=== PATIENT | female | born 1965 | race Two or more races ===

== ENCOUNTER 2020-08-29 08:49 | Outpatient (REF) | payer OTHER, SELFPAY ==
--- NOTE | 2020-08-29 08:53 | XR_ITS ---
EXAMINATION: XR KNEE, RIGHT XR KNEE, LEFT XR KNEE AP STANDING CLINICAL INFORMATION: Pain. COMPARISON: None TECHNIQUE: Lateral, tunnel, and sunrise views of the right knee. Lateral, tunnel, and sunrise views of the left knee. AP bilateral standing view of the knees was obtained. FINDINGS: Right knee: Bony alignment and mineralization are normal. There is very mild asymmetric narrowing of the medial joint space compartment, with a small peripheral osteophyte of the medial articular margin of the patella. The patellofemoral compartment appears mildly narrowed, and there is a patellar articular surface upper pole osteophyte. No fracture, dislocation or joint effusion is seen. There are ossific densities adjacent to the medial femoral condyle. No foreign body is seen. IMPRESSION: 1. There is mild osteoarthritic change of the right patellofemoral compartment, and very mild osteoarthritic change is seen of the medial joint space compartment. 2. No right knee fracture, dislocation or joint effusion is seen. 3. There are Julius-Stieda fragments adjacent to the right medial femoral condyle, suggesting old, healed MCL injury. FINDINGS: Left knee: Bones and soft tissues are normal. No fracture or joint effusion. Alignment is anatomic. Joint spaces are well maintained. No abnormal soft tissue calcification. IMPRESSION: Unremarkable left knee.
== END 2020-08-29 08:50 | disposition home or self-care (01) ==
LOC: CF 08:49
PROVIDERS: PCP Nurse Practitioner Family; Referring Provider Nurse Practitioner Family; Visit Provider Physician Assistant
DX: M22.2X2 Patellofemoral disorders, left knee (principal); M22.2X1 Patellofemoral disorders, right knee; E66.9 Obesity, unspecified; I10 Essential (primary) hypertension; E78.5 Hyperlipidemia, unspecified; I48.0 Paroxysmal atrial fibrillation
CPT/HCPCS: 20610; 73560; 73565; 99213; J1020

== ENCOUNTER 2020-09-14 01:15 | Emergency (ER) | payer OTHER, SELFPAY ==
[2020-09-14 01:25] VITALS: BP 149/70; PULSE 79; RESP 18; TEMP 37.1; O2SAT 100; BMI 36.6
--- NOTE | 2020-09-14 02:08 | CT_ITS ---
EXAMINATION: CT HEAD WITHOUT CONTRAST CLINICAL INFORMATION: Headache COMPARISON: None TECHNIQUE: Contiguous axial imaging was performed from the skull base to vertex without intravenous administration of contrast. This CT examination was performed using dose optimization techniques as appropriate, variously including the following: *Automated exposure control *Adjustment of mA and/or kV according to patient size (this includes techniques or standardized protocols for targeted exams where dose is matched to indication/reason for exam; i.e. extremities or head) *Use of iterative reconstruction technique DLP: 691 mGy-cm FINDINGS: There is no evidence of acute intracranial hemorrhage or territorial infarction. No abnormal mass effect or midline shift is seen. Torres to white matter differentiation is well preserved. No extra-axial fluid collections are identified. The ventricles are normal in size. There is no abnormal attenuation within the brain parenchyma. The osseous structures and soft tissues are normal. There is mild mucosal thickening of the paranasal sinuses. The mastoid air cells are well-aerated. CT/CT head/brain wo con IMPRESSION: No acute intracranial pathology.
--- NOTE | 2020-09-14 02:12 | ED.HA ---
HPI - Headache General Chief Complaint: Headache Stated Complaint: Mult complaints Time Seen by Provider: 09/14/20 02:08 History of Present Illness HPI Narrative: patient is a 55-year-old female with a history of similar headaches in the PAC presented today with having headaches that is bilateral. Not as affecting vision. Excruciating worse with light. Question fever. Also complaining of neck pain. Patient has no focal weaknesses. No change in smell or taste. No coughing or congestion or upper respiratory symptoms. No diaphoresis. Patient is from home. Positive history of high cholesterol. Positive history of hypertension. No history of stroke no history of being on blood thinners. Related Data Home Medications Medication Instructions Recorded Confirmed acetaminophen 300 mg-codeine 30 mg 1 tab PO PRN 08/23/20 tablet amlodipine 10 mg tablet 10 mg PO DAILY 08/23/20 amlodipine 5 mg tablet 5 mg PO DAILY 08/23/20 amoxicillin 875 mg-potassium 1 tab PO BID 08/23/20 clavulanate 125 mg tablet aripiprazole 5 mg tablet 5 mg PO DAILY 08/23/20 atorvastatin 10 mg tablet 10 mg PO DAILY 08/23/20 azithromycin 250 mg tablet mg PO DIRECTED 08/23/20 buprenorphine HCl 750 mcg buccal 750 mcg PO BID 08/23/20 film buspirone 15 mg tablet 15 mg PO BID 08/23/20 carvedilol 25 mg tablet 25 mg PO BID 08/23/20 cholecalciferol (vitamin D3) 50 50 mcg PO DAILY 08/23/20 mcg (2,000 unit) tablet cyclobenzaprine 10 mg tablet 10 mg PO TID 08/23/20 fluticasone propionate 110 0 mcg INHALATION 08/23/20 mcg/actuation HFA aerosol inhaler fluticasone propionate 220 0 mcg INHALATION 08/23/20 mcg/actuation HFA aerosol inhaler lisinopril 40 mg tablet 40 mg PO DAILY 08/23/20 lorazepam 0.5 mg tablet 0 mg PO 08/23/20 omeprazole 20 mg capsule,delayed 20 mg PO DAILY 08/23/20 release oxycodone 10 mg tablet 10 mg PO QID PRN 08/23/20 oxycodone 5 mg tablet 5 mg PO Q12H PRN 08/23/20 penicillin V potassium 500 mg 500 mg PO QID 08/23/20 tablet polyethylene glycol 3350 17 gram 17 g PO DAILY 08/23/20 oral powder packet prednisone 10 mg tablet 0 mg PO DIRECTED 08/23/20 rivaroxaban 20 mg tablet 20 mg PO DAILY 08/23/20 sertraline 100 mg tablet 0 mg PO 08/23/20 spironolactone 25 mg tablet 25 mg PO BID 08/23/20 zolpidem 10 mg tablet 10 mg PO BEDTIME PRN 08/23/20 Previous Rx's Medication Instructions Recorded ondansetron 4 mg PO TID PRN 5 Days #10 tab 09/14/20 Allergies Allergy/AdvReac Type Severity Reaction Status Date / Time ibuprofen [IBUPROFEN] Allergy Mild RASH, Verified 09/14/20 01:24 hives, hives Review of Systems Review of Systems: Constitutional: No Weight loss, No Fever, No Chills, No Night Sweats, No Fatigue, No Malaise ENT/Mouth: No Hearing loss, No Ear Pain, No Nasal Congestion, No Sinus Pain, No Hoarseness, No sore throat, No Rhinorrhea, No Swallowing Difficulty Eyes: No Eye Pain, No Swelling, No Redness, No Foreign Body, No Discharge, No Vision Changes Cardiovascular: No Chest Pain, No SOB, No Dyspnea on Exertion, No Orthopnea, No Edema, No Palpitations Respiratory: No Cough, No Sputum, No Wheezing, No Smoke Exposure, No Dyspnea Gastrointestinal: No Nausea, No Vomiting, No Diarrhea, No Constipation, No abdominal Pain, No Hematochezia, No Melena Genitourinary: no irregular bleeding, No Dysuria, No Urinary Frequency, No Hematuria, No Urinary Incontinence, No Urgency, No Flank Pain, No Urinary Flow Changes, No Hesitancy Musculoskeletal: No joint pain, No Myalgias, No Joint Swelling Skin: No Skin Lesions, No rash Neuro: No Weakness, No Numbness, No Paresthesias, No Loss of Consciousness, No Dizziness, No Headache Psych: No Anxiety/Panic, No Depression, No SI/HI/AH/VH, No Social Issues, Heme/Lymph: No Bruising, No Bleeding,No Lymphadenopathy Endocrine: No Polyuria, No Polydipsia, No Temperature Intolerance [facility] Past Medical History Medical History (Updated 09/14/20 @ 05:37 by Belia Rosa MD) Adenomatous polyp of colon Anxiety Asthma Auditory hallucinations Benign neoplasm breast skin Bursitis, shoulder Calcaneal spur Cervical pain (neck) Depression Dyspepsia Esophagitis GERD (gastroesophageal reflux disease) HTN (hypertension) Hyperlipidemia Hypertensive urgency Impaired glucose tolerance WENDY (obstructive sleep apnea) PAF (paroxysmal atrial fibrillation) Palpitations Xanthelasma Surgical History History of esophagogastroduodenoscopy History of hysterectomy History of removal of cyst Hx of cholecystectomy Status post Margarita fundoplication Family History Family History Father CVD (cardiovascular disease) HTN (hypertension) Diabetes Mother HTN (hypertension) Diabetes CVD (cardiovascular disease) Brother Pacemaker Maternal Grandmother Throat cancer Social History Social History Advance Directives: No Advance Directives Information Provided: No Physical Exam Vital Signs: Vital Signs: Vital Signs Temp Pulse Resp BP Pulse Ox 09/14/20 04:46 98.7 F 09/14/20 03:41 99.6 F 80 18 122/57 L 95 09/14/20 03:04 76 96 09/14/20 01:25 98.7 F 79 18 149/70 H 100 Body Mass Index 36.6 MDM - Headache MDM Narrative Medical decision making narrative: patient has no fever here in the emergency department. White count is normal. Symptoms completely resolved after treatment for migraine. Unlikely to have meningitis neurologically intact. Now there is no photophobia. patient's sed rate is 29 no evidence for temporal arteritis. Patient's CT scan of the head was negative for any gross evidence of bleeding. Patient is well appearing. Symptoms completely resolved. Will have patient continue NSAIDs and discharge patient home close follow-up on an outpatient basis. Differential Diagnosis Differential diagnosis: Likely migraine, tension headache, subarachnoid hemorrhage, headache and meningitis Medical Records Attestation: I reviewed the patient's medical records. Lab Data Attestation: I reviewed the patient's lab results. Result diagrams: 09/14/20 02:55 09/14/20 03:36 Labs: Lab Results 09/14/20 09/14/20 09/14/20 Range/Units 02:55 02:55 02:55 WBC 5.4 (4.8-10.8) X10*3/uL RBC 4.54 (4.20-5.50) X10*6/uL Hgb 12.3 (12.0-16.0) g/dl Hct 37.8 (37-47) % MCV 83.3 (80-98) fL MCH 27.1 (27.0-33.0) pg MCHC 32.5 (31.0-35.0) g/dl RDW 13.6 (11.0-16.0) % Plt Count 206 (160-400) X10*3/uL MPV 11.0 (9.4-12.3) fL Immature Gran % (Auto) 0.2 (0.0-0.4) % Neut % (Auto) 72.6 (45-73) % Lymph % (Auto) 14.3 L (20-40) % Saline % (Auto) 11.4 H (2-11) % Eos % (Auto) 1.1 (0-4) % Baso % (Auto) 0.4 (0-2) % Lymph # (Auto) 0.8 L (1.2-4.9) X10*3/uL Saline # (Auto) 0.6 (0.1-1.2) X10*3/uL Eos # (Auto) 0.1 (0.0-0.4) X10*3/uL Baso # (Auto) 0.0 (0.0-0.2) X10*3/uL Abs Immat Gran (auto) 0.01 (0.00-0.03) X10*3/uL Absolute Neuts (auto) 4.0 (2.0-8.3) X10*3/uL Absolute Nucleated RBC 0.000 (0.0-0.012) X10*3/uL Nucleated RBC % (auto) 0.0 (0.0-0.2) /100WBC ESR 29 H (0-20) MM/HR Sodium Cancelled Potassium Cancelled Chloride Cancelled Carbon Dioxide Cancelled Anion Gap Cancelled BUN Cancelled Creatinine Cancelled Estim Creat Clear Calc Cancelled Estimated GFR Cancelled Random Glucose Cancelled Calcium Cancelled C-Reactive Protein Cancelled Urine Color Urine Appearance Urine pH (5.0-8.0) Ur Specific [place] (1.005-1.025) Urine Protein (NEG-TRACE) MG/DL Urine Glucose (UA) (NEG) MG/DL Urine Ketones (NEG) MG/DL Urine Blood (NEG) Urine Nitrite (NEG) Ur Leukocyte Esterase (NEG) 09/14/20 09/14/20 09/14/20 Range/Units 03:36 03:36 04:47 WBC (4.8-10.8) X10*3/uL RBC (4.20-5.50) X10*6/uL Hgb (12.0-16.0) g/dl Hct (37-47) % MCV (80-98) fL MCH (27.0-33.0) pg MCHC (31.0-35.0) g/dl RDW (11.0-16.0) % Plt Count (160-400) X10*3/uL MPV (9.4-12.3) fL Immature Gran % (Auto) (0.0-0.4) % Neut % (Auto) (45-73) % Lymph % (Auto) (20-40) % Saline % (Auto) (2-11) % Eos % (Auto) (0-4) % Baso % (Auto) (0-2) % Lymph # (Auto) (1.2-4.9) X10*3/uL Saline # (Auto) (0.1-1.2) X10*3/uL Eos # (Auto) (0.0-0.4) X10*3/uL Baso # (Auto) (0.0-0.2) X10*3/uL Abs Immat Gran (auto) (0.00-0.03) X10*3/uL Absolute Neuts (auto) (2.0-8.3) X10*3/uL Absolute Nucleated RBC (0.0-0.012) X10*3/uL Nucleated RBC % (auto) (0.0-0.2) /100WBC ESR (0-20) MM/HR Sodium 139 Potassium 3.5 Chloride 107 Carbon Dioxide 22 Anion Gap 14 BUN 12 Creatinine 0.83 Estim Creat Clear Calc 79.2 Estimated GFR > 60 Random Glucose 109 Calcium 7.6 L C-Reactive Protein 1.41 H Urine Color YELLOW Urine Appearance CLEAR Urine pH 6.5 (5.0-8.0) Ur Specific [place] 1.020 (1.005-1.025) Urine Protein NEG (NEG-TRACE) MG/DL Urine Glucose (UA) NEG (NEG) MG/DL Urine Ketones NEG (NEG) MG/DL Urine Blood NEG (NEG) Urine Nitrite NEG (NEG) Ur Leukocyte Esterase NEG (NEG) Discharge Plan Discharge Clinical Impression: Headache Patient Disposition: Home, Self-Care Instructions: Acute Headache (ED) Prescriptions: New ondansetron 4 mg tablet,disintegrating 4 mg PO TID PRN (Reason: nausea and vomiting) 5 Days Qty: 10 RF: 0 Referrals: Alfredo Massey, [facility] [Primary Care Provider] - 2 days
[2020-09-14 03:00] LABS: MANUAL DIFF FLAG NO
[2020-09-14 03:01] LABS: Basophils Percent Auto 0.4 % (0-2); Eosinophils Absolute Auto 0.1 X10*3/uL (0.0-0.4); Eosinophils Percent Auto 1.1 % (0-4); Hematocrit 37.8 % (37-47); Hemoglobin 12.3 g/dl (12.0-16.0); Imm Gran Abs Auto 0.01 X10*3/uL (0.00-0.03); Imm Gran Pct Auto 0.2 % (0.0-0.4); Lymphocytes Absolute Auto 0.8 X10*3/uL (1.2-4.9); Lymphocytes Percent Auto 14.3 % (20-40); Mean Corpuscular HGB Conc 32.5 g/dl (31.0-35.0); Mean Corpuscular Hemoglobin 27.1 pg (27.0-33.0); Mean Corpuscular Volume 83.3 fL (80-98); Monocytes Absolute Auto 0.6 X10*3/uL (0.1-1.2); Monocytes Percent Auto 11.4 % (2-11); Neutrophils Percent Auto 72.6 % (45-73); Platelet Count 206 X10*3/uL (160-400); Red Blood Count 4.54 X10*6/uL (4.20-5.50); Red Cell Distribution Width 13.6 % (11.0-16.0); White Blood Count 5.4 X10*3/uL (4.8-10.8)
[2020-09-14] MEDS: diphenhydrAMINE HCL 50 MG/ML VIAL 25 MG IVPUSH (03:03)
[2020-09-14] MEDS: Ketorolac Tromethamine 30 MG/ML VIAL IVPUSH (03:03)
[2020-09-14] MEDS: 0.9 % Sodium Chloride 1,000 ML 999 ML IVCONT (03:03)
[2020-09-14 03:04] VITALS: PULSE 76; O2SAT 96
[2020-09-14] MEDS: Prochlorperazine Edisylate 10 MG/2 ML VIAL IVPUSH (03:04)
[2020-09-14 03:35] LABS: Erythrocyte Sedimentation Rate 29 MM/HR (0-20)
[2020-09-14 03:41] VITALS: BP 122/57; PULSE 80; RESP 18; TEMP 37.6; O2SAT 95
[2020-09-14 04:10] LABS: C Reactive Protein 1.41 mg/dL (< or = 0.50)
[2020-09-14 04:11] LABS: Anion Gap 14 (12-20); Blood Urea Nitrogen 12 mg/dL (9-16); Calcium 7.6 mg/dL (8.4-10.2); Carbon Dioxide 22 mmol/L (22-29); Chloride 107 mmol/L (96-108); Creatinine Clr Calc Pharmacy 79.2; Estimated Glomerular Filt Rate > 60; Glucose Random 109 mg/dL (60-115); Potassium 3.5 mmol/l (3.3-5.1); Sodium 139 mmol/L (135-145)
--- NOTE | 2020-09-14 04:24 | PC.NURSE ---
pt reports she is n longer experiencing pain, able to ambulate with steady gait. skin felt ht to touch earlier, now improved. pt never had fever while in ER.
[2020-09-14 04:46] VITALS: TEMP 37.1
[2020-09-14 05:01] LABS: Glucose Urine UA NEG (NEG); Leukocyte Esterase Urine NEG (NEG); Nitrite Urine NEG (NEG); PH 6.5 (5.0-8.0); Urine Blood NEG (NEG); Urine Ketones NEG (NEG); Urine Protein NEG (NEG-TRACE)
[2020-09-14 05:10] LABS: Appearance Urine CLEAR; Color Urine YELLOW
== END 2020-09-14 06:14 | disposition home or self-care (01) ==
PROVIDERS: Emergency Provider Emergency Medicine Emergency Medical Services; PCP Nurse Practitioner Family
DX: R51.9 Headache, unspecified (principal); M54.2 Cervicalgia; Z20.828 Contact with and (suspected) exposure to other viral communicable diseases; Z79.899 Other long term (current) drug therapy
CPT/HCPCS: 36415; 70450; 80048; 81003; 85025; 85652; 86140; 87635; 96361; 96374; 96375; 99284; J1200; J1885

== ENCOUNTER → 2020-10-02 12:42 | Outpatient (BNVA) | payer OTHER, SELFPAY | PROVIDERS: PCP Nurse Practitioner Family; Referring Provider Nurse Practitioner Family; Visit Provider Internal Medicine Gastroenterology | DX: K21.9 Gastro-esophageal reflux disease without esophagitis (principal); K59.09 Other constipation; R68.81 Early satiety; Z86.010 Personal history of colon polyps; Z79.899 Other long term (current) drug therapy | CPT/HCPCS: 99212 ==

== ENCOUNTER 2020-10-09 11:21 | Outpatient (REF) | payer OTHER, SELFPAY | END 2020-10-09 11:22 | disposition home or self-care (01) | LOC: HO.LAB 11:21 | PROVIDERS: Visit Provider Internal Medicine | DX: Z20.828 Contact with and (suspected) exposure to other viral communicable diseases (principal) | CPT/HCPCS: C9803; U0003 ==

== ENCOUNTER 2020-10-24 14:34 | Outpatient (REF) | payer OTHER, SELFPAY ==
[2020-10-26 13:13] LABS: BV Int Neg Control Negative (Negative); BV Int Pos Control Positive (Positive)
== END 2020-10-24 14:35 | disposition home or self-care (01) ==
LOC: HO.LAB 14:34
PROVIDERS: PCP Nurse Practitioner Family; Visit Provider Advanced Practice Midwife
DX: N89.8 Other specified noninflammatory disorders of vagina (principal)
CPT/HCPCS: 87480; 87510; 87660; 99212

== ENCOUNTER → 2020-11-25 09:24 | Outpatient (BNVA) | payer OTHER, SELFPAY | PROVIDERS: PCP Nurse Practitioner Family; Visit Provider Internal Medicine Cardiovascular Disease | DX: I48.0 Paroxysmal atrial fibrillation (principal); I10 Essential (primary) hypertension | CPT/HCPCS: 93005; 99212 ==

== ENCOUNTER 2020-11-25 10:21 | Emergency (ER) | payer OTHER, SELFPAY ==
--- NOTE | 2020-11-25 | XR_ITS ---
EXAMINATION: XR ANKLE, LEFT CLINICAL INFORMATION: Ankle pain. COMPARISON: None TECHNIQUE: AP, lateral, and mortise views of the left ankle. FINDINGS: There is bimalleolar soft tissue swelling. There are small bone fragments lateral to the mid tarsal bones question osteophytosis old healed fracture fragments on AP view. There is a moderate size calcaneal enthesophyte. XR/XR ankle LT min 3V IMPRESSION: No acute fracture or dislocation. Likely lateral enthesophytes are old fracture fragments lateral to the tarsal bones on AP projection. There is however mild bimalleolar soft tissue swelling. There is moderate size calcaneal heel spur.
--- NOTE | 2020-11-25 | XR_ITS ---
EXAMINATION: XR FOOT, LEFT CLINICAL INFORMATION: Foot pain. COMPARISON: None TECHNIQUE: AP, lateral, and oblique views of the left foot. FINDINGS: There is no visible fracture, dislocation or subluxation seen. There are small enthesophyte or bone fragment seen lateral to calculi or cuboid joint space. Same abnormality was seen on the left ankle exam. There is a moderate size calcaneal heel spur. XR/XR foot LT 2V IMPRESSION: Small loose body or an enthesophyte along the lateral foot at the calcaneocuboid junction. Moderate size calcaneal heel enthesophyte. No acute fracture or dislocation seen.
[2020-11-25 10:33] VITALS: BP 153/91; PULSE 68; RESP 18; TEMP 36.9; O2SAT 99; BMI 35.4
--- NOTE | 2020-11-25 10:47 | ED_ITS ---
HPI - Extremity Injury (Lower) General Chief Complaint: Extremity Injury, Lower Stated Complaint: left ankle inj Time Seen by Provider: 11/25/20 10:29 Source: patient Mode of arrival: ambulatory Limitations: no limitations History of Present Illness HPI Narrative: 55-year-old female here with left ankle pain status post fall 4 days ago. Patient tells me she missed a step falling approximately 4 stairs. There was no head strike or head injury or loss of consciousness. She tells me she had inversion injury to her left ankle and now has pain at the site. Pain is worsened with weight-bearing. complaint: ankle injury Onset (ago): day(s) Injury: Left: ankle and foot Type of Injury: inversion Place: home Severity: mild Relieving factors: nothing Exacerbating factors: nothing Context: fall Associated symptoms: swelling and able to partially bear weight Other symptoms: none Related Data Home Medications Medication Instructions Recorded Confirmed amlodipine 10 mg tablet 10 mg PO DAILY 08/23/20 11/25/20 aripiprazole 5 mg tablet 5 mg PO DAILY 08/23/20 11/25/20 buspirone 15 mg tablet 15 mg PO BID 08/23/20 11/25/20 cyclobenzaprine 10 mg tablet 10 mg PO TID 08/23/20 11/25/20 fluticasone propionate 110 0 mcg INHALATION 08/23/20 11/25/20 mcg/actuation HFA aerosol inhaler lisinopril 40 mg tablet 40 mg PO DAILY 08/23/20 11/25/20 lorazepam 0.5 mg tablet 0.5 mg PO tab 08/23/20 11/25/20 omeprazole 20 mg capsule,delayed 20 mg PO DAILY 08/23/20 11/25/20 release polyethylene glycol 3350 17 gram 17 g PO DAILY 08/23/20 11/25/20 oral powder packet sertraline 100 mg tablet 100 mg PO tab 08/23/20 11/25/20 spironolactone 25 mg tablet 25 mg PO BID 08/23/20 11/25/20 zolpidem 10 mg tablet 10 mg PO BEDTIME PRN 08/23/20 11/25/20 cholecalciferol (vitamin D3) 50 50 mcg PO DAILY 11/25/20 11/25/20 mcg (2,000 unit) capsule Previous Rx's Medication Instructions Recorded carvedilol 25 mg tablet 25 mg PO BID 90 Days #180 tab 09/30/20 omeprazole 20 mg capsule,delayed 20 mg PO BID 30 Days #60 cap 10/02/20 release fluticasone propionate 220 220 mcg INHALATION BID 30 Days #12 10/13/20 mcg/actuation HFA aerosol inhaler g atorvastatin 10 mg tablet 10 mg PO DAILY #90 tab 11/07/20 cholecalciferol (vitamin D3) 50 50 mcg PO DAILY #90 tab 11/07/20 mcg (2,000 unit) tablet rivaroxaban 20 mg tablet 20 mg PO DAILY #90 tab 11/10/20 Allergies Allergy/AdvReac Type Severity Reaction Status Date / Time ibuprofen [IBUPROFEN] Allergy Mild RASH, Verified 10/02/20 12:43 hives, hives Review of Systems Review of Systems: Yes all other systems are reviewed and are negative Constitutional: Constitutional: Reports no additional constitutional complaints, Denies body ache(s), Denies chills, Denies fever(s), Denies headache(s) and Denies weakness Eyes: Eyes: Reports no additional eye complaints and Denies change in vision ENT: Reports system reviewed and no additional complaints, except as documented, Denies dizziness, Denies headache(s), Denies nasal congestion, Denies nasal discharge and Denies neck pain Cardiovascular: Cardiovascular: Reports no additional cardiovascular compl aints, Denies chest pain, Denies leg edema and Denies dyspnea Respiratory: Respiratory: Reports no additional respiratory complaints, Denies cough and Denies dyspnea Gastrointestinal: Gastrointestinal: Reports no additional gastrointestinal complaints, Denies abdominal pain, Denies diarrhea, Denies nausea and Denies vomiting Genitourinary: Genitourinary: Reports no additional female genitourinary complaints and Denies urinary incontinence Musculoskeletal: Musculoskeletal: Reports no additional musculoskeletal complaints, Denies back pain, Reports arthralgias, Reports joint swelling, Denies neck pain, Denies numbness and Denies tingling Integumentary/Breasts: Skin/Breast: Reports system reviewed and no additional complaints, except as docu and Denies rash Neurologic: Reports system reviewed and no additional complaints, except as documented, Denies Abnormal speech present, Denies dizziness, Denies headache(s), Denies numbness, Denies tingling and Denies weakness PMFSH Past Medical History Attestation statement: The following information was validated with the patient. Source: old records reviewed and nursing notes reviewed Medical History Adenomatous polyp of colon Anxiety Asthma Auditory hallucinations Benign neoplasm breast skin Bursitis, shoulder Calcaneal spur Cervical pain (neck) Depression Dyspepsia Esophagitis GERD (gastroesophageal reflux disease) HTN (hypertension) Hyperlipidemia Hypertensive urgency Impaired glucose tolerance WENDY (obstructive sleep apnea) PAF (paroxysmal atrial fibrillation) Palpitations Xanthelasma Surgical History H/O esophagogastroduodenoscopy (09/01/15) H/O esophagogastroduodenoscopy (11/13/19) History of esophagogastroduodenoscopy (06/14/12) History of hysterectomy History of removal of cyst Hx of cholecystectomy Hx of colonoscopy Status post Margarita fundoplication (10/27/12) Family History Family History Father CVD (cardiovascular disease) HTN (hypertension) Diabetes Mother HTN (hypertension) Diabetes CVD (cardiovascular disease) Brother Pacemaker Maternal Grandmother Throat cancer Social History Social History Alcohol intake: current Alcohol intake frequency: does not drink Smoking Status: Never smoker Advance Directives: No Advance Directives Information Provided: Yes Physical Exam Vital Signs: Vital Signs: Last Vital Signs Temp 98.5 F 11/25/20 10:33 Pulse 68 11/25/20 10:33 Resp 18 11/25/20 10:33 BP 153/91 H 11/25/20 10:33 Pulse Ox 99 11/25/20 10:33 Body Mass Index 35.4 Const: General: cooperative, healthy appearing, comfortable and no acute d istress Orientation/consciousness: patient oriented x3 Limitations: no limitations HENMT: Head: Yes normal to inspection Ears: hearing grossly normal bilaterally General nose exam: Normal external nose present Face and sinus: Yes normal facial exam Mouth: Normal oral and palatal mucosa present Throat: Yes posterior oropharynx normal Eyes: General: appearance normal, both eyes and all related structures Pupils: Equal, round and reactive pupils present Neck: Neck: Yes normal visual inspection Chest: Chest palpation & inspection: normal inspection of the chest Resp: Effort & Inspection: normal respiratory effort Auscultation: clear to auscultation bilaterally Cardio: Rate: regular rate Rhythm: regular rhythm Peripheral pulses: Peripheral pulses 2+ throughout GI: Inspection: Yes normal to inspection Palpation (GI): Soft to palpation and nontender Auscultation: normal bowel sounds Back/Spine/Pelvis: Thoracic/Lumbar Spine: thoracic and lumbar spine normal to inspection Skin: General skin exam: no rashes or lesions noted Neuro: General: patient oriented x3, no focal motor deficits and normal sensation to monofilament Cranial nerves: Yes Equal, round and reactive pupils present Cognition (Neuro): normal cognition Speech: No Abnormal speech present Gait exam (Neuro): Normal gait present Motor exam (neuro): 5/5 motor strength present throughout Extrem: Other: Pain over to lateral ankle and base of 5th. No swelling, ecchymosis, warmth. FRom of the ankle and foot. NV intact distally. General: Yes normal to inspection Course Course Course Narrative: Will check imaging. 1150-Imaging unremarkable. Likely sprain. Reviewed worrisome signs and symptoms and when to return to the emergency department. Comfortable discharge home. Procedures Orthopedic Splinting/Casting Injury #1: Side: left Lower Extremity Injury Location: ankle Lower Extremity Immobilizer: AirCast Other Orthopedic Equipment: cane MDM - Extremity Injury (Lower) Medical Records Attestation: I reviewed the patient's medical records. Lab Data Attestation: I reviewed the patient's lab results. Imaging Data ankle/foot xray: Attestation: I personally reviewed and interpreted this imaging study as follows: Radiologist's impression: EXAMINATION: XR ANKLE, LEFT CLINICAL INFORMATION: Ankle pain. COMPARISON: None TECHNIQUE: AP, lateral, and mortise views of the left ankle. FINDINGS: There is bimalleolar soft tissue swelling. There are small bone fragments lateral to the mid tarsal bones question osteophytosis old healed fracture fragments on AP view. There is a moderate size calcaneal enthesophyte. XR/XR ankle LT min 3V IMPRESSION: No acute fracture or dislocation. Likely lateral enthesophytes are old fracture fragments lateral to the tarsal bones on AP projection. There is however mild bimalleolar soft tissue swelling. There is moderate size calcaneal heel spur. Discharge Plan Discharge Clinical Impression: Ankle sprain and strain Patient Disposition: Home, Self-Care Instructions: Ankle Sprain (ED) Additional Instructions: Tylenol for pain Ice, rest the ankle and use the air splint as discussed Try to limit some weight-bearing for the next few days to let it heal Prescriptions: No Action carvedilol 25 mg tablet 25 mg PO BID 90 Days Qty: 180 RF: 1 fluticasone propionate 220 mcg/actuation HFA aerosol inhaler 220 mcg inhalation BID 30 Days Qty: 12 RF: 4 cholecalciferol (vitamin D3) 50 mcg (2,000 unit) tablet 50 mcg PO DAILY Qty: 90 RF: 1 atorvastatin 10 mg tablet 10 mg PO DAILY Qty: 90 RF: 2 rivaroxaban [Xarelto] 20 mg tablet 20 mg PO DAILY Qty: 90 RF: 2 omeprazole 20 mg capsule,delayed release(DR/EC) 20 mg PO BID 30 Days Qty: 60 RF: 3 cholecalciferol (vitamin D3) 50 mcg (2,000 unit) capsule 50 mcg PO DAILY RF: 0 zolpidem 10 mg tablet 10 mg PO BEDTIME PRNRF: 0 lorazepam 0.5 mg tablet 0.5 mg PO RF: 0 polyethylene glycol 3350 17 gram powder in packet 17 g PO DAILY RF: 0 aripiprazole 5 mg tablet 5 mg PO DAILY RF: 0 buspirone 15 mg tablet 15 mg PO BID RF: 0 sertraline 100 mg tablet 100 mg PO RF: 0 lisinopril 40 mg tablet 40 mg PO DAILY RF: 0 spironolactone 25 mg tablet 25 mg PO BID RF: 0 omeprazole 20 mg capsule,delayed release(DR/EC) 20 mg PO DAILY RF: 0 amlodipine 10 mg tablet 10 mg PO DAILY RF: 0 cyclobenzaprine 10 mg tablet 10 mg PO TID RF: 0 Flovent HFA 110 mcg/actuation HFA aerosol inhaler 0 mcg inhalation RF: 0 Referrals: Alfredo Massey, [facility] [Primary Care Provider] - 2 days Interventions: ED Discharge Assessment Last Done: 11/25/20 11:40 Discharge Date/Time: 11/25/20 11:41
== END 2020-11-25 11:41 | disposition home or self-care (01) ==
PROVIDERS: Emergency Provider Emergency Medicine; PCP Nurse Practitioner Family
DX: S93.402A Sprain of unspecified ligament of left ankle, initial encounter (principal); S96.912A Strain of unspecified muscle and tendon at ankle and foot level, left foot, initial encounter; W10.8XXA Fall (on) (from) other stairs and steps, initial encounter; Y93.9 Activity, unspecified; Y92.9 Unspecified place or not applicable; Y99.9 Unspecified external cause status
CPT/HCPCS: 73610; 73620; 99282; 99283

== ENCOUNTER → 2020-12-05 09:37 | Outpatient (BNVA) | payer OTHER, SELFPAY | PROVIDERS: PCP Nurse Practitioner Family; Visit Provider Obstetrics & Gynecology | DX: N89.8 Other specified noninflammatory disorders of vagina (principal); N76.0 Acute vaginitis; B96.89 Other specified bacterial agents as the cause of diseases classified elsewhere | CPT/HCPCS: 99212 ==

== ENCOUNTER → 2020-12-12 08:03 | Outpatient (BNVA) | payer OTHER, SELFPAY | PROVIDERS: PCP Nurse Practitioner Family; Visit Provider Nurse Practitioner Family | DX: M47.27 Other spondylosis with radiculopathy, lumbosacral region (principal); M22.2X1 Patellofemoral disorders, right knee; M22.2X2 Patellofemoral disorders, left knee; M25.569 Pain in unspecified knee; M25.469 Effusion, unspecified knee | CPT/HCPCS: 99202 ==

== ENCOUNTER → 2020-12-16 13:51 | Outpatient (BNVA) | payer OTHER, SELFPAY | PROVIDERS: PCP Nurse Practitioner Family; Visit Provider Obstetrics & Gynecology | DX: N89.8 Other specified noninflammatory disorders of vagina (principal) | CPT/HCPCS: 99212 ==

== ENCOUNTER 2020-12-24 12:48 | Outpatient (REF) | payer OTHER, SELFPAY ==
--- NOTE | 2020-12-24 12:50 | US_ITS ---
EXAMINATION: ULTRASOUND EXTREMITY NONVASCULAR CLINICAL INFORMATION: Right knee pain COMPARISON: Previous x-ray August 2020 TECHNIQUE: Grayscale and color imaging of the soft tissues of the right knee FINDINGS: No Hayes's cyst is seen. The popliteal artery and vein are normal-appearing. There is a small suprapatellar joint effusion. US/US extremity nonvascular IMPRESSION: No Hayes's cyst seen.
== END 2020-12-24 12:49 | disposition home or self-care (01) ==
LOC: HO.US 12:48
PROVIDERS: PCP Nurse Practitioner Family; Visit Provider Anesthesiology
DX: M25.561 Pain in right knee (principal); M25.569 Pain in unspecified knee; R60.0 Localized edema
CPT/HCPCS: 76882

== ENCOUNTER → 2020-12-25 12:51 | Outpatient (BNVA) | payer OTHER, SELFPAY | PROVIDERS: PCP Nurse Practitioner Family; Visit Provider Internal Medicine Gastroenterology | DX: Z13.89 Encounter for screening for other disorder (principal) | CPT/HCPCS: Q3014 ==

== ENCOUNTER 2020-12-26 11:17 | Outpatient (REF) | payer OTHER, SELFPAY ==
[2020-12-26 11:38] LABS: MANUAL DIFF FLAG NO
[2020-12-26 11:52] LABS: Basophils Percent Auto 0.6 % (0-2); Eosinophils Absolute Auto 0.2 X10*3/uL (0.0-0.4); Eosinophils Percent Auto 3.1 % (0-4); Hematocrit 42.8 % (37-47); Hemoglobin 13.7 g/dl (12.0-16.0); Imm Gran Abs Auto 0.01 X10*3/uL (0.00-0.03); Imm Gran Pct Auto 0.2 % (0.0-0.4); Lymphocytes Absolute Auto 1.5 X10*3/uL (1.2-4.9); Lymphocytes Percent Auto 22.5 % (20-40); Mean Corpuscular Hemoglobin 26.9 pg (27.0-33.0); Mean Corpuscular Volume 84.1 fL (80-98); Mean Platelet Volume 11.3 fL (9.4-12.3); Monocytes Absolute Auto 0.4 X10*3/uL (0.1-1.2); Monocytes Percent Auto 5.4 % (2-11); Neutrophils Absolute Auto 4.5 X10*3/uL (2.0-8.3); Neutrophils Percent Auto 68.2 % (45-73); Platelet Count 276 X10*3/uL (160-400); Red Blood Count 5.09 X10*6/uL (4.20-5.50); White Blood Count 6.5 X10*3/uL (4.8-10.8)
[2020-12-26 12:19] LABS: Alanine Aminotransferase 21 U/L (0-31); Albumin Level 3.9 g/dL (3.5-5.0); Alkaline Phosphatase 107 U/L (39-117); Anion Gap 15 (12-20); Aspartate Amino Transferase 22 U/L (5-31); Bilirubin Total 0.4 mg/dL (0.0-1.0); Blood Urea Nitrogen 21 mg/dL (9-16); C Reactive Protein 1.32 mg/dL (< or = 0.50); Calcium 9.1 mg/dL (8.4-10.2); Carbon Dioxide 27 mmol/L (22-29); Chloride 105 mmol/L (96-108); Estimated Glomerular Filt Rate > 60; Glucose Random 113 mg/dL (60-115); Lipase 20 U/L (8-78); Potassium 5.2 mmol/L (3.3-5.1); Sodium 142 mmol/L (135-145); Total Protein 7.2 g/dL (6.5-8.0)
[2020-12-26 12:42] LABS: Glucose Urine UA NEG (NEG); Leukocyte Esterase Urine NEG (NEG); Nitrite Urine NEG (NEG); PH 7.5 (5.0-8.0); Urine Blood TRACE (NEG); Urine Ketones NEG (NEG); Urine Protein NEG (NEG-TRACE)
[2020-12-26 12:43] LABS: Appearance Urine CLEAR; Color Urine YELLOW
[2020-12-26 12:56] LABS: RBC Urine 0-2 /HPF (0); WBC Urine 0-2 /HPF (0-4)
[2020-12-26 12:57] LABS: Bacteria Urine TRACE /LPF; Squamous Epithelial Cell Urine 1+ /LPF
== END 2020-12-26 11:18 | disposition home or self-care (01) ==
LOC: HO.LAB 11:17
PROVIDERS: PCP Nurse Practitioner Family; Visit Provider Internal Medicine Gastroenterology
DX: R10.33 Periumbilical pain (principal)
CPT/HCPCS: 36415; 80053; 81001; 83690; 85025; 86140

== ENCOUNTER 2021-01-01 08:35 | Outpatient (REF) | payer OTHER, SELFPAY ==
--- NOTE | ~2021-01-01 | US_ITS ---
EXAMINATION: US ABDOMEN COMPLETE CLINICAL INFORMATION: Periumbilical pain. COMPARISON: CT abdomen and pelvis 08/16/2017. Ultrasound abdomen 07/25/2014. TECHNIQUE: Real-time imaging of the abdominal viscera. FINDINGS: PANCREAS: Most of the pancreas is obscured by overlying gas. ABDOMINAL AORTA: The proximal, mid, and distal segments are normal in caliber. INFERIOR VENA CAVA: Visualized portions are normal. LIVER: Normal. The liver is normal in size. The liver contour is normal. Parenchymal echogenicity is normal. No focal hepatic lesion. There is no intrahepatic biliary duct dilatation seen. GALLBLADDER: Surgically absent. COMMON BILE DUCT: Normal in caliber measuring 0.2 cm in diameter. RIGHT KIDNEY: Normal. No hydronephrosis. No renal calculi or focal parenchymal lesions. The kidney measures 9.1 cm in maximum dimension. LEFT KIDNEY: Normal. No hydronephrosis. No renal calculi or focal parenchymal lesions. The kidney measures 11.0 cm in maximum dimension. SPLEEN: Normal. The spleen measures 10.6 cm in maximum dimension. FREE FLUID: None. US/US abdomen complete IMPRESSION: Unremarkable complete abdomen ultrasound.
== END 2021-01-01 08:36 | disposition home or self-care (01) ==
LOC: HO.US 08:35
PROVIDERS: Visit Provider Internal Medicine Gastroenterology
DX: R10.33 Periumbilical pain (principal)
CPT/HCPCS: 76700

== ENCOUNTER 2021-01-15 09:48 | Outpatient (REF) | payer OTHER, SELFPAY ==
--- NOTE | ~2021-01-15 | XR_ITS ---
EXAMINATION: XR CERVICAL SPINE CLINICAL INFORMATION: M54.2 - Cervicalgia COMPARISON: None TECHNIQUE: 3 views of the cervical spine were obtained. FINDINGS: There is borderline rightward tilting cervical spine. Cervical lordosis is within normal. There is no cervical vertebral compression or visible fracture, destructive process, or prevertebral soft tissue swelling. The odontoid appears intact. There are degenerative disc changes C5-C6 and C6-C7 with disc space narrowing and endplate sclerosis and vertebral spurring. Borderline facet degeneration also present mid cervical spine. No visible erosive changes. XR/XR cervical spine 3V IMPRESSION: Degenerative disc changes and vertebral spurring C5-C6 and C6-C7.
[2021-01-15 11:44] LABS: Alanine Aminotransferase 19 U/L (0-31); Albumin Level 3.9 g/dL (3.5-5.0); Alkaline Phosphatase 114 U/L (39-117); Anion Gap 14 (12-20); Aspartate Amino Transferase 16 U/L (5-31); Bilirubin Total 0.7 mg/dL (0.0-1.0); Blood Urea Nitrogen 15 mg/dL (9-16); Calcium 9.2 mg/dL (8.4-10.2); Carbon Dioxide 28 mmol/L (22-29); Chloride 106 mmol/L (96-108); Cholesterol 200 mg/dL; Estimated Glomerular Filt Rate > 60; Glucose Fasting 119 mg/dL (60-99); HDL Cholesterol 59 mg/dL; LDL Cholesterol Calculated 122 mg/dl; Potassium 4.3 mmol/L (3.3-5.1); Sodium 144 mmol/L (135-145); Total Protein 6.9 g/dL (6.5-8.0); Triglycerides 97 mg/dL
[2021-01-15 12:09] LABS: TSH reflex Free T4 2.71 uIU/mL (0.32-4.0)
[2021-01-15 12:36] LABS: Glucose Urine UA NEG (NEG); Leukocyte Esterase Urine NEG (NEG); Nitrite Urine NEG (NEG); Urine Blood TRACE (NEG); Urine Ketones NEG (NEG); Urine Protein NEG (NEG-TRACE)
[2021-01-15 12:40] LABS: Appearance Urine HAZY; Color Urine YELLOW
[2021-01-15 13:05] LABS: Bacteria Urine TRACE /LPF; RBC Urine 0 /HPF (0); Squamous Epithelial Cell Urine TRACE /LPF; WBC Urine 0 /HPF (0-4)
== END 2021-01-15 09:49 | disposition home or self-care (01) ==
LOC: HO.HMGCLDS 09:48
PROVIDERS: Absent Provider Internal Medicine Gastroenterology; PCP Nurse Practitioner Family; Visit Provider Nurse Practitioner Family
DX: I10 Essential (primary) hypertension (principal); M54.2 Cervicalgia; R10.33 Periumbilical pain
CPT/HCPCS: 36415; 72040; 80053; 80061; 81001; 81003; 84443

== ENCOUNTER 2021-01-27 06:09 | Outpatient (REF) | payer OTHER, SELFPAY ==
--- NOTE | ~2021-01-27 | FL_ITS ---
EXAMINATION: XR FLUOROSCOPY WITH IMAGES CLINICAL INFORMATION: M47.27 - Other spondylosis with radiculopathy, lumbosacral region COMPARISON: CT lumbar spine 12/14/2019 TECHNIQUE: Fluoroscopy performed by María Vicente NP. Fluoroscopy time: 0.3 minutes DAP: 2.29 Gycm2 Images: 1 FINDINGS: There is spinal needle overlying the outer left L5-S1 neural foramen. There is contrast in the nerve sheath with transforaminal epidural extension. FL/FL guidance in treatment room IMPRESSION: Fluoroscopy for pain management procedure.
== END 2021-01-27 06:10 | disposition home or self-care (01) ==
LOC: HO.RADIR 06:09
PROVIDERS: Visit Provider Anesthesiology
DX: M47.27 Other spondylosis with radiculopathy, lumbosacral region (principal); M22.2X1 Patellofemoral disorders, right knee; M22.2X2 Patellofemoral disorders, left knee
CPT/HCPCS: 64483; J3300; Q9967

== ENCOUNTER 2021-01-29 12:44 | Outpatient (REF) | payer OTHER, SELFPAY ==
--- NOTE | ~2021-01-29 | MM_ITS ---
EXAMINATION: MM SCREENING DIGITAL BREAST TOMOSYNTHESIS, BILATERAL CLINICAL INFORMATION: Screening. Asymptomatic. The lifetime risk of breast cancer based on the Tyrer-Cuzick Model is 11.8%. COMPARISON: Mammography: January 24, 2020 and studies dating back to July 14, 2012 TECHNIQUE: Digital breast tomosynthesis is performed in both the craniocaudal and mediolateral oblique views along with computer-aided detection (CAD). Synthesized 2D images are generated from the tomosynthesis. FINDINGS: There are scattered areas of fibroglandular density (ACR BI-RADS breast composition Category b). There are no significant masses, abnormal calcifications, or other abnormalities. MM/MM tomosynthesis screening BI IMPRESSION: There are no significant changes from prior study. ASSESSMENT: BI-RADS 1: Negative RECOMMENDATION: Routine annual mammography screening. This patient's information was entered into a reminder system with a target due date for their next mammogram.
== END 2021-01-29 12:45 | disposition home or self-care (01) ==
LOC: HO.MAMMO 12:44
PROVIDERS: PCP Nurse Practitioner Family; Visit Provider Nurse Practitioner Family
DX: Z12.31 Encounter for screening mammogram for malignant neoplasm of breast (principal)
CPT/HCPCS: 77063; 77067

== ENCOUNTER 2021-02-13 06:58 | Day surgery (SDC) | payer OTHER, SELFPAY ==
[2021-02-06 13:41] VITALS: BMI 39.3
--- NOTE | 2021-02-12 10:36 | P.CONAN_ITS ---
Documented by User: Irais Elizabeth 02/12/21 10:39 HPI - Anesthesia Eval Consult details Narrative: 55yo F for Upper Endoscopy and Colonoscopy Xarelto (PAF, rare symptoms per Cardiology routing visit 11/2020) [facility] Active Problems Active Problems: All Active Problems (Updated 02/06/21 @ 13:40 by Radha Alejo) Patellofemoral arthralgia of both knees (Acute) Obesity (Acute) Foot pain, bilateral (Acute) GERD (gastroesophageal reflux disease) (Acute) Early satiety (Acute) Chronic constipation (Acute) Vaginal lesion (Acute) HTN (hypertension) (Acute) Paroxysmal atrial fibrillation (Acute) Bacterial vaginosis (Acute) Bilateral primary osteoarthritis of knee (Acute) Spondylosis of lumbosacral spine with radiculopathy (Acute) Pain and swelling of knee (Acute) Continuous periumbilical abdominal pain (Acute) Dyslipidemia (Acute) Elevated fasting blood sugar (Acute) Adenomatous polyp of colon (Acute) Cervical pain (neck) (Acute) Past Medical History Medical History (Updated 02/12/21 @ 10:38 by Irais Elizabeth) Adenomatous polyp of colon Anxiety Asthma Auditory hallucinations Benign neoplasm breast skin Bursitis, shoulder Calcaneal spur Cervical pain (neck) Depression Dyspepsia Esophagitis GERD (gastroesophageal reflux disease) HTN (hypertension) Hyperlipidemia Hypertensive urgency Impaired glucose tolerance WENDY (obstructive sleep apnea) PAF (paroxysmal atrial fibrillation) Palpitations Xanthelasma Family History Family History Father CVD (cardiovascular disease) HTN (hypertension) Diabetes Mother HTN (hypertension) Diabetes CVD (cardiovascular disease) Brother Pacemaker Maternal Grandmother Throat cancer Brother No problems noted. Daughter Hx LEEP (loop electrosurgical excision procedure), cervix, Surgical History Surgical History (Updated 02/06/21 @ 13:28 by Radha Alejo) H/O esophagogastroduodenoscopy (09/01/15) H/O esophagogastroduodenoscopy (11/13/19) History of esophagogastroduodenoscopy (06/14/12) History of hysterectomy History of removal of cyst Hx of cholecystectomy Hx of colonoscopy Status post Margarita fundoplication (10/27/12) Social History Social History (Updated 12/25/20 @ 12:55 by Shira Julien [facility]) Household Members: None Are you a primary intensive care specialist to a significant other at home: No Alcohol intake: current Alcohol intake frequency: does not drink Smoking Status: Never smoker Use of substances other than those prescribed or required for medical reasons: No Have you been hit, kicked, punched, or otherwise hurt by someone within the past year? If so, by whom?: No Advance Directives: No Advance Directives Information Provided: No Advance Directives on File: No Recently lost weight without trying: No Current occupational status: disabled Sexual orientation: Straight/Heterosexual Gender identity: female Meds Allergies Allergy/AdvReac Type Severity Reaction Status Date / Time ibuprofen [IBUPROFEN] Allergy Mild RASH, Verified 02/06/21 13:29 hives, hives Home Medications Medication Instructions Recorded Confirmed Last Taken Type amlodipine 10 mg tablet 10 mg PO DAILY 08/23/20 02/06/21 Unknown History aripiprazole 5 mg tablet 5 mg PO DAILY 08/23/20 02/06/21 Unknown History buspirone 15 mg tablet 15 mg PO BID 08/23/20 02/06/21 Unknown History fluticasone propionate 110 1 puff INHALATION BID 08/23/20 02/06/21 Unknown History mcg/actuation HFA aerosol inhaler lisinopril 40 mg tablet 40 mg PO DAILY 08/23/20 02/06/21 Unknown History lorazepam 0.5 mg tablet 0.5 mg PO tab 08/23/20 01/12/21 02/13/21 06:00 History omeprazole 20 mg capsule,delayed 20 mg PO DAILY 08/23/20 02/06/21 Unknown History release polyethylene glycol 3350 17 gram 17 g PO DAILY 08/23/20 01/12/21 Unknown History oral powder packet sertraline 100 mg tablet 100 mg PO tab 08/23/20 01/12/21 Unknown History spironolactone 25 mg tablet 25 mg PO BID 08/23/20 02/06/21 Unknown History zolpidem 10 mg tablet 10 mg PO BEDTIME PRN 08/23/20 02/06/21 Unknown History cholecalciferol (vitamin D3) 50 50 mcg PO DAILY 11/25/20 02/06/21 Unknown History mcg (2,000 unit) capsule Exam Exam Date and Time: February 12, 2021 1036 Height,Weight and Vital Signs: Height 5 ft 2 in Weight 97.522 kg Pertinent Lab Results Pertinent Lab Results: Laboratory Tests 12/26/20 01/15/21 11:32 09:55 WBC 6.5 Hgb 13.7 Hct 42.8 Plt Count 276 D Sodium 144 Potassium 4.3 Chloride 106 Carbon Dioxide 28 BUN 15 Creatinine 0.87 Narrative Narrative: EKG 11/2020 normal sinus rhythm with minimal voltage criteria for LVH with normal axis and normal intervals Assessment and Plan Assessment Anesthesia Assessment: Chart Reviewed Documented by User: Josseline Sosa 02/13/21 08:35 [facility] Past Medical History Medical History (Updated 02/12/21 @ 10:38 by Irais Elizabeth) Adenomatous polyp of colon Anxiety Asthma Auditory hallucinations Benign neoplasm breast skin Bursitis, shoulder Calcaneal spur Cervical pain (neck) Depression Dyspepsia Esophagitis GERD (gastroesophageal reflux disease) HTN (hypertension) Hyperlipidemia Hypertensive urgency Impaired glucose tolerance WENDY (obstructive sleep apnea) PAF (paroxysmal atrial fibrillation) Palpitations Xanthelasma Family History Family History Father CVD (cardiovascular disease) HTN (hypertension) Diabetes Mother HTN (hypertension) Diabetes CVD (cardiovascular disease) Brother Pacemaker Maternal Grandmother Throat cancer Brother No problems noted. Daughter Hx LEEP (loop electrosurgical excision procedure), cervix, Surgical History Surgical History (Updated 02/06/21 @ 13:28 by Radha Alejo) H/O esophagogastroduodenoscopy (09/01/15) H/O esophagogastroduodenoscopy (11/13/19) History of esophagogastroduodenoscopy (06/14/12) History of hysterectomy History of removal of cyst Hx of cholecystectomy Hx of colonoscopy Status post Margarita fundoplication (10/27/12) Social History Social History (Updated 12/25/20 @ 12:55 by Shira Julien [facility]) Household Members: None Are you a primary intensive care specialist to a significant other at home: No Alcohol intake: current Alcohol intake frequency: does not drink Smoking Status: Never smoker Use of substances other than those prescribed or required for medical reasons: No Have you been hit, kicked, punched, or otherwise hurt by someone within the past year? If so, by whom?: No Advance Directives: No Advance Directives Information Provided: No Advance Directives on File: No Recently lost weight without trying: No Current occupational status: disabled Sexual orientation: Straight/Heterosexual Gender identity: female Meds Allergies Allergy/AdvReac Type Severity Reaction Status Date / Time ibuprofen [IBUPROFEN] Allergy Mild RASH, Verified 02/06/21 13:29 hives, hives Home Medications Medication Instructions Recorded Confirmed Last Taken Type amlodipine 10 mg tablet 10 mg PO DAILY 08/23/20 02/06/21 Unknown History aripiprazole 5 mg tablet 5 mg PO DAILY 08/23/20 02/06/21 Unknown History buspirone 15 mg tablet 15 mg PO BID 08/23/20 02/06/21 Unknown History fluticasone propionate 110 1 puff INHALATION BID 08/23/20 02/06/21 Unknown History mcg/actuation HFA aerosol inhaler lisinopril 40 mg tablet 40 mg PO DAILY 08/23/20 02/06/21 Unknown History lorazepam 0.5 mg tablet 0.5 mg PO tab 08/23/20 01/12/21 02/13/21 06:00 History omeprazole 20 mg capsule,delayed 20 mg PO DAILY 08/23/20 02/06/21 Unknown History release polyethylene glycol 3350 17 gram 17 g PO DAILY 08/23/20 01/12/21 Unknown History oral powder packet sertraline 100 mg tablet 100 mg PO tab 08/23/20 01/12/21 Unknown History spironolactone 25 mg tablet 25 mg PO BID 08/23/20 02/06/21 Unknown History zolpidem 10 mg tablet 10 mg PO BEDTIME PRN 08/23/20 02/06/21 Unknown History cholecalciferol (vitamin D3) 50 50 mcg PO DAILY 11/25/20 02/06/21 Unknown History mcg (2,000 unit) capsule Exam Airway Mallampati Class: II TM Dist: >3cm Neck ROM: Full Heart: RRr Lungs: CTA BL Assessment and Plan Assessment Anesthesia Assessment: Anesthesia Plan Discussed and Chart Reviewed Final Anesthetic Review NPO: Yes ASA Class: III Final Preanesthetic Review: No Changes in Pt Med Stat and Consent Obtained/Reviewed Patient Risk: Intermediate Procedure Risk: Intermediate Anesthetic Plan Anesthetic Plan: MAC: Disposition: Standard PACU
[2021-02-13 07:54] VITALS: BP 149/83; PULSE 85; RESP 16; TEMP 36.9; O2SAT 97
[2021-02-13] MEDS: Lactated Ringers 1,000 ML 100 ML IVCONT (08:07)
--- NOTE | 2021-02-13 08:36 | P.OP_ITS ---
Operative Note Operative Note Date of Service: 02/13/21 Narrative: Pre-op diagnosis: colon cancer screening, hx of colon polyps, rectal bleeding, FU of Lynch's Post-op diagnosis: other (GERD, Gastritis, colon polyps, diverticulosis, hemorrhoids) Procedure: FLEXIBLE TRANSORAL UPPER GASTROINTESTINAL ENDOSCOPY WITH BIOPSIES AND ESOPHAGEAL BALLOON DILATION AND COLONOSCOPY TILL CECUM UPPER ENDOSCOPY Consent: Indications for the procedure and potential complications of bleeding, perforation, reaction to medications and missed diagnosis were discussed with the patient and informed consent was obtained. Instrument: Olympus GIF H 190 mid size upper endoscope Monitoring: Vital signs and clinical assessment, continuous EKG monitoring, Pulse oximetry, Carbon Dioxide monitoring and blood pressure monitoring were done throughout the procedure. Procedure: The patient was placed in the left lateral decubitis position and pre-procedure medications were administered and a bite block was placed. The endoscope was inserted into the mouth and advanced under direct vision to the third part of duodenum. A careful inspection was made as the upper endoscope was withdrawn including a retroflexed examination of the proximal stomach; Findings and interventions are described below. Findings: Larynx: Normal Esophagus: GE junction at 35 cms. Focal esophagitis at GE junction with 1 cms tongue of Lynhc's - biopsied. Balloon dilation was performed with 19 and 20 mm CRE balloon x 60 seconds at each level.. Stomach: Mild gastric erythema. Biopsies were obtained. Grade 2 flap valve and intact fundal wrap on retroflexed examination of the cardia. Duodenum: Normal bulb and descending duodenum. Biopsies were obtained from 3rd part of duodenum to check for celiac sprue. Intervention: Biopsies and esophageal balloon dilation to 20 mm (60 Upper Sorbian) as noted above COLONOSCOPY PROCEDURE NOTE Consent: Indications for the procedure and potential complications of bleeding, perforation, reaction to medications and missed diagnosis were discussed with the patient and informed consent was obtained. Instrument: Olympus PCF H 190 L variable stiffness pediatric colonoscope Monitoring: Vital signs and clinical assessment, intermittent blood pressure monitoring, continuous EKG monitoring, Pulse oximetry and Carbon Dioxide monitoring were done throughout the procedure. Colon withdrawl time was 20 minutes. Procedure: The patient was placed in the left lateral decubitis position and pre-procedure medications were administered. After a digital rectal examination of the ano-rectum, the video colonoscope was inserted into the rectum and advanced through the colon to the cecum. The colonoscope was slowly withdrawn in a retrograde panoramic fashion and the colon mucosa was carefully examined including a retroflexed view of the rectum. Findings and interventions are described below. Procedure Difficulty: : Without difficulty Findings: Terminal Ileum: Not evaluated Cecum: Normal Ascending Colon: Normal Transverse Colon: Normal Descending Colon: Moderate diverticulosis Sigmoid Colon: Moderate diverticulosis Rectum: Normal Ano-rectum: Moderate internal hemorrhoids Colon preparation: Fair despite copious irrigation. There was adherent stool in the right and transverse colon. No large lesions were seen Impression and Post Procedure Diagnosis: Endoscopy Findings: ESOPHAGUS: Focal esophagitis at GE junction with 1 cms tongue of Lynch's - biopsied. Balloon dilation was performed with 19 and 20 mm CRE balloon x 60 seconds at each level. STOMACH: Gastritis and intact fundal wrap on retroflexed exam Colonoscopy Findings: No polyps were detected. Moderate diverticulosis seen in the left colon Moderate hemorrhoids on retroflexed exam. Plan: Await pathology results Patient has an appointment on 02/19/21 in the GI [facility] with Mara Burger M.D.. Repeat Colonoscopy interval based on path results - in 3 years due to fair prep. Above findings were reviewed with the patient and GERD and diverticulosis handouts were given in the discharge area Surgeon: Mara Burger MD Anesthesia: MAC (Dr Parrish) Crusher And Blender Operator: Isidro Cedeño Estimated blood loss (mL): 0 Pathology: other (A- SMALL BOWEL BXS R/O CELIAC B- GASTRIC ANTRUM BXS R/O H. PYLORI C- ESOPHAGEAL BXS F/U ON BARETT'S) Condition: stable Disposition: PACU
--- NOTE | 2021-02-13 08:36 | MHC.SHP ---
Pre-Procedural Eval Section A The patient is an INPATIENT: No The History & Physical has been completed within 30 days and I have reviewed it.: No Section B Chief Complaint: reflux disease Details of Present Illness: colon cancer screening, hx of colon polyps, rectal bleeding, FU of Lynch's, dysphagia Relevant Family History (Specify if Yes): No Relevant Social History: None Present Medications: see Short Stay Collaborative assessment Medical History: Significant History (Adenomatous polyp of colon Anxiety Asthma Auditory hallucinations Benign neoplasm breast skin Bursitis, shoulder Calcaneal spur Cervical pain (neck) Depression Dyspepsia Esophagitis GERD (gastroesophageal reflux disease) HTN (hypertension) Hyperlipidemia Hypertensive urgency Impaired glucose toleran) History of Previous Operations: Relevant previous surgery/procedure and date(s) (H/O esophagogastroduodenoscopy (09/01/15) H/O esophagogastroduodenoscopy (11/13/19) History of esophagogastroduodenoscopy (06/14/12) History of hysterectomy History of removal of cyst Hx of cholecystectomy Hx of colonoscopy Status post Margarita fundoplication (10/27/12)) Allergies: Allergies Allergy/AdvReac Type Severity Reaction Status Date / Time ibuprofen [IBUPROFEN] Allergy Mild RASH, Verified 02/06/21 13:29 hives, hives Review of Systems Sugical H&P ROS: Negative: Constitution, Cardiovascular and Respiratory and Yes, Specify: Gastrointestinal (abdominal pain, dysphagia, constipation) Exam Surgical H&P Exam: Normal: Heart, Normal: Lungs, Normal: Extremities and Normal: Abdomen Plan Diagnosis/Plan: Unchanged I have reviewed the history and physical and performed a pertinent physical examination on my patient. No changes have occurred unless specified.
[2021-02-13 09:42] VITALS: BP 120/72; PULSE 77; RESP 16; TEMP 36.9; O2SAT 98
[2021-02-13 09:56] VITALS: BP 125/83; PULSE 68; RESP 18; TEMP 36.8; O2SAT 99
== END 2021-02-13 12:43 | disposition home or self-care (01) ==
PROVIDERS: PCP Nurse Practitioner Family; Visit Provider Internal Medicine Gastroenterology
PROC: (CPT 43249; principal; 2021-02-13 08:20)
DX: Z12.11 Encounter for screening for malignant neoplasm of colon (principal); Z86.010 Personal history of colon polyps; K57.30 Diverticulosis of large intestine without perforation or abscess without bleeding; K64.8 Other hemorrhoids; K21.9 Gastro-esophageal reflux disease without esophagitis; K22.70 Barrett's esophagus without dysplasia; K29.50 Unspecified chronic gastritis without bleeding; I10 Essential (primary) hypertension; G47.33 Obstructive sleep apnea (adult) (pediatric); J45.909 Unspecified asthma, uncomplicated; Z79.899 Other long term (current) drug therapy; Z88.8 Allergy status to other drugs, medicaments and biological substances
CPT/HCPCS: 43249; 43239; G0105; 88305; 88342; C1726

== ENCOUNTER → 2021-02-19 14:41 | Outpatient (BNVA) | payer OTHER, SELFPAY | PROVIDERS: PCP Nurse Practitioner Family; Visit Provider Internal Medicine Gastroenterology | DX: R10.33 Periumbilical pain (principal); K22.70 Barrett's esophagus without dysplasia; K59.09 Other constipation; K21.9 Gastro-esophageal reflux disease without esophagitis; R68.81 Early satiety; D12.6 Benign neoplasm of colon, unspecified; Z79.899 Other long term (current) drug therapy | CPT/HCPCS: 99212 ==

== ENCOUNTER → 2021-03-02 08:10 | Outpatient (BNVA) | payer OTHER, SELFPAY | PROVIDERS: PCP Nurse Practitioner Family; Visit Provider Anesthesiology | DX: M47.27 Other spondylosis with radiculopathy, lumbosacral region (principal); M25.569 Pain in unspecified knee; M25.469 Effusion, unspecified knee; M51.36 Other intervertebral disc degeneration, lumbar region; Z79.899 Other long term (current) drug therapy | CPT/HCPCS: Q3014 ==

== ENCOUNTER → 2021-03-04 10:35 | Outpatient (BNVA) | payer OTHER, SELFPAY | PROVIDERS: PCP Nurse Practitioner Family; Visit Provider Nurse Practitioner Family ==

== ENCOUNTER 2021-03-16 10:24 | Emergency (ER) | payer OTHER, SELFPAY ==
--- NOTE | ~2021-03-16 | XR_ITS ---
EXAMINATION: XR CHEST CLINICAL INFORMATION: Chest pain COMPARISON: Chest radiographs 11/19/2017, 08/03/2017 TECHNIQUE: Portable upright AP view of the chest was obtained. FINDINGS: The lungs are clear. There is no pneumothorax, airspace consolidation, pleural reaction, or groundglass opacity. No effusion. The costophrenic sulci are well-defined. The heart is normal in size. The vascularity is unremarkable. The hilar and mediastinal contours are unremarkable. There are degenerative changes thoracic spine and right axillary clips again seen. XR/XR chest 1V IMPRESSION: Unremarkable examination.
[2021-03-16 11:07] VITALS: BP 173/79; PULSE 67; RESP 18; TEMP 36.8; O2SAT 98; BMI 40.2
--- NOTE | 2021-03-16 11:15 | ECG_ITS ---
Test Reason : CP Blood Pressure : / mmHG Vent. Rate : 061 BPM Atrial Rate : 061 BPM P-R Int : 144 ms QRS Dur : 082 ms QT Int : 434 ms P-R-T Axes : 045 003 046 degrees QTc Int : 436 ms Normal sinus rhythm Minimal voltage criteria for LVH, may be normal variant Borderline ECG When compared with ECG of 31-AUG-2018 17:14, No significant change was found Referred By: Generic ED Physician Electronically Signed By:MARLO LIZAMA MD
--- NOTE | 2021-03-16 11:52 | ED_ITS ---
HPI - Chest Pain General Chief Complaint: Chest Pain Stated Complaint: HBP Time Seen by Provider: 03/16/21 11:51 Source: patient Mode of arrival: ambulatory Limitations: no limitations History of Present Illness HPI narrative: 55 yo female with hx of GERD, HTN, PAF on xarelto comes in with L sided sharp chest pain last night she has had increasing CWP since her last COVID vaccine denies any dyspnea or nausea but notes her BP was up to 190s took her medications always compliant with her AC therapy MD complaint: chest pain Pertinent past history: other Onset (ago): day(s) (last night) Timing of current episode: episodic Prior episodes: Yes Onset: during rest Pain location: left chest Pain radiation: none Severity: moderate Quality: sharp Relieving factors: nothing Exacerbating factors: palpation and movement Context: other (chest pain daily for months/years) Treatment prior to arrival: other (takes all of her medications) Related Data Home Medications Medication Instructions Recorded Confirmed amlodipine 10 mg tablet 10 mg PO DAILY 08/23/20 03/16/21 aripiprazole 5 mg tablet 5 mg PO DAILY 08/23/20 03/16/21 buspirone 15 mg tablet 15 mg PO BID 08/23/20 03/16/21 fluticasone propionate 110 1 puff INHALATION BID 08/23/20 03/16/21 mcg/actuation HFA aerosol inhaler lisinopril 40 mg tablet 40 mg PO DAILY 08/23/20 03/16/21 lorazepam 0.5 mg tablet 0.5 mg PO tab 08/23/20 03/16/21 omeprazole 20 mg capsule,delayed 20 mg PO DAILY 08/23/20 03/16/21 release polyethylene glycol 3350 17 gram 17 g PO DAILY 08/23/20 03/16/21 oral powder packet sertraline 100 mg tablet 100 mg PO tab 08/23/20 03/16/21 spironolactone 25 mg tablet 25 mg PO BID 08/23/20 03/16/21 zolpidem 10 mg tablet 10 mg PO BEDTIME PRN 08/23/20 03/16/21 cholecalciferol (vitamin D3) 50 50 mcg PO DAILY 11/25/20 03/16/21 mcg (2,000 unit) capsule Previous Rx's Medication Instructions Recorded carvedilol 25 mg tablet 25 mg PO BID 90 Days #180 tab 09/30/20 rivaroxaban 20 mg tablet 20 mg PO DAILY #90 tab 11/10/20 blood pressure kit-extra large #1 ea 01/12/21 atorvastatin 20 mg tablet 20 mg PO DAILY 90 Days #90 tab 01/15/21 tizanidine 4 mg tablet 4 mg PO TID PRN 30 Days #90 tab 03/02/21 amoxicillin 875 mg-potassium 1 tab PO BID #20 tab 03/05/21 clavulanate 125 mg tablet cyclobenzaprine 10 mg PO TID PRN #14 tab 03/16/21 lidocaine 1 patch TOPICAL DAILY PRN #10 ea 03/16/21 Allergies Allergy/AdvReac Type Severity Reaction Status Date / Time ibuprofen [IBUPROFEN] Allergy Mild RASH, Verified 03/16/21 11:22 hives, hives Review of Systems Review of Systems: Constitutional : No Weight loss, No Fever, No Chills ENT/Mouth : No sore throat, No Rhinorrhea Eyes: No Eye Pain, No Swelling Cardiovascular : pos Chest Pain, no SOB, no Dyspnea on Exertion, No Orthopnea, No Edema, No Palpitations Respiratory : No Cough, No Sputum Gastrointestinal : no Nausea, No Vomiting, No Diarrhea, No abdominal Pain, No Hematochezia, No Melena Genitourinary : No Dysuria, No Urinary Frequency Musculoskeletal : No joint pain, No Myalgias, No Joint Swelling Skin : No Skin Lesions, No rash Neuro : No Weakness, No Numbness, No Dizziness, No Headache Psych : No Anxiety/Panic, No Depression Heme/Lymph: No Bruising, No Lymphadenopathy Endocrine : No Polyuria, No Polydipsia All other systems reviewed and are negative [facility] Past Medical History Attestation statement: The following information was validated with the patient. Medical History Adenomatous polyp of colon Afib Anxiety Asthma Auditory hallucinations Benign neoplasm breast skin Bursitis, shoulder Calcaneal spur Cervical pain (neck) Depression Disc degeneration, lumbar Dyspepsia Esophagitis GERD (gastroesophageal reflux disease) HTN (hypertension) Hyperlipidemia Hypertensive urgency Impaired glucose tolerance WENDY (obstructive sleep apnea) PAF (paroxysmal atrial fibrillation) Palpitations Xanthelasma Surgical History H/O esophagogastroduodenoscopy (09/01/15) H/O esophagogastroduodenoscopy (11/13/19) History of esophagogastroduodenoscopy (06/14/12) History of hysterectomy History of removal of cyst Hx of cholecystectomy Hx of colonoscopy Status post Margarita fundoplication (10/27/12) Family History Family History Father CVD (cardiovascular disease) HTN (hypertension) Diabetes Mother HTN (hypertension) Diabetes CVD (cardiovascular disease) Brother Pacemaker Maternal Grandmother Throat cancer Brother No problems noted. Daughter Hx LEEP (loop electrosurgical excision procedure), cervix, Social History Social History Household Members: None Alcohol intake: current Alcohol intake frequency: does not drink Smoking Status: Never smoker Advance Directives: No Advance Directives Information Provided: No Current occupational status: disabled Sexual orientation: Straight/Heterosexual Gender identity: female Physical Exam Vital Signs: Vital Signs: Last Vital Signs Temp 98.3 F 03/16/21 11:07 Pulse 59 03/16/21 12:54 Resp 16 03/16/21 12:54 BP 155/80 H 03/16/21 12:54 Pulse Ox 97 03/16/21 12:54 Body Mass Index 40.2 Appearance: Alert. Oriented X3. No acute distress. Eyes: Pupils equal, round and reactive to light. ENT: Pharynx normal. Neck: Normal inspection. Neck supple. CVS: Normal heart rate and rhythm. Pulses normal. Chest: ttp along L lateral pectoral muscle reproduces pain Respiratory: No respiratory distress. Breath sounds normal. Abdomen: Soft and nontender. Skin: Skin warm and dry. Normal skin color. Normal skin turgor. Extremities: No lower extremity edema. No calf ttp Neuro: Oriented X 3. No motor deficit. No sensory deficit. Course Course Course Narrative: no acute findings, stable for DC MDM - Chest Pain MDM Narrative Medical decision making narrative: 55 yo female with hx of GERD, HTN, PAF on xarelto comes in with L sided sharp chest pain last night she has had increasing CWP since her last COVID vaccine denies any dyspnea or nausea but notes her BP was up to 190s took her medications always compliant with her AC therapy - CWP is reproduceable but given age and risk factors will obtain labs, troponin, CXR, treat with muscle relaxers Lab Data Result diagrams: 03/16/21 12:33 03/16/21 12:33 Labs: Lab Results 03/16/21 03/16/21 03/16/21 Range/Units 12:33 12:33 12:33 WBC 6.7 (4.8-10.8) X10*3/uL RBC 4.83 (4.20-5.50) X10*6/uL Hgb 12.8 (12.0-16.0) g/dl Hct 40.4 (37-47) % MCV 83.6 (80-98) fL MCH 26.5 L (27.0-33.0) pg MCHC 31.7 (31.0-35.0) g/dl RDW 14.3 (11.0-16.0) % Plt Count 291 (160-400) X10*3/uL MPV 10.8 (9.4-12.3) fL Immature Gran % (Auto) 0.3 (0.0-0.4) % Neut % (Auto) 68.5 (45-73) % Lymph % (Auto) 23.5 (20-40) % [place] % (Auto) 5.7 (2-11) % Eos % (Auto) 1.6 (0-4) % Baso % (Auto) 0.4 (0-2) % Lymph # (Auto) 1.6 (1.2-4.9) X10*3/uL [place] # (Auto) 0.4 (0.1-1.2) X10*3/uL Eos # (Auto) 0.1 (0.0-0.4) X10*3/uL Baso # (Auto) 0.0 (0.0-0.2) X10*3/uL Abs Immat Gran (auto) 0.02 (0.00-0.03) X10*3/uL Absolute Neuts (auto) 4.6 (2.0-8.3) X10*3/uL Absolute Nucleated RBC 0.000 (0.0-0.012) X10*3/uL Nucleated RBC % (auto) 0.0 (0.0-0.2) /100WBC PT 13.4 H (10.8-13.0) SEC INR 1.1 (0.9-1.1) APTT 39.8 H (24.1-38.0) SEC Sodium 142 (135-145) mmol/L Potassium 4.2 (3.3-5.1) mmol/L Chloride 108 (96-108) mmol/L Carbon Dioxide 28 (22-29) mmol/L Anion Gap 10 L (12-20) BUN 13 (9-16) mg/dL Creatinine 0.83 (0.5-1.4) mg/dL Estim Creat Clear Calc 83.6 Estimated GFR > 60 Random Glucose 112 (60-115) mg/dL Calcium 9.0 (8.4-10.2) mg/dL Magnesium 2.1 (1.6-2.6) mg/dL Total Bilirubin 0.6 (0.0-1.0) mg/dL Direct Bilirubin 0.2 (0.0-0.5) mg/dL AST 12 (5-31) U/L ALT 15 (0-31) U/L Alkaline Phosphatase 98 (39-117) U/L Troponin I High Sens (<3.5-17.0) ng/L Total Protein 6.3 L (6.5-8.0) g/dL Albumin 3.6 (3.5-5.0) g/dL Lipase 18 (8-78) U/L COVID-19 ([facility]) (Negative) COVID-19 Clin Com 03/16/21 03/16/21 Range/Units 12:33 12:33 WBC (4.8-10.8) X10*3/uL RBC (4.20-5.50) X10*6/uL Hgb (12.0-16.0) g/dl Hct (37-47) % MCV (80-98) fL MCH (27.0-33.0) pg MCHC (31.0-35.0) g/dl RDW (11.0-16.0) % Plt Count (160-400) X10*3/uL MPV (9.4-12.3) fL Immature Gran % (Auto) (0.0-0.4) % Neut % (Auto) (45-73) % Lymph % (Auto) (20-40) % [place] % (Auto) (2-11) % Eos % (Auto) (0-4) % Baso % (Auto) (0-2) % Lymph # (Auto) (1.2-4.9) X10*3/uL [place] # (Auto) (0.1-1.2) X10*3/uL Eos # (Auto) (0.0-0.4) X10*3/uL Baso # (Auto) (0.0-0.2) X10*3/uL Abs Immat Gran (auto) (0.00-0.03) X10*3/uL Absolute Neuts (auto) (2.0-8.3) X10*3/uL Absolute Nucleated RBC (0.0-0.012) X10*3/uL Nucleated RBC % (auto) (0.0-0.2) /100WBC PT (10.8-13.0) SEC INR (0.9-1.1) APTT (24.1-38.0) SEC Sodium (135-145) mmol/L Potassium (3.3-5.1) mmol/L Chloride (96-108) mmol/L Carbon Dioxide (22-29) mmol/L Anion Gap (12-20) BUN (9-16) mg/dL Creatinine (0.5-1.4) mg/dL Estim Creat Clear Calc Estimated GFR Random Glucose (60-115) mg/dL Calcium (8.4-10.2) mg/dL Magnesium (1.6-2.6) mg/dL Total Bilirubin (0.0-1.0) mg/dL Direct Bilirubin (0.0-0.5) mg/dL AST (5-31) U/L ALT (0-31) U/L Alkaline Phosphatase (39-117) U/L Troponin I High Sens 4.0 (<3.5-17.0) ng/L Total Protein (6.5-8.0) g/dL Albumin (3.5-5.0) g/dL Lipase (8-78) U/L COVID-19 ([facility]) Negative (Negative) COVID-19 Clin Com See Note ECG Data ECG #1: Attestation: I personally reviewed and interpreted this ECG as follows: ECG interpretation date: 03/16/21 ECG interpretation time: 12:21 Interpretation: Rate: 61 Rhythm: NSR [place]: normal, LVH Normal P waves. Normal CATY. Normal QRS complex. ST T wave : normal, no EMELY qTC: normal prior studies: no acute ischemia The study has been interpreted contemporaneously by me. . Discharge Plan Discharge Clinical Impression: Atypical chest pain Patient Disposition: Home, Self-Care Instructions: Chest Pain (ED) Additional Instructions: return to ED for any worsening symptoms or concerns Prescriptions: New cyclobenzaprine 10 mg tablet 10 mg PO TID PRN (Reason: muscle spasm) Qty: 14 RF: 0 lidocaine 4 % adhesive patch,medicated 1 patch topical DAILY PRN (Reason: pain) Qty: 10 RF: 0 No Action carvedilol 25 mg tablet 25 mg PO BID 90 Days Qty: 180 RF: 1 rivaroxaban [Xarelto] 20 mg tablet 20 mg PO DAILY Qty: 90 RF: 2 atorvastatin 20 mg tablet 20 mg PO DAILY 90 Days Qty: 90 RF: 0 (DME) blood pressure kit-extra large Kit See Rx Instructions .ROUTE .MEDSUPPLY Qty: 1 RF: 0 amoxicillin-pot clavulanate [Augmentin] 875-125 mg tablet 1 tab PO BID Qty: 20 RF: 0 cholecalciferol (vitamin D3) 50 mcg (2,000 unit) capsule 50 mcg PO DAILY RF: 0 zolpidem 10 mg tablet 10 mg PO BEDTIME PRN (Reason: Sleep) RF: 0 lorazepam 0.5 mg tablet 0.5 mg PO RF: 0 polyethylene glycol 3350 17 gram powder in packet 17 g PO DAILY RF: 0 aripiprazole 5 mg tablet 5 mg PO DAILY RF: 0 buspirone 15 mg tablet 15 mg PO BID RF: 0 sertraline 100 mg tablet 100 mg PO RF: 0 lisinopril 40 mg tablet 40 mg PO DAILY RF: 0 spironolactone 25 mg tablet 25 mg PO BID RF: 0 omeprazole 20 mg capsule,delayed release(DR/EC) 20 mg PO DAILY RF: 0 amlodipine 10 mg tablet 10 mg PO DAILY RF: 0 fluticasone propionate 110 mcg/actuation HFA aerosol inhaler 1 puff inhalation BID RF: 0 tizanidine 4 mg tablet 4 mg PO TID PRN (Reason: pain) 30 Days Qty: 90 RF: 8 Referrals: Glogowski,Ganga, PHARMACIST IN CHARGE[facility] [Primary Care Provider] - 2 days (as needed)
[2021-03-16] MEDS: diazePAM 5 MG TABLET PO (12:36)
[2021-03-16 12:38] LABS: MANUAL DIFF FLAG NO
[2021-03-16 12:39] LABS: Basophils Percent Auto 0.4 % (0-2); Eosinophils Absolute Auto 0.1 X10*3/uL (0.0-0.4); Eosinophils Percent Auto 1.6 % (0-4); Hematocrit 40.4 % (37-47); Hemoglobin 12.8 g/dl (12.0-16.0); Imm Gran Abs Auto 0.02 X10*3/uL (0.00-0.03); Imm Gran Pct Auto 0.3 % (0.0-0.4); Lymphocytes Absolute Auto 1.6 X10*3/uL (1.2-4.9); Lymphocytes Percent Auto 23.5 % (20-40); Mean Corpuscular HGB Conc 31.7 g/dl (31.0-35.0); Mean Corpuscular Hemoglobin 26.5 pg (27.0-33.0); Mean Corpuscular Volume 83.6 fL (80-98); Mean Platelet Volume 10.8 fL (9.4-12.3); Monocytes Absolute Auto 0.4 X10*3/uL (0.1-1.2); Monocytes Percent Auto 5.7 % (2-11); Neutrophils Absolute Auto 4.6 X10*3/uL (2.0-8.3); Neutrophils Percent Auto 68.5 % (45-73); Platelet Count 291 X10*3/uL (160-400); Red Blood Count 4.83 X10*6/uL (4.20-5.50); Red Cell Distribution Width 14.3 % (11.0-16.0); White Blood Count 6.7 X10*3/uL (4.8-10.8)
[2021-03-16 12:54] VITALS: BP 155/80; PULSE 59; RESP 16; O2SAT 97
[2021-03-16 12:59] LABS: COVID-19 Test Negative (Negative); IDNOW Serial# 9DD0AD1C
[2021-03-16 13:02] LABS: INTERNATIONAL NORM RATIO 1.1 (0.9-1.1); Prothrombin Time 13.4 SEC (10.8-13.0)
[2021-03-16 13:09] LABS: Partial Thromboplastin Time 39.8 SEC (24.1-38.0)
[2021-03-16 13:12] LABS: Alanine Aminotransferase 15 U/L (0-31); Albumin Level 3.6 g/dL (3.5-5.0); Alkaline Phosphatase 98 U/L (39-117); Anion Gap 10 (12-20); Aspartate Amino Transferase 12 U/L (5-31); Bilirubin Direct 0.2 mg/dL (0.0-0.5); Bilirubin Total 0.6 mg/dL (0.0-1.0); Blood Urea Nitrogen 13 mg/dL (9-16); Carbon Dioxide 28 mmol/L (22-29); Chloride 108 mmol/L (96-108); Creatinine Clr Calc Pharmacy 83.6; Estimated Glomerular Filt Rate > 60; Glucose Random 112 mg/dL (60-115); Lipase 18 U/L (8-78); Magnesium 2.1 mg/dL (1.6-2.6); Potassium 4.2 mmol/L (3.3-5.1); Sodium 142 mmol/L (135-145); Total Protein 6.3 g/dL (6.5-8.0)
== END 2021-03-16 14:03 | disposition home or self-care (01) ==
PROVIDERS: Emergency Provider Emergency Medicine; PCP Nurse Practitioner Family
DX: R07.89 Other chest pain (principal); Z20.822 Contact with and (suspected) exposure to COVID-19; I10 Essential (primary) hypertension; I48.0 Paroxysmal atrial fibrillation; E78.5 Hyperlipidemia, unspecified; Z79.01 Long term (current) use of anticoagulants; Z79.02 Long term (current) use of antithrombotics/antiplatelets
CPT/HCPCS: 36415; 71045; 80048; 80076; 83690; 83735; 84484; 85025; 85610; 85730; 87635; 93005; 99283; 99284

== ENCOUNTER 2021-04-17 09:33 | Emergency (ER) | payer OTHER, SELFPAY ==
--- NOTE | ~2021-04-17 | XR_ITS ---
EXAMINATION: XR KNEE, RIGHT, LEFT HAND/WRIST CLINICAL INFORMATION: Fall COMPARISON: None TECHNIQUE: Four views of the right knee. FINDINGS: No loss of patellofemoral and medial compartment joint space. No visible acute fracture or dislocation seen. There is mild superior patellar and medial compartment periarticular spurring. No visible acute fracture, dislocation or lytic process seen. No soft tissue swelling or loose bodies. XR/XR hand wrist LT IMPRESSION: Mild degenerative changes medial and patellar femoral compartment. No visible acute fracture or dislocation seen.
--- NOTE | ~2021-04-17 | XR_ITS ---
EXAMINATION: XR KNEE, RIGHT, LEFT HAND/WRIST CLINICAL INFORMATION: Fall COMPARISON: None TECHNIQUE: Four views of the right knee. FINDINGS: No loss of patellofemoral and medial compartment joint space. No visible acute fracture or dislocation seen. There is mild superior patellar and medial compartment periarticular spurring. No visible acute fracture, dislocation or lytic process seen. No soft tissue swelling or loose bodies. XR/XR knee RT 3V IMPRESSION: Mild degenerative changes medial and patellar femoral compartment. No visible acute fracture or dislocation seen.
[2021-04-17 09:55] VITALS: BP 193/93; PULSE 76; RESP 16; TEMP 36.4; O2SAT 98; BMI 39.3
[2021-04-17] MEDS: Cyclobenzaprine HCl 5 MG TABLET PO (11:17)
--- NOTE | 2021-04-17 11:32 | ED_ITS ---
HPI - Back Pain/Injury General Chief Complaint: Back Pain/Injury Stated Complaint: FALL L SIDE AND BACK PAIN Time Seen by Provider: 04/17/21 10:12 Source: patient Mode of arrival: ambulatory History of Present Illness HPI Narrative: 56-year-old female with a past medical history of AFib, anxiety, asthma, depression, GERD, HTN, WENDY to the ED complaining of acute on chronic low back pain radiating down LLE exacerbated s/p mechanical fall down 1 step yesterday. Also reports right knee and left wrist pain after fall, denies symptoms prior to fall including headache, lightheadedness/dizziness or CP/SOB. Reports legs gave out secondary to back pain which she has been trying to see her pain management for. Denies head trauma or LOC. denies numbness, tingling, weakness, urinary incontinence/retention, abdominal pain, nausea/vomiting MD elicited complaint: back pain and fall Related Data Home Medications Medication Instructions Recorded Confirmed amlodipine 10 mg tablet 10 mg PO DAILY 08/23/20 03/16/21 aripiprazole 5 mg tablet 5 mg PO DAILY 08/23/20 03/16/21 buspirone 15 mg tablet 15 mg PO BID 08/23/20 03/16/21 fluticasone propionate 110 1 puff INHALATION BID 08/23/20 03/16/21 mcg/actuation HFA aerosol inhaler lisinopril 40 mg tablet 40 mg PO DAILY 08/23/20 03/16/21 lorazepam 0.5 mg tablet 0.5 mg PO tab 08/23/20 03/16/21 omeprazole 20 mg capsule,delayed 20 mg PO DAILY 08/23/20 03/16/21 release polyethylene glycol 3350 17 gram 17 g PO DAILY 08/23/20 03/16/21 oral powder packet sertraline 100 mg tablet 100 mg PO tab 08/23/20 03/16/21 spironolactone 25 mg tablet 25 mg PO BID 08/23/20 03/16/21 zolpidem 10 mg tablet 10 mg PO BEDTIME PRN 08/23/20 03/16/21 cholecalciferol (vitamin D3) 50 50 mcg PO DAILY 11/25/20 03/16/21 mcg (2,000 unit) capsule Previous Rx's Medication Instructions Recorded rivaroxaban 20 mg tablet 20 mg PO DAILY #90 tab 11/10/20 blood pressure kit-extra large #1 ea 01/12/21 atorvastatin 20 mg tablet 20 mg PO DAILY 90 Days #90 tab 01/15/21 tizanidine 4 mg tablet 4 mg PO TID PRN 30 Days #90 tab 03/02/21 amoxicillin 875 mg-potassium 1 tab PO BID #20 tab 03/05/21 clavulanate 125 mg tablet cyclobenzaprine 10 mg PO TID PRN #14 tab 03/16/21 lidocaine 1 patch TOPICAL DAILY PRN #10 ea 03/16/21 carvedilol 25 mg tablet 25 mg PO BID 90 Days #180 tab 03/30/21 hydrocodone-acetaminophen 1 tab PO Q8H PRN 3 Days #9 tab 04/17/21 lidocaine [Lidoderm] 1 patch TOPICAL DAILY PRN #30 ea 04/17/21 MDD remove after 12 hours Allergies Allergy/AdvReac Type Severity Reaction Status Date / Time ibuprofen [IBUPROFEN] Allergy Mild RASH, Verified 03/16/21 11:22 hives, hives Review of Systems Review of Systems: Constitutional: No Fever, No Chills Eyes: No Eye Pain, No Vision Changes Cardiovascular: No Chest Pain, No SOB Respiratory: No Cough, No Dyspnea Gastrointestinal: No Nausea, No Vomiting, No Abdominal pain Genitourinary: No Urinary Incontinence/retention Musculoskeletal: +back , +R knee and L wrist pain, No Myalgias, + Joint Swelling Skin: + abrasions, No rash Neuro: No Weakness, No Numbness, No Paresthesias, No Loss of Consciousness, No Dizziness, No Headache Yes all other systems are reviewed and are negative Neurologic: Denies Sensory deficit (Neuro) [facility] Past Medical History Attestation statement: The following information was validated with the patient. Medical History Adenomatous polyp of colon Afib Anxiety Asthma Auditory hallucinations Benign neoplasm breast skin Bursitis, shoulder Calcaneal spur Cervical pain (neck) Depression Disc degeneration, lumbar Dyspepsia Esophagitis GERD (gastroesophageal reflux disease) HTN (hypertension) Hyperlipidemia Hypertensive urgency Impaired glucose tolerance WENDY (obstructive sleep apnea) PAF (paroxysmal atrial fibrillation) Palpitations Xanthelasma Surgical History H/O esophagogastroduodenoscopy (09/01/15) H/O esophagogastroduodenoscopy (11/13/19) History of esophagogastroduodenoscopy (06/14/12) History of hysterectomy History of removal of cyst Hx of cholecystectomy Hx of colonoscopy Status post Margarita fundoplication (10/27/12) Family History Family History Father CVD (cardiovascular disease) HTN (hypertension) Diabetes Mother HTN (hypertension) Diabetes CVD (cardiovascular disease) Brother Pacemaker Maternal Grandmother Throat cancer Brother No problems noted. Daughter Hx LEEP (loop electrosurgical excision procedure), cervix, Social History Social History Household Members: None Are you a primary laboratory animal care veterinarian to a significant other at home: No Alcohol intake: current Alcohol intake frequency: does not drink Advance Directives: Yes Advance Directives on File: Yes Advance Directives Date on File: 03/16/21 Patient : No Current occupational status: disabled Sexual orientation: Straight/Heterosexual Gender identity: female Physical Exam Vital Signs: Vital Signs: Last Vital Signs Temp 97.6 F 04/17/21 09:55 Pulse 76 04/17/21 09:55 Resp 16 04/17/21 09:55 BP 193/93 H 04/17/21 09:55 Pulse Ox 98 04/17/21 09:55 Body Mass Index 39.3 Const: General: cooperative, healthy appearing and no acute distress Orientation/consciousness: patient oriented x3 Limitations: no limitations HENMT: Head: Yes normal to inspection Ears: hearing grossly normal bilaterally General nose exam: Normal external nose present Face and sinus: Yes normal facial exam Eyes: General: appearance normal, both eyes and all related structures EOM: EOMs intact bilaterally Neck: Other: No midline cervical spinous tenderness Neck: Yes normal visual inspection and Yes no meningeal signs Resp: Effort & Inspection: normal respiratory effort Cardio: Rate: regular rate Heart sounds: S1 normal heart sound present and S2 normal heart sound present Peripheral pulses: dorsalis pedis present GI: Inspection: Yes normal to inspection Palpation (GI): Soft to palpation, nontender, no guarding and not rigid : General: Yes no CVA tenderness Back/Spine/Pelvis: Other: No midline thoracic/lumbar spinous tenderness or step-off/deformity. + bilateral thoracic and lumbar MSK back tenderness Back: no CVA tenderness Skin: Other: + abrasion to right knee and bruising to right inner thigh Rashes: no rashes Neuro: Other: Ambulates with walker at baseline. No saddle anesthesia General: patient oriented x3, tone normal, moves all extremities, no meningeal signs and no focal motor deficits Motor exam (neuro): 5/5 motor strength present throughout Sensory Exam: No Sensory deficit (Neuro) Extrem: Other: Right knee with mild swelling and tenderness to palpation. Decreased flexion secondary to pain. Left wrist with tenderness to palpation at ulnar aspect. No snuffbox tenderness. No appreciable deformity. NV intact General: Yes normal to inspection Course Course Course Narrative: XR knee RT 3V IMPRESSION: Mild degenerative changes medial and patellar femoral compartment. No visible acute fracture or dislocation seen. XR hand wrist LT IMPRESSION: Mild degenerative changes medial and patellar femoral compartment. No visible acute fracture or dislocation seen. >> results discussed with patient including worrisome signs and symptoms and strict return precautions. She verbalized understanding feel safe for discharge home MDM - Back Pain/Injury MDM Narrative Medical decision making narrative: 56-year-old female with a past medical history of AFib, anxiety, asthma, depression, GERD, HTN, WENDY to the ED complaining of acute on chronic low back pain radiating down LLE exacerbated s/p mechanical fall down 1 step yesterday. Also reports right knee and left wrist pain after fall. On exam VSS, NAD, no midline spinous tenderness throughout, no red flag symptoms, ambulating at baseline. Physical exam as above. Rule out fracture. Likely MSK pain/strains and sciatica. Low concern for cauda equina/cord compression Plan: X-rays, symptomatic treatment Medical Records Attestation: I reviewed the patient's medical records. Lab Data Attestation: I reviewed the patient's lab results. Discharge Plan Discharge Clinical Impression: Abrasion Back pain Qualifiers: Back pain location: low back pain Chronicity: acute Back pain laterality: bilateral Sciatica presence: with sciatica Sciatica laterality: sciatica of left side Qualified Code(s): M54.42 - Lumbago with sciatica, left side Acute knee pain Qualifiers: Laterality: right Qualified Code(s): M25.561 - Pain in right knee Acute wrist pain Qualifiers: Laterality: left Qualified Code(s): M25.532 - Pain in left wrist Patient Disposition: Home, Self-Care Instructions: Musculoskeletal Pain (ED) Additional Instructions: Your x-rays did not show any acute fractures or dislocations Continue taking your home muscle relaxer as needed Additionally [place] is an opiate pain medication, take only when pain is severe for the next 3 days Lidoderm patches or numbing patches, apply to painful area Follow-up with your pain management doctor Your pain is likely musculoskeletal heat/ice painful areas In addition take Tylenol at home, however do not exceed 4 g of Tylenol 1 day If symptoms persist or worsen, pain becomes unbearable, you developed urinary retention or incontinence, or weakness return to the ED Prescriptions: New lidocaine [Lidoderm] 5 % adhesive patch,medicated 1 patch topical DAILY MDD remove after 12 hours PRN (Reason: pain) Qty: 30 RF: 0 hydrocodone-acetaminophen 5-325 mg tablet 1 tab PO Q8H PRN (Reason: pain, severe) 3 Days Qty: 9 RF: 0 No Action rivaroxaban [Xarelto] 20 mg tablet 20 mg PO DAILY Qty: 90 RF: 2 atorvastatin 20 mg tablet 20 mg PO DAILY 90 Days Qty: 90 RF: 0 carvedilol 25 mg tablet 25 mg PO BID 90 Days Qty: 180 RF: 1 cyclobenzaprine 10 mg tablet 10 mg PO TID PRN (Reason: muscle spasm) Qty: 14 RF: 0 lidocaine 4 % adhesive patch,medicated 1 patch topical DAILY PRN (Reason: pain) Qty: 10 RF: 0 (DME) blood pressure kit-extra large Kit See Rx Instructions .ROUTE .MEDSUPPLY Qty: 1 RF: 0 amoxicillin-pot clavulanate [Augmentin] 875-125 mg tablet 1 tab PO BID Qty: 20 RF: 0 cholecalciferol (vitamin D3) 50 mcg (2,000 unit) capsule 50 mcg PO DAILY RF: 0 zolpidem 10 mg tablet 10 mg PO BEDTIME PRN (Reason: Sleep) RF: 0 lorazepam 0.5 mg tablet 0.5 mg PO RF: 0 polyethylene glycol 3350 17 gram powder in packet 17 g PO DAILY RF: 0 aripiprazole 5 mg tablet 5 mg PO DAILY RF: 0 buspirone 15 mg tablet 15 mg PO BID RF: 0 sertraline 100 mg tablet 100 mg PO RF: 0 lisinopril 40 mg tablet 40 mg PO DAILY RF: 0 spironolactone 25 mg tablet 25 mg PO BID RF: 0 omeprazole 20 mg capsule,delayed release(DR/EC) 20 mg PO DAILY RF: 0 amlodipine 10 mg tablet 10 mg PO DAILY RF: 0 fluticasone propionate 110 mcg/actuation HFA aerosol inhaler 1 puff inhalation BID RF: 0 tizanidine 4 mg tablet 4 mg PO TID PRN (Reason: pain) 30 Days Qty: 90 RF: 8 Referrals: Alfredo Massey, HVAC/R SERVICE TECHNICIAN[facility] [Primary Care Provider] - 2 days
== END 2021-04-17 12:08 | disposition home or self-care (01) ==
PROVIDERS: Emergency Provider Emergency Medicine; PCP Nurse Practitioner Family
DX: M54.42 Lumbago with sciatica, left side (principal); S80.211A Abrasion, right knee, initial encounter; S70.11XA Contusion of right thigh, initial encounter; W10.8XXA Fall (on) (from) other stairs and steps, initial encounter; R22.41 Localized swelling, mass and lump, right lower limb; M25.561 Pain in right knee; M25.532 Pain in left wrist; I10 Essential (primary) hypertension; E78.5 Hyperlipidemia, unspecified; I48.91 Unspecified atrial fibrillation; F41.9 Anxiety disorder, unspecified; J45.909 Unspecified asthma, uncomplicated; K21.9 Gastro-esophageal reflux disease without esophagitis; F32.9 Major depressive disorder, single episode, unspecified; Z79.899 Other long term (current) drug therapy; Z79.02 Long term (current) use of antithrombotics/antiplatelets; Y99.9 Unspecified external cause status; Y93.89 Activity, other specified; Y92.018 Other place in single-family (private) house as the place of occurrence of the external cause
CPT/HCPCS: 73110; 73130; 73562; 99283

== ENCOUNTER 2021-04-28 07:32 | Outpatient (REF) | payer OTHER, SELFPAY ==
--- NOTE | ~2021-04-28 | FL_ITS ---
EXAMINATION: XR FLUOROSCOPY WITH IMAGES CLINICAL INFORMATION: Lumbosacral spondylosis and radiculopathy. COMPARISON: 01/27/2021. TECHNIQUE: Fluoroscopy performed by Dr. Mu Goldstein. Fluoroscopy time: 0.7 minutes DAP: 7.51 Gycm2 Images: 2 FINDINGS: The spinal needle again overlaps the left L5-S1 neural foramen. Contrast is again seen within the nerve sheath with transforaminal epidural extension. FL/FL guidance in treatment room IMPRESSION: Intraoperative fluoroscopy is provided as above. Please see Operative Report for full procedural details.
== END 2021-04-28 07:33 | disposition home or self-care (01) ==
LOC: HO.RADIR 07:32
PROVIDERS: Visit Provider Anesthesiology
DX: M47.27 Other spondylosis with radiculopathy, lumbosacral region (principal); M51.36 Other intervertebral disc degeneration, lumbar region; M22.2X1 Patellofemoral disorders, right knee; M22.2X2 Patellofemoral disorders, left knee
CPT/HCPCS: 64483; 64484; J3300; Q9967

== ENCOUNTER 2021-04-28 15:01 | Outpatient (REF) | payer OTHER, SELFPAY ==
--- NOTE | ~2021-04-28 | XR_ITS ---
EXAMINATION: XR CHEST CLINICAL INFORMATION: Cough COMPARISON: Previous chest x-ray most recent February 2021 TECHNIQUE: 2 views of the chest were obtained. FINDINGS: The cardiac and mediastinal contours are normal. The lungs are clear. There is no pleural effusion or pneumothorax. There are degenerative changes of the thoracic spine. There are surgical clips in the left axilla. XR/XR chest 2V IMPRESSION: Unremarkable examination.
== END 2021-04-28 15:02 | disposition home or self-care (01) ==
LOC: HO.HMGCX 15:01
PROVIDERS: PCP Nurse Practitioner Family; Visit Provider Nurse Practitioner Family
DX: R05 Cough (principal)
CPT/HCPCS: 71046

== ENCOUNTER 2021-05-08 13:49 | Emergency (ER) | payer OTHER, SELFPAY ==
--- NOTE | ~2021-05-08 | CT_ITS ---
EXAMINATION: CT ABDOMEN AND PELVIS WITH CONTRAST CLINICAL INFORMATION: Abdominal pain COMPARISON: CT scan abdomen pelvis 08/16/2017 TECHNIQUE: Multidetector volumetric images were obtained from the superior aspect of the liver through the pubic symphysis following administration 85 mL of Omnipaque 350 intravenous contrast. Sagittal and coronal reformatted images were obtained on the technologist's workstation. Oral contrast: No This CT examination was performed using dose optimization techniques as appropriate, variously including the following: *Automated exposure control *Adjustment of mA and/or kV according to patient size (this includes techniques or standardized protocols for targeted exams where dose is matched to indication/reason for exam; i.e. extremities or head) *Use of iterative reconstruction technique DLP: 897 mGy-cm FINDINGS: LUNG BASES: The visualized lung bases are unremarkable. LIVER, GALLBLADDER, AND BILIARY TREE: The liver is normal in size, shape, and attenuation. No focal hepatic lesion or biliary ductal dilatation is present. Gallbladder is absent. There is no bile duct dilatation. Extrahepatic CBD measures 6 mm in diameter. PANCREAS: Unremarkable. SPLEEN: Unremarkable. ADRENAL GLANDS: Unremarkable. KIDNEYS AND URETERS: The kidneys are normal in size, shape, and attenuation. No hydronephrosis, hydroureter, or calculi seen. No perinephric stranding. BLADDER: Unremarkable. GASTROINTESTINAL TRACT: The small and large bowel are unremarkable. The appendix is unremarkable. ABDOMINAL WALL: No significant hernia is appreciated. LYMPH NODES: Normal. VASCULAR: Unremarkable. PELVIC VISCERA: Status post hysterectomy. No pelvic mass. OSSEOUS STRUCTURES: Unremarkable. CT/CT abdomen pelvis w con IMPRESSION: No acute abnormality CT scan abdomen pelvis.
[2021-05-08 15:19] VITALS: BP 215/92; PULSE 67; RESP 18; TEMP 36.9; O2SAT 100; BMI 39.3
[2021-05-08 16:28] LABS: MANUAL DIFF FLAG NO
[2021-05-08 16:30] LABS: Basophils Percent Auto 0.3 % (0-2); Eosinophils Absolute Auto 0.1 X10*3/uL (0.0-0.4); Eosinophils Percent Auto 0.6 % (0-4); Hemoglobin 13.8 g/dl (12.0-16.0); Imm Gran Abs Auto 0.06 X10*3/uL (0.00-0.03); Imm Gran Pct Auto 0.5 % (0.0-0.4); Lymphocytes Percent Auto 17.8 % (20-40); Mean Corpuscular HGB Conc 32.1 g/dl (31.0-35.0); Mean Corpuscular Hemoglobin 26.8 pg (27.0-33.0); Mean Corpuscular Volume 83.7 fL (80-98); Mean Platelet Volume 10.6 fL (9.4-12.3); Monocytes Absolute Auto 0.7 X10*3/uL (0.1-1.2); Neutrophils Absolute Auto 8.4 X10*3/uL (2.0-8.3); Neutrophils Percent Auto 74.8 % (45-73); Platelet Count 323 X10*3/uL (160-400); Red Blood Count 5.14 X10*6/uL (4.20-5.50); Red Cell Distribution Width 14.8 % (11.0-16.0); White Blood Count 11.3 X10*3/uL (4.8-10.8)
--- NOTE | 2021-05-08 17:49 | ED.ABDPAIN ---
HPI - Abdominal Pain General Chief Complaint: Abdominal Pain Stated Complaint: abd pain Time Seen by Provider: 05/08/21 17:44 Source: patient, RN notes reviewed and old records reviewed Mode of arrival: ambulatory Limitations: no limitations History of Present Illness HPI narrative: 55-year-old female with past medical history of anxiety, depression, hypertension, sleep apnea, asthma, hyperlipidemia GERD, hiatal hernia, bursitis of shoulder, benign neoplasm of skin and breasts, chronic low back pain, chronic constipation, history of colon polyp that showed tubular adenomas here today for complaining of mid abdominal pain. Patient reports that she has postprandial abdominal discomfort. Patient reports that she is unable to eat as she feels like she gets full very easy. Patient had upper endoscopy and colonoscopy back in February of 2021 that showed gastritis with hiatal hernia, status post esophageal balloon dilatation. Colonoscopy showed moderate diverticulosis. Patient does have a history of constipation. Patient takes MiraLax and had bowel movement. Denies any melena, hematochezia, unintentional weight loss or ribbon like stools. Patient denies any fever or chills. Patient took Pepto-Bismol without relief. Related Data Home Medications Medication Instructions Recorded Confirmed amlodipine 10 mg tablet 10 mg PO DAILY 08/23/20 04/28/21 aripiprazole 5 mg tablet 5 mg PO DAILY 08/23/20 04/28/21 buspirone 15 mg tablet 15 mg PO BID 08/23/20 04/28/21 fluticasone propionate 110 1 puff INHALATION BID 08/23/20 04/28/21 mcg/actuation HFA aerosol inhaler lisinopril 40 mg tablet 40 mg PO DAILY 08/23/20 04/28/21 lorazepam 0.5 mg tablet 0.5 mg PO tab 08/23/20 04/28/21 omeprazole 20 mg capsule,delayed 20 mg PO DAILY 08/23/20 04/28/21 release polyethylene glycol 3350 17 gram 17 g PO DAILY 08/23/20 04/28/21 oral powder packet sertraline 100 mg tablet 100 mg PO tab 08/23/20 04/28/21 spironolactone 25 mg tablet 25 mg PO BID 08/23/20 04/28/21 zolpidem 10 mg tablet 10 mg PO BEDTIME PRN 08/23/20 04/28/21 Previous Rx's Medication Instructions Recorded rivaroxaban 20 mg tablet 20 mg PO DAILY #90 tab 11/10/20 blood pressure kit-extra large #1 ea 01/12/21 atorvastatin 20 mg tablet 20 mg PO DAILY 90 Days #90 tab 01/15/21 tizanidine 4 mg tablet 4 mg PO TID PRN 30 Days #90 tab 03/02/21 cyclobenzaprine 10 mg PO TID PRN #14 tab 03/16/21 lidocaine 1 patch TOPICAL DAILY PRN #10 ea 03/16/21 carvedilol 25 mg tablet 25 mg PO BID 90 Days #180 tab 03/30/21 hydrocodone-acetaminophen 1 tab PO Q8H PRN 3 Days #9 tab 04/17/21 lidocaine [Lidoderm] 1 patch TOPICAL DAILY PRN #30 ea 04/17/21 MDD remove after 12 hours azithromycin 250 mg tablet See Rx Instructions PO .COMPLEX 5 04/28/21 Days #6 tab prednisone 20 mg tablet 40 mg PO DAILY 5 Days #10 tab 04/28/21 cholecalciferol (vitamin D3) 50 50 mcg PO DAILY #90 cap 05/05/21 mcg (2,000 unit) capsule docusate sodium 100 mg PO BEDTIME #30 cap 05/08/21 Allergies Allergy/AdvReac Type Severity Reaction Status Date / Time ibuprofen [IBUPROFEN] Allergy Mild RASH, Verified 04/28/21 17:34 hives, hives Review of Systems Review of Systems Constitutional : No Weight loss, No Fever, No Chills, No Night Sweats, No Fatigue, No Malaise ENT/Mouth : No Hearing loss, No Ear Pain, No Nasal Congestion, No Sinus Pain, No Hoarseness, No sore throat, No Rhinorrhea, No Swallowing Difficulty Eyes: No Eye Pain, No Swelling, No Redness, No Foreign Body, No Discharge, No Vision Changes Cardiovascular : No Chest Pain, No SOB, No Dyspnea on Exertion, No Orthopnea, No Edema, No Palpitations Respiratory : No Cough, No Sputum, No Wheezing, No Smoke Exposure, No Dyspnea Gastrointestinal : No Nausea, No Vomiting, No Diarrhea, Constipation, abdominal Pain, No Hematochezia, No Melena Genitourinary : no irregular bleeding, No Dysuria, No Urinary Frequency, No Hematuria, No Urinary Incontinence, No Urgency, No Flank Pain, No Urinary Flow Changes, No Hesitancy Musculoskeletal : No joint pain, No Myalgias, No Joint Swelling Skin : No Skin Lesions, No rash Neuro : No Weakness, No Numbness, No Paresthesias, No Loss of Consciousness, No Dizziness, No Headache Psych : No Anxiety/Panic, No Depression, No SI/HI/AH/VH, No Social Issues, Heme/Lymph: No Bruising, No Bleeding,No Lymphadenopathy Endocrine : No Polyuria, No Polydipsia, No Temperature Intolerance Yes all other systems are reviewed and are negative Physical Exam Vital Signs: Vital Signs: Last Vital Signs Temp 98.5 F 05/08/21 21:41 Pulse 67 05/08/21 21:41 Resp 18 05/08/21 21:41 BP 149/71 H 05/08/21 21:41 Pulse Ox 98 05/08/21 21:41 Body Mass Index 39.3 Const: General: healthy appearing, no acute distress and well developed Nutritional Appearance: well nourished Orientation/consciousness: patient oriented x3 Neck: Neck: Yes normal visual inspection, Yes full ROM and Yes trachea midline Thyroid: Thyroid normal Resp: Auscultation: clear to auscultation bilaterally Cardio: Rate: regular rate Rhythm: regular rhythm GI: Inspection: Yes normal to inspection and No distended Palpation (GI): No hepatosplenomegaly present Auscultation: normal bowel sounds Skin: General skin exam: elasticity normal, turgor normal and dry skin Neuro: General: patient oriented x3 Course Course Course Narrative: 56-year-old female with complex medical history. Patient does have history of chronic constipation. Recent colonoscopy showed moderate diverticulosis and sigmoid. Patient is taking MiraLax however she is not taking it faithfully every day. She reports to have a postprandial fullness and bloating. Unable to eat reports to have mid upper abdominal discomfort. I will medicate her for pain give her Zofran for nausea. If her kidney functions are stable I will order CT scan to rule out obstruction, colitis, diverticulitis. Reevaluation(s) Reevaluation #1: Patient reports to be feeling better after medicating with morphine. Awaiting for kidney functions so we can do CT scan. Reevaluation #2: Normal kidney functions. Patient continues to be feeling well. CT of abdomen ordered. Reevaluation #3: CT scan negative for any abnormalities. All results discussed with patient. Patient will go home to follow-up with her clinical esthetician. She will continue take her MiraLax every day I will add stool softener. Patient is agreeable to plan of care and verbalizes understanding of instructions. She was given the opportunity to ask questions all questions answered. MDM - Abdominal Pain Lab Data Result diagrams: 05/08/21 16:20 05/08/21 18:47 Labs: Lab Results 05/08/21 05/08/21 Range/Units 16:20 18:47 WBC 11.3 H (4.8-10.8) X10*3/uL RBC 5.14 (4.20-5.50) X10*6/uL Hgb 13.8 (12.0-16.0) g/dl Hct 43.0 (37-47) % MCV 83.7 (80-98) fL MCH 26.8 L (27.0-33.0) pg MCHC 32.1 (31.0-35.0) g/dl RDW 14.8 (11.0-16.0) % Plt Count 323 (160-400) X10*3/uL MPV 10.6 (9.4-12.3) fL Immature Gran % (Auto) 0.5 H (0.0-0.4) % Neut % (Auto) 74.8 H (45-73) % Lymph % (Auto) 17.8 L (20-40) % [place] % (Auto) 6.0 (2-11) % Eos % (Auto) 0.6 (0-4) % Baso % (Auto) 0.3 (0-2) % Lymph # (Auto) 2.0 (1.2-4.9) X10*3/uL [place] # (Auto) 0.7 (0.1-1.2) X10*3/uL Eos # (Auto) 0.1 (0.0-0.4) X10*3/uL Baso # (Auto) 0.0 (0.0-0.2) X10*3/uL Abs Immat Gran (auto) 0.06 H (0.00-0.03) X10*3/uL Absolute Neuts (auto) 8.4 H (2.0-8.3) X10*3/uL Absolute Nucleated RBC 0.000 (0.0-0.012) X10*3/uL Nucleated RBC % (auto) 0.0 (0.0-0.2) /100WBC Sodium 143 (135-145) mmol/L Potassium 4.6 (3.3-5.1) mmol/L Chloride 109 H (96-108) mmol/L Carbon Dioxide 27 (22-29) mmol/L Anion Gap 12 (12-20) BUN 18 H (9-16) mg/dL Creatinine 0.95 (0.5-1.4) mg/dL Estim Creat Clear Calc 71.2 Estimated GFR > 60 Random Glucose 102 (60-115) mg/dL Calcium 9.2 (8.4-10.2) mg/dL Total Bilirubin 0.7 (0.0-1.0) mg/dL AST 12 (5-31) U/L ALT 15 (0-31) U/L Alkaline Phosphatase 100 (39-117) U/L Total Protein 6.4 L (6.5-8.0) g/dL Albumin 3.7 (3.5-5.0) g/dL Lipase 17 (8-78) U/L Imaging Data CT scan - abdomen: Radiologist's impression: FINDINGS: LUNG BASES: The visualized lung bases are unremarkable. LIVER, GALLBLADDER, AND BILIARY TREE: The liver is normal in size, shape, and attenuation. No focal hepatic lesion or biliary ductal dilatation is present. Gallbladder is absent. There is no bile duct dilatation. Extrahepatic CBD measures 6 mm in diameter. PANCREAS: Unremarkable. SPLEEN: Unremarkable. ADRENAL GLANDS: Unremarkable. KIDNEYS AND URETERS: The kidneys are normal in size, shape, and attenuation. No hydronephrosis, hydroureter, or calculi seen. No perinephric stranding. BLADDER: Unremarkable. GASTROINTESTINAL TRACT: The small and large bowel are unremarkable. The appendix is unremarkable. ABDOMINAL WALL: No significant hernia is appreciated. LYMPH NODES: Normal. VASCULAR: Unremarkable. PELVIC VISCERA: Status post hysterectomy. No pelvic mass. OSSEOUS STRUCTURES: Unremarkable. CT/CT abdomen pelvis w con IMPRESSION: No acute abnormality CT scan abdomen pelvis. Discharge Plan Discharge Clinical Impression: Chronic constipation, Abdominal pain Patient Disposition: Home, Self-Care Instructions: Constipation (ED), Abdominal Pain (ED) Additional Instructions: You were seen here today for mid upper abdominal discomfort. All lab work was negative for any abnormal findings. CT scan of your abdomen showed no abnormalities. You have a history of chronic constipation, please take MiraLax every day. I will add stool softeners a can take it every evening. Please follow-up with your clinical esthetician on Tuesday as well as your PCP for further workup. You may return to emergency department if your symptoms will get worse or if you experience any other concerning symptoms. Prescriptions: New docusate sodium 100 mg capsule 100 mg PO BEDTIME Qty: 30 RF: 0 No Action rivaroxaban [Xarelto] 20 mg tablet 20 mg PO DAILY Qty: 90 RF: 2 atorvastatin 20 mg tablet 20 mg PO DAILY 90 Days Qty: 90 RF: 0 carvedilol 25 mg tablet 25 mg PO BID 90 Days Qty: 180 RF: 1 cholecalciferol (vitamin D3) 50 mcg (2,000 unit) capsule 50 mcg PO DAILY Qty: 90 RF: 1 cyclobenzaprine 10 mg tablet 10 mg PO TID PRN (Reason: muscle spasm) Qty: 14 RF: 0 lidocaine 4 % adhesive patch,medicated 1 patch topical DAILY PRN (Reason: pain) Qty: 10 RF: 0 lidocaine [Lidoderm] 5 % adhesive patch,medicated 1 patch topical DAILY MDD remove after 12 hours PRN (Reason: pain) Qty: 30 RF: 0 hydrocodone-acetaminophen 5-325 mg tablet 1 tab PO Q8H PRN (Reason: pain, severe) 3 Days Qty: 9 RF: 0 (DME) blood pressure kit-extra large Kit See Rx Instructions .ROUTE .MEDSUPPLY Qty: 1 RF: 0 azithromycin 250 mg tablet See Rx Instructions PO .COMPLEX 5 Days Qty: 6 RF: 0 prednisone 20 mg tablet 40 mg PO DAILY 5 Days Qty: 10 RF: 0 zolpidem 10 mg tablet 10 mg PO BEDTIME PRN (Reason: Sleep) RF: 0 lorazepam 0.5 mg tablet 0.5 mg PO RF: 0 polyethylene glycol 3350 17 gram powder in packet 17 g PO DAILY RF: 0 aripiprazole 5 mg tablet 5 mg PO DAILY RF: 0 buspirone 15 mg tablet 15 mg PO BID RF: 0 sertraline 100 mg tablet 100 mg PO RF: 0 lisinopril 40 mg tablet 40 mg PO DAILY RF: 0 spironolactone 25 mg tablet 25 mg PO BID RF: 0 omeprazole 20 mg capsule,delayed release(DR/EC) 20 mg PO DAILY RF: 0 amlodipine 10 mg tablet 10 mg PO DAILY RF: 0 fluticasone propionate 110 mcg/actuation HFA aerosol inhaler 1 puff inhalation BID RF: 0 tizanidine 4 mg tablet 4 mg PO TID PRN (Reason: pain) 30 Days Qty: 90 RF: 8 Interventions: ED Discharge Assessment Last Done: 05/08/21 21:44 Discharge Date/Time: 05/08/21 21:45 [facility] Past Medical History Medical History Adenomatous polyp of colon Afib Anxiety Asthma Auditory hallucinations Benign neoplasm breast skin Bursitis, shoulder Calcaneal spur Cervical pain (neck) Depression Disc degeneration, lumbar Dyspepsia Esophagitis GERD (gastroesophageal reflux disease) HTN (hypertension) Hyperlipidemia Hypertensive urgency Impaired glucose tolerance WENDY (obstructive sleep apnea) PAF (paroxysmal atrial fibrillation) Palpitations Xanthelasma Surgical History H/O esophagogastroduodenoscopy (09/01/15) H/O esophagogastroduodenoscopy (11/13/19) History of esophagogastroduodenoscopy (06/14/12) History of hysterectomy History of removal of cyst Hx of cholecystectomy Hx of colonoscopy Status post Margarita fundoplication (10/27/12) Family History Family History Father CVD (cardiovascular disease) HTN (hypertension) Diabetes Mother HTN (hypertension) Diabetes CVD (cardiovascular disease) Brother Pacemaker Maternal Grandmother Throat cancer Brother No problems noted. Daughter Hx LEEP (loop electrosurgical excision procedure), cervix, Social History Social History Household Members: None Are you a primary reproductive healthcare assistant to a significant other at home: No Alcohol intake: current Alcohol intake frequency: does not drink Advance Directives: Yes Advance Directives on File: Yes Advance Directives Date on File: 03/16/21 Patient : No Current occupational status: disabled Sexual orientation: Straight/Heterosexual Gender identity: female
[2021-05-08 18:41] VITALS: BP 177/69; PULSE 65; RESP 18; TEMP 36.8; O2SAT 99
[2021-05-08 19:00] VITALS: BP 177/69; PULSE 69; RESP 16; O2SAT 97
[2021-05-08 19:16] VITALS: RESP 18
[2021-05-08] MEDS: Morphine Sulfate 2 MG/ML CARTRIDGE IVPUSH (19:16)
[2021-05-08] MEDS: ondansetron HCL 4 MG/2 ML VIAL IVPUSH (19:16)
[2021-05-08] MEDS: 0.9 % Sodium Chloride 1,000 ML 999 ML IV (19:16)
[2021-05-08 19:41] LABS: Alanine Aminotransferase 15 U/L (0-31); Albumin Level 3.7 g/dL (3.5-5.0); Alkaline Phosphatase 100 U/L (39-117); Anion Gap 12 (12-20); Aspartate Amino Transferase 12 U/L (5-31); Bilirubin Total 0.7 mg/dL (0.0-1.0); Blood Urea Nitrogen 18 mg/dL (9-16); Calcium 9.2 mg/dL (8.4-10.2); Carbon Dioxide 27 mmol/L (22-29); Chloride 109 mmol/L (96-108); Creatinine Clr Calc Pharmacy 71.2; Estimated Glomerular Filt Rate > 60; Glucose Random 102 mg/dL (60-115); Lipase 17 U/L (8-78); Potassium 4.6 mmol/L (3.3-5.1); Sodium 143 mmol/L (135-145); Total Protein 6.4 g/dL (6.5-8.0)
[2021-05-08] MEDS: iohexoL 350 MG/ML 100 ML INFUS..BTL 85 ML IV (20:32)
--- NOTE | 2021-05-08 21:13 | PC.NURSE ---
IV REMOVED INTACT. PT AWAITING FOR DISCHARGE INSTRUCTIONS.
[2021-05-08 21:41] VITALS: BP 149/71; PULSE 67; RESP 18; TEMP 36.9; O2SAT 98
== END 2021-05-08 21:45 | disposition home or self-care (01) ==
PROVIDERS: Nurse Practitioner Family; Emergency Provider Internal Medicine; PCP Nurse Practitioner Family
DX: K59.09 Other constipation (principal); I10 Essential (primary) hypertension; I48.0 Paroxysmal atrial fibrillation; J45.909 Unspecified asthma, uncomplicated; Z79.01 Long term (current) use of anticoagulants; Z79.899 Other long term (current) drug therapy; Z86.010 Personal history of colon polyps
CPT/HCPCS: 36415; 74177; 80053; 83690; 85025; 96361; 96374; 96375; 99283; 99284; J2270; J2405; Q9967

== ENCOUNTER → 2021-05-26 09:45 | Outpatient (BNVA) | payer OTHER, SELFPAY | PROVIDERS: PCP Nurse Practitioner Family; Referring Provider Nurse Practitioner Family; Visit Provider Internal Medicine Cardiovascular Disease | DX: R00.2 Palpitations (principal); I48.0 Paroxysmal atrial fibrillation; I10 Essential (primary) hypertension | CPT/HCPCS: 99212 ==

== ENCOUNTER 2021-05-29 09:39 | Outpatient (REF) | payer OTHER, SELFPAY ==
[2021-05-29 11:26] LABS: MANUAL DIFF FLAG NO
[2021-05-29 11:30] LABS: Glucose Urine UA NEG (NEG); Leukocyte Esterase Urine NEG (NEG); Nitrite Urine NEG (NEG); Specific Gravity - Urine 1.015 (1.005-1.025); Urine Blood NEG (NEG); Urine Ketones NEG (NEG); Urine Protein NEG (NEG-TRACE)
[2021-05-29 11:32] LABS: Appearance Urine CLEAR; Color Urine YELLOW
[2021-05-29 11:36] LABS: Basophils Percent Auto 0.5 % (0-2); Eosinophils Absolute Auto 0.1 X10*3/uL (0.0-0.4); Eosinophils Percent Auto 2.2 % (0-4); Hematocrit 42.5 % (37-47); Hemoglobin 13.7 g/dl (12.0-16.0); Imm Gran Abs Auto 0.02 X10*3/uL (0.00-0.03); Imm Gran Pct Auto 0.4 % (0.0-0.4); Lymphocytes Absolute Auto 1.4 X10*3/uL (1.2-4.9); Lymphocytes Percent Auto 24.6 % (20-40); Mean Corpuscular HGB Conc 32.2 g/dl (31.0-35.0); Mean Corpuscular Hemoglobin 27.1 pg (27.0-33.0); Mean Corpuscular Volume 84.2 fL (80-98); Mean Platelet Volume 12.5 fL (9.4-12.3); Monocytes Absolute Auto 0.3 X10*3/uL (0.1-1.2); Monocytes Percent Auto 5.2 % (2-11); Neutrophils Absolute Auto 3.7 X10*3/uL (2.0-8.3); Neutrophils Percent Auto 67.1 % (45-73); Platelet Count 197 X10*3/uL (160-400); Red Blood Count 5.05 X10*6/uL (4.20-5.50); Red Cell Distribution Width 14.6 % (11.0-16.0); White Blood Count 5.6 X10*3/uL (4.8-10.8)
[2021-05-29 11:46] LABS: Estimated Average Glucose 128 mg/dL; Hemoglobin A1c % 6.1 %
[2021-05-29 11:52] LABS: Alanine Aminotransferase 19 U/L (0-31); Albumin Level 3.8 g/dL (3.5-5.0); Alkaline Phosphatase 97 U/L (39-117); Anion Gap 13 (12-20); Aspartate Amino Transferase 14 U/L (5-31); Bilirubin Total 0.5 mg/dL (0.0-1.0); Blood Urea Nitrogen 14 mg/dL (9-16); Calcium 8.9 mg/dL (8.4-10.2); Carbon Dioxide 24 mmol/L (22-29); Chloride 109 mmol/L (96-108); Cholesterol 187 mg/dL; Estimated Glomerular Filt Rate > 60; Glucose Fasting 106 mg/dL (60-99); HDL Cholesterol 62 mg/dL; Iron 54 mcg/dL (30-160); LDL Cholesterol Calculated 115 mg/dl; Percent Iron Saturation 16 % (15-50); Potassium 4.1 mmol/L (3.3-5.1); Sodium 142 mmol/L (135-145); Total Iron Binding Capacity 347 mcg/dL (228-428); Total Protein 6.5 g/dL (6.5-8.0); Triglycerides 50 mg/dL; Unsaturated Iron Binding 293 ug/dL
[2021-05-29 12:42] LABS: Vitamin D 25-OH Total 24.4 ng/mL (>30)
[2021-05-29 13:19] LABS: Ferritin 56 ng/mL (10-250)
[2021-05-30 09:01] LABS: Lyme Abs Screen <0.90 index
== END 2021-05-29 09:40 | disposition home or self-care (01) ==
LOC: HO.HMGCLDS 09:39
PROVIDERS: Internal Medicine Gastroenterology; PCP Nurse Practitioner Family; Visit Provider Nurse Practitioner Family
DX: Z00.00 Encounter for general adult medical examination without abnormal findings (principal); R53.83 Other fatigue; R10.33 Periumbilical pain; R73.01 Impaired fasting glucose; Z78.0 Asymptomatic menopausal state
CPT/HCPCS: 36415; 80053; 80061; 81003; 82306; 82728; 83036; 83540; 84443; 85025; 86617; 86618

== ENCOUNTER → 2021-06-04 10:03 | Outpatient (REF) | payer OTHER, SELFPAY ==
--- NOTE | 2021-06-04 12:15 | ECG_ITS ---
Hook-up date: 2021-06-04 10:07:00 Duration: 25:24:00 Test Indications: PALPITATIONS Medications: [id number] QRS complexes 1076 Ventricular ectopics which represent <1 % of total QRS comp. 151 Supraventricular ectopics which represent <1 % of total QRS comp. * Paced QRS complexs which represent % of total QRS comp. VENTRICULAR ECTOPY 1062 Isolated 3 Bigeminal Cycles 7 Couplets 0 Runs 0 Beats in Runs * Beats LONGEST at * BPM at :: -- * Beats FASTEST at * BPM at :: -- SUPRAVENTRICULAR ECTOPY 128 Isolated 2 Couplets 4 Runs 19 Beats in Runs 7 Beats LONGEST at 135 BPM at 03:00:09 2021-06-05 6 Beats FASTEST at 181 BPM at 23:44:05 2021-06-04 HEART RATES 54 MIN at 05:48:10 2021-06-05 81 AVG 124 MAX at 15:41:18 2021-06-04 LONGEST RR 1.2800 secs at 07:40:16 2021-06-05 S-T LEVELS Channel 1 - 128 mm at 10:07:00 2021-06-04 - 128 mm at 10:07:00 2021-06-04 Channel 2 - 128 mm at 10:07:00 2021-06-04 - 128 mm at 10:07:00 2021-06-04 Channel 3 - 128 mm at 02:92:61 -- - 128 mm at 02:92:61 Underlying rhythm is sinus; Average ventricular rate 81/min; range 54-124/min; Occasional Premature ventricular complexes ; (<1%); mostly isolated, few couplets; Rare Premature atrial complexes : Patient diary not available for review. Referred By: Pritesh Lebron Overread By: MARK MANSFIELD
== END ==
LOC: HO.CARD 10:03
PROVIDERS: PCP Nurse Practitioner Family; Visit Provider Internal Medicine Cardiovascular Disease
DX: R00.2 Palpitations (principal)
CPT/HCPCS: 93226

== ENCOUNTER 2021-06-09 09:16 | Outpatient (REF) | payer OTHER, SELFPAY ==
--- NOTE | ~2021-06-09 | XR_ITS ---
EXAMINATION: XR HIP, RIGHT XR HIP, LEFT CLINICAL INFORMATION: Pain. COMPARISON: None. TECHNIQUE: AP and frog-leg lateral views of the right and left hip. FINDINGS: Right Hip: No acute fracture or dislocation. Tiny lateral acetabular subchondral cysts. No significant marginal osteophytes. No abnormal soft tissue calcification. Left Hip: No acute fracture or dislocation. Tiny lateral acetabular marginal osteophytes. No osseous erosion. Phleboliths within the pelvis. XR/XR hip LT min 2V IMPRESSION: RIGHT HIP: Minimal arthrosis. LEFT HIP: Minimal arthrosis.
--- NOTE | ~2021-06-09 | XR_ITS ---
EXAMINATION: XR HIP, RIGHT XR HIP, LEFT CLINICAL INFORMATION: Pain. COMPARISON: None. TECHNIQUE: AP and frog-leg lateral views of the right and left hip. FINDINGS: Right Hip: No acute fracture or dislocation. Tiny lateral acetabular subchondral cysts. No significant marginal osteophytes. No abnormal soft tissue calcification. Left Hip: No acute fracture or dislocation. Tiny lateral acetabular marginal osteophytes. No osseous erosion. Phleboliths within the pelvis. XR/XR hip RT min 2V IMPRESSION: RIGHT HIP: Minimal arthrosis. LEFT HIP: Minimal arthrosis.
== END 2021-06-09 09:17 | disposition home or self-care (01) ==
LOC: HO.XRAY 09:16
PROVIDERS: PCP Nurse Practitioner Family; Visit Provider Nurse Practitioner Family
DX: M25.551 Pain in right hip (principal); M25.552 Pain in left hip; M47.27 Other spondylosis with radiculopathy, lumbosacral region; M22.2X1 Patellofemoral disorders, right knee; M51.36 Other intervertebral disc degeneration, lumbar region; Z79.899 Other long term (current) drug therapy
CPT/HCPCS: 73502; 99212

== ENCOUNTER → 2021-06-23 13:38 | Outpatient (BNVA) | payer OTHER, SELFPAY | PROVIDERS: PCP Nurse Practitioner Family; Visit Provider Nurse Practitioner Family | DX: M47.27 Other spondylosis with radiculopathy, lumbosacral region (principal); M51.36 Other intervertebral disc degeneration, lumbar region; M53.3 Sacrococcygeal disorders, not elsewhere classified | CPT/HCPCS: 99212 ==

== ENCOUNTER 2021-07-13 15:41 | Emergency (ER) | payer OTHER, SELFPAY ==
--- NOTE | ~2021-07-13 | XR_ITS ---
EXAMINATION: XR ANKLE, LEFT CLINICAL INFORMATION: Fall, pain COMPARISON: None TECHNIQUE: AP, lateral, and mortise views of the left ankle. FINDINGS: The bones and soft tissues are normal. No fracture. Alignment is anatomic. Joint spaces are maintained. No joint effusion. There is calcaneal enthesopathy. XR/XR ankle LT 2V IMPRESSION: No acute traumatic findings.
--- NOTE | ~2021-07-13 | XR_ITS ---
EXAMINATION: XR BILATERAL HIPS WITH AP PELVIS CLINICAL INFORMATION: Fall, bilateral hip pain COMPARISON: None TECHNIQUE: AP and frog-leg lateral views of each hip and an AP view of the pelvis. FINDINGS: Mild bilateral hip joint space narrowing with subchondral sclerosis. No fracture. Sacroiliac and hip joints are normal. Pubic symphysis is normal. No abnormal soft tissue calcifications. XR/XR hip BI w PEL1V IMPRESSION: Mild degenerative disease of bilateral hips.
--- NOTE | ~2021-07-13 | XR_ITS ---
EXAMINATION: XR KNEE, LEFT CLINICAL INFORMATION: Fall, pain COMPARISON: None TECHNIQUE: Two views of the left knee. FINDINGS: Bones and soft tissues are normal. No fracture or joint effusion. Alignment is anatomic. Joint spaces are well maintained. No abnormal soft tissue calcification. XR/XR knee LT 2V IMPRESSION: Normal left knee.
[2021-07-13 18:44] VITALS: BP 177/91; PULSE 85; RESP 18; TEMP 36.7; O2SAT 99; BMI 40.2
--- NOTE | 2021-07-13 18:44 | ED.FALL ---
HPI - Fall General Chief Complaint: Fall <Tracie Morrow PA-C - Last Filed: 07/13/21 18:50> Stated Complaint: fall <INDIO Malik Last Filed: 07/13/21 18:50> Time Seen by Provider: 07/13/21 18:44 <INDIO Malik Last Filed: 07/13/21 18:50> Source: patient <INDIO Malik Last Filed: 07/13/21 18:50> Mode of arrival: ambulatory <INDIO Malik Last Filed: 07/13/21 18:50> Limitations: no limitations <INDIO Malik Last Filed: 07/13/21 18:50> History of Present Illness HPI Narrative: Pt is a 56YO F with past med hx of afib on xaralto, HTN, HLD, GERD, SI pain, lumbar disc degeneration and Lynch's esophagus c/o fall at 7pm last evening at while leaving her home. She states she felt her right knee give out , did not hit head, denies LOC. Uses a cane at baseline. States has 8/10 pain right hip, right knee, left knee and left leg. <INDIO Malik Last Filed: 07/13/21 18:50> Related Data Home Medications: Home Medications Medication Instructions Recorded Confirmed amlodipine 10 mg tablet 10 mg PO DAILY 08/23/20 06/23/21 aripiprazole 5 mg tablet 5 mg PO DAILY 08/23/20 06/23/21 buspirone 15 mg tablet 15 mg PO BID 08/23/20 06/23/21 fluticasone propionate 110 1 puff INHALATION BID 08/23/20 06/23/21 mcg/actuation HFA aerosol inhaler lisinopril 40 mg tablet 40 mg PO DAILY 08/23/20 06/23/21 lorazepam 0.5 mg tablet 0.5 mg PO tab 08/23/20 06/23/21 omeprazole 20 mg capsule,delayed 20 mg PO DAILY 08/23/20 06/23/21 release spironolactone 25 mg tablet 25 mg PO BID 08/23/20 06/23/21 zolpidem 10 mg tablet 10 mg PO BEDTIME PRN 08/23/20 06/23/21 sertraline 100 mg tablet 100 mg PO DAILY tab 05/26/21 06/23/21 Previous Rx's Medication Instructions Recorded rivaroxaban 20 mg tablet (Xarelto) 20 mg PO DAILY #90 tab 11/10/20 blood pressure kit-extra large #1 ea 01/12/21 atorvastatin 20 mg tablet 20 mg PO DAILY 90 Days #90 tab 01/15/21 carvedilol 25 mg tablet 25 mg PO BID 90 Days #180 tab 03/30/21 cholecalciferol (vitamin D3) 50 50 mcg PO DAILY #90 cap 05/05/21 mcg (2,000 unit) capsule docusate sodium 100 mg capsule 100 mg PO BEDTIME #30 cap 05/08/21 cyclobenzaprine 10 mg tablet 10 mg PO TID PRN #21 tab 06/09/21 hydrochlorothiazide 12.5 mg tablet 12.5 mg PO DAILY 10 Days #10 tab 06/15/21 methocarbamol 500 mg tablet 500 mg PO TID #90 tab 06/23/21 cyclobenzaprine 5 mg tablet 5 mg PO TID PRN #10 tab 07/13/21 oxycodone-acetaminophen 5 mg-325 1 tab PO BID PRN #7 tab 07/13/21 mg tablet (Percocet) <Tracie Morrow PA-C - Last Filed: 07/13/21 18:50> Allergies/Adverse Reactions: Allergies Allergy/AdvReac Type Severity Reaction Status Date / Time ibuprofen [IBUPROFEN] Allergy Mild RASH, Verified 07/13/21 18:52 hives, hives <INDIO Malik Last Filed: 07/13/21 18:50> Review of Systems Review of Systems: Constitutional : No Weight loss, No Fever, No Chills, No Night Sweats, No Fatigue, No Malaise ENT/Mouth : No Hearing loss, No Ear Pain, No Nasal Congestion, No Sinus Pain, No Hoarseness, No sore throat, No Rhinorrhea, No Swallowing Difficulty Eyes: No Eye Pain, No Swelling, No Redness, No Foreign Body, No Discharge, No Vision Changes Cardiovascular : No Chest Pain, No SOB, No Dyspnea on Exertion, No Orthopnea, No Edema, No Palpitations Respiratory : No Cough, No Sputum, No Wheezing, No Smoke Exposure, No Dyspnea Gastrointestinal : No Nausea, No Vomiting, No Diarrhea, No Constipation, No abdominal Pain, No Hematochezia, No Melena Genitourinary : no irregular bleeding, No Dysuria, No Urinary Frequency, No Hematuria, No Urinary Incontinence, No Urgency, No Flank Pain, No Urinary Flow Changes, No Hesitancy Musculoskeletal : Complaining of bilateral hip pain, left knee and left ankle pain, No Myalgias, No Joint Swelling Skin : No Skin Lesions, No rash Neuro : No Weakness, No Numbness, No Paresthesias, No Loss of Consciousness, No Dizziness, No Headache Psych : No Anxiety/Panic, No Depression, No SI/HI/AH/VH, No Social Issues, Heme/Lymph: No Bruising, No Bleeding,No Lymphadenopathy Endocrine : No Polyuria, No Polydipsia, No Temperature Intolerance <María Rodriguez MD - Last Filed: 07/13/21 22:47> FOR[facility]LY [facility], [facility] Past Medical History Medical History: Medical History Adenomatous polyp of colon Afib Anxiety Asthma Auditory hallucinations Benign neoplasm breast skin Bursitis, shoulder Calcaneal spur Cervical pain (neck) Depression Disc degeneration, lumbar Dyspepsia Esophagitis GERD (gastroesophageal reflux disease) HTN (hypertension) Hyperlipidemia Hypertensive urgency Impaired glucose tolerance WENDY (obstructive sleep apnea) PAF (paroxysmal atrial fibrillation) Palpitations Swelling of both lower extremities Xanthelasma <Tracie Morrow PA-C - Last Filed: 07/13/21 18:50> Surgical History: Surgical History H/O esophagogastroduodenoscopy (09/01/15) H/O esophagogastroduodenoscopy (11/13/19) History of esophagogastroduodenoscopy (06/14/12) History of hysterectomy History of removal of cyst Hx of cholecystectomy Hx of colonoscopy Status post Margarita fundoplication (10/27/12) <Tracie Morrow PA-C - Last Filed: 07/13/21 18:50> Family History Family History: Family History Father CVD (cardiovascular disease) HTN (hypertension) Diabetes Mother HTN (hypertension) Diabetes CVD (cardiovascular disease) Brother Pacemaker Maternal Grandmother Throat cancer Brother No problems noted. Daughter Hx LEEP (loop electrosurgical excision procedure), cervix, Other Mental health disorder Substance use disorder <Tracie Morrow PA-C - Last Filed: 07/13/21 18:50> Social History Social History: Social History Household Members: None Housing: House Are you a primary care transition coordinator to a significant other at home: No Alcohol intake: current Alcohol intake frequency: does not drink Patient Tobacco Use Status: Never used Tobacco Advance Directives: Yes Advance Directives on File: Yes Advance Directives Date on File: 03/16/21 Current occupational status: disabled Sexual orientation: Straight/Heterosexual Gender identity: Female <Tracie Morrow PA-C - Last Filed: 07/13/21 18:50> Physical Exam Vital Signs: Vital Signs: Last Vital Signs Temp 98.0 F 07/13/21 18:44 Pulse 85 07/13/21 18:44 Resp 18 07/13/21 18:44 BP 177/91 H 07/13/21 18:44 Pulse Ox 99 07/13/21 18:44 Body Mass Index 40.2 <Tracie Morrow PA-C - Last Filed: 07/13/21 18:50> Vital Signs: Last Vital Signs Temp 98.0 F 07/13/21 18:44 Pulse 85 07/13/21 18:44 Resp 18 07/13/21 18:44 BP 177/91 H 07/13/21 18:44 Pulse Ox 99 07/13/21 18:44 Body Mass Index 40.2 <María Rodriguez MD - Last Filed: 07/13/21 22:47> Const: Other: Appearance: Alert. Oriented X3. No acute distress. Eyes: Pupils equal, round and reactive to light. ENT: Pharynx normal. Neck: Normal inspection. Neck supple. No lymph nodes noted. No crepitus CVS: Normal heart rate and rhythm. Pulses normal. Normal S1 and S2 Respiratory: No respiratory distress. Breath sounds normal. No Wheezing. No rales Abdomen: Soft and nontender. No rigidity. No distention. good BS x4 Skin: Skin warm and dry. Normal skin color. Normal skin turgor. Extremities: Chronic +2 pitting edema, bilateral hip pain with hip flexion and extension, mild ecchymosis on the lateral aspect of the left thigh, patient able to flex and extend knee, pain to ankle flexion and extension. No Lacerations. No Rash Neuro: Oriented X 3. No motor deficit. No sensory deficit. Moving all extermities. No slurred speech. <María Rodriguez MD - Last Filed: 07/13/21 22:47> Course Course Course Narrative: Rapid medical exam for 56yo f with fall last evening after right knee giving out , on xaralto, no loc, no hitting head. Generalized pain, able to ambulate. Will have ED provider order further workup as necessary after PE. <Tracie Morrow PA-C - Last Filed: 07/13/21 18:50> Rapid medical exam for 56yo f with fall last evening after right knee giving out , on xaralto, no loc, no hitting head. Generalized pain, able to ambulate. Will have ED provider order further workup as necessary after PE. X-rays pending. One dose of Tylenol offered to the patient, patient will be driving herself back home. X-rays negative, patient having contusions. Patient instructed to follow-up with her primary care physician. <María Rodriguez MD - Last Filed: 07/13/21 22:47> MDM - Fall Imaging Data Knee x-ray: Radiologist's impression: Bones and soft tissues are normal. No fracture or joint effusion. Alignment is anatomic. Joint spaces are well maintained. No abnormal soft tissue calcification.? XR/XR knee LT 2V IMPRESSION: Normal left knee. <María Rodriguez MD - Last Filed: 07/13/21 22:47> Hip and pelvis x-ray: Radiologist's impression: Mild bilateral hip joint space narrowing with subchondral sclerosis. No fracture. Sacroiliac and hip joints are normal. Pubic symphysis is normal. No abnormal soft tissue calcifications. XR/XR hip BI w PEL1V IMPRESSION: Mild degenerative disease of bilateral hips. <María Rodriguez MD - Last Filed: 07/13/21 22:47> Ankle x-ray: Radiologist's impression: INDINGS: The bones and soft tissues are normal. No fracture. Alignment is anatomic. Joint spaces are maintained. No joint effusion. There is calcaneal enthesopathy. XR/XR ankle LT 2V IMPRESSION: No acute traumatic findings. <María Rodriguez MD - Last Filed: 07/13/21 22:47> Discharge Plan Discharge Clinical Impression: Multiple contusions <Tracie Morrow PA-C - Last Filed: 07/13/21 18:50> Patient Disposition: Home, Self-Care <Tracie Morrow PA-C - Last Filed: 07/13/21 18:50> Instructions: Contusion in Adults (ED) <Tracie Morrow PA-C - Last Filed: 07/13/21 18:50> Additional Instructions: Please follow-up with your primary care physician tomorrow. If you have any worsening or new symptoms, please return to the emergency room or call 911 <Tracie Morrow PA-C - Last Filed: 07/13/21 18:50> Prescriptions: New oxycodone-acetaminophen [Percocet] 5-325 mg tablet 1 tab PO BID PRN (Reason: pain) Qty: 7 RF: 0 cyclobenzaprine 5 mg tablet 5 mg PO TID PRN (Reason: muscle spasm) Qty: 10 RF: 0 No Action rivaroxaban [Xarelto] 20 mg tablet 20 mg PO DAILY Qty: 90 RF: 2 atorvastatin 20 mg tablet 20 mg PO DAILY 90 Days Qty: 90 RF: 0 carvedilol 25 mg tablet 25 mg PO BID 90 Days Qty: 180 RF: 1 cholecalciferol (vitamin D3) 50 mcg (2,000 unit) capsule 50 mcg PO DAILY Qty: 90 RF: 1 docusate sodium 100 mg capsule 100 mg PO BEDTIME Qty: 30 RF: 0 (DME) blood pressure kit-extra large Kit See Rx Instructions .ROUTE .MEDSUPPLY Qty: 1 RF: 0 hydrochlorothiazide 12.5 mg tablet 12.5 mg PO DAILY 10 Days Qty: 10 RF: 0 zolpidem 10 mg tablet 10 mg PO BEDTIME PRN (Reason: Sleep) RF: 0 lorazepam 0.5 mg tablet 0.5 mg PO RF: 0 aripiprazole 5 mg tablet 5 mg PO DAILY RF: 0 buspirone 15 mg tablet 15 mg PO BID RF: 0 lisinopril 40 mg tablet 40 mg PO DAILY RF: 0 spironolactone 25 mg tablet 25 mg PO BID RF: 0 omeprazole 20 mg capsule,delayed release(DR/EC) 20 mg PO DAILY RF: 0 amlodipine 10 mg tablet 10 mg PO DAILY RF: 0 fluticasone propionate 110 mcg/actuation HFA aerosol inhaler 1 puff inhalation BID RF: 0 sertraline 100 mg tablet 100 mg PO DAILY RF: 0 cyclobenzaprine 10 mg tablet 10 mg PO TID PRN (Reason: muscle spasm) Qty: 21 RF: 0 methocarbamol 500 mg tablet 500 mg PO TID Qty: 90 RF: 0 <Tracie Morrow PA-C - Last Filed: 07/13/21 18:50>
--- NOTE | 2021-07-13 21:25 | PC.NURSE ---
Off to XRay
[2021-07-13] MEDS: Acetaminophen 325 MG TABLET 650 MG PO (21:37)
--- NOTE | 2021-07-13 21:38 | PC.NURSE ---
Pt returns from XRay, crying, reporting severe pain. Medicated with Tylenol per JAN.
== END 2021-07-13 22:51 | disposition home or self-care (01) ==
PROVIDERS: Emergency Provider Emergency Medicine; PCP Nurse Practitioner Family
DX: S80.01XA Contusion of right knee, initial encounter (principal); M25.561 Pain in right knee; M25.552 Pain in left hip; M25.551 Pain in right hip; I10 Essential (primary) hypertension; W01.0XXA Fall on same level from slipping, tripping and stumbling without subsequent striking against object, initial encounter; Y93.9 Activity, unspecified; Y92.9 Unspecified place or not applicable; Y99.9 Unspecified external cause status; Z79.899 Other long term (current) drug therapy
CPT/HCPCS: 73521; 73560; 73600; 99283

== ENCOUNTER 2021-07-20 13:21 | Outpatient (REF) | payer OTHER, SELFPAY ==
--- NOTE | ~2021-07-20 | MR_ITS ---
EXAMINATION: MR LUMBAR SPINE WITHOUT CONTRAST CLINICAL INFORMATION: Low back pain and bilateral leg weakness and pain. COMPARISON: MRI dated 09/05/2014 TECHNIQUE: MRI of the lumbar spine was obtained using routine sequences without contrast. FINDINGS: VERTEBRAL BODIES AND PARASPINAL STRUCTURES: The marrow signal is within normal limits. There are no compression fractures or anterior subluxations. No marrow or soft tissue edema visible. The paraspinal soft tissues appear normal. The imaged bony pelvis is unremarkable. CONUS MEDULLARIS AND CAUDA EQUINA: Normal, terminating at the level of L1-L2. No lower cord signal abnormality is seen. The cauda equina nerve roots are normal. SPINAL LEVELS: L1-L2: Well-hydrated normal appearance of the disc without central canal stenosis or foraminal narrowing. L2-L3: Previous posterior disc bulge has resorbed. No central canal stenosis or foraminal narrowing. L3-L4: Minimal retrosubluxation and disc bulge without central canal stenosis. Mild left foraminal narrowing. L4-L5: Mild disc bulge and progressed hypertrophic facet arthropathy without central canal stenosis or significant foraminal narrowing. L5-S1: Small posterior annular fissure and mild disc bulge again visible with mild facet arthropathy. No central canal stenosis or foraminal narrowing. MR/MR lumbar spine wo con IMPRESSION: Mild lumbar spondylosis. No focal disc protrusion or central canal stenosis.
== END 2021-07-20 13:22 | disposition home or self-care (01) ==
LOC: HO.MRI 13:21
PROVIDERS: Visit Provider Nurse Practitioner Family
DX: M47.27 Other spondylosis with radiculopathy, lumbosacral region (principal)
CPT/HCPCS: 72148

== ENCOUNTER → 2021-07-21 12:52 | Outpatient (BNVA) | payer OTHER, SELFPAY | PROVIDERS: PCP Nurse Practitioner Family; Visit Provider Internal Medicine Cardiovascular Disease | DX: I48.0 Paroxysmal atrial fibrillation (principal); I10 Essential (primary) hypertension | CPT/HCPCS: 99212 ==

== ENCOUNTER → 2021-07-30 13:36 | Outpatient (REF) | payer OTHER, SELFPAY | LOC: HO.SL 13:36 | PROVIDERS: PCP Nurse Practitioner Family; Visit Provider Internal Medicine Cardiovascular Disease | DX: G47.10 Hypersomnia, unspecified (principal); I10 Essential (primary) hypertension; I48.0 Paroxysmal atrial fibrillation | CPT/HCPCS: 95806 ==

== ENCOUNTER → 2021-08-17 15:21 | Outpatient (BNVA) | payer OTHER, SELFPAY | PROVIDERS: PCP Nurse Practitioner Family; Visit Provider Internal Medicine | DX: E66.01 Morbid (severe) obesity due to excess calories (principal); G47.33 Obstructive sleep apnea (adult) (pediatric); J45.909 Unspecified asthma, uncomplicated | CPT/HCPCS: 99202 ==

== ENCOUNTER 2021-08-24 13:56 | Outpatient (REF) | payer OTHER, SELFPAY ==
--- NOTE | 2021-08-24 17:09 | PFT_ITS ---
INDICATION: Dyspnea. SPIROMETRY: The FEV1 to FVC 87% with an FEV1 of 2.39 L which is 98% predicted and FVC of 2.74 L which is 89% predicted. No significant response to bronchodilators noted. Maximum voluntary ventilation 111% predicted. LUNG VOLUMES: Total lung capacity 91% predicted with a residual volume 80% predicted. DIFFUSION CAPACITY: DLCO of 89% predicted. COMPARISONS: None. INTERPRETATION: No obstructive nor restrictive ventilatory defects identified. No significant response to bronchodilators noted. Normal lung volumes and normal diffusion capacity. If asthma is in the differential, methacholine challenge may be helpful in assessing for hyper-reactive airways, otherwise clinical correlation warranted. MD BURTON Lawrence/MODL / [id number]
== END 2021-08-24 13:57 | disposition home or self-care (01) ==
LOC: HO.RESP 13:56
PROVIDERS: PCP Nurse Practitioner Family; Visit Provider Internal Medicine
DX: J45.909 Unspecified asthma, uncomplicated (principal); R05.9 Cough, unspecified
CPT/HCPCS: 94060; 94727; 94729

== ENCOUNTER 2021-08-25 06:27 | Outpatient (REF) | payer OTHER, SELFPAY ==
--- NOTE | ~2021-08-25 | FL_ITS ---
EXAMINATION: XR FLUOROSCOPY WITH IMAGES CLINICAL INFORMATION: Sacrococcygeal disorders COMPARISON: 05/08/2021 TECHNIQUE: Fluoroscopy performed by Dr. Mu Goldstein. Fluoroscopy time: 0.4 minutes DAP: 8.08 Gycm2 Images: 4 FINDINGS: Images demonstrate needles being placed into the bilateral sacroiliac joints with periarticular contrast. FL/FL guidance in treatment room IMPRESSION: Intraoperative fluoroscopy provided as above. Please see operative report.
== END 2021-08-25 06:28 | disposition home or self-care (01) ==
LOC: HO.RADIR 06:27
PROVIDERS: Visit Provider Anesthesiology
DX: M53.3 Sacrococcygeal disorders, not elsewhere classified (principal)
CPT/HCPCS: 27096; J3300; Q9967

== ENCOUNTER 2021-09-21 16:37 | Outpatient (REF) | payer OTHER, SELFPAY ==
[2021-09-21 17:31] LABS: Influenza A PCR NEGATIVE (Negative); Influenza B PCR NEGATIVE (Negative); Resp Syncy Virus RNA Qual PCR POSITIVE (Negative); SARS COV2 PCR INHOUSE NEGATIVE (Negative)
== END 2021-09-21 16:38 | disposition home or self-care (01) ==
LOC: HO.LNP 16:37
PROVIDERS: Visit Provider Physician Assistant Medical
DX: Z20.822 Contact with and (suspected) exposure to COVID-19 (principal); J06.9 Acute upper respiratory infection, unspecified
CPT/HCPCS: 0241U

== ENCOUNTER 2021-09-23 07:11 | Emergency (ER) | payer OTHER, SELFPAY ==
--- NOTE | ~2021-09-23 | XR_ITS ---
EXAMINATION: XR CHEST CLINICAL INFORMATION: Asthma COMPARISON: April 28, 2021 TECHNIQUE: Frontal view of the chest was obtained. FINDINGS: There is no evidence of acute parenchymal disease, pneumothorax, or pleural effusion. Heart normal size. No evidence of pulmonary edema. Status post right axillary surgery. XR/XR chest 1V IMPRESSION: No acute disease.
[2021-09-23 07:16] VITALS: BP 159/87; PULSE 95; RESP 20; TEMP 36.8; O2SAT 97; BMI 40.2
[2021-09-23 07:44] LABS: COVID-19 Test Negative (Negative); IDNOW Serial# 9DD0AD1C
--- NOTE | 2021-09-23 08:27 | ECG_ITS ---
Test Reason : SOB Blood Pressure : / mmHG Vent. Rate : 093 BPM Atrial Rate : 093 BPM P-R Int : 144 ms QRS Dur : 080 ms QT Int : 374 ms P-R-T Axes : 047 -04 051 degrees QTc Int : 465 ms Normal sinus rhythm Minimal voltage criteria for LVH, may be normal variant ( R in aVL ) Otherwise normal ECG Heart rate has increased Referred By: Jayne Calvillo Electronically Signed By:LEON SALINAS MD
[2021-09-23] MEDS: Albuterol/Iprat 2.5/0.5MG 3 ML AMPUL.NEB INHALE ×2 (08:40→10:35)
[2021-09-23] MEDS: Albuterol Sulfate (0.083%) 2.5 MG/3 ML VIAL.NEB 5 MG INHALE ×2 (08:40→10:34)
[2021-09-23 08:41] VITALS: PULSE 84; O2SAT 96
[2021-09-23 09:16] LABS: MANUAL DIFF FLAG NO
[2021-09-23 09:17] LABS: Basophils Percent Auto 0.5 % (0-2); Eosinophils Absolute Auto 0.1 X10*3/uL (0.0-0.4); Hematocrit 40.3 % (37.0-47.0); Hemoglobin 13.3 g/dl (12.0-16.0); Imm Gran Abs Auto 0.02 X10*3/uL (0.00-0.03); Imm Gran Pct Auto 0.3 % (0.0-0.4); Lymphocytes Absolute Auto 1.2 X10*3/uL (1.2-4.9); Lymphocytes Percent Auto 19.9 % (20-40); Mean Corpuscular Hemoglobin 27.4 pg (27.0-33.0); Mean Corpuscular Volume 83.1 fL (80.0-98.0); Mean Platelet Volume 10.5 fL (9.4-12.3); Monocytes Absolute Auto 0.5 X10*3/uL (0.1-1.2); Monocytes Percent Auto 8.5 % (2-11); Neutrophils Absolute Auto 4.22 x10*3/uL (2.0-8.3); Neutrophils Percent Auto 68.8 % (45-73); Platelet Count 170 X10*3/uL (160-400); Red Blood Count 4.85 X10*6/uL (4.20-5.50); Red Cell Distribution Width 14.5 % (11.0-16.0); White Blood Count 6.1 X10*3/uL (4.8-10.8)
[2021-09-23] MEDS: methylPREDNISolone Sod Succ 125 MG/2 ML VIAL IVPUSH (09:20)
[2021-09-23] MEDS: Magnesium Sulfate/H2O 2 GM/50 ML PIGGYBACK IV (09:25)
[2021-09-23 09:43] LABS: Alanine Aminotransferase 19 U/L (0-31); Albumin Level 3.7 g/dL (3.5-5.0); Alkaline Phosphatase 90 U/L (39-117); Anion Gap 14 (12-20); Aspartate Amino Transferase 18 U/L (5-31); Bilirubin Direct 0.2 mg/dL (0.0-0.5); Bilirubin Total 0.6 mg/dL (0.0-1.0); Blood Urea Nitrogen 11 mg/dL (9-16); Calcium 8.5 mg/dL (8.4-10.2); Carbon Dioxide 24 mmol/L (22-29); Chloride 106 mmol/L (96-108); Estimated Glomerular Filt Rate 58; Glucose Random 131 mg/dL (60-115); Magnesium 1.9 mg/dL (1.6-2.6); Potassium 3.8 mmol/L (3.3-5.1); Sodium 140 mmol/L (135-145); Total Protein 6.4 g/dL (6.5-8.0)
[2021-09-23 10:36] VITALS: O2SAT 96
[2021-09-23] MEDS: Benzonatate 100 MG CAPSULE 200 MG PO (11:01)
[2021-09-23] MEDS: HYDROcodone/Homat 5/1.5/5 ML 5 ML SYRUP PO (11:02)
--- NOTE | 2021-09-23 12:02 | ED_ITS ---
HPI - SOB/Dyspnea General Chief Complaint: Dyspnea Stated Complaint: ?asthma, cough, headache, ear pain Time Seen by Provider: 09/23/21 08:09 Source: patient Mode of arrival: ambulatory History of Present Illness HPI Narrative: 56-year-old female with a past medical history of AFib on Xarelto, asthma, depression, esophagitis, GERD, HTN, hyperlipidemia, WENDY, to the ED complaining of productive cough, wheezing, and mild SOB times multiple days. Denies chest pain, LE edema, recent travel, sick contacts, COVID-19 exposure, fever, chills, abdominal pain. Has been using asthma medications without relief MD elicited complaint: cough and asthma attack Related Data Home Medications Medication Instructions Recorded Confirmed amlodipine 10 mg tablet 10 mg PO DAILY 08/23/20 07/21/21 aripiprazole 5 mg tablet 5 mg PO DAILY 08/23/20 07/21/21 buspirone 15 mg tablet 15 mg PO BID 08/23/20 07/21/21 fluticasone propionate 110 1 puff INHALATION BID 08/23/20 07/21/21 mcg/actuation HFA aerosol inhaler lisinopril 40 mg tablet 40 mg PO DAILY 08/23/20 07/21/21 lorazepam 0.5 mg tablet 0.5 - 1 mg PO BID PRN tab 08/23/20 07/21/21 omeprazole 20 mg capsule,delayed 20 mg PO DAILY 08/23/20 07/21/21 release spironolactone 25 mg tablet 25 mg PO BID 08/23/20 07/21/21 zolpidem 10 mg tablet 10 mg PO BEDTIME PRN 08/23/20 07/21/21 sertraline 100 mg tablet 100 mg PO DAILY tab 05/26/21 07/21/21 Previous Rx's Medication Instructions Recorded blood pressure kit-extra large #1 ea 01/12/21 atorvastatin 20 mg tablet 20 mg PO DAILY 90 Days #90 tab 01/15/21 carvedilol 25 mg tablet 25 mg PO BID 90 Days #180 tab 03/30/21 cholecalciferol (vitamin D3) 50 50 mcg PO DAILY #90 cap 05/05/21 mcg (2,000 unit) capsule docusate sodium 100 mg capsule 100 mg PO BEDTIME #30 cap 05/08/21 cyclobenzaprine 10 mg tablet 10 mg PO TID PRN #21 tab 06/09/21 hydrochlorothiazide 12.5 mg tablet 12.5 mg PO DAILY 10 Days #10 tab 06/15/21 methocarbamol 500 mg tablet 500 mg PO TID #90 tab 06/23/21 rivaroxaban 20 mg tablet (Xarelto) 20 mg PO DAILY #90 tab 08/02/21 amoxicillin 875 mg-potassium 1 tab PO Q12H 7 Days #14 tab 09/21/21 clavulanate 125 mg tablet (Augmentin) benzonatate 100 mg capsule 100 mg PO TID PRN #30 cap 09/21/21 (Tessalon Perles) albuterol sulfate 2.5 mg/0.5 mL 5 mg INHALATION Q4H PRN #30 ea 09/23/21 solution for nebulization albuterol sulfate 90 mcg/actuation 2 puff INHALATION Q4-6H PRN #6.7 g 09/23/21 aerosol inhaler benzonatate 200 mg capsule 200 mg PO TID PRN #14 cap 09/23/21 fluticasone propionate 50 2 spray INTRANASAL DAILY #16 g 09/23/21 mcg/actuation nasal spray,suspension (Flonase Allergy Relief) prednisone 20 mg tablet 40 mg PO DAILY 5 Days #10 tab 09/23/21 Allergies Allergy/AdvReac Type Severity Reaction Status Date / Time ibuprofen [IBUPROFEN] Allergy Mild RASH, Verified 09/21/21 11:45 hives, hives Review of Systems Review of Systems: Constitutional: No Fever, No Chills, No Fatigue, No Olivia ise ENT/Mouth: No Ear Pain, No Nasal Congestion, No sore throat, + Rhinorrhea, No Swallowing Difficulty Eyes: No Eye Pain, No Swelling, No Redness,No Discharge Cardiovascular: No Chest Pain, + SOB, No Dyspnea on Exertion, No Edema, No Palpitations Respiratory: + Cough, + Sputum, + Wheezing, No Smoke Exposure, + Dyspnea Gastrointestinal: No Nausea, No Vomiting, No Diarrhea, No Constipation, No Abdo dai pain Genitourinary: No Dysuria, No Urinary Frequency,No Flank Pain Musculoskeletal: No joint pain, No Myalgias, No Joint Swelling Skin: No Skin Lesions, No rash Neuro: No Weakness, No Dizziness, No Headache Yes all other systems are reviewed and are negative PMFSH Past Medical History Attestation statement: The following information was validated with the patient. Medical History (Updated 09/23/21 @ 12:09 by HANNAH Fagan) Adenomatous polyp of colon Afib Anxiety Asthma Asthma Auditory hallucinations Benign neoplasm breast skin Bursitis, shoulder Calcaneal spur Cervical pain (neck) Depression Disc degeneration, lumbar Dyspepsia Esophagitis GERD (gastroesophageal reflux disease) HTN (hypertension) Hyperlipidemia Hypertensive urgency Impaired glucose tolerance Morbid obesity WENDY (obstructive sleep apnea) WENDY (obstructive sleep apnea) PAF (paroxysmal atrial fibrillation) Palpitations Swelling of both lower extremities Xanthelasma Surgical History H/O esophagogastroduodenoscopy (09/01/15) H/O esophagogastroduodenoscopy (11/13/19) History of esophagogastroduodenoscopy (06/14/12) History of hysterectomy History of removal of cyst Hx of cholecystectomy Hx of colonoscopy Status post Margarita fundoplication (10/27/12) Family History Family History Father CVD (cardiovascular disease) HTN (hypertension) Diabetes Mother HTN (hypertension) Diabetes CVD (cardiovascular disease) Brother Pacemaker Maternal Grandmother Throat cancer Brother No problems noted. Daughter Hx LEEP (loop electrosurgical excision procedure), cervix, Other Mental health disorder Substance use disorder Social History Social History Household Members: None Housing: House Are you a primary critical care rn to a significant other at home: No Alcohol intake: current Alcohol intake frequency: does not drink Patient Tobacco Use Status: Never used Tobacco Advance Directives: No Advance Directives Date on File: 03/16/21 Patient : No Current occupational status: disabled Sexual orientation: Straight/Heterosexual Gender identity: Female Physical Exam Vital Signs: Vital Signs: Last Vital Signs Temp 98.2 F 09/23/21 07:16 Pulse 84 09/23/21 08:41 Resp 20 09/23/21 07:16 BP 159/87 H 09/23/21 07:16 Pulse Ox 97 09/23/21 07:16 Body Mass Index 40.2 Const: General: cooperative, healthy appearing and no acute distress Orientation/consciousness: patient oriented x3 Limitations: no limitations HENMT: Head: Yes normal to inspection Ears: hearing grossly normal bilaterally General nose exam: Normal external nose present Face and sinus: Yes normal facial exam Eyes: General: appearance normal, both eyes and all related structures EOM: EOMs intact bilaterally Neck: Neck: Yes normal visual inspection and Yes no meningeal signs Resp: Effort & Inspection: normal respiratory effort Auscultation: wheezes expiratory wheezes and throughout Cardio: Rate: regular rate Heart sounds: S1 normal heart sound present and S2 normal heart sound present GI: Inspection: Yes normal to inspection Palpation (GI): Soft to palpation, nontender, no guarding and not rigid Skin: Rashes: no rashes Wounds: no wounds Neuro: General: patient oriented x3 and no meningeal signs Gait exam (Neuro): Normal gait present Extrem: General: Yes normal to inspection, Yes no pedal edema and Yes no calf tenderness Course Course Course Narrative: -no leukocytosis, labs otherwise unremarkable, COVID-19 negative XR chest 1V IMPRESSION: No acute disease. -after 1st DuoNeb patient still with diffuse expiatory wheeze, additional DuoNeb ordered -1203--on re-evaluation patient reports symptomatic improvement, slight residual end expiratory wheeze bibasilar, but much improved air movement. patient feels safe for discharge home at this time. Offered additional DuoNeb however patient and like to go home to use her own neb machine. Will DC with neb refills, prednisone, Tessalon Perles and Flonase, discussed worrisome signs and symptoms and strict return precautions MDM - SOB/Dyspnea MDM Narrative Medical decision making narrative: 56-year-old female with a past medical history of AFib on Xarelto, asthma, depression, esophagitis, GERD, HTN, hyperlipidemia, WENDY, to the ED complaining of productive cough, wheezing, and mild SOB times multiple days. On exam vital signs stable, NAD, nontoxic, diffuse end expiratory wheeze, no pedal edema/calf tenderness. Concern for asthma exacerbation vs viral syndrome/COVID-19. Rule out pneumonia. Low concern for CHF/PE Plan: EKG, labs, CXR, COVID-19 testing, DuoNeb, albuterol, Solu-Medrol, re- evaluate Medical Records Attestation: I reviewed the patient's medical records. Lab Data Attestation: I reviewed the patient's lab results. Result diagrams: 11/03/21 09:12 09/23/21 09:12 Labs: Lab Results 09/23/21 09/23/21 09/23/21 Range/Units 07:21 09:12 09:12 WBC 6.1 (4.8-10.8) X10*3/uL RBC 4.85 (4.20-5.50) X10*6/uL Hgb 13.3 (12.0-16.0) g/dl Hct 40.3 (37.0-47.0) % MCV 83.1 (80.0-98.0) fL MCH 27.4 (27.0-33.0) pg MCHC 33.0 (31.0-35.0) g/dl RDW 14.5 (11.0-16.0) % Plt Count 170 (160-400) X10*3/uL MPV 10.5 (9.4-12.3) fL Immature Gran % (Auto) 0.3 (0.0-0.4) % Neut % (Auto) 68.8 (45-73) % Lymph % (Auto) 19.9 L (20-40) % [place]ford % (Auto) 8.5 (2-11) % Eos % (Auto) 2.0 (0-4) % Baso % (Auto) 0.5 (0-2) % Lymph # (Auto) 1.2 (1.2-4.9) X10*3/uL [place] # (Auto) 0.5 (0.1-1.2) X10*3/uL Eos # (Auto) 0.1 (0.0-0.4) X10*3/uL Baso # (Auto) 0.0 (0.0-0.2) X10*3/uL Abs Immat Gran (auto) 0.02 (0.00-0.03) X10*3/uL Absolute Neuts (auto) 4.22 (2.0-8.3) x10*3/uL Absolute Nucleated RBC 0.000 (0.0-0.012) X10*3/uL Nucleated RBC % (auto) 0.0 (0.0-0.2) /100WBC Sodium 140 (135-145) mmol/L Potassium 3.8 (3.3-5.1) mmol/L Chloride 106 (96-108) mmol/L Carbon Dioxide 24 (22-29) mmol/L Anion Gap 14 (12-20) BUN 11 (9-16) mg/dL Creatinine 0.98 (0.5-1.4) mg/dL Estim Creat Clear Calc 70.0 Estimated GFR 58 Random Glucose 131 H (60-115) mg/dL Calcium 8.5 (8.4-10.2) mg/dL Magnesium 1.9 (1.6-2.6) mg/dL Total Bilirubin 0.6 (0.0-1.0) mg/dL Direct Bilirubin 0.2 (0.0-0.5) mg/dL AST 18 (5-31) U/L ALT 19 (0-31) U/L Alkaline Phosphatase 90 (39-117) U/L Total Protein 6.4 L (6.5-8.0) g/dL Albumin 3.7 (3.5-5.0) g/dL COVID-19 ([facility]) Negative (Negative) COVID-19 Clin Com See Note ECG Data Attestation: I personally reviewed and interpreted this ECG as follows: ECG interpretation date: 09/23/21 ECG interpretation time: 09:45 Interpretation: EKG normal sinus rhythm with a rate of 93. QTC 465. Nonis chemic/no STEMI QRS 80 Discharge Plan Discharge Clinical Impression: Asthma Qualifiers: Asthma severity: unspecified severity Asthma persistence: unspecified Asthma complication type: with acute exacerbation Qualified Code(s): J45.901 - Unspecified asthma with (acute) exacerbation Patient Disposition: Home, Self-Care Instructions: Asthma (ED) Additional Instructions: Your blood work and chest x-ray were reassuring today in the ED It is very important that you use a nebulizer machine and inhalers at home In addition starting prednisone, which is steroid which will help with her breathing Flonase is a nasal decongestant, Tessalon Perles to help with cough Please follow-up with her doctor in the next 2-3 days If her symptoms persist or worsen have constant worsening cough, no shortness of breath, chest pain, or fever return to the ED immediately Prescriptions: New albuterol sulfate 90 mcg/actuation HFA aerosol inhaler 2 puff inhalation Q4-6H PRN (Reason: shortness of breath or wheezing) Qty: 6.7 RF: 0 albuterol sulfate 2.5 mg/0.5 mL solution for nebulization 5 mg inhalation Q4H PRN (Reason: shortness of breath or wheezing) Qty: 30 RF: 0 prednisone 20 mg tablet 40 mg PO DAILY 5 Days Qty: 10 RF: 0 fluticasone propionate [Flonase Allergy Relief] 50 mcg/actuation spray,suspension 2 spray intranasal DAILY Qty: 16 RF: 0 benzonatate 200 mg capsule 200 mg PO TID PRN (Reason: cough) Qty: 14 RF: 0 No Action atorvastatin 20 mg tablet 20 mg PO DAILY 90 Days Qty: 90 RF: 0 carvedilol 25 mg tablet 25 mg PO BID 90 Days Qty: 180 RF: 1 cholecalciferol (vitamin D3) 50 mcg (2,000 unit) capsule 50 mcg PO DAILY Qty: 90 RF: 1 Xarelto 20 mg tablet 20 mg PO DAILY Qty: 90 RF: 2 docusate sodium 100 mg capsule 100 mg PO BEDTIME Qty: 30 RF: 0 (DME) blood pressure kit-extra large Kit See Rx Instructions .ROUTE .MEDSUPPLY Qty: 1 RF: 0 hydrochlorothiazide 12.5 mg tablet 12.5 mg PO DAILY 10 Days Qty: 10 RF: 0 benzonatate [Tessalon Perles] 100 mg capsule 100 mg PO TID PRN (Reason: cough) Qty: 30 RF: 0 amoxicillin-pot clavulanate [Augmentin] 875-125 mg tablet 1 tab PO Q12H 7 Days Qty: 14 RF: 0 zolpidem 10 mg tablet 10 mg PO BEDTIME PRN (Reason: Sleep) RF: 0 lorazepam 0.5 mg tablet 0.5 - 1 mg PO BID PRN (Reason: Anxiety) RF: 0 aripiprazole 5 mg tablet 5 mg PO DAILY RF: 0 buspirone 15 mg tablet 15 mg PO BID RF: 0 lisinopril 40 mg tablet 40 mg PO DAILY RF: 0 spironolactone 25 mg tablet 25 mg PO BID RF: 0 omeprazole 20 mg capsule,delayed release(DR/EC) 20 mg PO DAILY RF: 0 amlodipine 10 mg tablet 10 mg PO DAILY RF: 0 fluticasone propionate 110 mcg/actuation HFA aerosol inhaler 1 puff inhalation BID RF: 0 sertraline 100 mg tablet 100 mg PO DAILY RF: 0 cyclobenzaprine 10 mg tablet 10 mg PO TID PRN (Reason: muscle spasm) Qty: 21 RF: 0 methocarbamol 500 mg tablet 500 mg PO TID Qty: 90 RF: 0 Referrals: Alfredo Massey, [facility] [Primary Care Provider] - 2 days
[2021-09-23 12:04] VITALS: BP 130/70; PULSE 87; RESP 16; TEMP 36.9; O2SAT 95
== END 2021-09-23 12:28 | disposition home or self-care (01) ==
PROVIDERS: Physician Assistant; Emergency Provider Emergency Medicine; PCP Nurse Practitioner Family
DX: J45.901 Unspecified asthma with (acute) exacerbation (principal); I48.0 Paroxysmal atrial fibrillation; I10 Essential (primary) hypertension; Z79.01 Long term (current) use of anticoagulants; Z20.822 Contact with and (suspected) exposure to COVID-19
CPT/HCPCS: 36415; 71045; 80048; 80076; 83735; 85025; 87635; 93005; 94640; 94644; 94645; 96365; 96366; 96375; 99284; 99285; J2930; J3475

== ENCOUNTER → 2021-09-25 11:08 | Outpatient (REF) | payer OTHER, SELFPAY ==
--- NOTE | 2021-09-25 11:11 | CA_ITS ---
Transthoracic Echocardiogram Patient (Last, First, Middle): Nydia Hammonds, Gender: Female Date of : 1965 Age: 56 Procedure Date: 09/25/2021 Procedure Type: Transthoracic Echocardiogram Location: OP Height: 157.48 cm Weight: 100.7 kg BSA: 2.00 m2 Heart Rate: bpm BP: 134 / 82 mmHg Parts Sales Manager: Referring MD: Pritesh Lebron MD Customer Solutions Specialist: Pritesh Lebron MD Symptoms: I48.0 - Paroxysmal atrial fibrillation Study Quality: Good ECG Rhythm: Sinus Conclusions: - 1. Normal LV systolic function with impaired relaxation filling pattern 2. Normal cardiac valvular Doppler 3. Normal RV systolic pressure 4. No pericardial effusion Findings Left Ventricle Normal left ventricular size and systolic function. There is mildly increased left ventricular wall thickness. The visually estimated ejection fraction is between 55-60%. Spectral Doppler is indicative of an impaired relaxation filling pattern. E/E prime ratio is between 8 and 15 consistent with indeterminate filling pressures. Right Ventricle Normal right ventricular cavity size and systolic function. Atria The left atrium is likely dilated. Interatrial shunt cannot be excluded. The right atrium is normal in size. Aortic Valve The aortic valve structure and function is likely normal. There is no aortic valve stenosis. There is no aortic valve regurgitation. Mitral Valve Normal mitral valve structure and function. There is trace mitral valve regurgitation. There is no mitral valve stenosis. Pulmonic Valve The pulmonic valve was not well visualized. Tricuspid Valve Normal tricuspid valve structure. There is trace tricuspid valve regurgitation. The right ventricular systolic pressure is normal. The right ventricular systolic pressure is 19 mmHg. Normal right atrial pressure. Great Vessels All visible segments of the aorta are normal in size. The pulmonary artery was not well visualized. Venous The inferior vena cava is normal in size and collapses greater than 50% with inspiration. Pericardium/Pleural There is no evidence of pericardial effusion. Prior Study Comparison No significant change compared to prior study dated: 07/01/2020. Measurements 2D Linear Measurements IVSd: 1.36 0.6-0.9/0.6-1.0 cm LVIDd: 4.15 3.9-5.3/4.2-5.9 cm LVIDd Index: 2.08 2.4-3.2/2.2-3.1 cm/m2 LVIDs: 2.49 2.0-3.6 cm LVPWd: 1.26 0.7-1.1 cm Ao Root: 2.70 2.1-3.5 cm LA Diam: 3.70 2.7-3.8/3.0-4.0 cm LAIDs Index: 1.85 1.5-2.3 cm/m2 LV Mass: 248.37 67-162/88-224 g LV Mass Index: 124.18 43-95/49-115 g/m2 LVOT Diam: 2.10 3.0+(-)1.3 cm 2D Systolic Function EF 4C: 53.40 >55% EF 2C: 54.30 >55% Mitral Valve MV Pk E: 0.61 MV PK A: 0.63 MV Decel Time: 232.00 E/A: 1.00 E'Lateral: 6.53 E'Medial: 5.11 E/E' Med: 12.00 E/E' Lat: 9.40 PHT: 68.00 MVA PHT: 3.24 Decel [place]: 2.64 Aortic Valve AoV Pk Bertrand: 1.46 AoV Mn Bertrand: 1.05 AoV VTI: 0.33 AoV Pk Grad: 9.00 Aov Mn Grad: 5.00 BRTIT Cont.VTI: 2.36 LVOT LVOT Pk Bertrand: 1.03 LVOT Mn Bertrand: 0.66 LVOT VTI: 0.22 LVOT Pk Grad: 4.00 LVOT Mn Grad: 2.00 LVOT Diam: 2.10 LVOT Area: 3.46 Diastolic Function MV Pk E: 0.61 MV Pk A: 0.63 E/A: 1.00 E'Medial: 5.11 E/E' Med: 12.00 E' Laterial: 6.53 E/E' Lat: 9.40 Tricuspid Valve TR Pk Bertrand: 2.02 TR Pk Grad: 16.00 RA Press: 3.00 RVSP: 19.00 Great Vessels Aorta Ao Root-2D: 2.70 2.0-3.7 cm Ao Asc: 3.30 2.1-3.4 cm Pulmonary Valve PV Pk Bertrand: 0.95 Peak PV Grad: 4.00 Updated in Other Vendor System with Status of Final Pritesh Lebron MD electronically signed on 09/25/2021 5:15:13 PM with status of Final
== END ==
LOC: HO.CARD 11:08
PROVIDERS: PCP Nurse Practitioner Family; Visit Provider Internal Medicine Cardiovascular Disease
DX: I48.0 Paroxysmal atrial fibrillation (principal)
CPT/HCPCS: 93306

== ENCOUNTER 2021-09-29 16:03 | Emergency (ER) | payer OTHER, SELFPAY ==
--- NOTE | ~2021-09-29 | US_ITS ---
EXAMINATION: US VENOUS ULTRASOUND WITH DOPPLER LOWER EXTREMITY, LEFT CLINICAL INFORMATION: Pain. Patient on Xarelto. COMPARISON: Lower extremity ultrasound, left side, dated from 05/31/2014. TECHNIQUE: Ultrasound of the deep veins is performed from the hip to the calf with compression sonography and color and pulse Doppler assessment. Spectral analysis with color-flow imaging is performed. FINDINGS: There is normal venous compression and respiratory variation and augmented flow. The visualized common femoral vein, superficial femoral vein, profunda femoral vein, popliteal vein, and the trifurcation region shows no evidence of deep venous thrombosis. There is no significant popliteal fossa cyst. If the patient's symptoms persist, followup ultrasound in 5 days 7 days might be of value to exclude proximal propagation from a non-visualized calf vein. US/US venous duplex LE IMPRESSION: No DVT demonstrated in the left lower extremity.
[2021-09-29 16:22] VITALS: BP 184/86; PULSE 89; RESP 20; TEMP 36.6; O2SAT 97; BMI 41.1
--- NOTE | 2021-09-29 17:49 | ED_ITS ---
HPI - Back Pain/Injury General Chief Complaint: Back Pain/Injury Stated Complaint: left side back pain Time Seen by Provider: 09/29/21 16:27 History of Present Illness HPI Narrative: Patient complains of left-sided back pain radiating down left leg for the last 2 days, she has had similar pain many times before but it is worse today Related Data Home Medications Medication Instructions Recorded Confirmed amlodipine 10 mg tablet 10 mg PO DAILY 08/23/20 09/30/21 aripiprazole 5 mg tablet 5 mg PO DAILY 08/23/20 09/30/21 buspirone 15 mg tablet 15 mg PO BID 08/23/20 09/30/21 fluticasone propionate 110 1 puff INHALATION BID 08/23/20 09/30/21 mcg/actuation HFA aerosol inhaler lisinopril 40 mg tablet 40 mg PO DAILY 08/23/20 09/30/21 lorazepam 0.5 mg tablet 0.5 - 1 mg PO BID PRN tab 08/23/20 09/30/21 omeprazole 20 mg capsule,delayed 20 mg PO DAILY 08/23/20 09/30/21 release spironolactone 25 mg tablet 25 mg PO BID 08/23/20 09/30/21 zolpidem 10 mg tablet 10 mg PO BEDTIME PRN 08/23/20 09/30/21 sertraline 100 mg tablet 100 mg PO DAILY tab 05/26/21 09/30/21 Previous Rx's Medication Instructions Recorded blood pressure kit-extra large #1 ea 01/12/21 atorvastatin 20 mg tablet 20 mg PO DAILY 90 Days #90 tab 01/15/21 carvedilol 25 mg tablet 25 mg PO BID 90 Days #180 tab 03/30/21 cholecalciferol (vitamin D3) 50 50 mcg PO DAILY #90 cap 05/05/21 mcg (2,000 unit) capsule docusate sodium 100 mg capsule 100 mg PO BEDTIME #30 cap 05/08/21 cyclobenzaprine 10 mg tablet 10 mg PO TID PRN #21 tab 06/09/21 hydrochlorothiazide 12.5 mg tablet 12.5 mg PO DAILY 10 Days #10 tab 06/15/21 methocarbamol 500 mg tablet 500 mg PO TID #90 tab 06/23/21 rivaroxaban 20 mg tablet (Xarelto) 20 mg PO DAILY #90 tab 08/02/21 amoxicillin 875 mg-potassium 1 tab PO Q12H 7 Days #14 tab 09/21/21 clavulanate 125 mg tablet (Augmentin) benzonatate 100 mg capsule 100 mg PO TID PRN #30 cap 09/21/21 ([employer]) albuterol sulfate 2.5 mg/0.5 mL 5 mg INHALATION Q4H PRN #30 ea 09/23/21 solution for nebulization albuterol sulfate 90 mcg/actuation 2 puff INHALATION Q4-6H PRN #6.7 g 09/23/21 aerosol inhaler benzonatate 200 mg capsule 200 mg PO TID PRN #14 cap 09/23/21 fluticasone propionate 50 2 spray INTRANASAL DAILY #16 g 09/23/21 mcg/actuation nasal spray,suspension (Flonase Allergy Relief) prednisone 20 mg tablet 40 mg PO DAILY 5 Days #10 tab 09/23/21 camphor 4.7 %-eucalyptus oil 1.2 1 appl TOPICAL BID-QID PRN 30 Days 09/24/21 %-menthol 2.6 % topical ointment #50 g ([employer] Vaporub) acetaminophen 500 mg tablet 1,000 mg PO TID PRN #20 tab 09/29/21 oxycodone 5 mg tablet 5 mg PO Q6H PRN #10 tab 09/29/21 albuterol sulfate 2.5 mg (3 mL) INHALATION QID PRN 09/30/21 30 Days #180 ml dexamethasone 4 mg tablet 4 mg PO DAILY 9 Days #18 tab 09/30/21 gabapentin 100 mg capsule 100 mg PO TID #30 cap 10/02/21 Allergies Allergy/AdvReac Type Severity Reaction Status Date / Time ibuprofen [IBUPROFEN] Allergy Mild RASH, Verified 10/06/21 09:00 hives, hives Review of Systems Review of Systems: Positive for left leg pain with back pain radiating from the back to the left leg Negatives are no fever no chills no dizziness no weakness no headache no neck pain no difficulty breathing or swallowing no chest pain no shortness of breath no abdominal pain no nausea or vomiting no dysuria no frequency no incontinence no changes to bowel or bladder no weakness no loss of sensation Yes all other systems are reviewed and are negative PMFSH Past Medical History Source: nursing notes reviewed Medical History Adenomatous polyp of colon Afib Anxiety Asthma Asthma Auditory hallucinations Benign neoplasm breast skin Bursitis, shoulder Calcaneal spur Cervical pain (neck) Depression Disc degeneration, lumbar Dyspepsia Esophagitis GERD (gastroesophageal reflux disease) HTN (hypertension) Hyperlipidemia Hypertensive urgency Impaired glucose tolerance Morbid obesity WENDY (obstructive sleep apnea) WENDY (obstructive sleep apnea) PAF (paroxysmal atrial fibrillation) Palpitations Sacroiliac joint dysfunction of right side Sacroiliitis Swelling of both lower extremities Xanthelasma Surgical History H/O esophagogastroduodenoscopy (09/01/15) H/O esophagogastroduodenoscopy (11/13/19) History of esophagogastroduodenoscopy (06/14/12) History of hysterectomy History of removal of cyst Hx of cholecystectomy Hx of colonoscopy Status post Margarita fundoplication (10/27/12) Family History Family History Father CVD (cardiovascular disease) HTN (hypertension) Diabetes Mother HTN (hypertension) Diabetes CVD (cardiovascular disease) Brother Pacemaker Maternal Grandmother Throat cancer Brother No problems noted. Daughter Hx LEEP (loop electrosurgical excision procedure), cervix, Other Mental health disorder Substance use disorder Social History Social History Household Members: None Housing: House Are you a primary school child care attendant to a significant other at home: No Alcohol intake: current Alcohol intake frequency: does not drink Patient Tobacco Use Status: Never used Tobacco Advance Directives Date on File: 03/16/21 Current occupational status: disabled Sexual orientation: Straight/Heterosexual Gender identity: Female Physical Exam Vital Signs: Vital Signs: Last Vital Signs Temp 97.9 F 09/29/21 16:22 Pulse 89 09/29/21 16:22 Resp 20 09/29/21 16:22 BP 184/86 H 09/29/21 16:22 Pulse Ox 97 09/29/21 16:22 Body Mass Index 41.1 General appearance no acute distress Head is normocephalic atraumatic Neck is supple Respiratory no distress Chest clear to auscultation bilateral Heart no murmur Abdomen soft nontender The back had left lower lumbar paraspinal tenderness no focal bony tenderness no CVA tenderness, skin is intact and normal Extremities is full range of motion x4 The left leg had did have tenderness in the popliteal and posterior calf area, there is mild edema in both legs, neurovascular intact distal and skin normal Neuro no focal motor sensory deficits Course Course Course Narrative: Ultrasound was done of the left leg which did not reveal any DVT and patient was discharged with treatment for sciatica, pain in her leg is likely from radiating pain from pinched nerve in her back Discharge Plan Discharge Clinical Impression: Sciatica Patient Disposition: Home, Self-Care Additional Instructions: Ultrasound of your left leg did not show any blood clot Her pain is most likely from pinched nerve shooting down her left leg Follow with primary doctor Return any time if worse Prescriptions: New oxycodone 5 mg tablet 5 mg PO Q6H PRN (Reason: pain) Qty: 10 RF: 0 acetaminophen 500 mg tablet 1,000 mg PO TID PRN (Reason: pain) Qty: 20 RF: 0 No Action atorvastatin 20 mg tablet 20 mg PO DAILY 90 Days Qty: 90 RF: 0 carvedilol 25 mg tablet 25 mg PO BID 90 Days Qty: 180 RF: 1 cholecalciferol (vitamin D3) 50 mcg (2,000 unit) capsule 50 mcg PO DAILY Qty: 90 RF: 1 Xarelto 20 mg tablet 20 mg PO DAILY Qty: 90 RF: 2 [employer] Vaporub 4.7-1.2-2.6 % ointment 1 appl topical BID-QID PRN (Reason: cold symptoms) 30 Days Qty: 50 RF: 2 docusate sodium 100 mg capsule 100 mg PO BEDTIME Qty: 30 RF: 0 albuterol sulfate 90 mcg/actuation HFA aerosol inhaler 2 puff inhalation Q4-6H PRN (Reason: shortness of breath or wheezing) Qty: 6.7 RF: 0 albuterol sulfate 2.5 mg/0.5 mL solution for nebulization 5 mg inhalation Q4H PRN (Reason: shortness of breath or wheezing) Qty: 30 RF: 0 prednisone 20 mg tablet 40 mg PO DAILY 5 Days Qty: 10 RF: 0 fluticasone propionate [Flonase Allergy Relief] 50 mcg/actuation spray,suspension 2 spray intranasal DAILY Qty: 16 RF: 0 benzonatate 200 mg capsule 200 mg PO TID PRN (Reason: cough) Qty: 14 RF: 0 gabapentin 100 mg capsule 100 mg PO TID Qty: 30 RF: 0 (DME) blood pressure kit-extra large Kit See Rx Instructions .ROUTE .MEDSUPPLY Qty: 1 RF: 0 hydrochlorothiazide 12.5 mg tablet 12.5 mg PO DAILY 10 Days Qty: 10 RF: 0 benzonatate [Tessalon Perles] 100 mg capsule 100 mg PO TID PRN (Reason: cough) Qty: 30 RF: 0 amoxicillin-pot clavulanate [Augmentin] 875-125 mg tablet 1 tab PO Q12H 7 Days Qty: 14 RF: 0 dexamethasone 4 mg tablet 4 mg PO DAILY 9 Days Qty: 18 RF: 0 albuterol sulfate 2.5 mg /3 mL (0.083 %) solution for nebulization 2.5 mg inhalation QID PRN (Reason: shortness of breath or wheezing) 30 Days Qty: 180 RF: 0 zolpidem 10 mg tablet 10 mg PO BEDTIME PRN (Reason: Sleep) RF: 0 lorazepam 0.5 mg tablet 0.5 - 1 mg PO BID PRN (Reason: Anxiety) RF: 0 aripiprazole 5 mg tablet 5 mg PO DAILY RF: 0 buspirone 15 mg tablet 15 mg PO BID RF: 0 lisinopril 40 mg tablet 40 mg PO DAILY RF: 0 spironolactone 25 mg tablet 25 mg PO BID RF: 0 omeprazole 20 mg capsule,delayed release(DR/EC) 20 mg PO DAILY RF: 0 amlodipine 10 mg tablet 10 mg PO DAILY RF: 0 fluticasone propionate 110 mcg/actuation HFA aerosol inhaler 1 puff inhalation BID RF: 0 sertraline 100 mg tablet 100 mg PO DAILY RF: 0 cyclobenzaprine 10 mg tablet 10 mg PO TID PRN (Reason: muscle spasm) Qty: 21 RF: 0 methocarbamol 500 mg tablet 500 mg PO TID Qty: 90 RF: 0 Interventions: ED Discharge Assessment Last Done: 09/29/21 18:19 Discharge Date/Time: 09/29/21 18:20
== END 2021-09-29 18:20 | disposition home or self-care (01) ==
PROVIDERS: Emergency Provider Emergency Medicine; PCP Nurse Practitioner Family
DX: M54.42 Lumbago with sciatica, left side (principal); M79.605 Pain in left leg; R60.0 Localized edema; I10 Essential (primary) hypertension; I48.0 Paroxysmal atrial fibrillation; Z79.899 Other long term (current) drug therapy
CPT/HCPCS: 93971; 99283; 99284

== ENCOUNTER → 2021-10-01 08:22 | Outpatient (BNVA) | payer OTHER, SELFPAY | PROVIDERS: Visit Provider Anesthesiology | DX: M53.3 Sacrococcygeal disorders, not elsewhere classified (principal); M46.1 Sacroiliitis, not elsewhere classified | CPT/HCPCS: 99212 ==

== ENCOUNTER 2021-10-02 10:27 | Emergency (ER) | payer OTHER, SELFPAY ==
[2021-10-02 10:39] VITALS: BP 155/92; PULSE 88; RESP 17; TEMP 36.7; O2SAT 96; BMI 40.2
--- NOTE | 2021-10-02 11:17 | ED.GENADULT ---
HPI - General Adult General Chief complaint: Extremity Problem Stated complaint: lt leg pain Time Seen by Provider: 10/02/21 11:17 Source: patient Mode of arrival: ambulatory Limitations: no limitations History of Present Illness HPI narrative: Patient was seen Tuesday for sciatica but now having back pain radiating to the leg. Patient had an ultrasound that showed no clot. Onset (ago): day(s) Location: back Radiation: extremity (left leg) Severity: moderate Quality: burning Pain Consistency: intermittent Related Data Home Medications Medication Instructions Recorded Confirmed amlodipine 10 mg tablet 10 mg PO DAILY 08/23/20 09/30/21 aripiprazole 5 mg tablet 5 mg PO DAILY 08/23/20 09/30/21 buspirone 15 mg tablet 15 mg PO BID 08/23/20 09/30/21 fluticasone propionate 110 1 puff INHALATION BID 08/23/20 09/30/21 mcg/actuation HFA aerosol inhaler lisinopril 40 mg tablet 40 mg PO DAILY 08/23/20 09/30/21 lorazepam 0.5 mg tablet 0.5 - 1 mg PO BID PRN tab 08/23/20 09/30/21 omeprazole 20 mg capsule,delayed 20 mg PO DAILY 08/23/20 09/30/21 release spironolactone 25 mg tablet 25 mg PO BID 08/23/20 09/30/21 zolpidem 10 mg tablet 10 mg PO BEDTIME PRN 08/23/20 09/30/21 sertraline 100 mg tablet 100 mg PO DAILY tab 05/26/21 09/30/21 Previous Rx's Medication Instructions Recorded blood pressure kit-extra large #1 ea 01/12/21 atorvastatin 20 mg tablet 20 mg PO DAILY 90 Days #90 tab 01/15/21 carvedilol 25 mg tablet 25 mg PO BID 90 Days #180 tab 03/30/21 cholecalciferol (vitamin D3) 50 50 mcg PO DAILY #90 cap 05/05/21 mcg (2,000 unit) capsule docusate sodium 100 mg capsule 100 mg PO BEDTIME #30 cap 05/08/21 cyclobenzaprine 10 mg tablet 10 mg PO TID PRN #21 tab 06/09/21 hydrochlorothiazide 12.5 mg tablet 12.5 mg PO DAILY 10 Days #10 tab 06/15/21 methocarbamol 500 mg tablet 500 mg PO TID #90 tab 06/23/21 rivaroxaban 20 mg tablet (Xarelto) 20 mg PO DAILY #90 tab 08/02/21 amoxicillin 875 mg-potassium 1 tab PO Q12H 7 Days #14 tab 09/21/21 clavulanate 125 mg tablet (Augmentin) benzonatate 100 mg capsule 100 mg PO TID PRN #30 cap 09/21/21 (Tessalon Perles) albuterol sulfate 2.5 mg/0.5 mL 5 mg INHALATION Q4H PRN #30 ea 09/23/21 solution for nebulization albuterol sulfate 90 mcg/actuation 2 puff INHALATION Q4-6H PRN #6.7 g 09/23/21 aerosol inhaler benzonatate 200 mg capsule 200 mg PO TID PRN #14 cap 09/23/21 fluticasone propionate 50 2 spray INTRANASAL DAILY #16 g 09/23/21 mcg/actuation nasal spray,suspension (Flonase Allergy Relief) prednisone 20 mg tablet 40 mg PO DAILY 5 Days #10 tab 09/23/21 camphor 4.7 %-eucalyptus oil 1.2 1 appl TOPICAL BID-QID PRN 30 Days 09/24/21 %-menthol 2.6 % topical ointment #50 g ([employer] Vaporub) acetaminophen 500 mg tablet 1,000 mg PO TID PRN #20 tab 09/29/21 oxycodone 5 mg tablet 5 mg PO Q6H PRN #10 tab 09/29/21 albuterol sulfate 2.5 mg (3 mL) INHALATION QID PRN 09/30/21 30 Days #180 ml dexamethasone 4 mg tablet 4 mg PO DAILY 9 Days #18 tab 09/30/21 gabapentin 100 mg capsule 100 mg PO TID #30 cap 10/02/21 Allergies Allergy/AdvReac Type Severity Reaction Status Date / Time ibuprofen [IBUPROFEN] Allergy Mild RASH, Verified 10/01/21 08:26 hives, hives Review of Systems Constitutional: Constitutional: Reports no additional constitutional complaints Eyes: Eyes: Reports no additional eye complaints ENT: Denies dizziness Cardiovascular: Cardiovascular: Reports no additional cardiovascular complaints Respiratory: Respiratory: Reports as per HPI Gastrointestinal: Gastrointestinal: Reports no additional gastrointestinal complaints Genitourinary: Genitourinary: Reports no additional female genitourinary complaints Musculoskeletal: Musculoskeletal: Reports no additional musculoskeletal complaints Integumentary/Breasts: Skin/Breast: Denies rash Neurologic: Reports system reviewed and no additional complaints, except as documented, Denies dizziness and Denies Sensory deficit (Neuro) Psychiatric: Psychiatric: Denies anxiety PMFSH Past Medical History Medical History Adenomatous polyp of colon Afib Anxiety Asthma Asthma Auditory hallucinations Benign neoplasm breast skin Bursitis, shoulder Calcaneal spur Cervical pain (neck) Depression Disc degeneration, lumbar Dyspepsia Esophagitis GERD (gastroesophageal reflux disease) HTN (hypertension) Hyperlipidemia Hypertensive urgency Impaired glucose tolerance Morbid obesity WENDY (obstructive sleep apnea) WENDY (obstructive sleep apnea) PAF (paroxysmal atrial fibrillation) Palpitations Sacroiliac joint dysfunction of right side Sacroiliitis Swelling of both lower extremities Xanthelasma Surgical History H/O esophagogastroduodenoscopy (09/01/15) H/O esophagogastroduodenoscopy (11/13/19) History of esophagogastroduodenoscopy (06/14/12) History of hysterectomy History of removal of cyst Hx of cholecystectomy Hx of colonoscopy Status post Margarita fundoplication (10/27/12) Family History Family History Father CVD (cardiovascular disease) HTN (hypertension) Diabetes Mother HTN (hypertension) Diabetes CVD (cardiovascular disease) Brother Pacemaker Maternal Grandmother Throat cancer Brother No problems noted. Daughter Hx LEEP (loop electrosurgical excision procedure), cervix, Other Mental health disorder Substance use disorder Social History Social History Household Members: None Housing: House Are you a primary family day carer to a significant other at home: No Alcohol intake: current Alcohol intake frequency: does not drink Patient Tobacco Use Status: Never used Tobacco Advance Directives: Yes Advance Directives on File: Yes Advance Directives Date on File: 03/16/21 Current occupational status: disabled Sexual orientation: Straight/Heterosexual Gender identity: Female Physical Exam Vital Signs: Vital Signs: Last Vital Signs Temp 98.0 F 10/02/21 10:39 Pulse 88 10/02/21 10:39 Resp 17 10/02/21 10:39 BP 155/92 H 10/02/21 10:39 Pulse Ox 96 10/02/21 10:39 Body Mass Index 40.2 Const: Other: female crying in pain Nutritional Appearance: obese Orientation/consciousness: oriented to person and patient oriented x3 Limitations: no limitations HENMT: Head: Yes normal to inspection Ears: external ears normal General nose exam: Normal external nose present Mouth: Normal oral and palatal mucosa present and oropharynx normal Throat: Yes posterior oropharynx normal Eyes: General: appearance normal, both eyes and all related structures Neck: Other: supple Neck: Yes normal visual inspection Chest: Chest palpation & inspection: normal inspection of the chest Resp: Auscultation: clear to auscultation bilaterally Cardio: Jugular venous distension: no JVD Rate: regular rate Rhythm: regular rhythm Heart sounds: S1 normal heart sound present and S2 normal heart sound present GI: Inspection: Yes normal to inspection Palpation (GI): Soft to palpation, nontender and No hepatosplenomegaly present Auscultation: normal bowel sounds Back/Spine/Pelvis: Other: left sciatica with severe tenderness Skin: General skin exam: no rashes or lesions noted Neuro: General: oriented to person and patient oriented x3 Cranial nerves: Yes CN's II-XII intact bilaterally Motor exam (neuro): 5/5 motor strength present throughout Sensory Exam: No Sensory deficit (Neuro) Extrem: Other: Good DP and PT pulses, good dorsi and plantar flexion no neurologic deficits. General: Yes normal to inspection Psych: Appearance: grossly normal Course Reevaluation(s) Reevaluation #1: Feels much better will dc on gabapentin Time: 13:33 Discharge Plan Discharge Clinical Impression: Sciatica Patient Disposition: Home, Self-Care Instructions: Sciatica (ED) Prescriptions: New gabapentin 100 mg capsule 100 mg PO TID Qty: 30 RF: 0 No Action atorvastatin 20 mg tablet 20 mg PO DAILY 90 Days Qty: 90 RF: 0 carvedilol 25 mg tablet 25 mg PO BID 90 Days Qty: 180 RF: 1 cholecalciferol (vitamin D3) 50 mcg (2,000 unit) capsule 50 mcg PO DAILY Qty: 90 RF: 1 Xarelto 20 mg tablet 20 mg PO DAILY Qty: 90 RF: 2 [employer] Vaporub 4.7-1.2-2.6 % ointment 1 appl topical BID-QID PRN (Reason: cold symptoms) 30 Days Qty: 50 RF: 2 docusate sodium 100 mg capsule 100 mg PO BEDTIME Qty: 30 RF: 0 albuterol sulfate 90 mcg/actuation HFA aerosol inhaler 2 puff inhalation Q4-6H PRN (Reason: shortness of breath or wheezing) Qty: 6.7 RF: 0 albuterol sulfate 2.5 mg/0.5 mL solution for nebulization 5 mg inhalation Q4H PRN (Reason: shortness of breath or wheezing) Qty: 30 RF: 0 prednisone 20 mg tablet 40 mg PO DAILY 5 Days Qty: 10 RF: 0 fluticasone propionate [Flonase Allergy Relief] 50 mcg/actuation spray,suspension 2 spray intranasal DAILY Qty: 16 RF: 0 benzonatate 200 mg capsule 200 mg PO TID PRN (Reason: cough) Qty: 14 RF: 0 oxycodone 5 mg tablet 5 mg PO Q6H PRN (Reason: pain) Qty: 10 RF: 0 acetaminophen 500 mg tablet 1,000 mg PO TID PRN (Reason: pain) Qty: 20 RF: 0 (DME) blood pressure kit-extra large Kit See Rx Instructions .ROUTE .MEDSUPPLY Qty: 1 RF: 0 hydrochlorothiazide 12.5 mg tablet 12.5 mg PO DAILY 10 Days Qty: 10 RF: 0 benzonatate [Tessalon Perles] 100 mg capsule 100 mg PO TID PRN (Reason: cough) Qty: 30 RF: 0 amoxicillin-pot clavulanate [Augmentin] 875-125 mg tablet 1 tab PO Q12H 7 Days Qty: 14 RF: 0 dexamethasone 4 mg tablet 4 mg PO DAILY 9 Days Qty: 18 RF: 0 albuterol sulfate 2.5 mg /3 mL (0.083 %) solution for nebulization 2.5 mg inhalation QID PRN (Reason: shortness of breath or wheezing) 30 Days Qty: 180 RF: 0 zolpidem 10 mg tablet 10 mg PO BEDTIME PRN (Reason: Sleep) RF: 0 lorazepam 0.5 mg tablet 0.5 - 1 mg PO BID PRN (Reason: Anxiety) RF: 0 aripiprazole 5 mg tablet 5 mg PO DAILY RF: 0 buspirone 15 mg tablet 15 mg PO BID RF: 0 lisinopril 40 mg tablet 40 mg PO DAILY RF: 0 spironolactone 25 mg tablet 25 mg PO BID RF: 0 omeprazole 20 mg capsule,delayed release(DR/EC) 20 mg PO DAILY RF: 0 amlodipine 10 mg tablet 10 mg PO DAILY RF: 0 fluticasone propionate 110 mcg/actuation HFA aerosol inhaler 1 puff inhalation BID RF: 0 sertraline 100 mg tablet 100 mg PO DAILY RF: 0 cyclobenzaprine 10 mg tablet 10 mg PO TID PRN (Reason: muscle spasm) Qty: 21 RF: 0 methocarbamol 500 mg tablet 500 mg PO TID Qty: 90 RF: 0 Referrals: Alfredo Massey, [facility] [Primary Care Provider] - 1 week
[2021-10-02] MEDS: Ketorolac Tromethamine 60 MG/2 ML VIAL IM (11:45)
[2021-10-02] MEDS: Gabapentin 100 MG CAPSULE PO (11:45)
== END 2021-10-02 13:48 | disposition home or self-care (01) ==
PROVIDERS: Emergency Provider Emergency Medicine; PCP Nurse Practitioner Family
DX: M54.30 Sciatica, unspecified side (principal); I10 Essential (primary) hypertension; J45.909 Unspecified asthma, uncomplicated
CPT/HCPCS: 96372; 99283; 99284; J1885

== ENCOUNTER 2021-10-06 | Outpatient (REF) | payer OTHER, SELFPAY ==
--- NOTE | ~2021-10-06 | FL_ITS ---
EXAMINATION: XR FLUOROSCOPY WITH IMAGES CLINICAL INFORMATION: Sacroiliitis. COMPARISON: None. TECHNIQUE: Fluoroscopy performed by Dr. Mu Goldstein Fluoroscopy time: Not known DAP: Not known Images: 1 FINDINGS: Fluoroscopy guidance was provided on 10/06/2021 for pain management. Images are available now for interpretation. There is a needle positioned along the left SI joint with contrast opacifying the adjacent soft tissues. FL/FL guidance in treatment room IMPRESSION: Fluoroscopy guidance was provided to referring physician during pain management.
== END 2021-10-06 00:01 | disposition home or self-care (01) ==
LOC: HO.XRAY
PROVIDERS: Visit Provider Anesthesiology
DX: Z13.89 Encounter for screening for other disorder (principal)

== ENCOUNTER → 2021-10-06 08:55 | Outpatient (BNVA) | payer OTHER, SELFPAY | PROVIDERS: PCP Nurse Practitioner Family; Visit Provider Anesthesiology | DX: M46.1 Sacroiliitis, not elsewhere classified (principal); M53.3 Sacrococcygeal disorders, not elsewhere classified | CPT/HCPCS: J3300; Q9967 ==

== ENCOUNTER → 2021-10-21 11:36 | Outpatient (BNVA) | payer OTHER, SELFPAY | PROVIDERS: PCP Nurse Practitioner Family; Visit Provider Anesthesiology | DX: M53.3 Sacrococcygeal disorders, not elsewhere classified (principal); M46.1 Sacroiliitis, not elsewhere classified | CPT/HCPCS: 99212 ==

== ENCOUNTER → 2021-10-28 14:19 | Outpatient (BNVA) | payer OTHER, SELFPAY | PROVIDERS: PCP Nurse Practitioner Family; Visit Provider Anesthesiology | DX: M53.3 Sacrococcygeal disorders, not elsewhere classified (principal); M46.1 Sacroiliitis, not elsewhere classified | CPT/HCPCS: 99212 ==

== ENCOUNTER 2021-12-01 05:49 | Outpatient (REF) | payer OTHER, SELFPAY | END 2021-12-01 05:50 | disposition home or self-care (01) | LOC: HO.RADIR 05:49 | PROVIDERS: Visit Provider Anesthesiology | DX: Z13.89 Encounter for screening for other disorder (principal) | CPT/HCPCS: Q9967 ==

== ENCOUNTER → 2021-12-09 10:11 | Outpatient (BNVA) | payer OTHER, SELFPAY | PROVIDERS: PCP Nurse Practitioner Family; Visit Provider Anesthesiology | DX: M46.1 Sacroiliitis, not elsewhere classified (principal); M53.3 Sacrococcygeal disorders, not elsewhere classified; Z79.891 Long term (current) use of opiate analgesic | CPT/HCPCS: 99212 ==

== ENCOUNTER 2021-12-15 08:08 | Outpatient (REF) | payer OTHER, SELFPAY ==
--- NOTE | ~2021-12-15 | FL_ITS ---
EXAMINATION: XR FLUOROSCOPY WITH IMAGES CLINICAL INFORMATION: Sacroiliitis. COMPARISON: None. TECHNIQUE: Fluoroscopy performed by María Vicente. Fluoroscopy time: 0.4 minutes DAP: 2.65 Gycm2 Images: 4 FINDINGS: There are needles positioned adjacent to left L4 and L5 pedicles with contrast opacifying the soft tissues. The SI joints are symmetrical and unremarkable. No bony abnormality seen. FL/FL guidance in treatment room IMPRESSION: Fluoroscopy was provided to referring physician for pain management.
== END 2021-12-15 08:09 | disposition home or self-care (01) ==
LOC: HO.RADIR 08:08
PROVIDERS: Visit Provider Anesthesiology
DX: M46.1 Sacroiliitis, not elsewhere classified (principal); M47.816 Spondylosis without myelopathy or radiculopathy, lumbar region
CPT/HCPCS: 64493; 64494; 64495; Q9967

== ENCOUNTER → 2021-12-23 08:58 | Outpatient (BNVA) | payer OTHER, SELFPAY | PROVIDERS: PCP Nurse Practitioner Family; Visit Provider Anesthesiology | DX: M53.3 Sacrococcygeal disorders, not elsewhere classified (principal); M46.1 Sacroiliitis, not elsewhere classified | CPT/HCPCS: 99212 ==

== ENCOUNTER → 2022-01-06 09:50 | Outpatient (BNVA) | payer OTHER, SELFPAY | PROVIDERS: PCP Nurse Practitioner Family; Visit Provider Anesthesiology | DX: Z51.81 Encounter for therapeutic drug level monitoring (principal); F11.20 Opioid dependence, uncomplicated; M53.3 Sacrococcygeal disorders, not elsewhere classified; M46.1 Sacroiliitis, not elsewhere classified | CPT/HCPCS: 99212 ==

== ENCOUNTER → 2022-01-18 12:43 | Outpatient (BNVA) | payer OTHER, SELFPAY | PROVIDERS: PCP Nurse Practitioner Family; Referring Provider Nurse Practitioner Family; Visit Provider Internal Medicine Cardiovascular Disease | DX: I48.0 Paroxysmal atrial fibrillation (principal); I10 Essential (primary) hypertension; Z79.01 Long term (current) use of anticoagulants; Z99.89 Dependence on other enabling machines and devices | CPT/HCPCS: 99212 ==

== ENCOUNTER 2022-02-01 13:49 | Outpatient (REF) | payer OTHER, SELFPAY ==
--- NOTE | ~2022-02-01 | MM_ITS ---
EXAMINATION: MM SCREENING DIGITAL BREAST TOMOSYNTHESIS, BILATERAL CLINICAL INFORMATION: Screening. Asymptomatic. Benign excisional biopsy of the right by patient history. The lifetime risk of breast cancer based on the Tyrer-Cuzick Model is 4%. COMPARISON: Mammography: 01/29/2021, 01/24/2020, 01/11/2019, 01/06/2018 TECHNIQUE: Digital breast tomosynthesis is performed in both the craniocaudal and mediolateral oblique views along with computer-aided detection (CAD). Synthesized 2D images are generated from the tomosynthesis. Additional left CC and left MLO views are provided. FINDINGS: There are scattered areas of fibroglandular density (ACR BI-RADS breast composition Category b). There are no significant masses, abnormal calcifications, or other abnormalities. Parenchymal pattern is similar to prior studies. There is no developing density or architectural abnormality. The axilla and skin contours are unremarkable. No significant changes. MM/MM tomosynthesis screening BI IMPRESSION: No mammographic evidence of malignancy. ASSESSMENT: BI-RADS 1: Negative RECOMMENDATION: Routine annual mammography screening. This patient's information was entered into a reminder system with a target due date for their next mammogram.
== END 2022-02-01 13:50 | disposition home or self-care (01) ==
LOC: HO.MAMMO 13:49
PROVIDERS: PCP Nurse Practitioner Family; Visit Provider Nurse Practitioner Family
DX: Z12.31 Encounter for screening mammogram for malignant neoplasm of breast (principal)
CPT/HCPCS: 77063; 77067

== ENCOUNTER → 2022-02-03 13:13 | Outpatient (BNVA) | payer OTHER, SELFPAY | PROVIDERS: PCP Nurse Practitioner Family; Visit Provider Anesthesiology | DX: Z51.81 Encounter for therapeutic drug level monitoring (principal); F11.20 Opioid dependence, uncomplicated | CPT/HCPCS: 99211 ==

== ENCOUNTER 2022-02-16 06:09 | Outpatient (REF) | payer OTHER, SELFPAY ==
--- NOTE | ~2022-02-16 | FL_ITS ---
EXAMINATION: XR FLUOROSCOPY WITH IMAGES CLINICAL INFORMATION: Spondylosis. COMPARISON: None. TECHNIQUE: Fluoroscopy performed by María Vicente. Fluoroscopy time: 0.5 minutes DAP: 2.92 Gy-cm2 Images: 4 FINDINGS: There were 4 digital images obtained over the lumbar spine during the procedure. There is a needle positioned adjacent to the left S1 and left L5 pedicles opacifying the soft tissues adjacent to it. The visualized bones and the disc levels are unremarkable. FL/FL guidance in treatment room IMPRESSION: Fluoroscopy guidance was provided to the referring for pain management.
== END 2022-02-16 06:10 | disposition home or self-care (01) ==
LOC: HO.RADIR 06:09
PROVIDERS: Visit Provider Anesthesiology
DX: M47.816 Spondylosis without myelopathy or radiculopathy, lumbar region (principal); M75.50 Bursitis of unspecified shoulder; I10 Essential (primary) hypertension; I48.0 Paroxysmal atrial fibrillation; J45.909 Unspecified asthma, uncomplicated; F41.8 Other specified anxiety disorders; Z88.8 Allergy status to other drugs, medicaments and biological substances
CPT/HCPCS: 64493; 64494; 64495; Q9967

== ENCOUNTER 2022-02-23 09:11 | Outpatient (REF) | payer OTHER, SELFPAY ==
[2022-02-23 11:36] LABS: Appearance Urine CLEAR; Color Urine YELLOW; Glucose Urine UA 100 MG/DL (NEG); Leukocyte Esterase Urine NEG (NEG); Nitrite Urine NEG (NEG); UACC Culture Trigger NO; Urine Blood TRACE (NEG); Urine Ketones NEG (NEG); Urine Protein NEG (NEG-TRACE)
[2022-02-23 11:54] LABS: Alanine Aminotransferase 18 U/L (0-31); Albumin Level 3.8 g/dL (3.5-5.0); Alkaline Phosphatase 120 U/L (39-117); Anion Gap 13 (12-20); Aspartate Amino Transferase 16 U/L (5-31); Bilirubin Total 0.5 mg/dL (0.0-1.0); Blood Urea Nitrogen 15 mg/dL (9-16); Calcium 9.6 mg/dL (8.4-10.2); Carbon Dioxide 27 mmol/L (22-29); Chloride 106 mmol/L (96-108); Cholesterol 199 mg/dL; Estimated Glomerular Filt Rate 59; Glucose Fasting 128 mg/dL (60-99); HDL Cholesterol 57 mg/dL; LDL Cholesterol Calculated 128 mg/dl; Potassium 4.3 mmol/L (3.3-5.1); Sodium 142 mmol/L (135-145); Total Protein 6.8 g/dL (6.5-8.0); Triglycerides 71 mg/dL
[2022-02-23 11:57] LABS: WBC Urine 0 /HPF (0-4)
[2022-02-23 11:58] LABS: Bacteria Urine TRACE /LPF; Squamous Epithelial Cell Urine 2+ /LPF
[2022-02-23 12:18] LABS: TSH reflex Free T4 1.12 uIU/mL (0.32-4.0)
== END 2022-02-23 09:12 | disposition home or self-care (01) ==
LOC: HO.HMGCLDS 09:11
PROVIDERS: Visit Provider Nurse Practitioner Family
DX: I10 Essential (primary) hypertension (principal)
CPT/HCPCS: 36415; 80053; 80061; 81001; 84443

== ENCOUNTER → 2022-02-24 08:58 | Outpatient (BNVA) | payer OTHER, SELFPAY | PROVIDERS: PCP Nurse Practitioner Family; Visit Provider Anesthesiology | DX: M47.816 Spondylosis without myelopathy or radiculopathy, lumbar region (principal) | CPT/HCPCS: 99212 ==

== ENCOUNTER 2022-02-26 10:14 | Outpatient (REF) | payer OTHER, SELFPAY ==
[2022-02-26 11:51] LABS: Appearance Urine CLEAR; Color Urine YELLOW; Glucose Urine UA NEG (NEG); Leukocyte Esterase Urine NEG (NEG); Nitrite Urine NEG (NEG); PH 6.5 (5.0-8.0); Specific Gravity - Urine 1.015 (1.005-1.025); UACC Culture Trigger NO; Urine Blood TRACE (NEG); Urine Ketones NEG (NEG); Urine Protein NEG (NEG-TRACE)
[2022-02-26 12:16] LABS: Estimated Average Glucose 143 mg/dL; Hemoglobin A1c % 6.6 %
[2022-02-26 13:03] LABS: Bacteria Urine 1+ /LPF; Hyaline Casts Urine 0-2 /LPF; RBC Urine 0-2 /HPF (0); Squamous Epithelial Cell Urine 1+ /LPF; WBC Urine 0 /HPF (0-4)
== END 2022-02-26 10:15 | disposition home or self-care (01) ==
LOC: HO.HMGCLDS 10:14
PROVIDERS: PCP Nurse Practitioner Family; Visit Provider Nurse Practitioner Family
DX: R73.01 Impaired fasting glucose (principal)
CPT/HCPCS: 36415; 81001; 83036

== ENCOUNTER → 2022-03-03 13:21 | Outpatient (BNVA) | payer OTHER, SELFPAY | PROVIDERS: PCP Nurse Practitioner Family; Visit Provider Anesthesiology | DX: M47.816 Spondylosis without myelopathy or radiculopathy, lumbar region (principal); M16.12 Unilateral primary osteoarthritis, left hip; Z79.891 Long term (current) use of opiate analgesic | CPT/HCPCS: 99212 ==

== ENCOUNTER → 2022-03-31 13:51 | Outpatient (BNVA) | payer OTHER, SELFPAY | PROVIDERS: PCP Nurse Practitioner Family; Visit Provider Anesthesiology | DX: Z13.89 Encounter for screening for other disorder (principal) ==

== ENCOUNTER → 2022-04-28 13:50 | Outpatient (BNVA) | payer OTHER, SELFPAY | PROVIDERS: PCP Nurse Practitioner Family; Visit Provider Anesthesiology | DX: Z79.891 Long term (current) use of opiate analgesic (principal) | CPT/HCPCS: 99211 ==

== ENCOUNTER → 2022-05-26 13:51 | Outpatient (BNVA) | payer OTHER, SELFPAY | PROVIDERS: PCP Nurse Practitioner Family; Visit Provider Anesthesiology | DX: M47.816 Spondylosis without myelopathy or radiculopathy, lumbar region (principal); M16.12 Unilateral primary osteoarthritis, left hip; M46.1 Sacroiliitis, not elsewhere classified; M54.30 Sciatica, unspecified side; Z79.891 Long term (current) use of opiate analgesic | CPT/HCPCS: 99212 ==

== ENCOUNTER 2022-05-27 09:56 | Outpatient (REF) | payer OTHER, SELFPAY ==
[2022-05-27 11:57] LABS: Appearance Urine CLEAR; Color Urine YELLOW; Glucose Urine UA NEG (NEG); Leukocyte Esterase Urine NEG (NEG); Nitrite Urine NEG (NEG); UACC Culture Trigger NO; Urine Blood TRACE (NEG); Urine Ketones NEG (NEG); Urine Protein TRACE MG/DL (NEG-TRACE)
[2022-05-27 12:00] LABS: Alanine Aminotransferase 21 U/L (0-31); Albumin Level 3.7 g/dL (3.5-5.0); Alkaline Phosphatase 116 U/L (39-117); Anion Gap 12 (12-20); Aspartate Amino Transferase 16 U/L (5-31); Bilirubin Total 0.7 mg/dL (0.0-1.0); Blood Urea Nitrogen 19 mg/dL (9-16); Calcium 8.6 mg/dL (8.4-10.2); Carbon Dioxide 26 mmol/L (22-29); Chloride 109 mmol/L (96-108); Cholesterol 179 mg/dL; Estimated Glomerular Filt Rate > 60; Glucose Fasting 114 mg/dL (60-99); HDL Cholesterol 51 mg/dL; LDL Cholesterol Calculated 111 mg/dl; Potassium 3.8 mmol/L (3.3-5.1); Sodium 143 mmol/L (135-145); Total Protein 6.4 g/dL (6.5-8.0); Triglycerides 88 mg/dL
[2022-05-27 12:21] LABS: TSH reflex Free T4 1.72 uIU/mL (0.32-4.0)
[2022-05-27 13:15] LABS: Squamous Epithelial Cell Urine 2+ /LPF
[2022-05-27 13:16] LABS: Bacteria Urine TRACE /LPF; WBC Urine 0-2 /HPF (0-4)
[2022-05-27 13:17] LABS: Amorphous Sediment Urine TRACE /LPF; Mucus Urine TRACE /LPF; RBC Urine 0-2 /HPF (0)
[2022-05-27 16:08] LABS: Influenza A PCR NEGATIVE (Negative); Influenza B PCR NEGATIVE (Negative); Resp Syncy Virus RNA Qual PCR NEGATIVE (Negative); SARS COV2 PCR INHOUSE NEGATIVE (Negative)
== END 2022-05-27 09:57 | disposition home or self-care (01) ==
LOC: HO.HMGCLDS 09:56
PROVIDERS: Internal Medicine; Visit Provider Nurse Practitioner Family
DX: Z20.822 Contact with and (suspected) exposure to COVID-19 (principal); I10 Essential (primary) hypertension; R09.89 Other specified symptoms and signs involving the circulatory and respiratory systems
CPT/HCPCS: 0241U; 36415; 80053; 80061; 81001; 81003; 84443

== ENCOUNTER → 2022-06-10 08:23 | Outpatient (BNVA) | payer OTHER, SELFPAY | PROVIDERS: PCP Nurse Practitioner Family; Visit Provider Internal Medicine Gastroenterology | DX: K21.9 Gastro-esophageal reflux disease without esophagitis (principal); K64.8 Other hemorrhoids | CPT/HCPCS: 99212 ==

== ENCOUNTER 2022-06-14 11:00 | Outpatient (REF) | payer OTHER, SELFPAY ==
[2022-06-14 16:35] LABS: Urine Cytology See Pathology rpt
[2022-06-14 16:51] LABS: Appearance Urine CLEAR; Color Urine YELLOW; Glucose Urine UA NEG (NEG); Leukocyte Esterase Urine TRACE (NEG); Nitrite Urine NEG (NEG); Urine Blood TRACE (NEG); Urine Ketones NEG (NEG); Urine Protein TRACE MG/DL (NEG-TRACE)
[2022-06-14 17:16] LABS: Bacteria Urine TRACE /LPF; Mucus Urine 2+ /LPF; RBC Urine 0-2 /HPF (0); Squamous Epithelial Cell Urine 3+ /LPF
== END 2022-06-14 11:01 | disposition home or self-care (01) ==
LOC: HO.HMGCLDS 11:00
PROVIDERS: Visit Provider Nurse Practitioner Family
DX: R31.29 Other microscopic hematuria (principal)
CPT/HCPCS: 81001; 87086; 88112

== ENCOUNTER 2022-06-17 11:05 | Day surgery (SDC) | payer OTHER, SELFPAY ==
--- NOTE | ~2022-06-17 | FL_ITS ---
EXAMINATION: XR FLUOROSCOPY WITH IMAGES CLINICAL INFORMATION: Left L3-L4 peripheral nerve stimulation trial. COMPARISON: MR lumbar spine 07/20/2021 TECHNIQUE: Fluoroscopy performed by Dr. Mu Goldstein. Fluoroscopy time: 0.2 minutes. Cumulative Dose: 6.11 mGy. DAP: 1.66 Gy-cm2. Images: 1. FINDINGS: There is a needle/electrode overlying the left L4 pedicle. There are multilevel degenerative changes lumbar spine with vertebral spurring. FL/FL guidance in OR IMPRESSION: Fluoroscopy for pain management procedure.
--- NOTE | 2022-06-17 11:54 | P.OP_ITS ---
Operative Note Operative Note Date of Service: 06/17/22 Narrative: ?Percutaneous implantation of peripheral nerve stimulation Sprint system. After the risks, benefits and alternatives were discussed with the patient and informed consent was obtained, patient was placed in the prone position and padded to foster comfort. Time out was performed delineating correct site and side of the procedure , name and of the patient, patient participated in time out procedure. The patient decided to start his treatment with right side stimulation where his pain is most severe. Sterily draped C-arm was brought over the operating field and clear picture of the L4 lamina on the left was delineated on the screen. The upper central portion of the lamina was chosen as a target of the neetle tip incertion . After identifying and marking the intended target, the skin around the planned entry point and the subcutaneous tissues were injected with local anesthetic forming skin wheal.. A percutaneous sleeve and stimulating probe lead introduction system were assembled, inserted and advanced through the skin wheal to the? point of interest under C-arm view in tunnel vision fashion, the introducer needle was delivered to a location in proximity to the nerve. Multiple stimulation parameters were used to deliver stimulation to the? nerve in concert with stimulating at multiple positions around the nerve. Nerve target acquisition was confirmed noting generation of? in the? corresponding to the nerve being stimulated. Various electrical parameter combinations were tested, and the lead location was adjusted (physically relocated) until the patient indicated? overlapping the distribution of the patient?s typical region of pain. The stimulating probe was removed from the introducer and a percutaneous lead was guided through the needle and delivered to a location in similar proximity to the nerve. Final location was verified with electrical stimulation. The introducer needle was removed, and the exposed end of the percutaneous lead was attached to an external stimulator unit. Various electrical parameter combinations were again tested until the patient indicated paresthesia or muscle tension overlapping the distribution of the patient?s typical region of pain. Af ter confirming that lead impedance was in the normal range, the external unit was detached, the needle was removed, and the lead was anchored at the skin. The lead was threaded into the connector block and electrical continuity and desired patient response was confirmed. The connector block was attached to the external stimulator unit. The site was covered with a sterile occlusive dressing and a? image was taken to document final placement. Upon completion of the procedure the patient was taken outside the OR where he recovered uneventfully he went home without immediate complications.
--- NOTE | 2022-06-17 11:58 | MHC.SHP ---
Pre-Procedural Eval Section A Date of Service: 06/17/22 The patient is an INPATIENT: No Changes since office visit: Yes Patient answered all questions The History & Physical has been completed within 30 days and I have reviewed it.: No Section B Chief Complaint: spondylosis Details of Present Illness: As above Relevant Family History (Specify if Yes): No Relevant Social History: None Present Medications: see Short Stay Collaborative assessment Medical History: No relevant PMH History of Previous Operations: No relevant previous surgery Allergies: Allergies Allergy/AdvReac Type Severity Reaction Status Date / Time ibuprofen [IBUPROFEN] Allergy Mild RASH, Verified 06/10/22 08:28 hives, hives Review of Systems Sugical H&P ROS: Negative: Cardiovascular, Respiratory, Neurological, Psychiatric, Hem-Onc, Allergic/Immunologic, Gastrointestinal, Genitourinary, Musculoskeletal, Integumentary, Endocrine and Eyes/Ears/Nose/Throat and Yes, Specify: Constitution (Morbid obesity) Exam Surgical H&P Exam: Normal: HEENT, Normal: Heart, Normal: Lungs, Normal: Extremities, Normal: Skin and Normal: Neurological and Significant Findings: Abdomen (Enlarged secondary to fat) Plan Diagnosis/Plan: Unchanged I have reviewed the history and physical and performed a pertinent physical examination on my patient. No changes have occurred unless specified.
[2022-06-17 12:21] VITALS: BP 157/69; PULSE 67; RESP 18; TEMP 36.3; O2SAT 99; BMI 40.2
--- NOTE | 2022-06-17 14:13 | P.BOP_ITS ---
Brief Operative Note Date of Service: 06/17/22 Pre-op diagnosis: Spondylosis lumbar spine Post-op diagnosis: same Procedure: SPRINT peripheral nerve stimulation L4 Implants: 8 weeks implant stimulating wire to the L4 lamina on the left. Surgeon: Mu Goldstein MD Anesthesia: MAC Was an Broiler Chef Or Cook used for this Procedure?: No Estimated blood loss (mL): 4 Condition: stable Disposition: PACU
[2022-06-17 14:16] VITALS: BP 185/80; PULSE 65; RESP 20; TEMP 36.4; O2SAT 100
[2022-06-17 14:31] VITALS: BP 181/93; PULSE 64; RESP 15; O2SAT 100
[2022-06-17 14:46] VITALS: BP 171/71; PULSE 69; RESP 16; TEMP 36.4; O2SAT 99
== END 2022-06-17 15:32 | disposition home or self-care (01) ==
PROVIDERS: PCP Nurse Practitioner Family; Visit Provider Anesthesiology
PROC: (CPT 64555; principal; 2022-06-17 12:30)
DX: M47.816 Spondylosis without myelopathy or radiculopathy, lumbar region (principal); M16.12 Unilateral primary osteoarthritis, left hip; M46.1 Sacroiliitis, not elsewhere classified; M54.30 Sciatica, unspecified side; G47.33 Obstructive sleep apnea (adult) (pediatric); I48.0 Paroxysmal atrial fibrillation; F41.1 Generalized anxiety disorder; I10 Essential (primary) hypertension; R44.0 Auditory hallucinations; J45.909 Unspecified asthma, uncomplicated; E66.01 Morbid (severe) obesity due to excess calories; Z68.41 Body mass index [BMI] 40.0-44.9, adult; H02.60 Xanthelasma of unspecified eye, unspecified eyelid
CPT/HCPCS: 64555; C1778; J0690; J2250

== ENCOUNTER → 2022-06-23 10:13 | Outpatient (BNVA) | payer OTHER, SELFPAY | PROVIDERS: PCP Nurse Practitioner Family; Visit Provider Anesthesiology | DX: Z51.81 Encounter for therapeutic drug level monitoring (principal); F11.20 Opioid dependence, uncomplicated; M47.816 Spondylosis without myelopathy or radiculopathy, lumbar region; M16.12 Unilateral primary osteoarthritis, left hip | CPT/HCPCS: 99212 ==

== ENCOUNTER → 2022-07-21 10:31 | Outpatient (BNVA) | payer OTHER, SELFPAY | PROVIDERS: PCP Nurse Practitioner Family; Visit Provider Anesthesiology | DX: Z51.81 Encounter for therapeutic drug level monitoring (principal); F11.20 Opioid dependence, uncomplicated; M47.816 Spondylosis without myelopathy or radiculopathy, lumbar region; M16.12 Unilateral primary osteoarthritis, left hip | CPT/HCPCS: 99212 ==

== ENCOUNTER → 2022-08-16 10:21 | Outpatient (BNVA) | payer OTHER, SELFPAY | PROVIDERS: PCP Nurse Practitioner Family; Visit Provider Anesthesiology | DX: M47.816 Spondylosis without myelopathy or radiculopathy, lumbar region (principal); M16.12 Unilateral primary osteoarthritis, left hip | CPT/HCPCS: 99212 ==

== ENCOUNTER → 2022-08-18 11:27 | Outpatient (BNVA) | payer OTHER, SELFPAY | PROVIDERS: PCP Nurse Practitioner Family; Visit Provider Anesthesiology | DX: Z51.81 Encounter for therapeutic drug level monitoring (principal); F11.20 Opioid dependence, uncomplicated | CPT/HCPCS: 99211 ==

== ENCOUNTER → 2022-09-01 14:51 | Outpatient (BNVA) | payer OTHER, SELFPAY | PROVIDERS: PCP Nurse Practitioner Family; Visit Provider Anesthesiology | DX: Z51.81 Encounter for therapeutic drug level monitoring (principal); F11.20 Opioid dependence, uncomplicated | CPT/HCPCS: 99211 ==

== ENCOUNTER → 2022-09-16 08:49 | Outpatient (BNVA) | payer OTHER, SELFPAY | PROVIDERS: PCP Nurse Practitioner Family; Visit Provider Internal Medicine Gastroenterology | DX: R68.81 Early satiety (principal); K59.09 Other constipation; K21.9 Gastro-esophageal reflux disease without esophagitis; R10.33 Periumbilical pain; K22.70 Barrett's esophagus without dysplasia; D12.6 Benign neoplasm of colon, unspecified | CPT/HCPCS: Q3014 ==

== ENCOUNTER 2022-09-22 10:29 | Emergency (ER) | payer OTHER, SELFPAY ==
--- NOTE | ~2022-09-22 | CT_ITS ---
EXAMINATION: CT ABDOMEN AND PELVIS WITH CONTRAST CLINICAL INFORMATION: Left lower quadrant pain COMPARISON: CT abdomen pelvis 05/08/2021 TECHNIQUE: Multidetector volumetric images were obtained from the superior aspect of the liver through the pubic symphysis following administration 85 mL of Omnipaque 350 intravenous contrast. Sagittal and coronal reformatted images were obtained on the technologist's workstation. Oral contrast: No This CT examination was performed using dose optimization techniques as appropriate, variously including the following: *Automated exposure control *Adjustment of mA and/or kV according to patient size (this includes techniques or standardized protocols for targeted exams where dose is matched to indication/reason for exam; i.e. extremities or head) *Use of iterative reconstruction technique DLP: 866 mGy-cm FINDINGS: LUNG BASES: The visualized lung bases are unremarkable. LIVER, GALLBLADDER, AND BILIARY TREE: The liver is normal in size, shape, and attenuation. No focal hepatic lesion or biliary ductal dilatation is present. The gallbladder is not present. PANCREAS: Unremarkable. SPLEEN: Unremarkable. ADRENAL GLANDS: Unremarkable. KIDNEYS AND URETERS: The kidneys are normal in size, shape, and attenuation. No hydronephrosis, hydroureter, or calculi seen. No perinephric stranding. BLADDER: Unremarkable. GASTROINTESTINAL TRACT: At the level of the mid descending colon, there is an inflammatory process seen in the fat anterior to the colon with a fatty core surrounded by inflammatory change. These findings are consistent with acute epiploic appendicitis. At the time of the prior CT scan in 2020, these findings were not present. No significant colonic diverticula are seen. The small and large bowel are otherwise unremarkable. The appendix is unremarkable. ABDOMINAL WALL: No significant hernia is appreciated. LYMPH NODES: No retroperitoneal lymphadenopathy. VASCULAR: Unremarkable. The left renal vein is retroaortic. PELVIC VISCERA: Surgically absent OSSEOUS STRUCTURES: Unremarkable. CT/CT abdomen pelvis w IV con IMPRESSION: Acute epiploic appendicitis. Fleischner guidelines were followed.
[2022-09-22 10:48] VITALS: BP 168/59; PULSE 79; RESP 18; TEMP 36.6; O2SAT 98; BMI 40.2
[2022-09-22 11:11] LABS: MANUAL DIFF FLAG NO
[2022-09-22 11:15] LABS: Basophils Percent Auto 0.4 % (0-2); Eosinophils Absolute Auto 0.2 X10*3/uL (0.0-0.4); Eosinophils Percent Auto 2.4 % (0-4); Hematocrit 40.7 % (37.0-47.0); Imm Gran Abs Auto 0.02 X10*3/uL (0.00-0.03); Imm Gran Pct Auto 0.3 % (0.0-0.4); Lymphocytes Absolute Auto 1.5 X10*3/uL (1.2-4.9); Lymphocytes Percent Auto 19.2 % (20-40); Mean Corpuscular HGB Conc 31.9 g/dl (31.0-35.0); Mean Corpuscular Hemoglobin 26.1 pg (27.0-33.0); Mean Corpuscular Volume 81.7 fL (80.0-98.0); Mean Platelet Volume 10.9 fL (9.4-12.3); Monocytes Absolute Auto 0.4 X10*3/uL (0.1-1.2); Monocytes Percent Auto 4.7 % (2-11); Neutrophils Absolute Auto 5.6 x10*3/uL (2.0-8.3); Platelet Count 278 X10*3/uL (160-400); Red Blood Count 4.98 X10*6/uL (4.20-5.50); White Blood Count 7.6 X10*3/uL (4.8-10.8)
[2022-09-22 11:33] LABS: Anion Gap 16 (12-20); Blood Urea Nitrogen 18 mg/dL (9-16); Calcium 8.9 mg/dL (8.4-10.2); Carbon Dioxide 22 mmol/L (22-29); Chloride 107 mmol/L (96-108); Creatinine Clr Calc Pharmacy 71.2; Estimated Glomerular Filt Rate > 60; Glucose Random 136 mg/dL (60-115); Potassium 4.4 mmol/L (3.3-5.1); Sodium 141 mmol/L (135-145)
[2022-09-22 16:46] VITALS: BP 178/79; PULSE 70; RESP 16; TEMP 36.3; O2SAT 98
[2022-09-22 17:22] LABS: Appearance Urine Clear; Color Urine Yellow; Glucose Urine UA Negative (Negative); Leukocyte Esterase Urine Negative (Negative); Nitrite Urine Negative (Negative); PH 5.5 (5.0-9.0); Specific Gravity - Urine 1.025 (1.005-1.025); Urine Blood Negative (Negative); Urine Ketones Negative (Negative); Urine Protein Trace mg/dL (Neg-Trace)
[2022-09-22 18:28] LABS: Alanine Aminotransferase 21 U/L (0-31); Albumin Level 3.7 g/dL (3.5-5.0); Alkaline Phosphatase 127 U/L (39-117); Aspartate Amino Transferase 17 U/L (5-31); Bilirubin Direct 0.2 mg/dL (0.0-0.5); Bilirubin Total 0.7 mg/dL (0.0-1.0); Lipase 16 U/L (8-78); Total Protein 6.4 g/dL (6.5-8.0)
[2022-09-22 19:32] VITALS: BP 178/83; PULSE 76; RESP 18; O2SAT 99
[2022-09-22] MEDS: iohexoL 350 MG/ML 100 ML INFUS..BTL IV (20:50)
--- NOTE | 2022-09-22 20:53 | ED_ITS ---
HPI - Abdominal Pain General Chief Complaint: Abdominal Pain Stated Complaint: l lower side pain Time Seen by Provider: 09/22/22 20:06 Source: patient Mode of arrival: ambulatory Limitations: no limitations History of Present Illness HPI narrative: This is a 57-year-old female history of hypertension, constipation, obesity, diabetes presenting to the emergency department with 3 days of left lower quadrant pain progressively worsening. Patient describes the pain currently as a 6/10, intermittent in nature described as stabbing and nonradiating. Patient tells me she has never had anything like this before. She reports it is worse when she coughs or goes over bumps. Denies fevers, chills, changes in urin ation, changes in bowel habits, chest pain, shortness of breath, nausea, vomiting. No history of diverticulitis, denies trauma to the area. Patient able to eat and drink without difficulties. Related Data Home Medications Medication Instructions Recorded Confirmed aripiprazole 5 mg tablet 5 mg PO DAILY 08/23/20 09/16/22 buspirone 15 mg tablet 15 mg PO BID 08/23/20 09/16/22 spironolactone 25 mg tablet 25 mg PO BID 08/23/20 09/16/22 sertraline 100 mg tablet 100 mg PO DAILY 05/26/21 09/16/22 naloxone 4 mg/actuation nasal 4 mg intranasal Q2M PRN as directed 04/28/22 09/16/22 spray (Narcan) buspirone 30 mg tablet 0 mg PO DAILY PRN as directed 06/10/22 09/16/22 zolpidem 5 mg tablet 5 mg PO BEDTIME PRN Sleep 06/10/22 09/16/22 Previous Rx's Medication Instructions Recorded blood pressure kit-extra large #1 ea 01/12/21 atorvastatin 20 mg tablet 20 mg PO DAILY 90 days #90 tabs 01/15/21 carvedilol 25 mg tablet 25 mg PO BID 90 days #180 tabs 03/30/21 docusate sodium 100 mg capsule 100 mg PO BEDTIME #30 caps 05/08/21 albuterol sulfate 2.5 mg/0.5 mL 5 mg inhalation Q4H PRN shortness 09/23/21 solution for nebulization of breath or wheezing #30 ea albuterol sulfate 90 mcg/actuation 2 puff inhalation Q4-6H PRN 09/23/21 aerosol inhaler shortness of breath or wheezing #6.7 grams fluticasone propionate 50 2 spray intranasal DAILY #16 grams 09/23/21 mcg/actuation nasal spray,suspension (Flonase Allergy Relief) diclofenac sodium 1 % topical gel 4 g topical QID 30 days #100 grams 12/09/21 (Arthritis Pain (diclofenac)) rivaroxaban 20 mg tablet (Xarelto) 20 mg PO DAILY #90 tabs 02/28/22 clonidine HCl 0.1 mg tablet 0.1 mg PO BID 30 days #60 tabs 04/12/22 incontinence pad, liner, disp #39 ea 04/12/22 hydrochlorothiazide 25 mg tablet 25 mg PO DAILY 30 days #30 tabs 04/29/22 fluticasone propionate 110 1 puff inhalation BID 30 days #12 06/02/22 mcg/actuation HFA aerosol inhaler grams hydrocortisone 2.5 % topical cream 1 appl SD BID-QID PRN hemorrhoids 06/10/22 with perineal applicator 2 weeks #30 grams omeprazole 20 mg capsule,delayed 20 mg PO BID 60 days #120 caps 06/10/22 release psyllium husk 2.6 gram/4.1 gram 1 tbsp PO BID 60 days #480 grams 06/10/22 oral powder amlodipine 10 mg tablet 10 mg PO DAILY 90 days #90 tabs 08/05/22 lisinopril 40 mg tablet 40 mg PO DAILY 90 days #90 tabs 08/05/22 tramadol 50 mg tablet 50 mg PO TID PRN pain #20 tabs 08/06/22 cholecalciferol (vitamin D3) 50 50 mcg PO DAILY #90 caps 08/16/22 mcg (2,000 unit) capsule tizanidine 4 mg tablet 4 mg PO TID PRN for pain #270 tabs 08/27/22 oxycodone 5 mg tablet 5 mg PO BID PRN pain 30 days #45 09/01/22 tabs ondansetron 4 mg disintegrating 4 mg sublingual Q12H PRN for 09/04/22 tablet nausea/vomiting 30 days #60 tabs hydroxyzine HCl 10 mg tablet 10 mg PO TID PRN for itch #90 tabs 09/21/22 levofloxacin 750 mg tablet 750 mg PO DAILY 5 days #5 tabs 09/22/22 metronidazole 500 mg tablet 500 mg PO BID 5 days #10 tabs 09/22/22 Allergies Allergy/AdvReac Type Severity Reaction Status Date / Time ibuprofen [IBUPROFEN] Allergy Mild RASH, Verified 09/01/22 15:05 hiveschristine Review of Systems Review of Systems Constitutional : No Weight loss, No Fever, No Chills, No Fatigue, No Malaise ENT/Mouth : No sore throat, No Rhinorrhea Eyes: No Eye Pain, No Swelling, No Redness Cardiovascular : No Chest Pain, No SOB, No Dyspnea on Exertion, No Orthopnea, No Edema, No Palpitations Respiratory : No Cough, No Sputum, No Wheezing Gastrointestinal : No Nausea, No Vomiting, No Diarrhea, No Constipation, + abdominal Pain, No Hematochezia, No Melena Genitourinary : No Dysuria, No Urinary Frequency, No Hematuria, Musculoskeletal : No joint pain, No Myalgias, No Joint Swelling Skin : No Skin Lesions, No rash Neuro : No Weakness, No Numbness, No Dizziness, No Headache Psych : No Anxiety/Panic, No Depression All other systems reviewed and are negative Yes all other systems are reviewed and are negative [facility] Past Medical History Attestation statement: The following information was validated with the patient. Source: old records reviewed and nursing notes reviewed Medical History Adenomatous polyp of colon Afib Anxiety Asthma Auditory hallucinations Benign neoplasm breast skin Bursitis, shoulder Calcaneal spur Cervical pain (neck) Depression Disc degeneration, lumbar Dyspepsia Esophagitis GERD (gastroesophageal reflux disease) HTN (hypertension) Hyperlipidemia Hypertensive urgency Impaired glucose tolerance Morbid obesity WENDY (obstructive sleep apnea) Osteoarthritis of left hip PAF (paroxysmal atrial fibrillation) Palpitations Sacroiliac joint dysfunction of right side Sacroiliitis Spondylosis without myelopathy or radiculopathy, lumbar region Swelling of both lower extremities Xanthelasma Surgical History H/O esophagogastroduodenoscopy (09/01/15) H/O esophagogastroduodenoscopy History of esophagogastroduodenoscopy (06/14/12) History of hysterectomy History of removal of cyst Hx of cholecystectomy Hx of colonoscopy Status post Margarita fundoplication (10/27/12) Family History Family History Father CVD (cardiovascular disease) HTN (hypertension) Diabetes Mother HTN (hypertension) Diabetes CVD (cardiovascular disease) Brother Pacemaker Maternal Grandmother Throat cancer Brother No problems noted. Daughter Hx LEEP (loop electrosurgical excision procedure), cervix, Other Mental health disorder Substance use disorder Social History Social History Household Members: None Housing: House Are you a primary assurance services manager health care to a significant other at home: No Alcohol intake: current Alcohol intake frequency: former alcohol drinker Patient Tobacco Use Status: Never used Tobacco e-Cigarette/Vaping Use: Never Used Second Hand Smoke Exposure: No Advance Directives: Yes Advance Directives on File: Yes Advance Directives Date on File: 03/16/21 Current occupational status: disabled Sexual orientation: Straight/Heterosexual Gender identity: Female Cognitive needs: No Hearing needs: No Vision needs: No Physical Exam ED Vital Signs: Vital Signs - 24 hr 09/22/22 10:48 09/22/22 16:46 09/22/22 19:32 Temperature 97.8 F 97.4 F Pulse Rate 79 70 76 Respiratory Rate 18 16 18 Blood Pressure 168/59 H 178/79 H 178/83 H Pulse Oximetry 98 98 99 Oxygen Delivery Method Room Air Room Air 09/22/22 21:56 09/22/22 22:37 Temperature 97.6 F Pulse Rate 69 Respiratory Rate 16 18 Blood Pressure 178/73 H Pulse Oximetry 98 Oxygen Delivery Method Room Air BMI result Body Mass Index 40.2 Vital signs stable Appearance: Alert.? Oriented X3.? No acute distress.? Head: Normocephalic, atraumatic, no step-offs or deformities Eyes: Pupils equal, round and reactive to light CVS: Normal heart rate and rhythm.? Pulses normal.? Respiratory: No respiratory distress.? Breath sounds normal.? Abdomen: Soft and + tenderness to left lower quadrant.? Skin: Skin warm and dry.? Normal skin color.? Normal skin turgor.? Extremities: No lower extremity edema.? No calf ttp. 5/5 strength to bilateral upper and lower extremities Neuro: Oriented X 3.? No motor deficit.? No sensory deficit. CN 2-12 intact Course Course Course Narrative: Discussed this case w/ my attending who recommends dc home with pain control. FU with PCP and strict return percautions Reevaluation(s) Reevaluation #1: CBC within normal limits. Chemistry with no acute findings requiring intervention. urine clean without infection. Imaging pending Time: 21:00 Reevaluation #2: CT of the abdomen pelvis showing acute epiploic appendicitis, likely appendagitis. Will reach out to surgery for input. Time: 22:10 Reevaluation #3: Reached out to General surgery who reccomends pain meds and po atbx for 5 days. Time: 22:17 Additional Reevaluation(s): at this time patient will be discharged home advised return with new or worsening symptoms, educated on worrisome signs and symptoms and when to return. Comfortable discharge home with prompt PCP and general surgery follow-up. MDM - Abdominal Pain MDM Narrative Medical decision making narrative: 2024 Jaskaran is a 57-year-old female presenting with left lower quadrant pain x3 days progressively worsening. No history of diverticulitis. Physical exam with significant tenderness to left lower quadrant. Concerns for diverticulitis or perforated diverticulum. Possibly appendicitis. Unlikley cholecystitis, kidney stone, UTI or cystitis. Plan at this time is to obtain labs, imaging, urine. Medical Records Attestation: I reviewed the patient's medical records. Lab Data Attestation: I reviewed the patient's lab results. Result diagrams: 09/22/22 11:07 09/22/22 11:07 Labs: Lab Results 09/22/22 09/22/22 09/22/22 Range/Units 11: 11:07 16:56 WBC 7.6 (4.8-10.8) X10*3/uL RBC 4.98 (4.20-5.50) X10*6/uL Hgb 13.0 (12.0-16.0) g/dl Hct 40.7 (37.0-47.0) % MCV 81.7 (80.0-98.0) fL MCH 26.1 L (27.0-33.0) pg MCHC 31.9 (31.0-35.0) g/dl RDW 14.0 (11.0-16.0) % Plt Count 278 D (160-400) X10*3/uL MPV 10.9 (9.4-12.3) fL Immature Gran % (Auto) 0.3 (0.0-0.4) % Neut % (Auto) 73.0 (45-73) % Lymph % (Auto) 19.2 L (20-40) % [place] % (Auto) 4.7 (2-11) % Eos % (Auto) 2.4 (0-4) % Baso % (Auto) 0.4 (0-2) % Lymph # (Auto) 1.5 (1.2-4.9) X10*3/uL [place] # (Auto) 0.4 (0.1-1.2) X10*3/uL Eos # (Auto) 0.2 (0.0-0.4) X10*3/uL Baso # (Auto) 0.0 (0.0-0.2) X10*3/uL Abs Immat Gran (auto) 0.02 (0.00-0.03) X10*3/uL Absolute Neuts (auto) 5.6 (2.0-8.3) x10*3/uL Absolute Nucleated RBC 0.000 (0.0-0.012) X10*3/uL Nucleated RBC % (auto) 0.0 (0.0-0.2) /100WBC Sodium 141 (135-145) mmol/L Potassium 4.4 (3.3-5.1) mmol/L Chloride 107 (96-108) mmol/L Carbon Dioxide 22 (22-29) mmol/L Anion Gap 16 (12-20) BUN 18 H (9-16) mg/dL Creatinine 0.95 (0.5-1.4) mg/dL Estim Creat Clear Calc 71.2 Estimated GFR > 60 Random Glucose 136 H (60-115) mg/dL Calcium 8.9 (8.4-10.2) mg/dL Total Bilirubin 0.7 (0.0-1.0) mg/dL Direct Bilirubin 0.2 (0.0-0.5) mg/dL AST 17 (5-31) U/L ALT 21 (0-31) U/L Alkaline Phosphatase 127 H (39-117) U/L Total Protein 6.4 L (6.5-8.0) g/dL Albumin 3.7 (3.5-5.0) g/dL Lipase 16 (8-78) U/L Urine Color Yellow Urine Appearance Clear Urine pH 5.5 (5.0-9.0) Ur Specific [place] 1.025 (1.005-1.025) Urine Protein Trace (Neg-Trace) mg/dL Urine Glucose (UA) Negative (Negative) mg/dL Urine Ketones Negative (Negative) mg/dL Urine Blood Negative (Negative) Urine Nitrite Negative (Negative) Ur Leukocyte Esterase Negative (Negative) Critical Care Time Critical Care Time Critical Care Time: Yes Total Critical Care Time: 35 Attestation: I attest to this time spent taking care of the patient, obtaining history, physical, reviewing labs, imaging, speaking to my attending, speaking to specialist. Discharge Plan Discharge Clinical Impression: Epiploic appendagitis, Abdominal pain Patient Disposition: Home, Self-Care Instructions: Abdominal Pain (ED) Additional Instructions: Take your medications as prescribed. If you were prescribed antibiotics today, it is important that you take your medication to their entirety, do not skip any doses, do not finish them early. Follow-up with your primary care provider this week. Pain continues please follow-up with general surgery. Information below. Return to the emergency department with new or worsening symptoms. Such as fevers, chills, chest pain, shortness of breath, nausea, vomiting, dizziness, headache, vision changes, lethargy , inability to eat, drink, changes in bowel habits or changes in stool. In case of emergency call 911 if not otherwise contraindicated you can take ibuprofen every 6 hours and Tylenol every 4 as needed for pain or discomfort. If you are allergic to 1 of them please just take the 1 year not allergic to. If you have other pain medication at home you can take that as well like your oxycodone. Levaquin is an antibiotic that has been sent to your pharmacy, it is part of a class of antibiotic called fluoroquinolones, these antibiotics have a particular warning on them of tendon rupture, if you experience any pain in your tendons or joints, please seek medical attention immediately. Please refrain from physical activity while taking these and until medically cleared. Prescriptions: New metronidazole 500 mg tablet 500 mg PO BID 5 Days Qty: 10 0RF levofloxacin 750 mg tablet 750 mg PO DAILY 5 Days Qty: 5 0RF No Action atorvastatin 20 mg tablet 20 mg PO DAILY 90 Days Qty: 90 0RF carvedilol 25 mg tablet 25 mg PO BID 90 Days Qty: 180 1RF Xarelto 20 mg tablet 20 mg PO DAILY Qty: 90 2RF (DME) incontinence pad, liner, disp Pad See Rx Instructions .Route Qty: 39 0RF Rx Instructions: use daily for incont hydrochlorothiazide 25 mg tablet 25 mg PO DAILY 30 Days Qty: 30 2RF fluticasone propionate 110 mcg/actuation HFA aerosol inhaler 1 puff inhalation BID 30 Days Qty: 12 1RF lisinopril 40 mg tablet 40 mg PO DAILY 90 Days Qty: 90 1RF amlodipine 10 mg tablet 10 mg PO DAILY 90 Days Qty: 90 1RF cholecalciferol (vitamin D3) 50 mcg (2,000 unit) capsule 50 mcg PO DAILY Qty: 90 1RF tizanidine 4 mg tablet 4 mg PO TID PRN (Reason: for pain) Qty: 270 8RF oxycodone 5 mg tablet 5 mg PO BID PRN (Reason: pain) 30 Days Qty: 45 0RF ondansetron 4 mg tablet,disintegrating 4 mg sublingual Q12H PRN (Reason: for nausea/vomiting) 30 Days Qty: 60 1RF hydroxyzine HCl 10 mg tablet 10 mg PO TID PRN (Reason: for itch) Qty: 90 8RF docusate sodium 100 mg capsule 100 mg PO BEDTIME Qty: 30 0RF albuterol sulfate 90 mcg/actuation HFA aerosol inhaler 2 puff inhalation Q4-6H PRN (Reason: shortness of breath or wheezing) Qty: 6.7 0RF albuterol sulfate 2.5 mg/0.5 mL solution for nebulization 5 mg inhalation Q4H PRN (Reason: shortness of breath or wheezing) Qty: 30 0RF fluticasone propionate [Flonase Allergy Relief] 50 mcg/actuation spray,suspension 2 spray intranasal DAILY Qty: 16 0RF Rx Instructions: administer into each nostril (DME) blood pressure kit-extra large Kit See Rx Instructions .ROUTE .MEDSUPPLY Qty: 1 0RF Rx Instructions: As directed clonidine HCl 0.1 mg tablet 0.1 mg PO BID 30 Days Qty: 60 1RF tramadol 50 mg tablet 50 mg PO TID PRN (Reason: pain) Qty: 20 0RF Rx Instructions: sedating no driving aripiprazole 5 mg tablet 5 mg PO DAILY buspirone 15 mg tablet 15 mg PO BID spironolactone 25 mg tablet 25 mg PO BID sertraline 100 mg tablet 100 mg PO DAILY buspirone 30 mg tablet 0 mg PO DAILY PRN (Reason: as directed) zolpidem 5 mg tablet 5 mg PO BEDTIME PRN (Reason: Sleep) hydrocortisone 2.5 % cream with perineal applicator 1 appl SD BID-QID PRN (Reason: hemorrhoids) 14 Days Qty: 30 1RF omeprazole 20 mg capsule,delayed release(DR/EC) 20 mg PO BID 60 Days Qty: 120 3RF psyllium husk 2.6 gram/4.1 gram powder 1 tbsp PO BID 60 Days Qty: 480 2RF Rx Instructions: mix into at least 8 oz of water or juice before administering naloxone [Narcan] 4 mg/actuation spray,non-aerosol 4 mg intranasal Q2M PRN (Reason: as directed) Rx Instructions: spray 1 dose into ONE nostril; alternate nostrils w each dose until help arrives diclofenac sodium [Arthritis Pain (diclofenac)] 1 % gel 4 g topical QID 30 Days Qty: 100 11RF Rx Instructions: apply to single knee, ankle, foot; for foot includes sole/toes/top of foot Referrals: [facility] [place] General Surgeons [Provider Group] - 1 week Alfredo Massey FNP-BC [Primary Care Provider] - 2 days Stand Alone Forms: Work/School Release
[2022-09-22] MEDS: Acetaminophen 325 MG TABLET 975 MG PO (21:06)
[2022-09-22 21:56] VITALS: BP 178/73; PULSE 69; RESP 16; TEMP 36.4; O2SAT 98
[2022-09-22 22:37] VITALS: RESP 18
[2022-09-22] MEDS: metroNIDAZOLE 500 MG TABLET PO (22:37)
[2022-09-22] MEDS: levoFLOXacin 750 MG TABLET PO (22:37)
== END 2022-09-22 22:55 | disposition home or self-care (01) ==
PROVIDERS: Nurse Practitioner Family; Emergency Provider Student in an Organized Health Care Education/Training Program; PCP Nurse Practitioner Family
DX: K63.89 Other specified diseases of intestine (principal); R10.32 Left lower quadrant pain; Z79.899 Other long term (current) drug therapy
CPT/HCPCS: 36415; 74177; 80048; 80076; 81003; 83690; 85025; 99283; 99284; Q9967

== ENCOUNTER → 2022-10-06 14:53 | Outpatient (BNVA) | payer OTHER, SELFPAY | PROVIDERS: PCP Nurse Practitioner Family; Visit Provider Anesthesiology | DX: Z51.81 Encounter for therapeutic drug level monitoring (principal); F11.20 Opioid dependence, uncomplicated; M47.816 Spondylosis without myelopathy or radiculopathy, lumbar region; M16.12 Unilateral primary osteoarthritis, left hip | CPT/HCPCS: 99212 ==

== ENCOUNTER → 2022-11-18 09:54 | Outpatient (BNVA) | payer OTHER, SELFPAY | PROVIDERS: PCP Nurse Practitioner Family; Visit Provider Anesthesiology | DX: Z13.89 Encounter for screening for other disorder (principal) ==

== ENCOUNTER 2022-11-25 11:36 | Outpatient (REF) | payer OTHER, SELFPAY ==
[2022-11-25 11:50] LABS: MANUAL DIFF FLAG NO
[2022-11-25 12:38] LABS: Basophils Absolute Auto 0.1 X10*3/uL (0.0-0.2); Basophils Percent Auto 0.7 % (0-2); Eosinophils Absolute Auto 0.2 X10*3/uL (0.0-0.4); Eosinophils Percent Auto 2.8 % (0-4); Hematocrit 39.6 % (37.0-47.0); Imm Gran Abs Auto 0.03 X10*3/uL (0.00-0.03); Imm Gran Pct Auto 0.4 % (0.0-0.4); Lymphocytes Absolute Auto 1.7 X10*3/uL (1.2-4.9); Lymphocytes Percent Auto 25.9 % (20-40); Mean Corpuscular HGB Conc 32.8 g/dl (31.0-35.0); Mean Corpuscular Hemoglobin 26.8 pg (27.0-33.0); Mean Corpuscular Volume 81.6 fL (80.0-98.0); Mean Platelet Volume 11.2 fL (9.4-12.3); Monocytes Absolute Auto 0.4 X10*3/uL (0.1-1.2); Monocytes Percent Auto 5.8 % (2-11); Neutrophils Absolute Auto 4.3 x10*3/uL (2.0-8.3); Neutrophils Percent Auto 64.4 % (45-73); Platelet Count 293 X10*3/uL (160-400); Red Blood Count 4.85 X10*6/uL (4.20-5.50); White Blood Count 6.7 X10*3/uL (4.8-10.8)
[2022-11-25 13:18] LABS: Alanine Aminotransferase 18 U/L (0-31); Albumin Level 3.8 g/dL (3.5-5.0); Alkaline Phosphatase 112 U/L (39-117); Anion Gap 12 (12-20); Aspartate Amino Transferase 16 U/L (5-31); Bilirubin Total 0.5 mg/dL (0.0-1.0); Blood Urea Nitrogen 19 mg/dL (9-16); Calcium 9.2 mg/dL (8.4-10.2); Carbon Dioxide 27 mmol/L (22-29); Chloride 108 mmol/L (96-108); Estimated Glomerular Filt Rate 48; Glucose Random 101 mg/dL (60-115); Magnesium 1.8 mg/dL (1.6-2.6); Phosphorus 3.7 mg/dL (2.7-4.5); Potassium 4.5 mmol/L (3.3-5.1); Sodium 142 mmol/L (135-145); Total Protein 6.9 g/dL (6.5-8.0); Uric Acid 5.9 mg/dL (2.4-5.7)
[2022-11-25 13:35] LABS: Vitamin D 25-OH Total 35.6 ng/mL (>30)
[2022-11-25 14:55] LABS: Protein/Creatinine Ratio, Ur 0.08 (<0.2); Total Protein Urine Random 27 mg/dL (<12)
[2022-11-26 17:18] LABS: PTHI 111 pg/mL (16-77)
== END 2022-11-25 11:37 | disposition home or self-care (01) ==
LOC: HO.LAB 11:36
PROVIDERS: PCP Nurse Practitioner Family; Visit Provider Internal Medicine Nephrology
DX: I12.9 Hypertensive chronic kidney disease with stage 1 through stage 4 chronic kidney disease, or unspecified chronic kidney disease (principal); N18.31 Chronic kidney disease, stage 3a; G47.33 Obstructive sleep apnea (adult) (pediatric)
CPT/HCPCS: 36415; 80053; 82306; 83735; 83970; 84100; 84156; 84550; 85025

== ENCOUNTER → 2022-12-15 11:42 | Outpatient (BNVA) | payer OTHER, SELFPAY | PROVIDERS: PCP Nurse Practitioner Family; Visit Provider Anesthesiology | DX: Z51.81 Encounter for therapeutic drug level monitoring (principal); F11.20 Opioid dependence, uncomplicated; M47.816 Spondylosis without myelopathy or radiculopathy, lumbar region; M16.12 Unilateral primary osteoarthritis, left hip | CPT/HCPCS: 99212 ==

== ENCOUNTER 2022-12-23 12:04 | Outpatient (REF) | payer OTHER, SELFPAY ==
--- NOTE | ~2022-12-23 | XR_ITS ---
EXAMINATION: XR HIP, LEFT CLINICAL INFORMATION: Left hip primary osteoarthritis. COMPARISON: Radiograph dated 07/13/2021. TECHNIQUE: AP and frog-leg lateral views of the left hip. FINDINGS: Bones and soft tissues are normal. No fracture. Alignment is anatomic. Hip joint space is maintained. XR/XR hip LT min 2V IMPRESSION: Normal left hip.
== END 2022-12-23 12:05 | disposition home or self-care (01) ==
LOC: HO.XRAY 12:04
PROVIDERS: PCP Nurse Practitioner Family; Visit Provider Anesthesiology
DX: M16.12 Unilateral primary osteoarthritis, left hip (principal)
CPT/HCPCS: 73502

== ENCOUNTER 2023-01-01 12:27 | Emergency (ER) | payer OTHER, SELFPAY ==
--- NOTE | ~2023-01-01 | XR_ITS ---
EXAMINATION: PORTABLE CHEST 1 VIEW CLINICAL INFORMATION: n/v/d and abd pain . COMPARISON: 09/23/2021. TECHNIQUE: Portable frontal view of the chest was obtained. FINDINGS: The lungs are well expanded. No focal infiltrate, effusion, edema, or pneumothorax. Cardiac and mediastinal silhouettes are within normal limits for technique. Surgical clips in the right axilla again noted. Degenerative changes in the spine. No acute bony abnormality seen. XR/XR chest 1V IMPRESSION: No evidence of acute disease compared to 09/23/2021.
--- NOTE | ~2023-01-01 | CT_ITS ---
EXAMINATION: CT ABDOMEN AND PELVIS WITHOUT CONTRAST CLINICAL INFORMATION: Abdominal pain. Nausea vomiting diarrhea. COMPARISON: 09/22/2022 TECHNIQUE: Multidetector volumetric imaging was performed from the superior aspect of the liver through the pubic symphysis. Sagittal and coronal reformatted images were obtained on the technologist's workstation. This CT examination was performed using dose optimization techniques as appropriate, variously including the following: *Automated exposure control *Adjustment of mA and/or kV according to patient size (this includes techniques or standardized protocols for targeted exams where dose is matched to indication/reason for exam; i.e. extremities or head) *Use of iterative reconstruction technique DLP: 827 mGy-cm FINDINGS: LUNG BASES: Normal. No pulmonary consolidation or pleural effusion. LIVER: The liver has normal size, shape, and attenuation. No evidence of liver mass. GALLBLADDER AND BILIARY TREE: Gallbladder is absent. No dilated bile ducts. PANCREAS: Normal. No edema, pancreatic ductal dilatation or mass. SPLEEN: Normal. ADRENAL GLANDS: Normal. KIDNEYS AND URETERS: The kidneys have normal size and cortical thickness. No perinephric edema or fluid collection. No urolithiasis or hydroureteronephrosis. BLADDER: Normal. No calculi or wall thickening. BOWEL AND PERITONEUM: A stable opacity at the level of the esophagogastric junction is likely from prior hiatal hernia repair. Stomach is underdistended and otherwise unremarkable. No dilated bowel loops. The appendix is normal. No focal bowel wall thickening. No acute mesenteric fat stranding or free fluid. There is minimal residual hazy opacity anterior to the distal descending colon at site of prior epiploic appendagitis. ABDOMINAL WALL: Unremarkable. VASCULATURE: Mild atherosclerotic calcification of the abdominal aorta without aneurysm. LYMPH NODES: No pathologic sized lymph nodes in the abdomen or pelvis. No inguinal lymphadenopathy. PELVIC VISCERA: Status post hysterectomy. No adnexal mass or pelvic free fluid. MUSCULOSKELETAL: Facet osteoarthritis and minimal anterolisthesis at L4-L5. No suspicious bone lesions. CT/CT abdomen pelvis wo IV con IMPRESSION: No acute findings in the abdomen or pelvis compared to 09/22/2022. Specifically, no evidence of acute inflammation or obstruction along the gastrointestinal tract. There is minimal residual haziness of fat anterior to the distal descending colon at site of prior epiploic appendagitis.
[2023-01-01 12:52] VITALS: BP 123/71; PULSE 94; RESP 18; TEMP 36.8; O2SAT 99; BMI 40.2
--- NOTE | 2023-01-01 12:56 | ECG_ITS ---
Test Reason : N/V ABD PAIN Blood Pressure : / mmHG Vent. Rate : 086 BPM Atrial Rate : 086 BPM P-R Int : 130 ms QRS Dur : 084 ms QT Int : 368 ms P-R-T Axes : 048 009 052 degrees QTc Int : 440 ms Normal sinus rhythm with sinus arrhythmia Normal ECG When compared with ECG of 23-SEP-2021 09:45, No significant change was found Referred By: Karie Iyer Electronically Signed By:MARLO LIZAMA MD
--- NOTE | 2023-01-01 12:57 | ED.ABDPAIN ---
HPI - Abdominal Pain General Chief Complaint: Abdominal Pain <HANNAH Haynes - Last Filed: 01/01/23 12:59> Stated Complaint: nausea, Diarrhea <HANNAH Haynes - Last Filed: 01/01/23 12:59> Time Seen by Provider: 01/01/23 13:19 <HANNAH Haynes - Last Filed: 01/01/23 12:59> Source: patient and family (Daughter) <Caroline Ruiz MD - Last Filed: 01/01/23 17:12> Mode of arrival: ambulatory <Caroline Ruiz MD - Last Filed: 01/01/23 17:12> History of Present Illness HPI narrative: 57-year-old female comes in with history of renal colic and stating that on she began having right-sided flank pain that has gradually worsened prompting her to present to the emergency room with nausea and vomiting as well as fevers and diarrhea. Patient does have her appendix but is otherwise status post cholecystectomy. <Caroline Ruiz MD - Last Filed: 01/01/23 17:12> Related Data Home Medications: Home Medications Medication Instructions Recorded Confirmed aripiprazole 5 mg tablet 5 mg PO DAILY 08/23/20 09/16/22 buspirone 15 mg tablet 15 mg PO BID 08/23/20 09/16/22 spironolactone 25 mg tablet 25 mg PO BID 08/23/20 09/16/22 sertraline 100 mg tablet 100 mg PO DAILY 05/26/21 09/16/22 naloxone 4 mg/actuation nasal 4 mg intranasal Q2M PRN as directed 04/28/22 09/16/22 spray (Narcan) zolpidem 5 mg tablet 5 mg PO BEDTIME PRN Sleep 06/10/22 09/16/22 Previous Rx's Medication Instructions Recorded blood pressure kit-extra large #1 ea 01/12/21 atorvastatin 20 mg tablet 20 mg PO DAILY 90 days #90 tabs 01/15/21 docusate sodium 100 mg capsule 100 mg PO BEDTIME #30 caps 05/08/21 albuterol sulfate 2.5 mg/0.5 mL 5 mg inhalation Q4H PRN shortness 09/23/21 solution for nebulization of breath or wheezing #30 ea albuterol sulfate 90 mcg/actuation 2 puff inhalation Q4-6H PRN 09/23/21 aerosol inhaler shortness of breath or wheezing #6.7 grams fluticasone propionate 50 2 spray intranasal DAILY #16 grams 09/23/21 mcg/actuation nasal spray,suspension (Flonase Allergy Relief) diclofenac sodium 1 % topical gel 4 g topical QID 30 days #100 grams 12/09/21 (Arthritis Pain (diclofenac)) rivaroxaban 20 mg tablet (Xarelto) 20 mg PO DAILY #90 tabs 02/28/22 clonidine HCl 0.1 mg tablet 0.1 mg PO BID 30 days #60 tabs 04/12/22 incontinence pad, liner, disp #39 ea 04/12/22 hydrochlorothiazide 25 mg tablet 25 mg PO DAILY 30 days #30 tabs 04/29/22 fluticasone propionate 110 1 puff inhalation BID 30 days #12 06/02/22 mcg/actuation HFA aerosol inhaler grams amlodipine 10 mg tablet 10 mg PO DAILY 90 days #90 tabs 08/05/22 lisinopril 40 mg tablet 40 mg PO DAILY 90 days #90 tabs 08/05/22 cholecalciferol (vitamin D3) 50 50 mcg PO DAILY #90 caps 08/16/22 mcg (2,000 unit) capsule tizanidine 4 mg tablet 4 mg PO TID PRN for pain #270 tabs 08/27/22 ondansetron 4 mg disintegrating 4 mg sublingual Q12H PRN for 09/04/22 tablet nausea/vomiting 30 days #60 tabs hydroxyzine HCl 10 mg tablet 10 mg PO TID PRN for itch #90 tabs 09/21/22 omeprazole 20 mg capsule,delayed 20 mg PO BID 60 days #120 caps 09/26/22 release oxycodone 5 mg tablet 5 mg PO BID PRN pain 30 days #45 12/15/22 tabs carvedilol 12.5 mg tablet 12.5 mg PO BID 90 days #180 tabs 12/16/22 <HANNAH Haynes - Last Filed: 01/01/23 12:59> Allergies/Adverse Reactions: Allergies Allergy/AdvReac Type Severity Reaction Status Date / Time ibuprofen [IBUPROFEN] Allergy Mild RASH, Verified 12/16/22 15:48 hives, hives <HANNAH Haynes - Last Filed: 01/01/23 12:59> Review of Systems Review of Systems Pertinent positives and negatives as stated in HPI <Caroline Ruiz MD - Last Filed: 01/01/23 17:12> FORMERLY [facility], [facility] Past Medical History Source: nursing notes reviewed <Caroline Ruiz MD - Last Filed: 01/01/23 17:12> Medical History: Medical History Adenomatous polyp of colon Afib Anxiety Asthma Auditory hallucinations Benign neoplasm breast skin Bursitis, shoulder Calcaneal spur Cervical pain (neck) Depression Disc degeneration, lumbar Dyspepsia Esophagitis GERD (gastroesophageal reflux disease) HTN (hypertension) Hyperlipidemia Hypertensive urgency Impaired glucose tolerance Morbid obesity WENDY (obstructive sleep apnea) Osteoarthritis of left hip PAF (paroxysmal atrial fibrillation) Palpitations Sacroiliac joint dysfunction of right side Sacroiliitis Spondylosis without myelopathy or radiculopathy, lumbar region Swelling of both lower extremities Xanthelasma <HANNAH Haynes - Last Filed: 01/01/23 12:59> Surgical History: Surgical History H/O esophagogastroduodenoscopy (09/01/15) H/O esophagogastroduodenoscopy History of esophagogastroduodenoscopy (06/14/12) History of hysterectomy History of removal of cyst Hx of cholecystectomy Hx of colonoscopy Status post Margarita fundoplication (10/27/12) <HANNAH Haynes - Last Filed: 01/01/23 12:59> Family History Family History: Family History Father CVD (cardiovascular disease) HTN (hypertension) Diabetes Mother HTN (hypertension) Diabetes CVD (cardiovascular disease) Brother Pacemaker Maternal Grandmother Throat cancer Brother No problems noted. Daughter Hx LEEP (loop electrosurgical excision procedure), cervix, Other Mental health disorder Substance use disorder <HANNAH Haynes - Last Filed: 01/01/23 12:59> Social History Social History: Social History Household Members: None Housing: House Are you a primary menagerie caretaker to a significant other at home: No Alcohol intake: unknown Patient Tobacco Use Status: Never used Tobacco Smoked in Last 30 Days: No e-Cigarette/Vaping Use: Never Used Second Hand Smoke Exposure: No Use of substances other than those prescribed or required for medical reasons: Unknown Advance Directives: Yes Advance Directives on File: Yes Advance Directives Date on File: 03/16/21 Patient : No Current occupational status: disabled Sexual orientation: Straight/Heterosexual Gender identity: Female Cognitive needs: No Hearing needs: No Vision needs: No <HANNAH Haynes - Last Filed: 01/01/23 12:59> Physical Exam ED Vital Signs: Vital Signs - 24 hr 01/01/23 12:52 01/01/23 14:24 01/01/23 16:00 Temperature 98.3 F 98.6 F 98.2 F Pulse Rate 94 75 76 Respiratory Rate 18 16 16 Blood Pressure 123/71 141/61 H 133/76 Pulse Oximetry 99 100 99 Oxygen Delivery Method Room Air Room Air Room Air BMI result Body Mass Index 40.2 <HANNAH Haynes - Last Filed: 01/01/23 12:59> Vital Signs - 24 hr 01/01/23 12:52 01/01/23 14:24 01/01/23 16:00 Temperature 98.3 F 98.6 F 98.2 F Pulse Rate 94 75 76 Respiratory Rate 18 16 16 Blood Pressure 123/71 141/61 H 133/76 Pulse Oximetry 99 100 99 Oxygen Delivery Method Room Air Room Air Room Air BMI result Body Mass Index 40.2 VITAL SIGNS: Reviewed. GENERAL: Elevated BMI, Well developed, well nourished, in moderate-severe distress. HEAD: Normocephalic/atraumatic EYES: PERRLA, EOMI EARS: Ext canals without abnormality OROPHARYNX: no oral lesions noted, posterior pharynx clear LUNGS: Normal breath sounds. No adventitious sounds or accessory muscle use. SpO2<99> CARDIOVASCULAR: Regular rate and rhythm without noted murmurs ABDOMEN: Soft, non-tender, non-distended with bowel sounds. MUSCULOSKELETAL: No tenderness, deformities, or effusions noted on gross inspection. EXTREMITIES: No cyanosis, clubbing or edema. SKIN: Inspection of the skin reveals no rashes NEUROLOGIC: Alert and oriented x 4. Strength and sensation to light touch were grossly intact x 4. <Caroline Ruiz MD - Last Filed: 01/01/23 17:12> Course Course Course Narrative: RME-13PM - 57yoF with a past medical history of GERD, hypertension, morbid obesity, asthma, obstructive sleep apnea, atrial fibrillation currently on Xarelto who is presenting to the ER with complaints of subjective fevers, chills, fatigue, malaise, nausea/vomiting/diarrhea and diffuse abdominal pain for the past few days worse today. Reports she is having decreased urine output. Denies any chest pain or shortness of breath, black or bloody stools, black or bloody emesis. has similar symptoms all though his symptoms improved. Plan: Will obtain labs, EKG, chest x-ray, COVID/RSV/flu swab. Placed a L of IV fluids and a CT scan abdomen pelvis IV contrast. She will be sent to the ER for further evaluation treatment. <HANNAH Haynes - Last Filed: 01/01/23 12:59> Medical Decision Making Medical Decision Making MDM Narrative: 57-year-old female who is writhing in the bed in I suspect that this is more consistent with a renal colic than appendicitis. Patient received IV fluids, pain medication. 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 Will re-evaluate with a BMP since she has received IV fluids and states she is feeling much improved. She was also encouraged to continue to drink plenty of water after being discharged. <Caroline Ruiz MD - Last Filed: 01/01/23 17:12> Differential Diagnosis Differential Diagnoses: The differential diagnosis associated with the presentation includes <Caroline Ruiz MD - Last Filed: 01/01/23 17:12> Please see the discussion above <Caroline Ruiz MD - Last Filed: 01/01/23 17:12> Lab Data MDM Lab Attestation statement: I reviewed the patient's lab results. <Caroline Ruiz MD - Last Filed: 01/01/23 17:12> Please see the discussion above <Caroline Ruiz MD - Last Filed: 01/01/23 17:12> Result Diagrams: 01/01/23 13:40 01/01/23 13:40 <HANNAH Haynes - Last Filed: 01/01/23 12:59> Labs: Lab Results 01/01/23 01/01/23 01/01/23 Range/Units 13:29 13:40 13:40 WBC 6.3 (4.8-10.8) X10*3/uL RBC 5.33 (4.20-5.50) X10*6/uL Hgb 14.2 (12.0-16.0) g/dl Hct 42.7 (37.0-47.0) % MCV 80.1 (80.0-98.0) fL MCH 26.6 L (27.0-33.0) pg MCHC 33.3 (31.0-35.0) g/dl RDW 14.7 (11.0-16.0) % Plt Count 305 (160-400) X10*3/uL MPV 10.8 (9.4-12.3) fL Immature Gran % (Auto) 0.3 (0.0-0.4) % Neut % (Auto) 68.6 (45-73) % Lymph % (Auto) 19.6 L (20-40) % Ogle % (Auto) 9.5 (2-11) % Eos % (Auto) 1.7 (0-4) % Baso % (Auto) 0.3 (0-2) % Lymph # (Auto) 1.2 (1.2-4.9) X10*3/uL Ogle # (Auto) 0.6 (0.1-1.2) X10*3/uL Eos # (Auto) 0.1 (0.0-0.4) X10*3/uL Baso # (Auto) 0.0 (0.0-0.2) X10*3/uL Abs Immat Gran (auto) 0.02 (0.00-0.03) X10*3/uL Absolute Neuts (auto) 4.3 (2.0-8.3) x10*3/uL Absolute Nucleated RBC 0.000 (0.0-0.012) X10*3/uL Nucleated RBC % (auto) 0.0 (0.0-0.2) /100WBC PT 12.2 (10.0-13.1) SEC INR 1.1 (0.9-1.1) Sodium (135-145) mmol/L Potassium (3.3-5.1) mmol/L Chloride (96-108) mmol/L Carbon Dioxide (22-29) mmol/L Anion Gap (12-20) BUN (9-16) mg/dL Creatinine (0.5-1.4) mg/dL Estim Creat Clear Calc Estimated GFR Random Glucose (60-115) mg/dL Calcium (8.4-10.2) mg/dL Magnesium (1.6-2.6) mg/dL Total Bilirubin (0.0-1.0) mg/dL AST (5-31) U/L ALT (0-31) U/L Alkaline Phosphatase (39-117) U/L Total Protein (6.5-8.0) g/dL Albumin (3.5-5.0) g/dL Lipase (8-78) U/L Influenza Type A (PCR) NEGATIVE (Negative) Influenza Type B (PCR) NEGATIVE (Negative) RSV RNA Qual (PCR) NEGATIVE (Negative) SARS-CoV-2 RNA (RT-PCR) NEGATIVE (Negative) 01/01/23 Range/Units 13:40 WBC (4.8-10.8) X10*3/uL RBC (4.20-5.50) X10*6/uL Hgb (12.0-16.0) g/dl Hct (37.0-47.0) % MCV (80.0-98.0) fL MCH (27.0-33.0) pg MCHC (31.0-35.0) g/dl RDW (11.0-16.0) % Plt Count (160-400) X10*3/uL MPV (9.4-12.3) fL Immature Gran % (Auto) (0.0-0.4) % Neut % (Auto) (45-73) % Lymph % (Auto) (20-40) % Ogle % (Auto) (2-11) % Eos % (Auto) (0-4) % Baso % (Auto) (0-2) % Lymph # (Auto) (1.2-4.9) X10*3/uL Ogle # (Auto) (0.1-1.2) X10*3/uL Eos # (Auto) (0.0-0.4) X10*3/uL Baso # (Auto) (0.0-0.2) X10*3/uL Abs Immat Gran (auto) (0.00-0.03) X10*3/uL Absolute Neuts (auto) (2.0-8.3) x10*3/uL Absolute Nucleated RBC (0.0-0.012) X10*3/uL Nucleated RBC % (auto) (0.0-0.2) /100WBC PT (10.0-13.1) SEC INR (0.9-1.1) Sodium 138 (135-145) mmol/L Potassium 4.4 (3.3-5.1) mmol/L Chloride 109 H (96-108) mmol/L Carbon Dioxide 16 L (22-29) mmol/L Anion Gap 17 (12-20) BUN 43 H (9-16) mg/dL Creatinine 2.12 H (0.5-1.4) mg/dL Estim Creat Clear Calc 31.9 Estimated GFR 24 Random Glucose 119 H (60-115) mg/dL Calcium 9.3 (8.4-10.2) mg/dL Magnesium 1.9 (1.6-2.6) mg/dL Total Bilirubin 0.9 (0.0-1.0) mg/dL AST 19 (5-31) U/L ALT 15 (0-31) U/L Alkaline Phosphatase 118 H (39-117) U/L Total Protein 7.5 (6.5-8.0) g/dL Albumin 4.1 (3.5-5.0) g/dL Lipase 18 (8-78) U/L Influenza Type A (PCR) (Negative) Influenza Type B (PCR) (Negative) RSV RNA Qual (PCR) (Negative) SARS-CoV-2 RNA (RT-PCR) (Negative) <HANNAH Haynes - Last Filed: 01/01/23 12:59> Lab Results 01/01/23 01/01/23 01/01/23 Range/Units 13:29 13:40 13:40 WBC 6.3 (4.8-10.8) X10*3/uL RBC 5.33 (4.20-5.50) X10*6/uL Hgb 14.2 (12.0-16.0) g/dl Hct 42.7 (37.0-47.0) % MCV 80.1 (80.0-98.0) fL MCH 26.6 L (27.0-33.0) pg MCHC 33.3 (31.0-35.0) g/dl RDW 14.7 (11.0-16.0) % Plt Count 305 (160-400) X10*3/uL MPV 10.8 (9.4-12.3) fL Immature Gran % (Auto) 0.3 (0.0-0.4) % Neut % (Auto) 68.6 (45-73) % Lymph % (Auto) 19.6 L (20-40) % Ogle % (Auto) 9.5 (2-11) % Eos % (Auto) 1.7 (0-4) % Baso % (Auto) 0.3 (0-2) % Lymph # (Auto) 1.2 (1.2-4.9) X10*3/uL Ogle # (Auto) 0.6 (0.1-1.2) X10*3/uL Eos # (Auto) 0.1 (0.0-0.4) X10*3/uL Baso # (Auto) 0.0 (0.0-0.2) X10*3/uL Abs Immat Gran (auto) 0.02 (0.00-0.03) X10*3/uL Absolute Neuts (auto) 4.3 (2.0-8.3) x10*3/uL Absolute Nucleated RBC 0.000 (0.0-0.012) X10*3/uL Nucleated RBC % (auto) 0.0 (0.0-0.2) /100WBC PT 12.2 (10.0-13.1) SEC INR 1.1 (0.9-1.1) Sodium (135-145) mmol/L Potassium (3.3-5.1) mmol/L Chloride (96-108) mmol/L Carbon Dioxide (22-29) mmol/L Anion Gap (12-20) BUN (9-16) mg/dL Creatinine (0.5-1.4) mg/dL Estim Creat Clear Calc Estimated GFR Random Glucose (60-115) mg/dL Calcium (8.4-10.2) mg/dL Magnesium (1.6-2.6) mg/dL Total Bilirubin (0.0-1.0) mg/dL AST (5-31) U/L ALT (0-31) U/L Alkaline Phosphatase (39-117) U/L Total Protein (6.5-8.0) g/dL Albumin (3.5-5.0) g/dL Lipase (8-78) U/L Influenza Type A (PCR) NEGATIVE (Negative) Influenza Type B (PCR) NEGATIVE (Negative) RSV RNA Qual (PCR) NEGATIVE (Negative) SARS-CoV-2 RNA (RT-PCR) NEGATIVE (Negative) 01/01/23 Range/Units 13:40 WBC (4.8-10.8) X10*3/uL RBC (4.20-5.50) X10*6/uL Hgb (12.0-16.0) g/dl Hct (37.0-47.0) % MCV (80.0-98.0) fL MCH (27.0-33.0) pg MCHC (31.0-35.0) g/dl RDW (11.0-16.0) % Plt Count (160-400) X10*3/uL MPV (9.4-12.3) fL Immature Gran % (Auto) (0.0-0.4) % Neut % (Auto) (45-73) % Lymph % (Auto) (20-40) % Ogle % (Auto) (2-11) % Eos % (Auto) (0-4) % Baso % (Auto) (0-2) % Lymph # (Auto) (1.2-4.9) X10*3/uL Ogle # (Auto) (0.1-1.2) X10*3/uL Eos # (Auto) (0.0-0.4) X10*3/uL Baso # (Auto) (0.0-0.2) X10*3/uL Abs Immat Gran (auto) (0.00-0.03) X10*3/uL Absolute Neuts (auto) (2.0-8.3) x10*3/uL Absolute Nucleated RBC (0.0-0.012) X10*3/uL Nucleated RBC % (auto) (0.0-0.2) /100WBC PT (10.0-13.1) SEC INR (0.9-1.1) Sodium 138 (135-145) mmol/L Potassium 4.4 (3.3-5.1) mmol/L Chloride 109 H (96-108) mmol/L Carbon Dioxide 16 L (22-29) mmol/L Anion Gap 17 (12-20) BUN 43 H (9-16) mg/dL Creatinine 2.12 H (0.5-1.4) mg/dL Estim Creat Clear Calc 31.9 Estimated GFR 24 Random Glucose 119 H (60-115) mg/dL Calcium 9.3 (8.4-10.2) mg/dL Magnesium 1.9 (1.6-2.6) mg/dL Total Bilirubin 0.9 (0.0-1.0) mg/dL AST 19 (5-31) U/L ALT 15 (0-31) U/L Alkaline Phosphatase 118 H (39-117) U/L Total Protein 7.5 (6.5-8.0) g/dL Albumin 4.1 (3.5-5.0) g/dL Lipase 18 (8-78) U/L Influenza Type A (PCR) (Negative) Influenza Type B (PCR) (Negative) RSV RNA Qual (PCR) (Negative) SARS-CoV-2 RNA (RT-PCR) (Negative) <Caroline Ruiz MD - Last Filed: 01/01/23 17:12> Independent Interpretation I performed an independent interpretation of an: EKG <Caroline Ruiz MD - Last Filed: 01/01/23 17:12> Interpretation: Normal sinus rhythm, HR-86, no STEMI, OR/QRS/QTC is within normal limits. <Caroline Ruiz MD - Last Filed: 01/01/23 17:12> Radiology Impression Radiologist Impression: My interpretation is in agreement with radiology's impression of the imaging study. <Caroline Ruiz MD - Last Filed: 01/01/23 17:12> External Record Review External record reviewed: Outpatient record and Prior outpatient labs <Caroline Ruiz MD - Last Filed: 01/01/23 17:12> Medications Administered Discontinued Medications Generic Name Dose Route Start Last Admin Trade Name Freq PRN Reason Stop Dose Admin Fentanyl 25 mcg 01/01/23 13:36 01/01/23 13:44 Fentanyl Citrate/Pf 100 Mcg/2 Ml Vial IVPUSH 01/01/23 13:37 25 mcg ONCE ONE Administration Protocol Sodium Chloride 1,000 mls @ 999 mls/hr 01/01/23 13:00 01/01/23 15:39 Ns IVCONT 01/01/23 14:00 Infused .Q1H1M SUSANA Infusion <HANNAH Haynes - Last Filed: 01/01/23 12:59> Medications Administered Discontinued Medications Generic Name Dose Route Start Last Admin Trade Name Freq PRN Reason Stop Dose Admin Fentanyl 25 mcg 01/01/23 13:36 01/01/23 13:44 Fentanyl Citrate/Pf 100 Mcg/2 Ml Vial IVPUSH 01/01/23 13:37 25 mcg ONCE ONE Administration Protocol Sodium Chloride 1,000 mls @ 999 mls/hr 01/01/23 13:00 01/01/23 15:39 Ns IVCONT 01/01/23 14:00 Infused .Q1H1M SUSANA Infusion <Caroline Ruiz MD - Last Filed: 01/01/23 17:12> Critical Care Time Critical Care Time Critical Care Time: Yes <Caroline Ruiz MD - Last Filed: 01/01/23 17:12> Total Critical Care Time: 30 <Caroline Ruiz MD - Last Filed: 01/01/23 17:12> Attestation: I personally attest to this time spent taking care of the patient. <Caroline Ruiz MD - Last Filed: 01/01/23 17:12> Discharge Plan Discharge Clinical Impression: Abdominal pain, Muscle spasm, RUTH (acute kidney injury) <HANNAH Haynes - Last Filed: 01/01/23 12:59> Patient Disposition: Home, Self-Care <HANNAH Haynes - Last Filed: 01/01/23 12:59> Instructions: Abdominal Pain (ED), Acute Kidney Injury (DC), Muscle Spasm (ED) <HANNAH Haynes - Last Filed: 01/01/23 12:59> Additional Instructions: 1. Reanudar todos los medicamentos caseros seg?n lo prescrito. 2. Deber? aumentar la cantidad de agua que est? bebiendo y hacer un seguimiento con brice proveedor de atenci?n primaria para repetir las pruebas de brice funci?n renal. 3. Chacha un seguimiento con el proveedor de atenci?n primaria el lunes por la ma?toño. Regrese a la maynor de emergencias si los s?ntomas empeoran. 1. Resume all home medications as prescribed. 2. You will need to increase the amount of water that you are drinking as well as following up with your primary care provider to get a repeat testing of your renal function. 3. Please follow-up with primary care provider on Tuesday morning. Return to the ER for any worsening symptoms. <HANNAH Haynes - Last Filed: 01/01/23 12:59> Prescriptions: No Action atorvastatin 20 mg tablet 20 mg PO DAILY 90 Days Qty: 90 0RF Xarelto 20 mg tablet 20 mg PO DAILY Qty: 90 2RF (DME) incontinence pad, liner, disp Pad See Rx Instructions .Route Qty: 39 0RF Rx Instructions: use daily for incont hydrochlorothiazide 25 mg tablet 25 mg PO DAILY 30 Days Qty: 30 2RF fluticasone propionate 110 mcg/actuation HFA aerosol inhaler 1 puff inhalation BID 30 Days Qty: 12 1RF lisinopril 40 mg tablet 40 mg PO DAILY 90 Days Qty: 90 1RF amlodipine 10 mg tablet 10 mg PO DAILY 90 Days Qty: 90 1RF cholecalciferol (vitamin D3) 50 mcg (2,000 unit) capsule 50 mcg PO DAILY Qty: 90 1RF tizanidine 4 mg tablet 4 mg PO TID PRN (Reason: for pain) Qty: 270 8RF ondansetron 4 mg tablet,disintegrating 4 mg sublingual Q12H PRN (Reason: for nausea/vomiting) 30 Days Qty: 60 1RF hydroxyzine HCl 10 mg tablet 10 mg PO TID PRN (Reason: for itch) Qty: 90 8RF omeprazole 20 mg capsule,delayed release(DR/EC) 20 mg PO BID 60 Days Qty: 120 3RF docusate sodium 100 mg capsule 100 mg PO BEDTIME Qty: 30 0RF albuterol sulfate 90 mcg/actuation HFA aerosol inhaler 2 puff inhalation Q4-6H PRN (Reason: shortness of breath or wheezing) Qty: 6.7 0RF albuterol sulfate 2.5 mg/0.5 mL solution for nebulization 5 mg inhalation Q4H PRN (Reason: shortness of breath or wheezing) Qty: 30 0RF fluticasone propionate [Flonase Allergy Relief] 50 mcg/actuation spray,suspension 2 spray intranasal DAILY Qty: 16 0RF Rx Instructions: administer into each nostril (DME) blood pressure kit-extra large Kit See Rx Instructions .ROUTE .MEDSUPPLY Qty: 1 0RF Rx Instructions: As directed clonidine HCl 0.1 mg tablet 0.1 mg PO BID 30 Days Qty: 60 1RF carvedilol 12.5 mg tablet 12.5 mg PO BID 90 Days Qty: 180 1RF aripiprazole 5 mg tablet 5 mg PO DAILY buspirone 15 mg tablet 15 mg PO BID spironolactone 25 mg tablet 25 mg PO BID sertraline 100 mg tablet 100 mg PO DAILY zolpidem 5 mg tablet 5 mg PO BEDTIME PRN (Reason: Sleep) naloxone [Narcan] 4 mg/actuation spray,non-aerosol 4 mg intranasal Q2M PRN (Reason: as directed) Rx Instructions: spray 1 dose into ONE nostril; alternate nostrils w each dose until help arrives diclofenac sodium [Arthritis Pain (diclofenac)] 1 % gel 4 g topical QID 30 Days Qty: 100 11RF Rx Instructions: apply to single knee, ankle, foot; for foot includes sole/toes/top of foot oxycodone 5 mg tablet 5 mg PO BID PRN (Reason: pain) 30 Days Qty: 45 0RF <HANNAH Haynes - Last Filed: 01/01/23 12:59> Referrals: Alfredo Massey, [employer] [facility]- [Primary Care Provider] - <HANNAH Haynes - Last Filed: 01/01/23 12:59> Print Language: Czech <HANNAH Haynes - Last Filed: 01/01/23 12:59>
[2023-01-01] MEDS: fentaNYL citrate/PF 100 MCG/2 ML VIAL 25 MCG IVPUSH (13:44)
[2023-01-01] MEDS: 0.9 % Sodium Chloride 1,000 ML 999 ML IVCONT (13:45)
[2023-01-01 13:47] LABS: MANUAL DIFF FLAG NO
[2023-01-01 13:48] LABS: Basophils Percent Auto 0.3 % (0-2); Eosinophils Absolute Auto 0.1 X10*3/uL (0.0-0.4); Eosinophils Percent Auto 1.7 % (0-4); Hematocrit 42.7 % (37.0-47.0); Hemoglobin 14.2 g/dl (12.0-16.0); Imm Gran Abs Auto 0.02 X10*3/uL (0.00-0.03); Imm Gran Pct Auto 0.3 % (0.0-0.4); Lymphocytes Absolute Auto 1.2 X10*3/uL (1.2-4.9); Lymphocytes Percent Auto 19.6 % (20-40); Mean Corpuscular HGB Conc 33.3 g/dl (31.0-35.0); Mean Corpuscular Hemoglobin 26.6 pg (27.0-33.0); Mean Corpuscular Volume 80.1 fL (80.0-98.0); Mean Platelet Volume 10.8 fL (9.4-12.3); Monocytes Absolute Auto 0.6 X10*3/uL (0.1-1.2); Monocytes Percent Auto 9.5 % (2-11); Neutrophils Absolute Auto 4.3 x10*3/uL (2.0-8.3); Neutrophils Percent Auto 68.6 % (45-73); Platelet Count 305 X10*3/uL (160-400); Red Blood Count 5.33 X10*6/uL (4.20-5.50); Red Cell Distribution Width 14.7 % (11.0-16.0); White Blood Count 6.3 X10*3/uL (4.8-10.8)
--- NOTE | 2023-01-01 13:50 | PC.NURSE ---
Patient complaint of right sided flank pain ABD soft some tenderness no guarding noted. BS quad x 4 LS clear AOx 4 primarily Cambodian speaking daughter at bedside. CASON with purpose neuros intact IV access obtained labs collected and sent. IV grant meds and IVF admin wuith no ill effect. Will CTM
[2023-01-01 13:53] LABS: INTERNATIONAL NORM RATIO 1.1 (0.9-1.1); Prothrombin Time 12.2 SEC (10.0-13.1)
[2023-01-01 14:10] LABS: Alanine Aminotransferase 15 U/L (0-31); Albumin Level 4.1 g/dL (3.5-5.0); Alkaline Phosphatase 118 U/L (39-117); Anion Gap 17 (12-20); Aspartate Amino Transferase 19 U/L (5-31); Bilirubin Total 0.9 mg/dL (0.0-1.0); Blood Urea Nitrogen 43 mg/dL (9-16); Calcium 9.3 mg/dL (8.4-10.2); Carbon Dioxide 16 mmol/L (22-29); Chloride 109 mmol/L (96-108); Creatinine Clr Calc Pharmacy 31.9; Estimated Glomerular Filt Rate 24; Glucose Random 119 mg/dL (60-115); Lipase 18 U/L (8-78); Magnesium 1.9 mg/dL (1.6-2.6); Potassium 4.4 mmol/L (3.3-5.1); Sodium 138 mmol/L (135-145); Total Protein 7.5 g/dL (6.5-8.0)
[2023-01-01 14:24] VITALS: BP 141/61; PULSE 75; RESP 16; TEMP 37; O2SAT 100
[2023-01-01 14:27] LABS: Influenza A PCR NEGATIVE (Negative); Influenza B PCR NEGATIVE (Negative); Resp Syncy Virus RNA Qual PCR NEGATIVE (Negative); SARS COV2 PCR INHOUSE NEGATIVE (Negative)
--- NOTE | 2023-01-01 14:32 | PC.NURSE ---
Patient to CT
[2023-01-01 16:00] VITALS: BP 133/76; PULSE 76; RESP 16; TEMP 36.8; O2SAT 99
--- NOTE | 2023-01-01 16:41 | MHC.EDTECH ---
this pct assumed care of pt at 1500 ,vitals sign taken ,pt daughter at bedside .
--- NOTE | 2023-01-01 17:12 | PC.NURSE ---
Patient resting comfortably no distress noted reports improvement of pain labs collected patient tolerated PO fluids will CTM
[2023-01-01 17:38] LABS: Anion Gap 15 (12-20); Blood Urea Nitrogen 39 mg/dL (9-16); Calcium 8.6 mg/dL (8.4-10.2); Carbon Dioxide 17 mmol/L (22-29); Chloride 111 mmol/L (96-108); Creatinine Clr Calc Pharmacy 36.8; Estimated Glomerular Filt Rate 28; Glucose Random 116 mg/dL (60-115); Potassium 4.3 mmol/L (3.3-5.1); Sodium 139 mmol/L (135-145)
[2023-01-01 18:00] VITALS: BP 138/70; PULSE 79; RESP 16; TEMP 36.9; O2SAT 98
[2023-01-01 19:09] LABS: Appearance Urine Cloudy; Color Urine Yellow; Glucose Urine UA Negative (Negative); Leukocyte Esterase Urine Moderate (2+) (Negative); Nitrite Urine Negative (Negative); PH 5.5 (5.0-9.0); Specific Gravity - Urine 1.015 (1.005-1.025); UMIC TRIGGER UACC YES; Urine Blood Negative (Negative); Urine Ketones Trace mg/dL (Negative); Urine Protein 30 (1+) mg/dL (Neg-Trace)
[2023-01-01 19:29] LABS: Bacteria Urine 4+ (None Seen); Hyaline Casts Urine >20 /LPF (0-2); RBC Urine 0-2 /HPF (0-2); Squamous Epithelial Cell Urine >20 /HPF (0-2); UACC Culture Trigger YES
== END 2023-01-01 19:50 | disposition home or self-care (01) ==
PROVIDERS: Physician Assistant Medical; Student in an Organized Health Care Education/Training Program; Emergency Provider Internal Medicine; PCP Nurse Practitioner Family
DX: R10.9 Unspecified abdominal pain (principal); M62.838 Other muscle spasm; N17.9 Acute kidney failure, unspecified; Z20.822 Contact with and (suspected) exposure to COVID-19; Z20.828 Contact with and (suspected) exposure to other viral communicable diseases; I10 Essential (primary) hypertension; I48.0 Paroxysmal atrial fibrillation; E78.5 Hyperlipidemia, unspecified; E66.9 Obesity, unspecified; Z68.41 Body mass index [BMI] 40.0-44.9, adult
CPT/HCPCS: 0241U; 36415; 71045; 74176; 80048; 80053; 81001; 83690; 83735; 85025; 85610; 87086; 93005; 96361; 96374; 99284; 99285; J3010

== ENCOUNTER → 2023-01-11 11:24 | Outpatient (BNVA) | payer OTHER, SELFPAY | PROVIDERS: PCP Nurse Practitioner Family; Visit Provider Anesthesiology | DX: Z51.81 Encounter for therapeutic drug level monitoring (principal); F11.20 Opioid dependence, uncomplicated | CPT/HCPCS: 99211 ==

== ENCOUNTER 2023-01-14 12:50 | Outpatient (REF) | payer OTHER, SELFPAY ==
[2023-01-14 13:30] LABS: Hematocrit 39.8 % (37.0-47.0); Hemoglobin 12.8 g/dl (12.0-16.0); Mean Corpuscular HGB Conc 32.2 g/dl (31.0-35.0); Mean Corpuscular Hemoglobin 26.6 pg (27.0-33.0); Mean Corpuscular Volume 82.6 fL (80.0-98.0); Platelet Count 316 X10*3/uL (160-400); Red Blood Count 4.82 X10*6/uL (4.20-5.50); Red Cell Distribution Width 14.7 % (11.0-16.0); White Blood Count 8.7 X10*3/uL (4.8-10.8)
[2023-01-14 13:47] LABS: Anion Gap 12 (12-20); Blood Urea Nitrogen 28 mg/dL (9-16); Calcium 9.5 mg/dL (8.4-10.2); Carbon Dioxide 26 mmol/L (22-29); Chloride 107 mmol/L (96-108); Estimated Glomerular Filt Rate 31; Glucose Random 109 mg/dL (60-115); Potassium 4.4 mmol/L (3.3-5.1); Sodium 141 mmol/L (135-145)
== END 2023-01-14 12:51 | disposition home or self-care (01) ==
LOC: HO.LAB 12:50
PROVIDERS: PCP Nurse Practitioner Family; Visit Provider Internal Medicine
DX: K92.1 Melena (principal)
CPT/HCPCS: 36415; 80048; 85027

== ENCOUNTER → 2023-01-17 15:29 | Outpatient (BNVA) | payer OTHER, SELFPAY | PROVIDERS: PCP Nurse Practitioner Family; Referring Provider Nurse Practitioner Family; Visit Provider Internal Medicine | DX: K21.9 Gastro-esophageal reflux disease without esophagitis (principal); K22.70 Barrett's esophagus without dysplasia; K92.1 Melena; K92.0 Hematemesis; I48.0 Paroxysmal atrial fibrillation; R68.81 Early satiety | CPT/HCPCS: 99212 ==

== ENCOUNTER 2023-01-26 10:13 | Day surgery (SDC) | payer OTHER, SELFPAY ==
[2023-01-21 11:27] VITALS: BMI 40.2
--- NOTE | 2023-01-25 12:18 | HO.ANESPROP2 ---
Documented by User: Irais Elizabeth NP 01/25/23 12:20 HPI - Anesthesia Eval Consult details Narrative: 57yo F for Upper Endoscopy Xarelto for afib PMFSH Active Problems Active Problems: All Active Problems (Updated 01/21/23 @ 11:24 by Betsy Pastor RN) Patellofemoral arthralgia of both knees (Acute) Obesity (Acute) Foot pain, bilateral (Acute) GERD (gastroesophageal reflux disease) (Acute) Early satiety (Acute) Chronic constipation (Acute) Vaginal lesion (Acute) HTN (hypertension) (Acute) Paroxysmal atrial fibrillation (Acute) Bacterial vaginosis (Acute) Bilateral primary osteoarthritis of knee (Acute) Spondylosis of lumbosacral spine with radiculopathy (Acute) Pain and swelling of knee (Acute) Continuous periumbilical abdominal pain (Acute) Dyslipidemia (Acute) Elevated fasting blood sugar (Acute) Lynch's esophagus without dysplasia (Acute) Right otitis media (Acute) HTN (hypertension) (Acute) Cough (Acute) Physical exam (Acute) Postmenopausal (Acute) Bilateral hip pain (Acute) Sacroiliac joint pain (Acute) Somatic dysfunction of right sacroiliac joint (Acute) Viral illness (Acute) Otitis media, right (Acute) Sciatica (Acute) HTN (hypertension) (Acute) Uncontrolled hypertension (Acute) Elevated fasting blood sugar (Acute) Acute pharyngitis (Acute) Microscopic hematuria (Acute) GERD (gastroesophageal reflux disease) (Acute) Hemorrhoids, internal, with bleeding (Acute) Arthritis of left hip (Acute) HTN (hypertension) (Acute) Sleep apnea (Acute) Melena (Acute) Melena (Acute) Hematemesis (Acute) Osteoarthritis of left hip (Acute) Spondylosis without myelopathy or radiculopathy, lumbar region (Acute) Sacroiliac joint dysfunction of right side (Acute) Sacroiliitis (Acute) Asthma (Acute) WENDY (obstructive sleep apnea) (Acute) Morbid obesity (Acute) Swelling of both lower extremities (Acute) Disc degeneration, lumbar (Acute) Adenomatous polyp of colon (Acute) Cervical pain (neck) (Acute) Past Medical History Medical History Adenomatous polyp of colon Afib Anxiety Asthma Auditory hallucinations Benign neoplasm breast skin Bursitis, shoulder Calcaneal spur Cervical pain (neck) Depression Disc degeneration, lumbar Dyspepsia Esophagitis GERD (gastroesophageal reflux disease) HTN (hypertension) Hx of flexible sigmoidoscopy Hyperlipidemia Hypertensive urgency Impaired glucose tolerance Morbid obesity WENDY (obstructive sleep apnea) Osteoarthritis of left hip PAF (paroxysmal atrial fibrillation) Palpitations Sacroiliac joint dysfunction of right side Sacroiliitis Spondylosis without myelopathy or radiculopathy, lumbar region Swelling of both lower extremities Xanthelasma Family History Family History Father CVD (cardiovascular disease) HTN (hypertension) Diabetes Mother HTN (hypertension) Diabetes CVD (cardiovascular disease) Brother Pacemaker Maternal Grandmother Throat cancer Brother No problems noted. Daughter Hx LEEP (loop electrosurgical excision procedure), cervix, Other Mental health disorder Substance use disorder Surgical History Surgical History H/O esophagogastroduodenoscopy (09/01/15) History of hysterectomy History of removal of cyst Hx of cholecystectomy Hx of colonoscopy Status post Margarita fundoplication (10/27/12) Social History Social History Household Members: None Housing: House Are you a primary healthcare technician to a significant other at home: No Alcohol intake: unknown Patient Tobacco Use Status: Never used Tobacco e-Cigarette/Vaping Use: Never Used Second Hand Smoke Exposure: No Use of substances other than those prescribed or required for medical reasons: No Are you DNR?: No Advance Directives: Yes Advance Directives on File: Yes Advance Directives Date on File: 03/16/21 Current occupational status: disabled Sexual orientation: Straight/Heterosexual Gender identity: Female Cognitive needs: No Hearing needs: No Vision needs: No Meds Allergies Allergy/AdvReac Type Severity Reaction Status Date / Time ibuprofen [IBUPROFEN] Allergy Mild RASH, Verified 01/11/23 11:55 hives, hives Home Medications Medication Instructions Recorded Confirmed Last Taken Type aripiprazole 5 mg tablet 5 mg PO DAILY 08/23/20 01/21/23 01/26/23 08:30 History buspirone 15 mg tablet 15 mg PO BID 08/23/20 01/21/23 01/26/23 08:30 History spironolactone 25 mg tablet 25 mg PO BID 08/23/20 01/21/23 Unknown History sertraline 100 mg tablet 100 mg PO DAILY 05/26/21 01/21/23 01/26/23 08:30 History naloxone 4 mg/actuation nasal 4 mg intranasal Q2M PRN as directed 04/28/22 01/11/23 Unknown History spray (Narcan) zolpidem 5 mg tablet 5 mg PO BEDTIME PRN Sleep 06/10/22 01/21/23 Unknown History Exam Exam Date and Time: January 25, 2023 1218 Height,Weight and Vital Signs: Height 5 ft 2 in Weight 99.79 kg Pertinent Lab Results Pertinent Lab Results: Laboratory Tests 01/14/23 01/14/23 12:57 12:57 WBC 8.7 Hgb 12.8 Hct 39.8 Plt Count 316 Sodium 141 Potassium 4.4 Chloride 107 Carbon Dioxide 26 BUN 28 H Creatinine 1.70 H Narrative Narrative: EKG 12/2022 Vent. Rate : 086 BPM ? ? Atrial Rate : 086 BPM ?? P-R Int : 130 ms? QRS Dur : 084 ms ? ? QT Int : 368 ms ? ? ? P-R-T Axes : 048 009 052 degrees ?? QTc Int : 440 ms ? Normal sinus rhythm with sinus arrhythmia Normal ECG When compared with ECG of 23-SEP-2021 09:45, No significant change was found ECHO 2020 Conclusions: - 1. Normal LV systolic function with impaired relaxation filling pattern? 2. Normal cardiac valvular Doppler ? 3. Normal RV systolic pressure ? 4. No pericardial effusion ? Assessment and Plan Assessment Anesthesia Assessment: Chart Reviewed Documented by User: Rylee Akbar MD 01/26/23 12:09 HPI - Anesthesia Eval Consult details Narrative: 57yo F for Upper Endoscopy Xarelto for afib. Last dose 01/21/23 [facility] Active Problems Active Problems: All Active Problems (Updated 01/21/23 @ 11:24 by Betsy Pastor RN) Patellofemoral arthralgia of both knees (Acute) Obesity (Acute) Foot pain, bilateral (Acute) GERD (gastroesophageal reflux disease) (Acute) Early satiety (Acute) Chronic constipation (Acute) Vaginal lesion (Acute) HTN (hypertension) (Acute) Paroxysmal atrial fibrillation (Acute) Bacterial vaginosis (Acute) Bilateral primary osteoarthritis of knee (Acute) Spondylosis of lumbosacral spine with radiculopathy (Acute) Pain and swelling of knee (Acute) Continuous periumbilical abdominal pain (Acute) Dyslipidemia (Acute) Elevated fasting blood sugar (Acute) Lynch's esophagus without dysplasia (Acute) Right otitis media (Acute) HTN (hypertension) (Acute) Cough (Acute) Physical exam (Acute) Postmenopausal (Acute) Bilateral hip pain (Acute) Sacroiliac joint pain (Acute) Somatic dysfunction of right sacroiliac joint (Acute) Viral illness (Acute) Otitis media, right (Acute) Sciatica (Acute) HTN (hypertension) (Acute) Uncontrolled hypertension (Acute) Elevated fasting blood sugar (Acute) Acute pharyngitis (Acute) Microscopic hematuria (Acute) GERD (gastroesophageal reflux disease) (Acute) Hemorrhoids, internal, with bleeding (Acute) Arthritis of left hip (Acute) HTN (hypertension) (Acute) Sleep apnea (Acute) Melena (Acute) Melena (Acute) Hematemesis (Acute) Osteoarthritis of left hip (Acute) Spondylosis without myelopathy or radiculopathy, lumbar region (Acute) Sacroiliac joint dysfunction of right side (Acute) Sacroiliitis (Acute) Asthma (Acute) WENDY (obstructive sleep apnea) (Acute). Does not use CPAP Morbid obesity (Acute) Swelling of both lower extremities (Acute) Disc degeneration, lumbar (Acute) Adenomatous polyp of colon (Acute) Cervical pain (neck) (Acute) Ibcreased BMI 40.2 Past Medical History Medical History Adenomatous polyp of colon Afib Anxiety Asthma Auditory hallucinations Benign neoplasm breast skin Bursitis, shoulder Calcaneal spur Cervical pain (neck) Depression Disc degeneration, lumbar Dyspepsia Esophagitis GERD (gastroesophageal reflux disease) HTN (hypertension) Hx of flexible sigmoidoscopy Hyperlipidemia Hypertensive urgency Impaired glucose tolerance Morbid obesity WENDY (obstructive sleep apnea) Osteoarthritis of left hip PAF (paroxysmal atrial fibrillation) Palpitations Sacroiliac joint dysfunction of right side Sacroiliitis Spondylosis without myelopathy or radiculopathy, lumbar region Swelling of both lower extremities Xanthelasma Family History Family History Father CVD (cardiovascular disease) HTN (hypertension) Diabetes Mother HTN (hypertension) Diabetes CVD (cardiovascular disease) Brother Pacemaker Maternal Grandmother Throat cancer Brother No problems noted. Daughter Hx LEEP (loop electrosurgical excision procedure), cervix, Other Mental health disorder Substance use disorder Family history of problems with anesthesia: No Surgical History Surgical History H/O esophagogastroduodenoscopy (09/01/15) History of hysterectomy History of removal of cyst Hx of cholecystectomy Hx of colonoscopy Status post Margarita fundoplication (10/27/12) History of Problems with Anesthesia: No Social History Social History Household Members: None Housing: House Are you a primary healthcare technician to a significant other at home: No Alcohol intake: unknown Patient Tobacco Use Status: Never used Tobacco e-Cigarette/Vaping Use: Never Used Second Hand Smoke Exposure: No Use of substances other than those prescribed or required for medical reasons: No Are you DNR?: No Advance Directives: Yes Advance Directives on File: Yes Advance Directives Date on File: 03/16/21 Current occupational status: disabled Sexual orientation: Straight/Heterosexual Gender identity: Female Cognitive needs: No Hearing needs: No Vision needs: No Meds Allergies Allergy/AdvReac Type Severity Reaction Status Date / Time ibuprofen [IBUPROFEN] Allergy Mild RASH, Verified 01/11/23 11:55 hives, hives Home Medications Medication Instructions Recorded Confirmed Last Taken Type aripiprazole 5 mg tablet 5 mg PO DAILY 08/23/20 01/21/23 01/26/23 08:30 History buspirone 15 mg tablet 15 mg PO BID 08/23/20 01/21/23 01/26/23 08:30 History spironolactone 25 mg tablet 25 mg PO BID 08/23/20 01/21/23 Unknown History sertraline 100 mg tablet 100 mg PO DAILY 05/26/21 01/21/23 01/26/23 08:30 History naloxone 4 mg/actuation nasal 4 mg intranasal Q2M PRN as directed 04/28/22 01/11/23 Unknown History spray (Narcan) zolpidem 5 mg tablet 5 mg PO BEDTIME PRN Sleep 06/10/22 01/21/23 Unknown History Exam Height,Weight and Vital Signs: Height 5 ft 2 in Weight 99.79 kg Vital Signs Temp Pulse Resp BP Pulse Ox O2 Del Method 01/26/23 11:02 97.5 F 64 16 101/63 99 Room Air Airway Mallampati Class: II TM Dist: >3cm Neck ROM: Full Loose/Missing/Broken Teeth: No (Denies broken, loose teeth. Missing molar) Heart: RRR Lungs: CTAB Assessment and Plan Assessment Anesthesia Assessment: Anesthesia Plan Discussed Final Anesthetic Review Family History of Problems with Anesthesia: No History of Problems with Anesthesia: No NPO: Yes ASA Class: III Final Preanesthetic Review: No Changes in Pt Med Stat, Meds/Allgs Chart Reviewed, Consent Obtained/Reviewed and Anes Risks/Benef Reviewed Patient Risk: Intermediate Procedure Risk: Low Assessment/Block/Sedation in SS: Assess/Block/Sedation-SS Anesthetic Plan Anesthetic Plan: MAC: Disposition: Standard PACU
[2023-01-26 11:02] VITALS: BP 101/63; PULSE 64; RESP 16; TEMP 36.4; O2SAT 99
[2023-01-26] MEDS: Lactated Ringers 1,000 ML 100 ML IVCONT (11:10)
--- NOTE | 2023-01-26 11:41 | MHC.SHP ---
Pre-Procedural Eval Section A Date of Service: 01/26/23 The History & Physical has been completed within 30 days and I have reviewed it.: Yes Section B Chief Complaint: melena,hematemesis Allergies: Allergies Allergy/AdvReac Type Severity Reaction Status Date / Time ibuprofen [IBUPROFEN] Allergy Mild RASH, Verified 01/11/23 11:55 hives, hives Plan Diagnosis/Plan: Unchanged I have reviewed the history and physical and performed a pertinent physical examination on my patient. No changes have occurred unless specified. Time Spent With Patient Time: Total time managing care of this patient today ____ minutes.
--- NOTE | 2023-01-26 12:13 | P.OP_ITS ---
Operative Note Operative Note Date of Service: 01/26/23 Narrative: Procedure: Esophagogastroduodenoscopy Endoscopist: Zoey Seaman MD Indication: Melena, hematemesis Anesthesia Provider: Jennyfer Robbins CRNA Anesthesia Type: MAC ?? EGD Procedure:?? The procedure, indications, preparation and potential complications were reviewed with the patient, who indicated understanding and gave written informed consent to proceed. A physical exam was performed. The endoscope was introduced through the mouth, and advanced to the proximal jejunum. The mucosa was carefully examined on slow withdrawal of the endoscope. The patient tolerated the procedure well. There were no immediate complications.? ? EGD Findings:? * Esophagus:? Severe esophagitis noted at the GEJ at 34 cm. One ulcer with small clot was seen at 6 o clock position. The ulcer started oozing after the clot was flushed off. A resolution 360 Endoclip was placed for hemostasis. The Z line was at 34 cm. Hiatal hernia was noted with diaphragmatic pinch at 36 cm. * Stomach: Scattered erosions and heme were noted mostly in the body and antrum. Random gastric biopsies were taken to rule out H Pylori infection. * Duodenum: A focal area with villous effacement and erythema was noted in the 2nd portion of the duodenum. Cold forceps biopsies were taken. Remaining duodenum normal. ? EGD Impressions:? * Severe esophagitis with ulcer (endoclip) * Gastritis (biopsy) * Normal duodenum (biopsy) ?? Recommendations:?? * Follow biopsy results. Our office will call or send a letter with results within 7-10 days. * continue omeprazole 20 mg b.i.d. for at least 8 weeks and then decrease to 20 mg per day. * Repeat EGD will be scheduled in 8-10 weeks to assess for healing of esophagitis. * Resume anticoagulation tomorrow. * If H pylori +, patient will be prescribed eradication therapy followed by test of cure. * Avoid NSAIDs. Above has been reviewed with the patient. Relevant educational hand outs were provided at discharge.
[2023-01-26 12:17] VITALS: BP 85/47; PULSE 68; RESP 16; TEMP 36.3; O2SAT 98
[2023-01-26 12:21] VITALS: BP 96/54; O2SAT 100
[2023-01-26] MEDS: Pantoprazole Sodium 40 MG/10 ML VIAL IVPUSH (12:30)
[2023-01-26 13:06] VITALS: BP 136/66; PULSE 63; RESP 18; TEMP 36.1; O2SAT 98
== END 2023-01-26 14:18 | disposition home or self-care (01) ==
PROVIDERS: PCP Nurse Practitioner Family; Visit Provider Internal Medicine
PROC: 0DJ08ZZ Inspection of Upper Intestinal Tract, Via Natural or Artificial Opening Endoscopic (ICD-10-PCS; CPT 43235; principal; 2023-01-26 11:40)
DX: K92.1 Melena (principal); K92.0 Hematemesis; K29.51 Unspecified chronic gastritis with bleeding; K44.9 Diaphragmatic hernia without obstruction or gangrene; K22.70 Barrett's esophagus without dysplasia; K20.80 Other esophagitis without bleeding; K21.9 Gastro-esophageal reflux disease without esophagitis; I10 Essential (primary) hypertension; E78.5 Hyperlipidemia, unspecified; I48.0 Paroxysmal atrial fibrillation; G47.33 Obstructive sleep apnea (adult) (pediatric); J45.909 Unspecified asthma, uncomplicated; R73.01 Impaired fasting glucose; E66.01 Morbid (severe) obesity due to excess calories; Z68.41 Body mass index [BMI] 40.0-44.9, adult; Z79.01 Long term (current) use of anticoagulants; Z79.899 Other long term (current) drug therapy; Z88.8 Allergy status to other drugs, medicaments and biological substances
CPT/HCPCS: 43239; 88305; 88342

== ENCOUNTER 2023-02-03 10:01 | Outpatient (REF) | payer OTHER, SELFPAY ==
--- NOTE | ~2023-02-03 | MM_ITS ---
EXAMINATION: MM SCREENING DIGITAL BREAST TOMOSYNTHESIS, BILATERAL CLINICAL INFORMATION: Screening. Asymptomatic. The lifetime risk of breast cancer based on the Tyrer-Cuzick Model is 4.0%. COMPARISON: Mammography: February 01, 2022 and studies dating back to October 22, 2015 TECHNIQUE: Digital breast tomosynthesis is performed in both the craniocaudal and mediolateral oblique views along with computer-aided detection (CAD). Synthesized 2D images are generated from the tomosynthesis. FINDINGS: There are scattered areas of fibroglandular density (ACR BI-RADS breast composition Category b). There are no new significant masses, abnormal calcifications, or other abnormalities. MM/MM tomosynthesis screening BI IMPRESSION: No significant changes ASSESSMENT: BI-RADS 1: Negative RECOMMENDATION: Routine annual mammography screening. This patient's information was entered into a reminder system with a target due date for their next mammogram.
[2023-02-03 11:02] LABS: MANUAL DIFF FLAG NO
[2023-02-03 11:19] LABS: Basophils Percent Auto 0.5 % (0-2); Eosinophils Absolute Auto 0.2 X10*3/uL (0.0-0.4); Eosinophils Percent Auto 1.9 % (0-4); Hematocrit 39.1 % (37.0-47.0); Hemoglobin 13.2 g/dl (12.0-16.0); Imm Gran Abs Auto 0.03 X10*3/uL (0.00-0.03); Imm Gran Pct Auto 0.4 % (0.0-0.4); Lymphocytes Absolute Auto 1.6 X10*3/uL (1.2-4.9); Lymphocytes Percent Auto 19.8 % (20-40); Mean Corpuscular HGB Conc 33.8 g/dl (31.0-35.0); Mean Corpuscular Hemoglobin 26.9 pg (27.0-33.0); Mean Corpuscular Volume 79.8 fL (80.0-98.0); Mean Platelet Volume 11.4 fL (9.4-12.3); Monocytes Absolute Auto 0.4 X10*3/uL (0.1-1.2); Monocytes Percent Auto 5.1 % (2-11); Neutrophils Absolute Auto 5.8 x10*3/uL (2.0-8.3); Neutrophils Percent Auto 72.3 % (45-73); Platelet Count 352 X10*3/uL (160-400); Red Cell Distribution Width 14.2 % (11.0-16.0)
[2023-02-03 11:38] LABS: Appearance Urine Clear; Color Urine Yellow; Glucose Urine UA Negative (Negative); Leukocyte Esterase Urine Negative (Negative); Nitrite Urine Negative (Negative); UMIC TRIGGER UACC YES; Urine Blood Trace (Negative); Urine Ketones Negative (Negative); Urine Protein 30 (1+) mg/dL (Neg-Trace)
[2023-02-03 11:53] LABS: Alanine Aminotransferase 22 U/L (0-31); Alkaline Phosphatase 127 U/L (39-117); Anion Gap 15 (12-20); Aspartate Amino Transferase 17 U/L (5-31); Bilirubin Total 0.8 mg/dL (0.0-1.0); Blood Urea Nitrogen 29 mg/dL (9-16); Calcium 9.3 mg/dL (8.4-10.2); Carbon Dioxide 24 mmol/L (22-29); Chloride 107 mmol/L (96-108); Cholesterol 213 mg/dL; Estimated Glomerular Filt Rate 40; Glucose Fasting 138 mg/dL (60-99); HDL Cholesterol 53 mg/dL; LDL Cholesterol Calculated 138 mg/dl; Potassium 3.8 mmol/L (3.3-5.1); Sodium 142 mmol/L (135-145); Total Protein 7.1 g/dL (6.5-8.0); Triglycerides 110 mg/dL
[2023-02-03 11:55] LABS: Bacteria Urine None Seen (None Seen); RBC Urine 0-2 /HPF (0-2); Squamous Epithelial Cell Urine 0-2 /HPF (0-2); WBC Urine 0-5 /HPF (0-5)
[2023-02-03 12:37] LABS: TSH reflex Free T4 1.04 uIU/mL (0.32-4.0)
== END 2023-02-03 10:02 | disposition home or self-care (01) ==
LOC: HO.MAMMO 10:01
PROVIDERS: PCP Nurse Practitioner Family; Visit Provider Nurse Practitioner Family
DX: Z12.31 Encounter for screening mammogram for malignant neoplasm of breast (principal); I10 Essential (primary) hypertension; E66.9 Obesity, unspecified
CPT/HCPCS: 36415; 77063; 77067; 80053; 80061; 81001; 84443; 85025

== ENCOUNTER → 2023-02-09 11:20 | Outpatient (BNVA) | payer OTHER, SELFPAY | PROVIDERS: PCP Nurse Practitioner Family; Visit Provider Anesthesiology | DX: M47.816 Spondylosis without myelopathy or radiculopathy, lumbar region (principal); M16.12 Unilateral primary osteoarthritis, left hip; M17.12 Unilateral primary osteoarthritis, left knee; Z79.891 Long term (current) use of opiate analgesic | CPT/HCPCS: 99212 ==

== ENCOUNTER 2023-03-07 10:58 | Outpatient (REF) | payer OTHER, SELFPAY ==
--- NOTE | ~2023-03-07 | XR_ITS ---
EXAMINATION: XR KNEE, LEFT CLINICAL INFORMATION: M17.12 - Unilateral primary osteoarthritis, left knee COMPARISON: None available. TECHNIQUE: Four views of the left knee, including AP view with weightbearing. FINDINGS: There is likely mild narrowing patellofemoral joint. No lateralization or tilting of the patella. The medial and lateral knee joint compartments show no narrowing or erosive change or chondrocalcinosis. No suprapatellar effusion. Hoffa's fat pad appears normal. XR/XR knee LT 4V IMPRESSION: -Medial and lateral knee joint compartments unremarkable. No effusion. -Probable mild narrowing patellofemoral joint. No lateralization or tilting of patella.
[2023-03-07 14:21] LABS: Appearance Urine Clear; Color Urine Yellow; Glucose Urine UA Negative (Negative); Leukocyte Esterase Urine Small (1+) (Negative); Nitrite Urine Negative (Negative); Specific Gravity - Urine 1.015 (1.005-1.025); UMIC TRIGGER UACC YES; Urine Blood Negative (Negative); Urine Ketones Negative (Negative); Urine Protein Negative (Neg-Trace)
[2023-03-07 14:31] LABS: Bacteria Urine None Seen (None Seen); Hyaline Casts Urine 0-2 /LPF (0-2); RBC Urine 0-2 /HPF (0-2); UACC Culture Trigger YES; WBC Urine 0-5 /HPF (0-5)
[2023-03-07 14:36] LABS: Estimated Average Glucose 148 mg/dL; Hemoglobin A1c % 6.8 %
[2023-03-07 14:39] LABS: Alanine Aminotransferase 14 U/L (0-31); Albumin Level 3.8 g/dL (3.5-5.0); Alkaline Phosphatase 116 U/L (39-117); Aspartate Amino Transferase 14 U/L (5-31); Bilirubin Direct 0.2 mg/dL (0.0-0.5); Bilirubin Total 0.6 mg/dL (0.0-1.0); Gamma Glutamyl Transpeptidase 39 U/L (7-33); Total Protein 6.6 g/dL (6.5-8.0)
[2023-03-07 14:44] LABS: Creatinine Urine 78.47 mg/dL; Microalbum/Creatinine Ratio Ur 12.7 ug/mg cr
[2023-03-12 05:38] LABS: Alk.Phos Iso. Macrohepatic 0 % (<=0); Alk.Phos Isoenzymes Bone 47 % (28-66); Alk.Phos Isoenzymes Intest 0 % (1-24); Alk.Phos Isoenzymes Liver 53 % (25-69); Alk.Phos Isoenzymes Placental 0 % (<=0); Alk.Phos Isoenzymes Total 98 U/L (37-153)
== END 2023-03-07 10:59 | disposition home or self-care (01) ==
LOC: HO.HMGCX 10:58
PROVIDERS: PCP Nurse Practitioner Family; Visit Provider Nurse Practitioner Family
DX: E11.9 Type 2 diabetes mellitus without complications (principal); R74.8 Abnormal levels of other serum enzymes; E66.9 Obesity, unspecified; I10 Essential (primary) hypertension; M17.12 Unilateral primary osteoarthritis, left knee; R82.90 Unspecified abnormal findings in urine
CPT/HCPCS: 36415; 73564; 80076; 81001; 82043; 82977; 83036; 84080; 87086

== ENCOUNTER → 2023-03-09 11:21 | Outpatient (BNVA) | payer OTHER, SELFPAY | PROVIDERS: PCP Nurse Practitioner Family; Visit Provider Anesthesiology ==

== ENCOUNTER → 2023-03-16 09:43 | Outpatient (BNVA) | payer OTHER, SELFPAY | PROVIDERS: PCP Nurse Practitioner Family; Visit Provider Nurse Practitioner Family | DX: G47.33 Obstructive sleep apnea (adult) (pediatric) (principal) | CPT/HCPCS: 99202 ==

== ENCOUNTER → 2023-03-17 08:41 | Outpatient (BNVA) | payer OTHER, SELFPAY | PROVIDERS: PCP Nurse Practitioner Family; Visit Provider Internal Medicine Gastroenterology | DX: K21.9 Gastro-esophageal reflux disease without esophagitis (principal); K59.09 Other constipation; K22.70 Barrett's esophagus without dysplasia; K64.8 Other hemorrhoids; R74.8 Abnormal levels of other serum enzymes; R68.81 Early satiety; R10.33 Periumbilical pain; D12.6 Benign neoplasm of colon, unspecified | CPT/HCPCS: 99212 ==

== ENCOUNTER → 2023-03-21 12:43 | Outpatient (BNVA) | payer OTHER, SELFPAY | PROVIDERS: PCP Nurse Practitioner Family; Visit Provider Internal Medicine Cardiovascular Disease | DX: I48.0 Paroxysmal atrial fibrillation (principal); I10 Essential (primary) hypertension | CPT/HCPCS: 99212 ==

== ENCOUNTER → 2023-04-06 12:00 | Outpatient (BNVA) | payer OTHER, SELFPAY | PROVIDERS: PCP Nurse Practitioner Family; Visit Provider Registered Nurse Emergency | DX: Z51.81 Encounter for therapeutic drug level monitoring (principal); F11.20 Opioid dependence, uncomplicated; M47.816 Spondylosis without myelopathy or radiculopathy, lumbar region; M16.12 Unilateral primary osteoarthritis, left hip; M17.12 Unilateral primary osteoarthritis, left knee | CPT/HCPCS: 99212 ==

== ENCOUNTER 2023-04-07 10:36 | Day surgery (SDC) | payer OTHER, SELFPAY ==
[2023-04-07 11:31] VITALS: BMI 40.1
[2023-04-07 12:16] VITALS: BP 164/76; PULSE 66; RESP 16; TEMP 36.5; O2SAT 99
--- NOTE | 2023-04-07 12:59 | MHC.SHP ---
Pre-Procedural Eval Section A Date of Service: 04/07/23 The patient is an INPATIENT: No Changes since office visit: Yes Patient answered all questions; No Cold of Flu in the past 2 weeks, No New Medical Problems and No Changes in Medication The History & Physical has been completed within 30 days and I have reviewed it.: Yes Section B Chief Complaint: GERD,Early satiety,Lynch's esophagus without Allergies: Allergies Allergy/AdvReac Type Severity Reaction Status Date / Time ibuprofen [IBUPROFEN] Allergy Mild RASH, Verified 04/06/23 12:07 hives, hives Plan I have reviewed the history and physical and performed a pertinent physical examination on my patient. No changes have occurred unless specified. Time Spent With Patient Time: Total time managing care of this patient today ____ minutes.
--- NOTE | 2023-04-07 13:00 | P.CONAN_ITS ---
HPI - Anesthesia Eval Consult details Narrative: for EGD. PMFSH Active Problems Active Problems: All Active Problems (Updated 02/09/23 @ 12:29 by Mu Goldstein MD) Arthritis of left knee (Acute) Elevated alkaline phosphatase level (Acute) Diabetes (Acute) Patellofemoral arthralgia of both knees (Acute) Obesity (Acute) Foot pain, bilateral (Acute) GERD (gastroesophageal reflux disease) (Acute) Early satiety (Acute) Chronic constipation (Acute) Vaginal lesion (Acute) HTN (hypertension) (Acute) Paroxysmal atrial fibrillation (Acute) Bacterial vaginosis (Acute) Bilateral primary osteoarthritis of knee (Acute) Spondylosis of lumbosacral spine with radiculopathy (Acute) Pain and swelling of knee (Acute) Continuous periumbilical abdominal pain (Acute) Dyslipidemia (Acute) Elevated fasting blood sugar (Acute) Lynch's esophagus without dysplasia (Acute) Right otitis media (Acute) HTN (hypertension) (Acute) Cough (Acute) Physical exam (Acute) Postmenopausal (Acute) Bilateral hip pain (Acute) Sacroiliac joint pain (Acute) Somatic dysfunction of right sacroiliac joint (Acute) Viral illness (Acute) Otitis media, right (Acute) Sciatica (Acute) HTN (hypertension) (Acute) Uncontrolled hypertension (Acute) Elevated fasting blood sugar (Acute) Acute pharyngitis (Acute) Microscopic hematuria (Acute) GERD (gastroesophageal reflux disease) (Acute) Hemorrhoids, internal, with bleeding (Acute) Arthritis of left hip (Acute) HTN (hypertension) (Acute) Sleep apnea (Acute) Melena (Acute) Melena (Acute) Hematemesis (Acute) Osteoarthritis of left hip (Acute) Spondylosis without myelopathy or radiculopathy, lumbar region (Acute) Sacroiliac joint dysfunction of right side (Acute) Sacroiliitis (Acute) Asthma (Acute) WENDY (obstructive sleep apnea) (Acute) Morbid obesity (Acute) Swelling of both lower extremities (Acute) Disc degeneration, lumbar (Acute) Adenomatous polyp of colon (Acute) Cervical pain (neck) (Acute) Past Medical History Medical History Adenomatous polyp of colon Afib Anxiety Asthma Auditory hallucinations Benign neoplasm breast skin Bursitis, shoulder Calcaneal spur Cervical pain (neck) Depression Disc degeneration, lumbar Dyspepsia Esophagitis GERD (gastroesophageal reflux disease) HTN (hypertension) Hx of flexible sigmoidoscopy Hyperlipidemia Hypertensive urgency Impaired glucose tolerance Morbid obesity WENDY (obstructive sleep apnea) Osteoarthritis of left hip PAF (paroxysmal atrial fibrillation) Palpitations Sacroiliac joint dysfunction of right side Sacroiliitis Spondylosis without myelopathy or radiculopathy, lumbar region Swelling of both lower extremities Xanthelasma Family History Family History Father CVD (cardiovascular disease) HTN (hypertension) Diabetes Mother HTN (hypertension) Diabetes CVD (cardiovascular disease) Brother Pacemaker Maternal Grandmother Throat cancer Brother No problems noted. Daughter Hx LEEP (loop electrosurgical excision procedure), cervix, Other Mental health disorder Substance use disorder Family history of problems with anesthesia: No Surgical History Surgical History H/O esophagogastroduodenoscopy (09/01/15) History of hysterectomy History of removal of cyst Hx of cholecystectomy Hx of colonoscopy Status post Margarita fundoplication (10/27/12) History of Problems with Anesthesia: No Social History Social History Household Members: None Housing: House Are you a primary hearing care practitioner to a significant other at home: No Alcohol intake: unknown Patient Tobacco Use Status: Never used Tobacco e-Cigarette/Vaping Use: Never Used Second Hand Smoke Exposure: No Use of substances other than those prescribed or required for medical reasons: No Advance Directives: No Advance Directives Information Provided: Yes Advance Directives Date on File: 03/16/21 Current occupational status: disabled Sexual orientation: Straight/Heterosexual Gender identity: Female Cognitive needs: No Hearing needs: No Vision needs: No Meds Allergies Allergy/AdvReac Type Severity Reaction Status Date / Time ibuprofen [IBUPROFEN] Allergy Mild RASH, Verified 04/06/23 12:07 hives, hives Home Medications Medication Instructions Recorded Confirmed Last Taken Type aripiprazole 5 mg tablet 5 mg PO DAILY 08/23/20 03/21/23 01/26/23 08:30 History buspirone 15 mg tablet 15 mg PO BID 08/23/20 03/21/23 01/26/23 08:30 History spironolactone 25 mg tablet 25 mg PO BID 08/23/20 03/21/23 Unknown History sertraline 100 mg tablet 100 mg PO DAILY 05/26/21 03/21/23 01/26/23 08:30 History naloxone 4 mg/actuation nasal 4 mg intranasal Q2M PRN as directed 04/28/22 03/21/23 Unknown History spray (Narcan) zolpidem 5 mg tablet 5 mg PO BEDTIME PRN Sleep 06/10/22 03/21/23 Unknown History Exam Exam Date and Time: April 07, 2023 1300 Height,Weight and Vital Signs: Height 5 ft 2 in Weight 99.337 kg Last Vital Signs Temp 97.7 F 04/07/23 12:16 Pulse 66 04/07/23 12:16 Resp 16 04/07/23 12:16 BP 164/76 H 04/07/23 12:16 Pulse Ox 99 04/07/23 12:16 O2 Del Method Room Air 04/07/23 12:16 Airway Mallampati Class: I TM Dist: <=3cm Neck ROM: Full Heart: ok Lungs: ok Assessment and Plan Assessment Anesthesia Assessment: Anesthesia Plan Discussed and Chart Reviewed Final Anesthetic Review Family History of Problems with Anesthesia: No History of Problems with Anesthesia: No NPO: Yes ASA Class: III and IV Final Preanesthetic Review: No Changes in Pt Med Stat, Meds/Allgs Chart Reviewed, Consent Obtained/Reviewed and Anes Risks/Benef Reviewed Patient Risk: High Procedure Risk: High Anesthetic Plan Anesthetic Plan: MAC: and Agree w/ Assess. and Plan Disposition: Standard PACU
--- NOTE | 2023-04-07 13:03 | W.PM.OPN ---
Operative Note Operative Note Date of Service: 04/07/23 Narrative: FLEXIBLE TRANSORAL UPPER GASTROINTESTINAL ENDOSCOPY WITH BIOPSIES Pre-op diagnosis: FU of esophagitis Post-op diagnosis: GERD Endoscopist:? Mara Burger MD Anesthesia:?MAC Consent: Indications for the procedure and potential complications of bleeding, perforation, reaction to medications and missed diagnosis were discussed with the patient and informed consent was obtained. Instrument: Olympus GIF H 190 mid size upper endoscope Monitoring: Vital signs and clinical assessment, continuous EKG monitoring, Pulse oximetry, Carbon Dioxide monitoring and blood pressure monitoring were done throughout the procedure. Procedure: The patient was placed in the left lateral decubitis position and pre-procedure medications were administered and a bite block was placed. The endoscope was inserted into the mouth and advanced under direct vision to the third part of duodenum. A careful inspection was made as the upper endoscope was withdrawn including a retroflexed examination of the proximal stomach; Findings and interventions are described below. Findings: Larynx: Normal Esophagus: GE junction at 35 cms.? Esophagitis seen on last EGD has healed. GE junction with 1 cms tongue of Lynch's - biopsied. Stomach:?Mild gastric erythema. Biopsies obtained during last EGD were negative for H Pylori. Grade 2 flap valve and intact fundal wrap on retroflexed examination of the cardia. Duodenum:?Normal bulb and descending duodenum.? Impression and Post Procedure Diagnosis: Endoscopy Findings: ESOPHAGUS: Esophagitis seen on last EGD has healed. GE junction with 1 cms tongue of Lynch's - biopsied. STOMACH: Mild gastritis Plan: Await pathology results Patient has an appointment on 06/30/23 in the GI Clinic with Mara Burger M.D. Above findings were reviewed with the patient.
[2023-04-07 13:38] VITALS: BP 108/63; PULSE 79; RESP 18; TEMP 37.2; O2SAT 98
[2023-04-07 13:53] VITALS: BP 156/76; PULSE 68; RESP 18; TEMP 37.2; O2SAT 98
== END 2023-04-07 14:10 | disposition home or self-care (01) ==
PROVIDERS: PCP Nurse Practitioner Family; Visit Provider Internal Medicine Gastroenterology
PROC: 0DJ08ZZ Inspection of Upper Intestinal Tract, Via Natural or Artificial Opening Endoscopic (ICD-10-PCS; CPT 43235; principal; 2023-04-07 12:30)
DX: K21.9 Gastro-esophageal reflux disease without esophagitis (principal); K22.70 Barrett's esophagus without dysplasia; R68.81 Early satiety; K29.70 Gastritis, unspecified, without bleeding; K44.9 Diaphragmatic hernia without obstruction or gangrene; G47.33 Obstructive sleep apnea (adult) (pediatric); J45.909 Unspecified asthma, uncomplicated; I10 Essential (primary) hypertension; E78.5 Hyperlipidemia, unspecified; I48.0 Paroxysmal atrial fibrillation; R73.02 Impaired glucose tolerance (oral); R44.0 Auditory hallucinations; Z79.01 Long term (current) use of anticoagulants; Z79.51 Long term (current) use of inhaled steroids; Z79.899 Other long term (current) drug therapy; Z88.8 Allergy status to other drugs, medicaments and biological substances
CPT/HCPCS: 43239; 88305; J3010

== ENCOUNTER → 2023-04-12 10:51 | Outpatient (REF) | payer OTHER, SELFPAY | LOC: HO.SL 10:51 | PROVIDERS: PCP Nurse Practitioner Family; Visit Provider Nurse Practitioner Family | DX: I10 Essential (primary) hypertension (principal); G47.33 Obstructive sleep apnea (adult) (pediatric); E11.9 Type 2 diabetes mellitus without complications | CPT/HCPCS: 95806 ==

== ENCOUNTER → 2023-05-04 12:53 | Outpatient (BNVA) | payer OTHER, SELFPAY | PROVIDERS: PCP Nurse Practitioner Family; Visit Provider Registered Nurse Emergency | DX: Z51.81 Encounter for therapeutic drug level monitoring (principal); F11.20 Opioid dependence, uncomplicated; M47.816 Spondylosis without myelopathy or radiculopathy, lumbar region; M16.12 Unilateral primary osteoarthritis, left hip; M17.12 Unilateral primary osteoarthritis, left knee | CPT/HCPCS: 99212 ==

== ENCOUNTER → 2023-05-05 09:49 | Outpatient (REF) | payer OTHER, SELFPAY ==
--- NOTE | 2023-05-05 09:55 | CA_ITS ---
Transthoracic Echocardiogram Patient (Last, First, Middle): Nydia Hammonds, Gender: Female Date of : 1965 Age: 58 Procedure Date: 05/05/2023 Procedure Type: Transthoracic Echocardiogram Location: OP Height: 157.48 cm Weight: 99.34 kg BSA: 1.99 m2 Heart Rate: bpm BP: 140 / 76 mmHg Fountain Dispenser: TO Referring MD: Pritesh Lebron MD Admitting Manager: Pritesh Lebron MD Symptoms: I48.0 - Paroxysmal atrial fibrillation Study Quality: Fair ECG Rhythm: Sinus Conclusions: - 1. Normal LV systolic function with normal filling pattern 2. Normal cardiac valvular Dopplers 3. Normal RV systolic pressure 4. No gross pericardial effusion Findings Left Ventricle Normal left ventricular size, thickness, and systolic function. The visually estimated ejection fraction is between 60-65%. Spectral Doppler is indicative of a normal filling pattern. Peak GLS is -17.5%, borderline normal. Right Ventricle Normal right ventricular cavity size and systolic function. Atria The left atrium is normal in size. Interatrial shunt cannot be excluded. The right atrium is normal in size. Aortic Valve Normal aortic valve structure and function. There is no aortic valve stenosis. There is no aortic valve regurgitation. Mitral Valve There is mild anterior mitral leaflet thickening. There is mild mitral annular calcification. There is trace mitral valve regurgitation. There is no mitral valve stenosis. Pulmonic Valve The pulmonic valve is likely normal. There is trace pulmonic valve regurgitation. Tricuspid Valve Normal tricuspid valve structure. There is trace tricuspid valve regurgitation. The right ventricular systolic pressure is normal. The right ventricular systolic pressure is 29 mmHg. Normal right atrial pressure. There is no evidence of pulmonary hypertension. Great Vessels All visible segments of the aorta are normal in size. The pulmonary artery was not well visualized. Venous The inferior vena cava is normal in size and collapses greater than 50% with inspiration. Pericardium/Pleural There is no evidence of pericardial effusion. Prior Study Comparison No significant change compared to prior study dated: 09/25/2021. Measurements 2D Linear Measurements IVSd: 1.19 0.6-0.9/0.6-1.0 cm LVIDd: 4.43 3.9-5.3/4.2-5.9 cm LVIDd Index: 2.23 2.4-3.2/2.2-3.1 cm/m2 LVIDs: 2.23 2.0-3.6 cm LVPWd: 0.98 0.7-1.1 cm LA Diam: 3.80 2.7-3.8/3.0-4.0 cm LAIDs Index: 1.91 1.5-2.3 cm/m2 LV Mass: 209.12 67-162/88-224 g LV Mass Index: 105.09 43-95/49-115 g/m2 LVOT Diam: 2.00 3.0+(-)1.3 cm 2D Systolic Function EF 4C: 61.10 >55% EF 2C: 64.80 >55% EF BiP: 61.50 >55% Mitral Valve MV Pk E: 0.68 MV PK A: 0.42 MV Decel Time: 242.00 E/A: 1.60 E'Lateral: 8.16 E'Medial: 6.85 E/E' Med: 9.90 E/E' Lat: 8.30 PHT: 71.00 MVA PHT: 3.10 Decel Florence: 2.81 Aortic Valve AoV Pk Bertrand: 1.66 AoV Mn Bertrand: 1.17 AoV VTI: 0.41 AoV Pk Grad: 11.00 Aov Mn Grad: 6.00 BRITT Cont.VTI: 1.83 AI Pk Bertrand: 4.59 AI Florence: 1.94 LVOT LVOT Pk Bertrand: 0.88 LVOT Mn Bertrand: 0.61 LVOT VTI: 0.24 LVOT Pk Grad: 3.00 LVOT Mn Grad: 2.00 LVOT Diam: 2.00 LVOT Area: 3.14 Diastolic Function MV Pk E: 0.68 MV Pk A: 0.42 E/A: 1.60 E'Medial: 6.85 E/E' Med: 9.90 E' Laterial: 8.16 E/E' Lat: 8.30 Right Ventricle TAPSE (mm): 23.00 TVS' Bertrand: 11.90 Tricuspid Valve TR Pk Bertrand: 2.55 TR Pk Grad: 26.00 RA Press: 3.00 RVSP: 29.00 Great Vessels Aorta Sinus of Valsalva: 2.94 2.0-3.5 cm Ao Asc: 3.40 2.1-3.4 cm Ao Arch: 3.20 Updated in Other Vendor System with Status of Final Pritesh Lebron MD electronically signed on 05/07/2023 12:53:31 PM with status of Final
--- NOTE | 2023-05-05 09:55 | HM_ITS ---
Conclusion: 1. Patient was monitored for total period of 7 days and 23 hours 2. Baseline was normal sinus rhythm with average heart of 76 beats per minute 3. No significant pauses noted 4. Occasional PACs and PVCs noted 5. 53 short episodes of SVT noted with longest 12 beats and the fastest 180 beats per minute 6. No patient reported events MTDD
== END ==
LOC: HO.CARD 09:49
PROVIDERS: PCP Nurse Practitioner Family; Visit Provider Internal Medicine Cardiovascular Disease
DX: I48.0 Paroxysmal atrial fibrillation (principal)
CPT/HCPCS: 93242; 93306; 93356

== ENCOUNTER 2023-06-01 13:00 | Outpatient (AMB) | payer OTHER, SELFPAY ==
[2023-06-01 13:12] VITALS: BP 176/84; PULSE 78; RESP 14; O2SAT 95; BMI 39.2
--- NOTE | 2023-06-01 13:12 | A.OFFVIS_ITS ---
Intake Vital Signs 06/01/23 13:12 Height 5 ft 2 in Weight 214 lb 6 oz BMI 39.2 BP 176/84 H Blood Pressure Location Lt brachial Position Sitting Respiration 14 Pulse 78 Pulse Source Pulse Oximeter Pulse Oximetry (%) 95 Oxygen Delivery Method Room Air Intake Visit Reasons: Pill count Allergies ibuprofen [IBUPROFEN] Allergy (Mild, Verified 06/01/23 13:13) RASH, hives, hives HPI HPI Comments History of Present Illness Details Nydia is a pleasant 58 year old female who presents to the office for follow up chronic pain and chronic opioid therapy management. Patient is prescribed oxycodone 5mg tabs, take one tablet by mouth twice daily as needed for pain. Patient arrived today with the expectation of having 0 pills, she presented 0 pills. This demonstrates responsible attitude toward pat ient's opioid medications. Pain is reported today as 7/10 and last dose of pain medication was taken yesterday evening. Pain is adequately managed on current opioid regimen. Patient denies any recent changes or exacerbations of her chronic back pain and states she is able to engage in activities of daily living with minimal interruption due to chronic pain. Patient denies side effects including somnolence, constipation, itching, dyspnea, rash, dizziness or weakness. Patient does endorse burning pain to the bottom of both feet. She states that this is intermittent and has happened several times recently. She also reports feeling like the bottom of her feet are squishy when she walks. Patient is known diabetic, most recent A1c was 6.8 03/07/2023. She has follow up appointment in 2 weeks for recheck. She denies any recent high or low readings. Prior: Nydia presents to the office today for follow up chronic back pain and management of her chronic opioid therapy. Patient is prescribed oxycodone 5mg tabs, take 1 tablet by mouth twice daily as needed for pain. Patient arrived today with the expectation of having 1.5 pills, she presented 40 pills which were counted in the presence of 2 staff and return to the patient in the original prescription bottle. This demonstrates responsible attitude toward patient's opioid medications. Pain is reported today as 6/10 and last dose of pain medication was taken last night at midnight. Pain is adequately managed on current opioid regimen as patient presents with excess pills. She reports that she takes the medication as needed, does not take daily because she has several family members that from pills and she wants to use them only for severe pain. ? ? PFSH Medical History Adenomatous polyp of colon Afib Anxiety Asthma Auditory hallucinations Barretts esophagus Benign neoplasm breast skin Bursitis, shoulder Calcaneal spur Cervical pain (neck) Depression Disc degeneration, lumbar Dyspepsia Esophagitis GERD (gastroesophageal reflux disease) HTN (hypertension) Hx of flexible sigmoidoscopy Hyperlipidemia Hypertensive urgency Impaired glucose tolerance Morbid obesity WENDY (obstructive sleep apnea) Osteoarthritis of left hip PAF (paroxysmal atrial fibrillation) Palpitations Sacroiliac joint dysfunction of right side Sacroiliitis Spondylosis without myelopathy or radiculopathy, lumbar region Swelling of both lower extremities Xanthelasma Surgical History H/O esophagogastroduodenoscopy (09/01/15) History of hysterectomy History of removal of cyst Hx of cholecystectomy Hx of colonoscopy Status post Margarita fundoplication (10/27/12) Family History Father CVD (cardiovascular disease) HTN (hypertension) Diabetes Mother HTN (hypertension) Diabetes CVD (cardiovascular disease) Brother Pacemaker Maternal Grandmother Throat cancer Brother No problems noted. Daughter Hx LEEP (loop electrosurgical excision procedure), cervix, Other Mental health disorder Substance use disorder Social History Household Members: None Housing: House Are you a primary grounds caretaker to a significant other at home: No Alcohol intake: unknown Patient Tobacco Use Status: Never used Tobacco e-Cigarette/Vaping Use: Never Used Second Hand Smoke Exposure: No Advance Directives Date on File: 03/16/21 Current occupational status: disabled Sexual orientation: Straight/Heterosexual Gender identity: Female Cognitive needs: No Hearing needs: No Vision needs: No Review of Systems Const All systems reviewed & are unremarkable except as noted in HPI and below Neuro Details: endorses burning pain plantar surfaces bilateral feet Physical Exam Vital Signs: Last Vital Signs Pulse 78 06/01/23 13:12 Resp 14 06/01/23 13:12 BP 176/84 H 06/01/23 13:12 Pulse Ox 95 06/01/23 13:12 Oxygen Delivery Method Room Air 06/01/23 13:12 BMI result Body Mass Index 39.2 Const Other: moderately uncomfortable General: no acute distress Orientation/consciousness: patient oriented x3 Resp Effort & Inspection: normal respiratory effort and able to speak in complete sentences Back/Spine/Pelvis Other: Patient demonstrates waddling gait. There is also a component of antalgic gait on the right. Patient ambulates with cane. Neuro General: patient oriented x3 Psych Appearance: well kempt Affect: normal affect Attitude: cooperative Thought process: Normal thought process present Thought content: Normal thought content present Insight: Good insight present (Psych) Judgement: Good judgement present (Psych) Assessment & Plan Assessment & Plan (1) Neuropathy: Comment: bilateral feet Code(s): G62.9 - Polyneuropathy, unspecified (2) Osteoarthritis of left hip: Code(s): M16.12 - Unilateral primary osteoarthritis, left hip (3) Arthritis of left knee: Code(s): M17.12 - Unilateral primary osteoarthritis, left knee Plan Masspat was reviewed and without concerns, pill count without concerns. No obvious signs of diversion, abuse or misuse of the opioid medication. Refill of Oxycodone 5mg tabs #45 no refills, take one tablet twice daily as needed for pain sent to pharmacy today. EMG ordered to evaluate neuropathy. Patient to follow-up in the office in 1 month, sooner if needed. All questions and concerns have been answered and patient agrees with the plan. Orders: Orders NE electromyogram (EMG) Today G62.9 - Polyneuropathy, unspecified Medications: Refilled oxycodone 5 mg PO BID 30 days PRN 45 tabs 0RF pain M46.1 - Sacroiliitis, not elsewhere classified, M54.30 - Sciatica, unspecified side Coding Level of Care Code Est Pt Level 3 (44307) Diagnoses Neuropathy G62.9 Osteoarthritis of left hip M16.12 Arthritis of left knee M17.12
== END 2023-06-01 13:13 | disposition home or self-care (01) ==
PROVIDERS: PCP Nurse Practitioner Family; Visit Provider Registered Nurse Emergency
DX: G62.9 Polyneuropathy, unspecified (principal); M16.12 Unilateral primary osteoarthritis, left hip; M17.12 Unilateral primary osteoarthritis, left knee; Z79.891 Long term (current) use of opiate analgesic
CPT/HCPCS: 99213

== ENCOUNTER → 2023-06-01 13:00 | Outpatient (BNVA) | payer OTHER, SELFPAY | PROVIDERS: PCP Nurse Practitioner Family; Visit Provider Registered Nurse Emergency | DX: Z51.81 Encounter for therapeutic drug level monitoring (principal); F11.20 Opioid dependence, uncomplicated; G62.9 Polyneuropathy, unspecified; M16.12 Unilateral primary osteoarthritis, left hip; M17.12 Unilateral primary osteoarthritis, left knee | CPT/HCPCS: 99212 ==

== ENCOUNTER 2023-06-22 08:03 | Outpatient (REF) | payer OTHER, SELFPAY ==
--- NOTE | 2023-06-22 08:06 | EMG_ITS ---
Please see scanned EMG / Nerve Conduction Report. MTDD
== END 2023-06-22 08:04 | disposition home or self-care (01) ==
LOC: HO.NEURO 08:03
PROVIDERS: PCP Nurse Practitioner Family; Visit Provider Registered Nurse Emergency
DX: G62.9 Polyneuropathy, unspecified (principal); R20.0 Anesthesia of skin; R20.2 Paresthesia of skin; M79.671 Pain in right foot; M79.672 Pain in left foot
CPT/HCPCS: 95860; 95885; 95907; 95913

== ENCOUNTER 2023-06-29 12:54 | Outpatient (AMB) | payer OTHER, SELFPAY ==
--- NOTE | 2023-06-29 13:00 | A.OFFVIS_ITS ---
Intake Vital Signs 06/29/23 13:01 Height 5 ft 2 in Weight 214 lb 8 oz BMI 39.2 BP 126/64 Blood Pressure Location Rt brachial Respiration 14 Pulse 78 Pulse Source Pulse Oximeter Pulse Oximetry (%) 96 Oxygen Delivery Method Room Air Intake Visit Reasons: Pill Count Allergies ibuprofen [IBUPROFEN] Allergy (Mild, Verified 06/29/23 13:01) RASH, hives, hives HPI HPI Comments History of Present Illness Details Nydia is a pleasant 58 year old female who presents to the office today for follow up chronic pain and chronic opioid therapy management. Patient is prescribed oxycodone 5mg tabs, take one tablet by mouth twice daily as needed for pain. Patient arrived today with the expectation of having 5 pills, she presented 17 pills. This demonstrates responsible attitude toward patient's opioid medications. Pain is reported today as 6/10 and last dose of pain medication was taken at 9am. Pain is adequately managed on current opioid regimen. Patient denies any recent changes or exacerbations of her chronic back pain and states she is able to engage in activities of daily living with minimal interruption due to chronic pain. Patient denies side effects including somnolence, constipation, itching, dyspnea, rash, dizziness or weakness. Today patient also complains of pain in right hip, worse with movement and with sitting. States she has to sit sideways with her weight on the right to alleviate the pain. She continues with burning pain to the bottom of her feet. Had recent EMG, results reviewed with patient. She has a follow up with pcp this month for her diabetes. Most recent A1c was 6.8 03/07/2023. She denies any recent high or low readings. ? ? PFSH Medical History (Reviewed 06/01/23 @ 13:28 by Erin Bates, PLASTIC PRODUCTION MACHINE SETTER, INDUSTRIAL TWISTING MACHINE OPERATOR) Adenomatous polyp of colon Afib Anxiety Asthma Auditory hallucinations Barretts esophagus Benign neoplasm breast skin Bursitis, shoulder Calcaneal spur Cervical pain (neck) Depression Disc degeneration, lumbar Dyspepsia Esophagitis GERD (gastroesophageal reflux disease) HTN (hypertension) Hx of flexible sigmoidoscopy Hyperlipidemia Hypertensive urgency Impaired glucose tolerance Morbid obesity WENDY (obstructive sleep apnea) Osteoarthritis of left hip PAF (paroxysmal atrial fibrillation) Palpitations Sacroiliac joint dysfunction of right side Sacroiliitis Spondylosis without myelopathy or radiculopathy, lumbar region Swelling of both lower extremities Xanthelasma Surgical History H/O esophagogastroduodenoscopy (09/01/15) History of hysterectomy History of removal of cyst Hx of cholecystectomy Hx of colonoscopy Status post Margarita fundoplication (10/27/12) Family History Father CVD (cardiovascular disease) HTN (hypertension) Diabetes Mother HTN (hypertension) Diabetes CVD (cardiovascular disease) Brother Pacemaker Maternal Grandmother Throat cancer Brother No problems noted. Daughter Hx LEEP (loop electrosurgical excision procedure), cervix, Other Mental health disorder Substance use disorder Social History Household Members: None Housing: House Are you a primary physician locums urgent care to a significant other at home: No Alcohol intake: unknown Patient Tobacco Use Status: Never used Tobacco e-Cigarette/Vaping Use: Never Used Second Hand Smoke Exposure: No Advance Directives Date on File: 03/16/21 Current occupational status: disabled Sexual orientation: Straight/Heterosexual Gender identity: Female Cognitive needs: No Hearing needs: No Vision needs: No Review of Systems Const All systems reviewed & are unremarkable except as noted in HPI and below Physical Exam Vital Signs: Last Vital Signs Pulse 78 06/29/23 13:01 Resp 14 06/29/23 13:01 BP 126/64 06/29/23 13:01 Pulse Ox 96 06/29/23 13:01 Oxygen Delivery Method Room Air 06/29/23 13:01 BMI result Body Mass Index 39.2 Const Other: moderately uncomfortable General: no acute distress Orientation/consciousness: patient oriented x3 Resp Effort & Inspection: normal respiratory effort and able to speak in complete sentences Back/Spine/Pelvis Other: Antalgic gait on the right. Patient ambulates with cane. Neuro General: patient oriented x3 Extrem Left lower extremity: hip/thigh Details: tenderness and abnormal ROM Details: pain with active ROM Details: with ADduction, with ABduction, with internal rotation and with external rotation Psych Appearance: well kempt Affect: normal affect Attitude: cooperative Thought process: Normal thought process present Thought content: Normal thought content present Insight: Good insight present (Psych) Judgement: Good judgement present (Psych) Results Reviewed Results Reviewed: Assessment & Plan Assessment & Plan (1) Neuropathy: Comment: bilateral feet Code(s): G62.9 - Polyneuropathy, unspecified (2) Osteoarthritis of left hip: Code(s): M16.12 - Unilateral primary osteoarthritis, left hip (3) Arthritis of left knee: Code(s): M17.12 - Unilateral primary osteoarthritis, left knee Plan Masspat was reviewed and without concerns, pill count without concerns. No obvious signs of diversion, abuse or misuse of the opioid medication. Refill of Oxycodone 5mg tabs #45 no refills, take one tablet twice daily as needed for pain sent to pharmacy today. Discussed Qutenza with patient for treatment of diabetic neuropathy. Pamphlet provided, patient will review and let us know if she would like to proceed. XR left hip ordered to evaluate. Patient will follow up after to discuss potential Fluoroscopy guided intraarticular left hip injection with local anesthetic. Patient to follow-up in the office in 1 month, sooner if needed. All questions and concerns have been answered and patient agrees with the plan. Orders: Orders 2 XR hip LT min 2V Today M16.12 - Unilateral primary osteoarthritis, left hip Coding Level of Care Code Est Pt Level 4 (14827) Diagnoses Neuropathy G62.9 Osteoarthritis of left hip M16.12 Arthritis of left knee M17.12
[2023-06-29 13:01] VITALS: BP 126/64; PULSE 78; RESP 14; O2SAT 96; BMI 39.2
== END 2023-06-29 13:11 | disposition home or self-care (01) ==
PROVIDERS: PCP Nurse Practitioner Family; Visit Provider Registered Nurse Emergency
DX: M16.12 Unilateral primary osteoarthritis, left hip (principal); M17.12 Unilateral primary osteoarthritis, left knee; G62.9 Polyneuropathy, unspecified
CPT/HCPCS: 99214

== ENCOUNTER → 2023-06-29 12:54 | Outpatient (BNVA) | payer OTHER, SELFPAY | PROVIDERS: PCP Nurse Practitioner Family; Visit Provider Registered Nurse Emergency | DX: Z51.81 Encounter for therapeutic drug level monitoring (principal); F11.20 Opioid dependence, uncomplicated; M16.12 Unilateral primary osteoarthritis, left hip; M17.12 Unilateral primary osteoarthritis, left knee; G62.9 Polyneuropathy, unspecified | CPT/HCPCS: 99212 ==

== ENCOUNTER 2023-07-18 11:29 | Outpatient (AMB) | payer OTHER, SELFPAY ==
--- NOTE | 2023-07-18 11:41 | A.OFFVIS_ITS ---
Intake Vital Signs 07/18/23 11:44 BP 142/74 H Blood Pressure Location Rt brachial Position Sitting Pulse 76 Pulse Source Pulse Oximeter Pulse Oximetry (%) 98 Oxygen Delivery Method Room Air Intake Visit Reasons: 4m follow up WENDY - Confirmed Intake Note: Patient presents for 4 month follow up WENDY.Patient states I didn't do my sleep study because my mom came from [place] I rescheduled for next month Allergies ibuprofen [IBUPROFEN] Allergy (Mild, Verified 07/27/23 13:12) RASH, hives, hives HPI HPI Comments History of Present Illness Details 58 y/o female patient with hx of asthma and Afib presents with her daughter for follow up of sleep study. The home sleep study result was inconclusive. AHI was less than 1/hr and oxygen marge was 66%. PSG sleep study is scheduled. She reports shortness of breath with any activity, including washing dishes she gets sob. Pt hasn't seen her manager family since 2020. Pt's sleep schedule is 2-3 am to 9 :30 am. Pt continues to endorse non refreshing sleep with daytime sleepiness. [facility] Medical History Adenomatous polyp of colon Afib Anxiety Asthma Auditory hallucinations Barretts esophagus Benign neoplasm breast skin Bursitis, shoulder Calcaneal spur Cervical pain (neck) Depression Disc degeneration, lumbar Dyspepsia Esophagitis GERD (gastroesophageal reflux disease) HTN (hypertension) Hx of flexible sigmoidoscopy Hyperlipidemia Hypertensive urgency Impaired glucose tolerance Morbid obesity WENDY (obstructive sleep apnea) Osteoarthritis of left hip PAF (paroxysmal atrial fibrillation) Palpitations Sacroiliac joint dysfunction of right side Sacroiliitis Spondylosis without myelopathy or radiculopathy, lumbar region Swelling of both lower extremities Xanthelasma Surgical History H/O esophagogastroduodenoscopy (09/01/15) History of hysterectomy History of removal of cyst Hx of cholecystectomy Hx of colonoscopy Status post Margarita fundoplication (10/27/12) Family History Father CVD (cardiovascular disease) HTN (hypertension) Diabetes Mother HTN (hypertension) Diabetes CVD (cardiovascular disease) Brother Pacemaker Maternal Grandmother Throat cancer Brother No problems noted. Daughter Hx LEEP (loop electrosurgical excision procedure), cervix, Other Mental health disorder Substance use disorder Social History Household Members: None Housing: House Are you a primary neonatal intensive care nurse to a significant other at home: No Alcohol intake: unknown Patient Tobacco Use Status: Never used Tobacco e-Cigarette/Vaping Use: Never Used Second Hand Smoke Exposure: No Advance Directives Date on File: 03/16/21 Current occupational status: disabled Sexual orientation: Straight/Heterosexual Gender identity: Female Cognitive needs: No Hearing needs: No Vision needs: No Review of Systems Const All systems reviewed & are unremarkable except as noted in HPI and below ENT Reports Normal hearing present Neuro Reports Normal hearing present Physical Exam Vital Signs: Last Vital Signs Pulse 76 07/18/23 11:44 BP 142/74 H 07/18/23 11:44 Pulse Ox 98 07/18/23 11:44 Oxygen Delivery Method Room Air 07/18/23 11:44 Const General: no acute distress Nutritional Appearance: obese Orientation/consciousness: patient oriented x3 Limitations: ambulation with cane Resp Effort & Inspection: normal respiratory effort and able to speak in complete sentences Back/Spine/Pelvis Other: Antalgic gait on the right. Patient ambulates with cane. Neuro General: patient oriented x3 Cranial nerves: Yes Bilaterally intact EOM present, Yes Normal facial strength present, Yes Symmetric palate elevation present, Yes Normal hearing present, Yes Ability to bilaterally rotate head present and Yes Ability to bilaterally elevate shoulders present Cognition (Neuro): normal cognition Motor exam (neuro): 5/5 motor strength present throughout, Pronator motor function not present and no tremor noted Extrem Left lower extremity: hip/thigh Details: tenderness and abnormal ROM Details: pain with active ROM Details: with ADduction, with ABduction, with internal rotation and with external rotation Psych Appearance: well kempt Mental Status: mental status grossly normal Affect: normal affect Attitude: cooperative Thought process: Normal thought process present Thought content: Normal thought content present Insight: Good insight present (Psych) Judgement: Good judgement present (Psych) Assessment & Plan Assessment & Plan (1) WENDY (obstructive sleep apnea): Code(s): G47.33 - Obstructive sleep apnea (adult) (pediatric) Plan Pt is advised to undergo PSG sleep study to assess for sleep apnea. Will f/u with pt after study to discuss results and appropriate treatment options. Sleep hygiene education provided. Pt to call with any worsening concerns or questions. Refer patient to manager family to treat asthma. Orders: Referrals Pulmonology Referral R06.02 - Shortness of breath, G47.36 - Sleep related hypoventilation in conditions classified elsewhere Coding Level of Care Code Est Pt Level 3 (46419) Diagnoses WENDY (obstructive sleep apnea) G47.33
[2023-07-18 11:44] VITALS: BP 142/74; PULSE 76; O2SAT 98
== END 2023-07-18 11:55 | disposition home or self-care (01) ==
PROVIDERS: Visit Provider Nurse Practitioner Family
DX: G47.33 Obstructive sleep apnea (adult) (pediatric) (principal)
CPT/HCPCS: 99213

== ENCOUNTER → 2023-07-18 11:29 | Outpatient (BNVA) | payer OTHER, SELFPAY | PROVIDERS: Visit Provider Nurse Practitioner Family | DX: G47.33 Obstructive sleep apnea (adult) (pediatric) (principal) | CPT/HCPCS: 99212 ==

== ENCOUNTER 2023-07-18 12:59 | Outpatient (AMB) | payer OTHER, SELFPAY ==
--- NOTE | 2023-07-18 13:58 | MHC.OFFWIV ---
Intake Vital Signs 07/18/23 13:59 Weight 220 lb BP 124/74 Blood Pressure Location Rt brachial Position Sitting Pulse 80 Pulse Source Pulse Oximeter Temp 97.2 F Temp Source Temporal Artery Scan Pulse Oximetry (%) 97 Intake Visit Reasons: EP, Rash under breast Intake Note: Patient here for rash under breast that has been present for about 1 week. pt states it is very itchy and sting. Patient Tobacco Use Status: Never used Tobacco Allergies ibuprofen [IBUPROFEN] Allergy (Mild, Verified 07/18/23 14:00) RASH, hives, hives Do you need a note to return to daycare/school/sports/work: No HPI EP, Rash under breast HPI Details 58-year-old female presents to the office for a sick visit. She is reporting a rash under both her breasts. Symptoms present for the past week. Predominant symptoms of itching. [facility] Medical History Adenomatous polyp of colon Afib Anxiety Asthma Auditory hallucinations Barretts esophagus Benign neoplasm breast skin Bursitis, shoulder Calcaneal spur Cervical pain (neck) Depression Disc degeneration, lumbar Dyspepsia Esophagitis GERD (gastroesophageal reflux disease) HTN (hypertension) Hx of flexible sigmoidoscopy Hyperlipidemia Hypertensive urgency Impaired glucose tolerance Morbid obesity WENDY (obstructive sleep apnea) Osteoarthritis of left hip PAF (paroxysmal atrial fibrillation) Palpitations Sacroiliac joint dysfunction of right side Sacroiliitis Spondylosis without myelopathy or radiculopathy, lumbar region Swelling of both lower extremities Xanthelasma Surgical History H/O esophagogastroduodenoscopy (09/01/15) History of hysterectomy History of removal of cyst Hx of cholecystectomy Hx of colonoscopy Status post Margarita fundoplication (10/27/12) Family History Father CVD (cardiovascular disease) HTN (hypertension) Diabetes Mother HTN (hypertension) Diabetes CVD (cardiovascular disease) Brother Pacemaker Maternal Grandmother Throat cancer Brother No problems noted. Daughter Hx LEEP (loop electrosurgical excision procedure), cervix, Other Mental health disorder Substance use disorder Social History Household Members: None Housing: House Are you a primary workforce investment act career manager to a significant other at home: No Alcohol intake: unknown Patient Tobacco Use Status: Never used Tobacco e-Cigarette/Vaping Use: Never Used Second Hand Smoke Exposure: No Advance Directives Date on File: 03/16/21 Current occupational status: disabled Sexual orientation: Straight/Heterosexual Gender identity: Female Cognitive needs: No Hearing needs: No Vision needs: No Physical Exam Vital Signs: Last Vital Signs Temp 97.2 F 07/18/23 13:59 Pulse 80 07/18/23 13:59 BP 124/74 07/18/23 13:59 Pulse Ox 97 07/18/23 13:59 Skin Other: Breast: Bilateral: Erythematous rash under pendulous breast. No weeping lesions seen. Assessment & Plan Assessment & Plan (1) Tinea corporis: Code(s): B35.4 - Tinea corporis Plan: Ketoconazole ointment to be applied bilaterally. Coding Level of Care Code Est Pt Level 3 (40548) Diagnoses Tinea corporis B35.4
[2023-07-18 13:59] VITALS: BP 124/74; PULSE 80; TEMP 36.2; O2SAT 97
== END 2023-07-18 14:54 | disposition home or self-care (01) ==
PROVIDERS: PCP Nurse Practitioner Family; Visit Provider Internal Medicine
DX: B35.4 Tinea corporis (principal)
CPT/HCPCS: 99213

== ENCOUNTER 2023-07-26 11:25 | Outpatient (REF) | payer OTHER, SELFPAY ==
--- NOTE | ~2023-07-26 | XR_ITS ---
EXAMINATION: XR HIP, LEFT CLINICAL INFORMATION: Primary osteoarthritis. COMPARISON: None available. TECHNIQUE: AP and frog-leg lateral views of the left hip. FINDINGS: No fracture. Alignment is anatomic. Hip joint space is maintained. Soft tissues are unremarkable. A left tubal ligation clip is noted. XR/XR hip LT min 2V IMPRESSION: Normal left hip.
== END 2023-07-26 11:26 | disposition home or self-care (01) ==
LOC: HO.XRAY 11:25
PROVIDERS: PCP Nurse Practitioner Family; Visit Provider Registered Nurse Emergency
DX: M16.12 Unilateral primary osteoarthritis, left hip (principal)
CPT/HCPCS: 73502

== ENCOUNTER 2023-07-27 12:52 | Outpatient (AMB) | payer OTHER, SELFPAY ==
--- NOTE | 2023-07-27 13:12 | A.OFFVIS_ITS ---
Intake Vital Signs 07/27/23 13:13 Height 5 ft 2 in Weight 216 lb BMI 39.5 BP 104/58 L Blood Pressure Location Lt brachial Position Sitting Respiration 16 Pulse 72 Pulse Source Pulse Oximeter Pulse Oximetry (%) 97 Oxygen Delivery Method Room Air Intake Visit Reasons: Pill count Allergies ibuprofen [IBUPROFEN] Allergy (Mild, Verified 07/27/23 13:12) RASH, hives, hives HPI HPI Comments History of Present Illness Details Nydia is a pleasant 58 year old female who presents to the office today for follow up chronic pain and chronic opioid therapy management. Patient is prescribed oxycodone 5mg tabs, take one tablet by mouth twice daily as needed for pain. Patient arrived today with the expectation of having 27 pills, she presented 40 pills. This demonstrates responsible attitude toward patient's opioid medications. Pain is reported today as 6/10 and last dose of pain medication was taken yesterday.. Pain is adequately managed on current opioid regimen. Patient denies any recent changes or exacerbations of her chronic back pain and states she is able to engage in activities of daily living with minimal interruption due to chronic pain. Patient denies side effects including somnolence, constipation, itching, dyspnea, rash, dizziness or weakness. Patient continues to complain of left hip pain. She completed xray yesterday. Image reviewed and discussed with patient today. ? ? PFSH Medical History Adenomatous polyp of colon Afib Anxiety Asthma Auditory hallucinations Barretts esophagus Benign neoplasm breast skin Bursitis, shoulder Calcaneal spur Cervical pain (neck) Depression Disc degeneration, lumbar Dyspepsia Esophagitis GERD (gastroesophageal reflux disease) HTN (hypertension) Hx of flexible sigmoidoscopy Hyperlipidemia Hypertensive urgency Impaired glucose tolerance Morbid obesity WENDY (obstructive sleep apnea) Osteoarthritis of left hip PAF (paroxysmal atrial fibrillation) Palpitations Sacroiliac joint dysfunction of right side Sacroiliitis Spondylosis without myelopathy or radiculopathy, lumbar region Swelling of both lower extremities Xanthelasma Surgical History H/O esophagogastroduodenoscopy (09/01/15) History of hysterectomy History of removal of cyst Hx of cholecystectomy Hx of colonoscopy Status post Margarita fundoplication (10/27/12) Family History Father CVD (cardiovascular disease) HTN (hypertension) Diabetes Mother HTN (hypertension) Diabetes CVD (cardiovascular disease) Brother Pacemaker Maternal Grandmother Throat cancer Brother No problems noted. Daughter Hx LEEP (loop electrosurgical excision procedure), cervix, Other Mental health disorder Substance use disorder Social History Household Members: None Housing: House Are you a primary care information associate to a significant other at home: No Alcohol intake: unknown Patient Tobacco Use Status: Never used Tobacco e-Cigarette/Vaping Use: Never Used Second Hand Smoke Exposure: No Advance Directives Date on File: 03/16/21 Current occupational status: disabled Sexual orientation: Straight/Heterosexual Gender identity: Female Cognitive needs: No Hearing needs: No Vision needs: No Review of Systems Const All systems reviewed & are unremarkable except as noted in HPI and below Physical Exam Vital Signs: Last Vital Signs Pulse 72 07/27/23 13:13 Resp 16 07/27/23 13:13 BP 104/58 L 07/27/23 13:13 Pulse Ox 97 07/27/23 13:13 Oxygen Delivery Method Room Air 07/27/23 13:13 BMI result Body Mass Index 39.5 Const General: no acute distress Orientation/consciousness: patient oriented x3 Resp Effort & Inspection: normal respiratory effort and able to speak in complete sentences Back/Spine/Pelvis Other: Antalgic gait on the right. Patient ambulates with cane. Neuro General: patient oriented x3 Extrem Left lower extremity: hip/thigh Details: tenderness and abnormal ROM Details: pain with active ROM Details: with ADduction, with ABduction, with internal rotation and with external rotation Psych Appearance: well kempt Affect: normal affect Attitude: cooperative Thought process: Normal thought process present Thought content: Normal thought content present Insight: Good insight present (Psych) Judgement: Good judgement present (Psych) Results Reviewed Results Reviewed: 07/26/2023 Xray left hip images reviewed. No radiologist reading as of todays appointment. Assessment & Plan Assessment & Plan (1) Neuropathy: Comment: bilateral feet Code(s): G62.9 - Polyneuropathy, unspecified (2) Osteoarthritis of left hip: Code(s): M16.12 - Unilateral primary osteoarthritis, left hip (3) Arthritis of left knee: Code(s): M17.12 - Unilateral primary osteoarthritis, left knee Plan Masspat was reviewed and without concerns, pill count without concerns. No obvious signs of diversion, abuse or misuse of the opioid medication. Refill of Oxycodone 5mg tabs #45 no refills, take one tablet twice daily as needed for pain sent to pharmacy today with do not fill until 08/15/2023. Patient with continued pain to left him, worse with internal and external rotation and known osteoarthritis of left hip. Discussed options for treatment, patient would like to proceed with therapeutic injection. Will schedule for Fluoroscopy guided intraarticular left hip injection with local anesthetic. Patient to follow-up in the office in 1 month, sooner if needed. All questions and concerns have been answered and patient agrees with the plan. Medications: Refilled oxycodone 5 mg PO BID PRN 45 tabs 0RF pain 30 days M46.1 - Sacroiliitis, not elsewhere classified, M54.30 - Sciatica, unspecified side Coding Level of Care Code Est Pt Level 4 (17587) Diagnoses Neuropathy G62.9 Osteoarthritis of left hip M16.12 Arthritis of left knee M17.12
[2023-07-27 13:13] VITALS: BP 104/58; PULSE 72; RESP 16; O2SAT 97; BMI 39.5
== END 2023-07-27 13:18 | disposition home or self-care (01) ==
PROVIDERS: PCP Nurse Practitioner Family; Visit Provider Registered Nurse Emergency
DX: G62.9 Polyneuropathy, unspecified (principal); M16.12 Unilateral primary osteoarthritis, left hip; M17.12 Unilateral primary osteoarthritis, left knee
CPT/HCPCS: 99214

== ENCOUNTER → 2023-07-27 20:30 | Outpatient (REF) | payer OTHER, SELFPAY | LOC: HO.SL 20:30 | PROVIDERS: PCP Nurse Practitioner Family; Visit Provider Nurse Practitioner Family | DX: G47.33 Obstructive sleep apnea (adult) (pediatric) (principal); M16.12 Unilateral primary osteoarthritis, left hip; M17.12 Unilateral primary osteoarthritis, left knee | CPT/HCPCS: 95810; 99212 ==

== ENCOUNTER → 2023-07-27 21:30 | Outpatient (BNV) | payer OTHER, SELFPAY | PROVIDERS: PCP Nurse Practitioner Family; Visit Provider Psychiatry & Neurology Neurology | DX: G47.33 Obstructive sleep apnea (adult) (pediatric) (principal) | CPT/HCPCS: 95810 ==

== ENCOUNTER 2023-08-17 13:37 | Outpatient (AMB) | payer OTHER, SELFPAY ==
[2023-08-17 13:40] VITALS: BP 124/87; PULSE 80; O2SAT 98; BMI 39.9
--- NOTE | 2023-08-17 13:40 | AM.OFFVISNUR ---
Intake Vital Signs 08/17/23 13:40 Height 5 ft 2 in Weight 218 lb 4.122 oz BMI 39.9 Intake Visit Reasons: Sleep apnea Allergies ibuprofen [IBUPROFEN] Allergy (Mild, Verified 07/27/23 13:12) RASH, hives, hives Coding
--- NOTE | 2023-08-17 13:43 | MHC.OFFVIS ---
Intake Vital Signs 08/17/23 13:40 08/17/23 13:45 Height 5 ft 2 in Weight 218 lb 4.122 oz BMI 39.9 39.9 BP 124/87 Blood Pressure Location Lt brachial Position Sitting Pulse 80 Pulse Source Doppler Pulse Oximetry (%) 98 Oxygen Delivery Method Room Air Intake Visit Reasons: Sleep apnea Allergies ibuprofen [IBUPROFEN] Allergy (Mild, Verified 08/17/23 13:44) RASH, hives, hives HPI Sleep apnea HPI Details 58-year-old lady, with underlying history of asthma and mild obstructive sleep apnea in the process of receiving her CPAP machine, previously followed by Dr. Scott, here with repeat referal for nocturnal hypoxemia on the background of obstructive sleep apnea. Patient is scheduled to undergo titration study. She currently does not have her CPAP machine. She has no evidence of a chronic CO2 retention. Her asthma is well controlled on Flovent and albuterol MDI/nebs. [facility] Medical History (Updated 08/17/23 @ 14:03 by Laith Rubio MD) Barretts esophagus Hx of flexible sigmoidoscopy Osteoarthritis of left hip Spondylosis without myelopathy or radiculopathy, 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 Sacroiliitis Asthma WENDY (obstructive sleep apnea) Morbid obesity Swelling of both lower extremities Afib Disc degeneration, lumbar Cervical pain (neck) Calcaneal spur Benign neoplasm breast skin Bursitis, shoulder Xanthelasma Auditory hallucinations Impaired glucose tolerance Hyperlipidemia Anxiety Depression Adenomatous polyp of colon Esophagitis Hypertensive urgency PAF (paroxysmal atrial fibrillation) Palpitations HTN (hypertension) Dyspepsia GERD (gastroesophageal reflux disease) Surgical History Hx of colonoscopy H/O esophagogastroduodenoscopy (09/01/15) Status post Margarita fundoplication (10/27/12) History of removal of cyst Hx of cholecystectomy History of hysterectomy Family History Father CVD (cardiovascular disease) HTN (hypertension) Diabetes Mother HTN (hypertension) Diabetes CVD (cardiovascular disease) Brother Pacemaker Maternal Grandmother Throat cancer Brother No problems noted. Daughter Hx LEEP (loop electrosurgical excision procedure), cervix, Other Mental health disorder Substance use disorder Social History Household Members: None Housing: House Are you a primary nurse behavioral health care to a significant other at home: No Alcohol intake: unknown Patient Tobacco Use Status: Never used Tobacco e-Cigarette/Vaping Use: Never Used Second Hand Smoke Exposure: No Advance Directives Date on File: 03/16/21 Current occupational status: disabled Sexual orientation: Straight/Heterosexual Gender identity: Female Cognitive needs: No Hearing needs: No Vision needs: No Review of Systems Const Reports daytime sleepiness, Denies excessive sweating, Denies fatigue, Denies fever(s), Denies lethargy, Denies malaise, Denies night sweats, Reports snoring and Denies weight loss Eyes Denies blurry vision and Denies itchy eyes ENT Denies nasal congestion, Denies post nasal drip, Denies sinus pain, Denies sinus pressure and Denies other ( Thrush) Card Denies chest pain, Denies pedal edema, Denies dyspnea, Denies orthopnea and Denies paroxysmal nocturnal dyspnea Resp Denies cough, Denies hemoptysis, Denies excessive phlegm production, Denies dyspnea, Reports snoring and Denies wheezing GI Denies abdominal pain and Denies heartburn Musc Denies myalgias, Denies arthralgias and Denies joint swelling Skin/Breast Denies rash Neuro Denies memory loss and Denies seizure-like activity Psych Denies abnormal sleep pattern, Denies anxiety and Denies memory loss Endo Denies excessive sweating, Denies fatigue and Denies heat intolerance Earle/Lymph Denies easy bruising Aller/Immun Denies itchy eyes, Denies seasonal rhinorrhea and Denies wheezing Physical Exam Vital Signs: Last Vital Signs Pulse 80 08/17/23 13:40 BP 124/87 08/17/23 13:40 Pulse Ox 98 08/17/23 13:40 Oxygen Delivery Method Room Air 08/17/23 13:40 BMI result Body Mass Index 39.9 Const General: no acute distress and alert Nutritional Appearance: not obese Orientation/consciousness: Other orientation findings ( oriented) HEENT Head: Yes atraumatic Eyes General: appearance normal, both eyes and all related structures Sclerae: sclerae normal EOM: EOMs intact bilaterally Neck Neck: Yes supple Lymphatic: no lymphadenopathy noted Resp Effort & Inspection: normal respiratory effort and no use of accessory muscles Auscultation: clear to auscultation bilaterally Cardio Rate: regular rate Rhythm: regular rhythm Heart sounds: no gallops, no murmurs and no rubs Skin General skin exam: other ( warm) Extrem General: No clubbing, No cyanosis and No edema Assessment & Plan Assessment & Plan (1) WENDY (obstructive sleep apnea): Code(s): G47.33 - Obstructive sleep apnea (adult) (pediatric) Plan: Underlying mild obstructive sleep apnea, patient is scheduled to undergo titration study. Nocturnal hypoxemia likely related to obstructive sleep apnea. Patient needs to have overnight oximetry on CPAP, when she gets it. Study ordered. (2) Asthma: Code(s): J45.909 - Unspecified asthma, uncomplicated Qualifiers: Asthma complication type: with acute exacerbation Asthma persistence: unspecified Asthma severity: unspecified severity Qualified Code(s): J45.901 - Unspecified asthma with (acute) exacerbation Plan: Well controlled on current regimen of Flovent and albuterol MDI. Continue current regimen. Orders: Orders Overnight Pulse Oximetry 09/14/23 G47.33 - Obstructive sleep apnea (adult) (pediatric) Coding Level of Care Code Est Pt Level 4 (53559) Diagnoses WENDY (obstructive sleep apnea) G47.33 Asthma J45.901 Asthma complication type: with acute exacerbation Asthma persistence: unspecified Asthma severity: unspecified severity
[2023-08-17 13:45] VITALS: BMI 39.9
== END 2023-08-17 13:59 | disposition home or self-care (01) ==
PROVIDERS: PCP Nurse Practitioner Family; Visit Provider Internal Medicine Pulmonary Disease
DX: G47.33 Obstructive sleep apnea (adult) (pediatric) (principal); J45.901 Unspecified asthma with (acute) exacerbation
CPT/HCPCS: 99214

== ENCOUNTER → 2023-08-17 13:37 | Outpatient (BNVA) | payer OTHER, SELFPAY | PROVIDERS: PCP Nurse Practitioner Family; Visit Provider Internal Medicine Pulmonary Disease | DX: G47.33 Obstructive sleep apnea (adult) (pediatric) (principal); J45.901 Unspecified asthma with (acute) exacerbation | CPT/HCPCS: 99212 ==

== ENCOUNTER 2023-08-18 04:51 | Emergency (ER) | payer OTHER, SELFPAY ==
--- NOTE | ~2023-08-18 | XR_ITS ---
EXAMINATION: XR CHEST CLINICAL INFORMATION: Shortness of breath COMPARISON: 01/01/2023 TECHNIQUE: Frontal view of the chest was obtained. FINDINGS: The lungs are clear with no focal consolidation. No evidence of pneumothorax, pulmonary edema, or pleural effusions. The cardiomediastinal silhouette is unremarkable. No acute osseous findings. Right axillary clips are noted. XR/XR chest 1V IMPRESSION: No acute cardiopulmonary findings.
[2023-08-18 05:33] VITALS: BP 152/81; PULSE 75; RESP 16; TEMP 36.9; O2SAT 98; BMI 41.6
--- NOTE | 2023-08-18 06:57 | ED.GENADULT ---
HPI - General Adult General Chief complaint: General Medical Stated complaint: sinus pain, possible flu? Time Seen by Provider: 08/18/23 06:29 Source: patient Mode of arrival: ambulatory Limitations: no limitations History of Present Illness HPI narrative: Patient is a 58-year-old female presenting to the emergency department with complaint of sore throat, right ear pain and headaches. States symptoms began prior to testing positive for COVID 3 weeks ago but have progressively worsened. She denies fevers. Denies any blurred vision, double vision or other visual changes. Denies any dizziness or lightheadedness. Denies any chest pain or shortness of breath. Reports occasional nonproductive cough. State pain increases with swallowing and eating. Has used nctb-mrd-upctenu medications with little relief. MD complaint: Sore throat, ear pain, headaches Onset (ago): week(s) Severity: severe Quality: burning Pain Consistency: constant Relieving factors: none Exacerbating factors: eating Associated symptoms: cough Treatments prior to arrival: other (Tylenol, OTC cold medicine) Related Data Home Medications Medication Instructions Recorded Confirmed aripiprazole 5 mg tablet 5 mg PO DAILY 08/23/20 04/14/23 buspirone 15 mg tablet 15 mg PO BID 08/23/20 04/14/23 spironolactone 25 mg tablet 25 mg PO BID 08/23/20 04/14/23 sertraline 100 mg tablet 100 mg PO DAILY 05/26/21 04/14/23 naloxone 4 mg/actuation nasal 4 mg intranasal Q2M PRN as directed 04/28/22 04/14/23 spray (Narcan) zolpidem 5 mg tablet 5 mg PO BEDTIME PRN Sleep 06/10/22 04/14/23 melatonin 3 mg tablet 3 mg PO QPM 07/18/23 Previous Rx's Medication Instructions Recorded blood pressure kit-extra large #1 ea 01/12/21 atorvastatin 20 mg tablet 20 mg PO DAILY 90 days #90 tabs 01/15/21 docusate sodium 100 mg capsule 100 mg PO BEDTIME #30 caps 05/08/21 albuterol sulfate 2.5 mg/0.5 mL 5 mg inhalation Q4H PRN shortness 09/23/21 solution for nebulization of breath or wheezing #30 ea albuterol sulfate 90 mcg/actuation 2 puff inhalation Q4-6H PRN 09/23/21 aerosol inhaler shortness of breath or wheezing #6.7 grams diclofenac sodium 1 % topical gel 4 g topical QID 30 days #100 grams 12/09/21 (Arthritis Pain (diclofenac)) clonidine HCl 0.1 mg tablet 0.1 mg PO BID 30 days #60 tabs 04/12/22 incontinence pad, liner, disp #39 ea 04/12/22 hydrochlorothiazide 25 mg tablet 25 mg PO DAILY 30 days #30 tabs 04/29/22 fluticasone propionate 110 1 puff inhalation BID 30 days #12 06/02/22 mcg/actuation HFA aerosol inhaler grams tizanidine 4 mg tablet 4 mg PO TID PRN for pain #270 tabs 08/27/22 rivaroxaban 20 mg tablet (Xarelto) 20 mg PO DAILY #90 tabs 01/17/23 blood-glucose meter (OneTouch #1 ea 02/11/23 Ultra2 Meter) lancets 33 gauge (OneTouch Delica #100 ea 03/01/23 Lancets) cholecalciferol (vitamin D3) 50 50 mcg PO DAILY #90 caps 03/03/23 mcg (2,000 unit) capsule omeprazole 20 mg capsule,delayed 20 mg PO BID #180 caps 03/03/23 release carvedilol 25 mg tablet 25 mg PO BID 90 days #180 tabs 04/14/23 hydroxyzine HCl 10 mg tablet 10 mg PO TID PRN for itch #90 tabs 06/15/23 amlodipine 10 mg tablet 10 mg PO DAILY 90 days #90 tabs 07/17/23 blood sugar diagnostic (OneTouch #100 ea 07/17/23 Ultra Test strips) lisinopril 40 mg tablet 40 mg PO DAILY 90 days #90 tabs 07/17/23 ketoconazole 2 % topical cream 1 appl topical DAILY #30 grams 07/18/23 oxycodone 5 mg tablet 5 mg PO BID PRN pain 30 days #45 07/27/23 tabs amoxicillin 875 mg tablet 875 mg PO Q12H 7 days #14 tabs 08/18/23 Allergies Allergy/AdvReac Type Severity Reaction Status Date / Time ibuprofen [IBUPROFEN] Allergy Mild RASH, Verified 08/17/23 13:44 hives, hives Review of Systems Review of Systems: As per HPI. 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 Sacroiliitis Asthma WENDY (obstructive sleep apnea) Morbid obesity Swelling of both lower extremities Afib Disc degeneration, lumbar Cervical pain (neck) Calcaneal spur Benign neoplasm breast skin Bursitis, shoulder Xanthelasma Auditory hallucinations Impaired glucose tolerance Hyperlipidemia Anxiety Depression Adenomatous polyp of colon Esophagitis Hypertensive urgency PAF (paroxysmal atrial fibrillation) Palpitations HTN (hypertension) Dyspepsia GERD (gastroesophageal reflux disease) Surgical History Hx of colonoscopy H/O esophagogastroduodenoscopy (09/01/15) Status post Margarita fundoplication (10/27/12) History of removal of cyst Hx of cholecystectomy History of hysterectomy Family History Family History Father CVD (cardiovascular disease) HTN (hypertension) Diabetes Mother HTN (hypertension) Diabetes CVD (cardiovascular disease) Brother Pacemaker Maternal Grandmother Throat cancer Brother No problems noted. Daughter Hx LEEP (loop electrosurgical excision procedure), cervix, Other Mental health disorder Substance use disorder Social History Social History Household Members: None Housing: House Are you a primary campground caretaker to a significant other at home: No Alcohol intake: never Patient Tobacco Use Status: Never used Tobacco Smoked in Last 30 Days: No e-Cigarette/Vaping Use: Never Used Second Hand Smoke Exposure: No Use of substances other than those prescribed or required for medical reasons: No Advance Directives: Yes Advance Directives on File: Yes Advance Directives Date on File: 03/16/21 Current occupational status: disabled Sexual orientation: Straight/Heterosexual Gender identity: Female Cognitive needs: No Hearing needs: No Vision needs: No Physical Exam ED Vital Signs: Vital Signs - 24 hr 08/18/23 05:33 08/18/23 07:12 Temperature 98.4 F 98.3 F Pulse Rate 75 77 Respiratory Rate 16 18 Blood Pressure 152/81 H 171/65 H Pulse Oximetry 98 98 Oxygen Delivery Method Room Air Room Air BMI result Body Mass Index 41.6 Vital signs have been reviewed and appear to be correct. Blood pressure elevated. Heart rate normal. Respiratory rate normal. Temperature normal. Oxygen saturation normal. Const General: cooperative, healthy appearing and no acute distress Orientation/consciousness: oriented to person, oriented to place, oriented to time and patient oriented x3 Limitations: no limitations HENMT Head: Yes normocephalic and Yes atraumatic Ears: hearing grossly normal bilaterally, external ears normal, EAC's normal, mastoids normal bilaterally and TM abnormal bulging on the right, wth effusion purulent on the right, erythematous bilateral and with fluid behind the TM bilateral; not perforated General nose exam: Normal external nose present, Normal nares present and Normal nasal mucous membranes and turbinates present Face and sinus: Yes sinuses nontender and Yes face symmetric Mouth: Normal oral and palatal mucosa present, lip normal, tongue normal, oropharynx normal and moist mucous membranes Throat: Yes uvula midline, Yes posterior oropharynx abnormal (erythematous, no edema or exudate) and No uvular edema Eyes Pupils: Equal, round and reactive pupils present Neck Neck: Yes normal visual inspection and Yes supple Resp Effort & Inspection: normal respiratory effort and able to speak in complete sentences Auscultation: clear to auscultation bilaterally Cardio Rate: regular rate Rhythm: regular rhythm Heart sounds: S1 normal heart sound present and S2 normal heart sound present GI Palpation (GI): Soft to palpation and nontender Auscultation: normoactive bowel sounds General: Yes no CVA tenderness Back/Spine/Pelvis Back: no CVA tenderness Skin General skin exam: elasticity normal and turgor normal Neuro General: oriented to person, oriented to place, oriented to time, patient oriented x3, moves all extremities, no focal motor deficits and CN's II-XI intact bilaterally Cranial nerves: Yes Equal, round and reactive pupils present Cognition (Neuro): normal cognition Extrem General: Yes full ROM, Yes no pedal edema and Yes no calf tenderness Psych Mental Status: mental status grossly normal Affect: normal affect Thought process: Normal thought process present Medical Decision Making Medical Decision Making MDM Narrative: Patient is a 58-year-old female presenting to the emergency department with complaint of sore throat, right ear pain and headaches. On exam patient is awake, A+Ox3, BP elevated VS otherwise WNL, afebrile, normal neurological exam without focal deficits, physical exam findings as above. Given reported symptoms and physical exam findings, initial differential includes strep pharyngitis, influenza, otitis media, otitis externa, sinusitis, viral URI. X-ray notable for no acute cardiopulmonary abnormalities. My interpretation is in agreement with the radiologist's interpretation. Swabs for flu and strep both negative, patient updated on results. Will treat with amoxicillin for otitis media at this time. Advised patient to gargle with warm salt water several times daily, Tylenol for discomfort. Instructed patient to follow-up with primary care provider. Return precautions discussed at bedside. Patient verbalized understanding of and agreement with plan. Differential Diagnosis Differential Diagnoses: The differential diagnosis associated with the presentation includes As per [facility]. Lab Data [facility] Lab Attestation statement: I reviewed the patient's lab results. As per [facility]. Labs: Lab Results 08/18/23 08/18/23 Range/Units 07:05 07:18 Influenza Type A (KATI) Negative (Negative) Influenza Type B (KATI) Negative (Negative) Influenza A & B Note See Note S. pyogenes GrpA KATI Negative (Negative) Independent Interpretation I performed an independent interpretation of an: Plain X-Ray Interpretation: No acute abnormalities on chest x-ray Radiology Impression Discussion of test interpretation with radiology: I have reviewed the radiologist's reading. Radiologist Impression: XR/XR chest 1V IMPRESSION: No acute cardiopulmonary findings. External Record Review External record reviewed: Inpatient record, Office record and Outpatient record Prescription Management I considered prescription management with: Antibiotic Discharge Plan Discharge Clinical Impression: Acute otitis media Qualifiers: Otitis media type: suppurative Laterality: right Recurrence: non-recurrent Spontaneous tympanic membrane rupture: without spontaneous rupture Qualified Code(s): H66.001 - Acute suppurative otitis media without spontaneous rupture of ear drum, right ear Patient Disposition: Home, Self-Care Instructions: Ear Infection (ED) Additional Instructions: You were evaluated in the emergency department today for a sore throat, ear pain, and headache. Your flu and strep swabs were both negative. Your physical exam showed evidence of infection in both ears, right worse than left. You are being prescribed antibiotics for your ear infections, please complete the full course as prescribed. Your other symptoms are likely related to a viral infection which will resolve on its own with time and rest. Be sure to drink adequate fluids. You can use Tylenol and ibuprofen per package directions as needed for discomfort. You can also gargle with warm salt water several times daily. Follow-up with your primary care provider this week. Return to the emergency department if you develop difficulty swallowing, worsening pain, shortness of breath, are unable to swallow your saliva, or any other concerning symptoms. Prescriptions: New amoxicillin 875 mg tablet 875 mg PO Q12H 7 Days Qty: 14 0RF No Action atorvastatin 20 mg tablet 20 mg PO DAILY 90 Days Qty: 90 0RF (DME) incontinence pad, liner, disp Pad See Rx Instructions .Route Qty: 39 0RF Rx Instructions: use daily for incont hydrochlorothiazide 25 mg tablet 25 mg PO DAILY 30 Days Qty: 30 2RF fluticasone propionate 110 mcg/actuation HFA aerosol inhaler 1 puff inhalation BID 30 Days Qty: 12 1RF tizanidine 4 mg tablet 4 mg PO TID PRN (Reason: for pain) Qty: 270 8RF Xarelto 20 mg tablet 20 mg PO DAILY Qty: 90 2RF Hold Instructions: Resume on 04/08/23. resume tomorrow am (DME) blood-glucose meter [OneTouch Ultra2 Meter] [facility] [place] See Rx Instructions .Route Qty: 1 0RF Rx Instructions: Use to check blood sugar twice daily: fasting blood sugar and a random blood sugar (DME) lancets [OneTouch Delica Lancets] 33 gauge misc See Rx Instructions .Route Qty: 100 3RF Rx Instructions: Use to check blood sugar twice daily: fasting blood sugar and a random blood sugar omeprazole 20 mg capsule,delayed release(DR/EC) 20 mg PO BID Qty: 180 1RF cholecalciferol (vitamin D3) 50 mcg (2,000 unit) capsule 50 mcg PO DAILY Qty: 90 1RF hydroxyzine HCl 10 mg tablet 10 mg PO TID PRN (Reason: for itch) Qty: 90 8RF lisinopril 40 mg tablet 40 mg PO DAILY 90 Days Qty: 90 1RF (DME) OneTouch Ultra Test Strip See Rx Instructions .Route Qty: 100 2RF Rx Instructions: Use to check blood sugar twice daily: fasting blood sugar and a random blood sugar amlodipine 10 mg tablet 10 mg PO DAILY 90 Days Qty: 90 1RF oxycodone 5 mg tablet 5 mg PO BID PRN (Reason: pain) 30 Days Qty: 45 0RF docusate sodium 100 mg capsule 100 mg PO BEDTIME Qty: 30 0RF albuterol sulfate 90 mcg/actuation HFA aerosol inhaler 2 puff inhalation Q4-6H PRN (Reason: shortness of breath or wheezing) Qty: 6.7 0RF albuterol sulfate 2.5 mg/0.5 mL solution for nebulization 5 mg inhalation Q4H PRN (Reason: shortness of breath or wheezing) Qty: 30 0RF (DME) blood pressure kit-extra large Kit See Rx Instructions .ROUTE .MEDSUPPLY Qty: 1 0RF Rx Instructions: As directed clonidine HCl 0.1 mg tablet 0.1 mg PO BID 30 Days Qty: 60 1RF carvedilol 25 mg tablet 25 mg PO BID 90 Days Qty: 180 1RF ketoconazole 2 % cream 1 appl topical DAILY Qty: 30 0RF aripiprazole 5 mg tablet 5 mg PO DAILY buspirone 15 mg tablet 15 mg PO BID spironolactone 25 mg tablet 25 mg PO BID sertraline 100 mg tablet 100 mg PO DAILY zolpidem 5 mg tablet 5 mg PO BEDTIME PRN (Reason: Sleep) naloxone [Narcan] 4 mg/actuation spray,non-aerosol 4 mg intranasal Q2M PRN (Reason: as directed) Rx Instructions: spray 1 dose into ONE nostril; alternate nostrils w each dose until help arrives diclofenac sodium [Arthritis Pain (diclofenac)] 1 % gel 4 g topical QID 30 Days Qty: 100 11RF Rx Instructions: apply to single knee, ankle, foot; for foot includes sole/toes/top of foot melatonin 3 mg tablet 3 mg PO QPM Stand Alone Forms: Work/School Release
--- NOTE | 2023-08-18 07:07 | MHC.EDTECH ---
Flu swab collected and sent to lab
[2023-08-18 07:12] VITALS: BP 171/65; PULSE 77; RESP 18; TEMP 36.8; O2SAT 98
--- NOTE | 2023-08-18 07:13 | PC.NURSE ---
this rn assumed care. pt a&ox3. respirations even and unlabored. lung sounds clear bilaterally. abdomen soft non non tender to touch. pt reports having covid 3 weeks ago. pt reports the symptoms have worsened. pt reports sore throat, bilateral ear pains, chills and nausea. pt denies vomiting, chest pain and shortness of breath.
--- NOTE | 2023-08-18 07:19 | PC.NURSE ---
this RN obtained strep throat swab. pt throat red without any visible white patches. pt denies SOB.
[2023-08-18 07:26] LABS: IDNOW Serial# 6674DD1D; Influenza A Negative (Negative)
[2023-08-18 07:27] LABS: Influenza B2 Negative (Negative)
[2023-08-18 07:37] LABS: IDNOW Serial# 6674DD1D; Strep A Nucleic Acid Negative (Negative)
== END 2023-08-18 08:07 | disposition home or self-care (01) ==
PROVIDERS: Registered Nurse Emergency; Emergency Provider Emergency Medicine
DX: H66.001 Acute suppurative otitis media without spontaneous rupture of ear drum, right ear (principal); Z20.822 Contact with and (suspected) exposure to COVID-19; J02.9 Acute pharyngitis, unspecified
CPT/HCPCS: 71045; 87502; 87651; 99283; 99284

== ENCOUNTER 2023-08-24 12:57 | Outpatient (AMB) | payer OTHER, SELFPAY ==
--- NOTE | 2023-08-24 13:11 | A.OFFVIS_ITS ---
Intake Vital Signs 08/24/23 13:12 Height 5 ft 1 in Weight 214 lb BMI 40.4 BP 142/75 H Blood Pressure Location Rt brachial Position Sitting Respiration 16 Pulse 76 Pulse Source Pulse Oximeter Pulse Oximetry (%) 99 Oxygen Delivery Method Room Air Intake Visit Reasons: Pill count/ Confirmed. Allergies ibuprofen [IBUPROFEN] Allergy (Mild, Verified 08/24/23 13:13) RASH, hives, hives HPI HPI Comments History of Present Illness Details Nydia is a pleasant 58 year old female who presents to the office today for follow up chronic pain and chronic opioid therapy management. Patient is prescribed oxycodone 5mg tabs, take one tablet by mouth twice daily as needed for pain. Patient arrived today with the expectation of having 0 pills, she presented 1 pill. This demonstrates responsible attitude toward patient's opioid medications. Pain is reported today as 5/10 and last dose of pain medication was taken yesterday at 8pm. Pain is adequately managed on current opioid regimen. Patient denies any recent changes or exacerbations of her chronic back pain and states she is able to engage in activities of daily living with minimal interruption due to chronic pain. Patient denies side effects including somnolence, constipation, itching, dyspnea, rash, dizziness or weakness. Patient had been scheduled for intraarticular hip injection last month, she tested positive for Covid so it was cancelled. She reports she is still not feeling great and is not ready to reschedule the injection. ? ? 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 Sacroiliitis Asthma WENDY (obstructive sleep apnea) Morbid obesity Swelling of both lower extremities Afib Disc degeneration, lumbar Cervical pain (neck) Calcaneal spur Benign neoplasm breast skin Bursitis, shoulder Xanthelasma Auditory hallucinations Impaired glucose tolerance Hyperlipidemia Anxiety Depression Adenomatous polyp of colon Esophagitis Hypertensive urgency PAF (paroxysmal atrial fibrillation) Palpitations HTN (hypertension) Dyspepsia GERD (gastroesophageal reflux disease) Surgical History Hx of colonoscopy H/O esophagogastroduodenoscopy (09/01/15) Status post Margarita fundoplication (10/27/12) History of removal of cyst Hx of cholecystectomy History of hysterectomy Family History Father CVD (cardiovascular disease) HTN (hypertension) Diabetes Mother HTN (hypertension) Diabetes CVD (cardiovascular disease) Brother Pacemaker Maternal Grandmother Throat cancer Brother No problems noted. Daughter Hx LEEP (loop electrosurgical excision procedure), cervix, Other Mental health disorder Substance use disorder Social History Household Members: None Housing: House Are you a primary home care chaplain to a significant other at home: No Alcohol intake: never Patient Tobacco Use Status: Never used Tobacco e-Cigarette/Vaping Use: Never Used Second Hand Smoke Exposure: No Advance Directives Date on File: 03/16/21 Current occupational status: disabled Sexual orientation: Straight/Heterosexual Gender identity: Female Cognitive needs: No Hearing needs: No Vision needs: No Review of Systems Const All systems reviewed & are unremarkable except as noted in HPI and below Physical Exam General: awake, alert, oriented. Answers questions appropriately. Fully engaged in examination. Skin: warm, dry, intact HEENT: Normocephalic. Hearing intact. Cardiac: External chest normal in appearance. Respiratory: No cough, audible wheezing or stridor. Abdomen: without gross distension. MS: No obvious swelling or deformities. Neurological: Oriented to person, place, time and situation. Thought process intact. Psychiatric: Appropriate mood and affect. Good judgment and insight. Assessment & Plan Assessment & Plan (1) Neuropathy: Comment: bilateral feet Code(s): G62.9 - Polyneuropathy, unspecified (2) Osteoarthritis of left hip: Code(s): M16.12 - Unilateral primary osteoarthritis, left hip (3) Arthritis of left knee: Code(s): M17.12 - Unilateral primary osteoarthritis, left knee Plan Masspat was reviewed and without concerns, pill count without concerns. No obvious signs of diversion, abuse or misuse of the opioid medication. Refill of medication was sent at last visit, she has not picked up as of today. Confirmed with pharmacy last fill date was 07/18/2023. She will crop picker existing refill sent last visit. Patient with continued pain to left hip, scheduled procedure last month was lenora souza. She is not ready to reschedule today. She will call the office to reschedule Fluoroscopy guided intraarticular left hip injection with local anesthetic when she is fully recovered from Covid. Patient to follow-up in the office in 1 month, sooner if needed. All questions and concerns have been answered and patient agrees with the plan. Coding Level of Care Code Est Pt Level 3 (91860) Diagnoses Neuropathy G62.9 Osteoarthritis of left hip M16.12 Arthritis of left knee M17.12
[2023-08-24 13:12] VITALS: BP 142/75; PULSE 76; RESP 16; O2SAT 99; BMI 40.4
== END 2023-08-24 13:20 | disposition home or self-care (01) ==
PROVIDERS: PCP Nurse Practitioner Family; Visit Provider Registered Nurse Emergency
DX: G62.9 Polyneuropathy, unspecified (principal); M16.12 Unilateral primary osteoarthritis, left hip; M17.12 Unilateral primary osteoarthritis, left knee
CPT/HCPCS: 99213

== ENCOUNTER → 2023-08-24 12:57 | Outpatient (BNVA) | payer OTHER, SELFPAY | PROVIDERS: PCP Nurse Practitioner Family; Visit Provider Registered Nurse Emergency | DX: G62.9 Polyneuropathy, unspecified (principal); M16.12 Unilateral primary osteoarthritis, left hip; M17.12 Unilateral primary osteoarthritis, left knee; Z79.891 Long term (current) use of opiate analgesic | CPT/HCPCS: 99212 ==

== ENCOUNTER 2023-09-15 11:15 | Outpatient (AMB) | payer OTHER, SELFPAY ==
--- NOTE | 2023-09-15 11:21 | MHC.PC.OV ---
Vital Signs 09/15/23 11:23 Height 5 ft 1 in Weight 219 lb BMI 41.4 BP 130/80 Blood Pressure Location Lt brachial Position Sitting Pulse 88 Pulse Source Pulse Oximeter Pulse Oximetry (%) 99 Oxygen Delivery Method Room Air Intake Visit Reasons: 3 month fu r/s Allergies ibuprofen [IBUPROFEN] Allergy (Mild, Verified 09/15/23 11:23) RASH, hives, hives Tobacco use date assessed: 04/14/23 HPI 3 month fu r/s HPI Details Pt is a diabetic, on an JELANI and a statin. A1C in office today is 6.5. Microalbumin is up to date. Denies polyuria and polydipsia, does report neuropathy. Pt denies any signs and symptoms of hypoglycemia and does know how to correct it. Pt has not been checking her blood sugar. Will send sensor. Encouraged pt to get yearly eye exams. Pt c/o cervical neck pain with radicular symptoms down her LUE. Will order XR. [facility], [facility] Medical History (Updated 09/15/23 @ 11:44 by Alfredo Massey, 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 Sacroiliitis Asthma WENDY (obstructive sleep apnea) Morbid obesity Swelling of both lower extremities Afib Disc degeneration, lumbar Cervical pain (neck) Calcaneal spur Benign neoplasm breast skin Bursitis, shoulder Xanthelasma Auditory hallucinations Impaired glucose tolerance Hyperlipidemia Anxiety Depression Adenomatous polyp of colon Esophagitis Hypertensive urgency PAF (paroxysmal atrial fibrillation) Palpitations HTN (hypertension) Dyspepsia GERD (gastroesophageal reflux disease) Surgical History Hx of colonoscopy H/O esophagogastroduodenoscopy (09/01/15) Status post Margarita fundoplication (10/27/12) History of removal of cyst Hx of cholecystectomy History of hysterectomy Family History Father CVD (cardiovascular disease) HTN (hypertension) Diabetes Mother HTN (hypertension) Diabetes CVD (cardiovascular disease) Brother Pacemaker Maternal Grandmother Throat cancer Brother No problems noted. Daughter Hx LEEP (loop electrosurgical excision procedure), cervix, Other Mental health disorder Substance use disorder Social History Household Members: None Housing: House Are you a primary career technology teacher to a significant other at home: No Alcohol intake: never Patient Tobacco Use Status: Never used Tobacco e-Cigarette/Vaping Use: Never Used Second Hand Smoke Exposure: No Advance Directives Date on File: 03/16/21 Current occupational status: disabled Sexual orientation: Straight/Heterosexual Gender identity: Female Cognitive needs: No Hearing needs: No Vision needs: No Questionnaire Thrive Questionnaire Date Thrive assessed: 12/16/22 DION-7 AMB Questionnaire DION-7 Date DION - 7 assessed: 12/16/22 Source: Developed by Drs. Leonardo Grant, Philly Velasquez, Jose Ramon Poon and colleagues, with an educational gifty from [employer]. Review of Systems Const Reports as per HPI Physical exam (Primary Care) Vital Signs: Last Vital Signs Pulse 88 09/15/23 11:23 BP 130/80 09/15/23 11:23 Pulse Ox 99 09/15/23 11:23 Oxygen Delivery Method Room Air 09/15/23 11:23 BMI result Body Mass Index 41.4 Tobacco/Smoking Status: Tobacco use Status Tobacco use date assessed 04/14/23 09/15/23 11:23 Patient Tobacco Use Status Never used Tobacco 09/15/23 11:23 e-Cigarette/Vaping Use Never Used 09/15/23 11:23 Thrive Assessment: Date of Thrive Assessment Date Thrive assessed 12/16/22 09/15/23 11:23 Const General: cooperative Nutritional Appearance: obese morbidly obese Orientation/consciousness: patient oriented x3 Resp Effort & Inspection: normal respiratory effort Auscultation: clear to auscultation bilaterally Cardio Rate: regular rate Rhythm: regular rhythm Heart sounds: S1 normal heart sound present and S2 normal heart sound present Back/Spine/Pelvis Other: cervical neck pain exacerbated with turning head side to side, chin tucks, chin raises, + spurlings to left Neuro General: patient oriented x3 Extrem Other: bilat feet: no sensation with use of monofilament Psych Appearance: grossly normal Mental Status: mental status grossly normal Speech and movement: Normal speech and movement present Affect: normal affect Attitude: cooperative Thought process: Normal thought process present Thought content: Normal thought content present Insight: Good insight present (Psych) Judgement: Good judgement present (Psych) Results AMB Hemoglobin A1c AMB Hemoglobin A1c 6.5 % Last Edit by JARET Gill on 09/15/23 11:51 Results Reviewed Results Reviewed: Laboratory Last Values Hgb A1c (Clinic) 6.5 % (4.0-6.0) H 09/15/23 11:49 Assessment and Plan Assessment & Plan (1) Diabetes: Code(s): E11.9 - Type 2 diabetes mellitus without complications (2) Cervical neck pain with evidence of disc disease: Code(s): M50.90 - Cervical disc disorder, unspecified, unspecified cervical region Plan The patient agreed to the use of a medical records coder for this encounter. Scribed for DIAMOND [employer] by Anyi Reeves medical records coder, on 09/15/2023 at 11:35 EST Orders: Orders XR cervical spine 2V Today M50.90 - Cervical disc disorder, unspecified, unspecified cervical region AMB Hemoglobin A1c Today E11.9 - Type 2 diabetes mellitus without complications Complete Blood Count Auto Diff Today E11.9 - Type 2 diabetes mellitus without complications Comprehensive [place]. Panel Fast Today E11.9 - Type 2 diabetes mellitus without complications TSH reflex Free T4 Today E11.9 - Type 2 diabetes mellitus without complications UA CC w/rflx Micro + Cult Today E11.9 - Type 2 diabetes mellitus without complications Lipid Panel Today E11.9 - Type 2 diabetes mellitus without complications Coding Level of Care Code Est Pt Level 3 (06469) Diagnoses Diabetes E11.9 Cervical neck pain with evidence of disc disease M50.90
[2023-09-15 11:23] VITALS: BP 130/80; PULSE 88; O2SAT 99; BMI 41.4
== END 2023-09-15 11:47 | disposition home or self-care (01) ==
PROVIDERS: PCP Nurse Practitioner Family; Visit Provider Nurse Practitioner Family
DX: E11.9 Type 2 diabetes mellitus without complications (principal); M50.90 Cervical disc disorder, unspecified, unspecified cervical region
CPT/HCPCS: 83036; 99213

== ENCOUNTER 2023-09-15 11:48 | Outpatient (REF) | payer OTHER, SELFPAY ==
--- NOTE | ~2023-09-15 | XR_ITS ---
EXAMINATION: XR CERVICAL SPINE CLINICAL INFORMATION: Cervical discomfort COMPARISON: 01/15/2021 TECHNIQUE: 3 views of the cervical spine were obtained. FINDINGS: Straightening of the normal cervical lordosis. C7 obscured by overlying soft tissues. Advanced multilevel cervical spondylosis with hypertrophic change and loss of disc space height most notable at C5-C6 and possibly at C6-C7, although visualization of C6-C7 limited due to overlying soft tissues. XR/XR cervical spine 2V IMPRESSION: Advanced multilevel cervical spondylosis most notable at C5-C6 and possibly at C6-C7, although visualization of C6-C7 limited due to overlying soft tissues.
[2023-09-15 12:56] LABS: MANUAL DIFF FLAG NO
[2023-09-15 13:09] LABS: Appearance Urine Clear; Color Urine Yellow; Glucose Urine UA Negative (Negative); Leukocyte Esterase Urine Large (3+) (Negative); Nitrite Urine Negative (Negative); Specific Gravity - Urine 1.015 (1.005-1.025); UMIC TRIGGER UACC YES; Urine Blood Negative (Negative); Urine Ketones Negative (Negative); Urine Protein Negative (Neg-Trace)
[2023-09-15 13:10] LABS: Basophils Percent Auto 0.6 % (0-2); Eosinophils Absolute Auto 0.2 X10*3/uL (0.0-0.4); Eosinophils Percent Auto 2.2 % (0-4); Hematocrit 38.4 % (37.0-47.0); Hemoglobin 12.4 g/dl (12.0-16.0); Imm Gran Abs Auto 0.04 X10*3/uL (0.00-0.03); Imm Gran Pct Auto 0.6 % (0.0-0.4); Lymphocytes Absolute Auto 1.8 X10*3/uL (1.2-4.9); Lymphocytes Percent Auto 27.4 % (20-40); Mean Corpuscular HGB Conc 32.3 g/dl (31.0-35.0); Mean Corpuscular Hemoglobin 26.9 pg (27.0-33.0); Mean Corpuscular Volume 83.3 fL (80.0-98.0); Mean Platelet Volume 11.8 fL (9.4-12.3); Monocytes Absolute Auto 0.4 X10*3/uL (0.1-1.2); Monocytes Percent Auto 5.2 % (2-11); Neutrophils Absolute Auto 4.3 x10*3/uL (2.0-8.3); Platelet Count 289 X10*3/uL (160-400); Red Blood Count 4.61 X10*6/uL (4.20-5.50); Red Cell Distribution Width 15.1 % (11.0-16.0); White Blood Count 6.7 X10*3/uL (4.8-10.8)
[2023-09-15 13:14] LABS: Bacteria Urine 2+ (None Seen); Hyaline Casts Urine 0-2 /LPF (0-2); RBC Urine 0-2 /HPF (0-2); UACC Culture Trigger YES; WBC Urine 21-50 /HPF (0-5)
[2023-09-15 13:27] LABS: Alanine Aminotransferase 20 U/L (0-31); Alkaline Phosphatase 106 U/L (39-117); Anion Gap 11 (12-20); Aspartate Amino Transferase 16 U/L (5-31); Bilirubin Total 0.5 mg/dL (0.0-1.0); Blood Urea Nitrogen 22 mg/dL (9-16); Calcium 9.7 mg/dL (8.4-10.2); Carbon Dioxide 26 mmol/L (22-29); Chloride 108 mmol/L (96-108); Cholesterol 205 mg/dL (<200); Estimated Glomerular Filt Rate 46; Glucose Fasting 115 mg/dL (60-99); HDL Cholesterol 52 mg/dL (>40); LDL Cholesterol Calculated 132 mg/dL (<100); Potassium 4.3 mmol/L (3.3-5.1); Sodium 141 mmol/L (135-145); Total Protein 7.5 g/dL (6.5-8.0); Triglycerides 109 mg/dL (<150)
[2023-09-15 13:44] LABS: TSH reflex Free T4 1.03 uIU/mL (0.32-4.0)
== END 2023-09-15 11:49 | disposition home or self-care (01) ==
LOC: HO.HMGCX 11:48
PROVIDERS: PCP Nurse Practitioner Family; Visit Provider Nurse Practitioner Family
DX: M50.90 Cervical disc disorder, unspecified, unspecified cervical region (principal); E11.9 Type 2 diabetes mellitus without complications; R82.90 Unspecified abnormal findings in urine
CPT/HCPCS: 36415; 72040; 80053; 80061; 81001; 81003; 84443; 85025; 87086; 87147

== ENCOUNTER 2023-09-21 13:17 | Outpatient (AMB) | payer OTHER, SELFPAY ==
[2023-09-21 13:33] VITALS: BP 168/72; PULSE 83; RESP 16; O2SAT 97; BMI 40.8
--- NOTE | 2023-09-21 13:33 | A.OFFVIS_ITS ---
Intake Vital Signs 09/21/23 13:33 Height 5 ft 1 in Weight 216 lb BMI 40.8 BP 168/72 H Blood Pressure Location Lt brachial Position Sitting Respiration 16 Pulse 83 Pulse Source Pulse Oximeter Pulse Oximetry (%) 97 Oxygen Delivery Method Room Air Intake Visit Reasons: Medication Count /Confirmed Allergies ibuprofen [IBUPROFEN] Allergy (Mild, Verified 09/21/23 13:34) RASH, hives, hives HPI HPI Comments History of Present Illness Details Nydia is a pleasant 58 year old female who presents to the office today for follow up chronic pain and chronic opioid therapy management. Patient is prescribed oxycodone 5mg tabs, take one tablet by mouth twice daily as needed for pain. Patient arrived today with the expectation of having 9 pills, she presented 9 pills. This demonstrates responsible attitude toward patient's opioid medications. Pain is reported today as 6/10 and last dose of pain medication was taken yesterday at 11pm. Pain is adequately managed on current opioid regimen. Patient denies any recent changes or exacerbations of her chronic back pain and states she is able to engage in activities of daily living with minimal interruption due to chronic pain. Patient denies side effects including somnolence, constipation, itching, dyspnea, rash, dizziness or weakness. ? ? 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 Sacroiliitis Asthma WENDY (obstructive sleep apnea) Morbid obesity Swelling of both lower extremities Afib Disc degeneration, lumbar Cervical pain (neck) Calcaneal spur Benign neoplasm breast skin Bursitis, shoulder Xanthelasma Auditory hallucinations Impaired glucose tolerance Hyperlipidemia Anxiety Depression Adenomatous polyp of colon Esophagitis Hypertensive urgency PAF (paroxysmal atrial fibrillation) Palpitations HTN (hypertension) Dyspepsia GERD (gastroesophageal reflux disease) Surgical History Hx of colonoscopy H/O esophagogastroduodenoscopy (09/01/15) Status post Margarita fundoplication (10/27/12) History of removal of cyst Hx of cholecystectomy History of hysterectomy Family History Father CVD (cardiovascular disease) HTN (hypertension) Diabetes Mother HTN (hypertension) Diabetes CVD (cardiovascular disease) Brother Pacemaker Maternal Grandmother Throat cancer Brother No problems noted. Daughter Hx LEEP (loop electrosurgical excision procedure), cervix, Other Mental health disorder Substance use disorder Social History Household Members: None Housing: House Are you a primary career counselor to a significant other at home: No Alcohol intake: never Patient Tobacco Use Status: Never used Tobacco e-Cigarette/Vaping Use: Never Used Second Hand Smoke Exposure: No Advance Directives Date on File: 03/16/21 Current occupational status: disabled Sexual orientation: Straight/Heterosexual Gender identity: Female Cognitive needs: No Hearing needs: No Vision needs: No Review of Systems Const All systems reviewed & are unremarkable except as noted in HPI and below Physical Exam Vital Signs: Last Vital Signs Pulse 83 09/21/23 13:33 Resp 16 09/21/23 13:33 BP 168/72 H 09/21/23 13:33 Pulse Ox 97 09/21/23 13:33 Oxygen Delivery Method Room Air 09/21/23 13:33 BMI result Body Mass Index 40.8 General: awake, alert, oriented. Answers questions appropriately. Fully engaged in examination. Skin: warm, dry, intact HEENT: Normocephalic. Hearing intact. Cardiac: External chest normal in appearance. Respiratory: No cough, audible wheezing or stridor. Abdomen: without gross distension. MS: No obvious swelling or deformities. Neurological: Oriented to person, place, time and situation. Thought process intact. Psychiatric: Appropriate mood and affect. Good judgment and insight. Results Reviewed Results Reviewed: 07/26/23 XR HIP, LEFT CLINICAL INFORMATION: Primary osteoarthritis. FINDINGS: No fracture. Alignment is anatomic. Hip joint space is maintained. Soft tissues are unremarkable. A left tubal ligation clip is noted. IMPRESSION: Normal left hip. Assessment & Plan Assessment & Plan (1) Neuropathy: Comment: bilateral feet Code(s): G62.9 - Polyneuropathy, unspecified (2) Osteoarthritis of left hip: Code(s): M16.12 - Unilateral primary osteoarthritis, left hip (3) Arthritis of left knee: Code(s): M17.12 - Unilateral primary osteoarthritis, left knee Plan Masspat was reviewed and without concerns, pill count without concerns. No obvious signs of diversion, abuse or misuse of the opioid medication. Refill of oxycodone 5mg PO BID PRN sent today with refill date 09/25/2023. Patient to follow-up in the office in 1 month, sooner if needed. All questions and concerns have been answered and patient agrees with the plan. Medications: Refilled oxycodone 5 mg PO BID PRN 45 tabs 0RF pain 30 days M46.1 - Sacroiliitis, not elsewhere classified, M54.30 - Sciatica, unspecified side Coding Level of Care Code Est Pt Level 3 (23716) Diagnoses Neuropathy G62.9 Osteoarthritis of left hip M16.12 Arthritis of left knee M17.12
== END 2023-09-21 13:40 | disposition home or self-care (01) ==
PROVIDERS: PCP Nurse Practitioner Family; Visit Provider Registered Nurse Emergency
DX: G62.9 Polyneuropathy, unspecified (principal); M16.12 Unilateral primary osteoarthritis, left hip; M17.12 Unilateral primary osteoarthritis, left knee; Z79.891 Long term (current) use of opiate analgesic
CPT/HCPCS: 99213

== ENCOUNTER → 2023-09-21 13:17 | Outpatient (BNVA) | payer OTHER, SELFPAY | PROVIDERS: PCP Nurse Practitioner Family; Visit Provider Registered Nurse Emergency | DX: G62.9 Polyneuropathy, unspecified (principal); M16.12 Unilateral primary osteoarthritis, left hip; M17.12 Unilateral primary osteoarthritis, left knee; Z79.891 Long term (current) use of opiate analgesic | CPT/HCPCS: 99212 ==

== ENCOUNTER 2023-09-28 09:36 | Outpatient (AMB) | payer OTHER, SELFPAY ==
--- NOTE | 2023-09-28 11:00 | AM.OFFWIN_ITS ---
Intake Vital Signs 09/28/23 11:02 Height 5 ft 1 in Weight 220 lb BMI 41.6 BP 136/78 Blood Pressure Location Rt brachial Position Sitting Pulse 87 Pulse Source Pulse Oximeter Temp 97.8 F Temp Source Temporal Artery Scan Pulse Oximetry (%) 98 Oxygen Delivery Method Room Air Intake Visit Reasons: EST/sore throat (lobby masked) Intake Note: pt is here for c/o sore throat Patient Tobacco Use Status: Never used Tobacco Allergies ibuprofen [IBUPROFEN] Allergy (Mild, Verified 09/28/23 11:16) RASH, hives, hives Medication List - Last Reconciled 09/28/23 by Kimberly Freeman, ADULT REMEDIAL EDUCATION INSTRUCTOR- albuterol sulfate 5 mg inhalation Q4H PRN albuterol sulfate 90 mcg/actuation 2 puffs inhalation Q4-6H PRN amlodipine 10 mg PO DAILY 90 days aripiprazole 5 mg PO DAILY atorvastatin 40 mg PO DAILY 90 days blood pressure kit-extra large As directed blood sugar diagnostic (Magine Ultra Test strips) Use to check blood sugar twice daily: fasting blood sugar and a random blood sugar blood-glucose meter (Magine Ultra2 Meter) Use to check blood sugar twice daily: fasting blood sugar and a random blood sugar buspirone 15 mg PO BID cholecalciferol (vitamin D3) 50 mcg PO DAILY clonidine HCl 0.1 mg PO BID 30 days diclofenac sodium 1% (Arthritis Pain (diclofenac)) 4 grams topical QID 30 days docusate sodium 100 mg PO BEDTIME fluticasone propionate 110 mcg/actuation 1 puff inhalation BID 30 days hydrochlorothiazide 25 mg PO DAILY 30 days hydroxyzine HCl 10 mg PO TID PRN incontinence pad, liner, disp use daily for incont ketoconazole 2% 1 appl topical DAILY lancets (Magine Delica Lancets) Use to check blood sugar twice daily: fasting blood sugar and a random blood sugar lisinopril 40 mg PO DAILY 90 days melatonin 3 mg PO BEDTIME PRN melatonin 3 mg PO QPM naloxone 4 mg/actuation (Narcan) 4 mg intranasal Q2M PRN omeprazole 20 mg PO BID 90 days oxycodone 5 mg PO BID PRN 30 days rivaroxaban (Xarelto) 20 mg PO DAILY sertraline 100 mg PO DAILY spironolactone 25 mg PO BID tizanidine 4 mg PO TID PRN zolpidem 5 mg PO BEDTIME PRN Do you need a note to return to daycare/school/sports/work: Yes HPI HPI Comments History of Present Illness Details HERE TODAY WITH COMPLAINTS OF SORE THROAT THIS STARTED YESTERDAY. IN ADDITION SHE REPORTS PAIN IN BILATERAL EARS, PAINFUL SWALLOWING, AND HEADACHE. HAS NOT BEEN USING ANYTHING TO TREAT HER PAIN. DENIES ANY SICK CONTACTS. REPORTS HE IS UP-TO-DATE ON HER VACCINES. 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 Sacroiliitis Asthma WENDY (obstructive sleep apnea) Morbid obesity Swelling of both lower extremities Afib Disc degeneration, lumbar Cervical pain (neck) Calcaneal spur Benign neoplasm breast skin Bursitis, shoulder Xanthelasma Auditory hallucinations Impaired glucose tolerance Hyperlipidemia Anxiety Depression Adenomatous polyp of colon Esophagitis Hypertensive urgency PAF (paroxysmal atrial fibrillation) Palpitations HTN (hypertension) Dyspepsia GERD (gastroesophageal reflux disease) Surgical History Hx of colonoscopy H/O esophagogastroduodenoscopy (09/01/15) Status post Margarita fundoplication (10/27/12) History of removal of cyst Hx of cholecystectomy History of hysterectomy Family History Father CVD (cardiovascular disease) HTN (hypertension) Diabetes Mother HTN (hypertension) Diabetes CVD (cardiovascular disease) Brother Pacemaker Maternal Grandmother Throat cancer Brother No problems noted. Daughter Hx LEEP (loop electrosurgical excision procedure), cervix, Other Mental health disorder Substance use disorder Social History Household Members: None Housing: House Are you a primary adult care manager to a significant other at home: No Alcohol intake: never Patient Tobacco Use Status: Never used Tobacco e-Cigarette/Vaping Use: Never Used Second Hand Smoke Exposure: No Advance Directives Date on File: 03/16/21 Current occupational status: disabled Sexual orientation: Straight/Heterosexual Gender identity: Female Cognitive needs: No Hearing needs: No Vision needs: No Review of Systems Const All systems reviewed & are unremarkable except as noted in HPI and below Physical Exam Vital Signs: Last Vital Signs Temp 97.8 F 09/28/23 11:02 Pulse 87 09/28/23 11:02 BP 136/78 09/28/23 11:02 Pulse Ox 98 09/28/23 11:02 Oxygen Delivery Method Room Air 09/28/23 11:02 BMI result Body Mass Index 41.6 Const Other: AWAKE ALERT, MILDLY ILL APPEARING BUT IN NAD CONJUNTIVA INJECTED BILAT, SCLERAS NORMAL TM INTACT BILAT, + CLOUDING AND LOSS OF LANDMARKS R>L NARES PATENT, SINUSES NONTENDER TO PALP PHARYNX + ERYTHEMA, + HALITOSIS, MANAGING SECRETIONS + AC ADENOPATHY BILAT RRR LS CTAB Results AMB Rapid Strep AMB Rapid Strep Positive Last Edit by Tanesha Junior CMA on 09/28/23 11:13 Assessment & Plan Assessment & Plan (1) Strep throat: Code(s): J02.0 - Streptococcal pharyngitis Orders: Orders AMB Rapid Strep Screen Today Z13.9 - Encounter for screening, unspecified Medications: New amoxicillin-pot clavulanate 875-125 mg 1 tab PO BID 7 days 14 tabs 0RF Patient Instructions: STREP POSITIVE. TREAT WITH AMOXICILLIN. ADVISED TO TAKE DIRECTED WITH FO OD. ADVISED TO CHANGE HER TOOTHBRUSH AFTER 24 HOURS OF ANTIBIOTICS, WASH BWS LINEN IN HOT WATER AFTER 24 HOURS OF ANTIBIOTICS. USE OTC ANALGESICS TO HELP DISCOMFORT. DIET TOLERATED. EDU ON REASONS TO SEEK ADDL CARE Coding Level of Care Code Est Pt Level 3 (66538) Diagnoses Strep throat J02.0
[2023-09-28 11:02] VITALS: BP 136/78; PULSE 87; TEMP 36.6; O2SAT 98; BMI 41.6
== END 2023-09-28 11:31 | disposition home or self-care (01) ==
PROVIDERS: PCP Nurse Practitioner Family; Visit Provider Nurse Practitioner Family
DX: J02.0 Streptococcal pharyngitis (principal); J02.9 Acute pharyngitis, unspecified
CPT/HCPCS: 87880; 99213

== ENCOUNTER → 2023-10-11 19:30 | Outpatient (REF) | payer OTHER, SELFPAY | LOC: HO.SL 19:30 | PROVIDERS: PCP Nurse Practitioner Family; Visit Provider Nurse Practitioner Family | DX: G47.33 Obstructive sleep apnea (adult) (pediatric) (principal) | CPT/HCPCS: 95811 ==

== ENCOUNTER → 2023-10-11 21:00 | Outpatient (BNV) | payer OTHER, SELFPAY | PROVIDERS: PCP Nurse Practitioner Family; Visit Provider Psychiatry & Neurology Neurology | DX: G47.33 Obstructive sleep apnea (adult) (pediatric) (principal) | CPT/HCPCS: 95811 ==

== ENCOUNTER 2023-10-19 13:14 | Outpatient (AMB) | payer OTHER, SELFPAY ==
[2023-10-19 13:23] VITALS: BP 120/58; PULSE 80; RESP 14; O2SAT 99; BMI 41.6
--- NOTE | 2023-10-19 13:23 | MHC.OFFVIS ---
Intake Vital Signs 10/19/23 13:23 Height 5 ft 1 in Weight 220 lb BMI 41.6 BP 120/58 L Blood Pressure Location Lt brachial Position Sitting Respiration 14 Pulse 80 Pulse Source Pulse Oximeter Pulse Oximetry (%) 99 Oxygen Delivery Method Room Air Intake Visit Reasons: PILL COUNT Allergies ibuprofen [IBUPROFEN] Allergy (Mild, Verified 10/19/23 13:22) RASH, hives, hives HPI HPI Comments History of Present Illness Details Nydia is a pleasant 58 year old female who presents to the office today for follow up chronic pain and chronic opioid therapy management. Patient is prescribed oxycodone 5mg tabs, take one tablet by mouth twice daily as needed for pain. Patient arrived today with the expectation of having 0 pills, she presented 13 pills. This demonstrates responsible attitude toward patient's opioid medications. Pain is reported today as 7/10 and last dose of pain medication was taken yesterday at 11pm. Pain is adequately managed on current opioid regimen. Patient denies any recent changes or exacerbations of her chronic back pain and states she is able to engage in activities of daily living with minimal interruption due to chronic pain. Patient denies side effects including somnolence, constipation, itching, dyspnea, rash, dizziness or weakness. Patient continues to c/o pain in the left hip/buttocks. Xray from 07/2023 reviewed with patient. She has not attended PT for this pain but is willing to try. ? ? 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 Sacroiliitis Asthma WENDY (obstructive sleep apnea) Morbid obesity Swelling of both lower extremities Afib Disc degeneration, lumbar Cervical pain (neck) Calcaneal spur Benign neoplasm breast skin Bursitis, shoulder Xanthelasma Auditory hallucinations Impaired glucose tolerance Hyperlipidemia Anxiety Depression Adenomatous polyp of colon Esophagitis Hypertensive urgency PAF (paroxysmal atrial fibrillation) Palpitations HTN (hypertension) Dyspepsia GERD (gastroesophageal reflux disease) Surgical History (Updated 09/30/23 @ 08:35 by Amparo Cast) Hx of colonoscopy H/O esophagogastroduodenoscopy (09/01/15) Status post Margarita fundoplication (10/27/12) History of removal of cyst Hx of cholecystectomy History of hysterectomy Family History Father CVD (cardiovascular disease) HTN (hypertension) Diabetes Mother HTN (hypertension) Diabetes CVD (cardiovascular disease) Brother Pacemaker Maternal Grandmother Throat cancer Brother No problems noted. Daughter Hx LEEP (loop electrosurgical excision procedure), cervix, Other Mental health disorder Substance use disorder Social History Household Members: None Housing: House Are you a primary district manager primary care sales to a significant other at home: No Alcohol intake: never Patient Tobacco Use Status: Never used Tobacco e-Cigarette/Vaping Use: Never Used Second Hand Smoke Exposure: No Advance Directives Date on File: 03/16/21 Current occupational status: disabled Sexual orientation: Straight/Heterosexual Gender identity: Female Cognitive needs: No Hearing needs: No Vision needs: No Review of Systems Const All systems reviewed & are unremarkable except as noted in HPI and below Physical Exam Vital Signs: Last Vital Signs Pulse 80 10/19/23 13:23 Resp 14 10/19/23 13:23 BP 120/58 L 10/19/23 13:23 Pulse Ox 99 10/19/23 13:23 Oxygen Delivery Method Room Air 10/19/23 13:23 BMI result Body Mass Index 41.6 General: awake, alert, oriented. Answers questions appropriately. Fully engaged in examination. Skin: warm, dry, intact HEENT: Normocephalic. Hearing intact. Cardiac: External chest normal in appearance. Respiratory: No cough, audible wheezing or stridor. Abdomen: without gross distension. MS: No obvious swelling or deformities. Full ROM left hip, no pain with I/E rotation Neurological: Oriented to person, place, time and situation. Thought process intact. Psychiatric: Appropriate mood and affect. Good judgment and insight. Results Reviewed Results Reviewed: 07/26/23 XR HIP, LEFT CLINICAL INFORMATION: Primary osteoarthritis. FINDINGS: No fracture. Alignment is anatomic. Hip joint space is maintained. Soft tissues are unremarkable. A left tubal ligation clip is noted. IMPRESSION: Normal left hip. Assessment & Plan Assessment & Plan (1) Neuropathy: Comment: bilateral feet Code(s): G62.9 - Polyneuropathy, unspecified (2) Osteoarthritis of left hip: Code(s): M16.12 - Unilateral primary osteoarthritis, left hip (3) Arthritis of left knee: Code(s): M17.12 - Unilateral primary osteoarthritis, left knee Plan Masspat was reviewed and without concerns, pill count without concerns. No obvious signs of diversion, abuse or misuse of the opioid medication. Refill of oxycodone 5mg PO BID PRN sent today with refill date 10/26/2023. Order placed for PT eval/treat for left hip pain. Patient to follow-up in the office in 1 month, sooner if needed. All questions and concerns have been answered and patient agrees with the plan. Orders: Orders PT Evaluation and Treatment Today M25.552 - Pain in left hip Medications: Refilled oxycodone 5 mg PO BID 30 days PRN 45 tabs 0RF pain M46.1 - Sacroiliitis, not elsewhere classified, M54.30 - Sciatica, unspecified side Coding Level of Care Code Est Pt Level 4 (82091) Diagnoses Neuropathy G62.9 Osteoarthritis of left hip M16.12 Arthritis of left knee M17.12
== END 2023-10-19 13:32 | disposition home or self-care (01) ==
PROVIDERS: PCP Nurse Practitioner Family; Visit Provider Registered Nurse Emergency
DX: G62.9 Polyneuropathy, unspecified (principal); M16.12 Unilateral primary osteoarthritis, left hip; M17.12 Unilateral primary osteoarthritis, left knee; Z79.891 Long term (current) use of opiate analgesic
CPT/HCPCS: 99214

== ENCOUNTER → 2023-10-19 13:14 | Outpatient (BNVA) | payer OTHER, SELFPAY | PROVIDERS: PCP Nurse Practitioner Family; Visit Provider Registered Nurse Emergency | DX: G47.30 Sleep apnea, unspecified (principal); G62.9 Polyneuropathy, unspecified; M16.12 Unilateral primary osteoarthritis, left hip; M17.12 Unilateral primary osteoarthritis, left knee | CPT/HCPCS: 99212 ==

== ENCOUNTER 2023-10-19 14:26 | Outpatient (AMB) | payer OTHER, SELFPAY ==
--- NOTE | 2023-10-19 14:40 | MHC.OFFVIS ---
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 Pt underwent PSG sleep study and titration study. The sleep study result was significant for mild degree of sleep apnea with increased severity in REM sleep. The AHI was 7/hr, REM AHI was 30/hr and oxygen marge was 83%. Pt's breathing and oxygenation stabilized with CPAP at [id number]. She reports shortness of breath with any activity, including washing dishes she gets sob. Pt's sleep schedule is 2-3 am to 9 :30 am. Pt continues to endorse non refreshing sleep with daytime sleepiness. [facility] Medical History (Updated 10/28/23 @ 10:00 by Sujit Mancia CNP) Barretts esophagus Hx of flexible sigmoidoscopy Osteoarthritis of left hip Spondylosis without myelopathy or radiculopathy, 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 Sacroiliitis Asthma WENDY (obstructive sleep apnea) Morbid obesity Swelling of both lower extremities Afib Disc degeneration, lumbar Cervical pain (neck) Calcaneal spur Benign neoplasm breast skin Bursitis, shoulder Xanthelasma Auditory hallucinations Impaired glucose tolerance Hyperlipidemia Anxiety Depression Adenomatous polyp of colon Esophagitis Hypertensive urgency PAF (paroxysmal atrial fibrillation) Palpitations HTN (hypertension) Dyspepsia GERD (gastroesophageal reflux disease) Surgical History Hx of colonoscopy H/O esophagogastroduodenoscopy (09/01/15) Status post Margarita fundoplication (10/27/12) History of removal of cyst Hx of cholecystectomy History of hysterectomy Family History Father CVD (cardiovascular disease) HTN (hypertension) Diabetes Mother HTN (hypertension) Diabetes CVD (cardiovascular disease) Brother Pacemaker Maternal Grandmother Throat cancer Brother No problems noted. Daughter Hx LEEP (loop electrosurgical excision procedure), cervix, Other Mental health disorder Substance use disorder Social History Household Members: None Housing: House Are you a primary lead caregiver to a significant other at home: No Alcohol intake: never Patient Tobacco Use Status: Never used Tobacco e-Cigarette/Vaping Use: Never Used Second Hand Smoke Exposure: No Advance Directives Date on File: 03/16/21 Current occupational status: disabled Sexual orientation: Straight/Heterosexual Gender identity: Female Cognitive needs: No Hearing needs: No Vision needs: No Review of Systems Const All systems reviewed & are unremarkable except as noted in HPI and below ENT Reports Normal hearing present Neuro Reports Normal hearing present Physical Exam Vital Signs: Last Vital Signs Pulse 81 10/19/23 14:42 Resp 15 10/19/23 14:42 BP 122/68 10/19/23 14:42 Pulse Ox 98 10/19/23 14:42 Oxygen Delivery Method Room Air 10/19/23 14:42 Const General: no acute distress Nutritional Appearance: obese Orientation/consciousness: patient oriented x3 Limitations: ambulation with cane Resp Effort & Inspection: normal respiratory effort and able to speak in complete sentences Back/Spine/Pelvis Other: Antalgic gait on the right. Patient ambulates with cane. Neuro General: patient oriented x3 Cranial nerves: Yes Bilaterally intact EOM present, Yes Normal facial strength present, Yes Symmetric palate elevation present, Yes Normal hearing present, Yes Ability to bilaterally rotate head present and Yes Ability to bilaterally elevate shoulders present Cognition (Neuro): normal cognition Motor exam (neuro): 5/5 motor strength present throughout, Pronator motor function not present and no tremor noted Extrem Left lower extremity: hip/thigh Details: tenderness and abnormal ROM Details: pain with active ROM Details: with ADduction, with ABduction, with internal rotation and with external rotation Psych Appearance: well kempt Mental Status: mental status grossly normal Affect: normal affect Attitude: cooperative Thought process: Normal thought process present Thought content: Normal thought content present Insight: Good insight present (Psych) Judgement: Good judgement present (Psych) Assessment & Plan Assessment & Plan (1) Sleep apnea: Comment: Mild degree of sleep apnea with increased severity in REM. The AHI was 7/hr, REM AHI was 30/hr and oxygen marge was 83% Code(s): G47.30 - Sleep apnea, unspecified Plan Start CPAP at [id number]. Stressed CPAP compliance, use CPAP nightly and more than 4 hrs. Sleep hygiene education provided and wt reduction advised. Coding Level of Care Code Est Pt Level 3 (54432) Diagnoses Sleep apnea G47.30
[2023-10-19 14:42] VITALS: BP 122/68; PULSE 81; RESP 15; O2SAT 98
== END 2023-10-19 15:15 | disposition home or self-care (01) ==
PROVIDERS: PCP Nurse Practitioner Family; Visit Provider Nurse Practitioner Family
DX: G47.30 Sleep apnea, unspecified (principal)
CPT/HCPCS: 99213

== ENCOUNTER 2023-10-20 11:51 | Outpatient (AMB) | payer OTHER, SELFPAY ==
--- NOTE | 2023-10-20 11:56 | A.OFFVIS_ITS ---
Intake Vital Signs 10/20/23 12:00 Height 5 ft 1 in Weight 220 lb BMI 41.6 BP 131/69 Blood Pressure Location Lt brachial Position Sitting Pulse 81 Intake Visit Reasons: follow up missed from 06/30 Intake Note: Patient follow up Patient cc: abdominal cramping, denies any other GI issues. Rn Clinical Coordinator Required: No Accompanied by: Self / Same As Patient Allergies ibuprofen [IBUPROFEN] Allergy (Mild, Verified 10/20/23 11:56) RASH, hives, hives Medication List - Last Reconciled 10/20/23 by Mara Burger MD albuterol sulfate 5 mg inhalation Q4H PRN albuterol sulfate 90 mcg/actuation 2 puffs inhalation Q4-6H PRN amlodipine 10 mg PO DAILY 90 days aripiprazole 5 mg PO DAILY atorvastatin 40 mg PO DAILY 90 days blood pressure kit-extra large As directed blood sugar diagnostic ([employer] Ultra Test strips) Use to check blood sugar twice daily: fasting blood sugar and a random blood sugar blood-glucose meter ([employer] Ultra2 Meter) Use to check blood sugar twice daily: fasting blood sugar and a random blood sugar buspirone 15 mg PO BID cholecalciferol (vitamin D3) 50 mcg PO DAILY clonidine HCl 0.1 mg PO BID 30 days diclofenac sodium 1% (Arthritis Pain (diclofenac)) 4 grams topical QID 30 days docusate sodium 100 mg PO BEDTIME flash glucose scanning reader ([employer] Susu 2 [place]) As directed flash glucose sensor ([employer] Susu 2 Sensor kit) test blood sugar 4 times per day fluticasone propionate 110 mcg/actuation 1 puff inhalation BID 30 days hydrochlorothiazide 25 mg PO DAILY 30 days hydroxyzine HCl 10 mg PO TID PRN incontinence pad, liner, disp use daily for incont ketoconazole 2% 1 appl topical DAILY lancets ([employer] Delica Lancets) Use to check blood sugar twice daily: fasting blood sugar and a random blood sugar lisinopril 40 mg PO DAILY 90 days melatonin 3 mg PO BEDTIME PRN melatonin 3 mg PO QPM naloxone 4 mg/actuation (Narcan) 4 mg intranasal Q2M PRN omeprazole 20 mg PO BID 90 days oxycodone 5 mg PO BID PRN 30 days rivaroxaban (Xarelto) 20 mg PO DAILY sertraline 100 mg PO DAILY spironolactone 25 mg PO BID tizanidine 4 mg PO TID PRN zolpidem 5 mg PO BEDTIME PRN HPI follow up missed from 06/30 HPI Details GI CLINIC VISIT FOR THIS 57-YEAR-OLD MAURITANIAN-SPEAKING FEMALE FOR RECTAL BLEEDING, COLON POLYPS AND MALAVE'S ESOPHAGUS. PATIENT IS ON XARELTO FOR PAROXYSMAL ATRIAL FIBRILLATION AND IS FOLLOWED BY DR. LIZAMA ?CHRONIC ILLNESSES:?depression, anxiety, hypertension, sleep apnea, asthma, hyperlipidemia, impaired glucose tolerance, GERD with hiatal hernia, gallstones, auditory hallucinations, xanthelasma, bursitis of shoulder, benign neoplasm of skin and breast, chronic low back pain, calcaneal spur, bile salt induced diarrhea ?LABS IN [facility]:?12/14/19 NORMAL CHEM PANEL AND LFTS EXCEPT MILD INCREASE IN ALK P OF 131 ? 10/09 STOOL FOR H PYLORI ANTIGEN WAS NEGATIVE. ?IMAGING STUDIES: 01/01/21 ABDOMINAL US WAS NORMAL: ? LIVER: Normal. The liver is normal in size. The liver contour is normal. Parenchymal echogenicity is normal. No focal hepatic lesion. There is no intrahepatic biliary duct dilatation seen. GALLBLADDER: Surgically absent. COMMON BILE DUCT: Normal in caliber measuring 0.2 cm in diameter. 01/10/20 GASTRIC EMPTYING STUDY SHOWED: ? Retention in the stomach at each time interval was: ? 1 hour 59% (normal 37%-90%) ? 2 hours 6% (normal 30%-60%) ? 3 hours 5% ? 4 hours (Not Obtained) (normal 0%-10%) ? IMPRESSION: ? Normal solid food gastric emptying study. ? 08/[address] SCAN SHOWED: ? No evidence for acute abdominal or pelvic inflammatory or infectious processes. ? Small hiatal hernia. ?ENDOSCOPIC STUDIES; 01/26/23 EGD WAS PERFORMED BY DR CALDWELL FOR EVALUATION OF BLACK STOOLS: EGD Findings:? * Esophagus:? Severe esophagitis noted at the GEJ at 34 cm. One ulcer with small clot was seen at 6 o clock position. The ulcer started oozing after the clot was flushed off. A resolution 360 Endoclip was placed for hemostasis. The Z line was at 34 cm. Hiatal hernia was noted with diaphragmatic pinch at 36 cm. * Stomach: Scattered erosions and heme were noted mostly in the body and antrum. Random gastric biopsies were taken to rule out H Pylori infection. * Duodenum: ? A focal area with villous effacement and erythema was noted in the 2nd portion of the duodenum.? Cold forceps biopsies were taken.? Remaining duodenum normal.?EGD Impressions:? * Severe esophagitis with ulcer (endoclip) * Gastritis (biopsy) * Normal duodenum (biopsy)?? Recommendations:?? * Follow biopsy results. Our office will call or send a letter with results within 7-10 days. * ?continue omeprazole 20 mg b.i.d. for at least 8 weeks and then decrease to 20 mg per day.? * Repeat EGD will be scheduled in 8-10 weeks to assess for healing of esophagitis. * Resume anticoagulation tomorrow. * If H pylori +, patient will be prescribed eradication therapy followed by test of cure. * Avoid NSAIDs. * * 02/13/21 EGD AND COLONOSCOPY SHOWED: ? ESOPHAGUS: Focal esophagitis at GE junction with 1 cms tongue of Malave's - biopsied. ? Balloon dilation was performed with 19 and 20 mm CRE balloon x 60 seconds at each level. ? STOMACH: Gastritis and intact fundal wrap on retroflexed exam Colonoscopy Findings:? No polyps were detected. Moderate diverticulosis seen in the left colon Moderate hemorrhoids on retroflexed exam. Plan: Repeat Colonoscopy interval based on path results - in 3 years due to fair prep. Above findings were reviewed with the patient and GERD and diverticulosis handouts were given in the discharge area BIOPSIES SHOWED: A.? Small bowel, biopsy:? Duodenal mucosa within normal limits. B.? Stomach, antrum, biopsy:? Antral-type mucosa with mild chronic inactive inflammation; no Helicobacter organisms seen. C.? Esophagus, biopsy: - Malave esophagus with background mode rate chronic active inflammation. - No dysplasia seen. - Chronic esophagitis. 11/22/19 EGD AND FLEXIBLE SIGMOIDOSCOPY SH OWED: ? Endoscopy Findings: ? LARYNX: Normal ? ESOPHAGUS: Small hiatal hernia, minimal esophagitis and possible Malave's. ? STOMACH: Gastritis ? DUODENUM: Normal ? Flexible sigmoidoscopy Findings: ? One polyp removed ? Moderate diverticulosis seen in the sigmoid colon ? Moderate hemorrhoids on retroflexed exam - likely source of rectal bleeding. ? Plan: ? Await pathology results ? Patient has an appointment on 11/29/2019 in the GI Clinic with Mara Burger M.D. ? Pt to schedule a Colonoscopy interval based on path results - in 1-2 years if ? polyps are adenomatous and 10 years if polyps are hyperplastic. ? Above findings were reviewed with the patient. ? BIOPSIES SHOWED: ? A. Small bowel, biopsy: Small bowel mucosa with no significant histopathology; ? no villous abnormality identified; no increase in intraepithelial lymphocytes. ? B. Stomach, biopsy: Gastric mucosa with mild chronic, inactive gastritis; ? negative for Helicobacter pylori organisms; negative for intestinal metaplasia; negative for ? dysplasia. ? C. Esophagus, distal, biopsy: Esophagogastric junctional mucosa with moderate ? chronic inflammation and intestinal metaplasia (see Comment); negative for dysplasia; ? squamouS epithelium with reactive features suggestive of reflux disease. ? D. Colon, random, biopsy: Colonic mucosa within normal limits; no evidence of microscopic colitis. ? E. Colon, sigmoid polyp, polypectomy: Tubular adenoma. ? Comment: The findings are consistent with Malave's esophagus in the appropriate clinical/endoscopic setting. ? LETTER SENT ADVISING COLONOSCOPY IN 1 YEAR ?TODAY'S VISIT Pt declined a Nurse Chemical Dependency Notes intermittent lower cramps lasting for 5 minutes (usually twice a day) PAST VISITS: EGD results reviewed. Feels good and denies recent black stools Intentional wt loss of 50 lbs Nausea is better - denies nausea, abd pain or diarrhea. Weight and appetite has been stable. Accompanied by her daughter (works as an MA in wt management at [employer]) who interpreted for the pt Sometimes resolves after eating and sometimes persists. Notes heartburn mostly during the day. Has dinner at 5 pm and goes to bed at midnight - sometimes has a late night snack. Denies dysphagia. Abdominal pain is better. Has post prandial diarrhea since her GB surgery. Sometimes notes stinging in the rectum and there can be clear red blood on the TP. EGD and Colonoscopy and bx results were reviewed ? ? ? Denies recurrent abdominal pain. ? ? ? Patient notes improvement in dysphagia since esophageal balloon dilation ? ? ? Constipation has improved since she had her colonoscopy ?Complains of constant blanca-umblical abd pain for the past 3 days. ? ? ? Never had this pain in the past. ? ? ? Pain is 6/10 in intensity and is burning in character. ? ? ? Complains of nausea and has not been eating. ?? ? Vomited yesterday. ?? ? Denies fever or chills or any change in bowel habits.. ?? ? Took pork chops and thai fries 10 min before the pain started. ? ? ? Tried peptobismol and it did not help the pain. ? Feeling better, diagnosed with COVID infection last month and has recovered. ? Fever and body aches have cleared up ? Denies being constipated or having ongoing rectal bleeding. ? ? ? Having a lot of heartburn -? advised to increase omeprazole to 20 mg twice daily. ? Notes improvement in constipation - BM 1-2 times a day ? Notes some stinging when she uses the bathroom.. ? Denies blanca-anal pain/discomfort. Has not been using any topical agent for hemorrhoids. ? Denies ongoing diarrhea. ? Post prandial fullness after taking 5-6 bites has improved ? Takes 1-2 meals a day depending on her appetite. ? Has gained weight since the Pandemic [facility] Medical History (Updated 10/20/23 @ 12:16 by Mara Burger MD) Barretts esophagus Hx of flexible sigmoidoscopy Osteoarthritis of left hip Spondylosis without myelopathy or radiculopathy, 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 Sacroiliitis Asthma WENDY (obstructive sleep apnea) Morbid obesity Swelling of both lower extremities Afib Disc degeneration, lumbar Cervical pain (neck) Calcaneal spur Benign neoplasm breast skin Bursitis, shoulder Xanthelasma Auditory hallucinations Impaired glucose tolerance Hyperlipidemia Anxiety Depression Adenomatous polyp of colon Esophagitis Hypertensive urgency PAF (paroxysmal atrial fibrillation) Palpitations HTN (hypertension) Dyspepsia GERD (gastroesophageal reflux disease) Surgical History Hx of colonoscopy H/O esophagogastroduodenoscopy (09/01/15) Status post Margarita fundoplication (10/27/12) History of removal of cyst Hx of cholecystectomy History of hysterectomy Family History Father CVD (cardiovascular disease) HTN (hypertension) Diabetes Mother HTN (hypertension) Diabetes CVD (cardiovascular disease) Brother Pacemaker Maternal Grandmother Throat cancer Brother No problems noted. Daughter Hx LEEP (loop electrosurgical excision procedure), cervix, Other Mental health disorder Substance use disorder Social History Household Members: None Housing: House Are you a primary respiratory care instructor to a significant other at home: No Alcohol intake: never Patient Tobacco Use Status: Never used Tobacco e-Cigarette/Vaping Use: Never Used Second Hand Smoke Exposure: No Advance Directives Date on File: 03/16/21 Current occupational status: disabled Sexual orientation: Straight/Heterosexual Gender identity: Female Cognitive needs: No Hearing needs: No Vision needs: No Assessment & Plan Assessment & Plan (1) GERD (gastroesophageal reflux disease): Code(s): K21.9 - Gastro-esophageal reflux disease without esophagitis (2) Early satiety: Comment: 12/2019 gastric emptying study was normal Code(s): R68.81 - Early satiety (3) Chronic constipation: Code(s): K59.09 - Other constipation (4) Adenomatous polyp of colon: Code(s): D12.6 - Benign neoplasm of colon, unspecified (5) GERD (gastroesophageal reflux disease): Code(s): K21.9 - Gastro-esophageal reflux disease without esophagitis (6) Malave's esophagus without dysplasia: Comment: Repeat EGD in 3 yrs (due 01/2024) Code(s): K22.70 - Malave's esophagus without dysplasia (7) Continuous periumbilical abdominal pain: Comment: Resolved after colonoscopy. Code(s): R10.33 - Periumbilical pain (8) Abdominal cramps: Code(s): R10.9 - Unspecified abdominal pain Plan 58 year old Ghanaian-speaking female with depression, anxiety, hypertension, sleep apnea, asthma, hyperlipidemia, impaired glucose tolerance, GERD with hiatal hernia, auditory hallucinations, xanthelasma, bursitis of shoulder, benign neoplasm of skin and breast, chronic low back pain, calcaneal spur, bile salt induced diarrhea followed in GI for GERD, chronic constipation, history of colon polyps and hx of rectal bleeding - presumably from perianal skin lesions per patient. Patient complained of poor appetite and weight loss and reported a past history of peptic ulcer disease.? Stool test for H pylori antigen was negative PATIENT IS STATUS POST MARGARITA FUNDOPLICATION 2011. 11/08 evaluation with upper endoscopy showed a small hiatal hernia, minimal esophageal and gastritis. Same-day flexible sigmoidoscopy showed moderate sigmoid diverticulosis and internal hemorrhoids and a small tubular adenoma was removed. ?Esophageal biopsies showed presence of Malave's metaplasia.? Patient complains of symptoms of heartburn and was advised to increase omeprazole to 20 mg twice daily. Abdominal ultrasound and a gastric emptying study were normal. Symptoms are likely related to constipation and patient was advised to take MiraLax once daily with improvement in her symptoms Patient complains of periumbilical abdominal pain for the past 3 days associated with nausea and vomiting - now resolved ENDOSCOPIC STUDIES: 03/28/23 EGD SHOWED: ESOPHAGUS: Esophagitis seen on last EGD has healed. GE junction with 1 cms tongue of Malave's - biopsied. STOMACH: Mild gastritis Plan: Await pathology results BIOPSIES SHOWED: Gastroesophageal junction, biopsy: Squamocolumnar mucosa with mild inflammation and intestinal metaplasia; negative for dysplasia (see comment) Comment: These findings are consistent with Malave?s esophagus if the biopsies were taken from above the anatomic gastroesophageal junction. 01/2021 EGD AND COLONOSCOPY WERE PERFORMED: ESOPHAGUS: Focal esophagitis at GE junction with 1 cms tongue of Malave's - biopsied. Balloon dilation was performed with 19 and 20 mm CRE balloon x 60 seconds at each level. STOMACH: Gastritis and intact fundal wrap on retroflexed exam Colonoscopy Findings:? No polyps were detected. Moderate diverticulosis seen in the left colon Moderate hemorrhoids on retroflexed exam. Plan:? Repeat Colonoscopy interval based on path results - in 3 years due to fair prep - due on 01/2024. 09/16 - pt is feeling better with resolution of nausea and diarrhea Follow-up appointment in 5 month - I will schedule her for a colonoscopy on FU (FU of polyps and fair prep) Medications: New dicyclomine 20 mg PO BID 30 days PRN 60 tabs 3RF abdominal cramps R10.9 - Unspecified abdominal pain Coding Level of Care Code Est Pt Level 4 (24307) Diagnoses GERD (gastroesophageal reflux disease) K21.9 Early satiety R68.81 Chronic constipation K59.09 Adenomatous polyp of colon D12.6 Malave's esophagus without dysplasia K22.70 Continuous periumbilical abdominal pain R10.33 Abdominal cramps R10.9 Time Spent (min) 20
[2023-10-20 12:00] VITALS: BP 131/69; PULSE 81; BMI 41.6
== END 2023-10-20 12:25 | disposition home or self-care (01) ==
PROVIDERS: PCP Nurse Practitioner Family; Visit Provider Internal Medicine Gastroenterology
DX: K21.9 Gastro-esophageal reflux disease without esophagitis (principal); R68.81 Early satiety; K59.09 Other constipation; D12.6 Benign neoplasm of colon, unspecified; K22.70 Barrett's esophagus without dysplasia; R10.33 Periumbilical pain; R10.9 Unspecified abdominal pain
CPT/HCPCS: 99214

== ENCOUNTER → 2023-10-20 11:51 | Outpatient (BNVA) | payer OTHER, SELFPAY | PROVIDERS: PCP Nurse Practitioner Family; Visit Provider Internal Medicine Gastroenterology | DX: K21.9 Gastro-esophageal reflux disease without esophagitis (principal); K59.09 Other constipation; K22.70 Barrett's esophagus without dysplasia; R68.81 Early satiety; R10.33 Periumbilical pain; R10.9 Unspecified abdominal pain; D12.6 Benign neoplasm of colon, unspecified | CPT/HCPCS: 99212 ==

== ENCOUNTER 2023-11-16 13:15 | Outpatient (AMB) | payer OTHER, SELFPAY ==
[2023-11-16 13:18] VITALS: BP 137/70; PULSE 75; O2SAT 100; BMI 40.4
--- NOTE | 2023-11-16 13:18 | A.OFFVIS_ITS ---
Intake Vital Signs 11/16/23 13:18 Height 5 ft 2 in Weight 221 lb BMI 40.4 BP 137/70 Blood Pressure Location Rt brachial Position Sitting Pulse 75 Pulse Source Pulse Oximeter Pulse Oximetry (%) 100 Oxygen Delivery Method Room Air Intake Visit Reasons: Medication Count/confirmed Intake Note: Pt reports last taking the medication on 11/15/23 at 8 pm and a pain level of 5/10. Mental Hygiene Consultant Required: No Allergies ibuprofen [IBUPROFEN] Allergy (Mild, Verified 11/16/23 13:21) RASH, hives, hives HPI HPI Comments History of Present Illness Details Nydia is a pleasant 58 year old female who presents to the office today for follow up chronic pain and chronic opioid therapy management. Patient is prescribed oxycodone 5mg tabs, take one tablet by mouth twice daily as needed for pain. Patient arrived today with the expectation of having 27 pills, she presented 36 pills. This demonstrates responsible attitude toward patient's opioid medications. Pain is reported today as 5/10 and last dose of pain medication was taken yesterday at 8pm. Pain is adequately managed on current opioid regimen. Patient denies any recent changes or exacerbations of her chronic back pain and states she is able to engage in activities of daily living with minimal interruption due to chronic pain. Patient denies side effects including somnolence, constipation, itching, dyspnea, rash, dizziness or weakness. Patient continues to c/o pain in the left hip/buttocks. Patient states she was supposed to start PT today but had to reschedule as she already had 2 appo intments. She will be starting 11/28/23. ? ? 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 Sacroiliitis Asthma WENDY (obstructive sleep apnea) Morbid obesity Swelling of both lower extremities Afib Disc degeneration, lumbar Cervical pain (neck) Calcaneal spur Benign neoplasm breast skin Bursitis, shoulder Xanthelasma Auditory hallucinations Impaired glucose tolerance Hyperlipidemia Anxiety Depression Adenomatous polyp of colon Esophagitis Hypertensive urgency PAF (paroxysmal atrial fibrillation) Palpitations HTN (hypertension) Dyspepsia GERD (gastroesophageal reflux disease) Surgical History Hx of colonoscopy H/O esophagogastroduodenoscopy (09/01/15) Status post Margarita fundoplication (10/27/12) History of removal of cyst Hx of cholecystectomy History of hysterectomy Family History Father CVD (cardiovascular disease) HTN (hypertension) Diabetes Mother HTN (hypertension) Diabetes CVD (cardiovascular disease) Brother Pacemaker Maternal Grandmother Throat cancer Brother No problems noted. Daughter Hx LEEP (loop electrosurgical excision procedure), cervix, Other Mental health disorder Substance use disorder Social History Household Members: None Housing: House Are you a primary specialist wound care to a significant other at home: No Alcohol intake: never Patient Tobacco Use Status: Never used Tobacco e-Cigarette/Vaping Use: Never Used Second Hand Smoke Exposure: No Advance Directives Date on File: 03/16/21 Current occupational status: disabled Sexual orientation: Straight/Heterosexual Gender identity: Female Cognitive needs: No Hearing needs: No Vision needs: No Review of Systems Const All systems reviewed & are unremarkable except as noted in HPI and below Physical Exam Vital Signs: Last Vital Signs Pulse 75 11/16/23 13:18 BP 137/70 11/16/23 13:18 Pulse Ox 100 11/16/23 13:18 Oxygen Delivery Method Room Air 11/16/23 13:18 BMI result Body Mass Index 40.4 General: awake, alert, oriented. Answers questions appropriately. Fully engaged in examination. Skin: warm, dry, intact HEENT: Normocephalic. Hearing intact. Cardiac: External chest normal in appearance. Respiratory: No cough, audible wheezing or stridor. Abdomen: without gross distension. MS: No obvious swelling or deformities. Neurological: Oriented to person, place, time and situation. Thought process intact. Psychiatric: Appropriate mood and affect. Good judgment and insight. Assessment & Plan Assessment & Plan (1) Neuropathy: Comment: bilateral feet Code(s): G62.9 - Polyneuropathy, unspecified (2) Osteoarthritis of left hip: Code(s): M16.12 - Unilateral primary osteoarthritis, left hip (3) Arthritis of left knee: Code(s): M17.12 - Unilateral primary osteoarthritis, left knee Plan Masspat was reviewed and without concerns, pill count without concerns. No obvious signs of diversion, abuse or misuse of the opioid medication. Refill of oxycodone 5mg PO BID PRN sent today with refill date 11/26/2023. C/W plan for PT Patient to follow-up in the office in 1 month, sooner if needed. All questions and concerns have been answered and patient agrees with the plan. Medications: Refilled oxycodone 5 mg PO BID 30 days PRN 45 tabs 0RF pain M46.1 - Sacroiliitis, not elsewhere classified, M54.30 - Sciatica, unspecified side Coding Level of Care Code Est Pt Level 4 (77453) Diagnoses Neuropathy G62.9 Osteoarthritis of left hip M16.12 Arthritis of left knee M17.12
== END 2023-11-16 13:33 | disposition home or self-care (01) ==
PROVIDERS: PCP Nurse Practitioner Family; Visit Provider Registered Nurse Emergency
DX: G62.9 Polyneuropathy, unspecified (principal); M16.12 Unilateral primary osteoarthritis, left hip; M17.12 Unilateral primary osteoarthritis, left knee; Z79.891 Long term (current) use of opiate analgesic
CPT/HCPCS: 99214

== ENCOUNTER → 2023-11-16 13:15 | Outpatient (BNVA) | payer OTHER, SELFPAY | PROVIDERS: PCP Nurse Practitioner Family; Visit Provider Registered Nurse Emergency | DX: Z51.81 Encounter for therapeutic drug level monitoring (principal); F11.20 Opioid dependence, uncomplicated; M16.12 Unilateral primary osteoarthritis, left hip; M17.12 Unilateral primary osteoarthritis, left knee; G62.9 Polyneuropathy, unspecified | CPT/HCPCS: 99212 ==

== ENCOUNTER 2023-12-14 13:53 | Outpatient (AMB) | payer OTHER, SELFPAY ==
[2023-12-14 14:10] VITALS: BP 140/78; PULSE 72; RESP 18; O2SAT 97; BMI 39.8
--- NOTE | 2023-12-14 14:10 | MHC.OFFVIS ---
Intake Vital Signs 12/14/23 14:10 Height 5 ft 2 in Weight 217 lb 8 oz BMI 39.8 BP 140/78 H Blood Pressure Location Lt brachial Position Sitting Respiration 18 Pulse 72 Pulse Source Pulse Oximeter Pulse Oximetry (%) 97 Oxygen Delivery Method Room Air Intake Visit Reasons: Medication count - LVM Allergies ibuprofen [IBUPROFEN] Allergy (Mild, Verified 12/14/23 14:09) RASH, hives, hives HPI HPI Comments History of Present Illness Details Nydia is a pleasant 58 year old female who presents to the office today for follow up chronic pain and chronic opioid therapy management. Patient is prescribed oxycodone 5mg tabs, take one tablet by mouth twice daily as needed for pain. Patient arrived today with the expectation of having 0 pills, she presented 2 pills. This demonstrates responsible attitude toward patient's opioid medications. Pain is reported today as 7/10 and last dose of pain medication was taken yesterday at 8pm. Patient denies any recent changes or exacerbations of her chronic back pain and states she is able to engage in activities of daily living with minimal interruption due to chronic pain. Patient denies side effects including somnolence, constipation, itching, dyspnea, rash, dizziness or weakness. Patient continues to c/o pain in the left hip, had been scheduled for injection but had to cancel due to illness. Was sick with Flu and then Covid, she is now feeling better and would like to proceed with the injection. ? ? 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 Sacroiliitis Asthma WENDY (obstructive sleep apnea) Morbid obesity Swelling of both lower extremities Afib Disc degeneration, lumbar Cervical pain (neck) Calcaneal spur Benign neoplasm breast skin Bursitis, shoulder Xanthelasma Auditory hallucinations Impaired glucose tolerance Hyperlipidemia Anxiety Depression Adenomatous polyp of colon Esophagitis Hypertensive urgency PAF (paroxysmal atrial fibrillation) Palpitations HTN (hypertension) Dyspepsia GERD (gastroesophageal reflux disease) Surgical History Hx of colonoscopy H/O esophagogastroduodenoscopy (09/01/15) Status post Margarita fundoplication (10/27/12) History of removal of cyst Hx of cholecystectomy History of hysterectomy Family History Father CVD (cardiovascular disease) HTN (hypertension) Diabetes Mother HTN (hypertension) Diabetes CVD (cardiovascular disease) Brother Pacemaker Maternal Grandmother Throat cancer Brother No problems noted. Daughter Hx LEEP (loop electrosurgical excision procedure), cervix, Other Mental health disorder Substance use disorder Social History Household Members: None Housing: House Are you a primary primary care nurse practitioner to a significant other at home: No Alcohol intake: never Patient Tobacco Use Status: Never used Tobacco e-Cigarette/Vaping Use: Never Used Second Hand Smoke Exposure: No Advance Directives Date on File: 03/16/21 Current occupational status: disabled Sexual orientation: Straight/Heterosexual Gender identity: Female Cognitive needs: No Hearing needs: No Vision needs: No Review of Systems Const All systems reviewed & are unremarkable except as noted in HPI and below Physical Exam Vital Signs: Last Vital Signs Pulse 72 12/14/23 14:10 Resp 18 12/14/23 14:10 BP 140/78 H 12/14/23 14:10 Pulse Ox 97 12/14/23 14:10 Oxygen Delivery Method Room Air 12/14/23 14:10 BMI result Body Mass Index 39.8 General: awake, alert, oriented. Answers questions appropriately. Fully engaged in examination. Skin: warm, dry, intact HEENT: Normocephalic. Hearing intact. Cardiac: External chest normal in appearance. Respiratory: No cough, audible wheezing or stridor. Abdomen: without gross distension. Neurological: Oriented to person, place, time and situation. Thought process intact. Psychiatric: Appropriate mood and affect. Good judgment and insight. Extrem Left lower extremity: hip/thigh Details: tenderness and abnormal ROM Details: pain with active ROM Details: with ADduction, with ABduction, with internal rotation and with external rotation Results Reviewed Results Reviewed: 07/26/23 XR HIP, LEFT CLINICAL INFORMATION: Primary osteoarthritis. FINDINGS: No fracture. Alignment is anatomic. Hip joint space is maintained. Soft tissues are unremarkable. A left tubal ligation clip is noted. IMPRESSION: Normal left hip. Assessment & Plan Assessment & Plan (1) Neuropathy: Comment: bilateral feet Code(s): G62.9 - Polyneuropathy, unspecified (2) Osteoarthritis of left hip: Code(s): M16.12 - Unilateral primary osteoarthritis, left hip (3) Arthritis of left knee: Code(s): M17.12 - Unilateral primary osteoarthritis, left knee Plan Masspat was reviewed and without concerns, pill count without concerns. No obvious signs of diversion, abuse or misuse of the opioid medication. Oxycodone 5mg PO BID PRN sent last visit, awaiting pickup at pharmacy. Patient states she was waiting until current RX ran out. No new RX sent today. Will have them call to reschedule patient for left hip therapeutic injection with local anesthetic. Patient to follow-up in the office in 1 month, sooner if needed. All questions and concerns have been answered and patient agrees with the plan. Coding Level of Care Code Est Pt Level 3 (08883) Diagnoses Neuropathy G62.9 Osteoarthritis of left hip M16.12 Arthritis of left knee M17.12
== END 2023-12-14 14:25 | disposition home or self-care (01) ==
PROVIDERS: PCP Nurse Practitioner Family; Visit Provider Registered Nurse Emergency
DX: G62.9 Polyneuropathy, unspecified (principal); M16.12 Unilateral primary osteoarthritis, left hip; M17.12 Unilateral primary osteoarthritis, left knee; Z79.891 Long term (current) use of opiate analgesic
CPT/HCPCS: 99213

== ENCOUNTER → 2023-12-14 13:53 | Outpatient (BNVA) | payer OTHER, SELFPAY | PROVIDERS: PCP Nurse Practitioner Family; Visit Provider Registered Nurse Emergency | DX: Z51.81 Encounter for therapeutic drug level monitoring (principal); F11.20 Opioid dependence, uncomplicated; M16.12 Unilateral primary osteoarthritis, left hip; M17.12 Unilateral primary osteoarthritis, left knee; G62.9 Polyneuropathy, unspecified | CPT/HCPCS: 99212 ==

== ENCOUNTER 2024-01-03 06:07 | Outpatient (REF) | payer OTHER, SELFPAY ==
--- NOTE | ~2024-01-03 | FL_ITS ---
EXAMINATION: XR FLUOROSCOPY WITH IMAGES CLINICAL INFORMATION: Unilateral primary osteoarthritis left hip. COMPARISON: Left hip radiographs of 07/26/2023 TECHNIQUE: Fluoroscopy Supervised By: Dr. Mu Goldstein Fluoroscopy Time: 0.2 minutes Cumulative Dose: 10.2 mGy-cm DAP: 1.90 Gy-cm2 Images: 2 FINDINGS: Fluoroscopic imaging provided for procedure injection into the hip performed by Dr. Mu Goldstein. Please refer to operative report for more detailed evaluation. FL/FL guidance in treatment room IMPRESSION: Fluoroscopic imaging provided for procedure for left hip. Needle projects over hip. IMPRESSION: Fluoroscopic imaging guidance provided during procedure.
== END 2024-01-03 06:08 | disposition home or self-care (01) ==
LOC: CF 06:07
PROVIDERS: Visit Provider Anesthesiology
DX: M16.12 Unilateral primary osteoarthritis, left hip (principal); M17.12 Unilateral primary osteoarthritis, left knee; G62.9 Polyneuropathy, unspecified
CPT/HCPCS: 20610; J2795; J3301; Q9967

== ENCOUNTER 2024-01-03 08:52 | Outpatient (AMB) | payer OTHER, SELFPAY ==
--- NOTE | 2024-01-03 09:00 | A.OFFVIS_ITS ---
Intake Vital Signs 01/03/24 09:04 01/03/24 09:05 Height 5 ft 2 in 5 ft 2 in Weight 217 lb 217 lb BMI 39.7 39.7 BP 118/68 163/80 H Blood Pressure Location Lt brachial Lt brachial Position Sitting Sitting Respiration 16 16 Pulse 73 65 Pulse Source Pulse Oximeter Pulse Oximeter Pulse Oximetry (%) 99 100 Oxygen Delivery Method Room Air Room Air Comment pre-op post-op Intake Visit Reasons: LEFT INTRA-ARTICULAR HIP INJECTION Allergies ibuprofen [IBUPROFEN] Allergy (Mild, Verified 01/03/24 09:03) RASH, hives, hives PFSH Medical History (Updated 10/28/23 @ 10:00 by Sujit Mancia CNP) Barretts esophagus Hx of flexible sigmoidoscopy Osteoarthritis of left hip Spondylosis without myelopathy or radiculopathy, 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 Sacroiliitis Asthma WENDY (obstructive sleep apnea) Morbid obesity Swelling of both lower extremities Afib Disc degeneration, lumbar Cervical pain (neck) Calcaneal spur Benign neoplasm breast skin Bursitis, shoulder Xanthelasma Auditory hallucinations Impaired glucose tolerance Hyperlipidemia Anxiety Depression Adenomatous polyp of colon Esophagitis Hypertensive urgency PAF (paroxysmal atrial fibrillation) Palpitations HTN (hypertension) Dyspepsia GERD (gastroesophageal reflux disease) Surgical History Hx of colonoscopy H/O esophagogastroduodenoscopy (09/01/15) Status post Margarita fundoplication (10/27/12) History of removal of cyst Hx of cholecystectomy History of hysterectomy Family History Father CVD (cardiovascular disease) HTN (hypertension) Diabetes Mother HTN (hypertension) Diabetes CVD (cardiovascular disease) Brother Pacemaker Maternal Grandmother Throat cancer Brother No problems noted. Daughter Hx LEEP (loop electrosurgical excision procedure), cervix, Other Mental health disorder Substance use disorder Social History Household Members: None Housing: House Are you a primary hospice patient care secretary to a significant other at home: No Alcohol intake: never Patient Tobacco Use Status: Never used Tobacco e-Cigarette/Vaping Use: Never Used Second Hand Smoke Exposure: No Advance Directives Date on File: 03/16/21 Current occupational status: disabled Sexual orientation: Straight/Heterosexual Gender identity: Female Cognitive needs: No Hearing needs: No Vision needs: No Physical Exam Vital Signs: Last Vital Signs Pulse 65 01/03/24 09:05 Resp 16 01/03/24 09:05 BP 163/80 H 01/03/24 09:05 Pulse Ox 100 01/03/24 09:05 Oxygen Delivery Method Room Air 01/03/24 09:05 BMI result Body Mass Index 39.7 Assessment & Plan Assessment & Plan (1) Neuropathy: Comment: bilateral feet Code(s): G62.9 - Polyneuropathy, unspecified (2) Osteoarthritis of left hip: Code(s): M16.12 - Unilateral primary osteoarthritis, left hip (3) Arthritis of left knee: Code(s): M17.12 - Unilateral primary osteoarthritis, left knee Plan: Left hip joint steroid injection. Informed consent was explained to the patient. All questions were explained and answered. The patient was taken inside of the operating room where she was positioned right lateral decubitus on operating table.. Time-out was performed delineating patient's name and date of , correct site, side, the nature of the procedure, patient's allergy.. All operating room staff was participating in OR time-out procedure. Left hip area of the patient was prepped with ChloraPrep and draped with sterile towels. C-arm was brought over the operating field and picture of left and right lateral views of the bilateral hip joints were delineated on the screen. The smaller joint silhouette was chosen as the target. Projection of the right trochanter to the skin was chosen as the initial needle insertion point. After that the skin and subcutaneous tissues was anesthetized with 2% lidocaine 2.5 mL. 22 gauge 5 in long needle was inserted through the skin and started to advance to the joint space under intermittent lateral and anterior posterior views. When needle entered the capsule of the joint small amount of the contrast was injected delineating intra-articular space. After that treatment solution containing 3 cc of lidocaine 2%, 2 cc of bupivacaine 0.5% and 40 mg of Kenalog was injected into the joint. The needle was withdrawn sterile dressing was applied.The patient tolerated procedure well Plan Masspat was reviewed and without concerns, pill count without concerns. No obvious signs of diversion, abuse or misuse of the opioid medication. Oxycodone 5mg PO BID PRN sent last visit, awaiting pickup at pharmacy. Patient states she was waiting until current RX ran out. No new RX sent today. Will have them call to reschedule patient for left hip therapeutic injection with local anesthetic. Patient to follow-up in the office in 1 month, sooner if needed. All questions and concerns have been answered and patient agrees with the plan. Coding Level of Care Code Procedure Only Diagnoses Neuropathy G62.9 Osteoarthritis of left hip M16.12 Arthritis of left knee M17.12
[2024-01-03 09:04] VITALS: BP 118/68; PULSE 73; RESP 16; O2SAT 99; BMI 39.7
[2024-01-03 09:05] VITALS: BP 163/80; PULSE 65; RESP 16; O2SAT 100; BMI 39.7
== END 2024-01-03 10:36 | disposition home or self-care (01) ==
LOC: HO.PMCPRC 08:52
PROVIDERS: PCP Nurse Practitioner Family; Visit Provider Anesthesiology
DX: G62.9 Polyneuropathy, unspecified (principal); M16.12 Unilateral primary osteoarthritis, left hip; M17.12 Unilateral primary osteoarthritis, left knee
CPT/HCPCS: 20610

== ENCOUNTER 2024-01-11 12:54 | Outpatient (AMB) | payer OTHER, SELFPAY ==
[2024-01-11 13:10] VITALS: BP 210/93; PULSE 64; RESP 20; O2SAT 99; BMI 40.8
--- NOTE | 2024-01-11 13:10 | MHC.OFFVIS ---
Intake Vital Signs 01/11/24 13:10 01/11/24 13:20 Height 5 ft 2 in Weight 223 lb 4 oz BMI 40.8 BP 210/93 H 169/81 H Blood Pressure Location Lt brachial Rt brachial Position Sitting Sitting Respiration 20 Pulse 64 Pulse Source Pulse Oximeter Pulse Oximetry (%) 99 Oxygen Delivery Method Room Air Intake Visit Reasons: Pill Count - Confirmed Allergies ibuprofen [IBUPROFEN] Allergy (Mild, Verified 01/11/24 13:09) RASH, hives, hives HPI HPI Comments History of Present Illness Details Nydia is a pleasant 58 year old female who presents to the office today for follow up chronic pain and chronic opioid therapy management. Patient is prescribed oxycodone 5mg tabs, take one tablet by mouth twice daily as needed for pain. Patient arrived today with the expectation of having 3 pills, she presented 20 pills. This demonstrates responsible attitude toward patient's opioid medications. Pain is reported today as 5/10 and last dose of pain medication was taken at 10am today. Patient denies side effects including somnolence, constipation, itching, dyspnea, rash, dizziness or weakness. Continues with pain to the left hip, underwent intra-articular steroid injection 1 week ago. Today she reports no improvement in her pain since the procedure. She has not been evaluated by Orthopedics. ? ? 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 Sacroiliitis Asthma WENDY (obstructive sleep apnea) Morbid obesity Swelling of both lower extremities Afib Disc degeneration, lumbar Cervical pain (neck) Calcaneal spur Benign neoplasm breast skin Bursitis, shoulder Xanthelasma Auditory hallucinations Impaired glucose tolerance Hyperlipidemia Anxiety Depression Adenomatous polyp of colon Esophagitis Hypertensive urgency PAF (paroxysmal atrial fibrillation) Palpitations HTN (hypertension) Dyspepsia GERD (gastroesophageal reflux disease) Surgical History Hx of colonoscopy H/O esophagogastroduodenoscopy (09/01/15) Status post Margarita fundoplication (10/27/12) History of removal of cyst Hx of cholecystectomy History of hysterectomy Family History Father CVD (cardiovascular disease) HTN (hypertension) Diabetes Mother HTN (hypertension) Diabetes CVD (cardiovascular disease) Brother Pacemaker Maternal Grandmother Throat cancer Brother No problems noted. Daughter Hx LEEP (loop electrosurgical excision procedure), cervix, Other Mental health disorder Substance use disorder Social History Household Members: None Housing: House Are you a primary child care attendant to a significant other at home: No Alcohol intake: never Patient Tobacco Use Status: Never used Tobacco e-Cigarette/Vaping Use: Never Used Second Hand Smoke Exposure: No Advance Directives Date on File: 03/16/21 Current occupational status: disabled Sexual orientation: Straight/Heterosexual Gender identity: Female Cognitive needs: No Hearing needs: No Vision needs: No Review of Systems Const All systems reviewed & are unremarkable except as noted in HPI and below Physical Exam Vital Signs: Last Vital Signs Pulse 64 01/11/24 13:10 Resp 20 01/11/24 13:10 BP 210/93 H 01/11/24 13:10 Pulse Ox 99 01/11/24 13:10 Oxygen Delivery Method Room Air 01/11/24 13:10 BMI result Body Mass Index 40.8 General: awake, alert, oriented. Answers questions appropriately. Fully engaged in examination. Skin: warm, dry, intact HEENT: Normocephalic. Hearing intact. Cardiac: External chest normal in appearance. Respiratory: No cough, audible wheezing or stridor. Abdomen: without gross distension. MS: Pain with internal external rotation of the left hip. Neurological: Oriented to person, place, time and situation. Thought process intact. Psychiatric: Appropriate mood and affect. Good judgment and insight. Results Reviewed Results Reviewed: 07/26/23 XR HIP, LEFT CLINICAL INFORMATION: Primary osteoarthritis. FINDINGS: No fracture. Alignment is anatomic. Hip joint space is maintained. Soft tissues are unremarkable. A left tubal ligation clip is noted. IMPRESSION: Normal left hip. Assessment & Plan Assessment & Plan (1) Left hip pain: Code(s): M25.552 - Pain in left hip (2) Neuropathy: Comment: bilateral feet Code(s): G62.9 - Polyneuropathy, unspecified (3) Osteoarthritis of left hip: Code(s): M16.12 - Unilateral primary osteoarthritis, left hip (4) Arthritis of left knee: Code(s): M17.12 - Unilateral primary osteoarthritis, left knee Plan Masspat was reviewed and without concerns, pill count without concerns. No obvious signs of diversion, abuse or misuse of the opioid medication. Oxycodone 5mg PO BID PRN send today with advanced date of 01/19/2024 Referral placed for Orthopedics for evaluation management of her left hip pain given no improvement after recent steroid injection. Patient to follow-up in the office in 1 month, sooner if needed. All questions and concerns have been answered and patient agrees with the plan. Orders: Referrals Orthopedics Referral M25.552 - Pain in left hip Medications: Refilled oxycodone 5 mg PO BID 30 days PRN 45 tabs 0RF pain M46.1 - Sacroiliitis, not elsewhere classified, M54.30 - Sciatica, unspecified side Coding Level of Care Code Est Pt Level 4 (66217) Diagnoses Left hip pain M25.552 Neuropathy G62.9 Osteoarthritis of left hip M16.12 Arthritis of left knee M17.12
[2024-01-11 13:20] VITALS: BP 169/81
== END 2024-01-11 13:21 | disposition home or self-care (01) ==
PROVIDERS: PCP Nurse Practitioner Family; Visit Provider Registered Nurse Emergency
DX: M25.552 Pain in left hip (principal); G62.9 Polyneuropathy, unspecified; M16.12 Unilateral primary osteoarthritis, left hip; M17.12 Unilateral primary osteoarthritis, left knee
CPT/HCPCS: 99214

== ENCOUNTER → 2024-01-11 12:54 | Outpatient (BNVA) | payer OTHER, SELFPAY | PROVIDERS: PCP Nurse Practitioner Family; Visit Provider Registered Nurse Emergency | DX: Z51.81 Encounter for therapeutic drug level monitoring (principal); F11.20 Opioid dependence, uncomplicated; M25.552 Pain in left hip; M16.12 Unilateral primary osteoarthritis, left hip; M17.12 Unilateral primary osteoarthritis, left knee; G62.9 Polyneuropathy, unspecified | CPT/HCPCS: 99212 ==

== ENCOUNTER 2024-01-27 11:40 | Outpatient (REF) | payer OTHER, SELFPAY ==
--- NOTE | ~2024-01-27 | XR_ITS ---
EXAMINATION: XR PELVIS CLINICAL INFORMATION: Pain in unspecified hip COMPARISON: None available. TECHNIQUE: AP view of the pelvis. FINDINGS: No fracture. Hip joint spaces are maintained. Alignment is anatomic. Sacroiliac joints are normal. There are mild degenerative changes of the pubic symphysis. Small calcific density adjacent to the greater trochanter of the left femur can be seen with gluteal tendinosis. There are degenerative changes in the lower lumbar spine. Small calcification in the pelvic pelvis is consistent with a phlebolith. Question of small fallopian tube clips bilaterally in the pelvis. XR/XR pelvis 1-2V IMPRESSION: 1. No significant abnormality of the hips joints. 2. Calcific density adjacent to the greater trochanter of the left femur can be seen with gluteal tendinosis.
== END 2024-01-27 11:41 | disposition home or self-care (01) ==
LOC: HO.HOSX 11:40
PROVIDERS: PCP Nurse Practitioner Family; Visit Provider Orthopaedic Surgery
DX: M25.551 Pain in right hip (principal); M25.552 Pain in left hip
CPT/HCPCS: 72170; 99212

== ENCOUNTER 2024-01-27 11:40 | Outpatient (AMB) | payer OTHER, SELFPAY ==
--- NOTE | 2024-01-27 12:01 | A.OFFVIS_ITS ---
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 She was recently seen with Pain Mgmt and given an injection on 11/02/2024. She is on a pain contract with them for Oxycodone 5mg BID. Patient reports this injection was only helpful for about 3 days and only mildly. Her pain localizes to the left greater trochanter. 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 Sacroiliitis Asthma WENDY (obstructive sleep apnea) Morbid obesity Swelling of both lower extremities Afib Disc degeneration, lumbar Cervical pain (neck) Calcaneal spur Benign neoplasm breast skin Bursitis, shoulder Xanthelasma Auditory hallucinations Impaired glucose tolerance Hyperlipidemia Anxiety Depression Adenomatous polyp of colon Esophagitis Hypertensive urgency PAF (paroxysmal atrial fibrillation) Palpitations HTN (hypertension) Dyspepsia GERD (gastroesophageal reflux disease) Surgical History Hx of colonoscopy H/O esophagogastroduodenoscopy (09/01/15) Status post Margarita fundoplication (10/27/12) History of removal of cyst Hx of cholecystectomy History of hysterectomy Family History Father CVD (cardiovascular disease) HTN (hypertension) Diabetes Mother HTN (hypertension) Diabetes CVD (cardiovascular disease) Brother Pacemaker Maternal Grandmother Throat cancer Brother No problems noted. Daughter Hx LEEP (loop electrosurgical excision procedure), cervix, Other Mental health disorder Substance use disorder Social History Household Members: None Housing: House Are you a primary vision care associate to a significant other at home: No Alcohol intake: never Patient Tobacco Use Status: Never used Tobacco e-Cigarette/Vaping Use: Never Used Second Hand Smoke Exposure: No Advance Directives Date on File: 03/16/21 Current occupational status: disabled Sexual orientation: Straight/Heterosexual Gender identity: Female Cognitive needs: No Hearing needs: No Vision needs: No Physical Exam Extrem Other: No groin pain with impingement testing. TTP over the left greater trochanter- This reproduces her primary complaint Results Reviewed Results Reviewed: I personally reviewed relevant radiographs. Mild hip OA Assessment & Plan Assessment & Plan (1) Greater trochanteric bursitis of left hip: Code(s): M70.62 - Trochanteric bursitis, left hip Plan: No indication for hip arthroplasty. I recommend PT Orders: Orders XR pelvis 1-2V Today M25.559 - Pain in unspecified hip Coding Level of Care Code Est Pt Level 3 (23862) Diagnoses Greater trochanteric bursitis of left hip M70.62
== END 2024-01-27 12:57 | disposition home or self-care (01) ==
PROVIDERS: PCP Nurse Practitioner Family; Visit Provider Orthopaedic Surgery
DX: M70.62 Trochanteric bursitis, left hip (principal)
CPT/HCPCS: 99213

== ENCOUNTER 2024-02-01 10:35 | Outpatient (AMB) | payer OTHER, SELFPAY ==
[2024-02-01 11:06] VITALS: BP 190/85; PULSE 74; RESP 16; O2SAT 97; BMI 39.3
--- NOTE | 2024-02-01 11:06 | A.OFFVIS_ITS ---
Intake Vital Signs 02/01/24 11:06 Height 5 ft 2 in Weight 215 lb 2 oz BMI 39.3 BP 190/85 H Blood Pressure Location Lt brachial Position Sitting Respiration 16 Pulse 74 Pulse Source Pulse Oximeter Pulse Oximetry (%) 97 Oxygen Delivery Method Room Air Intake Visit Reasons: pill count/ random UDS Allergies ibuprofen [IBUPROFEN] Allergy (Mild, Verified 02/01/24 11:07) RASH, hives, hives HPI HPI Comments History of Present Illness Details Nydia is a pleasant 58 year old female who presents to the office today for follow up chronic pain and chronic opioid therapy management. Patient is prescribed oxycodone 5mg tabs, take one tablet by mouth twice daily as needed for pain. Patient arrived today with the expectation of having 29 pills, she presented 38 pills. This demonstrates responsible attitude toward patient's opioid medications. Pain is reported today as 5/10 and last dose of pain medication was taken at 9am today. Patient denies side effects including somnolence, constipation, itching, dyspnea, rash, dizziness or weakness. Patient reports 50% improvement in her hip pain after recent injection. ? ? 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 Sacroiliitis Asthma WENDY (obstructive sleep apnea) Morbid obesity Swelling of both lower extremities Afib Disc degeneration, lumbar Cervical pain (neck) Calcaneal spur Benign neoplasm breast skin Bursitis, shoulder Xanthelasma Auditory hallucinations Impaired glucose tolerance Hyperlipidemia Anxiety Depression Adenomatous polyp of colon Esophagitis Hypertensive urgency PAF (paroxysmal atrial fibrillation) Palpitations HTN (hypertension) Dyspepsia GERD (gastroesophageal reflux disease) Surgical History Hx of colonoscopy H/O esophagogastroduodenoscopy (09/01/15) Status post Margarita fundoplication (10/27/12) History of removal of cyst Hx of cholecystectomy History of hysterectomy Family History Father CVD (cardiovascular disease) HTN (hypertension) Diabetes Mother HTN (hypertension) Diabetes CVD (cardiovascular disease) Brother Pacemaker Maternal Grandmother Throat cancer Brother No problems noted. Daughter Hx LEEP (loop electrosurgical excision procedure), cervix, Other Mental health disorder Substance use disorder Social History Household Members: None Housing: House Are you a primary medication care manager to a significant other at home: No Alcohol intake: never Patient Tobacco Use Status: Never used Tobacco e-Cigarette/Vaping Use: Never Used Second Hand Smoke Exposure: No Advance Directives Date on File: 03/16/21 Current occupational status: disabled Sexual orientation: Straight/Heterosexual Gender identity: Female Cognitive needs: No Hearing needs: No Vision needs: No Review of Systems Const All systems reviewed & are unremarkable except as noted in HPI and below Physical Exam Vital Signs: Last Vital Signs Pulse 74 02/01/24 11:06 Resp 16 02/01/24 11:06 BP 190/85 H 02/01/24 11:06 Pulse Ox 97 02/01/24 11:06 Oxygen Delivery Method Room Air 02/01/24 11:06 BMI result Body Mass Index 39.3 General: awake, alert, oriented. Answers questions appropriately. Fully engaged in examination. Skin: warm, dry, intact HEENT: Normocephalic. Hearing intact. Cardiac: External chest normal in appearance. Respiratory: No cough, audible wheezing or stridor. Abdomen: without gross distension. MS: Pain with internal external rotation of the left hip. Neurological: Oriented to person, place, time and situation. Thought process intact. Psychiatric: Appropriate mood and affect. Good judgment and insight. Results Reviewed Results Reviewed: 07/26/23 XR HIP, LEFT CLINICAL INFORMATION: Primary osteoarthritis. FINDINGS: No fracture. Alignment is anatomic. Hip joint space is maintained. Soft tissues are unremarkable. A left tubal ligation clip is noted. IMPRESSION: Normal left hip. Assessment & Plan Assessment & Plan (1) Left hip pain: Code(s): M25.552 - Pain in left hip (2) Neuropathy: Comment: bilateral feet Code(s): G62.9 - Polyneuropathy, unspecified (3) Osteoarthritis of left hip: Code(s): M16.12 - Unilateral primary osteoarthritis, left hip (4) Arthritis of left knee: Code(s): M17.12 - Unilateral primary osteoarthritis, left knee Plan Masspat was reviewed and without concerns, pill count without concerns. No obvious signs of diversion, abuse or misuse of the opioid medication. Oxycodone 5mg PO BID PRN send today with advanced date of 02/26/24 Patient to follow-up in the office in 1 month, sooner if needed. All questions and concerns have been answered and patient agrees with the plan. Medications: Refilled oxycodone 5 mg PO BID PRN 45 tabs 0RF pain 30 days M46.1 - Sacroiliitis, not elsewhere classified, M54.30 - Sciatica, unspecified side Coding Level of Care Code Est Pt Level 4 (34409) Diagnoses Left hip pain M25.552 Neuropathy G62.9 Osteoarthritis of left hip M16.12 Arthritis of left knee M17.12
== END 2024-02-01 11:10 | disposition home or self-care (01) ==
PROVIDERS: PCP Nurse Practitioner Family; Visit Provider Registered Nurse Emergency
DX: M25.552 Pain in left hip (principal); G62.9 Polyneuropathy, unspecified; M16.12 Unilateral primary osteoarthritis, left hip; M17.12 Unilateral primary osteoarthritis, left knee
CPT/HCPCS: 99214

== ENCOUNTER → 2024-02-01 10:35 | Outpatient (BNVA) | payer OTHER, SELFPAY | PROVIDERS: PCP Nurse Practitioner Family; Visit Provider Registered Nurse Emergency | DX: M16.12 Unilateral primary osteoarthritis, left hip (principal); M17.12 Unilateral primary osteoarthritis, left knee; G62.9 Polyneuropathy, unspecified; Z79.891 Long term (current) use of opiate analgesic | CPT/HCPCS: 99212 ==

== ENCOUNTER 2024-02-02 10:43 | Outpatient (RCR) | payer OTHER, SELFPAY ==
[2024-02-02 11:04] VITALS: BP 180/83; PULSE 81
--- NOTE | 2024-02-02 11:46 | MHC.PT.EP ---
[facility] [place] [facility] [place] Office [place] Office [address] [phone] F: [phone] F: [phone] F: [phone] F: [phone] Physical Therapy Plan of Care Date of Evaluation: 02/02/24 Date of Surgery: NA Diagnosis: Trochanteric bursitis, L hip Assessment: Nydia is a 58 year old female who is referred to PT for Trochanteric bursitis, L hip . She reports of having sudden onset of pain on L side of her for about 2 months. She denies any trauma or falls. On PT examination she presented with 6-8/10 pain on the lateral aspect of L with standing and walking, TTP along lateral aspect of L hip, L GT and L IT band, decreased L hip ROM, decreased L hip and knee strength, altered posture, GT and balance. She lives alone but has a COPS to assist her with all ADLS. She is unemployed. She would benefit from skilled PT to address the aforementioned impairments and improve tolerance to functional activities. Frequency and Duration: The patient will be seen 2/week for 5 weeks. Short Term Goals: 1. Pt will have 50% decrease in pain which will enable her to sleep through the night in 2 weeks. 2. Pt will be able to move her L hip through all planes of motion without pain which will enable her to negotiate stairs without any restrictions from L hip in 3 weeks. Shelter Goals: 1. Pt will demonstrate an increase in muscle strength by 1 grade which will enable her to tolerate standing and walking with a pain no more than 2/10 in 5 weeks. 2. Pt will be independent with all HEP for symptom management and maintenance following d/c in 5 weeks. Treatment Plan: Modalities to reduce pain, spasms and effusion. Manual therapy to restore motion and function. Therapeutic exercise to improve strength and flexibility. Neuromuscular re-education for posture and balance. Therapeutic activities to return to functional activities of daily living. Electronically signed by: Yasmin Reyes PT DPT Please sign and return to therapist. Thank you for your referral.
--- NOTE | 2024-02-10 13:31 | MHC.PT.DC ---
[facility] [place] Office [place] Office [place] Office [address]arshil Villegas [address] [phone] F: [phone] F: [phone] F: [phone] F: [phone] Physical Therapy Discharge Report Diagnosis: Trochanteric bursitis, L hip Date of Surgery: NA Date of Evaluation: 02/02/24 Date of Discharge: 02/10/24 Treatments to Date: 1 Cancellations to Date: 0 No Shows to Date: 2 Discharge Status: Visit Non-compliance Discharge Summary: Nydia no showed for 2 appointments after her evaluation. She is therefore being d/c from PT for non compliance per our attendance policy. Electronically signed by: Yasmin Reyes PT DPT Please sign and return to therapist. Thank you for your referral.
== END 2024-02-10 13:32 | disposition home or self-care (01) ==
LOC: HO.PT 10:43
PROVIDERS: PCP Nurse Practitioner Family; Visit Provider Orthopaedic Surgery
DX: M70.62 Trochanteric bursitis, left hip (principal)
CPT/HCPCS: 97110; 97161

== ENCOUNTER → 2024-02-20 14:09 | Outpatient (BNVA) | payer OTHER, SELFPAY | PROVIDERS: PCP Nurse Practitioner Family; Visit Provider Nurse Practitioner Family | DX: G47.30 Sleep apnea, unspecified (principal) | CPT/HCPCS: 99212 ==

== ENCOUNTER 2024-02-20 14:13 | Outpatient (AMB) | payer OTHER, SELFPAY ==
--- NOTE | 2024-02-20 14:17 | A.OFFVIS_ITS ---
Intake Vital Signs 02/20/24 14:26 Height 5 ft 2 in Weight 222 lb 6 oz BMI 40.7 BP 134/80 Blood Pressure Location Lt brachial Position Sitting Pulse 64 Pulse Source Pulse Oximeter Pulse Oximetry (%) 98 Oxygen Delivery Method Room Air Intake Visit Reasons: 4 mo f/u - WENDY-Conf Intake Note: Patient presents for 4 month F/U. Just got her CPAP machine today Allergies ibuprofen [IBUPROFEN] Allergy (Mild, Verified 02/20/24 14:24) RASH, hives, hives HPI HPI Comments History of Present Illness Details 58 y/o female patient with hx of asthma and Afib presents with her daughter for follow up of sleep study. Pt underwent PSG sleep study and titration study. The sleep study result was significant for mild degree of sleep apnea with increased severity in REM sleep. The AHI was 7/hr, REM AHI was 30/hr and oxygen marge was 83%. Pt's breathing and oxygenation stabilized with CPAP at [id number]. CPAP at [id number] ordered. She reports shortness of breath with any activity, including washing dishes she gets sob. Pt's sleep schedule is 2-3 am to 9 :30 am. Pt continues to endorse non refreshing sleep with daytime sleepiness. Pt reports that she had received the CPAP this morning. 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 Sacroiliitis Asthma WENDY (obstructive sleep apnea) Morbid obesity Swelling of both lower extremities Afib Disc degeneration, lumbar Cervical pain (neck) Calcaneal spur Benign neoplasm breast skin Bursitis, shoulder Xanthelasma Auditory hallucinations Impaired glucose tolerance Hyperlipidemia Anxiety Depression Adenomatous polyp of colon Esophagitis Hypertensive urgency PAF (paroxysmal atrial fibrillation) Palpitations HTN (hypertension) Dyspepsia GERD (gastroesophageal reflux disease) Surgical History Hx of colonoscopy H/O esophagogastroduodenoscopy (09/01/15) Status post Margarita fundoplication (10/27/12) History of removal of cyst Hx of cholecystectomy History of hysterectomy Family History Father CVD (cardiovascular disease) HTN (hypertension) Diabetes Mother HTN (hypertension) Diabetes CVD (cardiovascular disease) Brother Pacemaker Maternal Grandmother Throat cancer Brother No problems noted. Daughter Hx LEEP (loop electrosurgical excision procedure), cervix, Other Mental health disorder Substance use disorder Social History Household Members: None Housing: House Are you a primary ambulatory care nurse to a significant other at home: No Alcohol intake: never Patient Tobacco Use Status: Never used Tobacco e-Cigarette/Vaping Use: Never Used Second Hand Smoke Exposure: No Advance Directives Date on File: 03/16/21 Current occupational status: disabled Sexual orientation: Straight/Heterosexual Gender identity: Female Cognitive needs: No Hearing needs: No Vision needs: No Review of Systems Const All systems reviewed & are unremarkable except as noted in HPI and below ENT Reports Normal hearing present Neuro Reports Normal hearing present Physical Exam Vital Signs: Last Vital Signs Pulse 64 02/20/24 14:26 BP 134/80 02/20/24 14:26 Pulse Ox 98 02/20/24 14:26 Oxygen Delivery Method Room Air 02/20/24 14:26 BMI result Body Mass Index 40.7 Const General: no acute distress Nutritional Appearance: obese Orientation/consciousness: patient oriented x3 Limitations: ambulation with cane Resp Effort & Inspection: normal respiratory effort and able to speak in complete sentences Back/Spine/Pelvis Other: Antalgic gait on the right. Patient ambulates with cane. Neuro General: patient oriented x3 Cranial nerves: Yes Bilaterally intact EOM present, Yes Normal facial strength present, Yes Symmetric palate elevation present, Yes Normal hearing present, Yes Ability to bilaterally rotate head present and Yes Ability to bilaterally elevate shoulders present Cognition (Neuro): normal cognition Motor exam (neuro): 5/5 motor strength present throughout, Pronator motor function not present and no tremor noted Extrem Left lower extremity: hip/thigh Details: tenderness and abnormal ROM Details: pain with active ROM Details: with ADduction, with ABduction, with internal rotation and with external rotation Psych Appearance: well kempt Mental Status: mental status grossly normal Affect: normal affect Attitude: cooperative Thought process: Normal thought process present Thought content: Normal thought content present Insight: Good insight present (Psych) Judgement: Good judgement present (Psych) Assessment & Plan Assessment & Plan (1) Sleep apnea: Comment: Mild degree of sleep apnea with increased severity in REM. The AHI was 7/hr, REM AHI was 30/hr and oxygen marge was 83% Code(s): G47.30 - Sleep apnea, unspecified Plan Start CPAP at [id number]. Stressed CPAP compliance, use CPAP nightly and more than 4 hrs. Sleep hygiene education provided and wt reduction advised. Coding Level of Care Code Est Pt Level 3 (61467) Diagnoses Sleep apnea G47.30
[2024-02-20 14:26] VITALS: BP 134/80; PULSE 64; O2SAT 98; BMI 40.7
== END 2024-02-20 14:34 | disposition home or self-care (01) ==
PROVIDERS: PCP Nurse Practitioner Family; Visit Provider Nurse Practitioner Family
DX: G47.30 Sleep apnea, unspecified (principal)
CPT/HCPCS: 99213

== ENCOUNTER 2024-02-29 11:04 | Outpatient (AMB) | payer OTHER, SELFPAY ==
[2024-02-29 11:15] VITALS: BP 167/81; PULSE 78; RESP 18; O2SAT 99; BMI 40.2
--- NOTE | 2024-02-29 11:15 | A.OFFVIS_ITS ---
Intake Vital Signs 02/29/24 11:15 Height 5 ft 2 in Weight 220 lb BMI 40.2 BP 167/81 H Blood Pressure Location Lt brachial Position Sitting Respiration 18 Pulse 78 Pulse Source Pulse Oximeter Pulse Oximetry (%) 99 Oxygen Delivery Method Room Air Intake Visit Reasons: PILL COUNT Allergies ibuprofen [IBUPROFEN] Allergy (Mild, Verified 02/29/24 11:15) RASH, hives, hives HPI HPI Comments History of Present Illness Details Nydia is a very pleasant 58 year old female who presents to the office today for follow up chronic pain and chronic opioid therapy management. Patient is prescribed oxycodone 5mg tabs, take one tablet by mouth twice daily as needed for pain. Patient arrived today with the expectation of having 43 pills, she presented 43 pills. This demonstrates responsible attitude toward patient's opioid medications. Pain is reported today as 5/10 and last dose of pain medication was taken yesterday at 6pm. Patient denies side effects including somnolence, constipation, itching, dyspnea, rash, dizziness or weakness. She reports recently suffering with left knee pain, she was evaluated by Orthopedics and has started physical therapy. She reports PT makes the pain worse. ? ? 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 Sacroiliitis Asthma WENDY (obstructive sleep apnea) Morbid obesity Swelling of both lower extremities Afib Disc degeneration, lumbar Cervical pain (neck) Calcaneal spur Benign neoplasm breast skin Bursitis, shoulder Xanthelasma Auditory hallucinations Impaired glucose tolerance Hyperlipidemia Anxiety Depression Adenomatous polyp of colon Esophagitis Hypertensive urgency PAF (paroxysmal atrial fibrillation) Palpitations HTN (hypertension) Dyspepsia GERD (gastroesophageal reflux disease) Surgical History Hx of colonoscopy H/O esophagogastroduodenoscopy (09/01/15) Status post Margarita fundoplication (10/27/12) History of removal of cyst Hx of cholecystectomy History of hysterectomy Family History Father CVD (cardiovascular disease) HTN (hypertension) Diabetes Mother HTN (hypertension) Diabetes CVD (cardiovascular disease) Brother Pacemaker Maternal Grandmother Throat cancer Brother No problems noted. Daughter Hx LEEP (loop electrosurgical excision procedure), cervix, Other Mental health disorder Substance use disorder Social History Household Members: None Housing: House Are you a primary career based intervention coordinator to a significant other at home: No Alcohol intake: never Patient Tobacco Use Status: Never used Tobacco e-Cigarette/Vaping Use: Never Used Second Hand Smoke Exposure: No Advance Directives Date on File: 03/16/21 Current occupational status: disabled Sexual orientation: Straight/Heterosexual Gender identity: Female Cognitive needs: No Hearing needs: No Vision needs: No Review of Systems Const All systems reviewed & are unremarkable except as noted in HPI and below Physical Exam Vital Signs: Last Vital Signs Pulse 78 02/29/24 11:15 Resp 18 02/29/24 11:15 BP 167/81 H 02/29/24 11:15 Pulse Ox 99 02/29/24 11:15 Oxygen Delivery Method Room Air 02/29/24 11:15 BMI result Body Mass Index 40.2 General: awake, alert, oriented. Answers questions appropriately. Fully engaged in examination. Skin: warm, dry, intact HEENT: Normocephalic. Hearing intact. Cardiac: External chest normal in appearance. Respiratory: No cough, audible wheezing or stridor. Abdomen: without gross distension. MS: Pain with flexion/extension of the left knee Neurological: Oriented to person, place, time and situation. Thought process intact. Psychiatric: Appropriate mood and affect. Good judgment and insight. Assessment & Plan Assessment & Plan (1) Left hip pain: Code(s): M25.552 - Pain in left hip (2) Neuropathy: Comment: bilateral feet Code(s): G62.9 - Polyneuropathy, unspecified (3) Osteoarthritis of left hip: Code(s): M16.12 - Unilateral primary osteoarthritis, left hip (4) Arthritis of left knee: Code(s): M17.12 - Unilateral primary osteoarthritis, left knee Plan Masspat was reviewed and without concerns, pill count without concerns. No obvious signs of diversion, abuse or misuse of the opioid medication. Oxycodone 5mg PO BID PRN send today with advanced date of 03/29/24 Patient to follow-up in the office in 1 month, sooner if needed. All questions and concerns have been answered and patient agrees with the plan. Medications: Refilled oxycodone 5 mg PO BID PRN 45 tabs 0RF pain 30 days M46.1 - Sacroiliitis, not elsewhere classified, M54.30 - Sciatica, unspecified side Coding Level of Care Code Est Pt Level 4 (98173) Diagnoses Left hip pain M25.552 Neuropathy G62.9 Osteoarthritis of left hip M16.12 Arthritis of left knee M17.12
== END 2024-02-29 11:23 | disposition home or self-care (01) ==
PROVIDERS: PCP Nurse Practitioner Family; Visit Provider Registered Nurse Emergency
DX: G62.9 Polyneuropathy, unspecified (principal); M25.552 Pain in left hip; M16.12 Unilateral primary osteoarthritis, left hip; M17.12 Unilateral primary osteoarthritis, left knee
CPT/HCPCS: 99214

== ENCOUNTER → 2024-02-29 11:04 | Outpatient (BNVA) | payer OTHER, SELFPAY | PROVIDERS: PCP Nurse Practitioner Family; Visit Provider Registered Nurse Emergency | DX: M16.12 Unilateral primary osteoarthritis, left hip (principal); M17.12 Unilateral primary osteoarthritis, left knee; M25.552 Pain in left hip; G89.29 Other chronic pain; G62.9 Polyneuropathy, unspecified; Z79.891 Long term (current) use of opiate analgesic | CPT/HCPCS: 99212 ==

== ENCOUNTER 2024-03-28 11:06 | Outpatient (AMB) | payer OTHER, SELFPAY ==
[2024-03-28 11:18] VITALS: BP 162/75; PULSE 76; RESP 16; O2SAT 100; BMI 40.0
--- NOTE | 2024-03-28 11:18 | MHC.OFFVIS ---
Vital Signs 03/28/24 11:18 Height 5 ft 2 in Weight 218 lb 8 oz BMI 40.0 BP 162/75 H Blood Pressure Location Lt brachial Position Sitting Respiration 16 Pulse 76 Pulse Source Pulse Oximeter Pulse Oximetry (%) 100 Oxygen Delivery Method Room Air Intake Visit Reasons: PILL COUNT Allergies ibuprofen [IBUPROFEN] Allergy (Mild, Verified 02/29/24 11:15) RASH, hives, hives HPI Comments Details: Nydia is a very pleasant 58 year old female who presents to the office today for follow up chronic pain and chronic opioid therapy management. Patient is prescribed oxycodone 5mg tabs, take one tablet by mouth twice daily as needed for pain. Patient arrived today with the expectation of having 0 pills, she presented 0 pills. This demonstrates responsible attitude toward patient's opioid medications. Pain is reported today as 10 and last dose of pain medication was taken 03/25/24. Patient denies side effects including somnolence, constipation, itching, dyspnea, rash, dizziness or weakness. She reports recently suffering with left knee pain, she was evaluated by Orthopedics. Physical therapy made the pain worse, she has a follow-up appointment in 1 week with orthopedics for further evaluation. Patient attempted to take a walk with her family recently, states that the pain in her left leg became severe and the family had to come and pick her up in the car. Most days she is taking 2 tablets oxycodone 5 mg daily as prescribed. She was hoping now that the weather is better she would be able to be more active but the pain is significantly limiting her activity. ? ? 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 Sacroiliitis Asthma WENDY (obstructive sleep apnea) Morbid obesity Swelling of both lower extremities Afib Disc degeneration, lumbar Cervical pain (neck) Calcaneal spur Benign neoplasm breast skin Bursitis, shoulder Xanthelasma Auditory hallucinations Impaired glucose tolerance Hyperlipidemia Anxiety Depression Adenomatous polyp of colon Esophagitis Hypertensive urgency PAF (paroxysmal atrial fibrillation) Palpitations HTN (hypertension) Dyspepsia GERD (gastroesophageal reflux disease) Surgical History Hx of colonoscopy H/O esophagogastroduodenoscopy (09/01/15) Status post Margarita fundoplication (10/27/12) History of removal of cyst Hx of cholecystectomy History of hysterectomy Family History Father CVD (cardiovascular disease) HTN (hypertension) Diabetes Mother HTN (hypertension) Diabetes CVD (cardiovascular disease) Brother Pacemaker Maternal Grandmother Throat cancer Brother No problems noted. Daughter Hx LEEP (loop electrosurgical excision procedure), cervix, Other Mental health disorder Substance use disorder Social History Household Members: None Housing: House Are you a primary veterinarian laboratory animal care to a significant other at home: No Alcohol intake: never Patient Tobacco Use Status: Never used Tobacco e-Cigarette/Vaping Use: Never Used Second Hand Smoke Exposure: No Advance Directives Date on File: 03/16/21 Current occupational status: disabled Sexual orientation: Straight/Heterosexual Gender identity: Female Cognitive needs: No Hearing needs: No Vision needs: No Review of Systems Const All systems reviewed & are unremarkable except as noted in HPI and below Physical Exam Vital Signs: Last Vital Signs Pulse 76 03/28/24 11:18 Resp 16 03/28/24 11:18 BP 162/75 H 03/28/24 11:18 Pulse Ox 100 03/28/24 11:18 Oxygen Delivery Method Room Air 03/28/24 11:18 BMI result Body Mass Index 40.0 General: awake, alert, oriented. Answers questions appropriately. Fully engaged in examination. Skin: warm, dry, intact HEENT: Normocephalic. Hearing intact. Cardiac: External chest normal in appearance. Respiratory: No cough, audible wheezing or stridor. Abdomen: without gross distension. MS: Pain with flexion/extension of the left knee. Tenderness left PSIS Neurological: Oriented to person, place, time and situation. Thought process intact. Psychiatric: Appropriate mood and affect. Good judgment and insight. Results Reviewed Results Reviewed: 07/26/23 XR HIP, LEFT CLINICAL INFORMATION: Primary osteoarthritis. FINDINGS: No fracture. Alignment is anatomic. Hip joint space is maintained. Soft tissues are unremarkable. A left tubal ligation clip is noted. IMPRESSION: Normal left hip. Assessment & Plan Assessment & Plan (1) Left hip pain: Code(s): M25.552 - Pain in left hip Category: Medical (2) Neuropathy: Comment: bilateral feet Code(s): G62.9 - Polyneuropathy, unspecified Category: Medical (3) Osteoarthritis of left hip: Code(s): M16.12 - Unilateral primary osteoarthritis, left hip Category: Medical (4) Arthritis of left knee: Code(s): M17.12 - Unilateral primary osteoarthritis, left knee Category: Medical Plan Masspat was reviewed and without concerns, pill count without concerns. No obvious signs of diversion, abuse or misuse of the opioid medication. Pain is negatively impacting patient's enjoyment of life and recreational activities. She was not able to take a walk with her family without being in severe pain. Oxycodone 5mg PO BID PRN, will increase from #45tabs per month to #60tabs per month to improve her quality of life. Patient was advised on cautions for use. She is aware that there is not a penalty for excess pills at each pill count and to take the medication only as needed. Follow-up with orthopedics in 1 week as planned for left knee Patient to follow-up in the office in 1 month, sooner if needed. All questions and concerns have been answered and patient agrees with the plan. Medications: Refilled oxycodone 5 mg PO BID PRN 60 tabs 0RF pain 30 days M46.1 - Sacroiliitis, not elsewhere classified, M54.30 - Sciatica, unspecified side Coding Level of Care Code Est Pt Level 4 (41628) Diagnoses Left hip pain M25.552 Neuropathy G62.9 Osteoarthritis of left hip M16.12 Arthritis of left knee M17.12
== END 2024-03-28 11:26 | disposition home or self-care (01) ==
PROVIDERS: PCP Nurse Practitioner Family; Visit Provider Registered Nurse Emergency
DX: M25.552 Pain in left hip (principal); G62.9 Polyneuropathy, unspecified; M16.12 Unilateral primary osteoarthritis, left hip; M17.12 Unilateral primary osteoarthritis, left knee
CPT/HCPCS: 99214

== ENCOUNTER → 2024-03-28 11:06 | Outpatient (BNVA) | payer OTHER, SELFPAY | PROVIDERS: PCP Nurse Practitioner Family; Visit Provider Registered Nurse Emergency | DX: Z51.81 Encounter for therapeutic drug level monitoring (principal); F11.20 Opioid dependence, uncomplicated; M25.552 Pain in left hip; M16.12 Unilateral primary osteoarthritis, left hip; M17.12 Unilateral primary osteoarthritis, left knee; G62.9 Polyneuropathy, unspecified | CPT/HCPCS: 99212 ==

== ENCOUNTER 2024-04-03 11:09 | Emergency (ER) | payer OTHER, SELFPAY ==
--- NOTE | ~2024-04-03 | XR_ITS ---
EXAMINATION: XR CHEST CLINICAL INFORMATION: Shortness of breath COMPARISON: 08/18/2023 TECHNIQUE: 2 views of the chest were obtained. FINDINGS: No significant abnormality is noted involving the heart, lungs, mediastinum, bony thorax or soft tissues. Surgical clips are present in the right axilla. XR/XR chest 2V IMPRESSION: Unremarkable examination.
[2024-04-03 11:41] VITALS: BP 151/70; PULSE 87; RESP 19; TEMP 36.7; O2SAT 99; BMI 40.3
--- NOTE | 2024-04-03 11:48 | ECG_ITS ---
Test Reason : abd pain Blood Pressure : / mmHG Vent. Rate : 081 BPM Atrial Rate : 081 BPM P-R Int : 130 ms QRS Dur : 076 ms QT Int : 350 ms P-R-T Axes : 014 003 037 degrees QTc Int : 406 ms Normal sinus rhythm Normal ECG When compared with ECG of 01-JAN-2023 13:22, No significant change was found Referred By: Luis Olivera Electronically Signed By:MARLO LIZAMA MD
[2024-04-03 12:15] LABS: MANUAL DIFF FLAG NO
[2024-04-03 12:17] LABS: Basophils Percent Auto 0.6 % (0-2); Eosinophils Absolute Auto 0.2 X10*3/uL (0.0-0.4); Eosinophils Percent Auto 3.7 % (0-4); Imm Gran Abs Auto 0.02 X10*3/uL (0.00-0.03); Imm Gran Pct Auto 0.3 % (0.0-0.4); Mean Corpuscular HGB Conc 33.3 g/dl (31.0-35.0); Mean Corpuscular Hemoglobin 27.1 pg (27.0-33.0); Mean Corpuscular Volume 81.4 fL (80.0-98.0); Mean Platelet Volume 10.8 fL (9.4-12.3); Monocytes Absolute Auto 0.5 X10*3/uL (0.1-1.2); Monocytes Percent Auto 8.1 % (2-11); Neutrophils Absolute Auto 4.6 x10*3/uL (2.0-8.3); Neutrophils Percent Auto 72.3 % (45-73); Platelet Count 264 X10*3/uL (160-400); Red Blood Count 4.79 X10*6/uL (4.20-5.50); Red Cell Distribution Width 14.1 % (11.0-16.0); White Blood Count 6.4 X10*3/uL (4.8-10.8)
[2024-04-03 12:25] LABS: INTERNATIONAL NORM RATIO 1.2 (0.9-1.1); Prothrombin Time 14.1 SEC (11.1-13.3)
[2024-04-03 12:28] LABS: Partial Thromboplastin Time 37.5 SEC (26.0-36.8)
[2024-04-03 12:33] LABS: Alanine Aminotransferase 23 U/L (0-31); Alkaline Phosphatase 110 U/L (39-117); Anion Gap 14 (12-20); Aspartate Amino Transferase 20 U/L (5-31); Bilirubin Total 0.5 mg/dL (0.0-1.0); Blood Urea Nitrogen 15 mg/dL (9-16); Calcium 9.7 mg/dL (8.4-10.2); Carbon Dioxide 24 mmol/L (22-29); Chloride 108 mmol/L (96-108); Creatinine Clr Calc Pharmacy 54.2; Estimated Glomerular Filt Rate 45; Glucose Random 123 mg/dL (60-115); Potassium 4.4 mmol/L (3.3-5.1); Sodium 142 mmol/L (135-145); Total Protein 7.3 g/dL (6.5-8.0)
[2024-04-03 12:39] LABS: B Type Natriuretic Peptide 60 pg/mL (<100)
[2024-04-03 12:50] LABS: IDNOW Serial# 08D9AD1C; Strep A Nucleic Acid Negative (Negative)
[2024-04-03 13:04] LABS: Influenza A PCR NEGATIVE (Negative); Influenza B PCR NEGATIVE (Negative); Resp Syncy Virus RNA Qual PCR NEGATIVE (Negative); SARS COV2 PCR INHOUSE NEGATIVE (Negative)
--- NOTE | 2024-04-03 14:21 | ED_ITS ---
HPI - URI/Sore Throat General Chief Complaint: Upper Respiratory Symptoms Stated Complaint: asthma Time Seen by Provider: 04/03/24 14:16 Source: patient, RN notes reviewed and old records reviewed Mode of arrival: ambulatory Limitations: no limitations History of Present Illness HPI Narrative: 59-year-old female with past medical history significant for atrial fibrillation on Xarelto, asthma, depression, esophagitis, GERD, hypertension, hyperlipidemia, WENDY presents to the emergency department today for evaluation of productive cough, wheezing and mild shortness of breath worsening over the last 4 days. Admits cough is productive of yellow sputum. She has been using her albuterol inhaler more frequently. Admits symptoms began after she flew back from [place] 5 days ago. Denies fever, chills, sore throat, chest pain, palpitations, hemoptysis, nausea or vomiting, abdominal pain, calf pain/tenderness. Last asthma exacerbation 1 year ago. Related Data Home Medications ?Medication ?Instructions ?Recorded ?Confirmed aripiprazole 5 mg tablet 5 mg PO DAILY 08/23/20 10/20/23 buspirone 15 mg tablet 15 mg PO BID 08/23/20 10/20/23 spironolactone 25 mg tablet 25 mg PO BID 08/23/20 10/20/23 sertraline 100 mg tablet 100 mg PO DAILY 05/26/21 10/20/23 naloxone 4 mg/actuation nasal 4 mg intranasal Q2M PRN as directed 04/28/22 10/20/23 spray (Narcan) zolpidem 5 mg tablet 5 mg PO BEDTIME PRN Sleep 06/10/22 10/20/23 melatonin 3 mg tablet 3 mg PO QPM 07/18/23 10/20/23 melatonin 3 mg capsule 3 mg PO BEDTIME PRN 09/15/23 10/20/23 buspirone 30 mg tablet mg PO DAILY 12/14/23 carvedilol 25 mg tablet 25 mg PO BID 12/14/23 Previous Rx's ?Medication ?Instructions ?Recorded blood pressure kit-extra large #1 ea 01/12/21 docusate sodium 100 mg capsule 100 mg PO BEDTIME #30 caps 05/08/21 albuterol sulfate 2.5 mg/0.5 mL 5 mg inhalation Q4H PRN shortness 09/23/21 solution for nebulization of breath or wheezing #30 ea albuterol sulfate 90 mcg/actuation 2 puff inhalation Q4-6H PRN 09/23/21 aerosol inhaler shortness of breath or wheezing #6.7 grams diclofenac sodium 1 % topical gel 4 g topical QID 30 days #100 grams 12/09/21 (Arthritis Pain (diclofenac)) clonidine HCl 0.1 mg tablet 0.1 mg PO BID 30 days #60 tabs 04/12/22 incontinence pad, liner, disp #39 ea 04/12/22 hydrochlorothiazide 25 mg tablet 25 mg PO DAILY 30 days #30 tabs 04/29/22 fluticasone propionate 110 1 puff inhalation BID 30 days #12 06/02/22 mcg/actuation HFA aerosol inhaler grams blood-glucose meter (OneTouch #1 ea 02/11/23 Ultra2 Meter) lancets 33 gauge (OneTouch Delica #100 ea 03/01/23 Lancets) hydroxyzine HCl 10 mg tablet 10 mg PO TID PRN for itch #90 tabs 06/15/23 ketoconazole 2 % topical cream 1 appl topical DAILY #30 grams 07/18/23 flash glucose scanning reader #1 ea 09/28/23 (FreeStyle Susu 2 Pansey) flash glucose sensor (PollGroundStyle #2 ea 09/28/23 Susu 2 Sensor kit) humidifiers #1 ea 11/02/23 tizanidine 4 mg tablet 4 mg PO TID PRN for pain #270 tabs 11/23/23 dicyclomine 20 mg tablet 20 mg PO BID PRN for cramps #180 12/22/23 tabs amlodipine 10 mg tablet 10 mg PO DAILY 90 days #90 tabs 12/23/23 blood sugar diagnostic (OneTouch #100 ea 12/23/23 Ultra Test strips) lisinopril 40 mg tablet 40 mg PO DAILY 90 days #90 tabs 12/23/23 atorvastatin 40 mg tablet 40 mg PO DAILY 90 days #90 tabs 01/22/24 cholecalciferol (vitamin D3) 50 50 mcg PO DAILY #90 caps 01/22/24 mcg (2,000 unit) capsule omeprazole 20 mg capsule,delayed 20 mg PO BID #180 caps 02/27/24 release rivaroxaban 20 mg tablet (Xarelto) 20 mg PO DAILY #90 tabs 03/01/24 oxycodone 5 mg tablet 5 mg PO BID PRN pain 30 days #60 03/28/24 tabs albuterol sulfate 90 mcg/actuation 2 puff inhalation Q20M PRN 04/03/24 aerosol inhaler shortness of breath or wheezing #8.5 grams benzonatate 100 mg capsule 100 mg PO BID PRN cough #20 caps 04/03/24 doxycycline monohydrate 100 mg 100 mg PO BID 5 days #10 caps 04/03/24 capsule prednisone 20 mg tablet 40 mg (2 x 20 mg) PO DAILY 4 days 04/03/24 #8 tabs Allergies Allergy/AdvReac Type Severity Reaction Status Date / Time ibuprofen [IBUPROFEN] Allergy Mild RASH, Verified 04/03/24 11:43 hives, hives Review of Systems 2 Review of Systems: Constitutional: No fever, chills, fatigue, night sweats, weight changes ENT/Mouth: No ear pain, hearing loss, nasal congestion, sinus pain, rhinorrhea, sore throat Eyes: No eye pain, swelling, redness, vision changes, discharge Cardio: No chest pain, palpitations, ORTEZ, orthopnea, peripheral edema Pulm: No SOB, sputum, dyspnea, hemoptysis, +SOB, +wheezing GI: No nausea, vomiting, hematemesis, abdominal pain, diarrhea, constipation, hematochezia, melena : No irregular bleeding, dysuria, frequency, urgency, hesitancy, hematuria, flank pain, urinary flow changes, urinary incontinence or retention MSK: No back pain, neck pain, joint pain, myalgias Skin: No lesions, rashes Neuro: No weakness, numbness, paresthesias, LOC, dizziness, headache Psych: No anxiety/panic, depression, SI/HI, AH/VH All other systems reviewed and are negative. [facility] Past Medical History Attestation statement: The following information was validated with the patient. Source: old records reviewed and nursing notes reviewed Medical History Barretts esophagus Hx of flexible sigmoidoscopy Osteoarthritis of left hip Spondylosis without myelopathy or radiculopathy, 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 Sacroiliitis Asthma WENDY (obstructive sleep apnea) Morbid obesity Swelling of both lower extremities Afib Disc degeneration, lumbar Cervical pain (neck) Calcaneal spur Benign neoplasm breast skin Bursitis, shoulder Xanthelasma Auditory hallucinations Impaired glucose tolerance Hyperlipidemia Anxiety Depression Adenomatous polyp of colon Esophagitis Hypertensive urgency PAF (paroxysmal atrial fibrillation) Palpitations HTN (hypertension) Dyspepsia GERD (gastroesophageal reflux disease) Surgical History Hx of colonoscopy H/O esophagogastroduodenoscopy (09/01/15) Status post Margarita fundoplication (10/27/12) History of removal of cyst Hx of cholecystectomy History of hysterectomy Family History Family History Father CVD (cardiovascular disease) HTN (hypertension) Diabetes Mother HTN (hypertension) Diabetes CVD (cardiovascular disease) Brother Pacemaker Maternal Grandmother Throat cancer Brother No problems noted. Daughter Hx LEEP (loop electrosurgical excision procedure), cervix, Other Mental health disorder Substance use disorder Social History Social History Household Members: None Housing: House Are you a primary healthcare consultant to a significant other at home: No Alcohol intake: never Patient Tobacco Use Status: Never used Tobacco e-Cigarette/Vaping Use: Never Used Second Hand Smoke Exposure: No Advance Directives Date on File: 03/16/21 Current occupational status: disabled Sexual orientation: Straight/Heterosexual Gender identity: Female Cognitive needs: No Hearing needs: No Vision needs: No Physical Exam 2 Vital Signs: Vital Signs: Last Vital Signs Temp 98.6 F 04/03/24 16:39 Pulse 98 04/03/24 16:39 Resp 20 04/03/24 16:39 BP 147/78 H 04/03/24 16:39 Pulse Ox 98 04/03/24 16:39 O2 Del Method Room Air 04/03/24 16:39 BMI result Body Mass Index 40.3 Patient hypertensive, vitals otherwise WNL Const: General: cooperative, healthy appearing, comfortable and no acute distress Orientation/consciousness: patient oriented x3 Limitations: no limitations HEENT: Head: Yes normal to inspection, Yes No palpable skull fracture present, Yes normocephalic and Yes atraumatic Ears: hearing grossly normal bilaterally, external ears normal, TM's normal bilaterally, EAC's normal, mastoids normal and no periauricular adenopathy Eyes: General: appearance normal, both eyes and all related structures C onjunctivae: conjunctivae normal Sclerae: sclerae normal Pupils: Equal, round and reactive pupils present Neck: Neck: Yes normal visual inspection, Yes full ROM and Yes no lymphadenopathy Chest: Chest palpation & inspection: normal inspection of the chest and normal palpation of entire chest wall Resp: Other: Diffuse expiratory wheezes and rhonchi Effort & Inspection: normal respiratory effort and able to speak in complete sentences Cardio: Rate: regular rate Rhythm: regular rhythm Skin: General skin exam: no rashes or lesions noted Neuro: General: patient oriented x3 and gait normal Cranial nerves: Yes Equal, round and reactive pupils present Course Course Course Narrative: CBC without leukocytosis or left shift. No anemia. H&H stable. D-dimer negative > PE unlikely. Initial troponin 4. Delta troponin 3.8. No acute coronary syndrome. BNP WNL at 60. Normal renal and liver function. Random glucose 123. She has tested negative for COVID, flu, RSV and strep. Chest x- ray unremarkable. No consolidation or infiltrate to suggest pneumonia. EKG showing normal sinus rhythm with a rate of 81 beats per minute, QT 350, QTC 406, no acute ischemic changes or ST elevations. > on re-evaluation, patient reports improvement breathing with breathing treatment and Decadron. Her lungs are now clear to auscultation bilaterally. She is speaking in full complete sentences. Controlling secretions. No stridor. No signs of respiratory distress. Patient likely has acute asthma exacerbation. prednisone and albuterol inhaler sent to pharmacy. Patient has remained stable throughout ED visit today. Discussed worrisome signs and symptoms and when to return to the ED. All questions answered at this time. Patient is agreeable with disposition and stable for discharge. Medications Administered Discontinued Medications Generic Name Dose Route Start Last Admin Trade Name Freq PRN Reason Stop Dose Admin Albuterol Sulfate 2.5 mg/ 0 mg 04/03/24 14:37 04/03/24 14:41 Albuterol/Ipratropium 3 ml INHALE 04/03/24 14:38 5 dose ONCE ONE Administration Dexamethasone Sodium Phosphate 10 mg 04/03/24 14:28 04/03/24 14:38 Dexamethasone Sod Phosphate 10 Mg/Ml Vial IVPUSH 04/03/24 14:29 10 mg ONCE ONE Administration Medical Decision Making Medical Decision Making MDM Narrative: 59-year-old female with past medical history significant for atrial fibrillation on Xarelto, asthma, depression, esophagitis, GERD, hypertension, hyperlipidemia, WENDY presents to the emergency department today for evaluation of productive cough, wheezing and mild shortness of breath worsening over the last 4 days. Vital signs stable. She is nontoxic appearing in no acute distress. Skin warm dry intact. No rashes. RRR. Lungs with diffuse wheezes and rhonchi. no calf tenderness b/l. Differential diagnosis includes asthma exacerbation, bronchitis, pneumonia. Low suspicion for ARDS, pleural effusion, pulmonary embolism, ACS, arrhythmia. Plan for labs, trop, EKG, chest x-ray, breathing treatment and re-evaluation. Differential Diagnosis Differential Diagnoses: The differential diagnosis associated with the presentation includes As above Admission/Observation Consideration of admission/observation: Escalation of care including admission/observation considered Admission considered on presentation Lab Data MDM Lab Attestation statement: I reviewed the patient's lab results. As above 04/03/24 12:11 04/03/24 12:11 Labs: Lab Results 04/03/24 04/03/24 Range/Units 12:11 15:15 WBC 6.4 (4.8-10.8) X10*3/uL RBC 4.79 (4.20-5.50) X10*6/uL Hgb 13.0 (12.0-16.0) g/dl Hct 39.0 (37.0-47.0) % MCV 81.4 (80.0-98.0) fL MCH 27.1 (27.0-33.0) pg MCHC 33.3 (31.0-35.0) g/dl RDW 14.1 (11.0-16.0) % Plt Count 264 (160-400) X10*3/uL MPV 10.8 (9.4-12.3) fL Immature Gran % (Auto) 0.3 (0.0-0.4) % Neut % (Auto) 72.3 (45-73) % Lymph % (Auto) 15.0 L (20-40) % Weld % (Auto) 8.1 (2-11) % Eos % (Auto) 3.7 (0-4) % Baso % (Auto) 0.6 (0-2) % Lymph # (Auto) 1.0 L (1.2-4.9) X10*3/uL Weld # (Auto) 0.5 (0.1-1.2) X10*3/uL Eos # (Auto) 0.2 (0.0-0.4) X10*3/uL Baso # (Auto) 0.0 (0.0-0.2) X10*3/uL Abs Immat Gran (auto) 0.02 (0.00-0.03) X10*3/uL Absolute Neuts (auto) 4.6 (2.0-8.3) x10*3/uL Absolute Nucleated RBC 0.000 (0.0-0.012) X10*3/uL Nucleated RBC % (auto) 0.0 (0.0-0.2) /100WBC PT 14.1 H (11.1-13.3) SEC INR 1.2 H (0.9-1.1) APTT 37.5 H (26.0-36.8) SEC D-Dimer High Sensitivty < 150 NG/ML Sodium 142 (135-145) mmol/L Potassium 4.4 (3.3-5.1) mmol/L Chloride 108 (96-108) mmol/L Carbon Dioxide 24 (22-29) mmol/L Anion Gap 14 (12-20) BUN 15 (9-16) mg/dL Creatinine 1.22 (0.5-1.4) mg/dL Estim Creat Clear Calc 54.2 Estimated GFR 45 Random Glucose 123 H (60-115) mg/dL Calcium 9.7 (8.4-10.2) mg/dL Total Bilirubin 0.5 (0.0-1.0) mg/dL AST 20 (5-31) U/L ALT 23 (0-31) U/L Alkaline Phosphatase 110 (39-117) U/L Troponin I High Sens 4.0 3.8 (<3.5-17.0) ng/L B-Natriuretic Peptide 60 (<100) pg/mL Total Protein 7.3 (6.5-8.0) g/dL Albumin 4.0 (3.5-5.0) g/dL Influenza Type A (PCR) NEGATIVE (Negative) Influenza Type B (PCR) NEGATIVE (Negative) RSV RNA Qual (PCR) NEGATIVE (Negative) SARS-CoV-2 RNA (RT-PCR) NEGATIVE (Negative) S. pyogenes GrpA KATI Negative (Negative) Independent Interpretation I performed an independent interpretation of an: EKG and Plain X-Ray Interpretation: EKG showing normal sinus rhythm with a rate of 81 beats per minute, QT 350, QTC 406, no acute ischemic changes or ST elevations. Chest x-ray without consolidation or infiltrate, agree with radiologist's interpretation Radiology Impression Discussion of test interpretation with radiology: I have reviewed the radiologist's reading. Radiologist Impression: EXAMINATION: XR CHEST CLINICAL INFORMATION: Shortness of breath COMPARISON: 08/18/2023 TECHNIQUE: 2 views of the chest were obtained. FINDINGS: No significant abnormality is noted involving the heart, lungs, mediastinum, bony thorax or soft tissues. Surgical clips are present in the right axilla. XR/XR chest 2V IMPRESSION: Unremarkable examination. External Record Review External record reviewed: Inpatient record, Office record, Outpatient record, Prior outpatient labs, Prior outpatient radiology and Primary care record Prescription Management I considered prescription management with: Other (Prednisone, albuterol) Chronic Conditions Patient?s care impacted by: Other (Asthma) Social Determinants Patient?s care significantly limited by Social Determinants of Health including: Other Social Determinant of Health Critical Care Time Critical Care Time Critical Care Time: Yes Total Critical Care Time: 37 Attestation: Critical care time in the amount of 37 minutes has been provided to the patient in terms of direct patient care, frequent reevaluation, review and interpretation of medical data and results, and management of potentially life- threatening conditions. This is all outside of any medical procedures. Discharge Plan Discharge Clinical Impression: Asthma exacerbation, Bronchitis Patient Disposition: Home, Self-Care Instructions: Asthma (ED), Acute Bronchitis (ED), Wheezing (ED) Additional Instructions: Your lab work today is reassuring. Your blood work is negative for blood clot. Your EKG is normal. Your chest xray is normal. You likely had an acute asthma exacerbation along with bronchitis. You were given a dose of steroids and breathing treatment in the ED with improvement. Prednisone has been sent to your pharmacy for you to take for the next 4 days. You were given a dose of steroid in the ED today so please begin this medication tomorrow. If you have diabetes, please make sure you are taking your sugars at home as this can increase blood sugar. Azithromycin (Z-Jhon) is an antibiotic that has been sent to your pharmacy for you to take as prescribed over the next 5 days. An albuterol inhaler refill has been sent to your pharmacy. If you find yourself using this more often without resolution, please return to the ED for further evaluation as this warrants further treatment. Fabi Temple have been sent to your pharmacy for cough. Follow-up with your primary care provider. Return with new or worsening symptoms. In the case of an emergency call 911. Prescriptions: New prednisone 20 mg tablet 40 mg PO DAILY 4 Days Qty: 8 0RF albuterol sulfate 90 mcg/actuation HFA aerosol inhaler 2 puff inhalation Q20M PRN (Reason: shortness of breath or wheezing) Qty: 8.5 0RF benzonatate 100 mg capsule 100 mg PO BID PRN (Reason: cough) Qty: 20 0RF doxycycline monohydrate 100 mg capsule 100 mg PO BID 5 Days Qty: 10 0RF No Action (DME) incontinence pad, liner, disp Pad See Rx Instructions .Route Qty: 39 0RF Rx Instructions: use daily for incont hydrochlorothiazide 25 mg tablet 25 mg PO DAILY 30 Days Qty: 30 2RF fluticasone propionate 110 mcg/actuation HFA aerosol inhaler 1 puff inhalation BID 30 Days Qty: 12 1RF (DME) blood-glucose meter [OneTouch Ultra2 Meter] [facility] [place] Instructions .Route Qty: 1 0RF Rx Instructions: Use to check blood sugar twice daily: fasting blood sugar and a random blood sugar (DME) lancets [OneTouch Delica Lancets] [facility] See Rx Instructions .Route Qty: 100 3RF Rx Instructions: Use to check blood sugar twice daily: fasting blood sugar and a random blood sugar hydroxyzine HCl 10 mg tablet 10 mg PO TID PRN (Reason: for itch) Qty: 90 8RF (DME) FreeStyle Susu 2 Sensor Kit See Rx Instructions .Route Qty: 2 5RF Rx Instructions: test blood sugar 4 times per day (DME) FreeStyle Susu 2 Pansey Misc See Rx Instructions .Route Qty: 1 0RF Rx Instructions: As directed (DME) humidifiers Misc See Rx Instructions .Route Qty: 1 0RF Rx Instructions: As directed tizanidine 4 mg tablet 4 mg PO TID PRN (Reason: for pain) Qty: 270 8RF dicyclomine 20 mg tablet 20 mg PO BID PRN (Reason: for cramps) Qty: 180 1RF lisinopril 40 mg tablet 40 mg PO DAILY 90 Days Qty: 90 1RF amlodipine 10 mg tablet 10 mg PO DAILY 90 Days Qty: 90 1RF (DME) OneTouch Ultra Test Strip See Rx Instructions .Route Qty: 100 2RF Rx Instructions: Use to check blood sugar twice daily: fasting blood sugar and a random blood sugar atorvastatin 40 mg tablet 40 mg PO DAILY 90 Days Qty: 90 1RF cholecalciferol (vitamin D3) 50 mcg (2,000 unit) capsule 50 mcg PO DAILY Qty: 90 1RF omeprazole 20 mg capsule,delayed release(DR/EC) 20 mg PO BID Qty: 180 1RF Xarelto 20 mg tablet 20 mg PO DAILY Qty: 90 2RF Hold Instructions: Resume on 04/08/23. resume tomorrow am docusate sodium 100 mg capsule 100 mg PO BEDTIME Qty: 30 0RF albuterol sulfate 90 mcg/actuation HFA aerosol inhaler 2 puff inhalation Q4-6H PRN (Reason: shortness of breath or wheezing) Qty: 6.7 0RF albuterol sulfate 2.5 mg/0.5 mL solution for nebulization 5 mg inhalation Q4H PRN (Reason: shortness of breath or wheezing) Qty: 30 0RF (DME) blood pressure kit-extra large Kit See Rx Instructions .ROUTE .MEDSUPPLY Qty: 1 0RF Rx Instructions: As directed clonidine HCl 0.1 mg tablet 0.1 mg PO BID 30 Days Qty: 60 1RF ketoconazole 2 % cream 1 appl topical DAILY Qty: 30 0RF melatonin 3 mg capsule 3 mg PO BEDTIME PRN aripiprazole 5 mg tablet 5 mg PO DAILY buspirone 15 mg tablet 15 mg PO BID spironolactone 25 mg tablet 25 mg PO BID sertraline 100 mg tablet 100 mg PO DAILY zolpidem 5 mg tablet 5 mg PO BEDTIME PRN (Reason: Sleep) naloxone [Narcan] 4 mg/actuation spray,non-aerosol 4 mg intranasal Q2M PRN (Reason: as directed) Rx Instructions: spray 1 dose into ONE nostril; alternate nostrils w each dose until help arrives diclofenac sodium [Arthritis Pain (diclofenac)] 1 % gel 4 g topical QID 30 Days Qty: 100 11RF Rx Instructions: apply to single knee, ankle, foot; for foot includes sole/toes/top of foot oxycodone 5 mg tablet 5 mg PO BID PRN (Reason: pain) 30 Days Qty: 60 0RF melatonin 3 mg tablet 3 mg PO QPM carvedilol 25 mg tablet 25 mg PO BID buspirone 30 mg tablet PO DAILY Referrals: Alfredo Massey, [facility] [Primary Care Provider] - Interventions: ED Discharge Assessment Last Done: 04/03/24 16:39 Discharge Date/Time: 04/03/24 16:40 Print Language: Iraqi
[2024-04-03] MEDS: dexAMETHasone sod phosphate 10 MG/ML VIAL IVPUSH (14:38)
--- NOTE | 2024-04-03 14:40 | PC.NURSE ---
pt a&ox3, speaking in full sentences, pt medicated per order, RT at bedside, will continue to monitor
[2024-04-03] MEDS: Albuterol Sulfate 2.5 MG, Albuterol/Iprat 2.5/0.5MG 3 ML 3 ML INHALE (14:41)
[2024-04-03 14:42] VITALS: PULSE 88; RESP 20; O2SAT 98
[2024-04-03 14:42] LABS: D Dimer High Sensitivity < 150 NG/ML
[2024-04-03 15:41] LABS: Troponin-I High Sensitivity 3.8 ng/L (<3.5-17.0)
[2024-04-03 16:39] VITALS: BP 147/78; PULSE 98; RESP 20; TEMP 37; O2SAT 98
== END 2024-04-03 16:40 | disposition home or self-care (01) ==
PROVIDERS: Physician Assistant; Physician Assistant Medical; Emergency Provider Emergency Medicine; PCP Nurse Practitioner Family
DX: J45.901 Unspecified asthma with (acute) exacerbation (principal); R06.02 Shortness of breath; I10 Essential (primary) hypertension; E78.5 Hyperlipidemia, unspecified; I48.91 Unspecified atrial fibrillation; K21.9 Gastro-esophageal reflux disease without esophagitis; R05.9 Cough, unspecified; Z79.01 Long term (current) use of anticoagulants; Z79.899 Other long term (current) drug therapy; Z03.818 Encounter for observation for suspected exposure to other biological agents ruled out
CPT/HCPCS: 0241U; 36415; 71046; 80053; 83880; 84484; 85025; 85379; 85610; 85730; 87651; 93005; 94640; 99284; J1100

== ENCOUNTER → 2024-04-03 11:48 | Outpatient (BNV) | payer OTHER, SELFPAY | PROVIDERS: Emergency Provider Emergency Medicine; PCP Nurse Practitioner Family; Visit Provider Internal Medicine Cardiovascular Disease | DX: R10.9 Unspecified abdominal pain (principal) | CPT/HCPCS: 93010 ==

== ENCOUNTER 2024-04-06 07:44 | Outpatient (REF) | payer OTHER, SELFPAY ==
--- NOTE | ~2024-04-06 | XR_ITS ---
EXAMINATION: AP upright of both knees and 2 views of the right knee CLINICAL INFORMATION: Pain in the right knee COMPARISON: X-ray the left knee February 2023. X-ray of the right knee March 2021 TECHNIQUE: AP upright of both knees. Additional lateral patella view of the right knee FINDINGS: Right knee: Small marginal osteophytes about all compartments without joint space narrowing indicative of mild osteoarthritis. No effusion. Small calcification adjacent to the medial femoral condyle unchanged likely sequela of old medial collateral ligament partial tear. Left knee Limited: Medial compartment: possible small marginal osteophytes about the medial compartment with a question small subchondral cysts unchanged compared to prior. No joint space narrowing. Lateral compartment normal. Patellofemoral compartment not assessed on this AP projection XR/XR knee RT 3V IMPRESSION: RIGHT KNEE: Mild osteoarthritis unchanged. Old medial collateral ligament tear LEFT KNEE: Possible Mild osteoarthritis unchanged compared with prior.
== END 2024-04-06 07:45 | disposition home or self-care (01) ==
LOC: HO.HOSX 07:44
PROVIDERS: Visit Provider Orthopaedic Surgery
DX: M17.0 Bilateral primary osteoarthritis of knee (principal); M70.62 Trochanteric bursitis, left hip
CPT/HCPCS: 73562; 99212

== ENCOUNTER 2024-04-06 11:11 | Outpatient (AMB) | payer OTHER, SELFPAY ==
[2024-04-06 11:39] VITALS: BMI 40.2
--- NOTE | 2024-04-06 11:39 | MHC.OFFVIS ---
Vital Signs 04/06/24 11:39 Height 5 ft 2 in Weight 220 lb BMI 40.2 Intake Visit Reasons: new prob- Rt knee pain Intake Note: Nydia is a 59 year old female who presents today for a new problem visit with complaints of bilateral knee OA. She has been seen in the past by [facility] and she has steroid injections, most recent injection was done bilaterally with Ta-Jocelyn in 2019. Patient reports that these injection were not helpful. Allergies ibuprofen [IBUPROFEN] Allergy (Mild, Verified 04/03/24 11:43) RASH, hives, hives HPI HPI new prob- Rt knee pain: Details: This is a 59-year-old woman who describes left knee and lateral hip pain. She has a history of injections into her bursa and lumbar spine. She states these have both been briefly helpful. She describes burning into her lateral thigh and down into her foot. She states this has been going on for years. She describes some knee pain but this is minimal compared to where lateral burning hip and thigh pain. She denies groin pain. She has not done physical therapy and does not really want to do physical therapy. She does not take NSAIDs however states that ibuprofen gives her rash but she can tolerate Naprosyn. 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 Sacroiliitis Asthma WENDY (obstructive sleep apnea) Morbid obesity Swelling of both lower extremities Afib Disc degeneration, lumbar Cervical pain (neck) Calcaneal spur Benign neoplasm breast skin Bursitis, shoulder Xanthelasma Auditory hallucinations Impaired glucose tolerance Hyperlipidemia Anxiety Depression Adenomatous polyp of colon Esophagitis Hypertensive urgency PAF (paroxysmal atrial fibrillation) Palpitations HTN (hypertension) Dyspepsia GERD (gastroesophageal reflux disease) Surgical History Hx of colonoscopy H/O esophagogastroduodenoscopy (09/01/15) Status post Margarita fundoplication (10/27/12) History of removal of cyst Hx of cholecystectomy History of hysterectomy Family History Father CVD (cardiovascular disease) HTN (hypertension) Diabetes Mother HTN (hypertension) Diabetes CVD (cardiovascular disease) Brother Pacemaker Maternal Grandmother Throat cancer Brother No problems noted. Daughter Hx LEEP (loop electrosurgical excision procedure), cervix, Other Mental health disorder Substance use disorder Social History Household Members: None Housing: House Are you a primary resident care director to a significant other at home: No Alcohol intake: never Patient Tobacco Use Status: Never used Tobacco e-Cigarette/Vaping Use: Never Used Second Hand Smoke Exposure: No Advance Directives Date on File: 03/16/21 Current occupational status: disabled Sexual orientation: Straight/Heterosexual Gender identity: Female Cognitive needs: No Hearing needs: No Vision needs: No Physical Exam Vital Signs: BMI result Body Mass Index 40.2 Extrem Other: Left hip with full range of motion no groin pain with impingement testing. She is tenderness palpation over the greater troch and down the iliotibial band extending anterolaterally into the anterior thigh. This is a very sensitive for her. Her knee is mildly tender to palpation along the medial joint line with a negative Migdalia's and full range of motion no effusion. Results Reviewed Results Reviewed: Mild left knee medial compartment osteoarthritis Left hip enthesophytes with no hip joint degenerative changes Assessment & Plan Assessment & Plan (1) Greater trochanteric bursitis of left hip: Code(s): M70.62 - Trochanteric bursitis, left hip Category: Medical Plan: This is a 59-year-old with bursitis of the left hip. There is no evidence of hip or knee arthritis that is significant. I discussed injections which she has not interested in physical therapy which she does not feel interested in either. No orthopedic intervention warranted. Orders: Orders XR knee RT 3V Today M25.561 - Pain in right knee Coding Level of Care Code Est Pt Level 3 (93912) Diagnoses Greater trochanteric bursitis of left hip M70.62
== END 2024-04-06 12:26 | disposition home or self-care (01) ==
PROVIDERS: PCP Nurse Practitioner Family; Visit Provider Orthopaedic Surgery
DX: M70.62 Trochanteric bursitis, left hip (principal)
CPT/HCPCS: 99213

== ENCOUNTER 2024-04-17 12:18 | Outpatient (AMB) | payer OTHER, SELFPAY ==
--- NOTE | 2024-04-17 12:26 | A.OFFVIS_ITS ---
Vital Signs 04/17/24 12:31 Height 5 ft 2 in Weight 225 lb 2 oz BMI 41.2 BP 122/70 Blood Pressure Location Lt brachial Position Sitting Pulse 98 Pulse Source Pulse Oximeter Pulse Oximetry (%) 98 Oxygen Delivery Method Room Air Intake Visit Reasons: Follow Up - LVM w/add Intake Note: Patient presents for f/u. Allergies ibuprofen [IBUPROFEN] Allergy (Mild, Verified 04/17/24 12:29) RASH, hives, hives HPI Comments Details: 58 y/o female patient with hx of asthma and Afib comes for follow up of sleep apnea. Pt underwent PSG sleep study and titration study. The sleep study result was significant for mild degree of sleep apnea with increased severity in REM sleep. The AHI was 7/hr, REM AHI was 30/hr and oxygen marge was 83%. Pt's breathing and oxygenation stabilized with CPAP at [id number]. CPAP at [id number] ordered. she is doing well on CPAP It is helping her daytime hypersomnia and sleep. 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 Sacroiliitis Asthma WENDY (obstructive sleep apnea) Morbid obesity Swelling of both lower extremities Afib Disc degeneration, lumbar Cervical pain (neck) Calcaneal spur Benign neoplasm breast skin Bursitis, shoulder Xanthelasma Auditory hallucinations Impaired glucose tolerance Hyperlipidemia Anxiety Depression Adenomatous polyp of colon Esophagitis Hypertensive urgency PAF (paroxysmal atrial fibrillation) Palpitations HTN (hypertension) Dyspepsia GERD (gastroesophageal reflux disease) Surgical History Hx of colonoscopy H/O esophagogastroduodenoscopy (09/01/15) Status post Margarita fundoplication (10/27/12) History of removal of cyst Hx of cholecystectomy History of hysterectomy Family History Father CVD (cardiovascular disease) HTN (hypertension) Diabetes Mother HTN (hypertension) Diabetes CVD (cardiovascular disease) Brother Pacemaker Maternal Grandmother Throat cancer Brother No problems noted. Daughter Hx LEEP (loop electrosurgical excision procedure), cervix, Other Mental health disorder Substance use disorder Social History Household Members: None Housing: House Are you a primary child care education coordinator to a significant other at home: No Alcohol intake: never Patient Tobacco Use Status: Never used Tobacco e-Cigarette/Vaping Use: Never Used Second Hand Smoke Exposure: No Advance Directives Date on File: 03/16/21 Current occupational status: disabled Sexual orientation: Straight/Heterosexual Gender identity: Female Cognitive needs: No Hearing needs: No Vision needs: No Review of Systems ENT Reports Normal hearing present Neuro Reports Normal hearing present Physical Exam Vital Signs: Last Vital Signs Pulse 98 04/17/24 12:31 BP 122/70 04/17/24 12:31 Pulse Ox 98 04/17/24 12:31 Oxygen Delivery Method Room Air 04/17/24 12:31 BMI result Body Mass Index 41.2 Const General: no acute distress Nutritional Appearance: obese Orientation/consciousness: patient oriented x3 Limitations: ambulation with cane Resp Effort & Inspection: normal respiratory effort and able to speak in complete sentences Back/Spine/Pelvis Other: Antalgic gait on the right. Patient ambulates with cane. Neuro General: patient oriented x3 Cranial nerves: Yes Bilaterally intact EOM present, Yes Normal facial strength present, Yes Symmetric palate elevation present, Yes Normal hearing present, Yes Ability to bilaterally rotate head present and Yes Ability to bilaterally elevate shoulders present Cognition (Neuro): normal cognition Motor exam (neuro): 5/5 motor strength present throughout, Pronator motor function not present and no tremor noted Assessment & Plan Assessment & Plan (1) WENDY (obstructive sleep apnea): Comment: The AHI was 7/hr, REM AHI was 30/hr and oxygen marge was 83% Code(s): G47.33 - Obstructive sleep apnea (adult) (pediatric) Category: Medical Plan Continue CPAP at [id number]. Stressed CPAP compliance, use CPAP nightly and more than 4 hrs. Sleep hygiene education provided and wt reduction advised. Coding Level of Care Code Est Pt Level 4 (50521) Diagnoses WENDY (obstructive sleep apnea) G47.33
[2024-04-17 12:31] VITALS: BP 122/70; PULSE 98; O2SAT 98; BMI 41.2
== END 2024-04-17 12:49 | disposition home or self-care (01) ==
PROVIDERS: PCP Nurse Practitioner Family; Visit Provider Psychiatry & Neurology Neurology
DX: G47.33 Obstructive sleep apnea (adult) (pediatric) (principal)
CPT/HCPCS: 99214

== ENCOUNTER → 2024-04-17 12:18 | Outpatient (BNVA) | payer OTHER, SELFPAY | PROVIDERS: PCP Nurse Practitioner Family; Visit Provider Psychiatry & Neurology Neurology | DX: G47.33 Obstructive sleep apnea (adult) (pediatric) (principal) | CPT/HCPCS: 99212 ==

== ENCOUNTER 2024-04-23 08:33 | Outpatient (AMB) | payer OTHER, SELFPAY ==
--- NOTE | 2024-04-23 08:50 | MHC.PC.OV ---
Vital Signs 04/23/24 08:53 Height 5 ft 2 in Weight 226 lb BMI 41.3 BP 124/70 Blood Pressure Location Lt brachial Position Sitting Pulse 62 Pulse Source Pulse Oximeter Pulse Oximetry (%) 98 Oxygen Delivery Method Room Air Intake Visit Reasons: PE Intake Note: Patient here for physical exam. Mammo: will be scheduling this today. Colon: 2022 due in 5yrs Allergies ibuprofen [IBUPROFEN] Allergy (Mild, Verified 04/23/24 08:55) RASH, hives, hives Tobacco use date assessed: 04/23/24 Dental Screening Dental Screen Date: 04/23/24 Did you have a dental visit in the last 12 months?: Yes Did you have a dental problem in the last 6 months where you did not have access to dental care?: No Was dental information given to patient?: Patient has dentist HPI PE HPI Details Pt is here for a PE. Will order labs. Due for colon screen, will refer to GI. Due for mammo, will order. Has a internal control specialist. Pt is a diabetic, on an JELANI and a statin. A1C in office today is 7.5. Due for microalbumin. Denies polyuria, polydipsia, reports neuropathy (burning sensation). Pt denies any signs and symptoms of hypoglycemia and does know how to correct it. Will start jardiance 10mg. 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 Sacroiliitis Asthma WENDY (obstructive sleep apnea) Morbid obesity Swelling of both lower extremities Afib Disc degeneration, lumbar Cervical pain (neck) Calcaneal spur Benign neoplasm breast skin Bursitis, shoulder Xanthelasma Auditory hallucinations Impaired glucose tolerance Hyperlipidemia Anxiety Depression Adenomatous polyp of colon Esophagitis Hypertensive urgency PAF (paroxysmal atrial fibrillation) Palpitations HTN (hypertension) Dyspepsia GERD (gastroesophageal reflux disease) Surgical History Hx of colonoscopy H/O esophagogastroduodenoscopy (09/01/15) Status post Margarita fundoplication (10/27/12) History of removal of cyst Hx of cholecystectomy History of hysterectomy Family History Father CVD (cardiovascular disease) HTN (hypertension) Diabetes Mother HTN (hypertension) Diabetes CVD (cardiovascular disease) Brother Pacemaker Maternal Grandmother Throat cancer Brother No problems noted. Daughter Hx LEEP (loop electrosurgical excision procedure), cervix, Other Mental health disorder Substance use disorder Social History Household Members: None Housing: House Are you a primary resident caregiver to a significant other at home: No Alcohol intake: never Patient Tobacco Use Status: Never used Tobacco e-Cigarette/Vaping Use: Never Used Second Hand Smoke Exposure: No Advance Directives Date on File: 03/16/21 Current occupational status: disabled Sexual orientation: Straight/Heterosexual Gender identity: Female Cognitive needs: No Hearing needs: No Vision needs: No Questionnaire PHQ-9 Over the last 2 weeks, how often have you been bothered by any of the following problems? 1. Little interest or pleasure in doing things: more than half the days 2. Feeling down, depressed, or hopeless: more than half the days 3. Trouble falling or staying asleep, or sleeping too much: nearly every day 4. Feeling tired or having little energy: nearly every day 5. Poor appetite or overeating: more than half the days 6. Feeling bad about yourself - or that you are a failure or have let yourself or your family down: several days 7. Trouble concentrating on things, such as reading the newspaper or watching television: several days 8. Moving or speaking so slowly that other people could have noticed. Or the opposite - being so fidgety or restless that you have been moving around a lot more than usual: nearly every day 9. Thoughts that you would be better off or of hurting yourself in some way: not at all Total score: 17 Depression Screening Interpretation: Positive Depression Screening Follow-up: Existing condition and Declines treatment Depression Screening Done: Yes 38319 - PHQ-9 Billing: Patient declined-do not bill Source: Developed by Drs. Leonardo Grant, Philly Velasquez, Jose Ramon Poon and colleagues, with an educational gifty from [employer]. Thrive Questionnaire Date Thrive assessed: 04/23/24 I am a: Patient What is your living situation today?: I have a steady place to live Within the past 12 months, did the food you bought not last and you didn't have the money to get more?: Never true Within the past 12 months, did you worry whether your food would run out before you got money to buy more?: Never true Do you have trouble paying for medicines?: No Do you have trouble getting transportation to medical appointments?: No Do you have trouble paying your heating and electricity bill?: No Do you have trouble taking care of your child, family member or friend?: No Do you have trouble with day-to-day activities such as bathing, preparing meals, shopping, managing finances, etc.?: No Are you currently unemployed and looking for a job?: No Are you interested in more education?: No Currently or been in a relationship where the following occur: I choose not to answer this question THRIVE Score: 0 DION-7 AMB Questionnaire DION-7 Date DION - 7 assessed: 04/23/24 Feeling nervous, anxious, or on edge: 2 = More than half the days Not being able to stop or control worryin = Several days Worrying too much about different things: 1 = Several days Trouble relaxin = More than half the days Being so restless that it is hard to sit still: 3 = Nearly every day Becoming easily annoyed or irritable: 2 = More than half the days Feeling afraid as if something awful might happen: 1 = Several days Total DION-7 score (0-4 normal; 5-9 mild; 10-14 moderate; 15-21 severe): 12 Source: Developed by Drs. Leonardo Grant, Philly Velasquez, Jose Ramon Poon and colleagues, with an educational gifty from [employer]. DION-7 Assessment Billing DION-7 Assessment Tool: DION-7 Assessment 59641 Review of Systems Const Denies chills and Denies fever(s) Eyes Denies blurry vision ENT Denies vertigo, Denies dizziness and Denies sore throat Card Denies chest pain at rest, Denies chest pain with activity, Denies diaphoresis, Denies dyspnea and Denies dyspnea on exertion Resp Denies cough, Denies dyspnea, Denies dyspnea on exertion and Denies wheezing GI Denies abdominal pain, Denies melena, Denies hematochezia, Denies constipation, Denies diarrhea and Denies loose stools Denies hematuria Musc Denies numbness and Denies tingling Skin/Breast Denies lesions Neuro Denies vertigo, Denies dizziness, Denies numbness and Denies tingling Psych Denies anxiety, Denies depression, Denies homicidal ideation, Denies suicidal ideation and Denies other (substance abuse) Aller/Immun Denies wheezing Physical exam (Primary Care) Vital Signs: Last Vital Signs Pulse 62 04/23/24 08:53 BP 124/70 04/23/24 08:53 Pulse Ox 98 04/23/24 08:53 Oxygen Delivery Method Room Air 04/23/24 08:53 BMI result Body Mass Index 41.3 Tobacco/Smoking Status: Tobacco use Status Tobacco use date assessed 04/23/24 04/23/24 08:57 Patient Tobacco Use Status Never used Tobacco 04/23/24 08:52 e-Cigarette/Vaping Use Never Used 04/23/24 08:52 PHQ-9: PHQ-9 Score PHQ-9: Total score 17 04/23/24 09:36 Depression Screening Interpretation: Positive Depression Screening Follow-up: Existing condition and Declines treatment Thrive Assessment: Date of Thrive Assessment Date Thrive assessed 04/23/24 04/23/24 09:06 Currently or been in a relationship where the following occur: I choose not to answer this question Const General: cooperative Nutritional Appearance: obese Orientation/consciousness: patient oriented x3 Limitations: ambulation with cane HENMT Head: Yes normal to inspection, Yes normocephalic and Yes atraumatic Ears: TM's normal bilaterally Eyes General: appearance normal, both eyes and all related structures Alignment and Position: alignment normal and position normal Neck Neck: Yes normal visual inspection and Yes no lymphadenopathy Thyroid: Thyroid normal Resp Effort & Inspection: normal respiratory effort Auscultation: clear to auscultation bilaterally Cardio Rate: regular rate Rhythm: regular rhythm Heart sounds: S1 normal heart sound present, S2 normal heart sound present and no murmurs GI Palpation (GI): Soft to palpation and nontender Auscultation: normal bowel sounds Skin Rashes: no rashes Neuro General: patient oriented x3, moves all extremities, no focal motor deficits and deep tendon reflexes 2+ bilaterally Romberg Test: Negative Extrem Other: bilat feet: + sensation with use of monofilament, feet intact Psych Appearance: grossly normal Mental Status: mental status grossly normal Speech and movement: Normal speech and movement present Affect: normal affect Attitude: cooperative Thought process: Normal thought process present Thought content: Normal thought content present Insight: Good insight present (Psych) Judgement: Good judgement present (Psych) Results AMB Hemoglobin A1c AMB Hemoglobin A1c 7.5 % Last Edit by JARET Gill on 04/23/24 09:22 Results Reviewed Results Reviewed: Laboratory Last Values Hgb A1c (Clinic) 7.5 % (4.0-6.0) H 04/23/24 09:21 Assessment and Plan Assessment & Plan (1) Diabetes: Code(s): E11.9 - Type 2 diabetes mellitus without complications Plan: Adding jardiance 10mg (2) Screening for colon cancer: Code(s): Z12.11 - Encounter for screening for malignant neoplasm of colon Plan: Referred to GI Plan The patient agreed to the use of a medical collections specialist for this encounter. Scribed for SHELDON Solitario-BC by Anyi Reeves medical collections specialist, on 04/23/2024 at 09:15 EST. Orders: Orders Lipid Panel Today E11.9 - Type 2 diabetes mellitus without complications Comprehensive [place]. Panel Fast Today E11.9 - Type 2 diabetes mellitus without complications MM screening mammo BI Today Z12.31 - Encounter for screening mammogram for malignant neoplasm of breast AMB Hemoglobin A1c Today Z13.9 - Encounter for screening, unspecified Complete Blood Count Auto Diff Today E11.9 - Type 2 diabetes mellitus without complications UA CC w/rflx Micro + Cult Today E11.9 - Type 2 diabetes mellitus without complications Microalbumin, Random (w Creat) Today E11.9 - Type 2 diabetes mellitus without complications Referrals Gastroenterology Referral Z12.11 - Encounter for screening for malignant neoplasm of colon Medications: New empagliflozin (Jardiance) 10 mg PO DAILY 90 tabs 0RF Coding Level of Care Code Est Pt Level 3 (02549) Diagnoses Diabetes E11.9 Screening for colon cancer Z12.11 Additional Codes DION-7 Assessment Billing - DION-7 Assessment Tool: DION-7 Assessment 80663 ([id number])
[2024-04-23 08:53] VITALS: BP 124/70; PULSE 62; O2SAT 98; BMI 41.3
== END 2024-04-23 09:19 | disposition home or self-care (01) ==
PROVIDERS: Visit Provider Nurse Practitioner Family
DX: E11.9 Type 2 diabetes mellitus without complications (principal); Z12.11 Encounter for screening for malignant neoplasm of colon
CPT/HCPCS: 83036; 99213

== ENCOUNTER 2024-04-26 10:52 | Outpatient (AMB) | payer OTHER, SELFPAY ==
--- NOTE | 2024-04-26 10:58 | A.OFFVIS_ITS ---
Vital Signs 04/26/24 11:04 Height 5 ft 2 in Weight 228 lb 3 oz BMI 41.7 BP 152/72 H Blood Pressure Location Rt brachial Position Sitting Pulse 79 Pulse Source Pulse Oximeter Pulse Oximetry (%) 99 Oxygen Delivery Method Room Air Intake Visit Reasons: PILL COUNT Intake Note: Nydia comes in today for a pill count to oxycodone, patient should have 2 tablets and presents with 5 tablets which she last took today 04/26/24 at 6am. Pain today 5/10. Damper Worker Required: No Accompanied by: Self / Same As Patient Allergies ibuprofen [IBUPROFEN] Allergy (Mild, Verified 04/26/24 11:05) RASH, hives, hives HPI Comments Details: Nydia is a very pleasant 59 year old female who presents to the office today for follow up chronic pain and chronic opioid therapy management. Patient is prescribed oxycodone 5mg tabs, take one tablet by mouth twice daily as needed for pain. Patient arrived today with the expectation of having 2 pills, she presented 5 pills. This demonstrates responsible attitude toward patient's opioid medications. Pain is reported today as 5/10 and last dose of pain medication was taken at 6am today. Patient denies side effects including somnolence, constipation, itching, dyspnea, rash, dizziness or weakness. Recently followed with ortho, was told there is nothing they can offer her at this time for her hip pain. Has been suffering with burning pain to bottom of both feet. States she is pre-diabetic. Was prescribed a medication for this, not sure what the name of the medication is, just started it so is hoping it will help. ? ? 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 Sacroiliitis Asthma WENDY (obstructive sleep apnea) Morbid obesity Swelling of both lower extremities Afib Disc degeneration, lumbar Cervical pain (neck) Calcaneal spur Benign neoplasm breast skin Bursitis, shoulder Xanthelasma Auditory hallucinations Impaired glucose tolerance Hyperlipidemia Anxiety Depression Adenomatous polyp of colon Esophagitis Hypertensive urgency PAF (paroxysmal atrial fibrillation) Palpitations HTN (hypertension) Dyspepsia GERD (gastroesophageal reflux disease) Surgical History Hx of colonoscopy H/O esophagogastroduodenoscopy (09/01/15) Status post Margarita fundoplication (10/27/12) History of removal of cyst Hx of cholecystectomy History of hysterectomy Family History Father CVD (cardiovascular disease) HTN (hypertension) Diabetes Mother HTN (hypertension) Diabetes CVD (cardiovascular disease) Brother Pacemaker Maternal Grandmother Throat cancer Brother No problems noted. Daughter Hx LEEP (loop electrosurgical excision procedure), cervix, Other Mental health disorder Substance use disorder Social History Household Members: None Housing: House Are you a primary patient care coordinator to a significant other at home: No Alcohol intake: never Patient Tobacco Use Status: Never used Tobacco e-Cigarette/Vaping Use: Never Used Second Hand Smoke Exposure: No Advance Directives Date on File: 03/16/21 Current occupational status: disabled Sexual orientation: Straight/Heterosexual Gender identity: Female Cognitive needs: No Hearing needs: No Vision needs: No Review of Systems Const All systems reviewed & are unremarkable except as noted in HPI and below Physical Exam Vital Signs: Last Vital Signs Pulse 79 04/26/24 11:04 BP 152/72 H 04/26/24 11:04 Pulse Ox 99 04/26/24 11:04 Oxygen Delivery Method Room Air 04/26/24 11:04 BMI result Body Mass Index 41.7 General: awake, alert, oriented. Answers questions appropriately. Fully engaged in examination. Skin: warm, dry, intact HEENT: Normocephalic. Hearing intact. Cardiac: External chest normal in appearance. Respiratory: No cough, audible wheezing or stridor. Abdomen: without gross distension. MS: No obvious swelling or deformities. SLR neg bilaterally Tender to palpation left PSIS, pain with I/E rotation left hip Neurological: Oriented to person, place, time and situation. Thought process intact. Psychiatric: Appropriate mood and affect. Good judgment and insight. Results Reviewed Results Reviewed: 07/26/23 XR HIP, LEFT CLINICAL INFORMATION: Primary osteoarthritis. FINDINGS: No fracture. Alignment is anatomic. Hip joint space is maintained. Soft tissues are unremarkable. A left tubal ligation clip is noted. IMPRESSION: Normal left hip. Assessment & Plan Assessment & Plan (1) Left hip pain: Code(s): M25.552 - Pain in left hip Category: Medical (2) Neuropathy: Comment: bilateral feet Code(s): G62.9 - Polyneuropathy, unspecified Category: Medical (3) Osteoarthritis of left hip: Code(s): M16.12 - Unilateral primary osteoarthritis, left hip Category: Medical (4) Arthritis of left knee: Code(s): M17.12 - Unilateral primary osteoarthritis, left knee Category: Medical Plan Masspat was reviewed and without concerns, pill count without concerns. No obvious signs of diversion, abuse or misuse of the opioid medication. Oxycodone 5mg PO BID PRN #60 no refills sent to pharmacy Discussed option for treatment of her bilateral peripheral neuropathy with topical capsaicin patches. Pamphlet was given to the patient for her review. She would like to see the medication primary care provider prescribed helps before proceeding, we will discuss further at next visit. Patient to follow-up in the office in 1 month, sooner if needed. All questions and concerns have been answered and patient agrees with the plan. Medications: Refilled oxycodone 5 mg PO BID 30 days PRN 60 tabs 0RF pain M46.1 - Sacroiliitis, not elsewhere classified, M54.30 - Sciatica, unspecified side Coding Level of Care Code Est Pt Level 4 (49418) Diagnoses Left hip pain M25.552 Neuropathy G62.9 Osteoarthritis of left hip M16.12 Arthritis of left knee M17.12
[2024-04-26 11:04] VITALS: BP 152/72; PULSE 79; O2SAT 99; BMI 41.7
== END 2024-04-26 11:11 | disposition home or self-care (01) ==
PROVIDERS: PCP Nurse Practitioner Family; Visit Provider Registered Nurse Emergency
DX: G62.9 Polyneuropathy, unspecified (principal); M25.552 Pain in left hip; M16.12 Unilateral primary osteoarthritis, left hip; M17.12 Unilateral primary osteoarthritis, left knee
CPT/HCPCS: 99214

== ENCOUNTER → 2024-04-26 10:52 | Outpatient (BNVA) | payer OTHER, SELFPAY | PROVIDERS: PCP Nurse Practitioner Family; Visit Provider Registered Nurse Emergency | DX: M25.552 Pain in left hip (principal); M16.12 Unilateral primary osteoarthritis, left hip; M17.12 Unilateral primary osteoarthritis, left knee; G62.9 Polyneuropathy, unspecified | CPT/HCPCS: 99212 ==

== ENCOUNTER 2024-05-03 11:05 | Outpatient (REF) | payer OTHER, SELFPAY ==
--- NOTE | ~2024-05-03 | MM_ITS ---
EXAMINATION: MM SCREENING DIGITAL BREAST TOMOSYNTHESIS, BILATERAL CLINICAL INFORMATION: Screening. Asymptomatic. The patient has a history of prior excisional biopsy of the right breast. COMPARISON: Mammography: This study is compared with prior exams dating back to 2019. TECHNIQUE: Digital breast tomosynthesis is performed in both the craniocaudal and mediolateral oblique views along with computer-aided detection (CAD). Synthesized 2D images are generated from the tomosynthesis. FINDINGS: The breasts are almost entirely fatty (ACR BI-RADS breast composition Category a). There are no significant masses, abnormal calcifications, or other abnormalities. There are surgical clips in the right axilla. MM/MM tomosynthesis screening BI IMPRESSION: No mammographic evidence of malignancy. ASSESSMENT: BI-RADS BI-RADS 1 - Negative RECOMMENDATION: Routine annual mammography screening. 1 year F/U This examination should not preclude the clinical evaluation of a suspicious palpable abnormality. This patient's information was entered into a reminder system with a target due date for their next mammogram.
== END 2024-05-03 11:06 | disposition home or self-care (01) ==
LOC: HO.MAMMO 11:05
PROVIDERS: PCP Nurse Practitioner Family; Visit Provider Nurse Practitioner Family
DX: Z12.31 Encounter for screening mammogram for malignant neoplasm of breast (principal)
CPT/HCPCS: 77063; 77067

== ENCOUNTER → 2024-05-03 11:45 | Outpatient (BNV) | payer OTHER, SELFPAY | PROVIDERS: PCP Nurse Practitioner Family; Visit Provider Radiology Diagnostic Radiology | DX: Z12.31 Encounter for screening mammogram for malignant neoplasm of breast (principal) | CPT/HCPCS: 77063; 77067 ==

== ENCOUNTER 2024-05-14 10:02 | Outpatient (AMB) | payer OTHER, SELFPAY ==
[2024-05-14 10:42] VITALS: BP 132/82; BMI 41.5
--- NOTE | 2024-05-14 10:42 | A.OFFVIS_ITS ---
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 Complaining of pelvic pain no associated urinary or GI symptoms, no vaginal discharge or bleeding, no nausea or vomiting. 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 Sacroiliitis Asthma WENDY (obstructive sleep apnea) Morbid obesity Swelling of both lower extremities Afib Disc degeneration, lumbar Cervical pain (neck) Calcaneal spur Benign neoplasm breast skin Bursitis, shoulder Xanthelasma Auditory hallucinations Impaired glucose tolerance Hyperlipidemia Anxiety Depression Adenomatous polyp of colon Esophagitis Hypertensive urgency PAF (paroxysmal atrial fibrillation) Palpitations HTN (hypertension) Dyspepsia GERD (gastroesophageal reflux disease) Surgical History Hx of colonoscopy H/O esophagogastroduodenoscopy (09/01/15) Status post Margarita fundoplication (10/27/12) History of removal of cyst Hx of cholecystectomy History of hysterectomy Family History Father CVD (cardiovascular disease) HTN (hypertension) Diabetes Mother HTN (hypertension) Diabetes CVD (cardiovascular disease) Brother Pacemaker Maternal Grandmother Throat cancer Brother No problems noted. Daughter Hx LEEP (loop electrosurgical excision procedure), cervix, Other Mental health disorder Substance use disorder Social History Household Members: None Housing: House Are you a primary critical care nurse practitioner to a significant other at home: No Alcohol intake: never Patient Tobacco Use Status: Never used Tobacco e-Cigarette/Vaping Use: Never Used Second Hand Smoke Exposure: No Advance Directives Date on File: 03/16/21 Current occupational status: disabled Sexual orientation: Straight/Heterosexual Gender identity: Female Cognitive needs: No Hearing needs: No Vision needs: No Female Reproductive History Menstrual Menopause type: surgical Total pregnancies: 4 Full term: 4 Number of Living Children: 4 Date of Mammogram: 05/03/24 Review of Systems Const All systems reviewed & are unremarkable except as noted in HPI and below Card Reports as per HPI and Reports no additional complaints Resp Reports as per HPI and Reports no additional complaints GI Reports as per HPI and Reports no additional complaints Reports as per HPI Physical Exam Vital Signs: Last Vital Signs BP 132/82 05/14/24 10:42 BMI result Body Mass Index 41.5 Const General: cooperative, healthy appearing and comfortable General: Yes bladder normal to palpation External Female Exam: No lesion Speculum Exam - Vagina: normal appearance of the vagina, normal vaginal discharge and not erythematous Speculum Exam - Cervix: Cervix absent Bimanual exam- vagina & uterus: bladder normal to palpation and uterus absent Bimanual Exam- Adnexa, other: Other (No masses detected) Assessment & Plan Assessment & Plan (1) Well woman exam: Code(s): Z01.419 - Encounter for gynecological examination (general) (routine) without abnormal findings Category: Medical Plan: Co testing not indicated since the patient is status post hysterectomy for benign disease with no history of abnormal Pap smears. Counseled the patient about the recommended dietary allowance of 1200 mg of Calcium & 600 IU of vitamin D. Instructions given the patient to schedule her next screening Mammogram 05/15. The patient is scheduled on 05/21/2024 with GI for screening colonoscopy . The patient was instructed to perform monthly self-breast exams and schedule annual exam in a year. All questions answered and the patient verbalized understanding. (2) Pelvic pain: Code(s): R10.2 - Pelvic and perineal pain Category: Medical Plan: Urine dip done in the office were both negative. pelvic ultrasound ordered. Discussed with the patient the differential diagnosis of pelvic pain including but not limited to adnexal causes, GI the (Irritable bowel syndrome, diverticulitis, others), musculoskeletal, myofascial pain abdominal wall , adhesions, endometriosis, psychological and others causes. Will check results and treat accordingly. All questions answered, the patient verbalized understanding. Instructed the patient to schedule follow-up appointment in 2 weeks Orders: Orders US pelvic and transvaginal Today R10.2 - Pelvic and perineal pain Coding Level of Care Code Est Pt Prev Care 40-64y(42724) Diagnoses Well woman exam Z01.419 Pelvic pain R10.2
== END 2024-05-14 11:19 | disposition home or self-care (01) ==
PROVIDERS: PCP Nurse Practitioner Family; Visit Provider Obstetrics & Gynecology
DX: Z01.419 Encounter for gynecological examination (general) (routine) without abnormal findings (principal); R10.2 Pelvic and perineal pain
CPT/HCPCS: 99396

== ENCOUNTER → 2024-05-14 10:02 | Outpatient (BNVA) | payer OTHER, SELFPAY | PROVIDERS: PCP Nurse Practitioner Family; Visit Provider Obstetrics & Gynecology ==

== ENCOUNTER 2024-05-21 12:40 | Outpatient (REF) | payer OTHER, SELFPAY ==
--- NOTE | ~2024-05-21 | US_ITS ---
EXAMINATION: US PELVIS CLINICAL INFORMATION: Pelvic and perineal pain COMPARISON: CT scan 01/01/2023 TECHNIQUE: Ultrasound of the pelvis is performed using both transabdominal and transvaginal transducers along with Doppler. Transvaginal imaging is performed due to inadequate visualization transabdominally. FINDINGS: The uterus is surgically absent. The ovaries are not seen. There is no free fluid within the cul-de-sac. US/US pelvic and transvaginal IMPRESSION: 1. Prior hysterectomy. 2. The ovaries are not seen.
== END 2024-05-21 12:41 | disposition home or self-care (01) ==
LOC: HO.US 12:40
PROVIDERS: PCP Nurse Practitioner Family; Visit Provider Obstetrics & Gynecology
DX: R10.2 Pelvic and perineal pain (principal)
CPT/HCPCS: 76830; 76856

== ENCOUNTER 2024-05-23 10:16 | Outpatient (AMB) | payer OTHER, SELFPAY ==
--- NOTE | 2024-05-23 10:34 | MHC.OFFVIS ---
Vital Signs 05/23/24 12:06 Height 5 ft 2 in Weight 227 lb BMI 41.5 BP 184/84 H Blood Pressure Location Lt brachial Position Sitting Respiration 16 Pulse 72 Pulse Source Pulse Oximeter Pulse Oximetry (%) 99 Oxygen Delivery Method Room Air Intake Visit Reasons: PILL COUNT Intake Note: Patient comes in for pill count. Reports pain 10. Allergies ibuprofen [IBUPROFEN] Allergy (Mild, Verified 05/23/24 12:07) RASH, hives, hives HPI Comments Details: Nydia is a very pleasant 59 year old female who presents to the office today for follow up chronic pain and chronic opioid therapy management. Patient is prescribed oxycodone 5mg tabs, take one tablet by mouth twice daily as needed for pain. Patient arrived today with the expectation of having 16 pills, she presented 0 pills. This violates the terms of her opioid contract. Patient states she went camping with her daughter and they slept in a tent. Since then she has been suffering and overused her medication. Patient did not contact the office to discuss her pain or potential adjustments in her dosing. She admits understanding that she was taking the medication more than prescribed and that this violates her contract with the office. Per visit with Dr Goldstein 10/28/2021: She came today to start on chronic opioid therapy. We performed opioid risk addiction assessment. She reported PHQ score equal to 12. On the opioid risk addiction question ear she appeared to be with very high score as well. The score on opioid addiction risk was equal to 14. Total score was therefore 26. She is high risk of opioid addiction. She had history of suicide attempt and medication overdose. I was about to start her today on oxycodone 5 b.i.d. with supplementation of the medication with significant doses of Tylenol such is 750 mg p.o. twice a day. I also recommended her wean of off lorazepam which she takes 5 mg b.i.d.. We agreed that I will taper this medications down to her. However she is leaving for [place]. Therefore I will not be able to prescribe her anything at this moment. She would need to miss her 2 weeks pill count if I would prescribe her anything at this moment. Therefore after she will come from [place] I will prescribe her the regimen as above. I will prescribe her also hydroxyzine to decrease the doses of the as a pump and eventually eliminate this medication. ? ? 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 Sacroiliitis Asthma WENDY (obstructive sleep apnea) Morbid obesity Swelling of both lower extremities Afib Disc degeneration, lumbar Cervical pain (neck) Calcaneal spur Benign neoplasm breast skin Bursitis, shoulder Xanthelasma Auditory hallucinations Impaired glucose tolerance Hyperlipidemia Anxiety Depression Adenomatous polyp of colon Esophagitis Hypertensive urgency PAF (paroxysmal atrial fibrillation) Palpitations HTN (hypertension) Dyspepsia GERD (gastroesophageal reflux disease) Surgical History Hx of colonoscopy H/O esophagogastroduodenoscopy (09/01/15) Status post Margarita fundoplication (10/27/12) History of removal of cyst Hx of cholecystectomy History of hysterectomy Family History Father CVD (cardiovascular disease) HTN (hypertension) Diabetes Mother HTN (hypertension) Diabetes CVD (cardiovascular disease) Brother Pacemaker Maternal Grandmother Throat cancer Brother No problems noted. Daughter Hx LEEP (loop electrosurgical excision procedure), cervix, Other Mental health disorder Substance use disorder Social History Household Members: None Housing: House Are you a primary reproductive healthcare assistant to a significant other at home: No Alcohol intake: never Patient Tobacco Use Status: Never used Tobacco e-Cigarette/Vaping Use: Never Used Second Hand Smoke Exposure: No Advance Directives Date on File: 03/16/21 Current occupational status: disabled Sexual orientation: Straight/Heterosexual Gender identity: Female Cognitive needs: No Hearing needs: No Vision needs: No Review of Systems Const All systems reviewed & are unremarkable except as noted in HPI and below Physical Exam Vital Signs: Last Vital Signs Pulse 72 05/23/24 12:06 Resp 16 05/23/24 12:06 BP 184/84 H 05/23/24 12:06 Pulse Ox 99 05/23/24 12:06 Oxygen Delivery Method Room Air 05/23/24 12:06 BMI result Body Mass Index 41.5 General: awake, alert, oriented. Answers questions appropriately. Fully engaged in examination. Skin: warm, dry, intact HEENT: Normocephalic. Hearing intact. Cardiac: External chest normal in appearance. Respiratory: No cough, audible wheezing or stridor. Abdomen: without gross distension. MS: No obvious swelling or deformities. Ambulates with the use of a cane Neurological: Oriented to person, place, time and situation. Thought process intact. Psychiatric: Appropriate mood and affect. Good judgment and insight. Assessment & Plan Assessment & Plan (1) Left hip pain: Code(s): M25.552 - Pain in left hip Category: Medical (2) Neuropathy: Comment: bilateral feet Code(s): G62.9 - Polyneuropathy, unspecified Category: Medical (3) Osteoarthritis of left hip: Code(s): M16.12 - Unilateral primary osteoarthritis, left hip Category: Medical (4) Arthritis of left knee: Code(s): M17.12 - Unilateral primary osteoarthritis, left knee Category: Medical Plan Nydia presented to the office today for chronic opioid management and scheduled pill count. She was short 16 tablets, 8 day supply. This is a direct violation of her opioid contract and therefore results in suspension. Lengthy discussion with patient today regarding this suspension. Suspension form was reviewed and signed. Patient did verbalize understanding of the contract and reported no attempts to contact the office to discuss the overuse of her medications. Per previous visit with Dr. Goldstein: Total risk score was therefore 26. She is high risk of opioid addiction. She had history of suicide attempt and medication overdose. This will result in indefinite suspension from the opioid program A compassion prescription with tapering instructions was sent to the pharmacy Patient was advised that she can continue to do be treated here with interventional options. All questions and concerns have been answered and patient verbalizes understanding. Medications: Changed From oxycodone Compassion Prescription: Take one tab twice daily X 1 week, one tab daily X 1 week then 1/2 tab daily X 8 days. 5 mg PO BID 30 days PRN 25 tabs 0RF pain M46.1 - Sacroiliitis, not elsewhere classified, M54.30 - Sciatica, unspecified side To oxycodone 5 mg orally as directed PRN; Compassion Prescription: Take one tab twice daily X 1 week, one tab daily X 1 week then 1/2 tab daily X 8 days. NEEDED. 30 days 25 tabs 0RF pain M46.1 - Sacroiliitis, not elsewhere classified, M54.30 - Sciatica, unspecified side From oxycodone 5 mg PO BID 30 days PRN 60 tabs 0RF pain M46.1 - Sacroiliitis, not elsewhere classified, M54.30 - Sciatica, unspecified side To oxycodone Compassion Prescription: Take one tab twice daily X 1 week, one tab daily X 1 week then 1/2 tab daily X 8 days. 5 mg PO BID 30 days PRN 25 tabs 0RF pain M46.1 - Sacroiliitis, not elsewhere classified, M54.30 - Sciatica, unspecified side Coding Level of Care Code Est Pt Level 4 (99607) Diagnoses Left hip pain M25.552 Neuropathy G62.9 Osteoarthritis of left hip M16.12 Arthritis of left knee M17.12
[2024-05-23 12:06] VITALS: BP 184/84; PULSE 72; RESP 16; O2SAT 99; BMI 41.5
== END 2024-05-23 11:09 | disposition home or self-care (01) ==
PROVIDERS: PCP Nurse Practitioner Family; Visit Provider Registered Nurse Emergency
DX: M25.552 Pain in left hip (principal); G62.9 Polyneuropathy, unspecified; M16.12 Unilateral primary osteoarthritis, left hip; M17.12 Unilateral primary osteoarthritis, left knee
CPT/HCPCS: 99214

== ENCOUNTER → 2024-05-23 10:16 | Outpatient (BNVA) | payer OTHER, SELFPAY | PROVIDERS: PCP Nurse Practitioner Family; Visit Provider Registered Nurse Emergency | DX: M16.12 Unilateral primary osteoarthritis, left hip (principal); G62.9 Polyneuropathy, unspecified; M17.12 Unilateral primary osteoarthritis, left knee; Z79.891 Long term (current) use of opiate analgesic | CPT/HCPCS: 99212 ==

== ENCOUNTER 2024-06-21 09:52 | Outpatient (AMB) | payer OTHER, SELFPAY ==
--- NOTE | 2024-06-21 10:10 | A.OFFVIS_ITS ---
Vital Signs 06/21/24 10:15 Height 5 ft 2 in Weight 220 lb BMI 40.2 BP 170/88 H Blood Pressure Location Lt brachial Position Sitting Pulse 68 Intake Visit Reasons: pre colonoscopy Intake Note: Patient follow up for and pre colonoscopy screening. Patient feel she is not digestive her food, abd hernia pain, and constipation on and off. 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: No Accompanied by: Self / Same As Patient Allergies ibuprofen [IBUPROFEN] Allergy (Mild, Verified 06/21/24 10:11) RASH, hives, hives Medication List - Last Reconciled 06/21/24 by Mara Burger MD albuterol sulfate 5 mg inhalation Q4H PRN albuterol sulfate 90 mcg/actuation 2 puffs inhalation Q4-6H PRN albuterol sulfate 90 mcg/actuation 2 puffs inhalation Q20M PRN amlodipine 10 mg PO DAILY 90 days aripiprazole 5 mg PO DAILY atorvastatin 40 mg PO DAILY 90 days blood pressure kit-extra large As directed blood sugar diagnostic (Xeround Ultra Test strips) Use to check blood sugar twice daily: fasting blood sugar and a random blood sugar blood-glucose meter (Xeround Ultra2 Meter) Use to check blood sugar twice daily: fasting blood sugar and a random blood sugar buspirone 15 mg PO BID carvedilol 25 mg PO BID cholecalciferol (vitamin D3) 50 mcg PO DAILY clonidine HCl 0.1 mg PO BID 30 days diclofenac sodium 1% (Arthritis Pain (diclofenac)) 4 grams topical QID 30 days dicyclomine 20 mg PO BID PRN docusate sodium 100 mg PO BEDTIME empagliflozin (Jardiance) 10 mg PO DAILY flash glucose scanning reader (Panda SecurityStyle Susu 2 [place]) As directed flash glucose sensor (FreeStyle Susu 2 Sensor kit) test blood sugar 4 times per day fluticasone propionate 110 mcg/actuation 1 puff inhalation BID 30 days humidifiers As directed hydrochlorothiazide 25 mg PO DAILY 30 days hydroxyzine HCl 10 mg PO TID PRN incontinence pad, liner, disp use daily for incont ketoconazole 2% 1 appl topical DAILY lancets (Xeround Delica Lancets) Use to check blood sugar twice daily: fasting blood sugar and a random blood sugar lisinopril 40 mg PO DAILY 90 days melatonin 3 mg PO BEDTIME PRN melatonin 3 mg PO QPM naloxone 4 mg/actuation (Narcan) 4 mg intranasal Q2M PRN omeprazole 20 mg PO BID oxycodone 5 mg orally as directed PRN; Compassion Prescription: Take one tab twice daily X 1 week, one tab daily X 1 week then 1/2 tab daily X 8 days. NEEDED. 30 days rivaroxaban (Xarelto) 20 mg PO DAILY sertraline 100 mg PO DAILY spironolactone 25 mg PO BID tizanidine 4 mg PO TID PRN zolpidem 5 mg PO BEDTIME PRN HPI HPI pre colonoscopy: Details: GI CLINIC VISIT FOR THIS 59-YEAR-OLD LATVIAN-SPEAKING FEMALE FOR RECTAL BLEEDING, COLON POLYPS AND MALAVE'S ESOPHAGUS. PATIENT IS ON XARELTO FOR PAROXYSMAL ATRIAL FIBRILLATION AND IS FOLLOWED BY DR. LIZAMA ?CHRONIC ILLNESSES:?depression, anxiety, hypertension, sleep apnea, asthma, hyperlipidemia, impaired glucose tolerance, GERD with hiatal hernia, gallstones, auditory hallucinations, xanthelasma, bursitis of shoulder, benign neoplasm of skin and breast, chronic low back pain, calcaneal spur, bile salt induced diarrhea ?LABS IN [facility]:?12/14/19 NORMAL CHEM PANEL AND LFTS EXCEPT MILD INCREASE IN ALK P OF 131 ? 10/09 STOOL FOR H PYLORI ANTIGEN WAS NEGATIVE. ?IMAGING STUDIES: 01/01/21 ABDOMINAL US WAS NORMAL: ? LIVER: Normal. The liver is normal in size. The liver contour is normal. Parenchymal echogenicity is normal. No focal hepatic lesion. There is no intrahepatic biliary duct dilatation seen. GALLBLADDER: Surgically absent. COMMON BILE DUCT: Normal in caliber measuring 0.2 cm in diameter. 01/10/20 GASTRIC EMPTYING STUDY SHOWED:? Retention in the stomach at each time interval was: ? 1 hour 59% (normal 37%-90%) ? 2 hours 6% (normal 30%-60%) ? 3 hours 5% ? 4 hours (Not Obtained) (normal 0%-10%) ? IMPRESSION: ? Normal solid food gastric emptying study. ? 08/[address] SCAN SHOWED: ? No evidence for acute abdominal or pelvic inflammatory or infectious processes. ? Small hiatal hernia. ?ENDOSCOPIC STUDIES; 01/26/23 EGD WAS PERFORMED BY DR CALDWELL FOR EVALUATION OF BLACK STOOLS: EGD Findings:? * Esophagus:? Severe esophagitis noted at the GEJ at 34 cm. One ulcer with small clot was seen at 6 o clock position. The ulcer started oozing after the clot was flushed off. A resolution 360 Endoclip was placed for hemostasis. The Z line was at 34 cm. Hiatal hernia was noted with diaphragmatic pinch at 36 cm. * Stomach: Scattered erosions and heme were noted mostly in the body and antrum. Random gastric biopsies were taken to rule out H Pylori infection. * Duodenum: ? A focal area with villous effacement and erythema was noted in the 2nd portion of the duodenum.? Cold forceps biopsies were taken.? Remaining duodenum normal.?EGD Impressions:? * Severe esophagitis with ulcer (endoclip) * Gastritis (biopsy) * Normal duodenum (biopsy)?? Recommendations:?? * Follow biopsy results. Our office will call or send a letter with results within 7-10 days. * ?continue omeprazole 20 mg b.i.d. for at least 8 weeks and then decrease to 20 mg per day.? * Repeat EGD will be scheduled in 8-10 weeks to assess for healing of esophagiti s. * Resume anticoagulation tomorrow. * If H pylori +, patient will be prescribed eradication therapy followed by test of cure. * Avoid NSAIDs. 02/13/21 EGD AND COLONOSCOPY SHOWED:? ESOPHAGUS: Focal esophagitis at GE junction with 1 cms tongue of Malave's - biopsied. Balloon dilation was performed with 19 and 20 mm CRE balloon x 60 seconds at each level. STOMACH: Gastritis and intact fundal wrap on retroflexed exam Colonoscopy Findings:? No polyps were detected. Moderate diverticulosis seen in the left colon Moderate hemorrhoids on retroflexed exam. Plan: Repeat Colonoscopy interval based on path results - in 3 years due to fair prep. Above findings were reviewed with the patient and GERD and diverticulosis handouts were given in the discharge area BIOPSIES SHOWED: A.? Small bowel, biopsy:? Duodenal mucosa within normal limits. B.? Stomach, antrum, biopsy:? Antral-type mucosa with mild chronic inactive inflammation; no Helicobacter organisms seen. C.? Esophagus, biopsy: - Malave esophagus with background moderate chronic active inflammation. - No dysplasia seen. - Chronic esophagitis. 1/2/20 EGD AND FLEXIBLE SIGMOIDOSCOPY SHOWED:? Endoscopy Findings: ? LARYNX: Normal ? ESOPHAGUS: Small hiatal hernia, minimal esophagitis and possible Malave's. ? STOMACH: Gastritis ? DUODENUM: Normal ? Flexible sigmoidoscopy Findings: ? One polyp removed ? Moderate diverticulosis seen in the sigmoid colon ? Moderate hemorrhoids on retroflexed exam - likely source of rectal bleeding. ? Plan: ? Await pathology results ? Patient has an appointment on 11/29/2019 in the GI Clinic with Mara Burger M.D. ? Pt to schedule a Colonoscopy interval based on path results - in 1-2 years if ? polyps are adenomatous and 10 years if polyps are hyperplastic. ? Above findings were reviewed with the patient. ? BIOPSIES SHOWED: ? A. Small bowel, biopsy: Small bowel mucosa with no significant histopathology; ? no villous abnormality identified; no increase in intraepithelial lymphocytes. ? B. Stomach, biopsy: Gastric mucosa with mild chronic, inactive gastritis; ? negative for Helicobacter pylori organisms; negative for intestinal metaplasia; negative for ? dysplasia. ? C. Esophagus, distal, biopsy: Esophagogastric junctional mucosa with moderate ? chronic inflammation and intestinal metaplasia (see Comment); negative for dysplasia; ? squamouS epithelium with reactive features suggestive of reflux disease. ? D. Colon, random, biopsy: Colonic mucosa within normal limits; no evidence of microscopic colitis. ? E. Colon, sigmoid polyp, polypectomy: Tubular adenoma. ? Comment: The findings are consistent with Malave's esophagus in the appropriate clinical/endoscopic setting. ? 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 Had dinner at 6:30 pm yesterday (Had broccoli, aspragus and steak) and feels like she ate today BM can vary between constipation and soft BM Sometimes she has to strain to have a BM. PAST VISITS: Notes intermittent lower cramps lasting for 5 minutes (usually twice a day) Denies rectal bleeding EGD results reviewed. Feels good and denies recent black stools Intentional wt loss of 50 lbs Nausea is better - denies nausea, abd pain or diarrhea. Weight and appetite has been stable. Accompanied by her daughter (works as an MA in wt management at [employer] [place] who interpreted for the pt Sometimes resolves after eating and sometimes persists. Notes heartburn mostly during the day. Has dinner at 5 pm and goes to bed at midnight - sometimes has a late night snack. Denies dysphagia. Abdominal pain is better. Has post prandial diarrhea since her GB surgery. Sometimes notes stinging in the rectum and there can be clear red blood on the TP. EGD and Colonoscopy and bx results were reviewed ? ? ? Denies recurrent abdominal pain. ? ? ? Patient notes improvement in dysphagia since esophageal balloon dilation ? ? ? Constipation has improved since she had her colonoscopy ?Complains of constant blanca-umblical abd pain for the past 3 days. ? ? ? Never had this pain in the past. ? ? ? Pain is 6/10 in intensity and is burning in character. ? ? ? Complains of nausea and has not been eating. ?? ? Vomited yesterday. ?? ? Denies fever or chills or any change in bowel habits.. ?? ? Took pork chops and serbian fries 10 min before the pain started. ? ? ? Tried peptobismol and it did not help the pain. ? Feeling better, diagnosed with COVID infection last month and has recovered. ? Fever and body aches have cleared up ? Denies being constipated or having ongoing rectal bleeding. ? ? ? Having a lot of heartburn -? advised to increase omeprazole to 20 mg twice daily. ? Notes improvement in constipation - BM 1-2 times a day ? Notes some stinging when she uses the bathroom.. ? Denies blanca-anal pain/discomfort. Has not been using any topical agent for hemorrhoids. ? Denies ongoing diarrhea. ? Post prandial fullness after taking 5-6 bites has improved ? Takes 1-2 meals a day depending on her appetite. ? Has gained weight since the Pandemic 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 Sacroiliitis Asthma WENDY (obstructive sleep apnea) Morbid obesity Swelling of both lower extremities Afib Disc degeneration, lumbar Cervical pain (neck) Calcaneal spur Benign neoplasm breast skin Bursitis, shoulder Xanthelasma Auditory hallucinations Impaired glucose tolerance Hyperlipidemia Anxiety Depression Adenomatous polyp of colon Esophagitis Hypertensive urgency PAF (paroxysmal atrial fibrillation) Palpitations HTN (hypertension) Dyspepsia GERD (gastroesophageal reflux disease) Surgical History Hx of colonoscopy H/O esophagogastroduodenoscopy (09/01/15) Status post Margarita fundoplication (10/27/12) History of removal of cyst Hx of cholecystectomy History of hysterectomy Family History Father CVD (cardiovascular disease) HTN (hypertension) Diabetes Mother HTN (hypertension) Diabetes CVD (cardiovascular disease) Brother Pacemaker Maternal Grandmother Throat cancer Brother No problems noted. Daughter Hx LEEP (loop electrosurgical excision procedure), cervix, Other Mental health disorder Substance use disorder Social History Household Members: None Housing: House Are you a primary day care director to a significant other at home: No Alcohol intake: never Patient Tobacco Use Status: Never used Tobacco e-Cigarette/Vaping Use: Never Used Second Hand Smoke Exposure: No Advance Directives Date on File: 03/16/21 Current occupational status: disabled Sexual orientation: Straight/Heterosexual Gender identity: Female Cognitive needs: No Hearing needs: No Vision needs: No Review of Systems Const All systems reviewed & are unremarkable except as noted in HPI and below Physical Exam Vital Signs: Last Vital Signs Pulse 68 06/21/24 10:15 BP 170/88 H 06/21/24 10:15 BMI result Body Mass Index 40.2 General: awake, alert, oriented. Answers questions appropriately. Fully engaged in examination. Skin: warm, dry, intact HEENT: Normocephalic. Hearing intact. Cardiac: External chest normal in appearance. Respiratory: No cough, audible wheezing or stridor. Abdomen: without gross distension. MS: No obvious swelling or deformities. Ambulates with the use of a cane Neurological: Oriented to person, place, time and situation. Thought process intact. Psychiatric: Appropriate mood and affect. Good judgment and insight. Assessment & Plan Assessment & Plan (1) GERD (gastroesophageal reflux disease): Code(s): K21.9 - Gastro-esophageal reflux disease without esophagitis Category: Medical (2) Early satiety: Comment: 12/2019 gastric emptying study was normal Code(s): R68.81 - Early satiety Category: Medical (3) Malave's esophagus without dysplasia: Comment: Repeat EGD in 3 yrs (due 01/2024) Code(s): K22.70 - Malave's esophagus without dysplasia Category: Medical (4) Hemorrhoids, internal, with bleeding: Comment: start psyllium and HC cream Code(s): K64.8 - Other hemorrhoids Category: Medical (5) Elevated alkaline phosphatase level: Code(s): R74.8 - Abnormal levels of other serum enzymes Category: Medical (6) Screening for colon cancer: Code(s): Z12.11 - Encounter for screening for malignant neoplasm of colon Category: Medical (7) Chronic constipation: Code(s): K59.09 - Other constipation Category: Medical Plan 59 year old Eritrean-speaking female with depression, anxiety, hypertension, sleep apnea, asthma, hyperlipidemia, impaired glucose tolerance, GERD with hiatal hernia, auditory hallucinations, xanthelasma, bursitis of shoulder, benign neoplasm of skin and breast, chronic low back pain, calcaneal spur, bile salt induced diarrhea followed in GI for GERD, chronic constipation, history of colon polyps and hx of rectal bleeding - presumably from perianal skin lesions per patient. Patient complained of poor appetite and weight loss and reported a past history of peptic ulcer disease.? Stool test for H pylori antigen was negative PATIENT IS STATUS POST MARGARITA FUNDOPLICATION 2011. 11/08 evaluation with upper endoscopy showed a small hiatal hernia, minimal esophageal and gastritis. Same-day flexible sigmoidoscopy showed moderate sigmoid diverticulosis and internal hemorrhoids and a small tubular adenoma was removed. ?Esophageal biopsies showed presence of Malave's metaplasia.? Patient complains of symptoms of heartburn and was advised to increase omeprazole to 20 mg twice daily. Abdominal ultrasound and a gastric emptying study were normal. Symptoms are likely related to constipation and patient was advised to take MiraLax once daily with improvement in her symptoms Patient complains of periumbilical abdominal pain for the past 3 days associated with nausea and vomiting - now resolved ENDOSCOPIC STUDIES: 03/28/23 EGD SHOWED: ESOPHAGUS: Esophagitis seen on last EGD has healed. GE junction with 1 cms tongue of Malave's - biopsied. STOMACH: Mild gastritis Plan: Await pathology results BIOPSIES SHOWED: Gastroesophageal junction, biopsy: Squamocolumnar mucosa with mild inflammation and intestinal metaplasia; negative for dysplasia (see comment) Comment: These findings are consistent with Malave?s esophagus if the biopsies were taken from above the anatomic gastroesophageal junction. 01/2021 EGD AND COLONOSCOPY WERE PERFORMED: ESOPHAGUS: Focal esophagitis at GE junction with 1 cms tongue of Malave's - biopsied. Balloon dilation was performed with 19 and 20 mm CRE balloon x 60 seconds at eac h level. STOMACH: Gastritis and intact fundal wrap on retroflexed exam Colonoscopy Findings:? No polyps were detected. Moderate diverticulosis seen in the left colon Moderate hemorrhoids on retroflexed exam. Plan:? Repeat Colonoscopy interval based on path results - in 3 years due to fair prep - due on 01/2024. 09/16 - pt is feeling better with resolution of nausea and diarrhea 06/21/24 Had dinner at 6:30 pm yesterday (Had broccoli, aspragus and steak) and feels like she ate today BM can vary between constipation and soft BM Sometimes she has to strain to have a BM. (Of note GES was normal in Dec, 2019) Patient advised to schedule an upper endoscopy with WATS3D(FU of Malave's) and a colonoscopy (FU of polyps and fair prep) She will need to hold Xarelto x 3 days before EGD and colon appt FU in 7 months Medications: New sennosides-docusate sodium 8.6-50 mg (Senna Plus) 2 tab-caps (2 x 8.6-50 mg) PO BEDTIME 60 days 120 caps 3RF K59.09 - Other constipation bisacodyl (Dulcolax (bisacodyl)) Take 2 tablets daily at 12 pm starting 5 the day before colonoscopy 10 mg (2 x 5 mg) PO ONCE 5 days 10 tabs 0RF colon prep polyethylene glycol 3350 (Miralax) Mix Miralax with 64 oz(8 cups) of Crystal light. Take 2 tablets of Dulcolax qt 12 pm. Wait to have your 1st bowel movement, then begin drinking Miralax. Drink a glass of Miralax every 10-15 minutes until you are finished. You will drink at least another 4 cups of clear liquid of your choice over the next 2 hours. Please drink as many clear liquids as possible You may have clear liquids up to four hours before your procedure 17 grams PO DAILY 1 day 238 grams 0RF colon prep Coding Level of Care Code Est Pt Level 4 (70624) Diagnoses GERD (gastroesophageal reflux disease) K21.9 Early satiety R68.81 Malave's esophagus without dysplasia K22.70 Hemorrhoids, internal, with bleeding K64.8 Elevated alkaline phosphatase level R74.8 Screening for colon cancer Z12.11 Chronic constipation K59.09 Time Spent (min) 23
[2024-06-21 10:15] VITALS: BP 170/88; PULSE 68; BMI 40.2
== END 2024-06-21 10:46 | disposition home or self-care (01) ==
PROVIDERS: PCP Nurse Practitioner Family; Visit Provider Internal Medicine Gastroenterology
DX: K21.9 Gastro-esophageal reflux disease without esophagitis (principal); R68.81 Early satiety; K22.70 Barrett's esophagus without dysplasia; K64.8 Other hemorrhoids; R74.8 Abnormal levels of other serum enzymes; Z12.11 Encounter for screening for malignant neoplasm of colon; K59.09 Other constipation
CPT/HCPCS: 99214

== ENCOUNTER → 2024-06-21 09:52 | Outpatient (BNVA) | payer OTHER, SELFPAY | PROVIDERS: PCP Nurse Practitioner Family; Visit Provider Internal Medicine Gastroenterology | DX: R10.2 Pelvic and perineal pain (principal); Z12.11 Encounter for screening for malignant neoplasm of colon; K21.9 Gastro-esophageal reflux disease without esophagitis; K22.70 Barrett's esophagus without dysplasia; K64.8 Other hemorrhoids; K59.09 Other constipation; R68.81 Early satiety; R74.8 Abnormal levels of other serum enzymes | CPT/HCPCS: 99212 ==

== ENCOUNTER 2024-06-21 13:05 | Outpatient (AMB) | payer OTHER, SELFPAY ==
--- NOTE | 2024-06-21 13:10 | A.OFFVIS_ITS ---
Intake Visit Reasons: US follow up Allergies ibuprofen [IBUPROFEN] Allergy (Mild, Verified 06/21/24 13:13) RASH, hives, hives HPI Comments Details: Presenting for pelvic ultrasound follow-up regarding pelvic pain. Pelvic ultrasound showed the following: The uterus is surgically absent. The ovaries are not seen. There is no free fluid within the cul-de-sac. [facility] Medical History Barretts esophagus Hx of flexible sigmoidoscopy Osteoarthritis of left hip Spondylosis without myelopathy or radiculopathy, 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 Sacroiliitis Asthma WENDY (obstructive sleep apnea) Morbid obesity Swelling of both lower extremities Afib Disc degeneration, lumbar Cervical pain (neck) Calcaneal spur Benign neoplasm breast skin Bursitis, shoulder Xanthelasma Auditory hallucinations Impaired glucose tolerance Hyperlipidemia Anxiety Depression Adenomatous polyp of colon Esophagitis Hypertensive urgency PAF (paroxysmal atrial fibrillation) Palpitations HTN (hypertension) Dyspepsia GERD (gastroesophageal reflux disease) Surgical History Hx of colonoscopy H/O esophagogastroduodenoscopy (09/01/15) Status post Margarita fundoplication (10/27/12) History of removal of cyst Hx of cholecystectomy History of hysterectomy Family History Father CVD (cardiovascular disease) HTN (hypertension) Diabetes Mother HTN (hypertension) Diabetes CVD (cardiovascular disease) Brother Pacemaker Maternal Grandmother Throat cancer Brother No problems noted. Daughter Hx LEEP (loop electrosurgical excision procedure), cervix, Other Mental health disorder Substance use disorder Social History Household Members: None Housing: House Are you a primary care analyst to a significant other at home: No Alcohol intake: never Patient Tobacco Use Status: Never used Tobacco e-Cigarette/Vaping Use: Never Used Second Hand Smoke Exposure: No Advance Directives Date on File: 03/16/21 Current occupational status: disabled Sexual orientation: Straight/Heterosexual Gender identity: Female Cognitive needs: No Hearing needs: No Vision needs: No Review of Systems Const All systems reviewed & are unremarkable except as noted in HPI and below Reports as per HPI and Reports no additional complaints GI Reports no additional complaints Reports no additional complaints Assessment & Plan Assessment & Plan (1) Pelvic pain: Code(s): R10.2 - Pelvic and perineal pain Category: Medical Plan: Discussed with the patient the results the ultrasound, ovaries were not seen, recommended CT of the pelvis to rule out any pelvic/adnexal pathology. CT ordered, instructions given the patient to schedule a CT follow-up appointment, all questions answered, the patient verbalized understand Orders: Orders CT pelvis wo/w IV con Today R10.2 - Pelvic and perineal pain Coding Level of Care Code Est Pt Level 3 (45698) Diagnoses Pelvic pain R10.2
== END 2024-06-21 13:26 | disposition home or self-care (01) ==
PROVIDERS: PCP Nurse Practitioner Family; Visit Provider Obstetrics & Gynecology
DX: R10.2 Pelvic and perineal pain (principal)
CPT/HCPCS: 99213

== ENCOUNTER 2024-07-30 10:15 | Outpatient (REF) | payer OTHER, SELFPAY ==
[2024-07-30 13:19] LABS: MANUAL DIFF FLAG NO
[2024-07-30 13:26] LABS: Basophils Absolute Auto 0.1 X10*3/uL (0.0-0.2); Basophils Percent Auto 0.7 % (0-2); Eosinophils Absolute Auto 0.2 X10*3/uL (0.0-0.4); Eosinophils Percent Auto 2.5 % (0-4); Hematocrit 39.2 % (37.0-47.0); Hemoglobin 12.8 g/dl (12.0-16.0); Imm Gran Abs Auto 0.03 X10*3/uL (0.00-0.03); Imm Gran Pct Auto 0.4 % (0.0-0.4); Lymphocytes Absolute Auto 1.6 X10*3/uL (1.2-4.9); Lymphocytes Percent Auto 21.6 % (20-40); Mean Corpuscular HGB Conc 32.7 g/dl (31.0-35.0); Mean Corpuscular Hemoglobin 26.3 pg (27.0-33.0); Mean Corpuscular Volume 80.5 fL (80.0-98.0); Mean Platelet Volume 11.3 fL (9.4-12.3); Monocytes Absolute Auto 0.4 X10*3/uL (0.1-1.2); Monocytes Percent Auto 6.1 % (2-11); Neutrophils Absolute Auto 4.9 x10*3/uL (2.0-8.3); Neutrophils Percent Auto 68.7 % (45-73); Platelet Count 303 X10*3/uL (160-400); Red Blood Count 4.87 X10*6/uL (4.20-5.50); Red Cell Distribution Width 13.5 % (11.0-16.0); White Blood Count 7.2 X10*3/uL (4.8-10.8)
[2024-07-30 13:26] LABS: Appearance Urine Cloudy; Color Urine Yellow; Glucose Urine UA >=1000 mg/dL (Negative); Leukocyte Esterase Urine Small (1+) (Negative); Nitrite Urine Negative (Negative); Specific Gravity - Urine >= 1.030 (1.005-1.025); UMIC TRIGGER UACC YES; Urine Blood Negative (Negative); Urine Ketones Negative (Negative); Urine Protein Trace mg/dL (Neg-Trace)
[2024-07-30 13:29] LABS: Bacteria Urine 4+ (None Seen); Hyaline Casts Urine 0-2 /LPF (0-2); RBC Urine 0-2 /HPF (0-2); Squamous Epithelial Cell Urine >20 /HPF (0-2); UACC Culture Trigger YES
[2024-07-30 13:44] LABS: Alanine Aminotransferase 22 U/L (0-31); Albumin Level 3.8 g/dL (3.5-5.0); Alkaline Phosphatase 117 U/L (39-117); Anion Gap 12 (12-20); Aspartate Amino Transferase 17 U/L (5-31); Bilirubin Total 0.4 mg/dL (0.0-1.0); Blood Urea Nitrogen 24 mg/dL (9-16); Calcium 9.4 mg/dL (8.4-10.2); Carbon Dioxide 23 mmol/L (22-29); Chloride 112 mmol/L (96-108); Cholesterol 154 mg/dL (<200); Estimated Glomerular Filt Rate 39; Glucose Fasting 106 mg/dL (60-99); HDL Cholesterol 44 mg/dL (>40); LDL Cholesterol Calculated 96 mg/dL (<100); Sodium 143 mmol/L (135-145); Total Protein 6.9 g/dL (6.5-8.0); Triglycerides 71 mg/dL (<150)
[2024-07-30 14:16] LABS: Creatinine Urine 165.11 mg/dL; Microalbum/Creatinine Ratio Ur 7.8 ug/mg cr (<30)
== END 2024-07-30 10:16 | disposition home or self-care (01) ==
LOC: HO.HMGCLDS 10:15
PROVIDERS: PCP Nurse Practitioner Family; Referring Provider Obstetrics & Gynecology; Visit Provider Nurse Practitioner Family
DX: E11.9 Type 2 diabetes mellitus without complications (principal); R82.90 Unspecified abnormal findings in urine
CPT/HCPCS: 36415; 80053; 80061; 81001; 82043; 82570; 85025; 87086

== ENCOUNTER 2024-07-31 10:36 | Outpatient (AMB) | payer OTHER, SELFPAY ==
[2024-07-31 10:59] VITALS: BP 130/82; BMI 39.5
--- NOTE | 2024-07-31 10:59 | MHC.OFFVIS ---
Vital Signs 07/31/24 10:59 Height 5 ft 2 in Weight 216 lb BMI 39.5 BP 130/82 Blood Pressure Location Rt brachial Position Sitting Intake Visit Reasons: Follow up WENDY Intake Note: Patient presents for follow up WENDY. Allergies ibuprofen [IBUPROFEN] Allergy (Mild, Verified 07/31/24 11:02) RASH, hives, hives Medication List - Last Reconciled 07/31/24 by SHELDON Alcaraz albuterol sulfate 5 mg inhalation Q4H PRN albuterol sulfate 90 mcg/actuation 2 puffs inhalation Q4-6H PRN albuterol sulfate 90 mcg/actuation 2 puffs inhalation Q20M PRN amlodipine 10 mg PO DAILY 90 days aripiprazole 5 mg PO DAILY atorvastatin 40 mg PO DAILY 90 days bisacodyl (Dulcolax (bisacodyl)) 10 mg (2 x 5 mg) PO ONCE 5 days blood pressure kit-extra large As directed blood sugar diagnostic (Categorical Ultra Test strips) Use to check blood sugar twice daily: fasting blood sugar and a random blood sugar blood-glucose meter (Categorical Ultra2 Meter) Use to check blood sugar twice daily: fasting blood sugar and a random blood sugar buspirone 15 mg PO BID carvedilol 25 mg PO BID cholecalciferol (vitamin D3) 50 mcg PO DAILY clonidine HCl 0.1 mg PO BID 30 days diclofenac sodium 1% (Arthritis Pain (diclofenac)) 4 grams topical QID 30 days dicyclomine 20 mg PO BID PRN 90 days docusate sodium 100 mg PO BEDTIME empagliflozin (Jardiance) 10 mg PO DAILY flash glucose scanning reader (TaggstarStyle Susu 2 [place]) As directed flash glucose sensor (TaggstarStyle Susu 2 Sensor kit) test blood sugar 4 times per day fluticasone propionate 110 mcg/actuation 1 puff inhalation BID 30 days humidifiers As directed hydrochlorothiazide 25 mg PO DAILY 30 days hydroxyzine HCl 10 mg PO TID PRN incontinence pad, liner, disp use daily for incont ketoconazole 2% 1 appl topical DAILY lancets (Categorical Delica Lancets) Use to check blood sugar twice daily: fasting blood sugar and a random blood sugar lisinopril 40 mg PO DAILY 90 days melatonin 3 mg PO BEDTIME PRN melatonin 3 mg PO QPM naloxone 4 mg/actuation (Narcan) 4 mg intranasal Q2M PRN omeprazole 20 mg PO BID oxycodone 5 mg orally as directed PRN; Compassion Prescription: Take one tab twice daily X 1 week, one tab daily X 1 week then 1/2 tab daily X 8 days. NEEDED. 30 days polyethylene glycol 3350 (Miralax) 17 grams PO DAILY 1 day rivaroxaban (Xarelto) 20 mg PO DAILY sennosides-docusate sodium 8.6-50 mg (Senna Plus) 2 tab-caps (2 x 8.6-50 mg) PO BEDTIME 60 days sertraline 100 mg PO DAILY spironolactone 25 mg PO BID tizanidine 4 mg PO TID PRN zolpidem 5 mg PO BEDTIME PRN HPI Comments Details: 59 y/o female patient with hx of asthma and Afib comes for follow up of sleep apnea. PSG sleep study and titration study. The sleep study result was significant for mild degree of sleep apnea with increased severity in REM sleep. Sleep study: AHI was 7/hr, REM AHI was 30/hr and oxygen marge was 83%. On EDWINA titration study, pt's breathing and oxygenation stabilized with CPAP at [id number]. Pt continues to use CPAP at [id number]. She had missed some nights as she was helping care for her mother, and needed to be able to listen out for her mother so could not compa the machine. Pt states CPAP is helping her daytime hypersomnia and sleep. She does not some right medial midback pain and muscle spasm, with movement or taking a deep breathe. Denies SOB. Uses Tizanidine- qhs as it makes her sleepy. [address], [facility] Email: [email or web address] Compliance Report Usage 05/02/2024 - 07/30/2024 Usage days 52/90 days (58%) >= 4 hours 35 days (39%) < 4 hours 17 days (19%) Usage hours 248 hours 36 minutes Average usage (total days) 2 hours 46 minutes Average usage (days used) 4 hours 47 minutes Median usage (days used) 4 hours 33 minutes AirSense 10 AutoSet Serial number [id number] Mode CPAP Set pressure 12 cmH2O EPR Fulltime EPR level 2 Therapy Leaks - L/min Median: 19.1 95th percentile: 48.6 Maximum: 61.4 Events per hour AI: 0.5 HI: 0.2 AHI: 0.7 Apnea Index Central: 0.2 Obstructive: 0.2 Unknown: 0.0 RERA Index 0.1 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 Sacroiliitis Asthma WENDY (obstructive sleep apnea) Morbid obesity Swelling of both lower extremities Afib Disc degeneration, lumbar Cervical pain (neck) Calcaneal spur Benign neoplasm breast skin Bursitis, shoulder Xanthelasma Auditory hallucinations Impaired glucose tolerance Hyperlipidemia Anxiety Depression Adenomatous polyp of colon Esophagitis Hypertensive urgency PAF (paroxysmal atrial fibrillation) Palpitations HTN (hypertension) Dyspepsia GERD (gastroesophageal reflux disease) Surgical History Hx of colonoscopy H/O esophagogastroduodenoscopy (09/01/15) Status post Margarita fundoplication (10/27/12) History of removal of cyst Hx of cholecystectomy History of hysterectomy Family History Father CVD (cardiovascular disease) HTN (hypertension) Diabetes Mother HTN (hypertension) Diabetes CVD (cardiovascular disease) Brother Pacemaker Maternal Grandmother Throat cancer Brother No problems noted. Daughter Hx LEEP (loop electrosurgical excision procedure), cervix, Other Mental health disorder Substance use disorder Social History Household Members: None Housing: House Are you a primary day care center director to a significant other at home: No Alcohol intake: never Patient Tobacco Use Status: Never used Tobacco e-Cigarette/Vaping Use: Never Used Second Hand Smoke Exposure: No Advance Directives Date on File: 03/16/21 Current occupational status: disabled Sexual orientation: Straight/Heterosexual Gender identity: Female Cognitive needs: No Hearing needs: No Vision needs: No Physical Exam Vital Signs: Last Vital Signs BP 130/82 07/31/24 10:59 BMI result Body Mass Index 39.5 Const General: cooperative and no acute distress Orientation/consciousness: patient oriented x3 Resp Effort & Inspection: normal respiratory effort and able to speak in complete sentences Auscultation: clear to auscultation bilaterally Back/Spine/Pelvis Other: no palpable right mid-back tenderness. Neuro General: patient oriented x3 Cranial nerves: Yes CN's II-XII intact bilaterally Cognition (Neuro): normal cognition Psych Appearance: grossly normal Mental Status: mental status grossly normal Speech and movement: Normal speech and movement present Affect: normal affect Attitude: cooperative Assessment & Plan Assessment & Plan (1) Sleep apnea: Comment: Mild degree of sleep apnea with increased severity in REM. The AHI was 7/hr, REM AHI was 30/hr and oxygen marge was 83% Code(s): G47.30 - Sleep apnea, unspecified Category: Medical Qualifiers: Sleep apnea type: obstructive Qualified Code(s): G47.33 - Obstructive sleep apnea (adult) (pediatric) (2) Muscle spasm: Code(s): M62.838 - Other muscle spasm Category: Medical Plan Continue CPAP at [id number], w/ goal of using nightly > 4 hrs, as pt has had good clinical effect from use w/ good reduction in AHI. Stressed CPAP compliance. Change and clean PAP supplies routinely. For right mid-back muscle spasm- Trial Mag Ox 400mg qhs. Continue Tizanidine. Pt to follow-up in 6 months or sooner prn. Medications: New magnesium oxide may hold for loose stools 400 mg PO BEDTIME 30 days 30 tabs 6RF Coding Level of Care Code Est Pt Level 3 (28642) Diagnoses Obstructive sleep apnea syndrome G47.33 Sleep apnea type: obstructive Muscle spasm M62.838
== END 2024-07-31 11:33 | disposition home or self-care (01) ==
PROVIDERS: PCP Nurse Practitioner Family; Visit Provider Nurse Practitioner Family
DX: G47.33 Obstructive sleep apnea (adult) (pediatric) (principal); M62.838 Other muscle spasm
CPT/HCPCS: 99213

== ENCOUNTER → 2024-07-31 10:36 | Outpatient (BNVA) | payer OTHER, SELFPAY | PROVIDERS: PCP Nurse Practitioner Family; Visit Provider Nurse Practitioner Family | DX: G47.33 Obstructive sleep apnea (adult) (pediatric) (principal); M62.838 Other muscle spasm; Z99.89 Dependence on other enabling machines and devices | CPT/HCPCS: 99212 ==

== ENCOUNTER 2024-08-08 08:09 | Outpatient (AMB) | payer OTHER, SELFPAY ==
--- NOTE | 2024-08-08 08:12 | MHC.PC.OV ---
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: No Accompanied by: Self / Same As Patient Allergies ibuprofen [IBUPROFEN] Allergy (Mild, Verified 08/08/24 08:49) RASH, hives, hives Medication List - Last Reconciled 08/08/24 by Alfredo Massey, SURGICAL INSTRUMENT MECHANIC- albuterol sulfate 5 mg inhalation Q4H PRN albuterol sulfate 90 mcg/actuation 2 puffs inhalation Q20M PRN amlodipine 10 mg PO DAILY 90 days aripiprazole 5 mg PO DAILY atorvastatin 40 mg PO DAILY 90 days blood pressure kit-extra large As directed blood sugar diagnostic (Sympoz (dba Craftsy) Ultra Test strips) Use to check blood sugar twice daily: fasting blood sugar and a random blood sugar blood-glucose meter (Sympoz (dba [employer]sy) Ultra2 Meter) Use to check blood sugar twice daily: fasting blood sugar and a random blood sugar buspirone 15 mg PO BID carvedilol 25 mg PO BID cholecalciferol (vitamin D3) 50 mcg PO DAILY clonidine HCl 0.1 mg PO BID 30 days diclofenac sodium 1% (Arthritis Pain (diclofenac)) 4 grams topical QID 30 days dicyclomine 20 mg PO BID PRN 90 days docusate sodium 100 mg PO BEDTIME empagliflozin (Jardiance) 10 mg PO DAILY flash glucose scanning reader (Stazoo.comStyle Susu 2 [place]) As directed flash glucose sensor (FreeStyle Susu 2 Sensor kit) test blood sugar 4 times per day fluticasone propionate 110 mcg/actuation 1 puff inhalation BID 30 days humidifiers As directed hydrochlorothiazide 25 mg PO DAILY 30 days hydroxyzine HCl 10 mg PO TID PRN incontinence pad, liner, disp use daily for incont ketoconazole 2% 1 appl topical DAILY lancets (Sympoz (dba Craftsy) Delica Lancets) Use to check blood sugar twice daily: fasting blood sugar and a random blood sugar lisinopril 40 mg PO DAILY 90 days magnesium oxide 400 mg PO BEDTIME 30 days melatonin 3 mg PO QPM naloxone 4 mg/actuation (Narcan) 4 mg intranasal Q2M PRN omeprazole 20 mg PO BID rivaroxaban (Xarelto) 20 mg PO DAILY sennosides-docusate sodium 8.6-50 mg (Senna Plus) 2 tab-caps (2 x 8.6-50 mg) PO BEDTIME 60 days sertraline 100 mg PO DAILY spironolactone 25 mg PO BID tizanidine 4 mg PO TID PRN zolpidem 5 mg PO BEDTIME PRN Tobacco use date assessed: 04/23/24 Dental Screening Dental Screen Date: 04/23/24 HPI 4 month follow up HPI Details Pt is a diabetic, on an JELANI and a statin. A1C in office today is 6.9. Microalbumin is up to date. Denies polyuria, polydipsia, does report neuropathy (mostly at night). Pt denies any signs and symptoms of hypoglycemia and does know how to correct it. Will start gabapentin 100mg for neuropathy. Eye exam is up to date. [facility] Medical History Barretts esophagus Hx of flexible sigmoidoscopy Osteoarthritis of left hip Spondylosis without myelopathy or radiculopathy, 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 Sacroiliitis Asthma WENDY (obstructive sleep apnea) Morbid obesity Swelling of both lower extremities Afib Disc degeneration, lumbar Cervical pain (neck) Calcaneal spur Benign neoplasm breast skin Bursitis, shoulder Xanthelasma Auditory hallucinations Impaired glucose tolerance Hyperlipidemia Anxiety Depression Adenomatous polyp of colon Esophagitis Hypertensive urgency PAF (paroxysmal atrial fibrillation) Palpitations HTN (hypertension) Dyspepsia GERD (gastroesophageal reflux disease) Surgical History Hx of colonoscopy H/O esophagogastroduodenoscopy (09/01/15) Status post Margarita fundoplication (10/27/12) History of removal of cyst Hx of cholecystectomy History of hysterectomy Family History Father CVD (cardiovascular disease) HTN (hypertension) Diabetes Mother HTN (hypertension) Diabetes CVD (cardiovascular disease) Brother Pacemaker Maternal Grandmother Throat cancer Brother No problems noted. Daughter Hx LEEP (loop electrosurgical excision procedure), cervix, Other Mental health disorder Substance use disorder Social History Household Members: None Housing: House Are you a primary emergency care attendant to a significant other at home: No Alcohol intake: never Patient Tobacco Use Status: Never used Tobacco e-Cigarette/Vaping Use: Never Used Second Hand Smoke Exposure: No Advance Directives Date on File: 03/16/21 Current occupational status: disabled Sexual orientation: Straight/Heterosexual Gender identity: Female Cognitive needs: No Hearing needs: No Vision needs: No Questionnaire PHQ-9 Over the last 2 weeks, how often have you been bothered by any of the following problems? 1. Little interest or pleasure in doing things: several days 2. Feeling down, depressed, or hopeless: several days 3. Trouble falling or staying asleep, or sleeping too much: more than half the days 4. Feeling tired or having little energy: several days 5. Poor appetite or overeating: several days 6. Feeling bad about yourself - or that you are a failure or have let yourself or your family down: several days 7. Trouble concentrating on things, such as reading the newspaper or watching television: several days 8. Moving or speaking so slowly that other people could have noticed. Or the opposite - being so fidgety or restless that you have been moving around a lot more than usual: not at all 9. Thoughts that you would be better off or of hurting yourself in some way: not at all Total score: 8 Source: Developed by Drs. Leonardo Grant, Philly Velasquez, Jose Ramon Poon and colleagues, with an educational gifty from [employer]. Thrive Questionnaire Date Thrive assessed: 04/23/24 I am a: Patient What is your living situation today?: I have a steady place to live Within the past 12 months, did the food you bought not last and you didn't have the money to get more?: I choose not to answer this question Within the past 12 months, did you worry whether your food would run out before you got money to buy more?: Never true Do you have trouble paying for medicines?: No Do you have trouble getting transportation to medical appointments?: No Do you have trouble paying your heating and electricity bill?: No Do you have trouble taking care of your child, family member or friend?: No Do you have trouble with day-to-day activities such as bathing, preparing meals, shopping, managing finances, etc.?: Yes Are you interested in more education?: No Please select the resources that you would like help with: None Currently or been in a relationship where the following occur: I choose not to answer THRIVE Score: 0 AUDIT C Alcohol Use Questionnaire (AUDIT-C) 1. How often do you have a drink containing alcohol?: Never Total Score: 0 DION-7 AMB Questionnaire DION-7 Date DION - 7 assessed: 04/23/24 Feeling nervous, anxious, or on edge: 1 = Several days Not being able to stop or control worryin = Several days Worrying too much about different things: 1 = Several days Trouble relaxin = Several days Being so restless that it is hard to sit still: 1 = Several days Becoming easily annoyed or irritable: 2 = More than half the days Feeling afraid as if something awful might happen: 1 = Several days Total DION-7 score (0-4 normal; 5-9 mild; 10-14 moderate; 15-21 severe): 8 Source: Developed by Drs. Leonardo Grant, Philly Velasquez, Jose Ramon Poon and colleagues, with an educational gifty from [employer]. Review of Systems Const Reports as per HPI Physical exam (Primary Care) Vital Signs: Last Vital Signs Pulse 62 08/08/24 08:16 BP 130/84 08/08/24 08:16 Pulse Ox 97 08/08/24 08:16 BMI result Body Mass Index 40.1 Tobacco/Smoking Status: Tobacco use Status Tobacco use date assessed 04/23/24 08/08/24 08:13 Patient Tobacco Use Status Never used Tobacco 08/08/24 08:13 e-Cigarette/Vaping Use Never Used 08/08/24 08:13 PHQ-9: PHQ-9 Score PHQ-9: Total score 8 08/08/24 08:35 Thrive Assessment: Date of Thrive Assessment Date Thrive assessed 04/23/24 08/08/24 08:13 Currently or been in a relationship where the following occur: I choose not to answer Const General: cooperative Nutritional Appearance: obese Orientation/consciousness: patient oriented x3 Resp Effort & Inspection: normal respiratory effort Auscultation: clear to auscultation bilaterally Cardio Rate: regular rate Rhythm: regular rhythm Heart sounds: S1 normal heart sound present and S2 normal heart sound present Neuro General: patient oriented x3 Extrem Other: bilat feet: + sensation with use of monofilament, feet intact Psych Appearance: grossly normal Mental Status: mental status grossly normal Speech and movement: Normal speech and movement present Affect: normal affect Attitude: cooperative Thought process: Normal thought process present Thought content: Normal thought content present Insight: Good insight present (Psych) Judgement: Good judgement present (Psych) Results AMB Hemoglobin A1c AMB Hemoglobin A1c 6.9 % Last Edit by Cezar Guthrie CMA on 08/08/24 08:29 Results Reviewed Results Reviewed: Laboratory Last Values Hgb A1c (Clinic) 6.9 % (4.0-6.0) H 08/08/24 08:22 Assessment and Plan Assessment & Plan (1) Neuropathy: Comment: bilateral feet Code(s): G62.9 - Polyneuropathy, unspecified Plan: starting gabapentin 100mg at night (2) Diabetes: Code(s): E11.9 - Type 2 diabetes mellitus without complications Plan: controlled Plan The patient agreed to the use of a medical technologist chemistry for this encounter. Scribed for [employer] by Anyi Reeves medical technologist chemistry, on 08/08/2024 at 08:35 EST. Orders: Orders AMB Hemoglobin A1c Today Z13.9 - Encounter for screening, unspecified Medications: New gabapentin 100 mg PO BEDTIME 30 days 30 caps 2RF Coding Level of Care Code Est Pt Level 3 (04461) Diagnoses Neuropathy G62.9 Diabetes E11.9
[2024-08-08 08:16] VITALS: BP 130/84; PULSE 62; O2SAT 97; BMI 40.1
== END 2024-08-08 08:43 | disposition home or self-care (01) ==
PROVIDERS: PCP Nurse Practitioner Family; Visit Provider Nurse Practitioner Family
DX: G62.9 Polyneuropathy, unspecified (principal); E11.9 Type 2 diabetes mellitus without complications; Z13.9 Encounter for screening, unspecified

== ENCOUNTER → 2024-08-08 08:09 | Outpatient (BNVA) | payer OTHER, SELFPAY | PROVIDERS: PCP Nurse Practitioner Family; Visit Provider Nurse Practitioner Family | DX: E11.9 Type 2 diabetes mellitus without complications (principal); G62.9 Polyneuropathy, unspecified; Z79.84 Long term (current) use of oral hypoglycemic drugs | CPT/HCPCS: 83036; 99212 ==

== ENCOUNTER 2024-09-09 13:49 | Emergency (ER) | payer OTHER, SELFPAY ==
--- NOTE | ~2024-09-09 | XR_ITS ---
EXAMINATION: XR CHEST CLINICAL INFORMATION: Chest pain COMPARISON: 04/03/2024 TECHNIQUE: 2 views of the chest were obtained. FINDINGS: No significant abnormality is noted involving the heart, lungs, mediastinum, bony thorax or soft tissues. XR/XR chest 2V IMPRESSION: Unremarkable examination. Electronically signed by: Eulalio Corley MD 09/09/2024 04:18 PM EDT RP
--- NOTE | 2024-09-09 13:51 | ED.GENADULT ---
HPI - General Adult General Chief complaint: Headache Stated complaint: Headache/Lung pain when laying down Time Seen by Provider: 09/09/24 16:14 Source: patient Mode of arrival: ambulatory Limitations: no limitations History of Present Illness ED Provider: Dr. María Rodriguez HPI narrative: Patient comes to the emergency room complaining of headache for 3 days, pain on both parts of the back especially when lying down or taking deep breaths. Patient has been using her inhaler with more than usual. At this time, patient states that she still has a headache, no shortness of breath, no back pain unless she lays down. Denies chest pain. Patient states that she took Aleve approximately 48 hours ago Related Data Home Medications ?Medication ?Instructions ?Recorded ?Confirmed aripiprazole 5 mg tablet 5 mg PO DAILY 08/23/20 08/08/24 buspirone 15 mg tablet 15 mg PO BID 08/23/20 08/08/24 spironolactone 25 mg tablet 25 mg PO BID 08/23/20 08/08/24 sertraline 100 mg tablet 100 mg PO DAILY 05/26/21 08/08/24 naloxone 4 mg/actuation nasal 4 mg intranasal Q2M PRN as directed 04/28/22 08/08/24 spray (Narcan) zolpidem 5 mg tablet 5 mg PO BEDTIME PRN Sleep 06/10/22 08/08/24 melatonin 3 mg tablet 3 mg PO QPM 07/18/23 08/08/24 carvedilol 25 mg tablet 25 mg PO BID 12/14/23 08/08/24 Previous Rx's ?Medication ?Instructions ?Recorded blood pressure kit-extra large #1 ea 01/12/21 docusate sodium 100 mg capsule 100 mg PO BEDTIME #30 caps 05/08/21 albuterol sulfate 2.5 mg/0.5 mL 5 mg inhalation Q4H PRN shortness 09/23/21 solution for nebulization of breath or wheezing #30 ea diclofenac sodium 1 % topical gel 4 g topical QID 30 days #100 grams 12/09/21 (Arthritis Pain (diclofenac)) clonidine HCl 0.1 mg tablet 0.1 mg PO BID 30 days #60 tabs 04/12/22 incontinence pad, liner, disp #39 ea 04/12/22 hydrochlorothiazide 25 mg tablet 25 mg PO DAILY 30 days #30 tabs 04/29/22 fluticasone propionate 110 1 puff inhalation BID 30 days #12 06/02/22 mcg/actuation HFA aerosol inhaler grams blood-glucose meter (OneTouch #1 ea 02/11/23 Ultra2 Meter) lancets 33 gauge (OneTouch Delica #100 ea 03/01/23 Lancets) hydroxyzine HCl 10 mg tablet 10 mg PO TID PRN for itch #90 tabs 06/15/23 ketoconazole 2 % topical cream 1 appl topical DAILY #30 grams 07/18/23 flash glucose scanning reader #1 ea 09/28/23 (FreeStyle Susu 2 [place]) flash glucose sensor (FreeStyle #2 ea 09/28/23 Susu 2 Sensor kit) humidifiers #1 ea 11/02/23 tizanidine 4 mg tablet 4 mg PO TID PRN for pain #270 tabs 11/23/23 blood sugar diagnostic (OneTouch #100 ea 12/23/23 Ultra Test strips) atorvastatin 40 mg tablet 40 mg PO DAILY 90 days #90 tabs 01/22/24 cholecalciferol (vitamin D3) 50 50 mcg PO DAILY #90 caps 01/22/24 mcg (2,000 unit) capsule omeprazole 20 mg capsule,delayed 20 mg PO BID #180 caps 02/27/24 release rivaroxaban 20 mg tablet (Xarelto) 20 mg PO DAILY #90 tabs 03/01/24 albuterol sulfate 90 mcg/actuation 2 puff inhalation Q20M PRN 04/03/24 aerosol inhaler shortness of breath or wheezing #8.5 grams sennosides 8.6 mg-docusate sodium 2 tab-cap (2 x 8.6-50 mg) PO 06/21/24 50 mg capsule (Senna Plus) BEDTIME 60 days #120 caps dicyclomine 20 mg tablet 20 mg PO BID PRN for cramps 90 07/18/24 days #180 tabs empagliflozin 10 mg tablet 10 mg PO DAILY #90 tabs 07/21/24 (Jardiance) amlodipine 10 mg tablet 10 mg PO DAILY 90 days #90 tabs 07/30/24 lisinopril 40 mg tablet 40 mg PO DAILY 90 days #90 tabs 07/30/24 magnesium oxide 400 mg (241.3 mg 400 mg PO BEDTIME 30 days #30 tabs 07/31/24 magnesium) tablet gabapentin 100 mg capsule 100 mg PO BEDTIME 30 days #30 caps 08/08/24 Allergies Allergy/AdvReac Type Severity Reaction Status Date / Time ibuprofen [IBUPROFEN] Allergy Mild RASH, Verified 09/09/24 13:54 hives, hives Review of Systems Review of Systems: Constitutional : No Weight loss, No Fever, No Chills, No Night Sweats, No Fatigue, No Malaise ENT/Mouth : No Hearing loss, No Ear Pain, No Nasal Congestion, No Sinus Pain, No Hoarseness, No sore throat, No Rhinorrhea, No Swallowing Difficulty Eyes: No Eye Pain, No Swelling, No Redness, No Foreign Body, No Discharge, No Vision Changes Cardiovascular : No Chest Pain, No SOB, No Dyspnea on Exertion, No Orthopnea, No Edema, No Palpitations Respiratory : No Cough, No Sputum, intermittent Wheezing, No Smoke Exposure, No Dyspnea, complaining of mild bilateral back pain/ lung pain with deep breaths Gastrointestinal : No Nausea, No Vomiting, No Diarrhea, No Constipation, No abdominal Pain, No Hematochezia, No Melena Genitourinary : no irregular bleeding, No Dysuria, No Urinary Frequency, No Hematuria, No Urinary Incontinence, No Urgency, No Flank Pain, No Urinary Flow Changes, No Hesitancy Musculoskeletal : No joint pain, No Myalgias, No Joint Swelling Skin : No Skin Lesions, No rash Neuro : No Weakness, No Numbness, No Paresthesias, No Loss of Consciousness, No Dizziness, complaining of Headache Psych : No Anxiety/Panic, No Depression, No SI/HI/AH/VH, No Social Issues, Heme/Lymph: No Bruising, No Bleeding,No Lymphadenopathy Endocrine : No Polyuria, No Polydipsia, No Temperature Intolerance PMFSH Past Medical History Medical History Barretts esophagus Hx of flexible sigmoidoscopy Osteoarthritis of left hip Spondylosis without myelopathy or radiculopathy, 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 Sacroiliitis Asthma WENDY (obstructive sleep apnea) Morbid obesity Swelling of both lower extremities Afib Disc degeneration, lumbar Cervical pain (neck) Calcaneal spur Benign neoplasm breast skin Bursitis, shoulder Xanthelasma Auditory hallucinations Impaired glucose tolerance Hyperlipidemia Anxiety Depression Adenomatous polyp of colon Esophagitis Hypertensive urgency PAF (paroxysmal atrial fibrillation) Palpitations HTN (hypertension) Dyspepsia GERD (gastroesophageal reflux disease) Surgical History Hx of colonoscopy H/O esophagogastroduodenoscopy (09/01/15) Status post Margarita fundoplication (10/27/12) History of removal of cyst Hx of cholecystectomy History of hysterectomy Family History Family History Father CVD (cardiovascular disease) HTN (hypertension) Diabetes Mother HTN (hypertension) Diabetes CVD (cardiovascular disease) Brother Pacemaker Maternal Grandmother Throat cancer Brother No problems noted. Daughter Hx LEEP (loop electrosurgical excision procedure), cervix, Other Mental health disorder Substance use disorder Social History Social History Household Members: None Housing: House Are you a primary healthcare or medical to a significant other at home: No Alcohol intake: never Patient Tobacco Use Status: Never used Tobacco e-Cigarette/Vaping Use: Never Used Second Hand Smoke Exposure: No Advance Directives: No Advance Directives Information Provided: Yes Advance Directives Date on File: 03/16/21 Current occupational status: disabled Sexual orientation: Straight/Heterosexual Gender identity: Female Cognitive needs: No Hearing needs: No Vision needs: No Physical Exam ED Vital Signs: Vital Signs - 24 hr 09/09/24 13:52 09/09/24 16:46 09/09/24 18:02 Temperature 97 F 97.8 F Pulse Rate 66 68 Respiratory Rate 18 16 17 Blood Pressure 137/62 128/61 Pulse Oximetry 98 96 Oxygen Delivery Method Room Air Room Air BMI result Body Mass Index 40.2 Const Other: Appearance: Alert. Oriented X3. No acute distress. Eyes: Pupils equal, round and reactive to light. ENT: Pharynx normal. Neck: Normal inspection. Neck supple. No lymph nodes noted. No crepitus CVS: Normal heart rate and rhythm. Pulses normal. Normal S1 and S2 Respiratory: No respiratory distress. Breath sounds normal. No Wheezing. No rales Abdomen: Soft and nontender. No rigidity. No distention. Skin: Skin warm and dry. Normal skin color. Normal skin turgor. Extremities: No lower extremity edema. No Lacerations. No Rash Neuro: Oriented X 3. No motor deficit. No sensory deficit. Moving all extremities. No slurred speech. CN 2 through 12 grossly intact Psych: calm, cooperative, normal affect Course Course Course Narrative: This is a Rapid Medical Examination (RME) performed by Hal Hartman PA-C in triage. Full HPI, ROS, assessment and treatment plan per primary provider in the Main ED. 59 yo female hx of atrial fibrillation on Xarelto, asthma, depression, esophagitis, GERD, hypertension, hyperlipidemia, WENDY on CPAP here for eval of posterior headache x3 days. assoc lung pain and sob when lying down. using inhaler and nebs at home with minimal relief. + lungs clear. exam nonfocal. Plan: labs, cxr, viral swabs, ekg Medications Administered Discontinued Medications Generic Name Dose Route Start Last Admin Trade Name Freq PRN Reason Stop Dose Admin Sodium Chloride 1,000 mls @ 999 mls/hr 09/09/24 16:27 09/09/24 18:51 Ns IVCONT 09/09/24 17:27 Infused .Q1H1M ONE Infusion Metoclopramide HCl 10 mg 09/09/24 16:27 09/09/24 16:46 Metoclopramide Hcl 10 Mg/2 Ml Vial IVPUSH 09/09/24 16:28 10 mg ONCE ONE Administration Morphine Sulfate 2 mg 09/09/24 16:27 09/09/24 16:46 Morphine Sulfate 2 Mg/Ml Cartridge IVPUSH 09/09/24 16:28 2 mg ONCE ONE Administration Protocol Prednisone 60 mg 09/09/24 16:29 09/09/24 16:46 Prednisone 20 Mg Tablet PO 09/09/24 16:30 60 mg ONCE ONE Administration Medical Decision Making Medical Decision Making [facility] Narrative: my interpretation of labs: Hematology within normal limits, chemistry shows a creatinine of 1.6 - patient receiving IV fluids, for the headache morphine 2 mg IV, Reglan, patient is on Xarelto ( avoiding NSAIDs) - patient is neurologically intact - I discussed the labs with the patient, patient instructed to follow-up with her PCP - patient well-appearing, ambulating in the ED, steady gait, vitals normal - patient's creatinine improved to 1.47 after fluids, patient instructed to drink more fluids p.o. and follow-up wi Differential Diagnosis Differential Diagnoses: The differential diagnosis associated with the presentation includes ( pleurisy, pneumonia, asthma, RUTH) Admission/Observation Consideration of admission/observation: Escalation of care including admission/observation considered ( given patient's labs, observation was considered) Lab Data MDM Lab Attestation statement: I reviewed the patient's lab results. 09/09/24 14:07 09/09/24 18:49 Labs: Lab Results 09/09/24 09/09/24 Range/Units 14:07 18:49 WBC 6.8 (4.8-10.8) X10*3/uL RBC 4.97 (4.20-5.50) X10*6/uL Hgb 13.0 (12.0-16.0) g/dl Hct 39.1 (37.0-47.0) % MCV 78.7 L (80.0-98.0) fL MCH 26.2 L (27.0-33.0) pg MCHC 33.2 (31.0-35.0) g/dl RDW 14.5 (11.0-16.0) % Plt Count 273 (160-400) X10*3/uL MPV 10.7 (9.4-12.3) fL Immature Gran % (Auto) 0.4 (0.0-0.4) % Neut % (Auto) 63.9 (45-73) % Lymph % (Auto) 25.8 (20-40) % [place] % (Auto) 6.7 (2-11) % Eos % (Auto) 2.5 (0-4) % Baso % (Auto) 0.7 (0-2) % Lymph # (Auto) 1.7 (1.2-4.9) X10*3/uL [place] # (Auto) 0.5 (0.1-1.2) X10*3/uL Eos # (Auto) 0.2 (0.0-0.4) X10*3/uL Baso # (Auto) 0.1 (0.0-0.2) X10*3/uL Abs Immat Gran (auto) 0.03 (0.00-0.03) X10*3/uL Absolute Neuts (auto) 4.3 (2.0-8.3) x10*3/uL Absolute Nucleated RBC 0.000 (0.0-0.012) X10*3/uL Nucleated RBC % (auto) 0.0 (0.0-0.2) /100WBC PT 14.3 H (10.9-12.4) SEC INR 1.2 H (0.9-1.1) Sodium 142 142 (135-145) mmol/L Potassium 3.9 4.2 (3.3-5.1) mmol/L Chloride 109 H 114 H (96-108) mmol/L Carbon Dioxide 23 18 L (22-29) mmol/L Anion Gap 14 14 (12-20) BUN 27 H 24 H (9-16) mg/dL Creatinine 1.60 H 1.47 H (0.5-1.4) mg/dL Estim Creat Clear Calc 41.2 44.9 Estimated GFR 33 36 Random Glucose 113 168 H (60-115) mg/dL Calcium 9.4 8.2 L D (8.4-10.2) mg/dL Magnesium 1.7 (1.6-2.6) mg/dL Total Bilirubin 0.5 (0.0-1.0) mg/dL AST 17 (5-31) U/L ALT 19 (0-31) U/L Alkaline Phosphatase 106 (39-117) U/L Troponin I High Sens 3.9 (<3.5-17.0) ng/L B-Natriuretic Peptide 36 (<100) pg/mL Total Protein 6.9 (6.5-8.0) g/dL Albumin 3.8 (3.5-5.0) g/dL Influenza Type A (PCR) NEGATIVE (Negative) Influenza Type B (PCR) NEGATIVE (Negative) RSV RNA Qual (PCR) NEGATIVE (Negative) SARS-CoV-2 RNA (RT-PCR) NEGATIVE (Negative) Independent Interpretation I performed an independent interpretation of an: Plain X-Ray Radiology Impression Discussion of test interpretation with radiology: I have reviewed the radiologist's reading. Radiologist Impression: No significant abnormality is noted involving the heart, lungs, mediastinum, bony thorax or soft tissues. XR/XR chest 2V IMPRESSION: Unremarkable examination. Critical Care Time Critical Care Time Critical Care Time: Yes Total Critical Care Time: 30 Attestation: I have personally provided critical care time. Time includes review of lab data, radiology results, discussion with consultants, and monitoring for potential decompensation. Intervention performed as documented. Discharge Plan Discharge Clinical Impression: Headache, RUTH (acute kidney injury), Acute viral syndrome Patient Disposition: Home, Self-Care Instructions: Acute Headache (DC), Acute Kidney Injury (DC), Viral Syndrome (ED) Prescriptions: No Action (DME) incontinence pad, liner, disp Pad See Rx Instructions .Route Qty: 39 0RF Rx Instructions: use daily for incont hydrochlorothiazide 25 mg tablet 25 mg PO DAILY 30 Days Qty: 30 2RF fluticasone propionate 110 mcg/actuation HFA aerosol inhaler 1 puff inhalation BID 30 Days Qty: 12 1RF (DME) blood-glucose meter [OneTouch Ultra2 Meter] [facility] See Rx Instructions .Route Qty: 1 0RF Rx Instructions: Use to check blood sugar twice daily: fasting blood sugar and a random blood sugar (DME) lancets [OneTouch Delica Lancets] [facility] See Rx Instructions .Route Qty: 100 3RF Rx Instructions: Use to check blood sugar twice daily: fasting blood sugar and a random blood sugar hydroxyzine HCl 10 mg tablet 10 mg PO TID PRN (Reason: for itch) Qty: 90 8RF (DME) FreeStyle Susu 2 Sensor Kit See Rx Instructions .Route Qty: 2 5RF Rx Instructions: test blood sugar 4 times per day (DME) FreeStyle Susu 2 [place] [facility] See Rx Instructions .Route Qty: 1 0RF Rx Instructions: As directed (DME) humidifiers [facility] See Rx Instructions .Route Qty: 1 0RF Rx Instructions: As directed tizanidine 4 mg tablet 4 mg PO TID PRN (Reason: for pain) Qty: 270 8RF (DME) OneTouch Ultra Test Strip See Rx Instructions .Route Qty: 100 2RF Rx Instructions: Use to check blood sugar twice daily: fasting blood sugar and a random blood sugar atorvastatin 40 mg tablet 40 mg PO DAILY 90 Days Qty: 90 1RF cholecalciferol (vitamin D3) 50 mcg (2,000 unit) capsule 50 mcg PO DAILY Qty: 90 1RF omeprazole 20 mg capsule,delayed release(DR/EC) 20 mg PO BID Qty: 180 1RF Xarelto 20 mg tablet 20 mg PO DAILY Qty: 90 2RF dicyclomine 20 mg tablet 20 mg PO BID PRN (Reason: for cramps) 90 Days Qty: 180 1RF Jardiance 10 mg tablet 10 mg PO DAILY Qty: 90 1RF lisinopril 40 mg tablet 40 mg PO DAILY 90 Days Qty: 90 1RF amlodipine 10 mg tablet 10 mg PO DAILY 90 Days Qty: 90 1RF docusate sodium 100 mg capsule 100 mg PO BEDTIME Qty: 30 0RF albuterol sulfate 2.5 mg/0.5 mL solution for nebulization 5 mg inhalation Q4H PRN (Reason: shortness of breath or wheezing) Qty: 30 0RF albuterol sulfate 90 mcg/actuation HFA aerosol inhaler 2 puff inhalation Q20M PRN (Reason: shortness of breath or wheezing) Qty: 8.5 0RF (DME) blood pressure kit-extra large Kit See Rx Instructions .ROUTE .MEDSUPPLY Qty: 1 0RF Rx Instructions: As directed clonidine HCl 0.1 mg tablet 0.1 mg PO BID 30 Days Qty: 60 1RF ketoconazole 2 % cream 1 appl topical DAILY Qty: 30 0RF aripiprazole 5 mg tablet 5 mg PO DAILY buspirone 15 mg tablet 15 mg PO BID spironolactone 25 mg tablet 25 mg PO BID sertraline 100 mg tablet 100 mg PO DAILY zolpidem 5 mg tablet 5 mg PO BEDTIME PRN (Reason: Sleep) naloxone [Narcan] 4 mg/actuation spray,non-aerosol 4 mg intranasal Q2M PRN (Reason: as directed) Rx Instructions: spray 1 dose into ONE nostril; alternate nostrils w each dose until help arrives diclofenac sodium [Arthritis Pain (diclofenac)] 1 % gel 4 g topical QID 30 Days Qty: 100 11RF Rx Instructions: apply to single knee, ankle, foot; for foot includes sole/toes/top of foot magnesium oxide 400 mg (241.3 mg magnesium) tablet 400 mg PO BEDTIME 30 Days Qty: 30 6RF Rx Instructions: may hold for loose stools Senna Plus 8.6-50 mg capsule 2 tab-cap PO BEDTIME 60 Days Qty: 120 3RF melatonin 3 mg tablet 3 mg PO QPM carvedilol 25 mg tablet 25 mg PO BID gabapentin 100 mg capsule 100 mg PO BEDTIME 30 Days Qty: 30 2RF Print Language: Indonesian
[2024-09-09 13:52] VITALS: BP 137/62; PULSE 66; RESP 18; TEMP 36.1; O2SAT 98; BMI 40.2
--- NOTE | 2024-09-09 13:55 | ECG_ITS ---
Test Reason : SOB Blood Pressure : / mmHG Vent. Rate : 058 BPM Atrial Rate : 058 BPM P-R Int : 154 ms QRS Dur : 082 ms QT Int : 402 ms P-R-T Axes : 041 -06 042 degrees QTc Int : 394 ms Sinus bradycardia with sinus arrhythmia Minimal voltage criteria for LVH, may be normal variant ( R in aVL ) Borderline ECG When compared with ECG of 03-APR-2024 12:02, No significant change was found Referred By: Saira Hartman Electronically Signed By:Qamar Garcia
[2024-09-09 14:13] LABS: MANUAL DIFF FLAG NO
[2024-09-09 14:14] LABS: Basophils Absolute Auto 0.1 X10*3/uL (0.0-0.2); Basophils Percent Auto 0.7 % (0-2); Eosinophils Absolute Auto 0.2 X10*3/uL (0.0-0.4); Eosinophils Percent Auto 2.5 % (0-4); Hematocrit 39.1 % (37.0-47.0); Imm Gran Abs Auto 0.03 X10*3/uL (0.00-0.03); Imm Gran Pct Auto 0.4 % (0.0-0.4); Lymphocytes Absolute Auto 1.7 X10*3/uL (1.2-4.9); Lymphocytes Percent Auto 25.8 % (20-40); Mean Corpuscular HGB Conc 33.2 g/dl (31.0-35.0); Mean Corpuscular Hemoglobin 26.2 pg (27.0-33.0); Mean Corpuscular Volume 78.7 fL (80.0-98.0); Mean Platelet Volume 10.7 fL (9.4-12.3); Monocytes Absolute Auto 0.5 X10*3/uL (0.1-1.2); Monocytes Percent Auto 6.7 % (2-11); Neutrophils Absolute Auto 4.3 x10*3/uL (2.0-8.3); Neutrophils Percent Auto 63.9 % (45-73); Platelet Count 273 X10*3/uL (160-400); Red Blood Count 4.97 X10*6/uL (4.20-5.50); Red Cell Distribution Width 14.5 % (11.0-16.0); White Blood Count 6.8 X10*3/uL (4.8-10.8)
[2024-09-09 14:19] LABS: INTERNATIONAL NORM RATIO 1.2 (0.9-1.1); Prothrombin Time 14.3 SEC (10.9-12.4)
[2024-09-09 14:29] LABS: Alanine Aminotransferase 19 U/L (0-31); Albumin Level 3.8 g/dL (3.5-5.0); Alkaline Phosphatase 106 U/L (39-117); Anion Gap 14 (12-20); Aspartate Amino Transferase 17 U/L (5-31); Bilirubin Total 0.5 mg/dL (0.0-1.0); Blood Urea Nitrogen 27 mg/dL (9-16); Calcium 9.4 mg/dL (8.4-10.2); Carbon Dioxide 23 mmol/L (22-29); Chloride 109 mmol/L (96-108); Creatinine Clr Calc Pharmacy 41.2; Estimated Glomerular Filt Rate 33; Glucose Random 113 mg/dL (60-115); Magnesium 1.7 mg/dL (1.6-2.6); Potassium 3.9 mmol/L (3.3-5.1); Sodium 142 mmol/L (135-145); Total Protein 6.9 g/dL (6.5-8.0)
[2024-09-09 14:33] LABS: B Type Natriuretic Peptide 36 pg/mL (<100)
[2024-09-09 14:36] LABS: Troponin-I High Sensitivity 3.9 ng/L (<3.5-17.0)
[2024-09-09 14:51] LABS: Influenza A PCR NEGATIVE (Negative); Influenza B PCR NEGATIVE (Negative); Resp Syncy Virus RNA Qual PCR NEGATIVE (Negative); SARS COV2 PCR INHOUSE NEGATIVE (Negative)
[2024-09-09 16:46] VITALS: RESP 16
[2024-09-09] MEDS: Metoclopramide HCl 10 MG/2 ML VIAL IVPUSH (16:46)
[2024-09-09] MEDS: predniSONE 20 MG TABLET 60 MG PO (16:46)
[2024-09-09] MEDS: 0.9 % Sodium Chloride 1,000 ML 999 ML IVCONT (16:46)
[2024-09-09] MEDS: Morphine Sulfate 2 MG/ML CARTRIDGE IVPUSH (16:46)
[2024-09-09 18:02] VITALS: BP 128/61; PULSE 68; RESP 17; TEMP 36.6; O2SAT 96
--- NOTE | 2024-09-09 19:19 | PC.NURSE ---
Pt ambulatory to the restroom
[2024-09-09 19:21] LABS: Anion Gap 14 (12-20); Blood Urea Nitrogen 24 mg/dL (9-16); Calcium 8.2 mg/dL (8.4-10.2); Carbon Dioxide 18 mmol/L (22-29); Chloride 114 mmol/L (96-108); Creatinine Clr Calc Pharmacy 44.9; Estimated Glomerular Filt Rate 36; Glucose Random 168 mg/dL (60-115); Potassium 4.2 mmol/L (3.3-5.1); Sodium 142 mmol/L (135-145)
[2024-09-09 19:41] VITALS: BP 146/67; PULSE 70; RESP 18; TEMP 36.6; O2SAT 97
[2024-09-09 19:42] VITALS: BP 146/67; PULSE 70; RESP 18; TEMP 36.6; O2SAT 97
== END 2024-09-09 19:45 | disposition home or self-care (01) ==
PROVIDERS: Physician Assistant Medical; Emergency Provider Emergency Medicine; PCP Nurse Practitioner Family
DX: B34.9 Viral infection, unspecified (principal); R51.9 Headache, unspecified; R07.81 Pleurodynia; I10 Essential (primary) hypertension; I48.91 Unspecified atrial fibrillation; R06.02 Shortness of breath; Z79.01 Long term (current) use of anticoagulants; Z79.899 Other long term (current) drug therapy; Z03.818 Encounter for observation for suspected exposure to other biological agents ruled out
CPT/HCPCS: 0241U; 36415; 71046; 80048; 80053; 83735; 83880; 84484; 85025; 85610; 93005; 96361; 96372; 96374; 96375; 99284; 99285; J2270; J2765

== ENCOUNTER → 2024-09-09 13:55 | Outpatient (BNV) | payer OTHER, SELFPAY | PROVIDERS: Emergency Provider Emergency Medicine; PCP Nurse Practitioner Family; Visit Provider Internal Medicine Cardiovascular Disease | DX: R06.02 Shortness of breath (principal) | CPT/HCPCS: 93010 ==

== ENCOUNTER 2024-09-19 13:04 | Outpatient (AMB) | payer OTHER, SELFPAY ==
[2024-09-19 13:09] VITALS: BP 126/66; PULSE 73; O2SAT 98; BMI 39.5
--- NOTE | 2024-09-19 13:09 | MHC.PC.OV ---
Vital Signs 09/19/24 13:09 Height 5 ft 2 in Weight 216 lb BMI 39.5 BP 126/66 Blood Pressure Location Lt brachial Position Sitting Pulse 73 Pulse Source Pulse Oximeter Pulse Oximetry (%) 98 Oxygen Delivery Method Room Air Intake Visit Reasons: HDF (RUTH) Allergies ibuprofen [IBUPROFEN] Allergy (Mild, Verified 09/19/24 13:11) RASH, hives, hives Medication List - Last Reconciled 09/19/24 by Marlin Jewell MD albuterol sulfate 5 mg inhalation Q4H PRN albuterol sulfate 90 mcg/actuation 2 puffs inhalation Q20M PRN amlodipine 10 mg PO DAILY 90 days aripiprazole 5 mg PO DAILY atorvastatin 40 mg PO DAILY 90 days blood pressure kit-extra large As directed blood sugar diagnostic ([employer] Ultra Test strips) Use to check blood sugar twice daily: fasting blood sugar and a random blood sugar blood-glucose meter ([employer] Ultra2 Meter) Use to check blood sugar twice daily: fasting blood sugar and a random blood sugar buspirone 15 mg PO BID carvedilol 25 mg PO BID cholecalciferol (vitamin D3) 50 mcg PO DAILY clonidine HCl 0.1 mg PO BID 30 days diclofenac sodium 1% (Arthritis Pain (diclofenac)) 4 grams topical QID 30 days dicyclomine 20 mg PO BID PRN 90 days docusate sodium 100 mg PO BEDTIME empagliflozin (Jardiance) 10 mg PO DAILY flash glucose scanning reader ([employer] SpineStyle Susu 2 [place]) As directed flash glucose sensor (FreeStyle Susu 2 Sensor kit) test blood sugar 4 times per day fluticasone propionate 110 mcg/actuation 1 puff inhalation BID 30 days gabapentin 100 mg PO BEDTIME 30 days humidifiers As directed hydrochlorothiazide 25 mg PO DAILY 30 days hydroxyzine HCl 10 mg PO TID PRN incontinence pad, liner, disp use daily for incont ketoconazole 2% 1 appl topical DAILY lancets ([employer] Delica Lancets) Use to check blood sugar twice daily: fasting blood sugar and a random blood sugar lisinopril 40 mg PO DAILY 90 days magnesium oxide 400 mg PO BEDTIME 30 days melatonin 3 mg PO QPM naloxone 4 mg/actuation (Narcan) 4 mg intranasal Q2M PRN omeprazole 20 mg PO BID rivaroxaban (Xarelto) 20 mg PO DAILY sennosides-docusate sodium 8.6-50 mg (Senna Plus) 2 tab-caps (2 x 8.6-50 mg) PO BEDTIME 60 days sertraline 100 mg PO DAILY spironolactone 25 mg PO BID tizanidine 4 mg PO TID PRN zolpidem 5 mg PO BEDTIME PRN Tobacco use date assessed: 09/19/24 Dental Screening Dental Screen Date: 04/23/24 HPI HDF (RUTH) HPI Details Patient is 59-year-old female came in today to have a hospital discharge follow-up dated 09/09/2024, [facility] Patient presented to emergency room with a complaint of headache for 3 days, and back pain especially when she was laying down. Patient have a history of psychiatric illness Hypertension, difficulty sleeping, obesity, diabetes mellitus, GERD, lipid disorder, constipation, IBS, chronic pain, Lynch's esophagus, multiple joint arthritis, chronic back pain, asthma, obstructive sleep apnea, paroxysmal atrial fibrillation on chronic blood thinners Chest x-ray was unremarkable Patient was evaluated and discharged with a diagnosis of headache, acute kidney injury, acute viral syndrome Influenza test negative RSV negative COVID negative GFR 44.9, creatinine 1.47 reduced from 1.60 in the emergency room with fluids Patient have chronically low GFR, it was 39 on 07/30/2024 She continued to have pain right flank Patient does have history of kidney stone once Currently taking nothing for pain, I have told her that she may start taking Tylenol 3 times a day for pain controlled I have also ordered ultrasound of kidney right side There was no ultrasound done in the emergency room Headache has resolved We will also repeat the labs next week and she need to see a Nephrology for the nephropathy [facility] Medical History Barretts esophagus Hx of flexible sigmoidoscopy Osteoarthritis of left hip Spondylosis without myelopathy or radiculopathy, 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 Sacroiliitis Asthma WENDY (obstructive sleep apnea) Morbid obesity Swelling of both lower extremities Afib Disc degeneration, lumbar Cervical pain (neck) Calcaneal spur Benign neoplasm breast skin Bursitis, shoulder Xanthelasma Auditory hallucinations Impaired glucose tolerance Hyperlipidemia Anxiety Depression Adenomatous polyp of colon Esophagitis Hypertensive urgency PAF (paroxysmal atrial fibrillation) Palpitations HTN (hypertension) Dyspepsia GERD (gastroesophageal reflux disease) Surgical History Hx of colonoscopy H/O esophagogastroduodenoscopy (09/01/15) Status post Margarita fundoplication (10/27/12) History of removal of cyst Hx of cholecystectomy History of hysterectomy Family History Father CVD (cardiovascular disease) HTN (hypertension) Diabetes Mother HTN (hypertension) Diabetes CVD (cardiovascular disease) Brother Pacemaker Maternal Grandmother Throat cancer Brother No problems noted. Daughter Hx LEEP (loop electrosurgical excision procedure), cervix, Other Mental health disorder Substance use disorder Social History Household Members: None Housing: House Are you a primary urgent care physician assistant to a significant other at home: No Alcohol intake: never Patient Tobacco Use Status: Never used Tobacco e-Cigarette/Vaping Use: Never Used Second Hand Smoke Exposure: No Advance Directives Date on File: 03/16/21 service: No Current occupational status: disabled Sexual orientation: Straight/Heterosexual Gender identity: Female Cognitive needs: No Hearing needs: No Vision needs: No Questionnaire Thrive Questionnaire Date Thrive assessed: 08/08/24 I am a: Patient What is your living situation today?: I have a steady place to live Within the past 12 months, did the food you bought not last and you didn't have the money to get more?: I choose not to answer this question Within the past 12 months, did you worry whether your food would run out before you got money to buy more?: Never true Do you have trouble paying for medicines?: No Do you have trouble getting transportation to medical appointments?: No Do you have trouble paying your heating and electricity bill?: No Do you have trouble taking care of your child, family member or friend?: No Do you have trouble with day-to-day activities such as bathing, preparing meals, shopping, managing finances, etc.?: Yes Are you currently unemployed and looking for a job?: No Are you interested in more education?: No Please select the resources that you would like help with: None Currently or been in a relationship where the following occur: I choose not to answer THRIVE Score: 0 DION-7 AMB Questionnaire DION-7 Date DION - 7 assessed: 04/23/24 Source: Developed by DrsYudi Grant, Philly Velasquez, Jose Ramon Poon and colleagues, with an educational gifty from [employer]. Review of Systems Const Denies chills and Denies fever(s) ENT Denies epistaxis and Denies nasal discharge Card Denies chest pain Resp Denies chest congestion, Denies cough and Denies hemoptysis GI Denies diarrhea and Denies nausea Skin/Breast Denies rash Neuro Reports no additional complaints Psych Reports no additional complaints Endo Reports no additional complaints Physical exam (Primary Care) Vital Signs: Last Vital Signs Pulse 73 09/19/24 13:09 BP 126/66 09/19/24 13:09 Pulse Ox 98 09/19/24 13:09 Oxygen Delivery Method Room Air 09/19/24 13:09 BMI result Body Mass Index 39.5 Tobacco/Smoking Status: Tobacco use Status Tobacco use date assessed 09/19/24 09/19/24 13:13 Patient Tobacco Use Status Never used Tobacco 09/19/24 13:13 e-Cigarette/Vaping Use Never Used 09/19/24 13:13 Thrive Assessment: Date of Thrive Assessment Date Thrive assessed 08/08/24 09/19/24 13:13 Currently or been in a relationship where the following occur: I choose not to answer Const General: cooperative, comfortable and no acute distress Orientation/consciousness: patient oriented x3 HENMT Head: Yes normocephalic Eyes General: appearance normal, both eyes and all related structures Neck Neck: Yes supple Resp Effort & Inspection: normal respiratory effort, no cough and no stridor Cardio Heart sounds: S1 normal heart sound present and S2 normal heart sound present Back/Spine/Pelvis Back/spine/pelvis image: 1. Site of pain, no pain with percussion Skin General skin exam: turgor normal Neuro General: patient oriented x3, tone normal and moves all extremities Extrem Right lower extremity: no edema Left lower extremity: no edema Coding Level of Care Code Est Pt Level 5 (40543) Diagnoses Hospital discharge follow-up Z09 Right flank pain R10.9 History of renal calculi Z87.442 Nephropathy N28.9 Paroxysmal atrial fibrillation I48.0 Type 2 diabetes mellitus with diabetic nephropathy, without long-term current use of insulin E11.21 Diabetes mellitus complication detail: with nephropathy Diabetes mellitus complication status: with kidney complications Diabetes mellitus research epidemiologist insulin use: without research epidemiologist use Diabetes mellitus type: type 2 Assessment & Plan Assessment & Plan (1) Hospital discharge follow-up: Code(s): Z09 - Encounter for follow-up examination after completed treatment for conditions other than malignant neoplasm Category: Medical (2) Right flank pain: Code(s): R10.9 - Unspecified abdominal pain Category: Medical (3) History of renal calculi: Code(s): Z87.442 - Personal history of urinary calculi Category: Medical (4) Nephropathy: Code(s): N28.9 - Disorder of kidney and ureter, unspecified Category: Medical (5) Paroxysmal atrial fibrillation: Code(s): I48.0 - Paroxysmal atrial fibrillation Category: Medical (6) Diabetes: Code(s): E11.9 - Type 2 diabetes mellitus without complications Category: Medical Qualifiers: Diabetes mellitus complication detail: with nephropathy Diabetes mellitus complication status: with kidney complications Diabetes mellitus research epidemiologist insulin use: without research epidemiologist use Diabetes mellitus type: type 2 Qualified Code(s): E11.21 - Type 2 diabetes mellitus with diabetic nephropathy Plan Patient is 59-year-old female came in today to have a hospital discharge follow-up dated 09/09/2024, [facility] Patient presented to emergency room with a complaint of headache for 3 days, and back pain especially when she was laying down. Patient have a history of psychiatric illness Hypertension, difficulty sleeping, obesity, diabetes mellitus, GERD, lipid disorder, constipation, IBS, chronic pain, Lynch's esophagus, multiple joint arthritis, chronic back pain, asthma, obstructive sleep apnea, paroxysmal atrial fibrillation on chronic blood thinners Chest x-ray was unremarkable Patient was evaluated and discharged with a diagnosis of headache, acute kidney injury, acute viral syndrome Influenza test negative RSV negative COVID negative GFR 44.9, creatinine 1.47 reduced from 1.60 in the emergency room with fluids Patient have chronically low GFR, it was 39 on 07/30/2024 She continued to have pain right flank Patient does have history of kidney stone once Currently taking nothing for pain, I have told her that she may start taking Tylenol 3 times a day for pain controlled I have also ordered ultrasound of kidney right side There was no ultrasound done in the emergency room Headache has resolved We will also repeat the labs next week and she need to see a Nephrology for the nephropathy Going over chart and imaging, in [address] scan abdomen At that time they are worse no renal calculi seen 45 minutes spent in care of this patient, including reviewing patient's chart Emergency room note [id number] with the patient, coordination of care I am seeing this patient for Alfredo Massey who is the primary care and is away for few days Orders: Orders Comprehensive Met. Panel Today E11.21 - Type 2 diabetes mellitus with diabetic nephropathy, I48.0 - Paroxysmal atrial fibrillation, N28.9 - Disorder of kidney and ureter, unspecified, R10.9 - Unspecified abdominal pain Hemoglobin A1c Today E11.21 - Type 2 diabetes mellitus with diabetic nephropathy, I48.0 - Paroxysmal atrial fibrillation, N28.9 - Disorder of kidney and ureter, unspecified, R10.9 - Unspecified abdominal pain US renal BI Today N28.9 - Disorder of kidney and ureter, unspecified, R10.9 - Unspecified abdominal pain, Z87.442 - Personal history of urinary calculi Referrals Nephrology Referral N28.9 - Disorder of kidney and ureter, unspecified Medications: New acetaminophen ER (Tylenol 8 Hour) 650 mg PO Q12H PRN 60 tabs 0RF pain
== END 2024-09-19 13:50 | disposition home or self-care (01) ==
LOC: HO.HMCC 13:05
PROVIDERS: PCP Nurse Practitioner Family; Visit Provider Internal Medicine
DX: I48.0 Paroxysmal atrial fibrillation (principal); E11.21 Type 2 diabetes mellitus with diabetic nephropathy; Z09 Encounter for follow-up examination after completed treatment for conditions other than malignant neoplasm; R10.9 Unspecified abdominal pain; Z87.442 Personal history of urinary calculi; N28.9 Disorder of kidney and ureter, unspecified

== ENCOUNTER → 2024-09-19 13:04 | Outpatient (BNVA) | payer OTHER, SELFPAY | PROVIDERS: PCP Nurse Practitioner Family; Visit Provider Internal Medicine | DX: Z09 Encounter for follow-up examination after completed treatment for conditions other than malignant neoplasm (principal); R10.9 Unspecified abdominal pain; N28.9 Disorder of kidney and ureter, unspecified; I48.0 Paroxysmal atrial fibrillation; E11.21 Type 2 diabetes mellitus with diabetic nephropathy; Z87.442 Personal history of urinary calculi | CPT/HCPCS: 99212 ==

== ENCOUNTER 2024-09-25 14:07 | Outpatient (REF) | payer OTHER, SELFPAY ==
--- NOTE | ~2024-09-25 | US_ITS ---
EXAMINATION: US RETROPERITONEAL LIMITED (RENAL ONLY) CLINICAL INFORMATION: Disorder of ureter and kidney. COMPARISON: CT abdomen and pelvis 01/01/2023, TECHNIQUE: Real-time ultrasound images of the bilateral kidneys. Severely limited visualization due to bowel gas and body habitus. FINDINGS: RIGHT KIDNEY: 10.7 x 4.8 x 4.2 cm (SAG x AP x TRV). No hydronephrosis. No renal calculi. Renal cortical thickness is normal. Limited visualization. LEFT KIDNEY: 10.0 x 4.3 x 3.5 cm (SAG x AP x TRV). No hydronephrosis. No renal calculi. Renal cortical thickness is normal. Limited visualization. US/US renal BI IMPRESSION: No hydronephrosis. No renal calculi. Severely limited visualization.. Electronically signed by: Marina Liu MD 09/26/2024 09:01 AM EST
== END 2024-09-25 14:08 | disposition home or self-care (01) ==
LOC: HO.US 14:07
PROVIDERS: PCP Nurse Practitioner Family; Visit Provider Internal Medicine
DX: R10.9 Unspecified abdominal pain (principal); N28.9 Disorder of kidney and ureter, unspecified; Z87.442 Personal history of urinary calculi
CPT/HCPCS: 76775

== ENCOUNTER 2024-09-27 09:14 | Outpatient (REF) | payer OTHER, SELFPAY ==
[2024-09-27 13:50] LABS: Alanine Aminotransferase 17 U/L (0-31); Albumin Level 3.9 g/dL (3.5-5.0); Alkaline Phosphatase 115 U/L (39-117); Anion Gap 14 (12-20); Aspartate Amino Transferase 22 U/L (5-31); Bilirubin Total 0.7 mg/dL (0.0-1.0); Blood Urea Nitrogen 18 mg/dL (9-16); Calcium 9.9 mg/dL (8.4-10.2); Carbon Dioxide 24 mmol/L (22-29); Chloride 109 mmol/L (96-108); Estimated Glomerular Filt Rate 53; Glucose Random 120 mg/dL (60-115); Sodium 143 mmol/L (135-145); Total Protein 7.1 g/dL (6.5-8.0)
[2024-09-27 14:00] LABS: Estimated Average Glucose 157 mg/dL; Hemoglobin A1c % 7.1 % (<6.0); Total Hemoglobin (HGBA1C) 3452.7726 umol/L
== END 2024-09-27 09:15 | disposition home or self-care (01) ==
LOC: HO.HMGCLDS 09:14
PROVIDERS: PCP Internal Medicine; Visit Provider Internal Medicine
DX: N28.9 Disorder of kidney and ureter, unspecified (principal); R10.9 Unspecified abdominal pain; E11.21 Type 2 diabetes mellitus with diabetic nephropathy; I48.0 Paroxysmal atrial fibrillation
CPT/HCPCS: 36415; 80053; 83036

== ENCOUNTER 2024-10-09 10:58 | Outpatient (AMB) | payer OTHER, SELFPAY ==
--- NOTE | 2024-10-09 11:02 | HO.NEPHOV ---
Vital Signs 10/09/24 11:07 Height 5 ft 2 in Weight 220 lb 2 oz BMI 40.3 BP 138/70 Blood Pressure Location Lt brachial Position Sitting Pulse 75 Pulse Source Pulse Oximeter Pulse Oximetry (%) 97 Oxygen Delivery Method Room Air Intake Visit Reasons: Disorder of kidney and ureter-Conf Activity Manager Required: No Accompanied by: Daughter Allergies ibuprofen [IBUPROFEN] Allergy (Mild, Verified 10/09/24 11:07) RASH, hives, hives HPI Comments Details: I had the pleasure of seeing Nydia who is a 59 year old female who recently presented to [facility] with back pain and flank pain associated with headache. She has multiple other medical issues including diabetes mellitus and hypertension. She had been on Jardiance, JELANI inhibitor and diuretics and she was taking nonsteroidal anti-inflammatories for the pain along with the above-mentioned medications. Her serum creatinine was found to be 1.6. She has history of nephrolithiasis in the past. She underwent a renal ultrasound which did not show any hydronephrosis. She does not have any nausea, vomiting, diarrhea, hematuria, dizziness, chest pain, shortness of breath, proximal nocturnal dyspnea, orthopnea but has been having pedal edema. Her lood pressure has been fluctuant and needed quite a number medications to keep it close to goal. Her blood sugar control is fair. She claims to be hydrating adequately. She does not have any epistaxis, photosensitivity, new skin rashes or joint swellings. Nephrology is being consulted to assist in her continued clinical care. PENDING SALE TO [facility] Medical History Barretts esophagus Hx of flexible sigmoidoscopy Osteoarthritis of left hip Spondylosis without myelopathy or radiculopathy, 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 Sacroiliitis Asthma WENDY (obstructive sleep apnea) Morbid obesity Swelling of both lower extremities Afib Disc degeneration, lumbar Cervical pain (neck) Calcaneal spur Benign neoplasm breast skin Bursitis, shoulder Xanthelasma Auditory hallucinations Impaired glucose tolerance Hyperlipidemia Anxiety Depression Adenomatous polyp of colon Esophagitis Hypertensive urgency PAF (paroxysmal atrial fibrillation) Palpitations HTN (hypertension) Dyspepsia GERD (gastroesophageal reflux disease) Surgical History Hx of colonoscopy H/O esophagogastroduodenoscopy (09/01/15) Status post Margarita fundoplication (10/27/12) History of removal of cyst Hx of cholecystectomy History of hysterectomy Family History Father CVD (cardiovascular disease) HTN (hypertension) Diabetes Mother HTN (hypertension) Diabetes CVD (cardiovascular disease) Brother Pacemaker Maternal Grandmother Throat cancer Brother No problems noted. Daughter Hx LEEP (loop electrosurgical excision procedure), cervix, Other Mental health disorder Substance use disorder Social History Household Members: None Housing: House Are you a primary district manager primary care sales to a significant other at home: No Alcohol intake: never Patient Tobacco Use Status: Never used Tobacco e-Cigarette/Vaping Use: Never Used Second Hand Smoke Exposure: No Advance Directives Date on File: 03/16/21 service: No Current occupational status: disabled Sexual orientation: Straight/Heterosexual Gender identity: Female Cognitive needs: No Hearing needs: No Vision needs: No Review of Systems Const All systems reviewed & are unremarkable except as noted in HPI and below Physical Exam Const General: comfortable and no acute distress Orientation/consciousness: patient oriented x3 HEENT Head: Yes normocephalic Mouth: Normal oral and palatal mucosa present Eyes EOM: EOMs intact bilaterally Neck Neck: Yes supple Resp Auscultation: clear to auscultation bilaterally Cardio Jugular venous distension: no JVD Rate: regular rate GI Palpation (GI): Soft to palpation Auscultation: normal bowel sounds General: Yes no CVA tenderness Back/Spine/Pelvis Back: no CVA tenderness Skin General skin exam: no rashes or lesions noted Neuro General: patient oriented x3 and moves all extremities Extrem General: Yes no pedal edema Results Reviewed Nephrology Results: Hgb 13.0 g/dl (12.0-16.0) 09/09/24 WBC 6.8 X10*3/uL (4.8-10.8) 09/09/24 Plt Count 273 X10*3/uL (160-400) 09/09/24 Sodium 143 mmol/L (135-145) 09/27/24 Potassium 4.0 mmol/L (3.3-5.1) 09/27/24 Chloride 109 mmol/L (96-108) H 09/27/24 Carbon Dioxide 24 mmol/L (22-29) 09/27/24 BUN 18 mg/dL (9-16) H 09/27/24 Creatinine 1.05 mg/dL (0.5-1.4) 09/27/24 Calcium 9.9 mg/dL (8.4-10.2) 09/27/24 Renal US 09/25/24 Assessment & Plan Assessment & Plan (1) RUTH (acute kidney injury): Code(s): N17.9 - Acute kidney failure, unspecified Category: Medical (2) HTN (hypertension): Code(s): I10 - Essential (primary) hypertension Category: Medical Qualifiers: Hypertension type: primary hypertension Qualified Code(s): I10 - Essential (primary) hypertension (3) History of renal calculi: Code(s): Z87.442 - Personal history of urinary calculi Category: Medical (4) Edema: Code(s): R60.9 - Edema, unspecified Category: Medical Qualifiers: Edema type: localized Qualified Code(s): R60.0 - Localized edema Plan Nydia has RUTH due to compromise in renal perfusion with resultant tubular injury. She has been taking JELANI inhibitor, Jardiance, hydrochlorothiazide and nonsteroidals the same time. She likely had altered autoregulation the kidney. Her urine output is good. Her renal ultrasound did not show any obstructive uropathy. There is no reason to suspect any GN or AIN. Her renal functions are steadily improving with hydration. She is on multiple antihypertensive medications to keep her blood pressure at goal. She has significant by pedal edema most likely due to amlodipine. She is not known to have any significant proteinuria. She clearly needs to lose significant weight. I ordered follow-up blood work and urine studies. I shall work with her to minimize the number of her antihypertensive medications. She was encouraged to avoid nonsteroidal anti-inflammatories. She needs to cut back sodium in the diet especially given history of renal calculus and hypertension. She also follows up with cardiology. Further management is pending evolving data Orders: Orders Calcium 2 Months N17.9 - Acute kidney failure, unspecified Immunofixation Pnl, Serum 2 Months N17.9 - Acute kidney failure, unspecified TSH reflex Free T4 2 Months I10 - Essential (primary) hypertension Electrolytes 2 Months N17.9 - Acute kidney failure, unspecified Blood Urea Nitrogen 2 Months N17.9 - Acute kidney failure, unspecified Creatinine 2 Months N17.9 - Acute kidney failure, unspecified Protein Creatinine Ratio, Ur 2 Months N17.9 - Acute kidney failure, unspecified Coding Level of Care Code New Pt Level 4 (03950) Diagnoses RUTH (acute kidney injury) N17.9 Primary hypertension I10 Hypertension type: primary hypertension History of renal calculi Z87.442 Localized edema R60.0 Edema type: localized
[2024-10-09 11:07] VITALS: BP 138/70; PULSE 75; O2SAT 97; BMI 40.3
== END 2024-10-09 11:27 | disposition home or self-care (01) ==
PROVIDERS: PCP Nurse Practitioner Family; Referring Provider Internal Medicine; Visit Provider Internal Medicine Nephrology
DX: N17.9 Acute kidney failure, unspecified (principal); I10 Essential (primary) hypertension; Z87.442 Personal history of urinary calculi; R60.0 Localized edema
CPT/HCPCS: 99204

== ENCOUNTER → 2024-10-09 10:58 | Outpatient (BNVA) | payer OTHER, SELFPAY | PROVIDERS: PCP Nurse Practitioner Family; Referring Provider Internal Medicine; Visit Provider Internal Medicine Nephrology | DX: N17.9 Acute kidney failure, unspecified (principal); I10 Essential (primary) hypertension; R60.0 Localized edema; Z87.442 Personal history of urinary calculi | CPT/HCPCS: 99202 ==

== ENCOUNTER 2024-10-15 13:49 | Outpatient (AMB) | payer OTHER, SELFPAY ==
--- NOTE | 2024-10-15 13:57 | AM.OFFVISNUR ---
Intake Visit Reasons: Follow up Allergies ibuprofen [IBUPROFEN] Allergy (Mild, Verified 10/09/24 11:07) RASH, hives, hives
--- NOTE | 2024-10-15 13:58 | A.OFFVIS_ITS ---
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: No Allergies ibuprofen [IBUPROFEN] Allergy (Mild, Verified 10/15/24 14:07) RASH, hives, hives Medication List - Last Reconciled 10/15/24 by Pritesh Lebron MD acetaminophen ER (Tylenol 8 Hour) 650 mg PO Q12H PRN albuterol sulfate 5 mg inhalation Q4H PRN albuterol sulfate 90 mcg/actuation 2 puffs inhalation Q20M PRN amlodipine 10 mg PO DAILY 90 days aripiprazole 5 mg PO DAILY atorvastatin 20 mg PO DAILY blood pressure kit-extra large As directed blood sugar diagnostic ([employer] Ultra Test strips) Use to check blood sugar twice daily: fasting blood sugar and a random blood sugar blood-glucose meter ([employer] Ultra2 Meter) Use to check blood sugar twice daily: fasting blood sugar and a random blood sugar buspirone 15 mg PO BID carvedilol 25 mg PO BID cholecalciferol (vitamin D3) 50 mcg PO DAILY clonidine HCl 0.1 mg PO BID 30 days diclofenac sodium 1% (Arthritis Pain (diclofenac)) 4 grams topical QID 30 days dicyclomine 20 mg PO BID PRN 90 days docusate sodium 100 mg PO BEDTIME empagliflozin (Jardiance) 10 mg PO DAILY flash glucose scanning reader (SpecleStyle Susu 2 [place]) As directed flash glucose sensor (FreeStyle Susu 2 Sensor kit) test blood sugar 4 times per day fluticasone propionate 110 mcg/actuation 1 puff inhalation BID 30 days gabapentin 100 mg PO BEDTIME 30 days humidifiers As directed hydrochlorothiazide 25 mg PO DAILY 30 days hydroxyzine HCl 10 mg PO TID PRN incontinence pad, liner, disp use daily for incont ketoconazole 2% 1 appl topical DAILY lancets ([employer] Delica Lancets) Use to check blood sugar twice daily: fasting blood sugar and a random blood sugar lisinopril 40 mg PO DAILY 90 days magnesium oxide 400 mg PO BEDTIME 30 days melatonin 3 mg PO QPM naloxone 4 mg/actuation (Narcan) 4 mg intranasal Q2M PRN omeprazole 20 mg PO BID rivaroxaban (Xarelto) 20 mg PO DAILY sennosides-docusate sodium 8.6-50 mg (Senna Plus) 2 tab-caps (2 x 8.6-50 mg) PO BEDTIME 60 days sertraline 100 mg PO DAILY spironolactone 25 mg PO BID tizanidine 4 mg PO TID PRN zolpidem 5 mg PO BEDTIME PRN Post menopausal: Yes Patient : No HPI Comments Details: Nydia comes for follow-up after a longer gap. She had to go to [place] to take care of her mom. However she has continued symptoms of palpitation happens about once a week. She said last for 5 minutes comes out of the blue and has rapid heart rate. She has no lightheadedness, chest pain, syncope with it. Denies any exertional chest pain or shortness of breath. Says she is limited because of her knee and sciatica issues. Denies any orthopnea, PND, leg edema. No bleeding issues or neurologic events. Blood pressures been better controlled on current meds. Renal function has improved off lisinopril [facility] Medical History (Updated 10/15/24 @ 14:22 by Pritesh Lebron MD) PAF (paroxysmal atrial fibrillation) Barretts esophagus Hx of flexible sigmoidoscopy Osteoarthritis of left hip Spondylosis without myelopathy or radiculopathy, 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 Sacroiliitis Asthma WENDY (obstructive sleep apnea) Morbid obesity Swelling of both lower extremities Afib Disc degeneration, lumbar Cervical pain (neck) Calcaneal spur Benign neoplasm breast skin Bursitis, shoulder Xanthelasma Auditory hallucinations Impaired glucose tolerance Hyperlipidemia Anxiety Depression Adenomatous polyp of colon Esophagitis Hypertensive urgency Palpitations HTN (hypertension) Dyspepsia GERD (gastroesophageal reflux disease) Surgical History Hx of colonoscopy H/O esophagogastroduodenoscopy (09/01/15) Status post Margarita fundoplication (10/27/12) History of removal of cyst Hx of cholecystectomy History of hysterectomy Family History Father CVD (cardiovascular disease) HTN (hypertension) Diabetes Mother HTN (hypertension) Diabetes CVD (cardiovascular disease) Brother Pacemaker Maternal Grandmother Throat cancer Brother No problems noted. Daughter Hx LEEP (loop electrosurgical excision procedure), cervix, Other Mental health disorder Substance use disorder Social History Household Members: None Housing: House Are you a primary career education teacher to a significant other at home: No Alcohol intake: never Patient Tobacco Use Status: Never used Tobacco e-Cigarette/Vaping Use: Never Used Second Hand Smoke Exposure: No Advance Directives Date on File: 03/16/21 service: No Current occupational status: disabled Sexual orientation: Straight/Heterosexual Gender identity: Female Cognitive needs: No Hearing needs: No Vision needs: No Review of Systems Const Denies chills, Denies fatigue, Denies fever(s), Denies frequent falls, Denies weakness, Denies weight gain and Denies weight loss ENT Denies dizziness Card Denies chest pain, Denies leg edema, Denies lightheadedness, Denies palpitations, Denies dyspnea, Denies dyspnea on exertion, Denies orthopnea and Denies other (loss of consciousness) Resp Denies cough, Denies dyspnea and Denies dyspnea on exertion GI Denies hematochezia and Denies change in stool character Musc Denies abnormal gait, Denies muscle weakness, Denies numbness, Denies radiating pain into limb and Denies tingling Neuro Denies abnormal gait, Denies dizziness, Denies frequent falls, Denies numbness, Denies tingling and Denies weakness Endo Denies fatigue and Denies palpitations Physical Exam Vital Signs: Last Vital Signs Pulse 72 10/15/24 14:01 BP 132/70 10/15/24 14:01 BMI result Body Mass Index 39.5 Repeat blood pressure 110/62 Const General: cooperative, comfortable, no acute distress, alert and awake Nutritional Appearance: obese Orientation/consciousness: patient oriented x3 Limitations: ambulation with cane Neck Neck: Yes trachea midline, Yes supple and Yes no JVD Resp Effort & Inspection: normal respiratory effort Auscultation: clear to auscultation bilaterally Cardio Jugular venous distension: no JVD Palpation: normal PMI Rate: regular rate Rhythm: regular rhythm Heart sounds: S1 normal heart sound present and S2 normal heart sound present GI Inspection: Yes obesity Auscultation: normal bowel sounds Skin General skin exam: no rashes or lesions noted Neuro General: patient oriented x3 and no focal motor deficits Extrem General: Yes normal to inspection and Yes no clubbing, cyanosis or edema Assessment & Plan Assessment & Plan (1) PAF (paroxysmal atrial fibrillation): Comment: shamika Sees Dr Lebron Code(s): I48.0 - Paroxysmal atrial fibrillation Category: Medical Plan: Paroxysmal atrial fibrillation with recurrent symptoms of palpitation although happening for 5 minutes once a week. Could represent SVT could represent recurrent atrial fibrillation. Will check with 7 day Holter monitor. Also obtain echocardiogram to evaluate LV systolic and diastolic function to evaluate for biatrial chamber size. Will continue pursue rhythm control approach as she is highly symptomatic although at this point time I would avoid antiarrhythmic drug therapy. Continue current oral anticoagulation with Xarelto with CHADSVAsc score of 3. Continue aggressive risk factor modification. Weight reduction should help significantly. Consider GLP 1 antagonist therapy. Continue CPAP therapy. (2) HTN (hypertension): Code(s): I10 - Essential (primary) hypertension Category: Medical Plan: Hypertension which is currently well optimized on current medications. Blood pressure was discussed with her. She understands agrees. Continue current therapy. Also being followed by Nephrology team. Continue CPAP therapy. Continue participate in aggressive weight loss program. Low-salt diet was discussed. Continue aggressive diabetes management goal hemoglobin A1c less than 7%. Will follow up in the clinic in 1 year's time, sooner p.r.n.. Thank you for allowing me to partake in her care Orders: Orders ECG 7 day holter monitor Today I48.0 - Paroxysmal atrial fibrillation CA echo transthoracic complete Today I48.0 - Paroxysmal atrial fibrillation Coding Level of Care Code Est Pt Level 4 (47325) Complex EM visit Add On G2211 Diagnoses PAF (paroxysmal atrial fibrillation) I48.0 HTN (hypertension) I10
[2024-10-15 14:01] VITALS: BP 132/70; PULSE 72; BMI 39.5
== END 2024-10-15 14:18 | disposition home or self-care (01) ==
PROVIDERS: PCP Nurse Practitioner Family; Visit Provider Internal Medicine Cardiovascular Disease
DX: I48.0 Paroxysmal atrial fibrillation (principal); I10 Essential (primary) hypertension
CPT/HCPCS: 99214; G2211

== ENCOUNTER → 2024-10-15 13:49 | Outpatient (BNVA) | payer OTHER, SELFPAY | PROVIDERS: PCP Nurse Practitioner Family; Visit Provider Internal Medicine Cardiovascular Disease | DX: I48.0 Paroxysmal atrial fibrillation (principal); I10 Essential (primary) hypertension | CPT/HCPCS: 99212 ==

== ENCOUNTER 2024-10-17 08:40 | Outpatient (REF) | payer OTHER, SELFPAY ==
[2024-10-17] MEDS: iohexoL 350 MG/ML 100 ML INFUS..BTL 85 ML IV (09:29)
== END 2024-10-17 08:41 | disposition home or self-care (01) ==
LOC: HO.CT 08:40
PROVIDERS: PCP Internal Medicine; Visit Provider Obstetrics & Gynecology
DX: R10.2 Pelvic and perineal pain (principal)
CPT/HCPCS: 74177; Q9967

== ENCOUNTER → 2024-10-17 08:45 | Outpatient (BNV) | payer OTHER, SELFPAY | PROVIDERS: PCP Internal Medicine; Visit Provider Radiology Diagnostic Radiology | DX: R10.2 Pelvic and perineal pain (principal) | CPT/HCPCS: 74177 ==

== ENCOUNTER 2024-11-30 11:05 | Day surgery (SDC) | payer OTHER, SELFPAY ==
[2024-11-28 14:33] VITALS: BMI 40.2
--- NOTE | 2024-11-29 10:05 | P.CONAN_ITS ---
Documented by User: Irais Elizabeth NP 11/29/24 10:09 HPI - Anesthesia Eval Consult details Narrative: 59yo F for Upper Endoscopy and Colonoscopy Xarelto for PAF Follows [facility] Cardiology. Last office visit 09/2024 with report of palpitations. Pending holter and ECHO. Per workload, ok to proceed with GI and hold xarelto Anesthesia Pre-Procedure Meds Is the patient on any of the following meds?: SGLT2 Inhib PMFSH Active Problems Active Problems: All Active Problems PAF (paroxysmal atrial fibrillation) (Acute) Edema (Acute) Nephropathy (Acute) History of renal calculi (Acute) Right flank pain (Acute) Hospital discharge follow-up (Acute) Pelvic pain (Acute) Well woman exam (Acute) Screening for colon cancer (Acute) Greater trochanteric bursitis of left hip (Acute) Abdominal cramps (Acute) Left hip pain (Acute) Strep throat (Acute) Cervical neck pain with evidence of disc disease (Acute) Tinea corporis (Acute) Hypoxemia associated with sleep (Acute) Shortness of breath on exertion (Acute) Neuropathy (Acute) Arthritis of left knee (Acute) Elevated alkaline phosphatase level (Acute) Diabetes (Acute) Patellofemoral arthralgia of both knees (Acute) Obesity (Acute) Foot pain, bilateral (Acute) GERD (gastroesophageal reflux disease) (Acute) Early satiety (Acute) Chronic constipation (Acute) Vaginal lesion (Acute) HTN (hypertension) (Acute) Paroxysmal atrial fibrillation (Acute) Bacterial vaginosis (Acute) Bilateral primary osteoarthritis of knee (Acute) Spondylosis of lumbosacral spine with radiculopathy (Acute) Pain and swelling of knee (Acute) Continuous periumbilical abdominal pain (Acute) Dyslipidemia (Acute) Elevated fasting blood sugar (Acute) Lynch's esophagus without dysplasia (Acute) Right otitis media (Acute) HTN (hypertension) (Acute) Cough (Acute) Physical exam (Acute) Postmenopausal (Acute) Bilateral hip pain (Acute) Sacroiliac joint pain (Acute) Somatic dysfunction of right sacroiliac joint (Acute) Viral illness (Acute) Otitis media, right (Acute) Sciatica (Acute) HTN (hypertension) (Acute) Uncontrolled hypertension (Acute) Elevated fasting blood sugar (Acute) Acute pharyngitis (Acute) Microscopic hematuria (Acute) GERD (gastroesophageal reflux disease) (Acute) Hemorrhoids, internal, with bleeding (Acute) Arthritis of left hip (Acute) HTN (hypertension) (Acute) Sleep apnea (Acute) Melena (Acute) Melena (Acute) Hematemesis (Acute) Osteoarthritis of left hip (Acute) Spondylosis without myelopathy or radiculopathy, lumbar region (Acute) Sacroiliac joint dysfunction of right side (Acute) Sacroiliitis (Acute) Asthma (Acute) WENDY (obstructive sleep apnea) (Acute) Morbid obesity (Acute) Swelling of both lower extremities (Acute) Disc degeneration, lumbar (Acute) Adenomatous polyp of colon (Acute) Cervical pain (neck) (Acute) Past Medical History Medical History (Updated 10/15/24 @ 14:22 by Pritesh Lebron MD) PAF (paroxysmal atrial fibrillation) Barretts esophagus Hx of flexible sigmoidoscopy Osteoarthritis of left hip Spondylosis without myelopathy or radiculopathy, 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 Sacroiliitis Asthma WENDY (obstructive sleep apnea) Morbid obesity Swelling of both lower extremities Afib Disc degeneration, lumbar Cervical pain (neck) Calcaneal spur Benign neoplasm breast skin Bursitis, shoulder Xanthelasma Auditory hallucinations Impaired glucose tolerance Hyperlipidemia Anxiety Depression Adenomatous polyp of colon Esophagitis Hypertensive urgency Palpitations HTN (hypertension) Dyspepsia GERD (gastroesophageal reflux disease) Family History Family History Father CVD (cardiovascular disease) HTN (hypertension) Diabetes Mother HTN (hypertension) Diabetes CVD (cardiovascular disease) Brother Pacemaker Maternal Grandmother Throat cancer Brother No problems noted. Daughter Hx LEEP (loop electrosurgical excision procedure), cervix, Other Mental health disorder Substance use disorder Family history of problems with anesthesia: No Surgical History Surgical History Hx of colonoscopy H/O esophagogastroduodenoscopy (09/01/15) Status post Margarita fundoplication (10/27/12) History of removal of cyst Hx of cholecystectomy History of hysterectomy History of Problems with Anesthesia: No Social History Social History Household Members: None Housing: House Are you a primary healthcare management to a significant other at home: No Do you presently have visiting nurse or other home services: No Alcohol intake: never Patient Tobacco Use Status: Never used Tobacco e-Cigarette/Vaping Use: Never Used Second Hand Smoke Exposure: No Use of substances other than those prescribed or required for medical reasons: No Have you been hit, kicked, punched, or otherwise hurt by someone within the past year? If so, by whom?: No Are you DNR?: No Advance Directives: No Advance Directives Information Provided: Yes (Daughter Malia Vizcaino per patient) Advance Directives on File: No (None on file) Advance Directives Date on File: 03/16/21 Recently lost weight without trying: No How much weight loss: Not applicable Eating poorly because of decreased appetite: No Nutrition screen score: 0 Nutrition Risks: No Nutritional Risk Patient : No : No Poor oral hygiene: No service: No Current occupational status: disabled Sexual orientation: Straight/Heterosexual Gender identity: Female Cognitive needs: No Hearing needs: No Vision needs: No Meds Allergies Allergy/AdvReac Type Severity Reaction Status Date / Time ibuprofen [IBUPROFEN] Allergy Mild RASH, hives Verified 11/30/24 12:07 Home Medications ?Medication ?Instructions ?Recorded ?Confirmed ?Last Taken ?Type aripiprazole 5 mg tablet 5 mg PO DAILY 08/23/20 11/30/24 11/30/24 History buspirone 15 mg tablet 15 mg PO BID 08/23/20 11/30/24 01/26/23 08:30 History spironolactone 25 mg tablet 25 mg PO BID 08/23/20 11/30/24 11/29/24 History sertraline 100 mg tablet 100 mg PO DAILY 05/26/21 11/30/24 01/26/23 08:30 History naloxone 4 mg/actuation nasal 4 mg intranasal Q2M PRN as directed 04/28/22 11/30/24 Unknown History spray (Narcan) zolpidem 5 mg tablet 5 mg PO BEDTIME PRN Sleep 06/10/22 11/30/24 Unknown History melatonin 3 mg tablet 3 mg PO QPM 07/18/23 11/30/24 Unknown History carvedilol 25 mg tablet 25 mg PO BID 12/14/23 11/30/24 11/29/24 History atorvastatin 20 mg tablet 20 mg PO DAILY 10/09/24 11/30/24 Unknown History Exam Height,Weight and Vital Signs: Height 5 ft 2 in Weight 99.79 kg Pertinent Lab Results Pertinent Lab Results: Laboratory Tests 09/09/24 09/27/24 14:07 10:11 WBC 6.8 Hgb 13.0 Hct 39.1 Plt Count 273 Sodium 143 Potassium 4.0 Chloride 109 H Carbon Dioxide 24 BUN 18 H Creatinine 1.05 Narrative Narrative: EKG 08/2024 Vent. Rate : 058 BPM Atrial Rate : 058 BPM P-R Int : 154 ms QRS Dur : 082 ms QT Int : 402 ms P-R-T Axes : 041 -06 042 degrees QTc Int : 394 ms Sinus bradycardia with sinus arrhythmia Minimal voltage criteria for LVH, may be normal variant ( R in aVL ) Borderline ECG When compared with ECG of 03-APR-2024 12:02, No significant change was found ECHO 2022 Conclusions: - 1. Normal LV systolic function with normal filling pattern 2. Normal cardiac valvular Dopplers 3. Normal RV systolic pressure 4. No gross pericardial effusion Assessment and Plan Assessment Anesthesia Assessment: Chart Reviewed Final Anesthetic Review Family History of Problems with Anesthesia: No History of Problems with Anesthesia: No Documented by User: Josseline Sosa MD 11/30/24 12:44 [facility] Past Medical History Medical History (Updated 10/15/24 @ 14:22 by Pritesh Lebron MD) PAF (paroxysmal atrial fibrillation) Barretts esophagus Hx of flexible sigmoidoscopy Osteoarthritis of left hip Spondylosis without myelopathy or radiculopathy, 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 Sacroiliitis Asthma WENDY (obstructive sleep apnea) Morbid obesity Swelling of both lower extremities Afib Disc degeneration, lumbar Cervical pain (neck) Calcaneal spur Benign neoplasm breast skin Bursitis, shoulder Xanthelasma Auditory hallucinations Impaired glucose tolerance Hyperlipidemia Anxiety Depression Adenomatous polyp of colon Esophagitis Hypertensive urgency Palpitations HTN (hypertension) Dyspepsia GERD (gastroesophageal reflux disease) Family History Family History Father CVD (cardiovascular disease) HTN (hypertension) Diabetes Mother HTN (hypertension) Diabetes CVD (cardiovascular disease) Brother Pacemaker Maternal Grandmother Throat cancer Brother No problems noted. Daughter Hx LEEP (loop electrosurgical excision procedure), cervix, Other Mental health disorder Substance use disorder Surgical History Surgical History Hx of colonoscopy H/O esophagogastroduodenoscopy (09/01/15) Status post Margarita fundoplication (10/27/12) History of removal of cyst Hx of cholecystectomy History of hysterectomy Social History Social History Household Members: None Housing: House Are you a primary healthcare management to a significant other at home: No Do you presently have visiting nurse or other home services: No Alcohol intake: never Patient Tobacco Use Status: Never used Tobacco e-Cigarette/Vaping Use: Never Used Second Hand Smoke Exposure: No Use of substances other than those prescribed or required for medical reasons: No Have you been hit, kicked, punched, or otherwise hurt by someone within the past year? If so, by whom?: No Are you DNR?: No Advance Directives: No Advance Directives Information Provided: Yes (Daughter Malia Vizcaino per patient) Advance Directives on File: No (None on file) Advance Directives Date on File: 03/16/21 Recently lost weight without trying: No How much weight loss: Not applicable Eating poorly because of decreased appetite: No Nutrition screen score: 0 Nutrition Risks: No Nutritional Risk Patient : No : No Poor oral hygiene: No service: No Current occupational status: disabled Sexual orientation: Straight/Heterosexual Gender identity: Female Cognitive needs: No Hearing needs: No Vision needs: No Meds Allergies Allergy/AdvReac Type Severity Reaction Status Date / Time ibuprofen [IBUPROFEN] Allergy Mild RASH, hives Verified 11/30/24 12:07 Home Medications ?Medication ?Instructions ?Recorded ?Confirmed ?Last Taken ?Type aripiprazole 5 mg tablet 5 mg PO DAILY 08/23/20 11/30/24 11/30/24 History buspirone 15 mg tablet 15 mg PO BID 08/23/20 11/30/24 01/26/23 08:30 History spironolactone 25 mg tablet 25 mg PO BID 08/23/20 11/30/24 11/29/24 History sertraline 100 mg tablet 100 mg PO DAILY 05/26/21 11/30/24 01/26/23 08:30 History naloxone 4 mg/actuation nasal 4 mg intranasal Q2M PRN as directed 04/28/22 11/30/24 Unknown History spray (Narcan) zolpidem 5 mg tablet 5 mg PO BEDTIME PRN Sleep 06/10/22 11/30/24 Unknown History melatonin 3 mg tablet 3 mg PO QPM 07/18/23 11/30/24 Unknown History carvedilol 25 mg tablet 25 mg PO BID 12/14/23 11/30/24 11/29/24 History atorvastatin 20 mg tablet 20 mg PO DAILY 10/09/24 11/30/24 Unknown History Exam Airway Mallampati Class: II (top right front tooth not hers, denies being loose) TM Dist: >3cm Neck ROM: Full Heart: rrr Lungs: cta Assessment and Plan Final Anesthetic Review NPO: Yes ASA Class: III Final Preanesthetic Review: No Changes in Pt Med Stat, Meds/Allgs Chart Reviewed and Consent Obtained/Reviewed Patient Risk: Intermediate Procedure Risk: Intermediate Anesthetic Plan Anesthetic Plan: MAC: Disposition: Standard PACU
--- NOTE | 2024-11-30 11:43 | MHC.SHP ---
Pre-Procedural Eval Section A - 24 Hr Update-Section A only Date of Service: 11/30/24 The patient is an INPATIENT: No The patient has been examined within 24 hours of the surgical procedure. The History & Physical has been completed within 30 days and I have reviewed it.: No Section B - Complete if H&P > 30 days Chief Complaint: screening, FU of Lynch's Relevant Family History (Specify if Yes): No Relevant Social History: None Present Medications: see Short Stay Collaborative assessment Medical History: Significant History (Asthma WENDY (obstructive sleep apnea) Morbid obesity Swelling of both lower extremities Afib Disc degeneration, lumbar Cervical pain (neck) Calcaneal spur Benign neoplasm breast skin Bursitis, shoulder Xanthelasma Auditory hallucinations Impaired glucose tolerance Hyperlipidemia Anxiety Depression Ad) History of Previous Operations: Relevant previous surgery/procedure and date(s) (Hx of colonoscopy H/O esophagogastroduodenoscopy (09/01/15) Status post Margarita fundoplication (10/27/12) History of removal of cyst Hx of cholecystectomy History of hysterectomy) Allergies: Allergies Allergy/AdvReac Type Severity Reaction Status Date / Time ibuprofen [IBUPROFEN] Allergy Mild RASH, Verified 10/15/24 14:07 hives, hives Review of Systems Sugical H&P ROS: Negative: Constitution, Cardiovascular, Respiratory and Gastrointestinal Exam Surgical H&P Exam: Normal: Heart, Normal: Lungs, Normal: Extremities and Normal: Abdomen Plan Diagnosis/Plan: Unchanged I have reviewed the history and physical and performed a pertinent physical examination on my patient. No changes have occurred unless specified. Time Spent With Patient Time: Total time managing care of this patient today ____ minutes.
[2024-11-30 11:58] VITALS: BP 142/64; PULSE 85; RESP 16; TEMP 37; O2SAT 99; BMI 38.9
[2024-11-30 12:06] LABS: Glucose, Whole Blood 109 mg/dL (60-115)
[2024-11-30] MEDS: Lactated Ringers 1,000 ML 100 ML IVCONT (12:27)
--- NOTE | 2024-11-30 13:06 | HO.OPN-COLON ---
Colonoscopy Operative Note Operative Note Date of Service: 11/30/24 Narrative: FLEXIBLE TRANSORAL UPPER GASTROINTESTINAL ENDOSCOPY WITH BIOPSIES AND COLONOSCOPY TILL CECUM WITH BIOPSIES AND SNARE POLYPECTOMY Pre-op diagnosis: Colon cancer screening, follow-up of Barretts Post-op diagnosis: Malave's, Gastritis, Gastric polyp, Colon Polyps, Diverticulosis, hemorrhoids Specimens and Sources: : A: GASTRIC POLYP ?B: DISTAL ESOPHAGUS FOLLOW UP MALAVE'S ?C: CECAL POLYP ?D: TRANSVERSE COLON POLYPS Endoscopist:? Mara Burger MD Anesthesia:?MAC UPPER ENDOSCOPY Consent: Indications for the procedure and potential complications of bleeding, perforation, reaction to medications and missed diagnosis were discussed with the patient and informed consent was obtained. Instrument: Olympus GIF H 190 mid size upper endoscope Monitoring: Vital signs and clinical assessment, continuous EKG monitoring, Pulse oximetry, Carbon Dioxide monitoring and blood pressure monitoring were done throughout the procedure. Procedure: The patient was placed in the left lateral decubitis position and pre-procedure medications were administered and a bite block was placed. The endoscope was inserted into the mouth and advanced under direct vision to the third part of duodenum. A careful inspection was made as the upper endoscope was withdrawn including a retroflexed examination of the proximal stomach; Findings and interventions are described below. Findings: Larynx: Normal Esophagus: GE junction at 35 cms.? Esophagitis seen on last EGD has healed. GE junction with 1 cms tongue of Malave's - biopsies obtained for histology and tissue cypher. Stomach:?A few 5-8 mm benign appearing polyps in the gastric fundus - one polyp was removed with a cold biopsy. Mild gastric erythema. Biopsies obtained during last EGD were negative for H Pylori. Grade 2 flap valve and intact fundal wrap on retroflexed examination of the cardia. Duodenum:?Normal bulb and descending duodenum.? Intervention: Biopsies as noted above COLONOSCOPY PROCEDURE NOTE Instrument: Olympus PCF H 190 L variable stiffness pediatric colonoscope Monitoring: Vital signs and clinical assessment, intermittent blood pressure monitoring, continuous EKG monitoring, Pulse oximetry and Carbon Dioxide monitoring were done throughout the procedure. Please see anesthesia flowsheet. Colon withdrawl time was 21 minutes. Procedure: The patient was placed in the left lateral decubitis position and pre-procedure medications were administered. After a digital rectal examination of the ano-rectum, the video colonoscope was inserted into the rectum and advanced through the colon to the cecum. The colonoscope was slowly withdrawn in a retrograde panoramic fashion and the colon mucosa was carefully examined including a retroflexed view of the rectum. Findings and interventions are described below. Procedure Difficulty: without difficulty Findings: Terminal Ileum: Not evaluated Cecum: A 3-4 mm sessile polyp - removed with a cold biopsy Ascending Colon: Normal Transverse Colon: Three 5 to 10 mm sessile polyps - removed with a cold snare Descending Colon: Moderate diverticulosis Sigmoid Colon: Severe diverticulosis with luminal narrowing Rectum: Normal Ano-rectum: Moderate internal hemorrhoids Colon preparation: Good after copious irrigation. [place] Bowel Preparation Scale Right colon; 2 Transverse colon: 2 Left colon; 2 (0 = Unprepared colon segment with mucosa not seen due to solid stool that cannot be cleared. 1 = Portion of mucosa of the colon segment seen, but other areas of the colon segment not well seen due to staining, residual stool and/or opaque liquid. 2 = Minor amount of residual staining, small fragments of stool and/or opaque liquid, but mucosa of colon segment seen well. 3 = Entire mucosa of colon segment seen well with no residual staining, small fragments of stool or opaque liquid) Impression and Post Procedure Diagnosis: Endoscopy Findings: ESOPHAGUS: STOMACH: DUODENUM: Colonoscopy Findings: Four small to medium sized polyps were removed Moderate diverticulosis seen in the left colon Moderate hemorrhoids on retroflexed exam. Plan: Pt has a FU appointment on 12/13/[address] Burger Repeat Colonoscopy in 3-5 years if polyps are adenomatous and 10 year if polyps are hyperplastic. Above findings were reviewed with the patient and relevant handouts were given and the discharge area.
[2024-11-30 13:38] VITALS: BP 147/78; PULSE 79; RESP 16; TEMP 36.9; O2SAT 98
[2024-11-30 13:53] VITALS: BP 174/88; PULSE 67; RESP 16; TEMP 36.9; O2SAT 99
== END 2024-11-30 14:12 | disposition home or self-care (01) ==
PROVIDERS: PCP Internal Medicine; Visit Provider Internal Medicine Gastroenterology
PROC: (CPT 45385; principal; 2024-11-30 12:50)
DX: Z12.11 Encounter for screening for malignant neoplasm of colon (principal); K57.30 Diverticulosis of large intestine without perforation or abscess without bleeding; K64.8 Other hemorrhoids; K31.7 Polyp of stomach and duodenum; K29.60 Other gastritis without bleeding; K20.80 Other esophagitis without bleeding; K22.70 Barrett's esophagus without dysplasia; K21.9 Gastro-esophageal reflux disease without esophagitis; R68.81 Early satiety; I10 Essential (primary) hypertension; E78.5 Hyperlipidemia, unspecified; I48.0 Paroxysmal atrial fibrillation; J45.909 Unspecified asthma, uncomplicated; G47.33 Obstructive sleep apnea (adult) (pediatric); Z79.01 Long term (current) use of anticoagulants; Z79.899 Other long term (current) drug therapy; Z90.49 Acquired absence of other specified parts of digestive tract; Z90.710 Acquired absence of both cervix and uterus
CPT/HCPCS: 45385; 45380; 43239; 82947; 88305; 88313; J2003; J2704

== ENCOUNTER → 2024-11-30 11:05 | Outpatient (BNV) | payer OTHER, SELFPAY | PROVIDERS: PCP Internal Medicine; Visit Provider Internal Medicine Gastroenterology | DX: Z12.11 Encounter for screening for malignant neoplasm of colon (principal); D12.3 Benign neoplasm of transverse colon; K63.5 Polyp of colon; K57.30 Diverticulosis of large intestine without perforation or abscess without bleeding; K64.8 Other hemorrhoids; K29.70 Gastritis, unspecified, without bleeding; K31.7 Polyp of stomach and duodenum; K22.70 Barrett's esophagus without dysplasia; K20.90 Esophagitis, unspecified without bleeding | CPT/HCPCS: 43239; 45380; 45385 ==

== ENCOUNTER 2024-12-04 09:12 | Outpatient (AMB) | payer OTHER, SELFPAY ==
[2024-12-04 09:21] VITALS: BP 130/70; PULSE 72; O2SAT 97; BMI 39.9
--- NOTE | 2024-12-04 09:21 | A.OFFPC_ITS ---
Vital Signs 12/04/24 09:21 Height 5 ft 2 in Weight 218 lb BMI 39.9 BP 130/70 Blood Pressure Location Lt brachial Position Sitting Pulse 72 Pulse Source Pulse Oximeter Pulse Oximetry (%) 97 Intake Visit Reasons: 4m follow up Intake Note: pt is here for 4 mon f.up, last a1c was done on 09/2024 7.1 High Scaler Required: No Accompanied by: Self / Same As Patient Allergies ibuprofen [IBUPROFEN] Allergy (Mild, Verified 12/04/24 09:22) RASH, hives Medication List - Last Reconciled 12/04/24 by SHELDON Sanches- acetaminophen ER (Tylenol 8 Hour) 650 mg PO Q12H PRN albuterol sulfate 5 mg inhalation Q4H PRN albuterol sulfate 90 mcg/actuation 2 puffs inhalation Q20M PRN amlodipine 10 mg PO DAILY 90 days aripiprazole 5 mg PO DAILY atorvastatin 20 mg PO DAILY blood pressure kit-extra large As directed blood sugar diagnostic (InMyShow Ultra Test strips) Use to check blood sugar twice daily: fasting blood sugar and a random blood sugar blood-glucose meter (InMyShow Ultra2 Meter) Use to check blood sugar twice daily: fasting blood sugar and a random blood sugar buspirone 15 mg PO BID carvedilol 25 mg PO BID cholecalciferol (vitamin D3) 50 mcg PO DAILY clonidine HCl 0.1 mg PO BID 30 days diclofenac sodium 1% (Arthritis Pain (diclofenac)) 4 grams topical QID 30 days dicyclomine 20 mg PO BID PRN 90 days docusate sodium 100 mg PO BEDTIME empagliflozin (Jardiance) 10 mg PO DAILY flash glucose scanning reader (ID [employer] Susu 2 [place]) As directed flash glucose sensor (FreeStyle Susu 2 Sensor kit) test blood sugar 4 times per day fluticasone propionate 110 mcg/actuation 1 puff inhalation BID 30 days gabapentin 100 mg PO BEDTIME 30 days humidifiers As directed hydrochlorothiazide 25 mg PO DAILY 30 days hydroxyzine HCl 10 mg PO TID PRN incontinence pad, liner, disp use daily for incont ketoconazole 2% 1 appl topical DAILY lancets (InMyShow Delica Lancets) Use to check blood sugar twice daily: fasting blood sugar and a random blood sugar magnesium oxide 400 mg PO BEDTIME 30 days melatonin 3 mg PO QPM naloxone 4 mg/actuation (Narcan) 4 mg intranasal Q2M PRN omeprazole 20 mg PO BID 90 days rivaroxaban (Xarelto) 20 mg PO DAILY sennosides-docusate sodium 8.6-50 mg (Senna Plus) 2 tab-caps (2 x 8.6-50 mg) PO BEDTIME 60 days sertraline 100 mg PO DAILY spironolactone 25 mg PO BID tizanidine 4 mg PO TID PRN zolpidem 5 mg PO BEDTIME PRN Tobacco use date assessed: 12/04/24 Dental Screening Dental Screen Date: 12/04/24 Did you have a dental visit in the last 12 months?: Yes Did you have a dental problem in the last 6 months where you did not have access to dental care?: No Was dental information given to patient?: Patient has dentist HPI 4m follow up HPI Details Chief Complaint Follow-up for Type 2 Diabetes Mellitus History of Present Illness The patient is a 59-year-old female presenting with a follow-up for Type 2 Diabetes Mellitus. She has a history of morbid obesity and reports the use of a cane. The patient experiences neuropathy and polydipsia but denies polyuria. She reports that she is having difficulty using her glucometer, which is relatively new, suggesting potential educational needs. Her last HbA1c in September was recorded at 7.1%. The patient is currently under the care of a motor tune up specialist and a engineering and development director, and she has recently consulted with a international trade manager. There is no reported history of chest pain or dyspnea. She confirms her eye examinations are current with an upcoming follow-up appointment. Additionally, s he is not presently taking Lisinopril. The management plan includes a dose adjustment of Jardiance for better glycemic control. Social History - Functional status: Uses a cane for amb ulation - Education and skills: Requires educati on on the use of a glucometer Health Maintenance - Eye exam: Up to date with a follow-up appointment scheduled - Diabetes management: HbA1c last record ed at 7.1% in September Review of Systems - Neurological: Reports neuropathy - Endocrine: Reports polydipsia; Denies polyuria - Cardiovascular: Denies chest pain - Respiratory: Denies shortness of breat h Physical Exam General: Cooperative, morbidly obese, comfortable, no acute distress and well developed Orientation: Patient oriented x3 Limitations: Uses a cane Head: Normal to inspection Ears: Hearing grossly normal bilaterally Nose: Normal external nose present Face and sinus: Normal facial exam Eyes: Appearance normal, both eyes and all related structures Neck: Normal visual inspection and Yes full ROM Respiratory: Normal respiratory effort and able to speak in complete sentences. Clear to auscultation bilaterally Cardiovascular: Regular rate and rhythm. Normal S1 and S2 GI: Normal to inspection. Soft to palpation and nontender Skin: No rashes or lesions noted Neuro: Patient oriented x3, reports neuropathy Extremities: feet are intact bilat, + sensation with use of monofilament Results Plan - Increase Jardiance dosage from 10 mg t o 25 mg to improve glycemic control. - Arrange follow-up with a nurse navigat or for education on glucometer usage. - Confirm follow-up appointments with ne phrologist and engineering and development director. - Order urinalysis and additional labs a fter overnight fasting. Patient was informed and verbally consented to the use of an ambient scribe for clinic note documentation during this visit. Discussion Notes I discussed with the patient the importance of proper diabetes management and the plan to increase her Jardiance dosage for better sugar control. We reviewed the need for education on the glucometer use, and arrangements were made for follow-up with a nurse navigator. I emphasized the significance of keeping her scheduled appointments with the motor tune up specialist and engineering and development director and maintaining regular eye exams. We also agreed on obtaining urinalysis and additional lab work to monitor her kidney function and overall metabolic status after a period of fasting. Patient Instructions - Increase Jardiance from 10 mg to 25 mg as directed. - Schedule and attend a session with the nurse navigator to learn glucometer usage. - Keep all upcoming appointments with [facility] motor tune up specialist and engineering and development director. - Continue eye care follow-up as planned . - Fast overnight before your next schedu led lab test. - Report any new or worsening symptoms. [facility] Medical History PAF (paroxysmal atrial fibrillation) Barretts esophagus Hx of flexible sigmoidoscopy Osteoarthritis of left hip Spondylosis without myelopathy or radiculopathy, 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 Sacroiliitis Asthma WENDY (obstructive sleep apnea) Morbid obesity Swelling of both lower extremities Afib Disc degeneration, lumbar Cervical pain (neck) Calcaneal spur Benign neoplasm breast skin Bursitis, shoulder Xanthelasma Auditory hallucinations Impaired glucose tolerance Hyperlipidemia Anxiety Depression Adenomatous polyp of colon Esophagitis Hypertensive urgency Palpitations HTN (hypertension) Dyspepsia GERD (gastroesophageal reflux disease) Surgical History Hx of colonoscopy H/O esophagogastroduodenoscopy (09/01/15) Status post Margarita fundoplication (10/27/12) History of removal of cyst Hx of cholecystectomy History of hysterectomy Family History Father CVD (cardiovascular disease) HTN (hypertension) Diabetes Mother HTN (hypertension) Diabetes CVD (cardiovascular disease) Brother Pacemaker Maternal Grandmother Throat cancer Brother No problems noted. Daughter Hx LEEP (loop electrosurgical excision procedure), cervix, Other Mental health disorder Substance use disorder Social History Household Members: None Housing: House Are you a primary rn intensive care unit to a significant other at home: No Do you presently have visiting nurse or other home services: No Alcohol intake: never Patient Tobacco Use Status: Never used Tobacco e-Cigarette/Vaping Use: Never Used Second Hand Smoke Exposure: No Advance Directives Date on File: 03/16/21 service: No Current occupational status: disabled Sexual orientation: Straight/Heterosexual Gender identity: Female Cognitive needs: No Hearing needs: No Vision needs: No Questionnaire PHQ-9 Over the last 2 weeks, how often have you been bothered by any of the following problems? 1. Little interest or pleasure in doing things: several days 2. Feeling down, depressed, or hopeless: several days 3. Trouble falling or staying asleep, or sleeping too much: several days 4. Feeling tired or having little energy: several days 5. Poor appetite or overeating: several days 6. Feeling bad about yourself - or that you are a failure or have let yourself or your family down: not at all 7. Trouble concentrating on things, such as reading the newspaper or watching television: several days 8. Moving or speaking so slowly that other people could have noticed. Or the opposite - being so fidgety or restless that you have been moving around a lot more than usual: several days 9. Thoughts that you would be better off or of hurting yourself in some way: not at all Total score: 7 Depression Screening Interpretation: Negative Depression Screening Done: Yes 52205 - PHQ-9 Billing: Yes Source: Developed by Drs. Leonardo Grant, Philly Velasquez, Jose Ramon Poon and colleagues, with an educational gifty from [email or web address]. Thrive Questionnaire Date Thrive assessed: 12/04/24 I am a: Patient What is your living situation today?: I have a steady place to live Within the past 12 months, did the food you bought not last and you didn't have the money to get more?: Often true Within the past 12 months, did you worry whether your food would run out before you got money to buy more?: Never true Do you have trouble paying for medicines?: No Do you have trouble getting transportation to medical appointments?: No Do you have trouble paying your heating and electricity bill?: No Do you have trouble taking care of your child, family member or friend?: No Do you have trouble with day-to-day activities such as bathing, preparing meals, shopping, managing finances, etc.?: Yes Are you currently unemployed and looking for a job?: No Are you interested in more education?: No Please select the resources that you would like help with: None Currently or been in a relationship where the following occur: No concerns reported THRIVE Score: 1 AUDIT C Alcohol Use Questionnaire (AUDIT-C) 1. How often do you have a drink containing alcohol?: Never 3. How often do you have six or more drinks on one occasion?: Never Total Score: 0 Score Reviewed/Action Taken: Yes DION-7 AMB Questionnaire DION-7 Date DION - 7 assessed: 12/04/24 Feeling nervous, anxious, or on edge: 1 = Several days Not being able to stop or control worryin = Several days Worrying too much about different things: 1 = Several days Trouble relaxin = Several days Being so restless that it is hard to sit still: 1 = Several days Becoming easily annoyed or irritable: 0 = Not at all Feeling afraid as if something awful might happen: 1 = Several days Total DION-7 score (0-4 normal; 5-9 mild; 10-14 moderate; 15-21 severe): 6 Source: Developed by Drs. Leonardo Grant, Philly Velasquez, Jose Ramon Poon and colleagues, with an educational gifty from [email or web address]. DION-7 Assessment Billing DION-7 Assessment Tool: DION-7 Assessment 10006 Physical exam (Primary Care) Vital Signs: Last Vital Signs Pulse 72 12/04/24 09:21 BP 130/70 12/04/24 09:21 Pulse Ox 97 12/04/24 09:21 BMI result Body Mass Index 39.9 Tobacco/Smoking Status: Tobacco use Status Tobacco use date assessed 12/04/24 12/04/24 09:23 Patient Tobacco Use Status Never used Tobacco 12/04/24 09:23 e-Cigarette/Vaping Use Never Used 12/04/24 09:23 PHQ-9: PHQ-9 Score PHQ-9: Total score 7 12/04/24 09:52 Depression Screening Interpretation: Negative Thrive Assessment: Date of Thrive Assessment Date Thrive assessed 12/04/24 12/04/24 09:23 Currently or been in a relationship where the following occur: No concerns reported Coding Level of Care Code Est Pt Level 3 (39235) Diagnoses Type 2 diabetes mellitus with diabetic nephropathy, without long-term current use of insulin E11. Diabetes mellitus complication detail: with nephropathy Diabetes mellitus complication status: with kidney complications Diabetes mellitus longterm insulin use: without longterm use Diabetes mellitus type: type 2 Additional Codes DION-7 Assessment Billing - DION-7 Assessment Tool: DION-7 Assessment 26984 ([id number]) PHQ-9 - 24232 - PHQ-9 Billing: Yes ([id number]) Assessment & Plan Assessment & Plan (1) Diabetes: Code(s): E11.9 - Type 2 diabetes mellitus without complications Category: Medical Qualifiers: Diabetes mellitus complication detail: with nephropathy Diabetes mellitus complication status: with kidney complications Diabetes mellitus intermediate designer insulin use: without longterm use Diabetes mellitus type: type 2 Qualified Code(s): E11.21 - Type 2 diabetes mellitus with diabetic nephropathy Plan . Orders: Orders TSH reflex Free T4 Today E11.21 - Type 2 diabetes mellitus with diabetic nephropathy Complete Blood Count Auto Diff Today E11.21 - Type 2 diabetes mellitus with diabetic nephropathy Comprehensive Burns. Panel Fast Today E11.21 - Type 2 diabetes mellitus with diabetic nephropathy UA CC w/rflx Micro + Cult Today E11.21 - Type 2 diabetes mellitus with diabetic nephropathy Lipid Panel Today E11.21 - Type 2 diabetes mellitus with diabetic nephropathy Microalbumin, Random (w Creat) Today E11.21 - Type 2 diabetes mellitus with diabetic nephropathy Referrals Nurse Navigator Referral E11.21 - Type 2 diabetes mellitus with diabetic nephropathy Medications: Changed From empagliflozin (Jardiance) 10 mg PO DAILY 90 tabs 1RF To empagliflozin 25 mg PO DAILY 90 tabs 1RF 90 days
== END 2024-12-04 10:44 | disposition home or self-care (01) ==
PROVIDERS: PCP Nurse Practitioner Family; Visit Provider Nurse Practitioner Family
DX: E11.21 Type 2 diabetes mellitus with diabetic nephropathy (principal)

== ENCOUNTER → 2024-12-04 09:12 | Outpatient (BNVA) | payer OTHER, SELFPAY | PROVIDERS: PCP Nurse Practitioner Family; Visit Provider Nurse Practitioner Family | DX: E11.21 Type 2 diabetes mellitus with diabetic nephropathy (principal) | CPT/HCPCS: 96127; 99212 ==

== ENCOUNTER 2024-12-05 09:42 | Outpatient (REF) | payer OTHER, SELFPAY ==
[2024-12-05 13:00] LABS: MANUAL DIFF FLAG NO
[2024-12-05 13:14] LABS: Appearance Urine Clear; Color Urine Yellow; Glucose Urine UA >=1000 mg/dL (Negative); Leukocyte Esterase Urine Trace (Negative); Nitrite Urine Negative (Negative); UMIC TRIGGER UACC YES; Urine Blood Negative (Negative); Urine Ketones Negative (Negative); Urine Protein Trace mg/dL (Neg-Trace)
[2024-12-05 13:19] LABS: Bacteria Urine 1+ (None Seen); Hyaline Casts Urine 0-2 /LPF (0-2); RBC Urine 0-2 /HPF (0-2); WBC Urine 0-5 /HPF (0-5)
[2024-12-05 13:22] LABS: Basophils Percent Auto 0.6 % (0-2); Eosinophils Absolute Auto 0.2 X10*3/uL (0.0-0.4); Eosinophils Percent Auto 2.2 % (0-4); Hemoglobin 13.1 g/dl (12.0-16.0); Imm Gran Abs Auto 0.02 X10*3/uL (0.00-0.03); Imm Gran Pct Auto 0.3 % (0.0-0.4); Lymphocytes Absolute Auto 1.8 X10*3/uL (1.2-4.9); Lymphocytes Percent Auto 25.5 % (20-40); Mean Corpuscular Hemoglobin 25.9 pg (27.0-33.0); Monocytes Absolute Auto 0.5 X10*3/uL (0.1-1.2); Monocytes Percent Auto 6.7 % (2-11); Neutrophils Absolute Auto 4.7 x10*3/uL (2.0-8.3); Neutrophils Percent Auto 64.7 % (45-73); Platelet Count 277 X10*3/uL (160-400); Red Blood Count 5.06 X10*6/uL (4.20-5.50); Red Cell Distribution Width 15.6 % (11.0-16.0); White Blood Count 7.2 X10*3/uL (4.8-10.8)
[2024-12-05 13:37] LABS: Alanine Aminotransferase 33 U/L (0-31); Albumin Level 3.7 g/dL (3.5-5.0); Alkaline Phosphatase 129 U/L (39-117); Anion Gap 9 (12-20); Aspartate Amino Transferase 28 U/L (5-31); Bilirubin Total 0.6 mg/dL (0.0-1.0); Blood Urea Nitrogen 17 mg/dL (9-16); Calcium 8.8 mg/dL (8.4-10.2); Carbon Dioxide 24 mmol/L (22-29); Chloride 115 mmol/L (96-108); Cholesterol 154 mg/dL (<200); Estimated Glomerular Filt Rate > 60; Glucose Fasting 115 mg/dL (60-99); HDL Cholesterol 53 mg/dL (>40); LDL Cholesterol Calculated 85 mg/dL (<100); Potassium 3.8 mmol/L (3.3-5.1); Sodium 144 mmol/L (135-145); Total Protein 6.9 g/dL (6.5-8.0); Triglycerides 84 mg/dL (<150)
[2024-12-05 13:41] LABS: Creatinine Urine 99.22 mg/dL
[2024-12-05 13:57] LABS: TSH reflex Free T4 1.04 uIU/mL (0.32-4.0)
== END 2024-12-05 09:43 | disposition home or self-care (01) ==
LOC: HO.HMGCLDS 09:42
PROVIDERS: PCP Nurse Practitioner Family; Visit Provider Nurse Practitioner Family
DX: E11.21 Type 2 diabetes mellitus with diabetic nephropathy (principal)
CPT/HCPCS: 36415; 80053; 80061; 81001; 82043; 82570; 84443; 85025

== ENCOUNTER 2024-12-13 10:32 | Outpatient (AMB) | payer OTHER, SELFPAY ==
--- NOTE | 2024-12-13 10:38 | A.OFFVIS_ITS ---
Vital Signs 12/13/24 10:39 Height 5 ft 2 in Weight 218 lb BMI 39.9 BP 156/72 H Blood Pressure Location Lt brachial Position Sitting Pulse 82 Intake Visit Reasons: s/p egd/colon Intake Note: Patient 4 month follow up for Malave's esophagus without dysplasia and EGD/Colonoscopy results. Patient denies any GI issues for today visit. Air Pollution Inspector Required: No Accompanied by: Self / Same As Patient Allergies ibuprofen [IBUPROFEN] Allergy (Mild, Verified 12/13/24 10:37) RASH, hives Medication List - Last Reconciled 12/13/24 by Mara Burger MD acetaminophen ER (Tylenol 8 Hour) 650 mg PO Q12H PRN albuterol sulfate 5 mg inhalation Q4H PRN albuterol sulfate 90 mcg/actuation 2 puffs inhalation Q20M PRN amlodipine 10 mg PO DAILY 90 days aripiprazole 5 mg PO DAILY atorvastatin 20 mg PO DAILY blood pressure kit-extra large As directed blood sugar diagnostic ([employer] Ultra Test strips) Use to check blood sugar twice daily: fasting blood sugar and a random blood sugar blood-glucose meter ([employer] Ultra2 Meter) Use to check blood sugar twice daily: fasting blood sugar and a random blood sugar buspirone 15 mg PO BID carvedilol 25 mg PO BID cholecalciferol (vitamin D3) 50 mcg PO DAILY clonidine HCl 0.1 mg PO BID 30 days diclofenac sodium 1% (Arthritis Pain (diclofenac)) 4 grams topical QID 30 days dicyclomine 20 mg PO BID PRN 90 days docusate sodium 100 mg PO BEDTIME empagliflozin 25 mg PO DAILY 90 days flash glucose scanning reader (AliveCorStyle Susu 2 [place]) As directed flash glucose sensor (AliveCorStyle Susu 2 Sensor kit) test blood sugar 4 times per day fluticasone propionate 110 mcg/actuation 1 puff inhalation BID 30 days gabapentin 100 mg PO BEDTIME 30 days humidifiers As directed hydrochlorothiazide 25 mg PO DAILY 30 days hydroxyzine HCl 10 mg PO TID PRN incontinence pad, liner, disp use daily for incont ketoconazole 2% 1 appl topical DAILY lancets ([employer] Delica Lancets) Use to check blood sugar twice daily: fasting blood sugar and a random blood sugar magnesium oxide 400 mg PO BEDTIME 30 days melatonin 3 mg PO QPM naloxone 4 mg/actuation (Narcan) 4 mg intranasal Q2M PRN omeprazole 20 mg PO BID 90 days rivaroxaban (Xarelto) 20 mg PO DAILY sennosides-docusate sodium 8.6-50 mg (Senna Plus) 2 tab-caps (2 x 8.6-50 mg) PO BEDTIME 60 days sertraline 100 mg PO DAILY spironolactone 25 mg PO BID tizanidine 4 mg PO TID PRN zolpidem 5 mg PO BEDTIME PRN HPI HPI s/p egd/colon: Details: GI CLINIC VISIT FOR THIS 59-YEAR-OLD MOSOTHO-SPEAKING FEMALE FOR RECTAL BLEEDING, COLON POLYPS AND MALAVE'S ESOPHAGUS. PATIENT IS ON XARELTO FOR PAROXYSMAL ATRIAL FIBRILLATION AND IS FOLLOWED BY DR. LIZAMA ?CHRONIC ILLNESSES:?depression, anxiety, hypertension, sleep apnea, asthma, hyperlipidemia, impaired glucose tolerance, GERD with hiatal hernia, gallstones, auditory hallucinations, xanthelasma, bursitis of shoulder, benign neoplasm of skin and breast, chronic low back pain, calcaneal spur, bile salt induced diarrhea TODAY'S VISIT Pt declined a Dispatcher Maintenance EGD and colon results reviewed with the patient. Advised repeat EGD and Colon in 3 years Denies any GI problems PAST VISITS: Patient feel she is not digestive her food, abd hernia pain, and constipation on and off. Had dinner at 6:30 pm yesterday (Had broccoli, aspragus and steak) and feels like she ate today BM can vary between constipation and soft BM Sometimes she has to strain to have a BM. Notes intermittent lower cramps lasting for 5 minutes (usually twice a day) Denies rectal bleeding EGD results reviewed. Feels good and denies recent black stools Intentional wt loss of 50 lbs Nausea is better - denies nausea, abd pain or diarrhea. Weight and appetite has been stable. Accompanied by her daughter (works as an MA in wt management at [employer]) who interpreted for the pt Sometimes resolves after eating and sometimes persists. Notes heartburn mostly during the day. Has dinner at 5 pm and goes to bed at midnight - sometimes has a late night snack. Denies dysphagia. Abdominal pain is better. Has post prandial diarrhea since her GB surgery. Sometimes notes stinging in the rectum and there can be clear red blood on the TP. EGD and Colonoscopy and bx results were reviewed ? ? ? Denies recurrent abdominal pain. ? ? ? Patient notes improvement in dysphagia since esophageal balloon dilation ? ? ? Constipation has improved since she had her colonoscopy ?Complains of constant blanca-umblical abd pain for the past 3 days. ? ? ? Never had this pain in the past. ? ? ? Pain is 6/10 in intensity and is burning in character. ? ? ? Complains of nausea and has not been eating. ?? ? Vomited yesterday. ?? ? Denies fever or chills or any change in bowel habits.. ?? ? Took pork chops and st helenian fries 10 min before the pain started. ? ? ? Tried peptobismol and it did not help the pain. ? Feeling better, diagnosed with COVID infection last month and has recovered. ? Fever and body aches have cleared up ? Denies being constipated or having ongoing rectal bleeding. ? ? ? Having a lot of heartburn -? advised to increase omeprazole to 20 mg twice daily. ? Notes improvement in constipation - BM 1-2 times a day ? Notes some stinging when she uses the bathroom.. ? Denies blanca-anal pain/discomfort. Has not been using any topical agent for hemorrhoids. ? Denies ongoing diarrhea. ? Post prandial fullness after taking 5-6 bites has improved ? Takes 1-2 meals a day depending on her appetite. ? Has gained weight since the [facility] ?LABS IN [facility]:?12/14/19 NORMAL CHEM PANEL AND LFTS EXCEPT MILD INCREASE IN ALK P OF 131 ? 10/09 STOOL FOR H PYLORI ANTIGEN WAS NEGATIVE. ?IMAGING STUDIES: 01/01/21 ABDOMINAL US WAS NORMAL: ? LIVER: Normal. The liver is normal in size. The liver contour is normal. Parenchymal echogenicity is normal. No focal hepatic lesion. There is no intrahepatic biliary duct dilatation seen. GALLBLADDER: Surgically absent. COMMON BILE DUCT: Normal in caliber measuring 0.2 cm in diameter. 01/10/20 GASTRIC EMPTYING STUDY SHOWED:? Retention in the stomach at each time interval was: ? 1 hour 59% (normal 37%-90%) ? 2 hours 6% (normal 30%-60%) ? 3 hours 5% ? 4 hours (Not Obtained) (normal 0%-10%) ? IMPRESSION: ? Normal solid food gastric emptying study. ? 08/[address] SCAN SHOWED: ? No evidence for acute abdominal or pelvic inflammatory or infectious processes. ? Small hiatal hernia. ?ENDOSCOPIC STUDIES; 01/26/23 EGD WAS PERFORMED BY DR CALDWELL FOR EVALUATION OF BLACK STOOLS: EGD Findings:? * Esophagus:? Severe esophagitis noted at the GEJ at 34 cm. One ulcer with small clot was seen at 6 o clock position. The ulcer started oozing after the clot was flushed off. A resolution 360 Endoclip was placed for hemostasis. The Z line was at 34 cm. Hiatal hernia was noted with diaphragmatic pinch at 36 cm. * Stomach: Scattered erosions and heme were noted mostly in the body and antrum. Random gastric biopsies were taken to rule out H Pylori infection. * Duodenum: ? A focal area with villous effacement and erythema was noted in the 2nd portion of the duodenum.? Cold forceps biopsies were taken.? Remaining duodenum normal.?EGD Impressions:? * Severe esophagitis with ulcer (endoclip) * Gastritis (biopsy) * Normal duodenum (biopsy)??Recommendations:?? * Follow biopsy results. Our office will call or send a letter with results within 7-10 days. * ?continue omeprazole 20 mg b.i.d. for at least 8 weeks and then decrease to 20 mg per day.? * Repeat EGD will be scheduled in 8-10 weeks to assess for healing of esophagitis. * Resume anticoagulation tomorrow. * If H pylori +, patient will be prescribed eradication therapy followed by test of cure. * Avoid NSAIDs. 02/13/21 EGD AND COLONOSCOPY SHOWED:? ESOPHAGUS: Focal esophagitis at GE junction with 1 cms tongue of Malave's - biopsied. Balloon dilation was performed with 19 and 20 mm CRE balloon x 60 seconds at each level. STOMACH: Gastritis and intact fundal wrap on retroflexed exam Colonoscopy Findings:? No polyps were detected. Moderate diverticulosis seen in the left colon Moderate hemorrhoids on retroflexed exam. Plan: Repeat Colonoscopy interval based on path results - in 3 years due to fair prep. Above findings were reviewed with the patient and GERD and diverticulosis handouts were given in the discharge area BIOPSIES SHOWED: A.? Small bowel, biopsy:? Duodenal mucosa within normal limits. B.? Stomach, antrum, biopsy:? Antral-type mucosa with mild chronic inactive inflammation; no Helicobacter organisms seen. C.? Esophagus, biopsy: - Malave esophagus with background moderate chronic active inflammation. - No dysplasia seen. - Chronic esophagitis. 11/22/19 EGD AND FLEXIBLE SIGMOIDOSCOPY SHOWED:? Endoscopy Findings: ? LARYNX: Normal ? ESOPHAGUS: Small hiatal hernia, minimal esophagitis and possible Malave's. ? STOMACH: Gastritis ? DUODENUM: Normal ? Flexible sigmoidoscopy Findings: ? One polyp removed ? Moderate diverticulosis seen in the sigmoid colon ? Moderate hemorrhoids on retroflexed exam - likely source of rectal bleeding. ? Plan: ? Await pathology results ? Patient has an appointment on 11/29/2019 in the GI Clinic with Mara Burger M.D. ? Pt to schedule a Colonoscopy interval based on path results - in 1-2 years if ? polyps are adenomatous and 10 years if polyps are hyperplastic. ? Above findings were reviewed with the patient. ? BIOPSIES SHOWED: ? A. Small bowel, biopsy: Small bowel mucosa with no significant histopathology; ? no villous abnormality identified; no increase in intraepithelial lympho cytes. ? B. Stomach, biopsy: Gastric mucosa with mild chronic, inactive gastritis; ? negative for Helicobacter pylori organisms; negative for intestinal metaplasia; negative for ? dysplasia. ? C. Esophagus, distal, biopsy: Esophagogastric junctional mucosa with moderate ? chronic inflammation and intestinal metaplasia (see Comment); negative for dysplasia; ? squamouS epithelium with reactive features suggestive of reflux disease. ? D. Colon, random, biopsy: Colonic mucosa within normal limits; no evidence of microscopic colitis. ? E. Colon, sigmoid polyp, polypectomy: Tubular adenoma. ? Comment: The findings are consistent with Malave's esophagus in the appropriate clinical/endoscopic setting. ? LETTER SENT ADVISING COLONOSCOPY IN [facility] Medical History (Updated 12/05/24 @ 17:09 by Alfredo Massey, [facility]) PAF (paroxysmal atrial fibrillation) Barretts esophagus Hx of flexible sigmoidoscopy Osteoarthritis of left hip Spondylosis without myelopathy or radiculopathy, 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 Sacroiliitis Asthma WENDY (obstructive sleep apnea) Morbid obesity Swelling of both lower extremities Afib Disc degeneration, lumbar Cervical pain (neck) Calcaneal spur Benign neoplasm breast skin Bursitis, shoulder Xanthelasma Auditory hallucinations Impaired glucose tolerance Hyperlipidemia Anxiety Depression Adenomatous polyp of colon Esophagitis Hypertensive urgency Palpitations HTN (hypertension) Dyspepsia GERD (gastroesophageal reflux disease) Surgical History Hx of colonoscopy H/O esophagogastroduodenoscopy (09/01/15) Status post Margarita fundoplication (10/27/12) History of removal of cyst Hx of cholecystectomy History of hysterectomy Family History Father CVD (cardiovascular disease) HTN (hypertension) Diabetes Mother HTN (hypertension) Diabetes CVD (cardiovascular disease) Brother Pacemaker Maternal Grandmother Throat cancer Brother No problems noted. Daughter Hx LEEP (loop electrosurgical excision procedure), cervix, Other Mental health disorder Substance use disorder Social History Household Members: None Housing: House Are you a primary health care legal assistant to a significant other at home: No Do you presently have visiting nurse or other home services: No Alcohol intake: never Patient Tobacco Use Status: Never used Tobacco e-Cigarette/Vaping Use: Never Used Second Hand Smoke Exposure: No Advance Directives Date on File: 03/16/21 service: No Current occupational status: disabled Sexual orientation: Straight/Heterosexual Gender identity: Female Cognitive needs: No Hearing needs: No Vision needs: No Review of Systems Const All systems reviewed & are unremarkable except as noted in HPI and below Physical Exam Vital Signs: Last Vital Signs Pulse 82 12/13/24 10:39 BP 156/72 H 12/13/24 10:39 BMI result Body Mass Index 39.9 Const General: healthy appearing and no acute distress Nutritional Appearance: average body habitus Orientation/consciousness: patient oriented x3 Limitations: language barrier and ambulation with cane HEENT Head: Yes normal to inspection Ears: hearing grossly normal bilaterally Eyes Sclerae: sclerae normal Pupils: Equal, round and reactive pupils present Neck Neck: Yes normal visual inspection Chest Chest palpation & inspection: normal inspection of the chest Resp Effort & Inspection: normal respiratory effort Auscultation: clear to auscultation bilaterally Cardio Palpation: normal PMI Rate: regular rate Rhythm: regular rhythm Heart sounds: S1 normal heart sound present, S2 normal heart sound present and no murmurs GI Palpation (GI): Soft to palpation, nontender and No hepatosplenomegaly present Auscultation: normal bowel sounds Rectal Exam - Female: deferred Skin General skin exam: no rashes or lesions noted Neuro General: patient oriented x3, gait normal and moves all extremities Cranial nerves: Yes Equal, round and reactive pupils present Psych Appearance: grossly normal Mental Status: mental status grossly normal Assessment & Plan Assessment & Plan (1) Adenomatous polyp of colon: Code(s): D12.6 - Benign neoplasm of colon, unspecified Category: Medical (2) GERD (gastroesophageal reflux disease): Code(s): K21.9 - Gastro-esophageal reflux disease without esophagitis Category: Medical (3) Early satiety: Comment: 12/2019 gastric emptying study was normal Code(s): R68.81 - Early satiety Category: Medical (4) Chronic constipation: Code(s): K59.09 - Other constipation Category: Medical (5) Continuous periumbilical abdominal pain: Comment: Resolved after colonoscopy. Code(s): R10.33 - Periumbilical pain Category: Medical (6) Malave's esophagus without dysplasia: Comment: Repeat EGD in 3 yrs (due 01/2024) Code(s): K22.70 - Malave's esophagus without dysplasia Category: Medical (7) Hemorrhoids, internal, with bleeding: Comment: start psyllium and HC cream Code(s): K64.8 - Other hemorrhoids Category: Medical (8) Elevated liver enzymes: Code(s): R74.8 - Abnormal levels of other serum enzymes Category: Medical Plan 59 year old Slovak-speaking female with depression, anxiety, hypertension, sleep apnea, asthma, hyperlipidemia, impaired glucose tolerance, GERD with hiatal hernia, auditory hallucinations, xanthelasma, bursitis of shoulder, benign neoplasm of skin and breast, chronic low back pain, calcaneal spur, bile salt induced diarrhea followed in GI for GERD, chronic constipation, history of colon polyps and hx of rectal bleeding - presumably from perianal skin lesions per patient. Patient complained of poor appetite and weight loss and reported a past history of peptic ulcer disease.? Stool test for H pylori antigen was negative PATIENT IS STATUS POST MARGARITA FUNDOPLICATION 2011. 11/08 evaluation with upper endoscopy showed a small hiatal hernia, minimal esophageal and gastritis. Same-day flexible sigmoidoscopy showed moderate sigmoid diverticulosis and internal hemorrhoids and a small tubular adenoma was removed. ?Esophageal biopsies showed presence of Malave's metaplasia.? Patient complains of symptoms of heartburn and was advised to increase omeprazole to 20 mg twice daily. Abdominal ultrasound and a gastric emptying study were normal. Symptoms are likely related to constipation and patient was advised to take MiraLax once daily with improvement in her symptoms Patient complains of periumbilical abdominal pain for the past 3 days associated with nausea and vomiting - now resolved ENDOSCOPIC STUDIES: 03/28/23 EGD SHOWED: ESOPHAGUS: Esophagitis seen on last EGD has healed. GE junction with 1 cms tongue of Malave's - biopsied. STOMACH: Mild gastritis Plan: Await pathology results BIOPSIES SHOWED: Gastroesophageal junction, biopsy: Squamocolumnar mucosa with mild inflammation and intestinal metaplasia; negative for dysplasia (see comment) Comment: These findings are consistent with Malave?s esophagus if the biopsies were taken from above the anatomic gastroesophageal junction. 01/2021 EGD AND COLONOSCOPY WERE PERFORMED: ESOPHAGUS: Focal esophagitis at GE junction with 1 cms tongue of Malave's - biopsied. Balloon dilation was performed with 19 and 20 mm CRE balloon x 60 seconds at each level. STOMACH: Gastritis and intact fundal wrap on retroflexed exam Colonoscopy Findings:? No polyps were detected. Moderate diverticulosis seen in the left colon Moderate hemorrhoids on retroflexed exam. Plan:? Repeat Colonoscopy interval based on path results - in 3 years due to fair prep - due on 01/2024. 09/16 - pt is feeling better with resolution of nausea and diarrhea 06/21/24 Had dinner at 6:30 pm yesterday (Had broccoli, aspragus and steak) and feels like she ate today BM can vary between constipation and soft BM Sometimes she has to strain to have a BM. (Of note GES was normal in Feb, 2020) 11/30/24 upper endoscopy with WATS3D(FU of Malave's) and a colonoscopy (FU of polyps) was performed and results as noted 12/13/24 Pt advised to have hepatitis serologies, iron studies and an abdominal ultrasound with elastography for evaluation of elevated LFT. She likely has fatty liver given BMI of 39.9 Repeat EGD and colon in 3 years (FU of Malave's and colon polyps) - due in Nov, 2027 FU in 3 months Orders: Orders Hepatitis A IgG Today R74.8 - Abnormal levels of other serum enzymes Hepatitis B Surface Antibody Today R74.8 - Abnormal levels of other serum enzymes Hepatitis B Core Antibody Today R74.8 - Abnormal levels of other serum enzymes IRON PROFILE Today R74.8 - Abnormal levels of other serum enzymes Hepatitis B Surface Antigen Today R74.8 - Abnormal levels of other serum enzymes Hepatitis C Antibody Today R74.8 - Abnormal levels of other serum enzymes Ferritin Today R74.8 - Abnormal levels of other serum enzymes Mitochondrial Antibody Today R74.8 - Abnormal levels of other serum enzymes US abdomen howe w elastography Today R74.8 - Abnormal levels of other serum enzymes Coding Level of Care Code Est Pt Level 4 (68866) Diagnoses Adenomatous polyp of colon D12.6 GERD (gastroesophageal reflux disease) K21.9 Early satiety R68.81 Chronic constipation K59.09 Continuous periumbilical abdominal pain R10.33 Malave's esophagus without dysplasia K22.70 Hemorrhoids, internal, with bleeding K64.8 Elevated liver enzymes R74.8 Time Spent (min) 22
[2024-12-13 10:39] VITALS: BP 156/72; PULSE 82; BMI 39.9
== END 2024-12-13 11:24 | disposition home or self-care (01) ==
PROVIDERS: PCP Nurse Practitioner Family; Visit Provider Internal Medicine Gastroenterology
DX: D12.6 Benign neoplasm of colon, unspecified (principal); K21.9 Gastro-esophageal reflux disease without esophagitis; R68.81 Early satiety; K59.09 Other constipation; R10.33 Periumbilical pain; K22.70 Barrett's esophagus without dysplasia; K64.8 Other hemorrhoids; R74.8 Abnormal levels of other serum enzymes
CPT/HCPCS: 99214

== ENCOUNTER 2024-12-13 10:32 | Outpatient (REF) | payer OTHER, SELFPAY ==
[2024-12-13 13:22] LABS: Iron 39 mcg/dL (30-160); Percent Iron Saturation 12 % (15-50); Total Iron Binding Capacity 313 mcg/dL (228-428); Unsaturated Iron Binding 274 ug/dL
[2024-12-13 13:32] LABS: Hepatitis A Antibody IgG REACTIVE (Nonreactive); ~Hepatitis A Antibody IgG 9.65 S/CO (0.00-0.99)
[2024-12-13 13:34] LABS: HBS Num1 0.68 mIU/mL (0-7.99); HBc Num1 0.05 S/CO (0.00-0.79); HBsAGNum1 0.35 S/CO (0.00-0.99); Hepatitis B Core Antibody Nonreactive (Nonreactive); Hepatitis B Surface Antigen Negative (Negative); ~HepC Num1 0.07 S/CO (0.00-0.79); ~Hepatitis B Surface Antibody NONREACTIVE (Nonreactive); ~Hepatitis C Antibody Nonreactive (Nonreactive)
[2024-12-13 13:36] LABS: Ferritin 50 ng/mL (10-250)
--- OUTSIDE RECORDS SUMMARY | 2024-12-13 14:06 | XMS_ITS | Clinical Summary ---
Author Organization [facility] Facility Address [address] [place] [id number] Care Team Providers Care Adjunct Trainer Name Role Phone Alfredo Massey NP Primary Care Provider [phone] Allergies Active Allergy Reactions Criticality Noted Date Comments Ibuprofen Hives 04/28/2022 Medications albuterol HFA (PROVENTIL HFA;VENTOLIN HFA) 108 (90 Base) MCG/ACT inhaler Inhale 2 mcg every 4 (four) to 6 (six) hours if needed Active amLODIPine (NORVASC) 10 MG tablet Take 10 mg by mouth 1 (one) time each day Active busPIRone (BUSPAR) 30 MG tablet Take 30 mg by mouth 1 (one) time each day Active fluticasone HFA (FLOVENT HFA) 110 MCG/ACT inhaler Inhale 1 puff 2 (two) times a day if needed Rinse mouth with water after use to reduce aftertaste and incidence of candidiasis. Do not swallow. Active hydrOXYzine (ATARAX) 10 MG tablet Take 10 mg by mouth 3 (three) times a day if needed for itching Active lisinopril 40 MG tablet Take 40 mg by mouth 1 (one) time each day Active oxyCODONE (OXY-IR) 5 MG immediate release capsule Take 5 mg by mouth 2 (two) times a day if needed for moderate pain Active sertraline (ZOLOFT) 100 MG tablet Take 100 mg by mouth 1 (one) time each day Active tiZANidine (ZANAFLEX) 4 MG tablet Take 4 mg by mouth every night Active Cholecalciferol (Vitamin D3) 50 MCG (1999) tablet Take 1 tablet by mouth 1 (one) time each day in the morning Active rivaroxaban (XARELTO) 20 MG tablet Take 20 mg by mouth 1 (one) time each day in the evening Active zolpidem (AMBIEN) 5 MG tablet Take 5 mg by mouth at night if needed for sleep Active hydroCHLOROthia zide 25 MG tablet Take 1 tablet (25 mg total) by mouth 1 (one) time each day 90 tablet 3 2 Active spironolactone (ALDACTONE) 25 MG tablet TAKE 1 TABLET BY MOUTH EVERY DAY 90 tablet 3 4 Active carvedilol (COREG) 25 MG tablet TAKE 1 TABLET BY MOUTH IN THE MORNING AND IN THE EVENING WITH MEALS 180 tablet 3 4 Active Active Problems Problem Noted Date Diagnosed Date Hypertension 04/28/2022 Stage 3a chronic kidney disease 04/28/2022 Asthma 08/06/2014 Obstructive sleep apnea syndrome 05/21/2009 Impaired fasting glycemia 04/19/2008 Encounters Date Type Department Care Team Description 09/18/2024 Refill [facility] [address] [place] [address] Johnson Sosa MD from Last 3 Months Family History Medical History Relation Comments Diabetes Father Heart disease Father Hypertension Father Diabetes Mother Heart disease Mother Hypertension Mother Relation Status Comments Brother pacemaker Father Maternal Grandmother throat canc er Mother Social History Tobacco Use Types Packs/Day Years Used Date Smoking Tobacco: Never Smokeless Tobacco: Never Alcohol Use Standard Drinks/Week Comments Not Currently 0 (1 standard drink = 0.6 oz pur e alcohol) Comments Unknown Sex and Gender Information Value Date Recorded Sex Assigned at Not on file Legal Sex Female 5:19 PM EST Gender Identity Not on file Sexual Orientation Not on file Last Filed Vital Signs Vital Sign Reading Time Taken Comments Blood Pressure 112/64 11/29/2022 9:03 AM EST Pulse 76 11/29/2022 9:03 AM EST Temperature - - Respiratory Rate - - Oxygen Saturation 99% 11/29/2022 9:03 AM EST Inhaled Oxygen Concentration - - Weight 102 kg (223 lb 12.8 oz) 11/29/2022 9:03 A M EST Height 157.5 cm (5' 2 ) 11/29/2022 9:03 AM EST Body Mass Index 40.93 11/29/2022 9:03 AM EST Plan of Treatment Health Maintenance Due Date Last Done Comments Breast Cancer Screening 1965 Pneumococcal Vaccine: Pediat rics (0 to 5 Years) and At-Risk Patients (6 to 64 Years) (1 of 2 - PCV) 1970 Colorectal Cancer Screening: Annual FOBT 2013 Colorectal Cancer Screening: Colonoscopy 2013 Colorectal Cancer Screening: Sigmoidoscopy 2013 Influenza Vaccine (#1) 2024 Hepatitis B Vaccine Aged Out No longe r eligible based on patient's age to complete this topic Insurance * Guarantor: Nydia Schuster Account Type Relation to Patient Date of Phone Billing Address Personal/Family Self [address] ([id number]) * Guarantor: Landen Nydia Account Type Relation to Patient Date of Phone Billing Address Personal/Family Self 1965 [id number] [facility] ([id number]) Care Teams Adjunct Trainer Relationship Specialty Start Date End Date Alfredo Massey NP [address] [place] [address] PCP - General Nurse Practitioner 03/03/22
--- OUTSIDE RECORDS SUMMARY | 2024-12-13 14:06 | XMS_ITS | Clinical Summary ---
Author Organization [facility] Address [address] [place] [address] Care Team Providers Care Template Maker Name Role Phone Unavailable Primary Care Provider Unavailabl e Source Comments PLEASE NOTE, if this patient is a minor, it may be UNLAWFUL to discuss sensitive information that is contained in these records (such as FAMILY PLANNING, MENTAL HEALTH or SUBSTANCE ABUSE) with the minor patient's parent or other person without the patient's specific authorization.[facility] Allergies Active Allergy Reactions Criticality Noted Date Comments Ibuprofen Rash 09/10/2022 Medications No known medications Active Problems Problem Noted Date Diagnosed Date High blood pressure 09/10/2022 Anxiety 09/10/2022 Depression 09/10/2022 Arthritis 09/10/2022 Social History Tobacco Use Types Packs/Day Years Used Date Smoking Tobacco: Never Smokeless Tobacco: Never Tobacco Cessation:Counseling Given: Not Answered Social Connections Answer Date Recorded Connectedness 0 08/03/2024 Financial Resource Strain Answer Date R ecorded Financial Resource Strain 0 2021 Stress Answer Date Recorded Stress 0 09/10/2022 Physical Activity Answer Date Recorded Physical Activity 0 09/10/2022 Food Insecurity Answer Date Recorded Food 0 08/16/2024 Transportation Needs Answer Date Record ed Transportation 0 09/10/2022 Housing Stability Answer Date Recorded Housing 0 09/10/2022 Safety and Environment Answer Date Cole rded Safety 0 09/10/2022 Utilities Answer Date Recorded Utilities 0 09/10/2022 Employment Answer Date Recorded Stress 0 08/03/2024 Comments Unknown Sex and Gender Information Value Date Recorded Sex Assigned at Not on file Legal Sex Female 10:26 AM PDT Gender Identity Not on file Sexual Orientation Not on file Last Filed Vital Signs Vital Sign Reading Time Taken Comments Blood Pressure 154/90 09/12/2023 1:05 PM EDT Pulse 81 09/12/2023 1:05 PM EDT Temperature - - Respiratory Rate - - Oxygen Saturation - - Inhaled Oxygen Concentration - - Weight - - Height - - Body Mass Index - - Plan of Treatment Health Maintenance Due Date Last Done Comments Depression Monitoring 1964 Diabetes Screening 1964 HPV Screening 1964 Hepatitis C Screening 1964 Lipid Screening 1964 Pap + HPV 1964 Tobacco Screening 1964 HIV Screening 1979 Medicare Annual Wellness Visit 1982 Imm-DTaP/Tdap/Td (1 - Tdap) 1983 Cervical Cancer Screening 1985 Pap Smear 1985 Breast Cancer Screening (Mammogram) 2004 CT Colonography 2009 Colonoscopy 2009 Colorectal Cancer Screening 2009 FIT/gFOBT 2009 Fecal DNA 2009 Flexible Sigmoidoscopy 2009 Imm-Zoster, Recombinant (1 o f 2) 2014 Dental BW 12/23/2023 12/21/2022, 09/10/2022 Dental Examination 12/23/2023 12/21/2022, 09/10/2022 Dental Perio Charting 12/23/2023 12/21/2022 Dental Prophy 12/23/2023 12/21/2022 [id number] ( season) 2024 Imm-Influenza (#1) 2024 Alcohol and Drug Screen 11/21/2024 Dental FMX/Pano 09/12/2027 09/10/2022 Cervical Ablation/Cold-Knife Conization Discontinued Cervical Cryotherapy Discontinued Colposcopy Discontinued Endometrial Biopsy Discontinued Excision/Leep Discontinued HPV Genotyping Discontinued Imm-Hepatitis B Aged Out No longer el igible based on patient's age to complete this topic Vaginal Pap Discontinued Vulvoscopy Discontinued Procedures Procedure Name Priority Date/Time Associated Diagnosis Comments COMP PERIODONTAL EVALUATION - NEW/EST PATIENT Routine 12/21/2022 3:00 PM EST Gingivitis, chronic, plaque induced BITEWINGS - FOUR RADIOGRAPHIC IMAGES Routine 12/21/2022 3:00 PM EST Gingivitis, chronic, plaque induced Full PROPHYLAXIS - ADULT Routine 023 3:00 PM EST Gingivitis, chronic, plaque induced PERIODIC ORAL EVALUATION ESTABLISHED PATIENT Routine 12/21/2022 3:00 PM EST Gingivitis, chronic, plaque induced Full INTRAORAL - COMP SERIES OF RADIOGRAPHIC IMAGES Routine 09/10/2022 9:00 AM EDT Encounter for dental examination from Last 3 Months or Most Recently Relevant to Health Maintenance Insurance [facility] - [facility]ENTAL
--- OUTSIDE RECORDS SUMMARY | 2024-12-13 14:06 | XMS_ITS | Patient Health Record ---
Author Organization [facility] Address [address] [place], [place] [id number] Care Team Providers Care Antique Furniture Repairer Name Role Phone No, PCP Primary Care Provider Elva Freeman Unavailable [phone] Allergies Allergen (clinical drug ingredient) Drug/Non Drug Allergy documented on EMR Reaction Allergy Type Onset Date Status Ibuprofen (uncoded) hives Allergy Active Reason For Referral No Information Medications Medication SIG (Take, Route, Frequency, Duration) Notes Start Date End Date Status spironolactone 25 mg 1 tab(s) orally 2 times a day Active lisinopril 40 mg 1 tab(s) orally once a day Active Xarelto Active Trazodone 50mg 150 mg 1 tab(s) orally on ce a day (at bedtime) Not-Taking amLODIPine 10 mg 1 tab(s) orally once a day Active sertraline 100 mg 1 tab(s) orally once a day Active Oxycodone/APAP 5/325mg one orally QID Active busPIRone 15 mg 1 tab(s) orally 2 times a day Active traMADol 50 mg 1 tab(s) orally ever y 4 hours Not-Taking Abilify 5 mg 1 tab(s) orally once a day Active zolpidem 5 mg 1 tab(s) orally once a day (at bedtime) Active Combipatch 0.05 mg-0.25 mg/24 hours 1 PATCH applied topically 2 times a week Not-Taking albuterol 90 mcg/inh 2 puff(s) inhaled 4 times a day Active Flovent HFA CFC free 110 mcg/inh 2 puff(s) inhaled 2 times a day Active carvedilol 12.5 mg 1 tab(s) orally 2 times a day Active omeprazole 20 mg 1 cap(s) orally once a day Active Plan Of Treatment No Information Insurance Providers Payer Name Payer Address Payer Phone Subscriber Number Group Number Insured Name Patient Relationship to Insured Coverage Start Date Coverage End Date [employer] [address] [place] [address] [id number] Nydia Schuster Self - patient is the insured Medical (General) History Medical History History ICD Code HTN Depression Asthma Astma exacerbation Lumbar back pain Xanthelasma Hot flashes due to menopause Carpal tunnel syndrome on both sides Other chronic pain anxiety
[2024-12-17 15:04] LABS: Mitochondrial Antibodies NEGATIVE (NEGATIVE)
== END 2024-12-13 10:33 | disposition home or self-care (01) ==
LOC: HO.LAB 10:32
PROVIDERS: PCP Nurse Practitioner Family; Visit Provider Internal Medicine Gastroenterology
DX: K21.9 Gastro-esophageal reflux disease without esophagitis (principal); K22.70 Barrett's esophagus without dysplasia; R68.81 Early satiety; D12.6 Benign neoplasm of colon, unspecified; K59.09 Other constipation; K64.8 Other hemorrhoids; R74.8 Abnormal levels of other serum enzymes; Z98.890 Other specified postprocedural states
CPT/HCPCS: 36415; 82728; 83540; 86381; 86704; 86706; 86708; 86803; 87340; 99212

== ENCOUNTER → 2024-12-14 09:49 | Outpatient (BNVA) | payer OTHER, SELFPAY | PROVIDERS: PCP Nurse Practitioner Family ==

== ENCOUNTER 2024-12-26 11:21 | Outpatient (REF) | payer OTHER, SELFPAY ==
[2024-12-26 18:58] LABS: Creatinine Urine 122.94 mg/dL; Protein/Creatinine Ratio, Ur 0.12 (<0.2); Total Protein Urine Random 15 mg/dL (<12)
[2024-12-26 18:59] LABS: Anion Gap 12 (12-20); Blood Urea Nitrogen 25 mg/dL (9-16); Calcium 9.4 mg/dL (8.4-10.2); Carbon Dioxide 21 mmol/L (22-29); Chloride 108 mmol/L (96-108); Estimated Glomerular Filt Rate 46; Potassium 3.9 mmol/L (3.3-5.1); Sodium 137 mmol/L (135-145)
[2024-12-26 19:05] LABS: TSH reflex Free T4 0.74 uIU/mL (0.32-4.0)
[2024-12-28 19:02] LABS: IgA 377 mg/dL (47-310); IgG 909 mg/dL (600-1640); IgM 121 mg/dL (50-300)
== END 2024-12-26 11:22 | disposition home or self-care (01) ==
LOC: HO.HKASLDS 11:21
PROVIDERS: Visit Provider Internal Medicine Nephrology
DX: I10 Essential (primary) hypertension (principal); N17.9 Acute kidney failure, unspecified
CPT/HCPCS: 36415; 80051; 82310; 82565; 82570; 82784; 84156; 84443; 84520; 86334

== ENCOUNTER 2024-12-27 12:17 | Outpatient (AMB) | payer OTHER, SELFPAY ==
--- NOTE | 2024-12-27 12:12 | HO.NEPHOV ---
Vital Signs 12/27/24 12:13 Height 5 ft 2 in Intake Visit Reasons: FU Disorder of kidney and ureter/Conf Solar Designer Required: No Accompanied by: Self / Same As Patient Allergies ibuprofen [IBUPROFEN] Allergy (Mild, Verified 12/27/24 12:13) RASH, hives HPI Comments Details: Nydia was seen today in F/U by [facility]. She has multiple other medical issues including diabetes mellitus and hypertension. She had been on Jardiance, JELANI inhibitor and diuretics and she was taking nonsteroidal anti-inflammatories for the pain along with the above-mentioned medications. Her serum creatinine was found to be 1.6. She has history of nephrolithiasis in the past. She underwent a renal ultrasound which did not show any hydronephrosis. She does not have any nausea, vomiting, diarrhea, hematuria, dizziness, chest pain, shortness of breath, proximal nocturnal dyspnea, orthopnea but has been having pedal edema. Her lood pressure has been fluctuant and needed quite a number medications to keep it close to goal. Her blood sugar control is fair. She claims to be hydrating adequately. She does not have any epistaxis, photosensitivity, new skin rashes or joint swellings. Nephrology is being consulted to assist in her continued clinical care. [facility], [facility] Medical History (Updated 12/05/24 @ 17:09 by Alfredo Massey, [facility]) PAF (paroxysmal atrial fibrillation) Barretts esophagus Hx of flexible sigmoidoscopy Osteoarthritis of left hip Spondylosis without myelopathy or radiculopathy, 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 Sacroiliitis Asthma WENDY (obstructive sleep apnea) Morbid obesity Swelling of both lower extremities Afib Disc degeneration, lumbar Cervical pain (neck) Calcaneal spur Benign neoplasm breast skin Bursitis, shoulder Xanthelasma Auditory hallucinations Impaired glucose tolerance Hyperlipidemia Anxiety Depression Adenomatous polyp of colon Esophagitis Hypertensive urgency Palpitations HTN (hypertension) Dyspepsia GERD (gastroesophageal reflux disease) Surgical History Hx of colonoscopy H/O esophagogastroduodenoscopy (09/01/15) Status post Margarita fundoplication (10/27/12) History of removal of cyst Hx of cholecystectomy History of hysterectomy Family History Father CVD (cardiovascular disease) HTN (hypertension) Diabetes Mother HTN (hypertension) Diabetes CVD (cardiovascular disease) Brother Pacemaker Maternal Grandmother Throat cancer Brother No problems noted. Daughter Hx LEEP (loop electrosurgical excision procedure), cervix, Other Mental health disorder Substance use disorder Social History Household Members: None Housing: House Are you a primary child care lead teacher to a significant other at home: No Do you presently have visiting nurse or other home services: No Alcohol intake: never Patient Tobacco Use Status: Never used Tobacco e-Cigarette/Vaping Use: Never Used Second Hand Smoke Exposure: No Advance Directives Date on File: 03/16/21 service: No Current occupational status: disabled Sexual orientation: Straight/Heterosexual Gender identity: Female Cognitive needs: No Hearing needs: No Vision needs: No Telehealth Telehealth Telehealth Platform: Telephone Location of provider rendering services: practice address Location of patient: address on file Patient Identification confirmed using: Name, : Yes Telehealth method: voice only Patient verbally consented to treatment: Yes Patient verbally consented to billing insurance company: Yes Patient informed of any privacy concerns related to visit: No Minutes spent on Phone/Video with Pt.: 10 Results Reviewed Nephrology Results: Hgb 13.1 g/dl (12.0-16.0) 12/05/24 WBC 7.2 X10*3/uL (4.8-10.8) 12/05/24 Plt Count 277 X10*3/uL (160-400) 12/05/24 Sodium 137 mmol/L (135-145) 12/26/24 Potassium 3.9 mmol/L (3.3-5.1) 12/26/24 Chloride 108 mmol/L (96-108) 12/26/24 Carbon Dioxide 21 mmol/L (22-29) L 12/26/24 BUN 25 mg/dL (9-16) H 12/26/24 Creatinine 1.19 mg/dL (0.5-1.4) 12/26/24 Calcium 9.4 mg/dL (8.4-10.2) 12/26/24 Urine Protein Trace mg/dL (Neg-Trace) 12/05/24 Urine Creatinine 122.94 mg/dL 12/26/24 Protein/Creatinin Ratio 0.12 (<0.2) 12/26/24 Assessment & Plan Assessment & Plan (1) Edema: Code(s): R60.9 - Edema, unspecified Category: Medical Qualifiers: Edema type: localized Qualified Code(s): R60.0 - Localized edema Plan Nydia has had RUTH due to compromise in renal perfusion with resultant tubular injury. She has been taking JELANI inhibitor, Jardiance, hydrochlorothiazide and nonsteroidals the same time. She likely had altered autoregulation the kidney. Her urine output is good. Her renal ultrasound did not show any obstructive uropathy. There is no reason to suspect any GN or AIN. Her renal functions are steadily improving with supportive care. She is on multiple antihypertensive medications to keep her blood pressure at goal. She has significant by pedal edema most likely due to amlodipine. She is not known to have any significant proteinuria. She clearly needs to lose significant weight. She was encouraged to avoid nonsteroidal anti-inflammatories. She needs to cut back sodium in the diet especially given history of renal calculus and hypertension. She also follows up with cardiology. Further management is pending evolving data Orders: Orders Protein Creatinine Ratio, Ur 3 Months R60.0 - Localized edema Creatinine 3 Months R60.0 - Localized edema Blood Urea Nitrogen 3 Months R60.0 - Localized edema Electrolytes 3 Months R60.0 - Localized edema Coding Level of Care Code Tele Est Pt Level 4 (21093) Diagnoses Localized edema R60.0 Edema type: localized
--- OUTSIDE RECORDS SUMMARY | 2024-12-27 12:18 | XMS_ITS | Clinical Summary ---
Author Organization [facility] Address [address] [place] [address] Care Team Providers Care Ore Mixer Name Role Phone Unavailable Primary Care Provider [...] Charting 12/23/2023 12/21/2022 Dental Prophy 12/23/2023 12/21/2022 [id number] ( season) 2024 Imm-Influenza (#1) 2024 Alcohol [...] Most Recently Relevant to Health Maintenance Insurance [facility] - [facility]ENT[facility]
--- OUTSIDE RECORDS SUMMARY | 2024-12-27 12:19 | XMS_ITS | Clinical Summary ---
Author Organization [facility] Address [address] [place] [id number] Care Team Providers Care Hull And Deck Remover Name Role Phone Alfredo Massey NP Primary Care Provider [phone] Allergies Active Allergy Reactions Criticality Noted Date [...] apnea syndrome 05/21/2009 Impaired fasting glycemia 04/19/2008 Family History Medical History Relation Comments Diabetes [...] patient's age to complete this topic [place] [address] [place] [address] ([id number]) [facility] ([id number]) Care Teams Hull And Deck Remover Relationship Specialty Start Date End Date Alfredo Massey [place] [address] PCP - General Nurse Practitioner 03/03/22
== END 2024-12-27 15:58 | disposition home or self-care (01) ==
LOC: HO.HKAS 12:17
PROVIDERS: PCP Nurse Practitioner Family; Visit Provider Internal Medicine Nephrology
DX: R60.0 Localized edema (principal)
CPT/HCPCS: 99214

== ENCOUNTER → 2024-12-28 07:51 | Outpatient (BNVA) | payer OTHER, SELFPAY | PROVIDERS: PCP Nurse Practitioner Family; Visit Provider Obstetrics & Gynecology | DX: R10.2 Pelvic and perineal pain (principal) | CPT/HCPCS: 99212 ==

== ENCOUNTER → 2024-12-28 07:51 | Outpatient (AMB) | payer OTHER, SELFPAY ==
--- OUTSIDE RECORDS SUMMARY | 2024-12-28 07:53 | XMS_ITS | Clinical Summary ---
Author Organization [facility] Address [address] [place] [address] Care Team Providers Care Commercial Photographer Name Role Phone Unavailable Primary Care Provider [...] Charting 12/23/2023 12/21/2022 Dental Prophy 12/23/2023 12/21/2022 [id number] ( season) 2024 Imm-Influenza (#1) 2024 Alcohol [...] Most Recently Relevant to Health Maintenance Insurance [facility] - DENTAL
--- OUTSIDE RECORDS SUMMARY | 2024-12-28 07:53 | XMS_ITS | Patient Health Record ---
Author Organization [facility] Address [address] [place], [place] [id number] Care Team Providers Care District Supervisor Name Role Phone No, PCP Primary Care Provider Elva Freeman Unavailable [phone] Allergies Allergen (clinical drug ingredient) Drug/Non Drug [...] [facility] [address] [place] [id number] Nydia Schuster Self - patient is the insured Medical (General) History Medical History History ICD Code HTN Depression Asthma Astma exacerbation Lumbar back pain Xanthelasma Hot flashes due to menopause Carpal tunnel syndrome on both sides Other chronic pain anxiety
--- OUTSIDE RECORDS SUMMARY | 2024-12-28 07:53 | XMS_ITS | Clinical Summary ---
Author Organization [facility] Address [address] [place] [address] Care Team Providers Care Vegetable Sorter Name Role Phone Alfredo Massey NP Primary Care Provider [phone] Allergies Active Allergy Reactions Criticality Noted Date [...] patient's age to complete this topic [place] [address] [place] [address] ([id number]) [facility] ([id number]) Care Teams Vegetable Sorter Relationship Specialty Start Date End Date Alfredo Massey NP [facility] [place] [address] PCP - General Nurse Practitioner 03/03/22
--- NOTE | 2024-12-28 07:56 | A.OFFVIS_ITS ---
Vital Signs 12/28/24 07:58 Height 5 ft 2 in Weight 208 lb BMI 38.0 BP 106/64 Intake Visit Reasons: CT Results Chief Technical Officer Required: Yes Chief Technical Officer Language: Family And Divorce Legal Assistant Services: Chief Technical Officer Present (in person) Chief Technical Officer Name: Lien NELSON Information Interpreted: non-clinical & clinical Accompanied by: Self / Same As Patient Allergies ibuprofen [IBUPROFEN] Allergy (Mild, Verified 12/28/24 08:00) RASH, hives Post menopausal: Yes HPI Comments Details: Presenting for follow-up regarding CT scan for pelvic pain. CT scan of abdomen and pelvis done on 10/17/24 with the following: IMPRESSION: 1. No acute findings in the abdomen or pelvis. 2. No findings to to explain pelvic or perineal pain. 3. Cholecystectomy. 4. Hysterectomy. [facility] Medical History PAF (paroxysmal atrial fibrillation) Barretts esophagus Hx of flexible sigmoidoscopy Osteoarthritis of left hip Spondylosis without myelopathy or radiculopathy, 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 Sacroiliitis Asthma WENDY (obstructive sleep apnea) Morbid obesity Swelling of both lower extremities Afib Disc degeneration, lumbar Cervical pain (neck) Calcaneal spur Benign neoplasm breast skin Bursitis, shoulder Xanthelasma Auditory hallucinations Impaired glucose tolerance Hyperlipidemia Anxiety Depression Adenomatous polyp of colon Esophagitis Hypertensive urgency Palpitations HTN (hypertension) Dyspepsia GERD (gastroesophageal reflux disease) Surgical History Hx of colonoscopy H/O esophagogastroduodenoscopy (09/01/15) Status post Margarita fundoplication (10/27/12) History of removal of cyst Hx of cholecystectomy History of hysterectomy Family History Father CVD (cardiovascular disease) HTN (hypertension) Diabetes Mother HTN (hypertension) Diabetes CVD (cardiovascular disease) Brother Pacemaker Maternal Grandmother Throat cancer Brother No problems noted. Daughter Hx LEEP (loop electrosurgical excision procedure), cervix, Other Mental health disorder Substance use disorder Social History Household Members: None Housing: House Are you a primary childcare aide to a significant other at home: No Do you presently have visiting nurse or other home services: No Alcohol intake: never Patient Tobacco Use Status: Never used Tobacco e-Cigarette/Vaping Use: Never Used Second Hand Smoke Exposure: No Advance Directives Date on File: 03/16/21 service: No Current occupational status: disabled Sexual orientation: Straight/Heterosexual Gender identity: Female Cognitive needs: No Hearing needs: No Vision needs: No Review of Systems Const All systems reviewed & are unremarkable except as noted in HPI and below Reports as per HPI and Reports no additional complaints GI Reports no additional complaints Reports no additional complaints Assessment & Plan Assessment & Plan (1) Pelvic pain: Code(s): R10.2 - Pelvic and perineal pain Category: Medical Plan: Discussed with the patient the results of the CT scan and pelvic ultrasound. Differential diagnosis of township clerk causes that have not be ruled out yet include but not limited to pelvic adhesions , or other. Recommended for the patient to see her PCP for further workup for non township clerk causes; if the all the results are negative and the patient's pelvic pain is persistent, instructions given to patient to call back for further testing. Meanwhile, instructions were given the patient to go to emergency room or call in case of fever above 100.4, heavy vaginal bleeding, persistence or worsening of her pelvic pain. All questions answered, the patient verbalized understanding. Coding Level of Care Code Est Pt Level 3 (98644) Diagnoses Pelvic pain R10.2
== END | disposition home or self-care (01) ==
PROVIDERS: PCP Nurse Practitioner Family; Visit Provider Obstetrics & Gynecology
CPT/HCPCS: 99213

== ENCOUNTER 2025-01-08 11:58 | Outpatient (REF) | payer OTHER, SELFPAY ==
--- NOTE | ~2025-01-08 | XR_ITS ---
EXAMINATION: XR KNEE, LEFT CLINICAL INFORMATION: M25.562 - Pain in left knee COMPARISON: 03/07/2023. TECHNIQUE: Four views of the left knee. FINDINGS: No fracture, dislocation, or suspicious bone lesion. Normal bone mineralization. Normal alignment. Minimal medial compartment and mild patellofemoral compartment joint space narrowing. Mild spurring of the tibial spines. No significant joint effusion. Soft tissues appear normal. XR/XR knee LT 4V IMPRESSION: 1. No acute findings of the left knee. 2. Minimal medial compartment narrowing, and mild patellofemoral compartment narrowing. 3. No joint effusion. Electronically signed by: Isai Sanchez MD 01/09/2025 10:00 AM [facility]
--- OUTSIDE RECORDS SUMMARY | 2025-01-08 13:56 | XMS_ITS | Clinical Summary ---
Author Organization [facility] Facility Address [address] [place] [address] Care Team Providers Care Orthotist Or Prosthetist Name Role Phone Alfredo Massey NP Primary Care Provider [phone] Allergies Active Allergy Reactions Criticality Noted Date [...] patient's age to complete this topic [place] [address] [place] [address] ([id number]) [facility] ([id number]) Care Teams Orthotist Or Prosthetist Relationship Specialty Start Date End Date Alfredo Massey [place] [address] PCP - General Nurse Practitioner 03/03/22
== END 2025-01-08 11:59 | disposition home or self-care (01) ==
LOC: HO.HMGCX 11:58
PROVIDERS: PCP Nurse Practitioner Family; Visit Provider Internal Medicine
DX: M25.562 Pain in left knee (principal)
CPT/HCPCS: 73564; 99212

== ENCOUNTER 2025-01-08 11:58 | Outpatient (AMB) | payer OTHER, SELFPAY ==
[2025-01-08 12:22] VITALS: BP 130/72; PULSE 76; TEMP 36.5; O2SAT 97; BMI 38.0
--- NOTE | 2025-01-08 12:22 | MHC.OFFWIV ---
Intake Vital Signs 01/08/25 12:22 Height 5 ft 2 in Weight 208 lb BMI 38.0 BP 130/72 Blood Pressure Location Lt brachial Position Sitting Pulse 76 Pulse Source Pulse Oximeter Temp 97.7 F Temp Source Oral Pulse Oximetry (%) 97 Oxygen Delivery Method Room Air Intake Visit Reasons: EP-lt knee pain Intake Note: pt is here for left knee pain, denies injury ongoing pain for one week Patient Tobacco Use Status: Never used Tobacco Allergies ibuprofen [IBUPROFEN] Allergy (Mild, Verified 01/08/25 12:22) RASH, hives Medication List - Last Reconciled 01/08/25 by Marlin Jewell MD acetaminophen ER (Tylenol 8 Hour) 650 mg PO Q12H PRN albuterol sulfate 5 mg inhalation Q4H PRN albuterol sulfate 90 mcg/actuation 2 puffs inhalation Q20M PRN amlodipine 10 mg PO DAILY 90 days aripiprazole 5 mg PO DAILY atorvastatin 20 mg PO DAILY blood pressure kit-extra large As directed blood sugar diagnostic (Ohm Universeuch Ultra Test strips) Use to check blood sugar twice daily: fasting blood sugar and a random blood sugar blood-glucose meter (Ohm Universeuch Ultra2 Meter) Use to check blood sugar twice daily: fasting blood sugar and a random blood sugar buspirone 15 mg PO BID carvedilol 25 mg PO BID cholecalciferol (vitamin D3) 50 mcg PO DAILY clonidine HCl 0.1 mg PO BID 30 days diclofenac sodium 1% (Arthritis Pain (diclofenac)) 4 grams topical QID 30 days dicyclomine 20 mg PO BID PRN 90 days docusate sodium 100 mg PO BEDTIME empagliflozin 25 mg PO DAILY 90 days flash glucose scanning reader (Polymer VisionStyle Susu 2 [place]) As directed flash glucose sensor (FreeStyle Susu 2 Sensor kit) test blood sugar 4 times per day fluticasone propionate 110 mcg/actuation 1 puff inhalation BID 30 days gabapentin 100 mg PO BEDTIME 30 days humidifiers As directed hydrochlorothiazide 25 mg PO DAILY 30 days hydroxyzine HCl 10 mg PO TID PRN incontinence pad, liner, disp use daily for incont ketoconazole 2% 1 appl topical DAILY lancets Use to check blood sugar twice daily: fasting blood sugar and a random blood sugar magnesium oxide 400 mg PO BEDTIME 30 days melatonin 3 mg PO QPM naloxone 4 mg/actuation (Narcan) 4 mg intranasal Q2M PRN omeprazole 20 mg PO BID 90 days rivaroxaban (Xarelto) 20 mg PO DAILY sennosides-docusate sodium 8.6-50 mg (Senna Plus) 2 tab-caps (2 x 8.6-50 mg) PO BEDTIME 60 days sertraline 100 mg PO DAILY spironolactone 25 mg PO BID tizanidine 4 mg PO TID PRN zolpidem 5 mg PO BEDTIME PRN Do you need a note to return to daycare/school/sports/work: No HPI EP-lt knee pain HPI Details Patient is 59-year-old female came in today to be evaluated for left knee pain which has been happening for the past 1 week Patient has a history of osteoarthritis She has seen orthopedic for her right knee in the past She has been taking Tylenol which helps somewhat I have ordered x-ray of her knee Patient is to take naproxen 500 b.i.d. with food Prednisone for 5 days 10 mg once a day sent as well Follow with primary care [facility] Medical History PAF (paroxysmal atrial fibrillation) Barretts esophagus Hx of flexible sigmoidoscopy Osteoarthritis of left hip Spondylosis without myelopathy or radiculopathy, 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 Sacroiliitis Asthma WENDY (obstructive sleep apnea) Morbid obesity Swelling of both lower extremities Afib Disc degeneration, lumbar Cervical pain (neck) Calcaneal spur Benign neoplasm breast skin Bursitis, shoulder Xanthelasma Auditory hallucinations Impaired glucose tolerance Hyperlipidemia Anxiety Depression Adenomatous polyp of colon Esophagitis Hypertensive urgency Palpitations HTN (hypertension) Dyspepsia GERD (gastroesophageal reflux disease) Surgical History Hx of colonoscopy H/O esophagogastroduodenoscopy (09/01/15) Status post Margarita fundoplication (10/27/12) History of removal of cyst Hx of cholecystectomy History of hysterectomy Family History Father CVD (cardiovascular disease) HTN (hypertension) Diabetes Mother HTN (hypertension) Diabetes CVD (cardiovascular disease) Brother Pacemaker Maternal Grandmother Throat cancer Brother No problems noted. Daughter Hx LEEP (loop electrosurgical excision procedure), cervix, Other Mental health disorder Substance use disorder Social History Household Members: None Housing: House Are you a primary customer care specialist to a significant other at home: No Do you presently have visiting nurse or other home services: No Alcohol intake: never Patient Tobacco Use Status: Never used Tobacco e-Cigarette/Vaping Use: Never Used Second Hand Smoke Exposure: No Advance Directives Date on File: 03/16/21 service: No Current occupational status: disabled Sexual orientation: Straight/Heterosexual Gender identity: Female Cognitive needs: No Hearing needs: No Vision needs: No Review of Systems Const All systems reviewed & are unremarkable except as noted in HPI and below Physical Exam Vital Signs: Last Vital Signs Temp 97.7 F 01/08/25 12:22 Pulse 76 01/08/25 12:22 BP 130/72 01/08/25 12:22 Pulse Ox 97 01/08/25 12:22 Oxygen Delivery Method Room Air 01/08/25 12:22 BMI result Body Mass Index 38.0 Const General: no acute distress Orientation/consciousness: patient oriented x3 Eyes General: appearance normal, both eyes and all related structures Resp Effort & Inspection: normal respiratory effort and able to speak in complete sentences Neuro General: patient oriented x3 Extrem Elbow/forearm/wrist images: 1. Tender all over without swelling, range of motion limited secondary to pain no calf tenderness Psych Mental Status: mental status grossly normal Assessment & Plan Assessment & Plan (1) Knee pain, left: Code(s): M25.562 - Pain in left knee Qualifiers: Chronicity: acute Qualified Code(s): M25.562 - Pain in left knee Plan Patient is 59-year-old female came in today to be evaluated for left knee pain which has been happening for the past 1 week Patient has a history of osteoarthritis She has seen orthopedic for her right knee in the past She has been taking Tylenol which helps somewhat I have ordered x-ray of her knee Patient is to take naproxen 500 b.i.d. with food Prednisone for 5 days 10 mg once a day sent as well Follow with primary care Medications: New prednisone 20 mg PO DAILY 5 days 5 tabs 0RF tramadol 50 mg PO BEDTIME 10 days PRN 10 tabs 0RF pain Coding Level of Care Code Est Pt Level 3 (03367) Diagnoses Acute pain of left knee M25.562 Chronicity: acute
--- OUTSIDE RECORDS SUMMARY | 2025-01-08 13:06 | XMS_ITS | Patient Health Record ---
Author Organization [facility] Address [address], [place] [id number] Care Team Providers Care Rn Radiation Oncology Name Role Phone No, PCP Primary Care Provider Elva Freeman Unavailable [phone] Allergies Allergen (clinical drug ingredient) Drug/Non Drug [...] [facility] [address] [place] [address] [id number] Nydia Schuster Self - patient is the insured Medical (General) History Medical History History ICD Code HTN Depression Asthma Astma exacerbation Lumbar back pain Xanthelasma Hot flashes due to menopause Carpal tunnel syndrome on both sides Other chronic pain anxiety
--- OUTSIDE RECORDS SUMMARY | 2025-01-08 13:06 | XMS_ITS | Clinical Summary ---
Author Organization [facility] Address [address] [place] [address] Care Team Providers Care Bone Cooking Operator Name Role Phone Unavailable Primary Care Provider [...] Charting 12/23/2023 12/21/2022 Dental Prophy 12/23/2023 12/21/2022 [id number] ( season) 2024 Imm-Influenza (#1) 2024 Alcohol [...] Most Recently Relevant to Health Maintenance Insurance [facility]
--- OUTSIDE RECORDS SUMMARY | 2025-01-08 13:06 | XMS_ITS | Clinical Summary ---
Author Organization [facility] Facility Address [address] [place] [address] Care Team Providers Care Diabetes Trainer Name Role Phone Alfredo Massey NP Primary Care Provider [phone] Allergies Active Allergy Reactions Criticality Noted Date [...] patient's age to complete this topic [place] [place] [address] ([id number]) [facility] ([id number][facility] Care Teams Diabetes Trainer Relationship Specialty Start Date End Date Alfredo Massey NP [facility] [place] [address] PCP - General Nurse Practitioner 03/03/22
== END 2025-01-08 12:42 | disposition home or self-care (01) ==
PROVIDERS: PCP Nurse Practitioner Family; Visit Provider Internal Medicine
DX: M25.562 Pain in left knee (principal)

== ENCOUNTER → 2025-01-08 13:15 | Outpatient (BNV) | payer OTHER, SELFPAY | PROVIDERS: PCP Nurse Practitioner Family; Visit Provider Radiology Diagnostic Radiology | DX: M25.562 Pain in left knee (principal) | CPT/HCPCS: 73564 ==

== ENCOUNTER 2025-02-21 10:36 | Outpatient (REF) | payer OTHER, SELFPAY ==
--- NOTE | ~2025-02-21 | US_ITS ---
EXAMINATION: US ABDOMEN LIMITED WITH LIVER ELASTOGRAPHY HISTORY: R74.8 - Abnormal levels of other serum enzymes TECHNIQUE: Real-time grayscale ultrasound imaging of the right upper quadrant was performed and images were reviewed. COMPARISON: Correlation is made with a CT of the abdomen with contrast dated 10/17/2024. FINDINGS: Liver: The right lobe of the liver measures 14.3 cm in size. The left lobe of the liver measures 10.5 cm in size. The liver demonstrates mildly increased echotexture, consistent with steatosis. No focal mass or intrahepatic biliary ductal dilatation is identified. There is normal hepatopedal flow in the portal vein. Ultrasound elastography of the liver was performed with 10 separate measurements of the liver parenchyma with the patient in the supine position. Measurements were obtained approximately 2 cm below Phillip's capsule and perpendicular to the capsule. The median shear wave velocity is 0.87 m/s. The interquartile range/median (IQR/median) is 0.24. Gallbladder and biliary tree: The gallbladder is surgically absent. The common bile duct is normal in caliber measuring 2 mm. Right Kidney: The right kidney measures 10.6 cm in length. The right kidney is unremarkable, without evidence of masses, hydronephrosis, or calculi. Pancreas: The pancreatic head, neck, and body are unremarkable. The pancreatic tail is obscured by bowel gas. Abdominal aorta and inferior vena cava: The visualized portions of the abdominal aorta and inferior vena cava are normal in caliber. There is no free fluid in the right upper quadrant. US/US abdomen howe w elastography IMPRESSION: Mild hepatic steatosis. The median shear wave velocity in the liver is 0.87 m/s, corresponding to a median liver stiffness of 2.3 kPa. The IQR/median value is 0.24. This is indicative of a poor quality data set, and the estimated liver stiffness may be unreliable. Findings are indicative of a normal elastography value with a low likelihood of severe fibrosis or cirrhosis. REFERENCE: Society of Radiologists in Ultrasound Liver Stiffness Thresholds (2020): LIVER STIFFNESS THRESHOLDS: *Shear wave velocity less than 1.3 m/s (Liver Stiffness equal or less than 5 kPa): High probability of being normal. *Shear wave velocity less than 1.7 m/s (Liver Stiffness less than 9 kPa): In the absence of other known clinical signs, rules out compensated advanced chronic liver disease. *Shear wave velocity between 1.7-2.1 m/s (Liver Stiffness 9-13 kPa): Suggestive of compensated advanced chronic liver disease but need further test for confirmation. *Shear wave velocity between 2.1-2.4 m/s (Liver Stiffness 13-17 kPa): Rules in compensated advanced chronic liver disease. *Shear wave velocity greater than 2.4 m/s (Liver Stiffness over 17 kPa): Suggestive of clinically significant portal hypertension. QUALITY OF DATA SET: *IQR/Median value equal or less than 0.15 implies a quality data set. *IQR/Median value over 0.15 implies a poor quality data set. SIGNIFICANT CHANGE FROM PRIOR EXAM: Significant change if liver stiffness measurement is 10% or greater from prior exam. OTHER CONSIDERATIONS: The stage of liver fibrosis may be overestimated in the setting of acute hepatitis, liver inflammation, elevated liver function tests, hepatic vascular congestion, obstructive cholestasis, non-fasting state, and infiltrative diseases such as amyloidosis and lymphoma. In some patients with NAFLD, the liver stiffness thresholds for compensated advanced chronic liver disease may be lower. In causes other than viral hepatitis and NAFLD, liver stiffness thresholds are not well established. Electronically signed by: Leonardo Hernandez MD 02/21/2025 01:30 PM EDT
--- OUTSIDE RECORDS SUMMARY | 2025-02-21 11:46 | XMS_ITS | Clinical Summary ---
Author Organization [facility] Address [address] [place] [address] Care Team Providers Care Upholsterer Outside Name Role Phone Unavailable Primary Care Provider [...] Charting 12/23/2023 12/21/2022 Dental Prophy 12/23/2023 12/21/2022 [id number] ( season) 2024 Imm-Influenza (#1) 2024 Alcohol [...] Maintenance Insurance [facility]
--- OUTSIDE RECORDS SUMMARY | 2025-02-21 11:46 | XMS_ITS | Clinical Summary ---
Author Organization [facility] Facility Address [address] [place] [address] Care Team Providers Care Instructor Creeler Name Role Phone Alfredo Massey NP Primary Care Provider [phone] Allergies Active Allergy Reactions Criticality Noted Date [...] patient's age to complete this topic Insurance [place] [address] ([id number]) [facility] ([id number]) Care Teams Instructor Creeler Relationship Specialty Start Date End Date Alfredo Massey [place] [address] PCP - General Nurse Practitioner 03/03/22
--- OUTSIDE RECORDS SUMMARY | 2025-02-21 11:47 | XMS_ITS | Patient Health Record ---
Author Organization [facility] Address [address], [place] [id number] Care Team Providers Care Drum Reel Cutter Name Role Phone No, PCP Primary Care Provider Unavailabl e Allergies Allergen (clinical drug ingredient) Drug/Non Drug [...] [facility] [address] [place] [address] [phone] [id number] Nydia Schuster Self - patient is the insured Medical (General) History Medical History History ICD Code HTN Depression Asthma Astma exacerbation Lumbar back pain Xanthelasma Hot flashes due to menopause Carpal tunnel syndrome on both sides Other chronic pain anxiety
== END 2025-02-21 10:37 | disposition home or self-care (01) ==
LOC: HO.US 10:36
PROVIDERS: PCP Nurse Practitioner Family; Visit Provider Internal Medicine Gastroenterology
DX: R74.8 Abnormal levels of other serum enzymes (principal)
CPT/HCPCS: 76705; 76981

== ENCOUNTER → 2025-02-21 10:39 | Outpatient (BNV) | payer OTHER, SELFPAY | PROVIDERS: PCP Nurse Practitioner Family; Visit Provider Radiology Diagnostic Radiology | DX: K76.0 Fatty (change of) liver, not elsewhere classified (principal) | CPT/HCPCS: 76705; 76981 ==

== ENCOUNTER 2025-04-02 10:21 | Outpatient (REF) | payer OTHER, SELFPAY ==
--- OUTSIDE RECORDS SUMMARY | 2025-04-02 11:27 | XMS_ITS | Clinical Summary ---
Author Organization [facility] Facility Address [address] [place] [address] Care Team Providers Care Outside Production Inspector Name Role Phone Alfredo Massey NP Primary Care Provider [phone] Allergies Active Allergy Reactions Criticality Noted Date [...] Comments Breast Cancer Screening 1965 Pneumococcal Vaccine: 50+ Ye ars (1 of 2 - PCV) 1983 Colorectal Cancer Screening: Annual FOBT 2013 Colorectal Cancer Screening: Colonoscopy 2013 Colorectal Cancer Screening: Sigmoidoscopy 2013 Influenza Vaccine (Season Ended) 2025 Hepatitis B Vaccine Aged Out No longe r eligible based on patient's age to complete this topic Insurance [facility] ([id number]) [facility] ([id number]) Care Teams Outside Production Inspector Relationship Specialty Start Date End Date Alfredo Massey NP [address] [place] [address] PCP - General Nurse Practitioner 03/03/22
--- OUTSIDE RECORDS SUMMARY | 2025-04-02 11:27 | XMS_ITS | Clinical Summary ---
Author Organization [facility] Address [address] [place] [address] Care Team Providers Care Branding Specialist Name Role Phone Unavailable Primary Care Provider [...] Health Maintenance Due Date Last Done Comments Anxiety Screening 1965 Depression Monitoring 1965 HPV Screening 1965 Hepatitis C Screening [...] Charting 12/23/2023 12/21/2022 Dental Prophy 12/23/2023 12/21/2022 [id number] ( season) 2024 Imm-Influenza (#1) 2024 Alcohol and Drug Screen 11/21/2024 Diabetes Screening 11/25/2025 11/25/2022 Dental FMX/Pano 09/12/2027 09/10/2022 Cervical Ablation/Cold-Knife Conization [...] Most Recently Relevant to Health Maintenance Insurance [facility] - DENTAL
--- OUTSIDE RECORDS SUMMARY | 2025-04-02 11:28 | XMS_ITS | Patient Health Record ---
Author Organization [facility] Address [address], [place] [id number] Care Team Providers Care Cellulose Insulation Helper Name Role Phone No, PCP Primary Care [...] [facility] [address] [place] [address] [phone] [id number] Nydia Schuster Self - patient is the insured Medical (General) History Medical History History ICD Code HTN Depression Asthma Astma exacerbation Lumbar back pain Xanthelasma Hot flashes due to menopause Carpal tunnel syndrome on both sides Other chronic pain anxiety
[2025-04-02 18:31] LABS: Anion Gap 20 (12-20); Blood Urea Nitrogen 24 mg/dL (9-16); Carbon Dioxide 19 mmol/L (22-29); Chloride 110 mmol/L (96-108); Estimated Glomerular Filt Rate 45; Potassium 4.2 mmol/L (3.3-5.1); Sodium 145 mmol/L (135-145)
[2025-04-02 18:38] LABS: Creatinine Urine 96.96 mg/dL; Protein/Creatinine Ratio, Ur 0.17 (<0.2); Total Protein Urine Random 16 mg/dL (<12)
== END 2025-04-02 10:22 | disposition home or self-care (01) ==
LOC: HO.HKASLDS 10:21
PROVIDERS: Visit Provider Internal Medicine Nephrology
DX: R60.0 Localized edema (principal)
CPT/HCPCS: 36415; 80051; 82565; 82570; 84156; 84520

== ENCOUNTER 2025-04-04 09:53 | Outpatient (AMB) | payer OTHER, SELFPAY ==
[2025-04-04 09:57] VITALS: BP 144/80; PULSE 73; O2SAT 98; BMI 38.8
--- NOTE | 2025-04-04 09:57 | MHC.PC.OV ---
Vital Signs 04/04/25 09:57 Height 5 ft 2 in Weight 212 lb BMI 38.8 BP 144/80 H Blood Pressure Location Rt brachial Position Sitting Pulse 73 Pulse Source Pulse Oximeter Pulse Oximetry (%) 98 Oxygen Delivery Method Room Air Intake Visit Reasons: 4m follow up Accompanied by: Self / Same As Patient Allergies ibuprofen [IBUPROFEN] Allergy (Mild, Verified 04/04/25 09:57) RASH, hives Medication List - Last Reconciled 04/04/25 by SHELDON Sanches- acetaminophen ER (Tylenol 8 Hour) 650 mg PO Q12H PRN albuterol sulfate 5 mg inhalation Q4H PRN albuterol sulfate 90 mcg/actuation 2 puffs inhalation Q20M PRN amlodipine 10 mg PO DAILY 90 days aripiprazole 5 mg PO DAILY atorvastatin 20 mg PO DAILY blood pressure kit-extra large As directed blood sugar diagnostic ([employer] Ultra Test strips) Use to check blood sugar twice daily: fasting blood sugar and a random blood sugar blood-glucose meter ([employer] Ultra2 Meter) Use to check blood sugar twice daily: fasting blood sugar and a random blood sugar buspirone mg PO carvedilol 25 mg PO BID cholecalciferol (vitamin D3) 50 mcg PO DAILY clonidine HCl 0.1 mg PO BID 30 days diclofenac sodium 1% (Arthritis Pain (diclofenac)) 4 grams topical QID 30 days dicyclomine 20 mg PO BID PRN 90 days docusate sodium 100 mg PO BEDTIME empagliflozin 25 mg PO DAILY 90 days flash glucose scanning reader ([employer] Susu 2 [place]) As directed flash glucose sensor ([employer] Susu 2 Sensor kit) test blood sugar 4 times per day fluticasone propionate 110 mcg/actuation 1 puff inhalation BID 30 days gabapentin 100 mg PO BEDTIME 30 days humidifiers As directed hydrochlorothiazide 25 mg PO DAILY 30 days hydroxyzine HCl 10 mg PO TID PRN incontinence pad, liner, disp use daily for incont ketoconazole 2% 1 appl topical DAILY lancets Use to check blood sugar twice daily: fasting blood sugar and a random blood sugar magnesium oxide 400 mg PO BEDTIME 30 days melatonin 3 mg PO QPM naloxone 4 mg/actuation (Narcan) 4 mg intranasal Q2M PRN omeprazole 20 mg PO BID rivaroxaban (Xarelto) 20 mg PO DAILY sennosides-docusate sodium 8.6-50 mg (Senna Plus) 2 tab-caps (2 x 8.6-50 mg) PO BEDTIME 60 days sertraline 100 mg PO DAILY spironolactone 25 mg PO BID tizanidine 4 mg PO TID PRN tramadol 50 mg PO BEDTIME PRN 10 days zolpidem 5 mg PO BEDTIME PRN Tobacco use date assessed: 12/04/24 Dental Screening Dental Screen Date: 12/04/24 HPI 4m follow up HPI Details Chief Complaint The patient presents for routine follow-up of chronic conditions. History of Present Illness The patient is a 60-year-old female presenting for a routine follow-up of her chronic conditions. Her medical history is notable for neuropathy, though sensation is preserved with monofilament on this examination. Feet integrity is maintained bilaterally. The patient also has a history of Type 2 Diabetes Mellitus, currently managed effectively with an A1c of 6.9%. No alterations in her diabetes management are being instituted at this time. Morbid obesity is another chronic issue, potentially impacting her overall health, though currently stable without recent complications. Regular screening tests, including colonoscopy and mammogram, are current, supporting health maintenance. Social History - No discussion of employment, housing, education or family status. - No mention of substance use or exercise. - No details provided regarding nutritional intake or weight management. Health Maintenance - Colonoscopy is up to date. - Mammogram is up to date. Review of Systems - Nervous System: Reports neuropathy, with intact sensation using monofilament. - Respiratory: Denies respiratory symptoms; lungs are fairly clear. Physical Exam General: Cooperative, healthy appearing, comfortable, no acute distress and well developed, morbidly obese Orientation: Patient oriented x3 Limitations: No limitations Head: Normal to inspection Ears: Hearing grossly normal bilaterally Nose: Normal external nose present Face and sinus: Normal facial exam Eyes: Appearance normal, both eyes and all related structures Neck: Normal visual inspection and Yes full ROM Respiratory: Lungs were fairly clear, normal respiratory effort and able to speak in complete sentences. Clear to auscultation bilaterally Cardiovascular: Regular rate and rhythm. Normal S1 and S2 GI: Normal to inspection. Soft to palpation and nontender Skin: No rashes or lesions noted Neuro: Patient oriented x3, does have some neuropathy, though she had positive sensation with the use of monofilament Extremities: Feet were intact bilaterally, normal to inspection Results - Labs: A1c is 6.9. Plan 6. 9%, with no adjustments at this visit. Her neuropathy management remains unchanged, given the preserved sensation and bilateral foot integrity. The stability of morbid obesity will be monitored, emphasizing the importance of regular screenings, which are up to date, including colonoscopy and mammogram. The emphasis remains on monitoring her chronic health issues and ensuring effective management to prevent complications.: Discussion Notes The patient's neuropathy, diabetes, and morbid obesity were reviewed comprehensively during this consultation. I confirmed the stability of her diabetes management with her A1c at 6.9% and discussed the current management plan, which will remain unchanged due to stable health metrics. I reassured her regarding the lack of need for adjustments concerning her neuropathy since sensation and foot health are intact. We also reviewed her routine screening tests, highlighting the importance of maintaining these preventative measures. No additional treatments or tests are necessary at this time, and the focus shall remain on regular monitoring of her chronic health conditions. Patient Instructions - Continue current diabetes management. - Maintain routine screenings, which are currently up to date. - Monitor overall health and promptly report any new symptoms or concerns. [facility] Medical History PAF (paroxysmal atrial fibrillation) Barretts esophagus Hx of flexible sigmoidoscopy Osteoarthritis of left hip Spondylosis without myelopathy or radiculopathy, 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 Sacroiliitis Asthma WENDY (obstructive sleep apnea) Morbid obesity Swelling of both lower extremities Afib Disc degeneration, lumbar Cervical pain (neck) Calcaneal spur Benign neoplasm breast skin Bursitis, shoulder Xanthelasma Auditory hallucinations Impaired glucose tolerance Hyperlipidemia Anxiety Depression Adenomatous polyp of colon Esophagitis Hypertensive urgency Palpitations HTN (hypertension) Dyspepsia GERD (gastroesophageal reflux disease) Surgical History Hx of colonoscopy H/O esophagogastroduodenoscopy (09/01/15) Status post Margariat fundoplication (10/27/12) History of removal of cyst Hx of cholecystectomy History of hysterectomy Family History Father CVD (cardiovascular disease) HTN (hypertension) Diabetes Mother HTN (hypertension) Diabetes CVD (cardiovascular disease) Brother Pacemaker Maternal Grandmother Throat cancer Brother No problems noted. Daughter Hx LEEP (loop electrosurgical excision procedure), cervix, Other Mental health disorder Substance use disorder Social History Household Members: None Housing: House Are you a primary respiratory care practitioner to a significant other at home: No Do you presently have visiting nurse or other home services: No Alcohol intake: never Patient Tobacco Use Status: Never used Tobacco e-Cigarette/Vaping Use: Never Used Second Hand Smoke Exposure: No Advance Directives Date on File: 03/16/21 service: No Current occupational status: disabled Sexual orientation: Straight/Heterosexual Gender identity: Female Cognitive needs: No Hearing needs: No Vision needs: No Questionnaire Thrive Questionnaire Date Thrive assessed: 12/04/24 I am a: Patient What is your living situation today?: I have a steady place to live Within the past 12 months, did the food you bought not last and you didn't have the money to get more?: Often true Within the past 12 months, did you worry whether your food would run out before you got money to buy more?: Never true Do you have trouble paying for medicines?: No Do you have trouble getting transportation to medical appointments?: No Do you have trouble paying your heating and electricity bill?: No Do you have trouble taking care of your child, family member or friend?: No Do you have trouble with day-to-day activities such as bathing, preparing meals, shopping, managing finances, etc.?: Yes Are you currently unemployed and looking for a job?: No Are you interested in more education?: No Please select the resources that you would like help with: None Currently or been in a relationship where the following occur: No concerns reported THRIVE Score: 1 DION-7 AMB Questionnaire DION-7 Date DION - 7 assessed: 12/04/24 Source: Developed by Drs. Leonardo Grant, Philly Velasquez, Jose Ramon Poon and colleagues, with an educational gifty from [employer]. Physical exam (Primary Care) Vital Signs: Last Vital Signs Pulse 73 04/04/25 09:57 BP 144/80 H 04/04/25 09:57 Pulse Ox 98 04/04/25 09:57 Oxygen Delivery Method Room Air 04/04/25 09:57 BMI result Body Mass Index 38.8 Tobacco/Smoking Status: Tobacco use Status Tobacco use date assessed 12/04/24 04/04/25 09:59 Patient Tobacco Use Status Never used Tobacco 04/04/25 09:59 e-Cigarette/Vaping Use Never Used 04/04/25 09:59 Thrive Assessment: Date of Thrive Assessment Date Thrive assessed 12/04/24 04/04/25 09:59 Currently or been in a relationship where the following occur: No concerns reported Results AMB Hemoglobin A1c AMB Hemoglobin A1c 6.9 % Last Edit by Cezar Guthrie CMA on 04/04/25 10:26 Results Reviewed Results Reviewed: Laboratory Last Values Hgb A1c (Clinic) 6.9 % (4.0-6.0) H 04/04/25 10:16 Coding Level of Care Code Est Pt Level 3 (60721) Diagnoses Type 2 diabetes mellitus with diabetic nephropathy, without long-term current use of insulin E11.21 Diabetes mellitus type: type 2 Diabetes mellitus termite helper insulin use: without termite helper use Diabetes mellitus complication status: with kidney complications Diabetes mellitus complication detail: with nephropathy Assessment & Plan Assessment & Plan (1) Diabetes: Code(s): E11.9 - Type 2 diabetes mellitus without complications Category: Medical Qualifiers: Diabetes mellitus type: type 2 Diabetes mellitus termite helper insulin use: without senior living use Diabetes mellitus complication status: with kidney complications Diabetes mellitus complication detail: with nephropathy Qualified Code(s): E11.21 - Type 2 diabetes mellitus with diabetic nephropathy Plan . Orders: Orders Complete Blood Count Auto Diff Today E11.21 - Type 2 diabetes mellitus with diabetic nephropathy TSH reflex Free T4 Today E11.21 - Type 2 diabetes mellitus with diabetic nephropathy AMB Hemoglobin A1c Today Z13.9 - Encounter for screening, unspecified Comprehensive Addison. Panel Fast Today E11.21 - Type 2 diabetes mellitus with diabetic nephropathy UA CC w/rflx Micro + Cult Today E11.21 - Type 2 diabetes mellitus with diabetic nephropathy Lipid Panel Today E11.21 - Type 2 diabetes mellitus with diabetic nephropathy
--- OUTSIDE RECORDS SUMMARY | 2025-04-04 10:48 | XMS_ITS | Patient Health Record ---
Author Organization [facility] Address [address], [place] [id number] Care Team Providers Care Projection Printer Name Role Phone No, PCP Primary Care [...] [facility] [address] [place] [address] [phone] [id number] Nydia Schuster Self - patient is the insured Medical (General) History Medical History History ICD Code HTN Depression Asthma Astma exacerbation Lumbar back pain Xanthelasma Hot flashes due to menopause Carpal tunnel syndrome on both sides Other chronic pain anxiety
--- OUTSIDE RECORDS SUMMARY | 2025-04-04 10:48 | XMS_ITS | Clinical Summary ---
Author Organization [facility] Address [address] [place] [id number] Care Team Providers Care Billet Heater Operator Name Role Phone Alfredo Massey NP Primary Care Provider [phone] Allergies Active Allergy Reactions Criticality Noted Date [...] patient's age to complete this topic Insurance [facility] ([id number]) [facility] ([id number]) Care Teams Billet Heater Operator Relationship Specialty Start Date End Date Alfredo Massey NP [address] [place] [address] PCP - General Nurse Practitioner 03/03/22
--- OUTSIDE RECORDS SUMMARY | 2025-04-04 10:48 | XMS_ITS | Clinical Summary ---
Author Organization [facility] Address [address] [place] [address] Care Team Providers Care Fruit Rancher Name Role Phone Unavailable Primary Care Provider [...] Charting 12/23/2023 12/21/2022 Dental Prophy 12/23/2023 12/21/2022 [id number] ( season) 2024 Imm-Influenza (#1) 2024 Alcohol [...] Most Recently Relevant to Health Maintenance Insurance [facility]
== END 2025-04-04 10:47 | disposition home or self-care (01) ==
LOC: HO.HMCC 09:54
PROVIDERS: PCP Nurse Practitioner Family; Visit Provider Nurse Practitioner Family
DX: Z13.9 Encounter for screening, unspecified (principal); E11.21 Type 2 diabetes mellitus with diabetic nephropathy

== ENCOUNTER → 2025-04-04 09:53 | Outpatient (BNVA) | payer OTHER, SELFPAY | PROVIDERS: PCP Nurse Practitioner Family; Visit Provider Nurse Practitioner Family | DX: E11.21 Type 2 diabetes mellitus with diabetic nephropathy (principal); E11.40 Type 2 diabetes mellitus with diabetic neuropathy, unspecified; E66.01 Morbid (severe) obesity due to excess calories; Z68.38 Body mass index [BMI] 38.0-38.9, adult | CPT/HCPCS: 83036; 99212 ==

== ENCOUNTER 2025-04-09 09:56 | Outpatient (AMB) | payer OTHER, SELFPAY ==
[2025-04-09 10:07] VITALS: BP 170/82; BMI 38.8
--- NOTE | 2025-04-09 10:07 | HO.NEPHOV ---
Vital Signs 04/09/25 10:07 Height 5 ft 2 in Weight 212 lb BMI 38.8 BP 170/82 H Blood Pressure Location Lt brachial Position Sitting Intake Visit Reasons: Edema-Conf Passenger Conductor Required: No Accompanied by: Self / Same As Patient Allergies ibuprofen [IBUPROFEN] Allergy (Mild, Verified 04/09/25 10:11) RASH, hives HPI Comments Details: Nydia was seen today in F/U for CKD. She has multiple other medical issues including diabetes mellitus and hypertension. She had been on Jardiance, JELANI inhibitor and diuretics . Her serum creatinine is back to baseline . She has history of nephrolithiasis in the past. She underwent a renal ultrasound which did not show any hydronephrosis. She does not have any nausea, vomiting, diarrhea, hematuria, dizziness, chest pain, shortness of breath, proximal nocturnal dyspnea, orthopnea but has been having pedal edema. Her lood pressure has been fluctuant and needed quite a number medications to keep it close to goal. Her blood sugar control is fair. She claims to be hydrating adequately. She does not have any epistaxis, photosensitivity, new skin rashes or joint swellings. [facility] Medical History PAF (paroxysmal atrial fibrillation) Barretts esophagus Hx of flexible sigmoidoscopy Osteoarthritis of left hip Spondylosis without myelopathy or radiculopathy, 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 Sacroiliitis Asthma WENDY (obstructive sleep apnea) Morbid obesity Swelling of both lower extremities Afib Disc degeneration, lumbar Cervical pain (neck) Calcaneal spur Benign neoplasm breast skin Bursitis, shoulder Xanthelasma Auditory hallucinations Impaired glucose tolerance Hyperlipidemia Anxiety Depression Adenomatous polyp of colon Esophagitis Hypertensive urgency Palpitations HTN (hypertension) Dyspepsia GERD (gastroesophageal reflux disease) Surgical History Hx of colonoscopy H/O esophagogastroduodenoscopy (09/01/15) Status post Margarita fundoplication (10/27/12) History of removal of cyst Hx of cholecystectomy History of hysterectomy Family History Father CVD (cardiovascular disease) HTN (hypertension) Diabetes Mother HTN (hypertension) Diabetes CVD (cardiovascular disease) Brother Pacemaker Maternal Grandmother Throat cancer Brother No problems noted. Daughter Hx LEEP (loop electrosurgical excision procedure), cervix, Other Mental health disorder Substance use disorder Social History Household Members: None Housing: House Are you a primary acute care assistant to a significant other at home: No Do you presently have visiting nurse or other home services: No Alcohol intake: never Patient Tobacco Use Status: Never used Tobacco e-Cigarette/Vaping Use: Never Used Second Hand Smoke Exposure: No Advance Directives Date on File: 03/16/21 service: No Current occupational status: disabled Sexual orientation: Straight/Heterosexual Gender identity: Female Cognitive needs: No Hearing needs: No Vision needs: No Review of Systems Const All systems reviewed & are unremarkable except as noted in HPI and below Physical Exam Vital Signs: Last Vital Signs BP 170/82 H 04/09/25 10:07 BMI result Body Mass Index 38.8 Const General: comfortable and no acute distress Orientation/consciousness: patient oriented x3 HEENT Head: Yes normocephalic Mouth: Normal oral and palatal mucosa present Eyes EOM: EOMs intact bilaterally Neck Neck: Yes supple Resp Auscultation: clear to auscultation bilaterally Cardio Jugular venous distension: no JVD Rate: regular rate GI Palpation (GI): Soft to palpation Auscultation: normal bowel sounds General: Yes no CVA tenderness Back/Spine/Pelvis Back: no CVA tenderness Skin General skin exam: no rashes or lesions noted Neuro General: patient oriented x3 and moves all extremities Extrem General: Yes no pedal edema Results Reviewed Nephrology Results: Sodium 145 mmol/L (135-145) 04/02/25 Potassium 4.2 mmol/L (3.3-5.1) 04/02/25 Chloride 110 mmol/L (96-108) H 04/02/25 Carbon Dioxide 19 mmol/L (22-29) L 04/02/25 BUN 24 mg/dL (9-16) H 04/02/25 Creatinine 1.21 mg/dL (0.5-1.4) 04/02/25 Urine Creatinine 96.96 mg/dL 04/02/25 Protein/Creatinin Ratio 0.17 (<0.2) 04/02/25 Assessment & Plan Assessment & Plan (1) HTN (hypertension): Code(s): I10 - Essential (primary) hypertension Category: Medical Qualifiers: Hypertension type: primary hypertension Qualified Code(s): I10 - Essential (primary) hypertension (2) CKD stage 3a, GFR 45-59 ml/min: Code(s): N18.31 - Chronic kidney disease, stage 3a Category: Medical Plan Nydia has had RUTH due to compromise in renal perfusion with resultant tubular injury which has resolved. She has been taking JELANI inhibitor, Jardiance, hydrochlorothiazide and nonsteroidals at that time. Her urine output is good. Her renal ultrasound did not show any obstructive uropathy. Her renal function is back to baseline. She is on multiple antihypertensive medications to keep her blood pressure at goal. She is not known to have any significant proteinuria. She clearly needs to lose significant weight. She was encouraged to avoid nonsteroidal anti-inflammatories. She needs to cut back sodium in the diet especially given history of renal calculus and hypertension. She also follows up with cardiology ( A Fib). Further management is pending evolving data Orders: Orders Creatinine 6 Months N18.31 - Chronic kidney disease, stage 3a Electrolytes 6 Months N18.31 - Chronic kidney disease, stage 3a Blood Urea Nitrogen 6 Months N18.31 - Chronic kidney disease, stage 3a Coding Level of Care Code Est Pt Level 4 (38808) Diagnoses Primary hypertension I10 Hypertension type: primary hypertension CKD stage 3a, GFR 45-59 ml/min N18.31
--- OUTSIDE RECORDS SUMMARY | 2025-04-09 11:02 | XMS_ITS | Clinical Summary ---
Author Organization [facility] Address [address] [place] [id number] Care Team Providers Care Foster Winder Name Role Phone Alfredo Massey NP Primary Care Provider [phone] Allergies Active Allergy Reactions Criticality Noted Date [...] patient's age to complete this topic Insurance [facility] ([id number]) [facility] ([id number]) Care Teams Foster Winder Relationship Specialty Start Date End Date Alfredo Massey NP [address] [place] [address] PCP - General Nurse Practitioner 03/03/22
--- OUTSIDE RECORDS SUMMARY | 2025-04-09 11:02 | XMS_ITS | Clinical Summary ---
Author Organization [facility] Address [address] [place] [address] Care Team Providers Care Instrument Tester Name Role Phone Unavailable Primary Care Provider [...] 2009 Flexible Sigmoidoscopy 2009 Imm-Zoster, Recombinant (1 of 2) 2014 Dental BW 12/23/2023 12/21/2022, 09/10/2022 Dental Examination 12/23/2023 12/21/2022, 09/10/2022 Dental Perio Charting 12/23/2023 12/21/2022 Dental Prophy 12/23/2023 12/21/2022 [id number] ( season) 2024 Imm-Influenza (#1) 2024 Alcohol and Drug Screen 11/21/2024 Diabetes Screening 11/25/2025 11/25/2022 Dental FMX/Pano 09/12/2027 09/10/2022 Cervical Ablation/Cold-Knife Conization Discontinued Cervical Cryotherapy Discontinued Colposcopy Discontinued Endometrial Biopsy Discontinued Excision/Leep Discontinued HPV Genotyping Discontinued Vaginal Pap Discontinued Vulvoscopy Discontinued Procedures Procedure [...] Most Recently Relevant to Health Maintenance Insurance [facility]
--- OUTSIDE RECORDS SUMMARY | 2025-04-09 11:02 | XMS_ITS | Patient Health Record ---
Author Organization [facility] Address [address], [place] [id number] Care Team Providers Care Furnace Packer Name Role Phone No, PCP Primary Care [...] [facility] [address] [place] [address] [phone] [id number] Nydia Schuster Self - patient is the insured Medical (General) History Medical History History ICD Code HTN Depression Asthma Astma exacerbation Lumbar back pain Xanthelasma Hot flashes due to menopause Carpal tunnel syndrome on both sides Other chronic pain anxiety
== END 2025-04-09 10:28 | disposition home or self-care (01) ==
LOC: HO.HKAS 09:57
PROVIDERS: PCP Nurse Practitioner Family; Visit Provider Internal Medicine Nephrology
DX: I10 Essential (primary) hypertension (principal); N18.31 Chronic kidney disease, stage 3a
CPT/HCPCS: 99214

== ENCOUNTER → 2025-04-09 09:56 | Outpatient (BNVA) | payer OTHER, SELFPAY | PROVIDERS: PCP Nurse Practitioner Family; Visit Provider Internal Medicine Nephrology | DX: I12.9 Hypertensive chronic kidney disease with stage 1 through stage 4 chronic kidney disease, or unspecified chronic kidney disease (principal); N18.31 Chronic kidney disease, stage 3a | CPT/HCPCS: 99212 ==

== ENCOUNTER 2025-04-18 08:54 | Outpatient (AMB) | payer OTHER, SELFPAY ==
[2025-04-18 08:57] VITALS: BP 172/69; PULSE 75; O2SAT 97; BMI 38.8
--- NOTE | 2025-04-18 08:57 | MHC.OFFVIS ---
Vital Signs 04/18/25 08:57 Height 5 ft 2 in Weight 212 lb BMI 38.8 BP 172/69 H Blood Pressure Location Lt brachial Position Sitting Pulse 75 Pulse Oximetry (%) 97 Oxygen Delivery Method Room Air Intake Visit Reasons: 3 mo f/u FU GERD, elevated LFTs Intake Note: Patient 3 month follow up for Elevated LFTs and GERD. Patient cc: between diarrhea and constipation on and off, after eating she can not drink liquid. Denies any other GI issues. Edger Automatic Required: No Accompanied by: Self / Same As Patient Allergies ibuprofen [IBUPROFEN] Allergy (Mild, Verified 04/18/25 08:56) RASH, hives Medication List - Last Reconciled 04/18/25 by Mara Burger MD acetaminophen ER (Tylenol 8 Hour) 650 mg PO Q12H PRN albuterol sulfate 5 mg inhalation Q4H PRN albuterol sulfate 90 mcg/actuation 2 puffs inhalation Q20M PRN amlodipine 10 mg PO DAILY 90 days aripiprazole 5 mg PO DAILY atorvastatin 20 mg PO DAILY blood pressure kit-extra large As directed blood sugar diagnostic (Brijot Imaging SystemsTouch Ultra Test strips) Use to check blood sugar twice daily: fasting blood sugar and a random blood sugar blood-glucose meter (Brijot Imaging SystemsTouch Ultra2 Meter) Use to check blood sugar twice daily: fasting blood sugar and a random blood sugar buspirone mg PO carvedilol 25 mg PO BID cholecalciferol (vitamin D3) 50 mcg PO DAILY clonidine HCl 0.1 mg PO BID 30 days diclofenac sodium 1% (Arthritis Pain (diclofenac)) 4 grams topical QID 30 days dicyclomine 20 mg PO BID PRN 90 days docusate sodium 100 mg PO BEDTIME empagliflozin 25 mg PO DAILY 90 days flash glucose scanning reader (RetroficiencyStyle Susu 2 [place]) As directed flash glucose sensor (FreeStyle Susu 2 Sensor kit) test blood sugar 4 times per day fluticasone propionate 110 mcg/actuation 1 puff inhalation BID 30 days gabapentin 100 mg PO BEDTIME 30 days humidifiers As directed hydrochlorothiazide 25 mg PO DAILY 30 days hydroxyzine HCl 10 mg PO TID PRN incontinence pad, liner, disp use daily for incont ketoconazole 2% 1 appl topical DAILY lancets Use to check blood sugar twice daily: fasting blood sugar and a random blood sugar magnesium oxide 400 mg PO BEDTIME 30 days melatonin 3 mg PO QPM naloxone 4 mg/actuation (Narcan) 4 mg intranasal Q2M PRN omeprazole 20 mg PO BID rivaroxaban (Xarelto) 20 mg PO DAILY sennosides-docusate sodium 8.6-50 mg (Senna Plus) 2 tab-caps (2 x 8.6-50 mg) PO BEDTIME 60 days sertraline 100 mg PO DAILY spironolactone 25 mg PO BID tizanidine 4 mg PO TID PRN tramadol 50 mg PO BEDTIME PRN 10 days zolpidem 5 mg PO BEDTIME PRN HPI HPI 3 mo f/u FU GERD, elevated LFTs: Details: GI CLINIC VISIT FOR THIS 60-YEAR-OLD CITIZEN OF [place] FOR RECTAL BLEEDING, COLON POLYPS AND MALAVE'S ESOPHAGUS. PATIENT IS ON XARELTO FOR PAROXYSMAL ATRIAL FIBRILLATION AND IS FOLLOWED BY DR. 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 Abdominal ultrasound results were reviewed. Intermittent diarrhea and constipation - has normal BMs on most days. Denies abdominal pain or rectal bleeding. Continues to have early satiety - has to wait 2-3 hrs after meals before she can drink water or juice. Can have vomiting/regurgitation if she drinks fluids with meals. Intentional wt loss from 225 to 212 lbs. PAST VISITS: EGD and colon results reviewed with the patient. Advised repeat EGD and Colon in 3 years Denies any GI problems Patient feel she is not digesting her food, abd hernia pain, and constipation on and off. Had dinner at 6:30 pm yesterday (Had broccoli, aspragus and steak) and feels like she ate today BM can vary between constipation and soft BM Sometimes she has to strain to have a BM. Notes intermittent lower cramps lasting for 5 minutes (usually twice a day) Denies rectal bleeding EGD results reviewed. Feels good and denies recent black stools Intentional wt loss of 50 lbs Nausea is better - denies nausea, abd pain or diarrhea. Weight and appetite has been stable. Accompanied by her daughter (works as an MA in wt management at [employer]) who interpreted for the pt Sometimes resolves after eating and sometimes persists. Notes heartburn mostly during the day. Has dinner at 5 pm and goes to bed at midnight - sometimes has a late night snack. Denies dysphagia. Abdominal pain is better. Has post prandial diarrhea since her GB surgery. Sometimes notes stinging in the rectum and there can be clear red blood on the TP. EGD and Colonoscopy and bx results were reviewed ? ? ? Denies recurrent abdominal pain. ? ? ? Patient notes improvement in dysphagia since esophageal balloon dilation ? ? ? Constipation has improved since she had her colonoscopy ?Complains of constant blanca-umblical abd pain for the past 3 days. ? ? ? Never had this pain in the past. ? ? ? Pain is 6/10 in intensity and is burning in character. ? ? ? Complains of nausea and has not been eating. ?? ? Vomited yesterday. ?? ? Denies fever or chills or any change in bowel habits.. ?? ? Took pork chops and british fries 10 min before the pain started. ? ? ? Tried peptobismol and it did not help the pain. ? Feeling better, diagnosed with COVID infection last month and has recovered. ? Fever and body aches have cleared up ? Denies being constipated or having ongoing rectal bleeding. ? ? ? Having a lot of heartburn -? advised to increase omeprazole to 20 mg twice daily. ? Notes improvement in constipation - BM 1-2 times a day ? Notes some stinging when she uses the bathroom.. ? Denies blanca-anal pain/discomfort. Has not been using any topical agent for hemorrhoids. ? Denies ongoing diarrhea. ? Post prandial fullness after taking 5-6 bites has improved ? Takes 1-2 meals a day depending on her appetite. ? Has gained weight since the [facility] ?LABS IN [facility]:?12/14/19 NORMAL CHEM PANEL AND LFTS EXCEPT MILD INCREASE IN ALK P OF 131 ? 10/09 STOOL FOR H PYLORI ANTIGEN WAS NEGATIVE. ?IMAGING STUDIES: 01/01/21 ABDOMINAL US WAS NORMAL: ? LIVER: Normal. The liver is normal in size. The liver contour is normal. Parenchymal echogenicity is normal. No focal hepatic lesion. There is no intrahepatic biliary duct dilatation seen. GALLBLADDER: Surgically absent. COMMON BILE DUCT: Normal in caliber measuring 0.2 cm in diameter. 01/10/20 GASTRIC EMPTYING STUDY SHOWED:? Retention in the stomach at each time interval was: ? 1 hour 59% (normal 37%-90%) ? 2 hours 6% (normal 30%-60%) ? 3 hours 5% ? 4 hours (Not Obtained) (normal 0%-10%) ? IMPRESSION: ? Normal solid food gastric emptying study. ? 08/[address] SCAN SHOWED: ? No evidence for acute abdominal or pelvic inflammatory or infectious processes. ? Small hiatal hernia. ?ENDOSCOPIC STUDIES; 01/26/23 EGD WAS PERFORMED BY DR CALDWELL FOR EVALUATION OF BLACK STOOLS: EGD Findings:? Esophagus:? Severe esophagitis noted at the GEJ at 34 cm. One ulcer with small clot was seen at 6 o clock position. The ulcer started oozing after the clot was flushed off. A resolution 360 Endoclip was placed for hemostasis. The Z line was at 34 cm. Hiatal hernia was noted with diaphragmatic pinch at 36 cm. Stomach: Scattered erosions and heme were noted mostly in the body and antrum. Random gastric biopsies were taken to rule out H Pylori infection. Duodenum: ? A focal area with villous effacement and erythema was noted in the 2nd portion of the duodenum.? Cold forceps biopsies were taken.? Remaining duodenum normal.?EGD Impressions:? Severe esophagitis with ulcer (endoclip) Gastritis (biopsy) Normal duodenum (biopsy)??Recommendations:?? Follow biopsy results. Our office will call or send a letter with results within 7-10 days. ?continue omeprazole 20 mg b.i.d. for at least 8 weeks and then decrease to 20 mg per day.? Repeat EGD will be scheduled in 8-10 weeks to assess for healing of esophagitis. Resume anticoagulation tomorrow. If H pylori +, patient will be prescribed eradication therapy followed by test of cure. Avoid NSAIDs.02/13/21 EGD AND COLONOSCOPY SHOWED:? ESOPHAGUS: Focal esophagitis at GE junction with 1 cms tongue of Malave's - biopsied. Balloon dilation was performed with 19 and 20 mm CRE balloon x 60 seconds at each level. STOMACH: Gastritis and intact fundal wrap on retroflexed exam Colonoscopy Findings:? No polyps were detected. Moderate diverticulosis seen in the left colon Moderate hemorrhoids on retroflexed exam. Plan: Repeat Colonoscopy interval based on path results - in 3 years due to fair prep. Above findings were reviewed with the patient and GERD and diverticulosis handouts were given in the discharge area BIOPSIES SHOWED: A.? Small bowel, biopsy:? Duodenal mucosa within normal limits. B.? Stomach, antrum, biopsy:? Antral-type mucosa with mild chronic inactive inflammation; no Helicobacter organisms seen. C.? Esophagus, biopsy: - Malave esophagus with background moderate chronic active inflammation. - No dysplasia seen. - Chronic esophagitis. 11/22/19 EGD AND FLEXIBLE SIGMOIDOSCOPY SHOWED:? Endoscopy Findings: ? LARYNX: Normal ? ESOPHAGUS: Small hiatal hernia, minimal esophagitis and possible Malave's. ? STOMACH: Gastritis ? DUODENUM: Normal ? Flexible sigmoidoscopy Findings: ? One polyp removed ? Moderate diverticulosis seen in the sigmoid colon ? Moderate hemorrhoids on retroflexed exam - likely source of rectal bleeding. ? Plan: ? Await pathology results ? Patient has an appointment on 11/29/2019 in the GI Clinic with Mara Burger M.D. ? Pt to schedule a Colonoscopy interval based on path results - in 1-2 years if ? polyps are adenomatous and 10 years if polyps are hyperplastic. ? Above findings were reviewed with the patient. ? BIOPSIES SHOWED: ? A. Small bowel, biopsy: Small bowel mucosa with no significant histopathology; ? no villous abnormality identified; no increase in intraepithelial lymphocytes. ? B. Stomach, biopsy: Gastric mucosa with mild chronic, inactive gastritis; ? negative for Helicobacter pylori organisms; negative for intestinal metaplasia; negative for ? dysplasia. ? C. Esophagus, distal, biopsy: Esophagogastric junctional mucosa with moderate ? chronic inflammation and intestinal metaplasia (see Comment); negative for dysplasia; ? squamouS epithelium with reactive features suggestive of reflux disease. ? D. Colon, random, biopsy: Colonic mucosa within normal limits; no evidence of microscopic colitis. ? E. Colon, sigmoid polyp, polypectomy: Tubular adenoma. ? Comment: The findings are consistent with Malave's esophagus in the appropriate clinical/endoscopic setting. ? LETTER SENT ADVISING COLONOSCOPY IN 1 YR [facility] Medical History PAF (paroxysmal atrial fibrillation) Barretts esophagus Hx of flexible sigmoidoscopy Osteoarthritis of left hip Spondylosis without myelopathy or radiculopathy, 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 Sacroiliitis Asthma WENDY (obstructive sleep apnea) Morbid obesity Swelling of both lower extremities Afib Disc degeneration, lumbar Cervical pain (neck) Calcaneal spur Benign neoplasm breast skin Bursitis, shoulder Xanthelasma Auditory hallucinations Impaired glucose tolerance Hyperlipidemia Anxiety Depression Adenomatous polyp of colon Esophagitis Hypertensive urgency Palpitations HTN (hypertension) Dyspepsia GERD (gastroesophageal reflux disease) Surgical History Hx of colonoscopy H/O esophagogastroduodenoscopy (09/01/15) Status post Margarita fundoplication (10/27/12) History of removal of cyst Hx of cholecystectomy History of hysterectomy Family History Father CVD (cardiovascular disease) HTN (hypertension) Diabetes Mother HTN (hypertension) Diabetes CVD (cardiovascular disease) Brother Pacemaker Maternal Grandmother Throat cancer Brother No problems noted. Daughter Hx LEEP (loop electrosurgical excision procedure), cervix, Other Mental health disorder Substance use disorder Social History Household Members: None Housing: House Are you a primary career development facilitator to a significant other at home: No Do you presently have visiting nurse or other home services: No Alcohol intake: never Patient Tobacco Use Status: Never used Tobacco e-Cigarette/Vaping Use: Never Used Second Hand Smoke Exposure: No Advance Directives Date on File: 03/16/21 service: No Current occupational status: disabled Sexual orientation: Straight/Heterosexual Gender identity: Female Cognitive needs: No Hearing needs: No Vision needs: No Review of Systems Const All systems reviewed & are unremarkable except as noted in HPI and below Physical Exam Vital Signs: Last Vital Signs Pulse 75 04/18/25 08:57 BP 172/69 H 04/18/25 08:57 Pulse Ox 97 04/18/25 08:57 Oxygen Delivery Method Room Air 04/18/25 08:57 BMI result Body Mass Index 38.8 Const General: healthy appearing and no acute distress Nutritional Appearance: obese Orientation/consciousness: patient oriented x3 Limitations: ambulation with cane HEENT Head: Yes normal to inspection Ears: hearing grossly normal bilaterally Eyes Sclerae: sclerae normal Pupils: Equal, round and reactive pupils present Neck Neck: Yes normal visual inspection Chest Chest palpation & inspection: normal inspection of the chest Resp Effort & Inspection: normal respiratory effort Auscultation: clear to auscultation bilaterally Cardio Palpation: normal PMI Rate: regular rate Rhythm: regular rhythm Heart sounds: S1 normal heart sound present, S2 normal heart sound present and no murmurs GI Palpation (GI): Soft to palpation, nontender and No hepatosplenomegaly present Auscultation: normal bowel sounds Rectal Exam - Female: deferred Skin General skin exam: no rashes or lesions noted Neuro General: patient oriented x3, gait normal and moves all extremities Cranial nerves: Yes Equal, round and reactive pupils present Psych Appearance: grossly normal Mental Status: mental status grossly normal Assessment & Plan Assessment & Plan (1) Adenomatous polyp of colon: Code(s): D12.6 - Benign neoplasm of colon, unspecified Category: Medical (2) GERD (gastroesophageal reflux disease): Code(s): K21.9 - Gastro-esophageal reflux disease without esophagitis Category: Medical (3) Early satiety: Comment: 12/2019 gastric emptying study was normal Code(s): R68.81 - Early satiety Category: Medical (4) Chronic constipation: Code(s): K59.09 - Other constipation Category: Medical (5) Elevated liver enzymes: Code(s): R74.8 - Abnormal levels of other serum enzymes Category: Medical Plan 60 year old [place]-speaking female with depression, anxiety, hypertension, sleep apnea, asthma, hyperlipidemia, impaired glucose tolerance, GERD with hiatal hernia, auditory hallucinations, xanthelasma, bursitis of shoulder, benign neoplasm of skin and breast, chronic low back pain, calcaneal spur, bile salt induced diarrhea followed in GI for GERD, chronic constipation, history of colon polyps and hx of rectal bleeding - presumably from perianal skin lesions per patient. Patient complained of poor appetite and weight loss and reported a past history of peptic ulcer disease.? Stool test for H pylori antigen was negative PATIENT IS STATUS POST MARGARITA FUNDOPLICATION 2011. 11/08 evaluation with upper endoscopy showed a small hiatal hernia, minimal esophageal and gastritis. Same-day flexible sigmoidoscopy showed moderate sigmoid diverticulosis and internal hemorrhoids and a small tubular adenoma was removed. ?Esophageal biopsies showed presence of Malave's metaplasia.? Patient complains of symptoms of heartburn and was advised to increase omeprazole to 20 mg twice daily. Abdominal ultrasound and a gastric emptying study were normal. Symptoms are likely related to constipation and patient was advised to take MiraLax once daily with improvement in her symptoms Patient complains of periumbilical abdominal pain for the past 3 days associated with nausea and vomiting - now resolved ENDOSCOPIC STUDIES: 03/28/23 EGD SHOWED: ESOPHAGUS: Esophagitis seen on last EGD has healed. GE junction with 1 cms tongue of Malave's - biopsied. STOMACH: Mild gastritis Plan: Await pathology results BIOPSIES SHOWED: Gastroesophageal junction, biopsy: Squamocolumnar mucosa with mild inflammation and intestinal metaplasia; negative for dysplasia (see comment) Comment: These findings are consistent with Malave?s esophagus if the biopsies were taken from above the anatomic gastroesophageal junction. 01/2021 EGD AND COLONOSCOPY WERE PERFORMED: ESOPHAGUS: Focal esophagitis at GE junction with 1 cms tongue of Malave's - biopsied. Balloon dilation was performed with 19 and 20 mm CRE balloon x 60 seconds at each level. STOMACH: Gastritis and intact fundal wrap on retroflexed exam Colonoscopy Findings:? No polyps were detected. Moderate diverticulosis seen in the left colon Moderate hemorrhoids on retroflexed exam. Plan:? Repeat Colonoscopy interval based on path results - in 3 years due to fair prep - due on 01/2024. 09/16 - pt is feeling better with resolution of nausea and diarrhea 06/21/24 Had dinner at 6:30 pm yesterday (Had broccoli, aspragus and steak) and feels like she ate today BM can vary between constipation and soft BM Sometimes she has to strain to have a BM. (Of note GES was normal in Dec, 2019) 11/30/24 upper endoscopy with WATS3D(FU of Malave's) and a colonoscopy (FU of polyps) was performed and results as noted 12/13/24 Pt advised to have hepatitis serologies, iron studies and an abdominal ultrasound with elastography for evaluation of elevated LFT. She likely has fatty liver given BMI of 39.9 Repeat EGD and colon in 3 years (FU of Malave's and colon polyps) - due in Nov, 2027 04/18/25 Early satiety likely due to diabetic gastroparesis versus delayed gastric emptying due to tramadol (takes 50 mg once a day) Patient advised to schedule a gastric emptying study. FU in 3 months Orders: Orders NM gastric emptying study Today R68.81 - Early satiety Liver Panel Today R74.8 - Abnormal levels of other serum enzymes Coding Level of Care Code Est Pt Level 3 (12552) Diagnoses Adenomatous polyp of colon D12.6 GERD (gastroesophageal reflux disease) K21.9 Early satiety R68.81 Chronic constipation K59.09 Elevated liver enzymes R74.8 Time Spent (min) 18
--- OUTSIDE RECORDS SUMMARY | 2025-04-18 09:13 | XMS_ITS | Clinical Summary ---
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
== END 2025-04-18 09:46 | disposition home or self-care (01) ==
LOC: HO.HGI 08:54
PROVIDERS: PCP Nurse Practitioner Family; Visit Provider Internal Medicine Gastroenterology
DX: D12.6 Benign neoplasm of colon, unspecified (principal); K21.9 Gastro-esophageal reflux disease without esophagitis; R68.81 Early satiety; K59.09 Other constipation; R74.8 Abnormal levels of other serum enzymes
CPT/HCPCS: 99213

== ENCOUNTER → 2025-04-18 08:54 | Outpatient (BNVA) | payer OTHER, SELFPAY | PROVIDERS: PCP Nurse Practitioner Family; Visit Provider Internal Medicine Gastroenterology | DX: K21.9 Gastro-esophageal reflux disease without esophagitis (principal); D12.6 Benign neoplasm of colon, unspecified; R68.81 Early satiety; K59.09 Other constipation; R74.8 Abnormal levels of other serum enzymes; R79.89 Other specified abnormal findings of blood chemistry | CPT/HCPCS: 99212 ==

== ENCOUNTER 2025-05-27 12:56 | Outpatient (AMB) | payer OTHER, SELFPAY ==
[2025-05-27 13:01] VITALS: BP 126/64; PULSE 82; RESP 18; TEMP 36.9; O2SAT 96; BMI 38.4
--- NOTE | 2025-05-27 13:01 | A.OFFPC_ITS ---
Vital Signs 05/27/25 13:01 Height 5 ft 2 in Weight 210 lb BMI 38.4 BP 126/64 Blood Pressure Location Rt brachial Position Sitting Respiration 18 Pulse 82 Pulse Source Pulse Oximeter Temp 98.4 F Temp Source Oral Pulse Oximetry (%) 96 Oxygen Delivery Method Room Air Intake Visit Reasons: PE- A1C needed. Intake Note: Pt is here today for PE. Allergies ibuprofen (IBUPROFEN) Allergy (Mild, Verified 05/27/25 13:02) RASH, hives Medication List - Last Reconciled 05/27/25 by NIRMALA SanchesP- acetaminophen ER (Tylenol 8 Hour) 650 mg PO Q12H PRN albuterol sulfate 5 mg inhalation Q4H PRN albuterol sulfate 90 mcg/actuation 2 puffs inhalation Q20M PRN amlodipine 10 mg PO DAILY 90 days aripiprazole 5 mg PO DAILY atorvastatin 20 mg PO DAILY blood pressure kit-extra large As directed blood sugar diagnostic ([employer] Ultra Test strips) Use to check blood sugar twice daily: fasting blood sugar and a random blood sugar blood-glucose meter ([employer] Ultra2 Meter) Use to check blood sugar twice daily: fasting blood sugar and a random blood sugar buspirone mg PO carvedilol 25 mg PO BID cholecalciferol (vitamin D3) 50 mcg PO DAILY clonidine HCl 0.1 mg PO BID 30 days diclofenac sodium 1% (Arthritis Pain (diclofenac)) 4 grams topical QID 30 days dicyclomine 20 mg PO BID PRN 90 days docusate sodium 100 mg PO BEDTIME empagliflozin 25 mg PO DAILY 90 days flash glucose scanning reader ([employer]Style Susu 2 [place]) As directed flash glucose sensor ([employer] Susu 2 Sensor kit) test blood sugar 4 times per day fluticasone propionate 110 mcg/actuation 1 puff inhalation BID 30 days gabapentin 100 mg PO BEDTIME 30 days humidifiers As directed hydrochlorothiazide 25 mg PO DAILY 30 days hydroxyzine HCl 10 mg PO TID PRN incontinence pad, liner, disp use daily for incont ketoconazole 2% 1 appl topical DAILY lancets Use to check blood sugar twice daily: fasting blood sugar and a random blood sugar magnesium oxide 400 mg PO BEDTIME 30 days melatonin 3 mg PO QPM naloxone 4 mg/actuation (Narcan) 4 mg intranasal Q2M PRN omeprazole 20 mg PO BID rivaroxaban (Xarelto) 20 mg PO DAILY sennosides-docusate sodium 8.6-50 mg (Senna Plus) 2 tab-caps (2 x 8.6-50 mg) PO BEDTIME 60 days sertraline 100 mg PO DAILY spironolactone 25 mg PO BID tizanidine 4 mg PO TID PRN tramadol 50 mg PO BEDTIME PRN 10 days zolpidem 5 mg PO BEDTIME PRN Tobacco use date assessed: 05/27/25 Dental Screening Dental Screen Date: 05/27/25 Did you have a dental visit in the last 12 months?: Yes Did you have a dental problem in the last 6 months where you did not have access to dental care?: No Was dental information given to patient?: Patient has dentist HPI PE- A1C needed. HPI Details History of Present Illness The patient is a 60-year-old female presenting with a follow-up physical examination and management of diabetes mellitus. Her hemoglobin A1c is currently 6.9%, indicating controlled diabetes. She reports some neuropathy, with a slight lack of sensation in her feet, although they are intact bilaterally. The patient has undergone recent preventative screenings, including a colon cancer screening and an eye exam, both of which are up to date. Mammo due last month, will place a new order in. Lab orders already entered back in March Health Maintenance - Colon cancer screening: Up to date - Eye exam: Recently completed -mammogram order placed -does use a cpap Social History - Family status: Present with daughter ricco sanabria the visit Review of Systems - Cardiovascular: Denies chest pain - Respiratory: Denies increased dyspnea - Gastrointestinal: Denies abdominal sagrario n, constipation, diarrhea - Neurological: Reports neuropathy, marcos es suicidal or homicidal ideation Physical Exam General: Cooperative, healthy appearing, comfortable, no acute distress and well developed, morbidly obese, uses a cane Orientation: Patient oriented x3 Limitations: No limitations Head: Normal to inspection Ears: Hearing grossly normal bilaterally Nose: Normal external nose present Face and sinus: Normal facial exam Eyes: Appearance normal, both eyes and all related structures Neck: Normal visual inspection and Yes full ROM Respiratory: Normal respiratory effort and able to speak in complete sentences. Clear to auscultation bilaterally Cardiovascular: Regular rate and rhythm. Normal S1 and S2 GI: Normal to inspection. Soft to palpation and nontender Skin: No rashes or lesions noted Neuro: Patient oriented x3, reports some neuropathy and slight lack of sensation with the use of monofilament to bilaterally feet Extremities: Normal to inspection, feet intact bilaterally, positive dorsalis pedis pulse bilaterally. Faint tenderness to BLE with palpation (no active signs of cellulitis). trace edema noted. Results - Labs: Hemoglobin A1c is 6.9% Plan The patient's diabetes mellitus is currently managed with an A1c of 6.9%, indicating good control. Discussion about the potential use of a GLP-1 agonist was initiated, although the patient is not interested at this time. Preventative care measures, including colon cancer screening and eye exams, are up to date, ensuring comprehensive management of her health. Discussion Notes I discussed the current management of the patient's diabetes, noting her A1c of 6.9% as a positive indicator of control. We talked about the possibility of introducing a GLP-1 agonist in the future, although she is not interested at this time. I also confirmed that her preventative screenings, including colon cancer and eye exams, are up to date. Patient Instructions - Continue current diabetes management p beatriz and monitor blood sugar levels regularly. - Consider discussing GLP-1 agonist ther apy in future visits. - Ensure all preventative screenings rem ain up to date. FOR[facility]LY [facility], [facility] Medical History PAF (paroxysmal atrial fibrillation) Barretts esophagus Hx of flexible sigmoidoscopy Osteoarthritis of left hip Spondylosis without myelopathy or radiculopathy, 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 Sacroiliitis Asthma WENDY (obstructive sleep apnea) Morbid obesity Swelling of both lower extremities Afib Disc degeneration, lumbar Cervical pain (neck) Calcaneal spur Benign neoplasm breast skin Bursitis, shoulder Xanthelasma Auditory hallucinations Impaired glucose tolerance Hyperlipidemia Anxiety Depression Adenomatous polyp of colon Esophagitis Hypertensive urgency Palpitations HTN (hypertension) Dyspepsia GERD (gastroesophageal reflux disease) Surgical History Hx of colonoscopy H/O esophagogastroduodenoscopy (09/01/15) Status post Margarita fundoplication (10/27/12) History of removal of cyst Hx of cholecystectomy History of hysterectomy Family History Father CVD (cardiovascular disease) HTN (hypertension) Diabetes Mother HTN (hypertension) Diabetes CVD (cardiovascular disease) Brother Pacemaker Maternal Grandmother Throat cancer Brother No problems noted. Daughter Hx LEEP (loop electrosurgical excision procedure), cervix, Other Mental health disorder Substance use disorder Social History Household Members: None Housing: House Are you a primary health care marketing manager to a significant other at home: No Do you presently have visiting nurse or other home services: No Alcohol intake: never Patient Tobacco Use Status: Never used Tobacco e-Cigarette/Vaping Use: Never Used Second Hand Smoke Exposure: No Advance Directives Date on File: 03/16/21 service: No Current occupational status: disabled Sexual orientation: Straight/Heterosexual Gender identity: Female Cognitive needs: No Hearing needs: No Vision needs: No Questionnaire Thrive Questionnaire Date Thrive assessed: 12/04/24 I am a: Patient What is your living situation today?: I have a steady place to live Within the past 12 months, did the food you bought not last and you didn't have the money to get more?: Often true Within the past 12 months, did you worry whether your food would run out before you got money to buy more?: Never true Do you have trouble paying for medicines?: No Do you have trouble getting transportation to medical appointments?: No Do you have trouble paying your heating and electricity bill?: No Do you have trouble taking care of your child, family member or friend?: No Do you have trouble with day-to-day activities such as bathing, preparing meals, shopping, managing finances, etc.?: Yes Are you currently unemployed and looking for a job?: No Are you interested in more education?: No Please select the resources that you would like help with: None Currently or been in a relationship where the following occur: No concerns reported THRIVE Score: 1 AUDIT C Alcohol Use Questionnaire (AUDIT-C) 1. How often do you have a drink containing alcohol?: Never 3. How often do you have six or more drinks on one occasion?: Never Total Score: 0 DION-7 AMB Questionnaire DION-7 Date DION - 7 assessed: 12/04/24 Source: Developed by Drs. Leonardo L. Philly Grant, Jose Ramon Poon and colleagues, with an educational gifty from [employer]. Physical exam (Primary Care) Vital Signs: Last Vital Signs Temp 98.4 F 05/27/25 13:01 Pulse 82 05/27/25 13:01 Resp 18 05/27/25 13:01 BP 126/64 05/27/25 13:01 Pulse Ox 96 05/27/25 13:01 Oxygen Delivery Method Room Air 05/27/25 13:01 BMI result Body Mass Index 38.4 Tobacco/Smoking Status: Tobacco use Status Tobacco use date assessed 05/27/25 05/27/25 13:07 Patient Tobacco Use Status Never used Tobacco 05/27/25 13:07 e-Cigarette/Vaping Use Never Used 05/27/25 13:07 Thrive Assessment: Date of Thrive Assessment Date Thrive assessed 12/04/24 05/27/25 13:07 Currently or been in a relationship where the following occur: No concerns reported Results AMB Hemoglobin A1c AMB Hemoglobin A1c 6.9 % Last Edit by OMAR Bates on 05/27/25 13:1 9 Coding Level of Care Code Est Pt Level 3 (86271) Est Pt Prev Care 40-64y(96570) Diagnoses Encounter for routine adult physical exam with abnormal findings Z00.01 Type 2 diabetes mellitus with diabetic nephropathy, without long-term current use of insulin E11.21 Diabetes mellitus complication detail: with nephropathy Diabetes mellitus complication status: with kidney complications 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: without group home use Diabetes mellitus type: type 2 Assessment & Plan Assessment & Plan (1) Encounter for routine adult physical exam with abnormal findings: Code(s): Z00.01 - Encounter for general adult medical examination with abnormal findings Category: Medical (2) Diabetes: Code(s): E11.9 - Type 2 diabetes mellitus without complications Category: Medical Qualifiers: Diabetes mellitus complication detail: with nephropathy Diabetes mellitus complication status: with kidney complications Diabetes mellitus group home insulin use: without dedicated intermodal truck driver use Diabetes mellitus type: type 2 Qualified Code(s): E11.21 - Type 2 diabetes mellitus with diabetic nephropathy Plan . Orders: Orders AMB Hemoglobin A1c Today Z13.9 - Encounter for screening, unspecified MM screening mammo BI Today Z12.31 - Encounter for screening mammogram for malignant neoplasm of breast
--- OUTSIDE RECORDS SUMMARY | 2025-05-27 13:23 | XMS_ITS | Clinical Summary ---
Author Organization [facility] Facility Address [address] [place] [id number] Care Team Providers Care Hog Man Name Role Phone Alfredo Massey NP Primary Care Provider [phone] Allergies Active Allergy Reactions Criticality Noted Date [...] Cancer Screening: Sigmoidoscopy 2013 Influenza Vaccine (#1) 2025 Hepatitis B Vaccine Aged Out No longe r eligible based on patient's age to complete this topic Insurance [facility] ([id number]) [facility] ([id number]) Care Teams Hog Man Relationship Specialty Start Date End Date Alfredo Massey NP [address] [place] [address] PCP - General Nurse Practitioner 03/03/22
--- OUTSIDE RECORDS SUMMARY | 2025-05-27 13:23 | XMS_ITS | Patient Health Record ---
Author Organization [facility] Address [address] [place], [place] [id number] Care Team Providers Care Assembler [place] Name Role Phone NO, PCP Primary Care Provider Allergies Allergen (clinical drug ingredient) Drug/Non Drug [...] [facility] [address] [place] [id number] Nydia Schuster Self - patient is the insured Medical (General) History Medical History History ICD Code HTN Depression Asthma Astma exacerbation Lumbar back pain Xanthelasma Hot flashes due to menopause Carpal tunnel syndrome on both sides Other chronic pain anxiety
--- OUTSIDE RECORDS SUMMARY | 2025-05-27 13:23 | XMS_ITS | Patient Health Record ---
Author Organization [facility] [facility] [place] Address [address] [facility] [place] [address] Care Team Providers Care Software Recruiter Name Role Phone Alfredo Rodrigues Primary Care Provider Unav ailable Ayush Hyman Unavailable [phone] Allergies Allergen (clinical drug ingredient) Drug/Non Drug Allergy documented on EMR Reaction Allergy Type Onset Date Status ibuprofen Ibuprofen hives Drug Allergy Active Reason For Referral No Information Medications Medication SIG (Take, Route, Frequency, Duration) Notes Start Date End Date Status Senna 8.6 MG 2 tablets at bedtime as needed Orally Once a day Active Aspirin 81 MG 1 tablet Orally Once a day Active Lactulose 10 GM/15ML 15 ml Orally Once a day Active Omeprazole 20 MG 1 capsule Orally Onc e a day Active Atorvastatin Calcium 10 MG 1 tablet Oral ly Once a day Active Vitamin D 2000 UNIT 1 tablet Orally Once a day Active busPIRone HCl 15 MG 1 tablet Orally Twic e a day Active Xarelto 20 MG 1 tablet with food O rally Once a day Active Abilify 5 MG 1 tablet Orally Once a day Active Sertraline HCl 100 MG 1 tablet Orally On ce a day Active amLODIPine Besylate 10 MG 1 tablet Orall y Once a day Active Spironolactone 25 MG 1 tablet Orally Active Carvedilol 25 MG Orally Act jacob Lisinopril 40 MG 1 tablet Orally Once a day Active Flovent HFA 110 MCG/ACT 2 puff Inhalatio n Twice a day Active Hydrocortisone 2.5 % 1 application to af fected area Rectal Twice a day Active Butrans 20 MCG/HR 1 patch to skin Transdermal Active Zolpidem Tartrate 5 MG 1 tablet at bedti me Orally Once a day Active Docusate Sodium 100 MG 1 capsule as need ed Orally Once a day Active Zofran 4 MG 2 tablets Orally thr ee times a day Active Social History Tobacco Use: Social History Observation Description Date Details (start date - stop date) Never Smoker NA - NA Tobacco Use/Smoking Question Answer Notes Are you a: nonsmoker Additional Findings: Tobacco Non-User Current no n-smoker Alcohol Screen Question Answer Notes Did you have a drink containing alcohol in the p ast year? No Points 0 Interpretation Negative Tobacco use other than smoking: Question Answer Notes Are you an other tobacco user? No Plan Of Treatment No Information Insurance Providers Payer Name Payer Address Payer Phone Subscriber Number Group Number Insured Name Patient Relationship to Insured Coverage Start Date Coverage End Date [facility] Claims [address] [place] [id number] Remington swan Nydia Self - patient is the insured Medical (General) History Medical History History ICD Code Depression Anxiety Hypertension Sleep apnea asthma exacerbation Hyperlipidemia Impaired glucose tolerance Hiatal hernia auditory hallucinations Xanthelasma Bursitis of the shoulder benign neoplasm of skin of breast chronic low back pain calcaneal spur dyslipidemia bone spur, left foot lumbar back pain Menopause Carpal tunnel, bilateral pelvic pain other chronic pain degeneration of intervetebral disc of jaciel mbar region lumbar herniated disc hypertension paroxysmal atrial fibrillation constipation Venous insufficency, right lower extremi ty Venous insufficiency of left leg essential hypertension S/P hysterectomy ankle sprain, unspecified ligament Back,Hip,and Knee pain Cholesterol Gall bladder problems Neuropathy Surgical History Surgery Date(Month/Year) hysterectomy cholecystectomy cyst removal esophagagastroduodenoscopy with closed b iopsy Margarita Operation, fundoplication of stom ach gall bladder removal Hospitalization History Reason Date(Month/Year) [place] [facility] [place] palpitations April or May 2018
--- OUTSIDE RECORDS SUMMARY | 2025-05-27 13:23 | XMS_ITS | Clinical Summary ---
Author Organization [facility] Address [address] [place] [address] Care Team Providers Care Product Scientist Name Role Phone Unavailable Primary Care Provider [...] 2009 Fecal DNA 2009 Flexible Sigmoidoscopy 2009 Imm-Pneumococcal 50+ (1 of 1 - PCV) 2014 Imm-Zoster, Recombinant (1 of 2) 2014 Dental BW 12/23/2023 12/21/2022, 09/10/2022 Dental Examination 12/23/2023 12/21/2022, 09/10/2022 Dental Perio Charting 12/23/2023 12/21/2022 Dental Prophy 12/23/2023 12/21/2022 [id number] ( season) 2024 Alcohol and Drug Screen 11/21/2024 Imm-Influenza (Season Ended) 2025 Diabetes Screening 11/25/2025 11/25/2022 Dental FMX/Pano 09/12/2027 [...] Most Recently Relevant to Health Maintenance Insurance [facility]
== END 2025-05-27 13:30 | disposition home or self-care (01) ==
LOC: HO.HMCC 12:57
PROVIDERS: PCP Nurse Practitioner Family; Visit Provider Nurse Practitioner Family
DX: Z00.01 Encounter for general adult medical examination with abnormal findings (principal); E11.21 Type 2 diabetes mellitus with diabetic nephropathy

== ENCOUNTER → 2025-05-27 12:56 | Outpatient (BNVA) | payer OTHER, SELFPAY | PROVIDERS: PCP Nurse Practitioner Family; Visit Provider Nurse Practitioner Family | DX: Z00.01 Encounter for general adult medical examination with abnormal findings (principal); E11.21 Type 2 diabetes mellitus with diabetic nephropathy | CPT/HCPCS: 83036; 99396 ==

== ENCOUNTER 2025-07-01 14:09 | Outpatient (REF) | payer OTHER, SELFPAY ==
--- NOTE | ~2025-07-01 | MM_ITS ---
EXAMINATION: MM SCREENING DIGITAL BREAST TOMOSYNTHESIS, BILATERAL CLINICAL INFORMATION: Screening. Asymptomatic. COMPARISON: Comparison made to multiple prior, most recent May 03, 2024, and most remote January 24, 2020. TECHNIQUE: Digital breast tomosynthesis is performed in both the craniocaudal and mediolateral oblique views along with computer-aided detection (CAD). Synthesized 2D images are generated from the tomosynthesis. FINDINGS: BREAST COMPOSITION: There are scattered areas of fibroglandular density (ACR BI-RADS breast composition Category b). RIGHT BREAST: History of previous excisional biopsy. No significant masses, suspicious calcifications or other abnormalities are seen. LEFT BREAST: No significant masses, suspicious calcifications or other abnormalities are seen. MM/MM tomosynthesis screening BI IMPRESSION: BILATERAL BREASTS: Benign, no mammographic evidence of malignancy. Normal interval follow-up is recommended in 12 months. ASSESSMENT: BI-RADS 2 - Benign Findings RECOMMENDATION: Routine annual mammography screening. FOLLOW-UP: 1 year F/U This examination should not preclude the clinical evaluation of a suspicious palpable abnormality. This patient's information was entered into a reminder system with a target due date for their next mammogram. Electronically signed by: Jane Andrews MD 07/08/2025 01:35 PM EDT
--- OUTSIDE RECORDS SUMMARY | 2025-07-01 14:38 | XMS_ITS | Clinical Summary ---
Author Organization [facility] Facility Address [address] [place] [address] Care Team Providers Care Technician Helper Instrument Name Role Phone Alfredo Massey NP Primary Care Provider [phone] Allergies Active Allergy Reactions Criticality Noted Date [...] patient's age to complete this topic Insurance [facility] ([id number]) [facility] ([id number]) Care Teams Technician Helper Instrument Relationship Specialty Start Date End Date Alfredo Massey NP [address] [place] [address] PCP - General Nurse Practitioner 03/03/22
--- OUTSIDE RECORDS SUMMARY | 2025-07-01 14:38 | XMS_ITS | Patient Health Record ---
Author Organization [facility] [address] [facility] [place] Address [address] [facility] [place] [address] Care Team Providers Care Motor Mechanic Name Role Phone Alfredo Rodrigues Primary Care Provider Unav ailable Ayush Hyman Unavailable [phone] Allergies Allergen (clinical drug ingredient) Drug/Non Drug [...] Insured Coverage Start Date Coverage End Date [facility] Claims [address] [place] [id number] Remington swan Nydia Self - patient is [...] Hospitalization History Reason Date(Month/Year) hypertension childbirth 2012 [facility] [place] Heart palpitations April or May 2018
--- OUTSIDE RECORDS SUMMARY | 2025-07-01 14:38 | XMS_ITS | Clinical Summary ---
Author Organization [facility] Address [address] [place] [address] Care Team Providers Care Milieu Therapist Name Role Phone Unavailable Primary Care Provider [...] Charting 12/23/2023 12/21/2022 Dental Prophy 12/23/2023 12/21/2022 [id number] ( - season) 2024 Alcohol and Drug Screen 11/21/2024 Imm-Influenza (#1) 2025 Diabetes Screening 11/25/2025 11/25/2022 Dental FMX/Pano [...] Most Recently Relevant to Health Maintenance Insurance [facility]
--- OUTSIDE RECORDS SUMMARY | 2025-07-01 14:39 | XMS_ITS | Patient Health Record ---
Author Organization [facility] Address [address], [place] [id number] Care Team Providers Care Tub Wash Operator Name Role Phone NO, PCP Primary Care [...] [facility] [address] [place] [id number] Nydia Schuster Self - patient is the insured Medical (General) History Medical History History ICD Code HTN Depression Asthma Astma exacerbation Lumbar back pain Xanthelasma Hot flashes due to menopause Carpal tunnel syndrome on both sides Other chronic pain anxiety
== END 2025-07-01 14:10 | disposition home or self-care (01) ==
LOC: HO.MAMMO 14:09
PROVIDERS: PCP Nurse Practitioner Family; Visit Provider Nurse Practitioner Family
DX: Z12.31 Encounter for screening mammogram for malignant neoplasm of breast (principal)
CPT/HCPCS: 77063; 77067

== ENCOUNTER → 2025-07-01 15:00 | Outpatient (BNV) | payer OTHER, SELFPAY | PROVIDERS: PCP Nurse Practitioner Family; Visit Provider Radiology Body Imaging | DX: Z12.31 Encounter for screening mammogram for malignant neoplasm of breast (principal) | CPT/HCPCS: 77063; 77067 ==

== ENCOUNTER 2025-07-23 08:10 | Outpatient (AMB) | payer OTHER, SELFPAY ==
[2025-07-23 08:21] VITALS: BP 110/62; PULSE 79; TEMP 36.8; O2SAT 97; BMI 38.4
--- NOTE | 2025-07-23 08:21 | MHC.OFFWIV ---
Intake Vital Signs 07/23/25 08:21 Height 5 ft 2 in Weight 210 lb BMI 38.4 BP 110/62 Blood Pressure Location Rt brachial Position Sitting Pulse 79 Pulse Source Pulse Oximeter Temp 98.2 F Temp Source Oral Pulse Oximetry (%) 97 Oxygen Delivery Method Room Air Intake Visit Reasons: EP pain LT side of leg/hip Intake Note: pt presents with left low back pain radiating down hip and leg to her toes for 2 weeks Patient Tobacco Use Status: Never used Tobacco Allergies ibuprofen (IBUPROFEN) Allergy (Mild, Verified 07/23/25 08:25) RASH, hives Do you need a note to return to daycare/school/sports/work: No HPI HPI Comments History of Present Illness Details History - The patient is a 60-year-old female presenting with pain radiating from the left lower back down the leg. - The patient reports experiencing pain for approximately two weeks, described as a burning sensation extending from the lower back down the leg, and feels like a dog biting. - The pain is exacerbated by movement, bending, and standing, and is associated with a burning sensation. - The patient has a history of sciatica and has been previously prescribed gabapentin and tizanidine for management. - The patient reports difficulty sleeping on the affected side due to pain. - The patient experienced shortness of breath last night, although no chest pain was reported. - She has been taking Aleve with little relief. - She denies saddle anesthesia, incontinence, trauma, falls, numbness, or tingling. Physical Exam General: cooperative, healthy appearing and comfortable, patient oriented x3 Head: Normal to inspection, normocephalic/atraumatic Effort & Inspection: Normal respiratory effort and able to speak in complete sentences. Cardiac: RRR, no M/R/G noted. Normal S1 and S2. Respiratory: Clear to auscultation bilaterally. No w/r/r noted. Back/spine: No CVA tenderness bilaterally. Cervical, thoracic and lumbar spine normal to inspection. Cervical ROM normal, no midline spinous tenderness noted. Thoracic ROM normal, lumbar ROM normal. No midline vertebral spinous tenderness noted. No step offs noted. No TTP of the thoracic or lumbar paraspinous or paravertebral muscles. TTP of the SI joint on the left. DTR are 2+ on the lower extremities noted. Ambulates with a steady gait. Extremities: Straight leg raise test negative on right; Straight leg raise test positive on left; motor strength normal 5/5 bilaterally. Reports burning pain and sciatica. Neuro: Sensation intact. Patient was informed and verbally consented to the use of an ambient scribe for clinic note documentation during this visit. [facility] Medical History PAF (paroxysmal atrial fibrillation) Barretts esophagus Hx of flexible sigmoidoscopy Osteoarthritis of left hip Spondylosis without myelopathy or radiculopathy, 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 Sacroiliitis Asthma WENDY (obstructive sleep apnea) Morbid obesity Swelling of both lower extremities Afib Disc degeneration, lumbar Cervical pain (neck) Calcaneal spur Benign neoplasm breast skin Bursitis, shoulder Xanthelasma Auditory hallucinations Impaired glucose tolerance Hyperlipidemia Anxiety Depression Adenomatous polyp of colon Esophagitis Hypertensive urgency Palpitations HTN (hypertension) Dyspepsia GERD (gastroesophageal reflux disease) Surgical History Hx of colonoscopy H/O esophagogastroduodenoscopy (09/01/15) Status post Margarita fundoplication (10/27/12) History of removal of cyst Hx of cholecystectomy History of hysterectomy Family History Father CVD (cardiovascular disease) HTN (hypertension) Diabetes Mother HTN (hypertension) Diabetes CVD (cardiovascular disease) Brother Pacemaker Maternal Grandmother Throat cancer Brother No problems noted. Daughter Hx LEEP (loop electrosurgical excision procedure), cervix, Other Mental health disorder Substance use disorder Social History Household Members: None Housing: House Are you a primary health and social care teacher to a significant other at home: No Do you presently have visiting nurse or other home services: No Alcohol intake: never Patient Tobacco Use Status: Never used Tobacco e-Cigarette/Vaping Use: Never Used Second Hand Smoke Exposure: No Advance Directives Date on File: 03/16/21 service: No Current occupational status: disabled Sexual orientation: Straight/Heterosexual Gender identity: Female Cognitive needs: No Hearing needs: No Vision needs: No Review of Systems Const All systems reviewed & are unremarkable except as noted in HPI and below Physical Exam Vital Signs: Last Vital Signs Temp 98.2 F 07/23/25 08:21 Pulse 79 07/23/25 08:21 BP 110/62 07/23/25 08:21 Pulse Ox 97 07/23/25 08:21 Oxygen Delivery Method Room Air 07/23/25 08:21 BMI result Body Mass Index 38.4 Assessment & Plan Assessment & Plan (1) Back pain with sciatica: Code(s): M54.9 - Dorsalgia, unspecified; M54.30 - Sciatica, unspecified side Plan Most likely sciatica vs strain vs radiculopathy plan - Gabapentin and tizanidine were refilled for pain management. - Prednisone was prescribed to help reduce inflammation and alleviate symptoms. - The patient was advised to monitor symptoms and follow up if no improvement is noted, with potential referral to orthopedics or consideration of physical therapy if necessary. - tylenol or motrin as needed for pain - activities as tolerated - will refill her medications Medications: New prednisone 40 mg (2 x 20 mg) PO DAILY 10 tabs 0RF 5 days Refilled gabapentin 100 mg PO BEDTIME 30 caps 2RF 30 days tizanidine 4 mg PO TID PRN 270 tabs 8RF for pain Coding Level of Care Code Est Pt Level 4 (35228) Diagnoses Back pain with sciatica M54.9; M54.30
--- OUTSIDE RECORDS SUMMARY | 2025-07-23 08:39 | XMS_ITS | Encounter Summary ---
Author Organization [facility] Address [address] [facility] [address] [place] [address] Phone Care Team Providers Care Lead Material Handler Name Role Phone Alfredo Massey NP Primary Care Provider [phone] Reason for Visit * Reason Comments Med Refill Encounter Details Date Type Department Care Team (Late st Contact Info) Description 07/20/2025 Refill [facility] [address] [facility] [address] [place] [address] Johnson Sosa MD [address] [place] [facility] [address] [place] [address] Social History Tobacco Use Types Packs/Day Years Used Date Smoking Tobacco: Never Smokeless Tobacco: Never Alcohol Use Standard Drinks/Week Comments Not Currently 0 (1 standard drink = 0.6 oz pur e alcohol) Comments Unknown Sex and Gender Information Value Date Recorded Sex Assigned at Not on file Legal Sex Female 5:19 PM EST Gender Identity Not on file Sexual Orientation Not on file documented as of this encounter Plan of Treatment Not on file documented as of this encounter Visit Diagnoses Not on filedocumented in this encounter Care Teams Lead Material Handler Relationship Specialty Start Date End Date Alfredo Massey NP [address] [place] [address] PCP - General Nurse Practitioner 03/03/22 documented as of this encounter
--- OUTSIDE RECORDS SUMMARY | 2025-07-23 08:39 | XMS_ITS | Patient Health Record ---
Author Organization [facility] [place] Address [address] [facility] [place] [address] Care Team Providers Care Erp Technical Lead Name Role Phone Alfredo Rodrigues Primary Care Provider Unav ailable Ayush Hyman Unavailable [phone] Allergies Allergen (clinical drug ingredient) Drug/Non Drug [...] Insured Coverage Start Date Coverage End Date [facility] SCO Claims [address] [place] [phone] [id number] Remington swan Nydia Self - patient is [...] Hospitalization History Reason Date(Month/Year) hypertension childbirth 2012 [facility] [place] Heart palpitations April or May 2018
--- OUTSIDE RECORDS SUMMARY | 2025-07-23 08:39 | XMS_ITS | Clinical Summary ---
Author Organization [facility] Address [address] [place] [address] Care Team Providers Care Tax Evaluator Name Role Phone Unavailable Primary Care Provider [...] Charting 12/23/2023 12/21/2022 Dental Prophy 12/23/2023 12/21/2022 [id number] ( - season) 2024 Alcohol and Drug [...] Most Recently Relevant to Health Maintenance Insurance [facility] - [facility]
--- OUTSIDE RECORDS SUMMARY | 2025-07-23 08:39 | XMS_ITS | Clinical Summary ---
Author Organization [facility] Facility Address [address] [place] [address] Care Team Providers Care Network Relay Tester Name Role Phone Alfredo Massey NP Primary Care Provider [phone] Allergies Active Allergy Reactions Criticality Noted Date [...] Encounters Date Type Department Care Team Description 07/20/2025 Refill [facility] [address] [place] [address] Johnson Sosa MD from Last 3 Months [...] Phone Billing Address Personal/Family Self [address] ([id number]) * Guarantor: Landen Nydia Account Type Relation to Patient Date of Phone Billing Address Personal/Family Self 1965 [address] [phone] [facility] ([id number]) Care Teams Network Relay Tester Relationship Specialty Start Date End Date Alfredo Massey NP [address] [place] [address] PCP - General Nurse Practitioner 03/03/22
--- OUTSIDE RECORDS SUMMARY | 2025-07-23 08:39 | XMS_ITS | Patient Health Record ---
Author Organization [facility] Address [address] [place], [place] [id number] Care Team Providers Care Transactional Paralegal Name Role Phone NO, PCP Primary Care [...] [facility] [address] [place] [id number] Nydia Schuster Self - patient is the insured Medical (General) History Medical History History ICD Code HTN Depression Asthma Astma exacerbation Lumbar back pain Xanthelasma Hot flashes due to menopause Carpal tunnel syndrome on both sides Other chronic pain anxiety
== END 2025-07-23 09:19 | disposition home or self-care (01) ==
PROVIDERS: PCP Nurse Practitioner Family; Visit Provider Physician Assistant Medical
DX: M54.9 Dorsalgia, unspecified (principal); M54.30 Sciatica, unspecified side

== ENCOUNTER → 2025-07-23 08:10 | Outpatient (BNVA) | payer OTHER, SELFPAY | PROVIDERS: PCP Nurse Practitioner Family; Visit Provider Physician Assistant Medical | DX: M54.32 Sciatica, left side (principal); Z79.899 Other long term (current) drug therapy | CPT/HCPCS: 99212 ==

== ENCOUNTER → 2025-07-24 07:52 | Outpatient (REF) | payer OTHER, SELFPAY ==
--- NOTE | ~2025-07-24 | NM_ITS ---
EXAMINATION: IA RADIONUCLIDE SOLID FOOD GASTRIC EMPTYING 4-HOUR STUDY CLINICAL INFORMATION: R68.81 - Early satiety, evaluate for diabetic gastroparesis; COMPARISON: None TECHNIQUE: A standard meal consisting of 4 oz of Egg Beaters brand tagged with 0.98 microcuries Tc-99m Sulfur Colloid, 8 oz water and 2 slices of toast with jelly was administered orally to the patient. Images were obtained using a dual head gamma camera in the anterior and posterior projections over of the stomach immediately post ingestion and at hourly intervals up to 4 hours post ingestion. The anterior and posterior counts at each time interval were averaged using the geometric mean and expressed as percentage of the immediate post ingestion counts. FINDINGS: There is good visualization of activity in the stomach immediately post ingestion. As the study progresses, there is good clearance of activity from the stomach and visualization of progressively increasing small bowel activity. By the end of the study, there is almost no retention noted in the stomach. Retention in the stomach at each time interval was: 1 hour 15% (normal 37%-90%) 2 hours 6% (normal 30%-60%) 3 hours 1% 4 hours : Examination terminated at 3 hours due to near complete emptying at 3 hours IA/IA gastric emptying study IMPRESSION: Normal solid food gastric emptying study. For solid meal, rapid gastric emptying is less than 30% at 60 minutes. Delayed gastric emptying criteria is more than 60% remaining at 120 minutes or more than 10% at 240 minutes. The 4-hour value is the best discriminator of a normal or abnormal result). Gastric emptying study grading per JNMT Consensus Recommendations in 2008 (https://tech.snmjournals.org/content/36/1/44) Grade 1 (mild retention): 11-20% at 4h Grade 2 (moderate retention): 21-35% at 4h Grade 3 (severe retention): 36-50% at 4h Grade 4 (very severe retention): >50% retention at 4h Electronically signed by: Nikhil Lloyd MD 07/24/2025 11:49 AM EDT
--- OUTSIDE RECORDS SUMMARY | 2025-07-24 07:59 | XMS_ITS | Patient Health Record ---
Author Organization [facility] [place] Address [address] [facility] [place] [address] Care Team Providers Care Wad Printing Machine Operator Name Role Phone Alfredo Rodrigues Primary Care Provider Unav ailable Ayush Hyman Unavailable [phone] Allergies Allergen (clinical drug ingredient) Drug/Non Drug [...] Insured Coverage Start Date Coverage End Date [facility] SCO Claims [address] [place] [address] [id number] Remington swan Nydia Self - patient is [...] Hospitalization History Reason Date(Month/Year) hypertension childbirth [place] [facility] [place] palpitations April or May 2018
--- OUTSIDE RECORDS SUMMARY | 2025-07-24 07:59 | XMS_ITS | Clinical Summary ---
Author Organization [facility] Facility Address [address] [place] [address] Care Team Providers Care Candy Dipper Name Role Phone Alfredo Massey NP Primary Care Provider [phone] Allergies Active Allergy Reactions Criticality Noted Date [...] [place] [address] [place] [address] Johnson Sosa MD from Last 3 Months [...] Phone Billing Address Personal/Family Self [address] ([id number]) * Guarantor: Landen Nydia Account Type Relation to Patient Date of Phone Billing Address Personal/Family Self 1965 [address] [place] [phone] [facility] ([id number]) Care Teams Candy Dipper Relationship Specialty Start Date End Date Alfredo Massey NP [address] [place] [address] PCP - General Nurse Practitioner 03/03/22
--- OUTSIDE RECORDS SUMMARY | 2025-07-24 07:59 | XMS_ITS | Patient Health Record ---
Author Organization [facility] Address [address] [place] [address] Care Team Providers Care Realty Specialist Name Role Phone NO, PCP Primary Care Provider [phone] Allergies Allergen (clinical drug ingredient) Drug/Non Drug [...] [facility] [address] [place] [id number] Nydia Schuster Self - patient is the insured Medical (General) History Medical History History ICD Code HTN Depression Asthma Astma exacerbation Lumbar back pain Xanthelasma Hot flashes due to menopause Carpal tunnel syndrome on both sides Other chronic pain anxiety
--- OUTSIDE RECORDS SUMMARY | 2025-07-24 07:59 | XMS_ITS | Clinical Summary ---
Author Organization [facility] Address [address] [place] [address] Care Team Providers Care Project Facilitator Name Role Phone Unavailable Primary Care Provider [...] Charting 12/23/2023 12/21/2022 Dental Prophy 12/23/2023 12/21/2022 [id number] ( - season) 2024 Alcohol and Drug [...] Most Recently Relevant to Health Maintenance Insurance [facility]
--- OUTSIDE RECORDS SUMMARY | 2025-07-24 07:59 | XMS_ITS | Encounter Summary ---
Author Organization [facility] Address [address] [facility] [address] [place] [address] Phone Care Team Providers Care Program Director Group Work Name Role Phone Alfredo Massey NP Primary Care Provider [phone] Reason for Visit * Reason Comments Med Refill Encounter Details Date Type Department Care Team (Late st Contact Info) Description 07/20/2025 Refill [facility] [address] [facility] [address] [place] [address] Johnson Sosa MD [address] [facility] [address] [place] [address] Social History Tobacco Use Types [...] on filedocumented in this encounter Care Teams Program Director Group Work Relationship Specialty Start Date End Date Alfredo Massey NP [address] [place] [address] PCP - General Nurse Practitioner 03/03/22 documented as of this encounter
== END ==
LOC: HO.NUCMED 07:52
PROVIDERS: PCP Nurse Practitioner Family; Visit Provider Internal Medicine Gastroenterology
DX: R68.81 Early satiety (principal)
CPT/HCPCS: 78264; A9541

== ENCOUNTER → 2025-07-24 07:56 | Outpatient (BNV) | payer OTHER, SELFPAY | PROVIDERS: PCP Nurse Practitioner Family; Visit Provider Radiology Diagnostic Radiology | DX: R68.81 Early satiety (principal) | CPT/HCPCS: 78264 ==

== ENCOUNTER 2025-07-31 11:00 | Outpatient (AMB) | payer OTHER, SELFPAY ==
[2025-07-31 11:35] VITALS: BP 150/70; PULSE 70; O2SAT 97; BMI 39.0
--- NOTE | 2025-07-31 11:35 | A.OFFVIS_ITS ---
Vital Signs 07/31/25 11:35 Height 5 ft 2 in Weight 213 lb BMI 39.0 BP 150/70 H Blood Pressure Location Rt brachial Position Sitting Pulse 70 Pulse Source Pulse Oximeter Pulse Oximetry (%) 97 Oxygen Delivery Method Room Air Intake Visit Reasons: Follow Up Intake Note: Patient presents for follow up WENDY. Pond Worker Required: No Accompanied by: Self / Same As Patient Allergies ibuprofen (IBUPROFEN) Allergy (Mild, Verified 07/31/25 11:35) RASH, hives HPI Comments Details: 59 y/o female patient with hx of asthma and Afib comes for follow up of sleep apnea. Baseline PSG sleep study and titration study.: 07/27/2023 In-lab PSG sleep study: AHI was 7/hr, REM AHI was 30/hr and oxygen marge was 83%. * Results c/w a mild degree of sleep apnea with increased severity in REM sleep. 10/11/2023 PAP titration study, pt's breathing and oxygenation stabilized with CPAP at [id number]. The patient reports she is not using her CPAP regularly, and PAP compliance report shows 1 day of use in the last 90 days. She states the mask is just bothersome. When she does use CPAP, it does help her daytime hypersomnia and sleep. She current he sleeps in a flat position. Her BP this morning has a bit elevated 150/70, however she states that she woke up on the later side and just recently took her morning blood pressure medication. She has a home BP cuff. She does continue to have mid back muscle spasms, however she did start ma gnesium which has been helpful. Continues to use Tizanidine 4 mg q.h.s.. Notes that the tizanidine makes her sleepy. [place] [address] Phone: Email: [email or web address] Compliance Report Usage 03/03/2025 - 05/31/2025 Usage days: 1 day out of 90 days (1%) Usage greater than 4 hours: 1% Average usage (days used): 4 hours 1 minute AirSense 10 AutoSet Serial number [id number] Mode CPAP Set pressure 12 cmH2O EPR Fulltime EPR level 2 Therapy Leaks: * Median leaks: 33.6 L/min * Maximum leaks: 93.6 L/min Residual events per hour: AHI 0.9 per hour PFSH Medical History PAF (paroxysmal atrial fibrillation) Barretts esophagus Hx of flexible sigmoidoscopy Osteoarthritis of left hip Spondylosis without myelopathy or radiculopathy, 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 Sacroiliitis Asthma WENDY (obstructive sleep apnea) Morbid obesity Swelling of both lower extremities Afib Disc degeneration, lumbar Cervical pain (neck) Calcaneal spur Benign neoplasm breast skin Bursitis, shoulder Xanthelasma Auditory hallucinations Impaired glucose tolerance Hyperlipidemia Anxiety Depression Adenomatous polyp of colon Esophagitis Hypertensive urgency Palpitations HTN (hypertension) Dyspepsia GERD (gastroesophageal reflux disease) Surgical History Hx of colonoscopy H/O esophagogastroduodenoscopy (09/01/15) Status post Margarita fundoplication (10/27/12) History of removal of cyst Hx of cholecystectomy History of hysterectomy Family History Father CVD (cardiovascular disease) HTN (hypertension) Diabetes Mother HTN (hypertension) Diabetes CVD (cardiovascular disease) Brother Pacemaker Maternal Grandmother Throat cancer Brother No problems noted. Daughter Hx LEEP (loop electrosurgical excision procedure), cervix, Other Mental health disorder Substance use disorder Social History Household Members: None Housing: House Are you a primary neonatal critical care nurse to a significant other at home: No Do you presently have visiting nurse or other home services: No Alcohol intake: never Patient Tobacco Use Status: Never used Tobacco e-Cigarette/Vaping Use: Never Used Second Hand Smoke Exposure: No Advance Directives Date on File: 03/16/21 service: No Current occupational status: disabled Sexual orientation: Straight/Heterosexual Gender identity: Female Cognitive needs: No Hearing needs: No Vision needs: No Physical Exam Vital Signs: Last Vital Signs Pulse 70 07/31/25 11:35 BP 150/70 H 07/31/25 11:35 Pulse Ox 97 07/31/25 11:35 Oxygen Delivery Method Room Air 07/31/25 11:35 BMI result Body Mass Index 39.0 Const General: cooperative and no acute distress Orientation/consciousness: patient oriented x3 Resp Effort & Inspection: normal respiratory effort and able to speak in complete sentences Auscultation: clear to auscultation bilaterally Back/Spine/Pelvis Other: no palpable right mid-back tenderness. Neuro General: patient oriented x3 and moves all extremities Cranial nerves: Yes CN's II-XII intact bilaterally Cognition (Neuro): normal cognition Gait exam (Neuro): Assistive device used (Cane) Psych Appearance: grossly normal Mental Status: mental status grossly normal Speech and movement: Normal speech and movement present Affect: normal affect Attitude: cooperative Assessment & Plan Assessment & Plan (1) Sleep apnea: Comment: Mild degree of sleep apnea with increased severity in REM. The AHI was 7/hr, REM AHI was 30/hr and oxygen marge was 83% Code(s): G47.30 - Sleep apnea, unspecified Category: Medical Qualifiers: Sleep apnea type: obstructive Qualified Code(s): G47.33 - Obstructive sleep apnea (adult) (pediatric) (2) Muscle spasm: Code(s): M62.838 - Other muscle spasm Category: Medical Plan Encourage patient to increase use of CPAP [id number] with EPR 3, as pt has had good clinical effect from use w/ good reduction in AHI. * PAP therapy goal: nightly > 4 hrs. * Patient may benefit from trying a sleep apnea wedge pillow to help improve CPAP tolerance. Change and clean PAP supplies routinely. For right mid-back muscle spasm- * Continue Mag Ox 400mg qhs. * Continue Tizanidine 4mg qhs prn Pt to follow-up in 6 months or sooner prn. Coding Level of Care Code Est Pt Level 4 (25350) Diagnoses Obstructive sleep apnea syndrome G47.33 Sleep apnea type: obstructive Muscle spasm M62.838
--- OUTSIDE RECORDS SUMMARY | 2025-07-31 14:01 | XMS_ITS | Encounter Summary ---
Author Organization [facility] Address [address] [facility] [address] [place] [address] Phone Care Team Providers Care Loan Funder Name Role Phone Alfredo Massey NP Primary Care Provider [phone] Reason for Visit * Reason Comments Med Refill Encounter Details Date Type Department Care Team (Late st Contact Info) Description 07/20/2025 Refill [facility] [address] [facility] [address] [place] [address] Johnson Sosa MD [address] [facility] [address] [place] [address] Social History Tobacco Use Types [...] on filedocumented in this encounter Care Teams Loan Funder Relationship Specialty Start Date End Date Alfredo Massey NP [address] [place] [address] PCP - General Nurse Practitioner 03/03/22 documented as of this encounter
--- OUTSIDE RECORDS SUMMARY | 2025-07-31 14:01 | XMS_ITS | Clinical Summary ---
Author Organization [facility] Facility Address [address] [place] [address] Care Team Providers Care Generation Mechanic Helper Name Role Phone Alfredo Massey NP Primary Care Provider [phone] Allergies Active Allergy Reactions Criticality Noted Date [...] Of [place] [address] [place] [address] Johnson Sosa MD from Last 3 Months [...] Phone Billing Address Personal/Family Self 1965 [address] ([id number]) * Guarantor: Landen Nydia Account Type Relation to Patient Date of Phone Billing Address Personal/Family Self 1965 [phone] [facility] ([id number]) Care Teams Generation Mechanic Helper Relationship Specialty Start Date End Date Alfredo Massey NP [address] [place] [address] PCP - General Nurse Practitioner 03/03/22
--- OUTSIDE RECORDS SUMMARY | 2025-07-31 14:01 | XMS_ITS | Patient Health Record ---
Author Organization [facility] [place] Address [address] [facility] [place] [address] Care Team Providers Care Mobility Manager Name Role Phone Alfredo Rodrigues Primary Care Provider Unav ailable Ayush Hyman Unavailable [phone] Allergies Allergen (clinical drug ingredient) Drug/Non Drug [...] [facility] SCO Claims [address] [place] [id number] Remington swan Nydia Self - patient is [...] Hospitalization History Reason Date(Month/Year) hypertension childbirth 2012 [facility] [place] Heart palpitations April or May 2018
--- OUTSIDE RECORDS SUMMARY | 2025-07-31 14:01 | XMS_ITS | Clinical Summary ---
Author Organization [facility] Address [address] [place] [address] Care Team Providers Care Registration Scheduling Specialist Name Role Phone Unavailable Primary Care [...] Charting 12/23/2023 12/21/2022 Dental Prophy 12/23/2023 12/21/2022 Alcohol and Drug Screen 11/21/2024 [id number] ( - season) 2025 Imm-Influenza (#1) 2025 Diabetes Screening 11/25/2025 11/25/2022 [...] Recently Relevant to Health Maintenance Insurance [facility]
--- OUTSIDE RECORDS SUMMARY | 2025-07-31 14:02 | XMS_ITS | Patient Health Record ---
Author Organization [facility] Address [address] [place] [address] Care Team Providers Care Sr. Pricing Analyst Name Role Phone NO, PCP Primary Care [...] [facility] [address] [place] [address] [phone] Nydia Schuster Self - patient is the insured Medical (General) History Medical History History ICD Code HTN Depression Asthma Astma exacerbation Lumbar back pain Xanthelasma Hot flashes due to menopause Carpal tunnel syndrome on both sides Other chronic pain anxiety
== END 2025-07-31 12:04 | disposition home or self-care (01) ==
LOC: HO.HSMS 11:01
PROVIDERS: PCP Nurse Practitioner Family; Visit Provider Nurse Practitioner Family
DX: G47.33 Obstructive sleep apnea (adult) (pediatric) (principal); M62.838 Other muscle spasm
CPT/HCPCS: 99214

== ENCOUNTER → 2025-07-31 11:00 | Outpatient (BNVA) | payer OTHER, SELFPAY | PROVIDERS: PCP Nurse Practitioner Family; Visit Provider Nurse Practitioner Family | DX: G47.33 Obstructive sleep apnea (adult) (pediatric) (principal); M62.838 Other muscle spasm | CPT/HCPCS: 99212 ==

== ENCOUNTER 2025-08-09 07:28 | Outpatient (AMB) | payer OTHER, SELFPAY ==
--- OUTSIDE RECORDS SUMMARY | 2025-08-09 07:31 | XMS_ITS | Encounter Summary ---
Author Organization [facility] Address [address] [facility] [address] [place] [address] Phone Care Team Providers Care Deburr Technician Name Role Phone Alfredo Massey NP Primary Care Provider [phone] Reason for Visit * Reason Comments Med Refill Encounter Details Date Type Department Care Team (Late st Contact Info) Description 07/20/2025 Refill [facility] [address] [facility] [address] [place] [address] Johnson Sosa MD [address] [facility] [address] [place] [address] Social History Tobacco Use Types [...] on filedocumented in this encounter Care Teams Deburr Technician Relationship Specialty Start Date End Date Alfredo Massey NP [address] [place] [address] PCP - General Nurse Practitioner 03/03/22 documented as of this encounter
--- OUTSIDE RECORDS SUMMARY | 2025-08-09 07:31 | XMS_ITS | Clinical Summary ---
Author Organization [facility] Address [address] [place] [address] Care Team Providers Care Cuprous Chloride Operator Name Role Phone Unavailable Primary Care [...] 12/23/2023 12/21/2022 Alcohol and Drug Screen 11/21/2024 [id number] ( - season) 2025 Imm-Influenza (#1) 2025 [...] Relevant to Health Maintenance Insurance [facility]
--- OUTSIDE RECORDS SUMMARY | 2025-08-09 07:32 | XMS_ITS | Clinical Summary ---
Author Organization [facility] Address [address] [place] [address] Care Team Providers Care Rfid Technician Name Role Phone Alfredo Massey NP Primary Care Provider [phone] Allergies Active Allergy Reactions Criticality Noted Date [...] [place] [address] [place] [address] Johnson Sosa MD from Last 3 Months [...] Billing Address Personal/Family Self [address] ([id number]) * Guarantor: Landen Nydia Account Type Relation to Patient Date of Phone Billing Address Personal/Family Self 1965 [address] [id number] [facility] ([id number]) Care Teams Rfid Technician Relationship Specialty Start Date End Date Alfredo Massey NP [address] [place] [address] PCP - General Nurse Practitioner 03/03/22
--- NOTE | 2025-08-09 07:41 | A.OFFVIS_ITS ---
Vital Signs 08/09/25 07:43 Height 5 ft 2 in Weight 212 lb BMI 38.8 BP 131/65 Blood Pressure Location Lt brachial Position Sitting Pulse 76 Intake Visit Reasons: Test Results Intake Note: Patient follow up for Adenomatous polyp of colon and lab/GES results Patient denies any GI issues for today visit. 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 Accompanied by: Self / Same As Patient Allergies ibuprofen (IBUPROFEN) Allergy (Mild, Verified 07/31/25 11:35) RASH, hives Medication List - Last Reconciled 08/09/25 by Mara Burger MD acetaminophen ER (Tylenol 8 Hour) 650 mg PO Q12H PRN albuterol sulfate 5 mg inhalation Q4H PRN albuterol sulfate 90 mcg/actuation 2 puffs inhalation Q20M PRN amlodipine 10 mg PO DAILY 90 days aripiprazole 5 mg PO DAILY atorvastatin 20 mg PO DAILY blood pressure kit-extra large As directed blood sugar diagnostic (Cyber-Rainuch Ultra Test strips) Use to check blood sugar twice daily: fasting blood sugar and a random blood sugar blood-glucose meter (Cyber-Rainuch Ultra2 Meter) Use to check blood sugar twice daily: fasting blood sugar and a random blood sugar buspirone mg PO carvedilol 25 mg PO BID cholecalciferol (vitamin D3) 50 mcg PO DAILY clonidine HCl 0.1 mg PO BID 30 days diclofenac sodium 1% (Arthritis Pain (diclofenac)) 4 grams topical QID 30 days dicyclomine 20 mg PO BID PRN 90 days docusate sodium 100 mg PO BEDTIME empagliflozin 25 mg PO DAILY 90 days flash glucose scanning reader (IsogenicaStyle Susu 2 [place]) As directed flash glucose sensor (FreeStyle Susu 2 Sensor kit) test blood sugar 4 times per day fluticasone propionate 110 mcg/actuation 1 puff inhalation BID 30 days gabapentin 100 mg PO BEDTIME 30 days humidifiers As directed hydrochlorothiazide 25 mg PO DAILY 30 days hydroxyzine HCl 10 mg PO TID PRN incontinence pad, liner, disp use daily for incont ketoconazole 2% 1 appl topical DAILY lancets Use to check blood sugar twice daily: fasting blood sugar and a random blood sugar magnesium oxide 400 mg PO BEDTIME 30 days melatonin 3 mg PO QPM naloxone 4 mg/actuation (Narcan) 4 mg intranasal Q2M PRN omeprazole 20 mg PO BID prednisone 40 mg (2 x 20 mg) PO DAILY 5 days rivaroxaban (Xarelto) 20 mg PO DAILY sennosides-docusate sodium 8.6-50 mg (Senna Plus) 2 tab-caps (2 x 8.6-50 mg) PO BEDTIME 60 days sertraline 100 mg PO DAILY spironolactone 25 mg PO BID tizanidine 4 mg PO TID PRN tramadol 50 mg PO BEDTIME PRN 10 days zolpidem 5 mg PO BEDTIME PRN HPI HPI Test Results: Details: GI CLINIC VISIT FOR THIS 60-YEAR-OLD [place]ALLISIAN-SPEAKING FEMALE FOR RECTAL BLEEDING, COLON POLYPS AND MALAVE'S ESOPHAGUS. PATIENT IS ON XARELTO FOR PAROXYSMAL ATRIAL FIBRILLATION AND IS FOLLOWED BY DR. 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 Abdominal ultrasound results were reviewed. Intermittent diarrhea and constipation - has normal BMs on most days. Denies abdominal pain or rectal bleeding. Continues to have early satiety - has to wait 2-3 hrs after meals before she can drink water or juice. Can have vomiting/regurgitation if she drinks fluids with meals. Intentional wt loss from 225 to 212 lbs. PAST VISITS: EGD and colon results reviewed with the patient. Advised repeat EGD and Colon in 3 years Denies any GI problems Patient feel she is not digesting her food, abd hernia pain, and constipation on and off. Had dinner at 6:30 pm yesterday (Had broccoli, aspragus and steak) and feels like she ate today BM can vary between constipation and soft BM Sometimes she has to strain to have a BM. Notes intermittent lower cramps lasting for 5 minutes (usually twice a day) Denies rectal bleeding EGD results reviewed. Feels good and denies recent black stools Intentional wt loss of 50 lbs Nausea is better - denies nausea, abd pain or diarrhea. Weight and appetite has been stable. Accompanied by her daughter (works as an MA in wt management at [employer] who interpreted for the pt Sometimes resolves after eating and sometimes persists. Notes heartburn mostly during the day. Has dinner at 5 pm and goes to bed at midnight - sometimes has a late night snack. Denies dysphagia. Abdominal pain is better. Has post prandial diarrhea since her GB surgery. Sometimes notes stinging in the rectum and there can be clear red blood on the TP. EGD and Colonoscopy and bx results were reviewed ? ? ? Denies recurrent abdominal pain. ? ? ? Patient notes improvement in dysphagia since esophageal balloon dilation ? ? ? Constipation has improved since she had her colonoscopy ?Complains of constant blanca-umblical abd pain for the past 3 days. ? ? ? Never had this pain in the past. ? ? ? Pain is 6/10 in intensity and is burning in character. ? ? ? Complains of nausea and has not been eating. ?? ? Vomited yesterday. ?? ? Denies fever or chills or any change in bowel habits.. ?? ? Took pork chops and wallisian fries 10 min before the pain started. ? ? ? Tried peptobismol and it did not help the pain. ? Feeling better, diagnosed with COVID infection last month and has recovered. ? Fever and body aches have cleared up ? Denies being constipated or having ongoing rectal bleeding. ? ? ? Having a lot of heartburn -? advised to increase omeprazole to 20 mg twice daily. ? Notes improvement in constipation - BM 1-2 times a day ? Notes some stinging when she uses the bathroom.. ? Denies blanca-anal pain/discomfort. Has not been using any topical agent for hemorrhoids. ? Denies ongoing diarrhea. ? Post prandial fullness after taking 5-6 bites has improved ? Takes 1-2 meals a day depending on her appetite. ? Has gained weight since the [facility] ?LABS [facility]:?12/14/19 NORMAL CHEM PANEL AND LFTS EXCEPT MILD INCREASE IN ALK P OF 131 ? 10/09 STOOL FOR H PYLORI ANTIGEN WAS NEGATIVE. ?IMAGING STUDIES: 01/01/21 ABDOMINAL US WAS NORMAL: ? LIVER: Normal. The liver is normal in size. The liver contour is normal. Parenchymal echogenicity is normal. No focal hepatic lesion. There is no intrahepatic biliary duct dilatation seen. GALLBLADDER: Surgically absent. COMMON BILE DUCT: Normal in caliber measuring 0.2 cm in diameter. 01/10/20 GASTRIC EMPTYING STUDY SHOWED:? Retention in the stomach at each time interval was: ? 1 hour 59% (normal 37%-90%) ? 2 hours 6% (normal 30%-60%) ? 3 hours 5% ? 4 hours (Not Obtained) (normal 0%-10%) ? IMPRESSION: ? Normal solid food gastric emptying study. ? 08/[address] SCAN SHOWED: ? No evidence for acute abdominal or pelvic inflammatory or infectious processes. ? Small hiatal hernia. ?ENDOSCOPIC STUDIES; 01/26/23 EGD WAS PERFORMED BY DR CALDWELL FOR EVALUATION OF BLACK STOOLS: EGD Findings:? * Esophagus:? Severe esophagitis noted at the GEJ at 34 cm. One ulcer with small clot was seen at 6 o clock position. The ulcer started oozing after the clot was flushed off. A resolution 360 Endoclip was placed for hemostasis. The Z line was at 34 cm. Hiatal hernia was noted with diaphragmatic pinch at 36 cm. * Stomach: Scattered erosions and heme were noted mostly in the body and antrum. Random gastric biopsies were taken to rule out H Pylori infection. * Duodenum: ? A focal area with villous effacement and erythema was noted in the 2nd portion of the duodenum.? Cold forceps biopsies were taken.? Remaining duodenum normal.?EGD Impressions:? * Severe esophagitis with ulcer (endoclip) * Gastritis (biopsy) * Normal duodenum (biopsy)??Recommendations:?? * Follow biopsy results. Our office will call or send a letter with results within 7-10 days. * ?continue omeprazole 20 mg b.i.d. for at least 8 weeks and then decrease to 20 mg per day.? * Repeat EGD will be scheduled in 8-10 weeks to assess for healing of esophagitis. * Resume anticoagulation tomorrow. * If H pylori +, patient will be prescribed eradication therapy followed by test of cure. * Avoid NSAIDs.02/13/21 EGD AND COLONOSCOPY SHOWED:? ESOPHAGUS: Focal esophagitis at GE junction with 1 cms tongue of Malave's - biopsied. Balloon dilation was performed with 19 and 20 mm CRE balloon x 60 seconds at each level. STOMACH: Gastritis and intact fundal wrap on retroflexed exam Colonoscopy Findings:? No polyps were detected. Moderate diverticulosis seen in the left colon Moderate hemorrhoids on retroflexed exam. Plan: Repeat Colonoscopy interval based on path results - in 3 years due to fair prep. Above findings were reviewed with the patient and GERD and diverticulosis handouts were given in the discharge area BIOPSIES SHOWED: A.? Small bowel, biopsy:? Duodenal mucosa within normal limits. B.? Stomach, antrum, biopsy:? Antral-type mucosa with mild chronic inactive inflammation; no Helicobacter organisms seen. C.? Esophagus, biopsy: - Malave esophagus with background moderate chronic active inflammation. - No dysplasia seen. - Chronic esophagitis. 11/22/19 EGD AND FLEXIBLE SIGMOIDOSCOPY SHOWED:? Endoscopy Findings: ? LARYNX: Normal ? ESOPHAGUS: Small hiatal hernia, minimal esophagitis and possible Malave's. ? STOMACH: Gastritis ? DUODENUM: Normal ? Flexible sigmoidoscopy Findings: ? One polyp removed ? Moderate diverticulosis seen in the sigmoid colon ? Moderate hemorrhoids on retroflexed exam - likely source of rectal bleeding. ? Plan: ? Await pathology results ? Patient has an appointment on 11/29/2019 in the GI Clinic with Mara Burger M.D. ? Pt to schedule a Colonoscopy interval based on path results - in 1-2 years if ? polyps are adenomatous and 10 years if polyps are hyperplastic. ? Above findings were reviewed with the patient. ? BIOPSIES SHOWED: ? A. Small bowel, biopsy: Small bowel mucosa with no significant histopathology; ? no villous abnormality identified; no increase in intraepithelial lymphocytes. ? B. Stomach, biopsy: Gastric mucosa with mild chronic, inactive gastritis; ? negative for Helicobacter pylori organisms; negative for intestinal metaplasia; negative for ? dysplasia. ? C. Esophagus, distal, biopsy: Esophagogastric junctional mucosa with moderate ? chronic inflammation and intestinal metaplasia (see Comment); negative for dysplasia; ? squamouS epithelium with reactive features suggestive of reflux disease. ? D. Colon, random, biopsy: Colonic mucosa within normal limits; no evidence of microscopic colitis. ? E. Colon, sigmoid polyp, polypectomy: Tubular adenoma. ? Comment: The findings are consistent with Malave's esophagus in the appropriate clinical/endoscopic setting. ? LETTER SENT ADVISING COLONOSCOPY IN 1 year [facility] Medical History (Updated 08/09/25 @ 07:46 by Mara Burger MD) GERD (gastroesophageal reflux disease) PAF (paroxysmal atrial fibrillation) Barretts esophagus Hx of flexible sigmoidoscopy Osteoarthritis of left hip Spondylosis without myelopathy or radiculopathy, 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 Sacroiliitis Asthma WENDY (obstructive sleep apnea) Morbid obesity Swelling of both lower extremities Afib Disc degeneration, lumbar Cervical pain (neck) Calcaneal spur Benign neoplasm breast skin Bursitis, shoulder Xanthelasma Auditory hallucinations Impaired glucose tolerance Hyperlipidemia Anxiety Depression Adenomatous polyp of colon Esophagitis Hypertensive urgency Palpitations HTN (hypertension) Dyspepsia GERD (gastroesophageal reflux disease) Surgical History Hx of colonoscopy H/O esophagogastroduodenoscopy (09/01/15) Status post Margarita fundoplication (10/27/12) History of removal of cyst Hx of cholecystectomy History of hysterectomy Family History Father CVD (cardiovascular disease) HTN (hypertension) Diabetes Mother HTN (hypertension) Diabetes CVD (cardiovascular disease) Brother Pacemaker Maternal Grandmother Throat cancer Brother No problems noted. Daughter Hx LEEP (loop electrosurgical excision procedure), cervix, Other Mental health disorder Substance use disorder Social History Household Members: None Housing: House Are you a primary chronic care nurse to a significant other at home: No Do you presently have visiting nurse or other home services: No Alcohol intake: never Patient Tobacco Use Status: Never used Tobacco e-Cigarette/Vaping Use: Never Used Second Hand Smoke Exposure: No Advance Directives Date on File: 03/16/21 service: No Current occupational status: disabled Sexual orientation: Straight/Heterosexual Gender identity: Female Cognitive needs: No Hearing needs: No Vision needs: No Review of Systems Const All systems reviewed & are unremarkable except as noted in HPI and below Physical Exam Vital Signs: Last Vital Signs Pulse 76 08/09/25 07:43 BP 131/65 08/09/25 07:43 BMI result Body Mass Index 38.8 Const General: healthy appearing and no acute distress Nutritional Appearance: obese Orientation/consciousness: patient oriented x3 Limitations: ambulation with cane HEENT Head: Yes normal to inspection Ears: hearing grossly normal bilaterally Eyes Sclerae: sclerae normal Pupils: Equal, round and reactive pupils present Neck Neck: Yes normal visual inspection Chest Chest palpation & inspection: normal inspection of the chest Resp Effort & Inspection: normal respiratory effort Auscultation: clear to auscultation bilaterally Cardio Palpation: normal PMI Rate: regular rate Rhythm: regular rhythm Heart sounds: S1 normal heart sound present, S2 normal heart sound present and no murmurs GI Palpation (GI): Soft to palpation, nontender and No hepatosplenomegaly present Auscultation: normal bowel sounds Rectal Exam - Female: deferred Skin General skin exam: no rashes or lesions noted Neuro General: patient oriented x3, gait normal and moves all extremities Cranial nerves: Yes Equal, round and reactive pupils present Psych Appearance: grossly normal Mental Status: mental status grossly normal Assessment & Plan Assessment & Plan (1) Adenomatous polyp of colon: Code(s): D12.6 - Benign neoplasm of colon, unspecified Category: Medical (2) GERD (gastroesophageal reflux disease): Code(s): K21.9 - Gastro-esophageal reflux disease without esophagitis Category: Medical (3) Chronic constipation: Code(s): K59.09 - Other constipation Category: Medical (4) Hemorrhoids, internal, with bleeding: Comment: start psyllium and HC cream Code(s): K64.8 - Other hemorrhoids Category: Medical (5) Elevated liver enzymes: Code(s): R74.8 - Abnormal levels of other serum enzymes Category: Medical (6) Malave's esophagus without dysplasia: Comment: Repeat EGD in 3 yrs (due 01/2024) Code(s): K22.70 - Malave's esophagus without dysplasia Category: Medical Plan 60 year old Niuean-speaking female with depression, anxiety, hypertension, sleep apnea, asthma, hyperlipidemia, impaired glucose tolerance, GERD with hiatal hernia, auditory hallucinations, xanthelasma, bursitis of shoulder, benign neoplasm of skin and breast, chronic low back pain, calcaneal spur, bile salt induced diarrhea followed in GI for GERD, chronic constipation, history of colon polyps and hx of rectal bleeding - presumably from perianal skin lesions per patient. Patient complained of poor appetite and weight loss and reported a past history of peptic ulcer disease.? Stool test for H pylori antigen was negative PATIENT IS STATUS POST MARGARITA FUNDOPLICATION 2011. 11/08 evaluation with upper endoscopy showed a small hiatal hernia, minimal esophageal and gastritis. Same-day flexible sigmoidoscopy showed moderate sigmoid diverticulosis and in ternal hemorrhoids and a small tubular adenoma was removed. ?Esophageal biopsies showed presence of Malave's metaplasia.? Patient complains of symptoms of heartburn and was advised to increase omeprazole to 20 mg twice daily. Abdominal ultrasound and a gastric emptying study were normal. Symptoms are likely related to constipation and patient was advised to take MiraLax once daily with improvement in her symptoms Patient complains of periumbilical abdominal pain for the past 3 days associated with nausea and vomiting - now resolved ENDOSCOPIC STUDIES: 03/28/23 EGD SHOWED: ESOPHAGUS: Esophagitis seen on last EGD has healed. GE junction with 1 cms tongue of Malave's - biopsied. STOMACH: Mild gastritis Plan: Await pathology results BIOPSIES SHOWED: Gastroesophageal junction, biopsy: Squamocolumnar mucosa with mild inflammation and intestinal metaplasia; negative for dysplasia (see comment) Comment: These findings are consistent with Malave?s esophagus if the biopsies were taken from above the anatomic gastroesophageal junction. 01/2021 EGD AND COLONOSCOPY WERE PERFORMED: ESOPHAGUS: Focal esophagitis at GE junction with 1 cms tongue of Malave's - biopsied. Balloon dilation was performed with 19 and 20 mm CRE balloon x 60 seconds at each level. STOMACH: Gastritis and intact fundal wrap on retroflexed exam Colonoscopy Findings:? No polyps were detected. Moderate diverticulosis seen in the left colon Moderate hemorrhoids on retroflexed exam. Plan:? Repeat Colonoscopy interval based on path results - in 3 years due to fair prep - due on 01/2024. 09/16 - pt is feeling better with resolution of nausea and diarrhea 06/21/24 Had dinner at 6:30 pm yesterday (Had broccoli, aspragus and steak) and feels like she ate today BM can vary between constipation and soft BM Sometimes she has to strain to have a BM. (Of note GES was normal in Dec, 2019) 11/30/24 upper endoscopy with WATS3D(FU of Malaev's) and a colonoscopy (FU of polyps) was performed and results as noted 12/13/24 Pt advised to have hepatitis serologies, iron studies and an abdominal ultrasound with elastography for evaluation of elevated LFT. She likely has fatty liver given BMI of 39.9 Repeat EGD and colon in 3 years (FU of Malave's and colon polyps) - due in Nov, 2027 04/18/25 Early satiety likely due to diabetic gastroparesis versus delayed gastric emptying due to tramadol (takes 50 mg once a day) 08/09/25 gastric emptying study was normal. LFTs are minimally elevated. Repeat labs today. FU in 4 month Orders: Orders Transglutaminase IgA Today R74.8 - Abnormal levels of other serum enzymes Coding Level of Care Code Est Pt Level 4 (55061) Diagnoses Adenomatous polyp of colon D12.6 GERD (gastroesophageal reflux disease) K21.9 Chronic constipation K59.09 Hemorrhoids, internal, with bleeding K64.8 Elevated liver enzymes R74.8 Malvae's esophagus without dysplasia K22.70 Time Spent (min) 21
[2025-08-09 07:43] VITALS: BP 131/65; PULSE 76; BMI 38.8
== END 2025-08-09 08:07 | disposition home or self-care (01) ==
LOC: HO.HGI 07:29
PROVIDERS: PCP Nurse Practitioner Family; Visit Provider Internal Medicine Gastroenterology
DX: D12.6 Benign neoplasm of colon, unspecified (principal); K21.9 Gastro-esophageal reflux disease without esophagitis; K59.09 Other constipation; K64.8 Other hemorrhoids; R74.8 Abnormal levels of other serum enzymes; K22.70 Barrett's esophagus without dysplasia
CPT/HCPCS: 99214

== ENCOUNTER 2025-08-09 07:28 | Outpatient (REF) | payer OTHER, SELFPAY ==
[2025-08-09 08:36] LABS: MANUAL DIFF FLAG NO
[2025-08-09 08:43] LABS: Hematocrit 42.3 % (37.0-47.0); Hemoglobin 14.2 g/dl (12.0-16.0); Imm Gran Abs Auto 0.04 X10*3/uL (0.00-0.03); Imm Gran Pct Auto 0.5 % (0.0-0.4); Lymphocytes Absolute Auto 1.9 X10*3/uL (1.2-4.9); Mean Corpuscular HGB Conc 33.6 g/dl (31.0-35.0); Mean Corpuscular Hemoglobin 26.2 pg (27.0-33.0); Mean Corpuscular Volume 77.9 fL (80.0-98.0); NRBC Abs Auto 0.000 X10*3/uL (0.0-0.012); NRBC Pct Auto 0.0 /100WBC (0.0-0.2); Platelet Count 287 X10*3/uL (160-400); Red Blood Count 5.43 X10*6/uL (4.20-5.50); White Blood Count 7.5 X10*3/uL (4.8-10.8)
[2025-08-09 09:25] LABS: Alanine Aminotransferase 22 U/L (0-31); Albumin Level 4.2 g/dL (3.5-5.0); Alkaline Phosphatase 120 U/L (39-117); Anion Gap 13 (12-20); Aspartate Amino Transferase 20 U/L (5-31); Blood Urea Nitrogen 23 mg/dL (9-16); Calcium 9.2 mg/dL (8.4-10.2); Carbon Dioxide 24 mmol/L (22-29); Chloride 110 mmol/L (96-108); Cholesterol 218 mg/dL (<200); Estimated Glomerular Filt Rate 42; HDL Cholesterol 56 mg/dL (>40); Potassium 4.0 mmol/L (3.3-5.1); Sodium 143 mmol/L (135-145); Total Protein 7.2 g/dL (6.5-8.0); Triglycerides 102 mg/dL (<150)
[2025-08-09 09:51] LABS: HBS Num1 0.20 mIU/mL (0-7.99); HBc Num1 0.06 S/CO (0.00-0.79); HBsAGNum1 0.43 S/CO (0.00-0.99); Hepatitis A Antibody IgM 0.22 Index (0-0.79); Hepatitis B Surface Antigen Negative (Negative); ~HepC Num1 0.06 S/CO (0.00-0.79); ~Hepatitis A Antibody IgM Nonreactive (Nonreactive); ~Hepatitis B Surface Antibody NONREACTIVE (Nonreactive); ~Hepatitis C Antibody Nonreactive (Nonreactive)
[2025-08-09 10:53] LABS: Gamma Glutamyl Transpeptidase 57 U/L (7-33)
[2025-08-09 11:08] LABS: Appearance Urine Clear; Glucose Urine UA >=1000 mg/dL (Negative); PH 6.0 (5.0-9.0); Specific Gravity - Urine >= 1.030 (1.005-1.025); UMIC TRIGGER UACC YES
[2025-08-14 08:18] LABS: Alk.Phos Iso. Macrohepatic 0 % (<=0); Alk.Phos Isoenzymes Bone 48 % (28-66); Alk.Phos Isoenzymes Intest 0 % (1-24); Alk.Phos Isoenzymes Liver 52 % (25-69); Alk.Phos Isoenzymes Placental 0 % (<=0); Alk.Phos Isoenzymes Total 106 U/L (37-153)
[2025-08-20 17:49] LABS: FIB-ALT 14 U/L (6-29); FIB-Alpha-2-Macroglobulin 167 mg/dL (106-279); FIB-Apolipoprotein A1 191 mg/dL (101-198); FIB-GGT 44 U/L (3-65); FIB-Haptoglobin 240 mg/dL (43-212); FIB-Total Bilirubin 0.4 mg/dL (0.2-1.2); Liver Fibrosis Score 0.08; Liver Fibrosis Stage F0; Nec Inflam Act Grade A0; Nec Inflam Act Score 0.03
== END 2025-08-09 07:29 | disposition home or self-care (01) ==
LOC: HO.LAB 07:28
PROVIDERS: Absent Provider Nurse Practitioner Family; PCP Nurse Practitioner Family; Visit Provider Internal Medicine Gastroenterology
DX: K21.9 Gastro-esophageal reflux disease without esophagitis (principal); D12.6 Benign neoplasm of colon, unspecified; K62.5 Hemorrhage of anus and rectum; R74.8 Abnormal levels of other serum enzymes; E11.21 Type 2 diabetes mellitus with diabetic nephropathy; K64.8 Other hemorrhoids; K22.70 Barrett's esophagus without dysplasia; K59.09 Other constipation
CPT/HCPCS: 36415; 80053; 80061; 81001; 81003; 81596; 82248; 82977; 84080; 84443; 85025; 86704; 86706; 86709; 86803; 87340; 99212

== ENCOUNTER 2025-08-13 09:11 | Outpatient (AMB) | payer OTHER, SELFPAY ==
--- OUTSIDE RECORDS SUMMARY | 2025-08-03 17:00 | XMS_ITS ---
Author Organization [facility] Address [address] [place] [address] Care Team Providers Care Refining Equipment Operator Name Role Phone NO, PCP Primary Care Provider [phone] Migration, Provider Unavailable Unavailable Allergies Allergen (clinical drug ingredient) Drug/Non Drug Allergy documented on EMR Reaction Allergy Type Onset Date Status ibuprofen Ibuprofen hives Drug Allergy Active [facility]IT [facility] Encounter Medications Medication SIG (Take, Route, [...] review and pick correct strength-formulat ion from [employer] options. If intended option is not shown, [...] review and pick correct strength-formulat ion from [employer] options. If intended option is not shown, [...] Active Encounters Encounter Location Date Provider Diagnosis [facility] [address] [place] [address] 08/03/2025 Provider Migration Plan Of Treatment No Information Progress Notes * SANCHEZCarlotamineshDOB:1964 (60 yo F)Acc No.[id number]:08/03/2025 Patient: Nydia MORGAN Provider: :1965 A ge:60 Y S ex:Female Date:08/03/2025 Address:[address] [place], [place] [id number] Pcp:PCP NO Subjective: * Chief Complaints: * [facility] . [facility]. * Medical History: * [...] *Please review and pick correct [facility]-formulation [facility]. If intended option is not shown, [...] *Please review and pick correct strength-formulation from [employer] options. If intended option is not shown, [...] Electronic signature of Prov ider Migration on 08/13/2025 at 10:42 AM EDT Sign off status: Pending * Provider: Date: 08/03/2025 Generated for Jay latif/Gregg/Oracioitting on: 08/13/2025 10:42 AM EDT
[2025-08-13 09:12] VITALS: BP 130/82; PULSE 63; RESP 16; O2SAT 98; BMI 39.1
--- NOTE | 2025-08-13 09:12 | AM.OFFWIN_ITS ---
Intake Vital Signs 08/13/25 09:12 Height 5 ft 2 in Weight 214 lb BMI 39.1 BP 130/82 Blood Pressure Location Lt brachial Position Sitting Respiration 16 Pulse 63 Pulse Source Pulse Oximeter Pulse Oximetry (%) 98 Oxygen Delivery Method Room Air Intake Visit Reasons: EP pain in lower back/ leg and toe pain right side Patient Tobacco Use Status: Never used Tobacco Allergies ibuprofen (IBUPROFEN) Allergy (Mild, Verified 08/13/25 09:13) RASH, hives Medication List - Last Reconciled 08/13/25 by Marlin Jewell MD acetaminophen ER (Tylenol 8 Hour) 650 mg PO Q12H PRN albuterol sulfate 5 mg inhalation Q4H PRN albuterol sulfate 90 mcg/actuation 2 puffs inhalation Q20M PRN amlodipine 10 mg PO DAILY 90 days aripiprazole 5 mg PO DAILY atorvastatin 20 mg PO DAILY blood pressure kit-extra large As directed blood sugar diagnostic (FlipKeyuch Ultra Test strips) Use to check blood sugar twice daily: fasting blood sugar and a random blood sugar blood-glucose meter (FlipKeyuch Ultra2 Meter) Use to check blood sugar twice daily: fasting blood sugar and a random blood sugar buspirone mg PO carvedilol 25 mg PO BID cholecalciferol (vitamin D3) 50 mcg PO DAILY clonidine HCl 0.1 mg PO BID 30 days diclofenac sodium 1% (Arthritis Pain (diclofenac)) 4 grams topical QID 30 days dicyclomine 20 mg PO BID PRN 90 days docusate sodium 100 mg PO BEDTIME empagliflozin 25 mg PO DAILY 90 days flash glucose scanning reader (Aricent GroupStyle Susu 2 [place]) As directed flash glucose sensor (FreeStyle Susu 2 Sensor kit) test blood sugar 4 times per day fluticasone propionate 110 mcg/actuation 1 puff inhalation BID 30 days gabapentin 100 mg PO BEDTIME 30 days humidifiers As directed hydrochlorothiazide 25 mg PO DAILY 30 days hydroxyzine HCl 10 mg PO TID PRN incontinence pad, liner, disp use daily for incont ketoconazole 2% 1 appl topical DAILY lancets Use to check blood sugar twice daily: fasting blood sugar and a random blood sugar magnesium oxide 400 mg PO BEDTIME 30 days melatonin 3 mg PO QPM naloxone 4 mg/actuation (Narcan) 4 mg intranasal Q2M PRN omeprazole 20 mg PO BID prednisone 40 mg (2 x 20 mg) PO DAILY 5 days rivaroxaban (Xarelto) 20 mg PO DAILY sennosides-docusate sodium 8.6-50 mg (Senna Plus) 2 tab-caps (2 x 8.6-50 mg) PO BEDTIME 60 days sertraline 100 mg PO DAILY spironolactone 25 mg PO BID tizanidine 4 mg PO TID PRN tramadol 50 mg PO BEDTIME PRN 10 days zolpidem 5 mg PO BEDTIME PRN HPI EP pain in lower back/ leg and toe pain right side HPI Details History of Present Illness The patient is a 60 year old female presenting with back pain and sciatica. Back Pain: - Onset: Started approximately a week or a week and a half ago. - Location: Left side of the back. - Radiation: Pain extends down the left leg. - Associated symptoms: Numbness in the l eft toe. - Previous occurrences: +history of kaiden lar pain. - Past treatments: Had an MRI in 2020 wh ich indicated lumbar spondylosis. - Medications tried: Tylenol, with cauti on due to compromised kidney function. Allergy to ibuprofen noted. - Comments: Described as new onset pain impacting daily activities. Sciatica: - Symptoms: Presence of radiating pain f rom the lumbar region down the left leg with numbness in the toe. - Duration: Aligns with the timeline of back pain onset, i.e., about a week or a week and a half. - Previous interventions: MRI conducted in 2020; recent treatment includes Gabapentin. 100 mg which is not helping Medical History: - Lumbar spondylosis diagnosed via MRI i n 2020. - Compromised kidney function. - Allergy to ibuprofen. Problem List - Back Pain - Sciatica - Lumbar Spondylosis Patient Instructions - Continue taking Tylenol as advised, bu t avoid ibuprofen due to allergy and kidney concerns. - Begin taking 300 mg of Gabapentin for pain management. - Undergo an x-ray of the back as ashkan hernandes - Follow up with primary care appointpretty winter on October 03 for further management. - take prednisone 20 mg once a day for 7 days Review of Systems - General: No fever no chills - Neurological: No headaches no dizziness - Ear nose throat: No sore throat no hearing difficulty no ear pain - Cardiovascular: No syncope, no chest pain, no palpitations - Gastrointestinal: No nausea vomiting or diarrhea Physical Exam General: In mild distress secondary to pain HEENT: No acute findings Neck: Supple Respiratory system: Able to talk in full sentences, no audible wheeze Gastrointestinal: No pain Extremities: No edema Back: No pain with percussion slight positive leg raise on left side 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 [facility] Medical History GERD (gastroesophageal reflux disease) PAF (paroxysmal atrial fibrillation) Barretts esophagus Hx of flexible sigmoidoscopy Osteoarthritis of left hip Spondylosis without myelopathy or radiculopathy, 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 Sacroiliitis Asthma WENDY (obstructive sleep apnea) Morbid obesity Swelling of both lower extremities Afib Disc degeneration, lumbar Cervical pain (neck) Calcaneal spur Benign neoplasm breast skin Bursitis, shoulder Xanthelasma Auditory hallucinations Impaired glucose tolerance Hyperlipidemia Anxiety Depression Adenomatous polyp of colon Esophagitis Hypertensive urgency Palpitations HTN (hypertension) Dyspepsia GERD (gastroesophageal reflux disease) Surgical History Hx of colonoscopy H/O esophagogastroduodenoscopy (09/01/15) Status post Margarita fundoplication (10/27/12) History of removal of cyst Hx of cholecystectomy History of hysterectomy Family History Father CVD (cardiovascular disease) HTN (hypertension) Diabetes Mother HTN (hypertension) Diabetes CVD (cardiovascular disease) Brother Pacemaker Maternal Grandmother Throat cancer Brother No problems noted. Daughter Hx LEEP (loop electrosurgical excision procedure), cervix, Other Mental health disorder Substance use disorder Social History Household Members: None Housing: House Are you a primary home care provider to a significant other at home: No Do you presently have visiting nurse or other home services: No Alcohol intake: never Patient Tobacco Use Status: Never used Tobacco e-Cigarette/Vaping Use: Never Used Second Hand Smoke Exposure: No Advance Directives Date on File: 03/16/21 service: No Current occupational status: disabled Sexual orientation: Straight/Heterosexual Gender identity: Female Cognitive needs: No Hearing needs: No Vision needs: No Physical Exam Vital Signs: Last Vital Signs Pulse 63 08/13/25 09:12 Resp 16 08/13/25 09:12 BP 130/82 08/13/25 09:12 Pulse Ox 98 08/13/25 09:12 Oxygen Delivery Method Room Air 08/13/25 09:12 BMI result Body Mass Index 39.1 Assessment & Plan Assessment & Plan (1) Acute back pain with sciatica: Code(s): M54.40 - Lumbago with sciatica, unspecified side Qualifiers: Laterality: left Qualified Code(s): M54.42 - Lumbago with sciatica, left side (2) Foot pain, left: Code(s): M79.672 - Pain in left foot Plan History of Present Illness The patient is a 60 year old female presenting with back pain and sciatica. Back Pain: - Onset: Started approximately a week or a week and a half ago. - Location: Left side of the back. - Radiation: Pain extends down the left leg. - Associated symptoms: Numbness in the left toe. - Previous occurrences: +history of similar pain. - Past treatments: Had an MRI in 2020 which indicated lumbar spondylosis. - Medications tried: Tylenol, with caution due to compromised kidney function. Allergy to ibuprofen noted. - Comments: Described as new onset pain impacting daily activities. Sciatica: - Symptoms: Presence of radiating pain from the lumbar region down the left leg with numbness in the toe. - Duration: Aligns with the timeline of back pain onset, i.e., about a week or a week and a half. - Previous interventions: MRI conducted in 2020; recent treatment includes Gabapentin. 100 mg which is not helping Medical History: - Lumbar spondylosis diagnosed via MRI in 2020. - Compromised kidney function. - Allergy to ibuprofen. Problem List - Back Pain - Sciatica - Lumbar Spondylosis Patient Instructions - Continue taking Tylenol as advised, but avoid ibuprofen due to allergy and kidney concerns. - Begin taking 300 mg of Gabapentin for pain management. - Undergo an x-ray of the back as ordered. - Follow up with primary care appointment on October 03 for further management. - take prednisone 20 mg once a day for 7 days X-rays of back does not show anything acute, spondylosis and anterior listhesis lower lumbar Foot x-ray shows calcaneal spur patient was notified Orders: Orders XR lumbar spine 2-3V Today M54.40 - Lumbago with sciatica, unspecified side Medications: Changed From prednisone 20 mg PO DAILY 5 days 5 tabs 0RF To prednisone 20 mg PO DAILY 7 tabs 0RF 7 days From gabapentin 100 mg PO BEDTIME 30 days 30 caps 2RF To gabapentin 300 mg PO BEDTIME 30 caps 2RF 30 days Coding Level of Care Code Est Pt Level 4 (59015) Diagnoses Acute left-sided back pain with sciatica M54.42 Laterality: left Foot pain, left M79.672 Time Spent (min) 30 Comment Review of chart/gqhy-vo-zuae/follow up on x-rays
--- OUTSIDE RECORDS SUMMARY | 2025-08-13 10:42 | XMS_ITS | Patient Health Record ---
Author Organization [facility] Address [address] [place] [address] Care Team Providers Care Datastage Architect Name Role Phone NO, PCP Primary Care Provider Migration, Provider Unavailable Unavailable Allergies Allergen (clinical drug ingredient) Drug/Non Drug Allergy documented on EMR Reaction Allergy Type Onset Date Status ibuprofen Ibuprofen hives Drug Allergy Active Reason For Referral No Information Medications Medication SIG (Take, Route, Frequency, Duration) Notes Start Date End Date Status CombiPatch 0.05-0.25 MG/DAY 1 PATCH applied topically 2 times a week Not-Taking Albuterol Sulfate HFA 108 (90 Base) MCG/ACT 2 puff(s) inhaled 4 times a day Active traMADol HCl 50 MG 1 tab(s) orally every 4 hours Not-Taking Zolpidem Tartrate 5 MG 1 tab(s) orally once a day (at bedtime) Active amLODIPine Besylate 10 MG 1 tab(s) orally once a day Active OXYCODONE/APAP 5/325MG ONE ORALLY QID *Please review for potential replacement for e-prescription and drug interaction check* Active Xarelto *Please review and pick correct strength-formulat ion from Resonergy options. If intended option is not shown, discontinue and re-order from Quick Search* Active Abilify 5 MG 1 tab(s) orally once a day Active Sertraline HCl 100 MG 1 tab(s) orally once a day Active busPIRone HCl 15 MG 1 tab(s) orally 2 times a day Active Lisinopril 40 MG 1 tab(s) orally once a day Active TRAZODONE 50MG 150 MG 1 TAB(S) ORALLY ONCE A DAY (AT BEDTIME) *Please review for potential replacement for e-prescription and drug interaction check* Not-Taking Omeprazole 20 MG 1 cap(s) orally once a day Active Spironolactone 25 MG 1 tab(s) orally 2 times a day Active Flovent HFA CFC FREE 110 MCG/INH 2 PUFF(S) INHALED 2 TIMES A DAY *Please review and pick correct strength-formulat ion from Medispan options. If intended option is not shown, discontinue and re-order from Quick Search* Active Carvedilol 12.5 MG 1 tab(s) orally 2 times a day Active Encounters Encounter Location Date Provider Diagnosis [id number] [place] [address] 08/03/2025 Provider Migration Plan Of Treatment No Information Insurance Providers Payer Name Payer Address Payer Phone Subscriber Number Group Number Insured Name Patient Relationship to Insured Coverage Start Date Coverage End Date [employer] [address] [place] [address] [id number] Nydia Schuster Self - patient is the insured Medical (General) History Medical History History ICD Code HTN Depression Asthma Astma exacerbation Lumbar back pain Xanthelasma Hot flashes due to menopause Carpal tunnel syndrome on both sides Other chronic pain anxiety
--- OUTSIDE RECORDS SUMMARY | 2025-08-13 10:42 | XMS_ITS | Clinical Summary ---
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
--- OUTSIDE RECORDS SUMMARY | 2025-08-13 10:42 | XMS_ITS | Patient Health Record ---
Author Organization [facility] [place] Address [address] [facility] [place] [address] Care Team Providers Care Veterinary Science Teacher Name Role Phone Alfredo Rodrigues Primary Care Provider Unav ailable Ayush Hyman Unavailable [phone] Allergies Allergen (clinical drug ingredient) Drug/Non Drug [...] Insured Coverage Start Date Coverage End Date [facility] [employer] [address] [place] [id number] Remington swan Nydia Self - patient is [...] Hospitalization History Reason Date(Month/Year) hypertension childbirth [place] [facility] [place] palpitations April or May 2018
--- OUTSIDE RECORDS SUMMARY | 2025-08-13 10:42 | XMS_ITS | Encounter Summary ---
Author Organization [facility] Address [address] [facility] [address] [place] [address] Phone Care Team Providers Care Marketing Consultant Name Role Phone Alfredo Massey NP Primary Care Provider [phone] Reason for Visit * Reason Comments Med Refill Encounter Details Date Type Department Care Team (Late st Contact Info) Description 07/20/2025 Refill [facility] [address] [facility] [address] [place] [address] Johnson Sosa MD [address] [facility] [address] [place] [address] Social History Tobacco Use Types [...] on filedocumented in this encounter Care Teams Marketing Consultant Relationship Specialty Start Date End Date Alfredo Massey NP [address] [place] [address] PCP - General Nurse Practitioner 03/03/22 documented as of this encounter
--- OUTSIDE RECORDS SUMMARY | 2025-08-13 10:42 | XMS_ITS | Clinical Summary ---
Author Organization [facility] Address [address] [place] [id number] Care Team Providers Care Waste Water Worker Name Role Phone Alfredo Massey NP Primary Care Provider [phone] Allergies Active Allergy Reactions Criticality Noted Date [...] [place] [address] [place] [address] Johnson Sosa MD from Last 3 Months [...] Phone Billing Address Personal/Family Self [address] ([id number]) ([id number]) Care Teams Waste Water Worker Relationship Specialty Start Date End Date Alfredo Massey NP [address] [place] [address] PCP - General Nurse Practitioner 03/03/22
== END 2025-08-13 09:42 | disposition home or self-care (01) ==
PROVIDERS: PCP Nurse Practitioner Family; Visit Provider Internal Medicine
DX: M54.42 Lumbago with sciatica, left side (principal); M79.672 Pain in left foot

== ENCOUNTER 2025-08-13 09:11 | Outpatient (REF) | payer OTHER, SELFPAY ==
--- NOTE | ~2025-08-13 | XR_ITS ---
EXAMINATION: XR FOOT, LEFT CLINICAL INFORMATION: M79.672 - Pain in left foot COMPARISON: None available. TECHNIQUE: AP, lateral, and oblique views of the left foot. FINDINGS: No fracture, dislocation, or suspicious bone lesion. There is normal alignment. Joint spaces are preserved. Normal plantar arch. There is a moderate to large sized plantar calcaneal spur present. There are no soft tissue abnormalities. XR/XR foot LT min 3V IMPRESSION: 1. No acute findings of the left foot. 2. Moderate to large sized plantar calcaneal spur. Electronically signed by: Isai Sanchez MD 08/13/2025 10:00 AM EDT
--- NOTE | ~2025-08-13 | XR_ITS ---
EXAMINATION: XR LUMBOSACRAL SPINE CLINICAL INFORMATION: M54.40 - Lumbago with sciatica, unspecified side COMPARISON: Correlated to MRI dated July 20, 2021. TECHNIQUE: AP and lateral views. FINDINGS: Multilevel endplate sclerosis marginal osteophyte formation and decreased intervertebral disc height throughout the axial skeleton pronounced at L4-5 and L5-S1. Grade 1 anterolisthesis L4-5. No acute cortical disruption. No lytic or blastic lesions. Vascular calcifications. Sclerosis and sacroiliac joints. XR/XR lumbar spine 2-3V IMPRESSION: Multilevel thoracolumbar spondylosis and grade 1 anterolisthesis L4-5. Electronically signed by: Marquise Walls MD 08/13/2025 09:59 AM EDT
== END 2025-08-13 09:12 | disposition home or self-care (01) ==
LOC: HO.HMGCX 09:11
PROVIDERS: PCP Nurse Practitioner Family; Visit Provider Internal Medicine
DX: M54.42 Lumbago with sciatica, left side (principal); M79.672 Pain in left foot; Z79.01 Long term (current) use of anticoagulants; Z79.891 Long term (current) use of opiate analgesic
CPT/HCPCS: 72100; 73630; 99212

== ENCOUNTER → 2025-08-13 09:26 | Outpatient (BNV) | payer OTHER, SELFPAY | PROVIDERS: PCP Nurse Practitioner Family; Visit Provider Radiology Diagnostic Radiology | DX: M47.815 Spondylosis without myelopathy or radiculopathy, thoracolumbar region (principal); M77.32 Calcaneal spur, left foot | CPT/HCPCS: 72100; 73630 ==

== ENCOUNTER 2025-10-03 09:34 | Outpatient (AMB) | payer OTHER, SELFPAY ==
--- OUTSIDE RECORDS SUMMARY | 2025-08-03 16:00 | XMS_ITS ---
Author Organization [facility] Address [address] [place] [address] Care Team Providers Care Flatwork Presser Name Role Phone NO, PCP Primary Care Provider Migration, Provider Unavailable Unavailable Allergies Allergen (clinical drug ingredient) Drug/Non Drug Allergy documented on EMR Reaction Allergy Type Onset Date Status ibuprofen Ibuprofen hives Drug Allergy Active [facility] Encounter Medications Medication SIG (Take, [...] review and pick correct strength-formulat ion from [employer] options. If intended option is not shown, [...] review and pick correct strength-formulat ion from [employer] options. If intended option is not shown, [...] Active Encounters Encounter Location Date Provider Diagnosis [facility] [address] [place] [address] 08/03/2025 Provider Migration Plan Of Treatment No Information Progress Notes * SANCHEZCarlotamineshDOB:1964 (60 yo F)Acc No.[id number]:08/03/2025 Patient: Nydia MORGAN Provider: :1965 A ge:60 Y S ex:Female Date:08/03/2025 Address:[address] [place], [place] [id number] Pcp:PCP NO Subjective: * Chief Complaints: * [facility] . [facility] * Medical History: * Medications: [...] *Please review and pick correct strength-formulation from [facility]. If intended option is not [...] *Please review and pick correct strength-formulation from [employer] options. If intended option is not shown, [...] Electronic signature of Prov ider Migration on 10/03/2025 at 11:03 AM EST Sign off status: Pending * Provider: Date: 0 08/03/2025 Generated for Jay latif/Gregg/Omi on: 12/03/2024 11:03 AM EST
[2025-10-03 09:42] VITALS: BP 128/72; PULSE 83; RESP 16; TEMP 36.6; O2SAT 100; BMI 39.3
--- NOTE | 2025-10-03 09:42 | MHC.PC.OV ---
Vital Signs 10/03/25 09:42 Height 5 ft 2 in Weight 215 lb BMI 39.3 BP 128/72 Blood Pressure Location Rt brachial Position Sitting Respiration 16 Pulse 83 Pulse Source Pulse Oximeter Temp 97.8 F Temp Source Oral Pulse Oximetry (%) 100 Oxygen Delivery Method Room Air Intake Visit Reasons: 4m f/u- due for A1C Nanoscience Technician Required: No Accompanied by: Self / Same As Patient Allergies ibuprofen (IBUPROFEN) Allergy (Mild, Verified 10/03/25 09:48) RASH, hives Tobacco use date assessed: 10/03/25 Dental Screening Dental Screen Date: 10/03/25 Did you have a dental visit in the last 12 months?: Yes Did you have a dental problem in the last 6 months where you did not have access to dental care?: No Was dental information given to patient?: Patient has dentist HPI 4m f/u- due for A1C HPI Details Chief Complaint Patient presents for a follow-up visit for diabetes management. History of Present Illness The patient is a 60-year-old female presenting for a follow-up visit for diabetes. She has been recovering from the flu. Regarding her diabetes, her Hemoglobin A1c has increased to 7.7% from a previous value of 6.9%. She reports intermittent burning sensations on the plantar aspect of her feet, consistent with neuropathy. The patient believes the elevated A1c is diet-related. For hyperlipidemia, her LDL is 142 mg/dL. She is currently taking a statin at a dose of 20 mg. Social History - Diet: The recent increase in her A1c is believed to be diet-related, and the patient reports she will work on modifying it. Health Maintenance - The patient has committed to working on her diet to improve glycemic control. Review of Systems - Constitutional: Reports recovering from the flu. - Neurological: Reports intermittent burning sensations on the plantar aspect of her feet. -denies any cp, increased sob Physical Exam General: Cooperative, healthy appearing, comfortable, no acute distress and well developed, morbidly obese Orientation: Patient oriented x3 Limitations: No limitations Head: Normal to inspection Ears: Hearing grossly normal bilaterally Nose: Normal external nose present Face and sinus: Normal facial exam Eyes: Appearance normal, both eyes and all related structures Neck: Normal visual inspection and Yes full ROM Respiratory: Normal respiratory effort and able to speak in complete sentences. Clear to auscultation bilaterally Cardiovascular: Regular rate and rhythm. S1-S2 faint systolic murmur GI: Normal to inspection. Soft to palpation and nontender Skin: No rashes or lesions noted Neuro: Patient oriented x3. Extremities: Normal to inspection. Positive sensation using monofilament of her feet, which are intact bilat Results - Labs: - Hemoglobin A1c: 7.7% (increased from 6.9%). - LDL Cholesterol: 142 mg/dL. Plan 1. Diabetes Mellitus With Diabetic Neuropathy The patient's Hemoglobin A1c has risen to 7.7% from 6.9%. No changes will be made to her medications at this time, as the patient reports she will work on dietary modifications to improve glycemic control. A follow-up appointment is scheduled in 3-4 months to repeat the A1c. 2. Hyperlipidemia The patient's LDL cholesterol is elevated at 142 mg/dL while on a 20 mg statin. The statin dose will be increased to 40 mg. Lab orders for a lipid panel will be placed. Discussion Notes I discussed with the patient that her A1c has increased to 7.7%, and she believes it is primarily related to her diet. We decided to hold off on medication changes, and she will focus on dietary improvements. We will re-evaluate with a repeat A1c in 3-4 months. I also addressed her elevated LDL of 142 mg/dL and will be increasing her statin dose from 20 mg to [address] orders for follow-up lipid labs as well. Patient Instructions - Focus on making changes to your diet to help lower your blood sugar levels. - Increase your statin (cholesterol medication) dose to 40 mg as directed. - Return to the clinic for a follow-up visit in about 3 to 4 months. - You will need to have your blood sugar (A1c) and cholesterol levels checked again at your next visit. [facility] Medical History GERD (gastroesophageal reflux disease) PAF (paroxysmal atrial fibrillation) Barretts esophagus Hx of flexible sigmoidoscopy Osteoarthritis of left hip Spondylosis without myelopathy or radiculopathy, 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 Sacroiliitis Asthma WENDY (obstructive sleep apnea) Morbid obesity Swelling of both lower extremities Afib Disc degeneration, lumbar Cervical pain (neck) Calcaneal spur Benign neoplasm breast skin Bursitis, shoulder Xanthelasma Auditory hallucinations Impaired glucose tolerance Hyperlipidemia Anxiety Depression Adenomatous polyp of colon Esophagitis Hypertensive urgency Palpitations HTN (hypertension) Dyspepsia GERD (gastroesophageal reflux disease) Surgical History Hx of colonoscopy H/O esophagogastroduodenoscopy (09/01/15) Status post Margarita fundoplication (10/27/12) History of removal of cyst Hx of cholecystectomy History of hysterectomy Family History Father CVD (cardiovascular disease) HTN (hypertension) Diabetes Mother HTN (hypertension) Diabetes CVD (cardiovascular disease) Brother Pacemaker Maternal Grandmother Throat cancer Brother No problems noted. Daughter Hx LEEP (loop electrosurgical excision procedure), cervix, Other Mental health disorder Substance use disorder Social History Household Members: None Housing: House Are you a primary primary care nurse practitioner to a significant other at home: No Do you presently have visiting nurse or other home services: No Alcohol intake: never Patient Tobacco Use Status: Never used Tobacco e-Cigarette/Vaping Use: Never Used Second Hand Smoke Exposure: No Advance Directives Date on File: 03/16/21 service: No Current occupational status: disabled Sexual orientation: Straight/Heterosexual Gender identity: Female Cognitive needs: No Hearing needs: No Vision needs: No Questionnaire PHQ-9 Over the last 2 weeks, how often have you been bothered by any of the following problems? 1. Little interest or pleasure in doing things: not at all 2. Feeling down, depressed, or hopeless: not at all 3. Trouble falling or staying asleep, or sleeping too much: not at all 4. Feeling tired or having little energy: not at all 5. Poor appetite or overeating: not at all 6. Feeling bad about yourself - or that you are a failure or have let yourself or your family down: not at all 7. Trouble concentrating on things, such as reading the newspaper or watching television: not at all 8. Moving or speaking so slowly that other people could have noticed. Or the opposite - being so fidgety or restless that you have been moving around a lot more than usual: not at all 9. Thoughts that you would be better off or of hurting yourself in some way: not at all Total score: 0 Depression Screening Interpretation: Negative Depression Screening Done: Yes 52333 - PHQ-9 Billing: Patient declined-do not bill Source: Developed by Drs. Leonardo Grant, Philly Velasquez, Jose Ramon Poon and colleagues, with an educational gifty from [employer]. Thrive Questionnaire Date Thrive assessed: 12/04/24 I am a: Patient What is your living situation today?: I have a steady place to live Within the past 12 months, did the food you bought not last and you didn't have the money to get more?: Often true Within the past 12 months, did you worry whether your food would run out before you got money to buy more?: Never true Do you have trouble paying for medicines?: No Do you have trouble getting transportation to medical appointments?: No Do you have trouble paying your heating and electricity bill?: No Do you have trouble taking care of your child, family member or friend?: No Do you have trouble with day-to-day activities such as bathing, preparing meals, shopping, managing finances, etc.?: Yes Are you currently unemployed and looking for a job?: No Are you interested in more education?: No Please select the resources that you would like help with: None Currently or been in a relationship where the following occur: No concerns reported THRIVE Score: 1 DION-7 AMB Questionnaire DION-7 Date DION - 7 assessed: 10/03/25 Feeling nervous, anxious, or on edge: 0 = Not at all Not being able to stop or control worryin = Not at all Worrying too much about different things: 0 = Not at all Trouble relaxin = Not at all Being so restless that it is hard to sit still: 0 = Not at all Becoming easily annoyed or irritable: 0 = Not at all Feeling afraid as if something awful might happen: 0 = Not at all Total DION-7 score (0-4 normal; 5-9 mild; 10-14 moderate; 15-21 severe): 0 Source: Developed by Drs. Leonardo Grant, Jose Ramon Callahan and colleagues, with an educational gifty from [employer]. DION-7 Assessment Billing DION-7 Assessment Tool: DION-7 Assessment 07778 Physical exam (Primary Care) Vital Signs: Last Vital Signs Temp 97.8 F 10/03/25 09:42 Pulse 83 10/03/25 09:42 Resp 16 10/03/25 09:42 BP 128/72 10/03/25 09:42 Pulse Ox 100 10/03/25 09:42 Oxygen Delivery Method Room Air 10/03/25 09:42 BMI result Body Mass Index 39.3 Tobacco/Smoking Status: Tobacco use Status Tobacco use date assessed 10/03/25 10/03/25 09:55 Patient Tobacco Use Status Never used Tobacco 10/03/25 09:43 e-Cigarette/Vaping Use Never Used 10/03/25 09:43 PHQ-9: PHQ-9 Score PHQ-9: Total score 0 10/03/25 10:36 Depression Screening Interpretation: Negative Thrive Assessment: Date of Thrive Assessment Date Thrive assessed 12/04/24 10/03/25 09:43 Currently or been in a relationship where the following occur: No concerns reported Results AMB Hemoglobin A1c AMB Hemoglobin A1c 7.7 % Last Edit by Vero Escobar MA on 10/03/25 10:23 AMB Hemoglobin A1c previously reported as 0934 Vero Escobar 10/03/25 10:23 Results Reviewed Results Reviewed: Laboratory Last Values Hgb A1c (Clinic) 7.7 % (4.0-6.0) H 10/03/25 09:55 Coding Level of Care Code Est Pt Level 3 (65871) Diagnoses Dyslipidemia E78.5 Type 2 diabetes mellitus with diabetic nephropathy, without long-term current use of insulin E11.21 Diabetes mellitus complication detail: with nephropathy Diabetes mellitus complication status: with kidney complications 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: without long-term use Diabetes mellitus type: type 2 Additional Codes DION-7 Assessment Billing - DION-7 Assessment Tool: DION-7 Assessment 89654 ([id number]) Assessment & Plan Assessment & Plan (1) Dyslipidemia: Code(s): E78.5 - Hyperlipidemia, unspecified Category: Medical (2) Diabetes: Code(s): E11.9 - Type 2 diabetes mellitus without complications Category: Medical Qualifiers: Diabetes mellitus complication detail: with nephropathy Diabetes mellitus complication status: with kidney complications 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 Orders: Orders Lipid Panel Today E11.21 - Type 2 diabetes mellitus with diabetic nephropathy, E78.5 - Hyperlipidemia, unspecified AMB Hemoglobin A1c Today E11.21 - Type 2 diabetes mellitus with diabetic nephropathy Complete Blood Count Auto Diff Today E11.21 - Type 2 diabetes mellitus with diabetic nephropathy, E78.5 - Hyperlipidemia, unspecified Comprehensive [place]. Panel Fast Today E11.21 - Type 2 diabetes mellitus with diabetic nephropathy, E78.5 - Hyperlipidemia, unspecified TSH reflex Free T4 Today E11.21 - Type 2 diabetes mellitus with diabetic nephropathy, E78.5 - Hyperlipidemia, unspecified UA CC w/rflx Micro + Cult Today E11.21 - Type 2 diabetes mellitus with diabetic nephropathy, E78.5 - Hyperlipidemia, unspecified Medications: Changed From atorvastatin 20 mg PO DAILY To atorvastatin increased dose 40 mg PO DAILY 90 tabs 0RF
--- OUTSIDE RECORDS SUMMARY | 2025-10-03 11:03 | XMS_ITS | Patient Health Record ---
Author Organization [facility] Address [address] [place] [address] Care Team Providers Care Soil Engineer Name Role Phone NO, PCP Primary Care Provider [phone] Migration, Provider Unavailable Unavailable Allergies Allergen (clinical [...] review and pick correct strength-formulat ion from [employer] options. If intended option is not shown, [...] Active Encounters Encounter Location Date Provider Diagnosis [id number] [place] [address] 08/03/2025 Provider Migration Plan Of Treatment No Information Insurance Providers Payer Name Payer Address Payer Phone Subscriber Number Group Number Insured Name Patient Relationship to Insured Coverage Start Date Coverage End Date [employer] [address] [place] [address] [phone] [id number] Nydia Schuster Self - patient is the insured Medical (General) History Medical History History ICD Code HTN Depression Asthma Astma exacerbation Lumbar back pain Xanthelasma Hot flashes due to menopause Carpal tunnel syndrome on both sides Other chronic pain anxiety
--- OUTSIDE RECORDS SUMMARY | 2025-10-03 11:03 | XMS_ITS | Clinical Summary ---
Author Organization [facility] Address [address] [place] [address] Care Team Providers Care Manufacturing Laborer Name Role Phone Unavailable Primary Care Provider [...] Screening 1965 Depression Monitoring 1965 HPV Screening (self-collect) 1965 HPV Screening 1965 Hepatitis C Screening [...] 12/23/2023 12/21/2022 Alcohol and Drug Screen 11/21/2024 [id number] ( season) 2025 Imm-Influenza (#1) 2025 Diabetes Screening 11/25/2025 11/25/2022 Dental FMX/Pano 09/12/2027 09/10/2022 Cervical Ablation/Cold-Knife Conization Discontinued Cervical Cryotherapy Discontinued Colposcopy Discontinued Excision/Leep Discontinued HPV Genotyping Discontinued Vaginal [...] Most Recently Relevant to Health Maintenance Insurance [facility]
--- OUTSIDE RECORDS SUMMARY | 2025-10-03 11:03 | XMS_ITS | Patient Health Record ---
Author Organization [facility] [place] Address [address] [place] [address] Care Team Providers Care Healthcare Management Consultant Name Role Phone Alfredo Rodrigues Primary Care Provider Unav ailable Ayush Hyman Unavailable [phone] Allergies Allergen (clinical drug ingredient) Drug/Non Drug [...] Insured Coverage Start Date Coverage End Date [facility] Claims [address] [place] [id number] Remington swan Nydia Self - patient is [...] Reason Date(Month/Year) [place] child[place] 2013 [facility] [place] palpitations April or May 2018
--- OUTSIDE RECORDS SUMMARY | 2025-10-03 11:03 | XMS_ITS | Clinical Summary ---
Author Organization [facility] Facility Address [address] [place] [address] Care Team Providers Care Braille Coder Name Role Phone Alfredo Massey NP Primary Care Provider [phone] Allergies Active Allergy Reactions Criticality Noted Date [...] Of [address] [place] [address] Johnson Sosa MD from Last 3 Months [...] Phone Billing Address Personal/Family Self [address] ([id number]) * Guarantor: Landen Nydia Account Type Relation to Patient Date of Phone Billing Address Personal/Family Self 1965 [id number] [facility] ([id number]) Care Teams Braille Coder Relationship Specialty Start Date End Date Alfredo Massey NP [address] [place] [address] PCP - General Nurse Practitioner 03/03/22
== END 2025-10-03 10:30 | disposition home or self-care (01) ==
PROVIDERS: PCP Nurse Practitioner Family; Visit Provider Nurse Practitioner Family
DX: E78.5 Hyperlipidemia, unspecified (principal); E11.21 Type 2 diabetes mellitus with diabetic nephropathy

== ENCOUNTER → 2025-10-03 09:34 | Outpatient (BNVA) | payer OTHER, SELFPAY | PROVIDERS: PCP Nurse Practitioner Family; Visit Provider Nurse Practitioner Family | DX: E11.21 Type 2 diabetes mellitus with diabetic nephropathy (principal); E11.40 Type 2 diabetes mellitus with diabetic neuropathy, unspecified; E78.5 Hyperlipidemia, unspecified | CPT/HCPCS: 83036; 96127; 99212 ==

== ENCOUNTER 2025-10-07 10:44 | Outpatient (REF) | payer OTHER, SELFPAY ==
[2025-10-07 14:28] LABS: Anion Gap 14 (12-20); Blood Urea Nitrogen 22 mg/dL (9-16); Carbon Dioxide 24 mmol/L (22-29); Chloride 105 mmol/L (96-108); Estimated Glomerular Filt Rate 42; Potassium 4.6 mmol/L (3.3-5.1); Sodium 138 mmol/L (135-145)
== END 2025-10-07 10:45 | disposition home or self-care (01) ==
LOC: HO.HKASLDS 10:44
PROVIDERS: PCP Nurse Practitioner Family; Visit Provider Internal Medicine Nephrology
DX: N18.31 Chronic kidney disease, stage 3a (principal)
CPT/HCPCS: 36415; 80051; 82565; 84520

== ENCOUNTER 2025-10-15 10:03 | Outpatient (AMB) | payer OTHER, SELFPAY ==
--- OUTSIDE RECORDS SUMMARY | 2025-08-03 16:00 | XMS_ITS ---
Author Organization [facility] Address [address] [place] [address] Care Team Providers Care Insole And Outsole Splitter Name Role Phone NO, PCP Primary Care Provider [phone] Migration, Provider Unavailable Unavailable Allergies Allergen (clinical drug ingredient) Drug/Non Drug Allergy documented on EMR Reaction Allergy Type Onset Date Status ibuprofen Ibuprofen hives Drug Allergy Active [facility] Encounter Medications Medication SIG (Take, Route, [...] review and pick correct strength-formulat ion from [employer] options. If intended option is not shown, [...] review and pick correct strength-formulat ion from [employer] options. If intended option is not shown, [...] Active Encounters Encounter Location Date Provider Diagnosis [facility] [address] [place] [address] 08/03/2025 Provider Migration Plan Of Treatment No Information Progress Notes * SANCHEZCarlotamineshDOB:1964 (60 yo F)Acc No.[id number]:08/03/2025 Patient: Nydia MORGAN Provider: :1965 A ge:60 Y S ex:Female Date:08/03/2025 Address:[address] [place], [place] [id number] Pcp:PCP NO Subjective: * Chief Complaints: * [facility] . [facility] * Medical History: * Medications: [...] *Please review and pick correct strength-formulation from [facility] options. If intended option is not shown, [...] *Please review and pick correct strength-formulation from [employer] options. If intended option is not shown, [...] Electronic signature of Prov ider Migration on 10/15/2025 at 12:09 PM EST Sign off status: Pending * Provider: Date: 0 08/03/2025 Generated for Jay latif/Gregg/Omi on: 12/15/2024 12:09 PM EST
--- NOTE | 2025-10-15 10:23 | HO.NEPHOV_ITS ---
Vital Signs 10/15/25 10:25 Height 5 ft 2 in Weight 213 lb 4 oz BMI 39.0 BP 126/80 Blood Pressure Location Lt brachial Position Sitting Pulse 88 Pulse Source Pulse Oximeter Pulse Oximetry (%) 97 Oxygen Delivery Method Room Air Intake Visit Reasons: 6 mo follow up-Conf Automotive Designer Required: No Accompanied by: Self / Same As Patient Allergies ibuprofen (IBUPROFEN) Allergy (Mild, Verified 10/15/25 10:24) RASH, hives HPI Comments Details: Nydia was seen today in F/U for CKD. She has multiple other medical issues including diabetes mellitus and hypertension. She had been on Jardiance, JELANI inhibitor and diuretics . Her serum creatinine is back to baseline . She has history of nephrolithiasis in the past. She underwent a renal ultrasound which did not show any hydronephrosis. She does not have any nausea, vomiting, diarrhea, hematuria, dizziness, chest pain, shortness of breath, proximal nocturnal dyspnea, orthopnea but has been having pedal edema. Her blood pressure has been fluctuant and needed quite a number medications to keep it close to goal. Her blood sugar control is fair. She claims to be hydrating adequately. She does not have any epistaxis, photosensitivity, new skin rashes or joint swellings. [facility] Medical History GERD (gastroesophageal reflux disease) PAF (paroxysmal atrial fibrillation) Barretts esophagus Hx of flexible sigmoidoscopy Osteoarthritis of left hip Spondylosis without myelopathy or radiculopathy, 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 Sacroiliitis Asthma WENDY (obstructive sleep apnea) Morbid obesity Swelling of both lower extremities Afib Disc degeneration, lumbar Cervical pain (neck) Calcaneal spur Benign neoplasm breast skin Bursitis, shoulder Xanthelasma Auditory hallucinations Impaired glucose tolerance Hyperlipidemia Anxiety Depression Adenomatous polyp of colon Esophagitis Hypertensive urgency Palpitations HTN (hypertension) Dyspepsia GERD (gastroesophageal reflux disease) Surgical History Hx of colonoscopy H/O esophagogastroduodenoscopy (09/01/15) Status post Margarita fundoplication (10/27/12) History of removal of cyst Hx of cholecystectomy History of hysterectomy Family History Father CVD (cardiovascular disease) HTN (hypertension) Diabetes Mother HTN (hypertension) Diabetes CVD (cardiovascular disease) Brother Pacemaker Maternal Grandmother Throat cancer Brother No problems noted. Daughter Hx LEEP (loop electrosurgical excision procedure), cervix, Other Mental health disorder Substance use disorder Social History Household Members: None Housing: House Are you a primary home child care provider to a significant other at home: No Do you presently have visiting nurse or other home services: No Alcohol intake: never Patient Tobacco Use Status: Never used Tobacco e-Cigarette/Vaping Use: Never Used Second Hand Smoke Exposure: No Advance Directives Date on File: 03/16/21 service: No Current occupational status: disabled Sexual orientation: Straight/Heterosexual Gender identity: Female Cognitive needs: No Hearing needs: No Vision needs: No Review of Systems Const All systems reviewed & are unremarkable except as noted in HPI and below Physical Exam Const General: comfortable and no acute distress Orientation/consciousness: patient oriented x3 HEENT Head: Yes normocephalic Mouth: Normal oral and palatal mucosa present Eyes EOM: EOMs intact bilaterally Neck Neck: Yes supple Resp Auscultation: clear to auscultation bilaterally Cardio Jugular venous distension: no JVD Rate: regular rate GI Palpation (GI): Soft to palpation Auscultation: normal bowel sounds General: Yes no CVA tenderness Back/Spine/Pelvis Back: no CVA tenderness Skin General skin exam: no rashes or lesions noted Neuro General: patient oriented x3 and moves all extremities Extrem General: Yes no pedal edema Results Reviewed Nephrology Results: Hgb, (12.0-16.0) 14.2 g/dl 08/09/25 WBC, (4.8-10.8) 7.5 X10*3/uL 08/09/25 Plt Count, (160-400) 287 X10*3/uL 08/09/25 Sodium, (135-145) 138 mmol/L 10/07/25 Potassium, (3.3-5.1) 4.6 mmol/L 10/07/25 Chloride, (96-108) 105 mmol/L 10/07/25 Carbon Dioxide, (22-29) 24 mmol/L 10/07/25 BUN, (9-16) 22 mg/dL H 10/07/25 Creatinine, (0.5-1.4) 1.28 mg/dL 10/07/25 Calcium, (8.4-10.2) 9.2 mg/dL 08/09/25 Urine Protein, (Neg-Trace) Trace mg/dL 08/09/25 Renal US 09/25/24 Assessment & Plan Assessment & Plan (1) HTN (hypertension): Code(s): I10 - Essential (primary) hypertension Category: Medical Qualifiers: Hypertension type: primary hypertension Qualified Code(s): I10 - Essential (primary) hypertension (2) History of renal calculi: Code(s): Z87.442 - Personal history of urinary calculi Category: Medical (3) CKD stage 3a, GFR 45-59 ml/min: Code(s): N18.31 - Chronic kidney disease, stage 3a Category: Medical Plan Nydia has had RUTH due to compromise in renal perfusion with resultant tubular injury which has resolved. She has been taking JELANI inhibitor, Jardiance, hydrochlorothiazide and nonsteroidals at that time. Her urine output is good. Her renal ultrasound did not show any obstructive uropathy. Her renal function is back to baseline. She is on multiple antihypertensive medications to keep her blood pressure at goal. She is not known to have any significant proteinuria. She clearly needs to lose significant weight. She was encouraged to avoid nonsteroidal anti-inflammatories. She needs to cut back sodium in the diet especially given history of renal calculus and hypertension. She also follows up with cardiology ( A Margaux). Further management is pending evolving data Orders: Orders Protein Creatinine Ratio, Ur 6 Months I10 - Essential (primary) hypertension, N18.31 - Chronic kidney disease, stage 3a, Z87.442 - Personal history of urinary calculi Creatinine 6 Months I10 - Essential (primary) hypertension, N18.31 - Chronic kidney disease, stage 3a, Z87.442 - Personal history of urinary calculi Electrolytes 6 Months I10 - Essential (primary) hypertension, N18.31 - Chronic kidney disease, stage 3a, Z87.442 - Personal history of urinary calculi Blood Urea Nitrogen 6 Months I10 - Essential (primary) hypertension, N18.31 - Chronic kidney disease, stage 3a, Z87.442 - Personal history of urinary calculi Coding Level of Care Code Est Pt Level 4 (92204) Diagnoses Primary hypertension I10 Hypertension type: primary hypertension History of renal calculi Z87.442 CKD stage 3a, GFR 45-59 ml/min N18.31
[2025-10-15 10:25] VITALS: BP 126/80; PULSE 88; O2SAT 97; BMI 39.0
--- OUTSIDE RECORDS SUMMARY | 2025-10-15 12:09 | XMS_ITS | Patient Health Record ---
Author Organization [facility] Address [address] [place] [address] Care Team Providers Care Engineering Executive Name Role Phone NO, PCP Primary Care [...] review and pick correct strength-formulat ion from [employer] options. If intended option is not shown, [...] Active Encounters Encounter Location Date Provider Diagnosis [id number] [place] [address] 08/03/2025 Provider Migration Plan Of Treatment No Information Insurance Providers Payer Name Payer Address Payer Phone Subscriber Number Group Number Insured Name Patient Relationship to Insured Coverage Start Date Coverage End Date [employer] [address] [place] [address] [id number] Nydia Schuster Self - patient is the insured Medical (General) History Medical History History ICD Code HTN Depression Asthma Astma exacerbation Lumbar back pain Xanthelasma Hot flashes due to menopause Carpal tunnel syndrome on both sides Other chronic pain anxiety
--- OUTSIDE RECORDS SUMMARY | 2025-10-15 12:09 | XMS_ITS | Clinical Summary ---
Author Organization [facility] Facility Address [address] [place] [address] Care Team Providers Care Weave Defect Charting Clerk Name Role Phone Alfredo Massey NP Primary Care Provider [phone] Allergies Active Allergy Reactions Criticality Noted Date [...] Of [address] [place] [address] Johnson Sosa MD from Last 3 Months [...] to complete this topic Insurance * Guarantor: Nyida Schuster Account Type Relation to Patient Date of Phone Billing Address Personal/Family Self [address] ([id number]) * Guarantor: Landen Nydia Account Type Relation to Patient Date of Phone Billing Address Personal/Family Self 1965 [id number] [facility] ([id number]) Care Teams Weave Defect Charting Clerk Relationship Specialty Start Date End Date Alfredo Massey NP [address] [place] [address] PCP - General Nurse Practitioner 03/03/22
--- OUTSIDE RECORDS SUMMARY | 2025-10-15 12:09 | XMS_ITS | Patient Health Record ---
Author Organization [facility] Kwesi mckinley [place] Address [address] [facility] [place] [address] Care Team Providers Care Starch Treating Assistant Name Role Phone Alfredo Rodrigues Primary Care Provider Unav ailable Ayush Hyman Unavailable [phone] Allergies Allergen (clinical drug ingredient) Drug/Non Drug [...] Insured Coverage Start Date Coverage End Date [facility] SCO Claims [address] [place] [address] [id number] Remington swan Nydia Self - patient is [...] Hospitalization History Reason Date(Month/Year) hypertension childbirth 2012 [facility] Heart palpitations April or May 2018
== END 2025-10-15 10:33 | disposition home or self-care (01) ==
LOC: HO.HKAS 10:04
PROVIDERS: PCP Nurse Practitioner Family; Visit Provider Internal Medicine Nephrology
DX: I10 Essential (primary) hypertension (principal); Z87.442 Personal history of urinary calculi; N18.31 Chronic kidney disease, stage 3a
CPT/HCPCS: 99214

== ENCOUNTER → 2025-10-15 10:03 | Outpatient (BNVA) | payer OTHER, SELFPAY | PROVIDERS: PCP Nurse Practitioner Family; Visit Provider Internal Medicine Nephrology | DX: I12.9 Hypertensive chronic kidney disease with stage 1 through stage 4 chronic kidney disease, or unspecified chronic kidney disease (principal); E11.22 Type 2 diabetes mellitus with diabetic chronic kidney disease; N18.31 Chronic kidney disease, stage 3a; Z87.442 Personal history of urinary calculi; Z79.84 Long term (current) use of oral hypoglycemic drugs | CPT/HCPCS: 99212 ==

== ENCOUNTER 2025-10-29 14:50 | Outpatient (AMB) | payer OTHER, SELFPAY ==
--- OUTSIDE RECORDS SUMMARY | 2025-08-03 16:00 | XMS_ITS ---
Author Organization [facility] Address [address] [place] [address] Care Team Providers Care Audio/Video Technician Name Role Phone NO, PCP Primary Care Provider Migration, Provider Unavailable Unavailable Allergies Allergen (clinical drug ingredient) Drug/Non Drug Allergy documented on EMR Reaction Allergy Type Onset Date Status ibuprofen Ibuprofen hives Drug Allergy Active [facility]AS[facility]IT [facility] Encounter Medications Medication SIG (Take, Route, Frequency, Duration) Notes Start Date End Date Status traMADol HCl 50 MG 1 tab(s) orally every 4 hours Not-Taking Zolpidem Tartrate 5 MG 1 tab(s) orally once a day (at bedtime) Active amLODIPine Besylate 10 MG 1 tab(s) orally once a day Active OXYCODONE/APAP 5/325MG ONE ORALLY QID *Please review for potential replacement for e-prescription and drug interaction check* Active Xarelto *Please review and pick correct strength-formulat ion from [employer] options. If intended option is not shown, discontinue and re-order from Quick Search* Active CombiPatch 0.05-0.25 MG/DAY 1 PATCH applied topically 2 times a week Not-Taking Albuterol Sulfate HFA 108 (90 Base) MCG/ACT 2 puff(s) inhaled 4 times a day Active Omeprazole 20 MG 1 cap(s) orally once a day Active Flovent HFA CFC FREE 110 MCG/INH 2 PUFF(S) INHALED 2 TIMES A DAY *Please review and pick correct strength-formulat ion from [employer] options. If intended option is not shown, discontinue and re-order from Quick Search* Active Carvedilol 12.5 MG 1 tab(s) orally 2 times a day Active Sertraline HCl 100 MG 1 tab(s) orally once a day Active busPIRone HCl 15 MG 1 tab(s) orally 2 times a day Active Lisinopril 40 MG 1 tab(s) orally once a day Active TRAZODONE 50MG 150 MG 1 TAB(S) ORALLY ONCE A DAY (AT BEDTIME) *Please review for potential replacement for e-prescription and drug interaction check* Not-Taking Spironolactone 25 MG 1 tab(s) orally 2 times a day Active Abilify 5 MG 1 tab(s) orally once a day Active Encounters Encounter Location Date Provider Diagnosis [facility] [address] [place] [address] 08/03/2025 Provider Migration Plan Of Treatment No Information Progress Notes * SANCHEZCarlotamineshDOB:1964 (60 yo F)Acc No.[id number]:08/03/2025 Patient: Nydia MORGAN Provider: :1965 A ge:60 Y S ex:Female Date:08/03/2025 Address:[address] [place], [place] [id number] Pcp:PCP NO Subjective: * Chief Complaints: * [facility] . [facility]. * Medical History: * Medications: T aking Abilify 5 MG Tablet 1 tab(s) orally once a day , Taking busPIRone HCl 15 MG Tablet 1 tab(s) orally 2 times a day , Taking Sertraline HCl 100 MG Tablet 1 tab(s) orally once a day , Taking Lisinopril 40 MG Tablet 1 tab(s) orally once a day , Taking Spironolactone 25 MG Tablet 1 tab(s) orally 2 times a day , Taking Omeprazole 20 MG Capsule Delayed Release 1 cap(s) orally once a day , Taking Carvedilol 12.5 MG Tablet 1 tab(s) orally 2 times a day , Taking Flovent HFA CFC FREE 110 MCG/INH AEROSOL 2 PUFF(S) INHALED 2 TIMES A DAY , Notes to Pharmacist: *Please review and pick correct strength-formulation from [facility] options. If intended option is not shown, discontinue and re-order from Quick Search*, Taking Albuterol Sulfate HFA 108 (90 Base) MCG/ACT Aerosol Solution 2 puff(s) inhaled 4 times a day , Taking Zolpidem Tartrate 5 MG Tablet 1 tab(s) orally once a day (at bedtime) , Taking OXYCODONE/APAP 5/325MG TAB ONE ORALLY QID , Notes to Pharmacist: *Please review for potential replacement for e-prescription and drug interaction check*, Taking amLODIPine Besylate 10 MG Tablet 1 tab(s) orally once a day , Taking Xarelto , Notes to Pharmacist: *Please review and pick correct strength-formulation from [employer] options. If intended option is not shown, discontinue and re-order from Quick Search*, Not-Taking/PRN TRAZODONE 50MG 150 MG TABLET 1 TAB(S) ORALLY ONCE A DAY (AT BEDTIME) , Notes to Pharmacist: *Please review for potential replacement for e-prescription and drug interaction check*, Not-Taking/PRN CombiPatch 0.05-0.25 MG/DAY Patch Twice Weekly 1 PATCH applied topically 2 times a week , Not- Taking/PRN traMADol HCl 50 MG Tablet 1 tab(s) orally every 4 hours * Allergies: I buprofen: hives. Objective: * Vitals: Assessment: Plan: * Treatment: * Images: Billing Information: * Visit Code: * Procedure Codes: * Electronic signature of Prov ider Migration on 10/29/2025 at 09:00 PM EST Sign off status: Pending * Provider: Date: 0 08/03/2025 Generated for Jay latif/Gregg/Omi on: 1 12/30/2024 09:00 PM EST
[2025-10-29 15:16] VITALS: BP 130/72; PULSE 72; BMI 39.1
--- NOTE | 2025-10-29 15:16 | A.OFFVIS_ITS ---
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 Driving Required: No Allergies ibuprofen (IBUPROFEN) Allergy (Mild, Verified 10/29/25 15:19) RASH, hives Medication List - Last Reconciled 10/29/25 by DIONICIO Keenan acetaminophen ER (Tylenol 8 Hour) 650 mg PO Q12H PRN albuterol sulfate 5 mg inhalation Q4H PRN albuterol sulfate 90 mcg/actuation 2 puffs inhalation Q20M PRN amlodipine 10 mg PO DAILY 90 days aripiprazole 5 mg PO DAILY atorvastatin 40 mg PO DAILY blood pressure kit-extra large As directed blood sugar diagnostic ([employer] Coffeeuch Ultra Test strips) Use to check blood sugar twice daily: fasting blood sugar and a random blood sugar blood-glucose meter (Wattvision Ultra2 Meter) Use to check blood sugar twice daily: fasting blood sugar and a random blood sugar buspirone mg PO carvedilol 25 mg PO BID diclofenac sodium 1% (Arthritis Pain (diclofenac)) 4 grams topical QID 30 days dicyclomine 20 mg PO BID PRN 90 days docusate sodium 100 mg PO BEDTIME empagliflozin 25 mg PO DAILY 90 days flash glucose scanning reader (Somero EnterprisesStyle Susu 2 Harmony) As directed flash glucose sensor (Som[employer]Style Susu 2 Sensor kit) test blood sugar 4 times per day fluticasone propionate 110 mcg/actuation 1 puff inhalation BID 30 days gabapentin 300 mg PO BEDTIME 30 days humidifiers As directed hydrochlorothiazide 25 mg PO DAILY 30 days hydroxyzine HCl 25 mg PO QID incontinence pad, liner, disp use daily for incont ketoconazole 2% 1 appl topical DAILY lancets Use to check blood sugar twice daily: fasting blood sugar and a random blood sugar magnesium oxide 400 mg PO BEDTIME 30 days melatonin 3 mg PO QPM naloxone 4 mg/actuation (Narcan) 4 mg intranasal Q2M PRN omeprazole 20 mg PO BID rivaroxaban (Xarelto) 20 mg PO DAILY sennosides-docusate sodium 8.6-50 mg (Senna Plus) 2 tab-caps (2 x 8.6-50 mg) PO BEDTIME 60 days sertraline 100 mg PO DAILY spironolactone 25 mg PO BID tizanidine 4 mg PO TID PRN zolpidem 5 mg PO BEDTIME PRN HPI HPI r/s 10/15/25 1 yr followup w/ekg: Details: The patient is a 60-year-old female presenting for a one-year follow-up of paroxysmal atrial fibrillation and hypertension. She has a past medical history of morbid obesity, sleep apnea, hyperlipidemia, GERD, diabetes, and neuropathy. She also reports chronic back pain with sciatica, which limits her activity and requires the use of a cane. Last Echocardiogram (05/05/2023): EF 60-65% with normal valves, normal RV systolic pressure, and normal right and left atrial size. Holter monitor (05/05/2023): After nearly 8 days of monitoring, results showed sinus rhythm with an average heart rate of 76 bpm, occasional PACs and PVCs, and 53 short runs of supraventricular tachycardia (SVT), with the longest run of 12 beats at a rate of 180 bpm. She experiences heart palpitations approximately twice a month, which she describes as rapid and lasting for seconds to about two minutes. She occasionally random lightheadedness but denies any syncope, falls,. No chest pain, or dyspnea. She reports no bleeding issues with her Xarelto therapy. Her current medications include amlodipine, atorvastatin, carvedilol, hydrochlorothiazide, Xarelto, and spironolactone. The patient has not been hospitalized or visited the ER in the past year but did have an urgent care visit for a sore throat. She occasionally drinks caffeinated coffee but does not consume it or tea daily. She denies alcohol use. [facility] Medical History GERD (gastroesophageal reflux disease) PAF (paroxysmal atrial fibrillation) Barretts esophagus Hx of flexible sigmoidoscopy Osteoarthritis of left hip Spondylosis without myelopathy or radiculopathy, 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 Sacroiliitis Asthma WENDY (obstructive sleep apnea) Morbid obesity Swelling of both lower extremities Afib Disc degeneration, lumbar Cervical pain (neck) Calcaneal spur Benign neoplasm breast skin Bursitis, shoulder Xanthelasma Auditory hallucinations Impaired glucose tolerance Hyperlipidemia Anxiety Depression Adenomatous polyp of colon Esophagitis Hypertensive urgency Palpitations HTN (hypertension) Dyspepsia GERD (gastroesophageal reflux disease) Surgical History Hx of colonoscopy H/O esophagogastroduodenoscopy (09/01/15) Status post Margarita fundoplication (10/27/12) History of removal of cyst Hx of cholecystectomy History of hysterectomy Family History Father CVD (cardiovascular disease) HTN (hypertension) Diabetes Mother HTN (hypertension) Diabetes CVD (cardiovascular disease) Brother Pacemaker Maternal Grandmother Throat cancer Brother No problems noted. Daughter Hx LEEP (loop electrosurgical excision procedure), cervix, Other Mental health disorder Substance use disorder Social History Household Members: None Housing: House Are you a primary health care facilities inspector to a significant other at home: No Do you presently have visiting nurse or other home services: No Alcohol intake: never Patient Tobacco Use Status: Never used Tobacco e-Cigarette/Vaping Use: Never Used Second Hand Smoke Exposure: No Advance Directives Date on File: 03/16/21 service: No Current occupational status: disabled Sexual orientation: Straight/Heterosexual Gender identity: Female Cognitive needs: No Hearing needs: No Vision needs: No Review of Systems Const All systems reviewed & are unremarkable except as noted in HPI and below ENT Denies dizziness Card Denies chest pain, Denies chest pain at rest, Denies chest pain with activity, Reports rapid heart rate (brief), Denies pedal edema, Denies edema, Denies leg edema, Denies lightheadedness, Denies palpitations, Denies dyspnea, Denies dyspnea on exertion and Denies orthopnea Resp Denies cough, Denies dyspnea and Denies dyspnea on exertion GI Denies hematochezia and Denies change in stool character Musc Denies abnormal gait, Denies limited range of motion, Denies muscle cramps, Denies muscle weakness, Denies numbness, Denies radiating pain into limb, Denies stiffness and Denies tingling Neuro Denies abnormal gait, Denies dizziness, Denies numbness and Denies tingling Endo Denies palpitations Physical Exam Vital Signs: Last Vital Signs Pulse 72 10/29/25 15:16 BP 130/72 10/29/25 15:16 BMI result Body Mass Index 39.1 Const General: cooperative, healthy appearing, comfortable and no acute distress Orientation/consciousness: patient oriented x3 HEENT Head: Yes normal to inspection Eyes Sclerae: sclerae normal Neck Neck: Yes normal visual inspection Resp Effort & Inspection: normal respiratory effort Auscultation: clear to auscultation bilaterally, no rales, no rhonchi and no wheezes Cardio Rate: regular rate Rhythm: regular rhythm Heart sounds: S1 normal heart sound present, S2 normal heart sound present, no gallops, no murmurs and no rubs Neuro General: patient oriented x3 Extrem General: Yes normal to inspection, No no pedal edema and No calf tenderness Psych Appearance: grossly normal Mental Status: mental status grossly normal Speech and movement: Normal speech and movement present Office Procedures EKG Details: Today, read by me, normal sinus rhythm, rate 72, Qtc 427ms [id number], Complete Assessment & Plan Assessment & Plan (1) Paroxysmal atrial fibrillation: Code(s): I48.0 - Paroxysmal atrial fibrillation Category: Medical Plan: History of paroxysmal atrial fibrillation. History of paroxysmal atrial fibrillation that is treated with rhythm control. She is on carvedilol 25 mg b.i.d.. Last echo 05/05/2025 shows EF 60-65%, normal atrial sizes. Last Holter does show no AFib, brief SVT episodes noted. She is feeling heart palpitations consistent with brief SVT. Episodes do not cause her much concern. EKG today showing normal sinus rhythm, rate 72. She is on Xarelto for anticoagulation. Labs 08/09/2025 showed hematocrit 42.3. Labs 10/07/2025 showed creatinine 1.28. No medication changes made. Cardiology follow-up 1 year, sooner if needed. (2) Atrial tachycardia: Code(s): I47.19 - Other supraventricular tachycardia Category: Medical Plan: Brief episodes of atrial tach as above. (3) HTN (hypertension): Code(s): I10 - Essential (primary) hypertension Category: Medical Qualifiers: Hypertension type: primary hypertension Qualified Code(s): I10 - Essential (primary) hypertension Plan: Blood pressure goal less than 130/80. At goal at this time. No medication changes made. (4) Anticoagulated: Code(s): Z79.01 - FDC (current) use of anticoagulants Category: Medical Plan: On Xarelto. No bleeding issues reported. Plan I informed the patient that her blood pressure is well-controlled at 130/72 and her EKG today was normal. I reviewed the results of her last heart monitor, explaining that the brief bursts of rapid heartbeat it detected are consistent with the palpitations she occasionally feels. I explained that as long as these episodes remain brief, no medication changes are needed, noting that she is already on a high dose of carvedilol. I advised her to call if the palpitations become longer or more frequent, as we may need to consider a different medication. We discussed triggers for palpitations, including caffeine, alcohol, dehydration, and stress. I reassured her that her echocardiogram from last year showed a strong heart and that physical activity is beneficial. I recommended she follow up in one year with Dr. Mcclendon, or sooner if her symptoms change. Patient Instructions: - Continue taking all your current medications as prescribed; we are not making any changes today. - Be aware that caffeine, alcohol, not drinking enough water, or being under a lot of stress can sometimes make your heart feel more jumpy. - If your heart palpitations start to happen more often or last for a longer time, please call our office to let us know. - Staying physically active by doing things like going for walks is good and healthy for your heart. - Your blood pressure is good, and you are not having any bleeding problems with your blood thinner, Xarelto. - Please schedule a follow-up appointment to see Dr. Lebron in one year, or call us sooner if you have any new or worsening symptoms. Patient was informed and verbally consented to the use of an ambient scribe for clinic note documentation during this visit. Visit time spent on chart review, interview, assessment, orders, documentation. Coding Level of Care Code Est Pt Level 4 (64954) Complex visit Add On G2211 Diagnoses Paroxysmal atrial fibrillation I48.0 Atrial tachycardia I47.19 Primary hypertension I10 Hypertension type: primary hypertension Anticoagulated Z79.01 CPT Codes EKG - CPT: 57111-[id number], Complete ([id number]) Time Spent (min) 28
--- OUTSIDE RECORDS SUMMARY | 2025-10-29 21:00 | XMS_ITS | Patient Health Record ---
Author Organization [facility] Address [address] [place] [address] Care Team Providers Care Garment Form Assembler Name Role Phone NO, PCP Primary Care [...] review and pick correct strength-formulat ion from Forgame options. If intended option is not shown, [...] Encounter Location Date Provider Diagnosis [id number] [place] [address] 08/03/2025 Provider Migration Plan Of Treatment No Information Insurance Providers Payer Name Payer Address Payer Phone Subscriber Number Group Number Insured Name Patient Relationship to Insured Coverage Start Date Coverage End Date [employer] [address] [place] [address] [phone] [id number] Nydia Schuster Self - patient is the insured Medical (General) History Medical History History ICD Code HTN Depression Asthma Astma exacerbation Lumbar back pain Xanthelasma Hot flashes due to menopause Carpal tunnel syndrome on both sides Other chronic pain anxiety
--- OUTSIDE RECORDS SUMMARY | 2025-10-29 21:00 | XMS_ITS | Patient Health Record ---
Author Organization [facility] Kwesi mckinley [place] Address [address] [place] [address] Care Team Providers Care Photoengraving Proofer Apprentice Name Role Phone Alfredo Rodrigues Primary Care Provider Unav ailable Ayush Hyman Unavailable [phone] Allergies Allergen (clinical drug ingredient) Drug/Non Drug [...] Insured Coverage Start Date Coverage End Date [facility] SCO Claims [address] [place] [address] [id number] Remington swan Nydia Self - patient is [...] Hospitalization History Reason Date(Month/Year) hypertension childbirth 2012 [facility] Heart palpitations April or May 2018
== END 2025-10-29 15:48 | disposition home or self-care (01) ==
LOC: HO.HCS 14:51
PROVIDERS: PCP Nurse Practitioner Family; Visit Provider Nurse Practitioner Family
DX: I48.0 Paroxysmal atrial fibrillation (principal); I47.19 Other supraventricular tachycardia; I10 Essential (primary) hypertension; Z79.01 Long term (current) use of anticoagulants
CPT/HCPCS: 93010; 99214; G2211

== ENCOUNTER → 2025-10-29 14:50 | Outpatient (BNVA) | payer OTHER, SELFPAY | PROVIDERS: PCP Nurse Practitioner Family; Visit Provider Nurse Practitioner Family | DX: I48.0 Paroxysmal atrial fibrillation (principal); I10 Essential (primary) hypertension; I47.19 Other supraventricular tachycardia; Z79.01 Long term (current) use of anticoagulants | CPT/HCPCS: 93005; 99212 ==